=== PATIENT | male | born 1970 | race African-American/Black ===

== ENCOUNTER 2016-08-25 17:31 | Inpatient (IN) | payer SELFPAY ==
[~2016-08-25] VITALS: Ht 175.3 cm; Wt 150.4 kg
[2016-08-25 17:35] VITALS: BP 261/146; PULSE 74; RESP 20; TEMP 98.8; O2SAT 95
[2016-08-25 17:45] VITALS: BP 179/107
--- NOTE | 2016-08-25 18:53 | RADRPT ---
EXAM DATE/TIME: 08/25/2016 18:39 [facility] COMPARISON: No previous studies available for comparison. INDICATIONS : Shortness of breath. MEDICAL HISTORY : None. SURGICAL HISTORY : None. ENCOUNTER: Initial ACUITY: 1 day PAIN SCORE: 0/10 LOCATION: chest FINDINGS: A single view of the chest demonstrates the lungs to be symmetrically aerated without evidence of mas s, infiltrate or effusion. Heart enlarged. Pulmonary vascularity normal. The cardiomediastinal conto urs are unremarkable. Osseous structures are intact. CONCLUSION: Cardiomegaly. Giorgio Watson MD on August 25, 2016 at 18:51 Board Certified Radiologist. This report was verified electronically.
--- NOTE | 2016-08-25 18:54 | RADRPT ---
EXAM DATE/TIME: 08/25/2016 18:42 [facility] COMPARISON: No previous studies available for comparison. INDICATIONS : Patient complains of left foot pain. Laceration to 2nd digit. No known injury. MEDICAL HISTORY : None. SURGICAL HISTORY : None. ENCOUNTER: Initial ACUITY: 1 day PAIN SCORE: 10/10 LOCATION: Left Foot FINDINGS: Three view examination of the left foot demonstrates no dislocation, or fracture. The tarsal bones appear intact. Large plantar calcaneal spur. Spurring at the insertion the Achilles tendon. Mild dege nerative changes of the midfoot. Diffuse soft tissue swelling. Laceration to second digit. No foreign body.. CONCLUSION: Soft tissue swelling without acute bony abnormality. Laceration to the second digit. No foreign body. Giorgio Watson MD on August 25, 2016 at 18:52 Board Certified Radiologist. This report was verified electronically.
--- NOTE | 2016-08-25 18:58 | PD ---
HPI Chief Complaint: Laceration/Skin Injury Time Seen by Provider: 18:54 Travel History International Travel<30 days: No Contact w/Intl Traveler<30days: No Traveled to known affect area: No History of Present Illness HPI 45-year-old male with history of hypertension presents to emergency department for evaluation of a wound to his second toe on his left foot that has been there for over a week. Patient does not recall injuring it. Reports pain at the site with swelling and erythema extending up to his left distal lower extremity. Denies any fever or chills. Patient states that his right ankle has also began to swell. Reports an increase in shortness of breath lately. Denies ingesting or tightness. Denies any recent illnesses, fever, chills. Denies any history of diabetes but states his mother and grandmother were both diabetic. Denies any cardiac or CHF history. Has no other symptoms to report. PFSH Past Medical History Autoimmune Disease: No Blood Disorders: No Cancer: No Cardiovascular Problems: Yes (htn) Genitourinary: No Headaches: Yes Hypertension: Yes Musculoskeletal: No Psychiatric: No Sleep Apnea: Yes (usesbipap mask at night) Past Surgical History Abdominal Surgery: No AICD: No Cardiac Surgery: No Ear Surgery: No Endocrine Surgery: No Eye Surgery: No Gynecologic Surgery: No Pacemaker: No Thoracic Surgery: No Social History Tobacco Use: No Allergies-Medications (Allergen,Severity, Reaction): Coded Allergies: No Known Allergies (Verified Allergy, Severe, 01/05/04) Uncoded Allergies: nka (Allergy, Unknown, 02/26/03) Reported Meds & Prescriptions Reported Meds & Active Scripts Active Review of Systems Except as stated in HPI: all other systems reviewed are Neg Physical Exam Narrative GENERAL: Well-nourished male patient, ambulatory, short of breath, but in no acute distress SKIN: Warm and dry. 1 cm wound on the dorsal aspect of the left second toe proximal to the PIP. HEAD: Atraumatic. Normocephalic. EYES: Pupils equal and round. No scleral icterus. No injection or drainage. ENT: No nasal bleeding or discharge. Mucous membranes pink and moist. NECK: Trachea midline. No JVD. CARDIOVASCULAR: Regular rate and rhythm. No murmur appreciated. RESPIRATORY: No accessory muscle use. Diminished to auscultation. Breath sounds equal bilaterally. GASTROINTESTINAL: Abdomen soft, non-tender, nondistended. Hepatic and splenic margins not palpable. MUSCULOSKELETAL: No obvious deformities. No clubbing. No cyanosis. 2+ left lower extremity edema and 1+ right lower extremity edema. There is erythema and edema extending onto the left dorsal foot. The pulses are palpable. Cap refill is within normal limits. NEUROLOGICAL: Awake and alert. No obvious cranial nerve deficits. Motor grossly within normal limits. Normal speech. PSYCHIATRIC: Appropriate mood and affect; insight and judgment normal. Data Data Last Documented VS Vital Signs Date Time Temp Pulse Resp B/P Pulse Ox O2 Delivery O2 Flow Rate FiO2 08/25/16 17:45 179/107 08/25/16 17:35 98.8 74 20 95 Room Air Orders Complete Blood Count With Diff (08/25/16 18:27) Basic Metabolic Panel (Bmp) (08/25/16 18:27) Foot, Complete ([id number]) (08/25/16 ) Us Leg Venous Doppler (08/25/16 ) Iv Access Insert/Monitor (08/25/16 18:27) Electrocardiogram (08/25/16 ) B-Type Natriuretic Peptide (08/25/16 18:27) Ckmb (Isoenzyme) Profile (08/25/16 18:27) Magnesium (Mg) (08/25/16 18:27) Prothrombin Time / Inr (Pt) (08/25/16 18:27) Act Partial Throm Time (Ptt) (08/25/16 18:27) Troponin I (08/25/16 18:27) Chest, Single Ap (08/25/16 18:27) Hemoglobin (Hgb) A1c (08/25/16 18:27) MDM Medical Decision Making Medical Screen Exam Complete: Yes Emergency Medical Condition: Yes Medical Record Reviewed: Yes Differential Diagnosis Wound infected versus healing versus Cellulitis versus osteomyelitis versus new onset CHF versus DVT Narrative Course 45-year-old male presents to the emergency department for evaluation of a wound on his left second toe with no recollection of injury. Patient has bilateral lower extremity edema, worse on the left than the right with associated erythema on the left. Patient has also been short of breath and is noted to be short of breath after ambulation to his room. Patient will be transferred to a medical pod for more extensive workup. Condition: Stable Shy Kamara Aug 25, 2016 18:58
--- NOTE | 2016-08-25 19:40 | RADRPT ---
EXAM DATE/TIME: 08/25/2016 19:05 [facility] COMPARISON: No previous studies available for comparison. INDICATIONS : Left leg swelling. MEDICAL HISTORY : Hypertension. Sleep apnea. SURGICAL HISTORY : None. ENCOUNTER: Initial ACUITY: 2 day PAIN SCORE: 8/10 LOCATION: Left leg. TECHNIQUE: Venous ultrasound of the leg was performed from the inguinal ligament to the proximal calf. Real-alee e, color Doppler and spectral tracing, compression and augmentation techniques were used. FINDINGS: There is normal compressibility of the deep venous system from the inguinal region to the proximal ca lf. No echogenic clot is seen in the lumen of the common femoral, femoral, popliteal, and posterior tibial veins. There is a normal response of the venous system to proximal and distal augmentation an d respiration. CONCLUSION: No DVT in left leg. Giorgio Watson MD on August 25, 2016 at 19:38 Board Certified Radiologist. This report was verified electronically.
--- NOTE | 2016-08-25 19:51 | PD ---
HPI Chief Complaint: Laceration/Skin Injury Time Seen by Provider: 19:38 Travel History International Travel<30 days: No Contact w/Intl Traveler<30days: No Traveled to known affect area: No History of Present Illness HPI I assumed care of this patient pending lab work and imaging studies. In summary this is a 45-year-old male patient of Dr. Mack presents for evaluation of a wound. He first noticed 1 week ago. It is on the dorsal aspect of the left second toe. It is painful, throbbing, constant, worse with palpation. He does not recall what he cut his foot on. No fevers, chills, drainage. Last tetanus vaccination unknown. There is concerned because he does have lower extremity edema bilaterally. This is been ongoing for some time according to the patient. He denies any chest pain, shortness of breath, paroxysmal nocturnal dyspnea, dyspnea on exertion. No personal history of diabetes or congestive heart failure. No other complaints. PFSH Past Medical History Autoimmune Disease: No Blood Disorders: No Cancer: No Cardiovascular Problems: Yes (htn) Genitourinary: No Headaches: Yes Hypertension: Yes Musculoskeletal: No Psychiatric: No Sleep Apnea: Yes (usesbipap mask at night) Past Surgical History Abdominal Surgery: No AICD: No Cardiac Surgery: No Ear Surgery: No Endocrine Surgery: No Eye Surgery: No Gynecologic Surgery: No Pacemaker: No Thoracic Surgery: No Social History Tobacco Use: No Allergies-Medications (Allergen,Severity, Reaction): Coded Allergies: No Known Allergies (Verified Allergy, Severe, 01/05/04) Uncoded Allergies: nka (Allergy, Unknown, 02/26/03) Reported Meds & Prescriptions Reported Meds & Active Scripts Active Keflex (Cephalexin) 500 Mg Cap 500 Mg PO Q6H 10 Days Bactrim DS (Sulfamethoxazole-Trimethoprim) 800-160 Mg Tab 1 Tab PO BID Entresto (Sacubitril-Valsartan) 97-103 Mg Tab 1 Tab PO BID 30 Days Review of Systems Except as stated in HPI: all other systems reviewed are Neg Physical Exam Narrative GENERAL: Obese male in no acute distress SKIN: Warm and dry. There is a 1 cm linear wound on the dorsal aspect left second toe that is tender to palpation. No significant surrounding erythema. HEAD: Atraumatic. Normocephalic. EYES: Pupils equal and round. No scleral icterus. No injection or drainage. ENT: No nasal bleeding or discharge. Mucous membranes pink and moist. NECK: Trachea midline. No JVD. CARDIOVASCULAR: Regular rate and rhythm. No murmur appreciated. RESPIRATORY: No accessory muscle use. Clear to auscultation. Breath sounds equal bilaterally. GASTROINTESTINAL: Abdomen soft, non-tender, nondistended. Hepatic and splenic margins not palpable. MUSCULOSKELETAL: No obvious deformities. Skin as noted above. 2+ pitting edema in the lower extremities bilaterally. NEUROLOGICAL: Awake and alert. No obvious cranial nerve deficits. Motor grossly within normal limits. Normal speech. PSYCHIATRIC: Appropriate mood and affect; insight and judgment normal. Data Data Last Documented VS Vital Signs Date Time Temp Pulse Resp B/P Pulse Ox O2 Delivery O2 Flow Rate FiO2 08/25/16 22:03 68 254/168 08/25/16 20:38 24 93 Room Air 08/25/16 17:35 98.8 Orders Complete Blood Count With Diff (08/25/16 18:27) Basic Metabolic Panel (Bmp) (08/25/16 18:27) Foot, Complete ([id number]) (08/25/16 ) Us Leg Venous Doppler (08/25/16 ) Iv Access Insert/Monitor (08/25/16 18:27) Electrocardiogram (08/25/16 ) B-Type Natriuretic Peptide (08/25/16 18:27) Ckmb (Isoenzyme) Profile (08/25/16 18:27) Magnesium (Mg) (08/25/16 18:27) Prothrombin Time / Inr (Pt) (08/25/16 18:27) Act Partial Throm Time (Ptt) (08/25/16 18:27) Troponin I (08/25/16 18:27) Chest, Single Ap (08/25/16 18:27) Hemoglobin (Hgb) A1c (08/25/16 18:27) Tetanus/Diphtheria Tox Adult (Tetanus/Di (08/25/16 20:00) Enalaprilat Inj (Vasotec Inj) (08/25/16 21:00) CKMB (08/25/16 19:45) CKMB% (08/25/16 19:45) Hydralazine Inj (Apresoline Inj) (08/25/16 22:00) Labs Laboratory Tests Test 08/25/16 19:45 White Blood Count 6.2 TH/MM3 Red Blood Count 3.99 MIL/MM3 Hemoglobin 12.0 GM/DL Hematocrit 35.1 % Mean Corpuscular Volume 87.9 FL Mean Corpuscular Hemoglobin 30.0 PG Mean Corpuscular Hemoglobin 34.2 % Concent Red Cell Distribution Width 14.0 % Platelet Count 198 TH/MM3 Mean Platelet Volume 10.1 FL Neutrophils (%) (Auto) 66.8 % Lymphocytes (%) (Auto) 20.5 % Monocytes (%) (Auto) 8.5 % Eosinophils (%) (Auto) 3.6 % Basophils (%) (Auto) 0.6 % Neutrophils # (Auto) 4.1 TH/MM3 Lymphocytes # (Auto) 1.3 TH/MM3 Monocytes # (Auto) 0.5 TH/MM3 Eosinophils # (Auto) 0.2 TH/MM3 Basophils # (Auto) 0.0 TH/MM3 CBC Comment DIFF FINAL Differential Comment Prothrombin Time 10.0 SEC Prothromb Time International 0.9 RATIO Ratio Activated Partial 23.7 SEC Thromboplast Time Sodium Level 143 MEQ/L Potassium Level 3.6 MEQ/L Chloride Level 108 MEQ/L Carbon Dioxide Level 27.4 MEQ/L Anion Gap 8 MEQ/L Blood Urea Nitrogen 32 MG/DL Creatinine 3.14 MG/DL Estimat Glomerular Filtration 26 ML/MIN Rate Random Glucose 92 MG/DL Calcium Level 8.3 MG/DL Magnesium Level 2.3 MG/DL Total Creatine Kinase 172 U/L Creatine Kinase MB 1.4 NG/ML Troponin I 0.02 NG/ML MDM Medical Decision Making Medical Screen Exam Complete: Yes Emergency Medical Condition: Yes Medical Record Reviewed: Yes Differential Diagnosis Wound, ulceration, cellulitis, osteomyelitis Narrative Course The patient has a wound with an unknown etiology on the dorsal aspect of his left second toe. It is associated pain. He does have lower extremity edema. Workup was initiated by previous provider. Chest x-ray reveals cardiomegaly with no evidence of acute failure. Lower extremity ultrasound is negative for DVT. Foot x-ray reveals soft tissue swelling without acute bony abnormality, laceration to the second digit. The patient was able to find the name of the blood pressure medication that he has been out of for the past few weeks. he takes entresto 97/103 bid. His lab work has been reviewed with him. He has renal insufficiency with a BUN of 32 and a creatinine of 3.14. We have no recent baseline on record but he has been told by his primary care physician that he has kidney damage secondary to his hypertension. Initially the plan was to discharge the patient for close outpatient follow-up in the next 1-2 days. Patient was given IV Vasotec however his blood pressure remains markedly elevated at 254/168. Therefore the patient will be admitted for further management. Discussed with Cruz Ibrahim who is agreeable with admission to Dr. Westbrook. Clindamycin has been provided for the patient's cellulitis. Procedures EKG Prior to Arrival: Yes Diagnosis Primary Impression: Cellulitis of left foot Additional Impressions: Hypertensive urgency Renal insufficiency Admitting Information Admitting Physician Requests: Admit Scripts Cephalexin (Keflex)500 Mg [id number] Mg PO Q6H 10 Days Ref 0 Prov:Christina Augustin MD 08/25/16 Sulfamethoxazole-Trimethoprim (Bactrim DS)800-160 Mg Tab1 Tab PO BID #20 TAB Ref 0 Prov:Christina Augustin MD 08/25/16 Sacubitril-Valsartan (Entresto)97-103 Mg Tab1 Tab PO BID 30 Days Ref 0 Prov:Christina Augustin MD 08/25/16 Condition: Stable Jose Angel Santizo Aug 25, 2016 19:51
[2016-08-25] MEDS ORDERED: TETANUS/DIPHTHERIA TOXOID ADULT 0.5 ML VIAL IM ONE (20:00)
[2016-08-25 20:38] VITALS: BP_SYST 165; BP_SYST 245; BP_DIAS 146; PULSE 68; RESP 24; O2SAT 93
[2016-08-25 20:43] LABS: AUTOMATED NEUTROPHIL # 4.1 TH/MM3 (1.8-7.7); BASOPHIL % 0.6 % (0.0-2.0); EOSINOPHIL # 0.2 TH/MM3 (0-0.4); EOSINOPHIL % 3.6 % (0.0-4.0); HEMATOCRIT 35.1 % (39.0-51.0); HEMO FLAGS DIFF FINAL; LYMPH % 20.5 % (9.0-44.0); LYMPHOCYTE # 1.3 TH/MM3 (1.0-4.8); MEAN CELL VOLUME 87.9 FL (80.0-100.0); MEAN CORPUSCULAR HGB CONC 34.2 % (32.0-36.0); MONO % 8.5 % (0.0-8.0); NEUT % 66.8 % (16.0-70.0); PLATELET COUNT 198 TH/MM3 (150-450); RED BLOOD COUNT 3.99 MIL/MM3 (4.50-5.90); WHITE BLOOD COUNT 6.2 TH/MM3 (4.0-11.0)
[2016-08-25 20:55] LABS: APTT (PATIENT) 23.7 SEC (24.3-30.1); INTERNATIONAL NORMALIZED RATIO 0.9 RATIO
[2016-08-25] MEDS ORDERED: ENALAPRILAT 2.5 MG/2 ML VIAL IV PUSH ONE (21:00)
[2016-08-25 21:13] LABS: ANION GAP 8 MEQ/L (5-15); BICARBONATE 27.4 MEQ/L (21.0-32.0); BLOOD UREA NITROGEN 32 MG/DL (7-18); CHLORIDE 108 MEQ/L (98-107); GLOMERULAR FILTRATION RATE 26 ML/MIN (>89); MAGNESIUM 2.3 MG/DL (1.5-2.5); POTASSIUM 3.6 MEQ/L (3.5-5.1); SODIUM (NA) 143 MEQ/L (136-145)
[2016-08-25 21:18] LABS: CREATINE KINASE 172 U/L (39-308)
[2016-08-25 21:30] LABS: CKMB 1.4 NG/ML (0.5-3.6)
[2016-08-25] MEDS ORDERED: SACU1TAB4 PO (21:31)
[2016-08-25] MEDS ORDERED: CEPH-460 PO (21:37)
[2016-08-25] MEDS ORDERED: BACT800T5 PO (21:37)
[2016-08-25] MEDS ORDERED: hydrALAZINE HCL 20 MG/ML VIAL IV PUSH ONE (22:00)
[2016-08-25 22:03] VITALS: BP 254/168; PULSE 68
[2016-08-25] MEDS ORDERED: CLINDAMYCIN INJ 600 MG in SODIUM CHLORIDE 0.9% INJ 100 ML IV ONE (22:15)
[2016-08-25] MEDS ORDERED: SODIUM CHLORIDE 0.9% FLUSH 5 ML FLUSH FLUSH PRN (22:30)
[2016-08-25] MEDS: SODIUM CHLOR 0.9% 1000 ML INJ 1,000 ML IV SCH (22:44)
[2016-08-25] MEDS: METOPROLOL SUCCINATE 50 MG EXTENDED RELEASE TAB PO SCH (22:45)
[2016-08-25 23:30] VITALS: BP 250/136; PULSE 70; RESP 28; O2SAT 96
[2016-08-26] VITALS (14 sets, daily range): BP systolic 147–261; BP diastolic 79–126; PULSE 66–80; RESP 21–30; TEMP 97.6–99.6; O2SAT 92–97
--- NOTE | 2016-08-26 01:27 | RADRPT ---
EXAM DATE/TIME: 08/25/2016 23:33 [facility] COMPARISON: No previous studies available for comparison. INDICATIONS : Increased BUN/creatinine. MEDICAL HISTORY : Hypertension. Sleep apnea. SURGICAL HISTORY : None. ENCOUNTER: Initial ACUITY: 1 day PAIN SCORE: 0/10 LOCATION: Bilateral flank MEASUREMENTS: RIGHT KIDNEY: 12.4 x 6.5 x 6.4 cm LEFT KIDNEY: 12.5 x 5.1 x 6.8 cm FINDINGS: RIGHT KIDNEY: Renal cortex is normal in thickness and echotexture. No hydronephrosis, stone, or mass. LEFT KIDNEY: Renal cortex is normal in thickness and echotexture. No hydronephrosis, stone, or mass. BLADDER: Within normal limits given the degree of distension. CONCLUSION: Negative exam. Pb Orosco MD on August 26, 2016 at 1:25 Board Certified Radiologist. This report was verified electronically.
[2016-08-26] MEDS: niCARdipine INJ 25 MG in SODIUM CHLOR 0.9% 250 ML INJ 250 ML IV SCH ×5 (03:14→19:31)
[2016-08-26] MEDS ORDERED: CHLORHEXIDINE GLUCONATE 2 % 1 PACK (2 CLOTHS)(extra cloths) TOP PRN (04:00)
[2016-08-26] MEDS: CHLORHEXIDINE GLUCONATE 2 % 1 PACK (2 CLOTHS)(taper/protocol) TOP SCH (04:00)
[2016-08-26 06:27] LABS: AUTOMATED NEUTROPHIL # 4.1 TH/MM3 (1.8-7.7); BASOPHIL % 0.7 % (0.0-2.0); EOSINOPHIL # 0.2 TH/MM3 (0-0.4); EOSINOPHIL % 3.4 % (0.0-4.0); HEMATOCRIT 40.3 % (39.0-51.0); HEMO FLAGS DIFF FINAL; LYMPH % 19.9 % (9.0-44.0); LYMPHOCYTE # 1.2 TH/MM3 (1.0-4.8); MEAN CELL VOLUME 88.8 FL (80.0-100.0); MEAN CORPUSCULAR HEMOGLOBIN 30.1 PG (27.0-34.0); MEAN CORPUSCULAR HGB CONC 33.9 % (32.0-36.0); MONO % 8.8 % (0.0-8.0); NEUT % 67.2 % (16.0-70.0); PLATELET COUNT 197 TH/MM3 (150-450); RED BLOOD COUNT 4.54 MIL/MM3 (4.50-5.90); RED CELL DISTRIBUTION WIDTH 14.2 % (11.6-17.2)
[2016-08-26 06:52] LABS: BICARBONATE 26.9 MEQ/L (21.0-32.0); POTASSIUM 3.2 MEQ/L (3.5-5.1)
[2016-08-26 06:58] LABS: HDL CHOLESTEROL 31.9 MG/DL (40.0-60.0); URIC ACID 8.6 MG/DL (2.6-7.2)
[2016-08-26] MEDS: cloNIDine HCL 0.1 MG TAB PO PRN (07:32)
[2016-08-26] MEDS: SODIUM CHLORIDE 0.9% FLUSH 5 ML FLUSH FLUSH SCH ×2 (07:32→21:00)
[2016-08-26] MEDS: METOPROLOL SUCCINATE 50 MG EXTENDED RELEASE TAB PO SCH (07:32)
[2016-08-26] MEDS ORDERED: POTASSIUM CHLORIDE 25 MEQ EFFERVESCENT TAB PO ONE (08:30)
--- NOTE | 2016-08-26 10:41 | MH ---
cc: YAMILEX LORENZO MD DATE OF ADMISSION: 08/25/2016 DATE OF 1970 CHIEF COMPLAINT Left foot cellulitis, headache. International travel less than 30 days: None. HISTORY OF PRESENT ILLNESS This is a 45-year-old obese black male, who presented to the emergency room department with left foot edema and cellulitis. According to the record and the patient he recalls no injury but did note the swelling and edema moving up his left lower extremity. The patient denies any fever, no chills. Denies any diabetes. Denies any chest pain. No shortness of breath. No fever. During his initial evaluation phase, it is noted that the patient's blood pressure was severely abnormal. The patient states that he ran out of his blood pressure medications and has not been taking anything for approximately 1 month. He states that he was put on some new medicines by his PCP but did not have any further refills. He also states that he has not returned to his PCP for any further followup. The patient is currently resting in the bed. He is answering very simple questions but is not giving any extra information to his assessment. It is noted in the record that the patient uses BiPAP at night but currently denies any use of BiPAP. Currently the patient does complain of some headache since his admission to the hospital. He is currently resting in the intensive care setting. No family is available. PAST MEDICAL HISTORY According to the record: 1. Hypertension. 2. Obstructive sleep apnea. 3. COPD. 4. Obesity. PAST SURGICAL HISTORY None according to the record or the patient. ALLERGIES No known allergies. MEDICATION Reported medications: Entresto. Keflex Bactrim. SOCIAL HISTORY No tobacco, no alcohol. No illicit drugs reported. REVIEW OF SYSTEMS A 12-point review was done, positives noted: Headache. Left lower leg and foot cellulitis with mild abrasions to the second toe on his left foot and a very small area on the tip of his big toe, positive for edema. Uncontrolled hypertension. Other systems negative or unremarkable. FAMILY HISTORY Family history of diabetes. PHYSICAL EXAMINATION VITAL SIGNS: Temperature is 98.6, pulse 79, respirations labile between 24 and 30. Blood pressure initially noted in the emergency room 254/168, now 215/114 and has continued to decrease now to 148/85. O2 sat 95%, currently on room air. GENERAL: Obese black male, looks to be his stated age, resting in the bed, fairly non-conversational. SKIN: Skin is pink mucous membranes, warm and dry. HEENT: Atraumatic, normocephalic. PERRLA at 2. Mucous membranes are moist. NECK: Neck is obese, thick. CARDIOVASCULAR: S1-S2, distant heart sounds. No murmur, rubs or gallops heard. RESPIRATORY: Low volumes. Diminished breath sounds. GASTROINTESTINAL: Abdomen obese, soft, nontender, nondistended. Active bowel sounds in all four quads. MUSCULOSKELETAL: Moves his extremities with purpose. Noted small abrasions to left foot second toe and great toe. There is edema over the complete left foot extending up into the left ankle. Pulse is intact. NEUROLOGIC: Neurologically: He is alert, awake, speech is clear. PSYCHIATRIC: Mood and affect are quiet. DIAGNOSTIC DATA WBC count 6, RBC 4.54, hemoglobin 13.7, hematocrit 40.3. Other abnormals are monocyte auto count 8.8, PT/INR 0.9. Chemistry, sodium 145, potassium 3.2, chloride 107, amnion gap 11, carbon dioxide 26.9, BUN 30, creatinine 2.74, GFR of 30, uric acid 8.6, triglycerides 117, cholesterol 149, LDL cholesterol 94, HDL 31.9, ratio 4.67. Renin level is pending. Urine creatinine random 82. Microalbumin creatinine ratio 2354. Negative MRSA screen. IMAGING STUDIES Lower extremity: No DVT in left leg. Foot x-ray: Soft tissue swelling without bony abnormality, laceration to the second digit shows no foreign body. Chest x-ray: Cardiomegaly. Renal ultrasound: Negative exam. ASSESSMENT 1. Hypertensive urgency. 2. Renal insufficiency. 3. Cellulitis of the left foot. 4. Hypokalemia. 5. Cardiomegaly. 6. Possible gout, left lower extremity versus gouty arthritis. PLAN 1. Our plan is to admit inpatient status. We will monitor his vital signs q. 4 for any abnormals. His blood pressure will be monitored q. 1 or less until stable. 2. Activity can be out of bed with assistance only. 3. Cardiac monitoring for any dysrhythmias. 4. Heart healthy diet. 5. Intake and output with gentle hydration. 6. The patient has abnormal kidney function, this will be evaluated further. Reconcile medications as well as Satinder lopez. The patient also has IV medications including hydralazine for his blood pressure control and p.o. medications have been initiated. The patient also received a dose of clindamycin in the emergency room and IV Vasotec, a tetanus shot and IV hydralazine for BP stabilization. The patient needs intake and output monitoring and further monitoring of his labs as well as intensive blood pressure management. The patient is full code, full aggressive care and we will follow. Dictated by: DICK Gongora MD ARLEY Saldana/STU /8:59 AM /10:33 AM seen, examined by myself, Dr Lorenzo, Discussed with patient, nifedipine ER 90 mg daily to start today consult nephrology Discussed with mid level provider d/w nurse The exam, history, and the medical decision-making described in the above note were completed with the assistance of the mid-level provider. I reviewed the findings presented. I attest that I had a [id number] encounter with the patient on the same day, and personally performed and documented my assessment and findings in the medical record. HERMINIA
--- NOTE | 2016-08-26 12:20 | EC ---
Study Study Date:08/26/2016 STUDY CONCLUSIONS SUMMARY - Procedure narrative: Transthoracic echocardiography. Image quality was poor. The study was technically limited due to poor acoustic window availability. Scanning was performed from the parasternal, apical, and subcostal acoustic windows. - Left ventricle: Poorly visualized. The cavity size was normal. Wall thickness was increased in a pattern of moderate LVH. Systolic function was normal. The estimated ejection fraction was in the range of 60% to 65%. Regional wall motion abnormalities cannot be excluded. Doppler parameters are consistent with abnormal left ventricular relaxation (grade 1 diastolic dysfunction). - Aortic valve: Valve area: 4.47cm^2(VTI). Valve area: 4.08cm^2 (Vmax). - Tricuspid valve: Mild regurgitation. - Pericardium, extracardiac: A small pericardial effusion was identified. There was no evidence of hemodynamic compromise. If LV function is below 40, please consider prescribing an ACEI or ARB or document rationale for non-use. PROCEDURE DATA STUDY STATUS: Elective. Procedure: Transthoracic echocardiography. Image quality was poor. The study was technically limited due to poor acoustic window availability. Scanning was performed from the parasternal, apical, and subcostal acoustic windows. Study completion: The patient tolerated the procedure well. Transthoracic echocardiography. M-mode, complete 2D, complete spectral Doppler, and color Doppler. Height: Height: 69in. Weight: Weight: 340.3lb. Body mass index: BMI: 50.4kg/m^2. Body surface area: BSA: 2.59m^2. Patient status: Inpatient. CARDIAC ANATOMY LEFT VENTRICLE: Poorly visualized. The cavity size was normal. Wall thickness was increased in a pattern of moderate LVH. Systolic function was normal. The estimated ejection fraction was in the range of 60% to 65%. Regional wall motion abnormalities cannot be excluded. Doppler parameters are consistent with abnormal left ventricular relaxation (grade 1 diastolic dysfunction). AORTIC VALVE: Not well visualized. Probably trileaflet; normal thickness leaflets. Doppler: Transvalvular velocity was within the normal range. There was no stenosis. No regurgitation. Valve area: 4.47cm^2(VTI). Indexed valve area: 1.73cm^2/m^2 (VTI). Valve area: 4.08cm^2 (Vmax). Indexed valve area: 1.58cm^2/m^2 (Vmax). Mean gradient: 4mm Hg (S). AORTA: Aortic root: The aortic root was poorly visualized and mildly dilated. MITRAL VALVE: Poorly visualized. Structurally normal valve. Doppler: Transvalvular velocity was within the normal range. There was no evidence for stenosis. Trace regurgitation. LEFT ATRIUM: The atrium was normal in size. RIGHT VENTRICLE: The cavity size was normal. Wall thickness was normal. PULMONIC VALVE: Doppler: Transvalvular velocity was within the normal range. There was no evidence for stenosis. No regurgitation. TRICUSPID VALVE: Not well visualized. Structurally normal valve. Doppler: Transvalvular velocity was within the normal range. Mild regurgitation. PULMONARY ARTERY: The main pulmonary artery was normal-sized. Systolic pressure was within the normal range. RIGHT ATRIUM: The atrium was normal in size. PERICARDIUM: A small pericardial effusion was identified. There was no evidence of hemodynamic compromise. SYSTEMIC VEINS: Inferior vena cava: The vessel was normal in size. Patient weight: 340.3lb _Ejection fraction:_ 65-75% _Fractional shortening:_ 32% up to 5Kg 5-11.5Kg 11.6-22.9Kg 23-45Kg 45-57Kg Aortic Root 7-13 <17 13-22 17-27 17-27 LA diam 6-13 <23 24-38 33-47 37-40 RVID 10-17 7-15 7-15 7-18 8-17 LVIDd 12-22 <32 24-38 33-47 37-40 LVPW 2-4 3-6 5-7 6-8 7-8 IVS 2-4 3-6 5-7 6-8 7-8 BASIC MEASUREMENTS ADULT NORMAL Left ventricle LV internal dimension, ED, chordal *52.5 mm 43-52 level, PLAX LV internal dimension, ES, chordal 29.5 mm 23-38 level, PLAX Fractional shortening, chordal level, 44 % >29 PLAX LV posterior wall thickness, ED 16.2 mm IVS/LVPW ratio, ED 1.01 <1.3 Ventricular septum Septal thickness, ED 16.3 mm Aorta Root diameter, ED 41 mm Left atrium Anterior-posterior dimension 44 mm Anterior-posterior dimension index 1.7 cm/m^2 <2.2 DOPPLER MEASUREMENTS ADULT NORMAL Aortic valve Peak velocity, S 142 cm/s Mean velocity, S 98.4 cm/s VTI, S 26.6 cm Mean gradient, S 4 mm Hg Valve area, VTI 4.47 cm^2 Valve area index, VTI 1.73 cm^2/m^2 Valve area, Vmax 4.08 cm^2 Valve area index, Vmax 1.58 cm^2/m^2 Mitral valve Peak E-wave velocity 47.9 cm/s Peak A-wave velocity 68.1 cm/s Deceleration time *239 ms 150-230 Peak E/A ratio 0.7 Pulmonic valve Peak velocity, S 66.1 cm/s LEGEND: Mean values are shown as u=mean value. Asterisk (*) garcía values outside specified normal range. Prepared and signed by Valentino Delgado [id number]
[2016-08-26] MEDS: SODIUM CHLOR 0.9% 1000 ML INJ 1,000 ML IV SCH (12:56)
[2016-08-26] MEDS ORDERED: ACETAMINOPHEN 325 MG TAB PO SCH (13:00)
--- NOTE | 2016-08-26 13:34 | EKG ---
Date Performed: 08/25/2016 Time Performed: 20:07:00 PTAGE: 45 years EKG: Sinus rhythm NONSPECIFIC T-WAVE ABNORMALITY ABNORMAL ECG Compared to PREVIOUS TRACING , T-wave abnormality is slightly more prominent. PREVIOUS TRACIN01/04 18.01 DOCTOR: Alonzo Yanez Interpretating Date/Time 08/26/2016 13:34:01
[2016-08-26 14:19] LABS: HEMOGLOBIN A1a 1.2 %; HEMOGLOBIN A1b 1.4 %; HEMOGLOBIN Ao 86.9 %; HEMOGLOBIN LA1C 1.5 %; HEMOGLOBIN P3 3.4 %
[2016-08-26] MEDS: NIFEdipine 90 MG SUSTAINED RELEASE TAB PO SCH (16:11)
[2016-08-26 22:38] LABS: BLOOD, URINE NEG (NEG); COMMENT (UR) CULT NOT INDICATED; CULTURE IF INDICATED CULT NOT INDICATED; GLUCOSE,URINE TRACE mg/dL (NEG); KETONE, URINE NEG (NEG); NITRITE,URINE NEG (NEG); SQUAMOUS EPITHELIAL CELL URINE <1 /hpf (0-5); URINE COLOR LIGHT-YELLOW (YELLW/STRAW)
--- NOTE | 2016-08-26 23:23 | MB ---
cc: GORDON CANO MD DATE OF CONSULTATION 08/26/16 REASON FOR CONSULTATION Elevated BUN and creatinine for evaluation. HISTORY OF PRESENT ILLNESS This is a 45-year-old male with past medical history of hypertension, possible chronic kidney disease, chronic obstructive pulmonary disease, obesity, sleep apnea who came to the hospital with complaint of left foot pain and headache. I was called to see the patient because of elevated BUN and creatinine. The patient was found to have BUN of 37, creatinine of 3.1 on admission. 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 His creatinine was 1.28 in March of 2013. The patient has been following with Dr. Rai and, according to him, he ran out of his blood pressure medicine two weeks ago and started having headache. He also noted that he has swelling in his leg, especially in the left lower leg, he has swelling and there is some pain. He denies any shortness of breath. There is no chest pain. No palpitation. He has this headache and some time he feels dizzy and he has been taking ibuprofen off and on for his headache. There is no dysuria, hematuria or difficulty in passing urine. There is no history of renal stone. PAST MEDICAL HISTORY 1. Hypertension, 2. Chronic obstructive pulmonary disease. 3. Sleep apnea, 4. Possible chronic kidney disease, 5. Morbid obesity. PAST SURGICAL HISTORY None. REVIEW OF SYSTEMS The patient has no history of fever. No sore throat. He has generalized weakness and has had headache. Occasionally, he has dizziness. No chest pain or palpitations. No nausea or vomiting. No abdominal pain. No history of diarrhea. He has increased swelling in the leg and there is some pain in the left lower leg. He has no history of trauma. No dysuria, hematuria or difficulty in passing urine. He has been taking ibuprofen off and on for his headache. SOCIAL HISTORY There is no history of smoking or alcoholism. FAMILY HISTORY Positive for diabetes. ALLERGIES NO KNOWN DRUG ALLERGIES. MEDICATIONS 1. Normal saline 75 an hour. 2. Metoprolol 50 mg once a day. 3. Allopurinol 100 mg once a day. 4. Nifedipine 90 mg once a day. 5. Nicardipine infusion. 6. Clonidine. 7. Hydralazine PHYSICAL EXAMINATION General: The patient is awake, alert. He is not in acute distress. VITAL SIGNS: Blood pressure recorded is 174/101 temperature is 98.7, pulse is 69 and oxygen saturation is 96-97%. HEENT: Pupils equally reacting to light. Nonicteric sclerae. Conjunctivae normal. NECK: Supple. JVD is not elevated. LUNGS: The patient has bilateral good air entry with occasional wheezing. HEART: S1, S2, regular rhythm. ABDOMEN: Soft, lax. There is no tenderness. Bowel sounds positive. EXTREMITIES: He has bilateral 1+ edema. LABORATORY DATA WBC count is 6.0, hemoglobin 13.7, platelet count of 197. Sodium 145, potassium 3.2, chloride 107, bicarb 26.2, BUN 30, creatinine 2.7. Calcium 8.9, uric acid is 8.6, triglyceride 117, cholesterol 149, LDL is 94, HDL is 31.9. PSA was 0.21. Urinalysis showing that he has protein of 300, but this was done in 2012. IMAGING STUDIES The patient had ultrasound of the kidneys done which shows both kidneys normal in size. There is no hydronephrosis, stone or mass. A chest x-ray was done which shows some cardiomegaly. CARDIOLOGY STUDIES Echocardiogram was done which shows that he has ejection fraction of 60-65%. ASSESSMENT 1. Chronic kidney disease with acute kidney injury 2. Hypertension uncontrolled. 3. Hyperkalemia. 4. Cellulitis of left foot. 5. Cardiomegaly. 6. Hyperuricemia possibly gout. 7. History of sleep apnea. The patient has elevated BUN and creatinine. The differential diagnosis for his renal failure is that of hypertensive or renovascular disease or possibility of nonsteroidal anti-inflammatory drugs related or possibility of focal segmental glomerulosclerosis. I did discuss with the patient and told him to avoid taking any nonsteroidal anti-inflammatory drugs at present. We will try to control his blood pressure and we will send the urinalysis and send some serology for the possibility of any vasculitis playing a role here. In the meantime, once his blood pressure is controlled if he has significant proteinuria then he possibly will need kidney biopsy. There is an element of acute kidney injury which could be related to his nonsteroidal anti-inflammatory drugs so we will wait and see how much improvement he has. Thank you for the consultation. I will follow the patient while he is in the hospital. MD CAREY Avery/ /5:25 PM /11:10 PM
[2016-08-27] VITALS (16 sets, daily range): BP systolic 141–177; BP diastolic 68–92; PULSE 72–87; RESP 16–24; TEMP 98–99.1; O2SAT 92–99
[2016-08-27] MEDS: niCARdipine INJ 25 MG in SODIUM CHLOR 0.9% 250 ML INJ 250 ML IV SCH ×2 (00:53→06:00)
[2016-08-27] MEDS: SODIUM CHLOR 0.9% 1000 ML INJ 1,000 ML IV SCH (00:54)
[2016-08-27] MEDS: CHLORHEXIDINE GLUCONATE 2 % 1 PACK (2 CLOTHS)(taper/protocol) TOP SCH (04:00)
[2016-08-27] MEDS: ALLOPURINOL 100 MG TAB PO SCH (08:30)
[2016-08-27] MEDS: METOPROLOL SUCCINATE 50 MG EXTENDED RELEASE TAB PO SCH ×2 (08:30→19:38)
[2016-08-27] MEDS: NIFEdipine 90 MG SUSTAINED RELEASE TAB PO SCH (08:30)
[2016-08-27] MEDS: SODIUM CHLORIDE 0.9% FLUSH 5 ML FLUSH FLUSH SCH ×2 (09:00→19:39)
[2016-08-27 11:38] LABS: BICARBONATE 26.9 MEQ/L (21.0-32.0); POTASSIUM 3.5 MEQ/L (3.5-5.1)
--- NOTE | 2016-08-27 11:39 | HHI.NPPN ---
Subjective General Problems: Hypertension Renal Failure: Chronic, Acute History of Present Illness 45-year-old male with past medical history of hypertension, possible chronic kidney disease, chronic obstructive pulmonary disease, obesity, sleep apnea who came to the hospital with complaint of left foot pain and headache. I was called to see the patient because of elevated BUN and creatinine. The patient was found to have BUN of 37, creatinine of 3.1 on admission. 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 His creatinine was 1.28 in March of 2013. Additional Remarks Patient is alert, no headache, no SOB, eating well. Review of Systems General Constitutional: Fatigue Cardiovascular Cardiac: DUNNE Objective Data Data 08/26/16 08/27/16 19:00 07:00 Intake Total 1332 ml 1657 ml Output Total 1400 ml 2185 ml Balance -68 ml -528 ml Intake IV Total 1332 ml 1657 ml Output Urine Total 1400 ml 2185 ml # Voids 2 # Bowel Movements 0 Vital Signs Date Time Temp Pulse Resp B/P Pulse Ox O2 Delivery O2 Flow Rate FiO2 08/27/16 10:10 77 08/27/16 09:19 96 21 08/27/16 08:00 98.5 74 18 177/74 98 08/27/16 06:00 75 08/27/16 04:00 77 08/27/16 04:00 98.7 77 16 172/92 95 08/27/16 02:00 81 08/27/16 00:00 74 08/27/16 00:00 74 16 148/68 92 08/26/16 22:00 79 08/26/16 20:40 92 21 08/26/16 20:00 98.4 80 24 150/80 94 08/26/16 20:00 80 08/26/16 18:00 80 08/26/16 16:00 98.7 69 21 174/101 96 08/26/16 16:00 69 08/26/16 14:00 67 08/26/16 12:00 69 08/26/16 12:00 97.6 69 24 151/79 97 -: 08/26/16 0457 08/26/16 0451 Physical Exam General Appearance: No Acute Distress, Comfortable Eyes Eye Exam: Pupils Equal Throat Throat Exam: Oral Mucosa [place] & Moist Pulmonary Resp Exam: Breath Sounds Equal, No Distress, Decreased Bases, Diminished Breath Sounds Cardiology CV Exam: Regular Gastrointestinal/Abdomen GI Exam: Soft, Non-Tender, Bowel Sounds Present Extremeties Extremities Exam: Trace Edema Neurologic Neuro Exam: Alert, Awake, Oriented Psychiatric Psych Exam: Appropriate Responses Assessment/Plan Assessment Summary: NASH/Acute Renal Failure, Hypertension, CKD Stage III Problem List: (1) Hypertensive urgency (2) Renal insufficiency (3) Cellulitis of left foot Plan Patient is now off Nicardipine since AM. BP is better, will increase Metoprolol. Creatinine is slightly better, possibly has an element of NASH. Continue Hydration. Renin is done, will also send Aldosterone. Aden Block MD Aug 27, 2016 11:39
[2016-08-27] MEDS: cloNIDine HCL 0.1 MG TAB PO PRN ×2 (13:30→19:39)
[2016-08-27] MEDS: hydrALAZINE HCL 20 MG/ML VIAL IV PRN (13:40)
--- NOTE | 2016-08-27 15:53 | HHI.PR ---
Subjective Interval History alert, oriented, denies c/o Vitals/Results Intake & Output 08/26/16 08/26/16 08/27/16 15:00 23:00 07:00 Intake Total 1332 ml 816 ml 841 ml Output Total 1400 ml 850 ml 1335 ml Balance -68 ml -34 ml -494 ml IV Total 1332 ml 816 ml 841 ml Output Urine Total 1400 ml 850 ml 1335 ml # Voids 2 # Bowel Movements 0 0 Vital Signs Vital Signs Date Time Temp Pulse Resp B/P Pulse Ox O2 Delivery O2 Flow Rate FiO2 08/27/16 14:00 77 08/27/16 12:15 72 08/27/16 12:00 98.4 77 22 141/71 99 08/27/16 10:10 77 08/27/16 09:19 96 21 08/27/16 08:00 98.5 74 18 177/74 98 08/27/16 06:00 75 08/27/16 04:00 77 08/27/16 04:00 98.7 77 16 172/92 95 08/27/16 02:00 81 08/27/16 00:00 74 08/27/16 00:00 74 16 148/68 92 08/26/16 22:00 79 08/26/16 20:40 92 21 08/26/16 20:00 98.4 80 24 150/80 94 08/26/16 20:00 80 08/26/16 18:00 80 08/26/16 16:00 98.7 69 21 174/101 96 08/26/16 16:00 69 CBC/BMP: 08/26/16 0457 08/27/16 1022 Lab Results Laboratory Tests Test 08/26/16 08/27/16 18:40 10:22 Urine Color LIGHT-YELLOW Urine Turbidity CLEAR Urine pH 7.0 Urine Specific [place] 1.009 Urine Protein 100 mg/dL Urine Glucose (UA) TRACE mg/dL Urine Ketones NEG mg/dL Urine Occult Blood NEG Urine Nitrite NEG Urine Bilirubin NEG Urine Urobilinogen LESS THAN 2.0 MG/DL Urine Leukocyte Esterase NEG Urine RBC LESS THAN 1 /hpf Urine WBC LESS THAN 1 /hpf Urine Squamous Epithelial <1 /hpf Cells Microscopic Urinalysis Comment CULT NOT INDICATED Sodium Level 142 MEQ/L Potassium Level 3.5 MEQ/L Chloride Level 107 MEQ/L Carbon Dioxide Level 26.9 MEQ/L Anion Gap 8 MEQ/L Blood Urea Nitrogen 22 MG/DL Creatinine 2.35 MG/DL Estimat Glomerular Filtration 36 ML/MIN Rate Random Glucose 135 MG/DL Calcium Level 8.3 MG/DL Phosphorus Level 2.9 MG/DL Physical Exam General General Appearance: No Acute Distress, Comfortable, Obese Eyes Eye Exam: Pupils Equal Throat Throat Exam: Oral Mucosa [place] & Moist Pulmonary Resp Exam: Breath Sounds Equal, No Distress, Decreased Bases, Diminished Breath Sounds Cardiology CV Exam: Regular Gastrointestinal/Abdomen GI Exam: Soft, Non-Tender, Bowel Sounds Present Musculoskeletal MS Exam: Normal Tone Integumentary Skin Exam: Warm, Dry Skin Remarks ulcer dorsum left 2nd toe Extremeties Extremities Exam: Trace Edema Neurologic Neuro Exam: Alert, Awake, Oriented Psychiatric Psych Exam: Appropriate Responses VTE Prophylaxis VTE Prophylaxis Meds: Heparin Assessment/Plan Assessment/Plan ASSESSMENT . Hypertensive urgency.better today . morbid obesity . Renal insufficiency. . Cellulitis of the left foot. . Hypokalemia. . Cardiomegaly. . gout, Mnx nifedipine lopressor needs to lose weight renal following consult podiatry follow BMP d/w nurse Matthew Varghese MD Aug 27, 2016 15:53
[2016-08-28] VITALS (13 sets, daily range): BP systolic 143–171; BP diastolic 62–96; PULSE 74–90; RESP 17–28; TEMP 98.3–99.7; O2SAT 97–99
[2016-08-28] MEDS: hydrALAZINE HCL 20 MG/ML VIAL IV PRN ×3 (01:05→21:46)
[2016-08-28] MEDS: cloNIDine HCL 0.1 MG TAB PO PRN ×3 (02:26→23:27)
[2016-08-28] MEDS: ACETAMINOPHEN 325 MG TAB PO PRN ×3 (02:27→23:27)
[2016-08-28] MEDS: CHLORHEXIDINE GLUCONATE 2 % 1 PACK (2 CLOTHS)(taper/protocol) TOP SCH (04:00)
[2016-08-28] MEDS: NIFEdipine 90 MG SUSTAINED RELEASE TAB PO SCH (05:04)
[2016-08-28 06:22] LABS: BICARBONATE 24.5 MEQ/L (21.0-32.0); POTASSIUM 3.7 MEQ/L (3.5-5.1)
[2016-08-28] MEDS: ALLOPURINOL 100 MG TAB PO SCH (09:15)
[2016-08-28] MEDS: METOPROLOL SUCCINATE 50 MG EXTENDED RELEASE TAB PO SCH (09:15)
[2016-08-28] MEDS: SODIUM CHLORIDE 0.9% FLUSH 5 ML FLUSH FLUSH SCH ×2 (09:16→21:48)
--- NOTE | 2016-08-28 12:03 | HHI.NPPN ---
Subjective General Problems: Hypertension Renal Failure: Chronic, Acute History of Present Illness 45-year-old male with past medical history of hypertension, possible chronic kidney disease, chronic obstructive pulmonary disease, obesity, sleep apnea who came to the hospital with complaint of left foot pain and headache. I was called to see the patient because of elevated BUN and creatinine. The patient was found to have BUN of 37, creatinine of 3.1 on admission. 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 His creatinine was 1.28 in March of 2013. Additional Remarks Patient is alert, no acute complaints Review of Systems General Constitutional: Fatigue Cardiovascular Cardiac: DUNNE Objective Data Data 08/27/16 08/28/16 19:00 07:00 Intake Total 2477 ml 980 ml Output Total 2450 ml 1480 ml Balance 27 ml -500 ml Intake Oral 1600 ml 980 ml IV Total 877 ml Output Urine Total 2450 ml 1480 ml # Bowel Movements 0 Vital Signs Date Time Temp Pulse Resp B/P Pulse Ox O2 Delivery O2 Flow Rate FiO2 08/28/16 10:00 75 08/28/16 08:00 98.7 76 23 143/69 98 08/28/16 08:00 76 08/28/16 06:00 74 08/28/16 04:00 98.4 75 28 171/86 97 08/28/16 04:00 75 08/28/16 02:00 90 08/28/16 00:00 98.3 76 22 155/96 97 08/28/16 00:00 76 08/27/16 22:00 73 08/27/16 20:00 87 08/27/16 20:00 99.1 82 24 171/81 96 08/27/16 19:52 97 21 08/27/16 18:28 74 08/27/16 16:06 98.0 79 22 154/89 98 08/27/16 16:02 79 08/27/16 14:00 77 08/27/16 12:15 72 08/27/16 12:00 98.4 77 22 141/71 99 -: 08/26/16 0457 08/28/16 0510 Physical Exam General Appearance: No Acute Distress, Comfortable, Obese Eyes Eye Exam: Pupils Equal Throat Throat Exam: Oral Mucosa [place] & Moist Pulmonary Resp Exam: Breath Sounds Equal, No Distress, Decreased Bases, Diminished Breath Sounds Cardiology CV Exam: Regular Gastrointestinal/Abdomen GI Exam: Soft, Non-Tender, Bowel Sounds Present Musculoskeletal MS Exam: Normal Tone Integumentary Skin Exam: Warm, Dry Extremeties Extremities Exam: Trace Edema Neurologic Neuro Exam: Alert, Awake, Oriented Psychiatric Psych Exam: Appropriate Responses Assessment/Plan Assessment Summary: NASH/Acute Renal Failure, Hypertension, CKD Stage III Problem List: (1) Hypertensive urgency (2) Renal insufficiency (3) Cellulitis of left foot Plan BP is better now, metoprolol increased yesterday. Creatinine continues to slowing improve - creatinine 2.3-> 2.2 today, 3.9L UOP/ 24 hours possibly has an element of NASH. Continue PO hydration. Renin, aldosterone levels pending. Dionicio Booker MD Aug 28, 2016 12:03
--- NOTE | 2016-08-28 17:02 | PD.CONS ---
History of Present Illness Service Podiatry Consult Requested By Reason for Consult L 2nd toe wound Primary Care Physician Dajuan Rai III, MD Diagnoses: History of Present Illness Patient relates an open wound to dorsal L 2nd toe present for about a week. he thinks some pair of shoes rubbed the area initially and has not been keeping the area bandaged. He is concerned for infection Past Family Social History Allergies: Coded Allergies: No Known Allergies (Verified Allergy, Severe, 01/05/04) Uncoded Allergies: nka (Allergy, Unknown, 02/26/03) Past Medical History Hypertension. Obstructive sleep apnea. COPD. Obesity. Past Surgical History denies Active Ordered Medications Current Medications Medications (Trade) Dose Ordered Sig/Stan Route Start Time Stop Time Status Last Admin (NS Flush) 2 ml UNSCH PRN FLUSH 08/25/16 22:30 (NS Flush) 2 ml BID FLUSH 08/26/16 09:00 08/28/16 09:16 Clonidine 0.1 mg 0.1 mg Q6H PRN PO 08/25/16 22:30 08/27/16 13:30 (Cardene Inj/NS 250 ml Inj) 260 ml @ 0 mls/hr TITRATE IV 08/26/16 03:00 08/27/16 06:00 Miscellaneous Information Patient in critical care unit? Ass... [id number] XX 08/26/16 04:00 08/26/16 04:00 (Chlorhexidine 2% Cloth) 3 pack DAILY@04 TOP 08/26/16 04:00 08/30/16 04:01 08/28/16 04:00 (Chlorhexidine 2% Cloth) 3 pack UNSCH PRN TOP 08/26/16 04:00 08/31/16 03:55 (Apresoline Inj) 10 mg Q6H PRN IV 08/26/16 07:30 08/28/16 11:06 (Zyloprim) 100 mg DAILY PO 08/27/16 09:00 08/28/16 09:15 (Tylenol) 650 mg Q4H PRN PO 08/26/16 13:30 08/28/16 11:56 (Procardia Xl) 90 mg DAILY PO 08/26/16 16:00 08/28/16 05:04 (Catapres) 0.1 mg Q6H PRN PO 08/26/16 16:00 08/28/16 11:52 (Toprol Xl) 50 mg BID PO 08/27/16 21:00 08/28/16 09:15 Social History denies Physical Exam Vital Signs Vital Signs Date Time Temp Pulse Resp B/P Pulse Ox O2 Delivery O2 Flow Rate FiO2 08/28/16 10:00 75 08/28/16 08:00 98.7 76 23 143/69 98 08/28/16 08:00 76 08/28/16 06:00 74 08/28/16 04:00 98.4 75 28 171/86 97 08/28/16 04:00 75 08/28/16 02:00 90 08/28/16 00:00 98.3 76 22 155/96 97 08/28/16 00:00 76 08/27/16 22:00 73 08/27/16 20:00 87 08/27/16 20:00 99.1 82 24 171/81 96 08/27/16 19:52 97 21 08/27/16 18:28 74 Physical Exam palpable pedal pulses. dorsal L 2nd toe with 0.5cm diameter area of dry fibrotic scab, no drainage, toe not edematous compared to surrounding digits, no purulence. no sign of infection. there is pain to palpation to the area. Laboratory Laboratory Tests Test 08/28/16 05:10 Sodium Level 141 Potassium Level 3.7 Chloride Level 106 Carbon Dioxide Level 24.5 Anion Gap 11 Blood Urea Nitrogen 25 Creatinine 2.23 Estimat Glomerular Filtration 38 Rate Random Glucose 112 Calcium Level 8.7 Result Diagram: 08/26/16 0457 08/28/16 0510 Imaging Last Impressions Renal Ultrasound 08/26/16 0000 Signed Impressions: Service Date/Time: Thursday, August 25, 2016 23:33 - CONCLUSION: Negative exam. bP Orosco MD Chest X-Ray 08/25/16 1827 Signed Impressions: Service Date/Time: Thursday, August 25, 2016 18:39 - CONCLUSION: Cardiomegaly. Giorgio Watson MD Lower Extremity Ultrasound 08/25/16 0000 Signed Impressions: Service Date/Time: Thursday, August 25, 2016 19:05 - CONCLUSION: No DVT in left leg. Giorgio Watson MD Foot X-Ray 08/25/16 0000 Signed Impressions: Service Date/Time: Thursday, August 25, 2016 18:42 - CONCLUSION: Soft tissue swelling without acute bony abnormality. Laceration to the second digit. No foreign body. Giorgio Watson MD Assessment and Plan Assessment and Plan Wound L 2nd toe, not infected Ok to continue a bandaid to the area to prevent friction and irritation. No concern for infection at this time Re-consult if new issues arise. Chandrika Gilliam DPM Aug 28, 2016 17:02
--- NOTE | 2016-08-28 17:44 | HHI.PR ---
Subjective Subjective Remarks resting in bed alert, responds to verbal stimuli appetite good no SOB (Lyndsay Mora) Review of Systems Constitutional Constitutional Remarks 10 point ROS done, generalized weakness, other systems negative (Lyndsay Mora) Musculoskeletal MS Remarks obesity (Lyndsay Mora) Psychiatric Psychiatric: Normal Mood (Lyndsay Mora) Vitals/Results Intake & Output 08/27/16 08/27/16 08/28/16 15:00 23:00 07:00 Intake Total 1927 ml 1050 ml 480 ml Output Total 1850 ml 1080 ml 1000 ml Balance 77 ml -30 ml -520 ml Intake Oral 1050 ml 1050 ml 480 ml IV Total 877 ml Output Urine Total 1850 ml 1080 ml 1000 ml # Bowel Movements 0 0 Vital Signs Vital Signs Date Time Temp Pulse Resp B/P Pulse Ox O2 Delivery O2 Flow Rate FiO2 08/28/16 10:00 75 08/28/16 08:00 98.7 76 23 143/69 98 08/28/16 08:00 76 08/28/16 06:00 74 08/28/16 04:00 98.4 75 28 171/86 97 08/28/16 04:00 75 08/28/16 02:00 90 08/28/16 00:00 98.3 76 22 155/96 97 08/28/16 00:00 76 08/27/16 22:00 73 08/27/16 20:00 87 08/27/16 20:00 99.1 82 24 171/81 96 08/27/16 19:52 97 21 08/27/16 18:28 74 (Lyndsay Mora) CBC/BMP: 08/26/16 0457 08/28/16 0510 Lab Results Laboratory Tests Test 08/28/16 05:10 Sodium Level 141 MEQ/L Potassium Level 3.7 MEQ/L Chloride Level 106 MEQ/L Carbon Dioxide Level 24.5 MEQ/L Anion Gap 11 MEQ/L Blood Urea Nitrogen 25 MG/DL Creatinine 2.23 MG/DL Estimat Glomerular Filtration 38 ML/MIN Rate Random Glucose 112 MG/DL Calcium Level 8.7 MG/DL Imaging Remarks Last Impressions Renal Ultrasound 08/26/16 0000 Signed Impressions: Service Date/Time: Thursday, August 25, 2016 23:33 - CONCLUSION: Negative exam. Pb Orosco MD Chest X-Ray 08/25/16 1827 Signed Impressions: Service Date/Time: Thursday, August 25, 2016 18:39 - CONCLUSION: Cardiomegaly. Giorgio Watson MD Lower Extremity Ultrasound 08/25/16 0000 Signed Impressions: Service Date/Time: Thursday, August 25, 2016 19:05 - CONCLUSION: No DVT in left leg. Giorgio Watson MD Foot X-Ray 08/25/16 0000 Signed Impressions: Service Date/Time: Thursday, August 25, 2016 18:42 - CONCLUSION: Soft tissue swelling without acute bony abnormality. Laceration to the second digit. No foreign body. Giorgio Watson MD Current Medications Active Medications Metoprolol Succinate (Toprol Xl) 50 mg BID PO Last administered on 08/28/16t 09: 15; Admin Dose 50 MG; Start 08/27/16 at 21:00; Stop 08/28/16 at 17:37; Status DC Metoprolol Succinate (Toprol Xl) 75 mg DAILY PO; Start 08/29/16 at 09:00; Status UNV (AbbyLyndsay M. PARTS ORDER AND STOCK CLERK) Physical Exam General General Appearance: No Acute Distress, Comfortable, Obese (Abby,Lyndsay M. PARTS ORDER AND STOCK CLERK) Eyes Eye Exam: Pupils Equal (Cunningham,Lyndsay M. PARTS ORDER AND STOCK CLERK) Ears & Nose Ears & Nose Exam: Nasal Mucosa [place] (Cunningham,Lyndsay M. PARTS ORDER AND STOCK CLERK) Throat Throat Exam: Oral Mucosa [place] & Moist (AbbyLyndsay M. PARTS ORDER AND STOCK CLERK) Pulmonary Resp Exam: Breath Sounds Equal, No Distress, Decreased Bases, Diminished Breath Sounds (Abby,Lyndsay M. PARTS ORDER AND STOCK CLERK) Cardiology CV Exam: Regular (CunninghamLyndsay M. PARTS ORDER AND STOCK CLERK) Gastrointestinal/Abdomen GI Exam: Soft, Non-Tender, Bowel Sounds Present GI Remarks obese (CunninghamLyndsay M. PARTS ORDER AND STOCK CLERK) Musculoskeletal MS Exam: Normal Tone (CunninghamLyndsay M. PARTS ORDER AND STOCK CLERK) Integumentary Skin Exam: Warm, Dry (CunninghamLyndsay M. PARTS ORDER AND STOCK CLERK) Extremeties Extremities Exam: Trace Edema (AbbyLyndsay M. PARTS ORDER AND STOCK CLERK) Neurologic Neuro Exam: Alert, Awake, Oriented (Lyndsay Mora) Psychiatric Psych Exam: Appropriate Responses (Lyndsay Mora) VTE Prophylaxis VTE Prophylaxis Meds: Heparin (Lyndsay Mora) Assessment/Plan Assessment/Plan ASSESSMENT . Hypertensive urgency.better today . morbid obesity . Renal insufficiency. . Cellulitis of the left foot. . Hypokalemia. . Cardiomegaly. . gout, Plan: vitals and labs reviewed. B/P normal range, goal to stable with PO meds. 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 appetite good, renal diet. consult podiatry, appreciate input., no acute infection noted. dressing and monitor bmp am d/w nurse d/w patient (Lyndsay Mora) Assessment/Plan 45yr old male seen and examined today. Feeling better. No headache/CP/SOB. No NVD. BP better but still requiring prn clonidine. Will change toprol XL to 75mg po qday. Monitor BP closley. Agree with above A/P. Plan discussed with Lyndsay Kaplan/lela RN. D/w patient. (Josemanuel Balderas MD) Lyndsay Mora Aug 28, 2016 17:44 Josemanuel Balderas MD Aug 28, 2016 18:19
[2016-08-29] VITALS (12 sets, daily range): BP systolic 164–182; BP diastolic 83–100; PULSE 71–89; RESP 16–27; TEMP 97.8–99.3; O2SAT 97–99
[2016-08-29] MEDS: CHLORHEXIDINE GLUCONATE 2 % 1 PACK (2 CLOTHS)(taper/protocol) TOP SCH (04:00)
[2016-08-29] MEDS: hydrALAZINE HCL 20 MG/ML VIAL IV PRN ×3 (04:12→16:42)
[2016-08-29 06:12] LABS: BICARBONATE 24.4 MEQ/L (21.0-32.0); POTASSIUM 3.7 MEQ/L (3.5-5.1)
[2016-08-29] MEDS: cloNIDine HCL 0.1 MG TAB PO PRN ×3 (06:54→16:42)
[2016-08-29] MEDS: ACETAMINOPHEN 325 MG TAB PO PRN ×2 (06:54→15:25)
[2016-08-29] MEDS: SODIUM CHLORIDE 0.9% FLUSH 5 ML FLUSH FLUSH SCH ×2 (09:49→21:14)
[2016-08-29] MEDS: METOPROLOL SUCCINATE 25 MG EXTENDED RELEASE TAB PO SCH (09:49)
[2016-08-29] MEDS: ALLOPURINOL 100 MG TAB PO SCH (09:49)
[2016-08-29] MEDS: NIFEdipine 90 MG SUSTAINED RELEASE TAB PO SCH (09:49)
--- NOTE | 2016-08-29 11:13 | HHI.PR ---
Subjective Remarks 45yr old male seen and examined today. No acute events overnight. BP still high but not fluctuating much. No CP/SOB/NVD/headache. Objective Objective Results - Vital Signs Date Time Temp Pulse Resp B/P Pulse Ox O2 Delivery O2 Flow Rate FiO2 08/29/16 10:00 77 08/29/16 08:00 85 08/29/16 06:00 83 08/29/16 04:00 81 08/29/16 04:00 99.1 81 22 172/100 98 08/29/16 02:00 86 08/29/16 01:25 14 08/29/16 00:00 98.6 85 27 171/86 98 08/29/16 00:00 85 08/28/16 22:40 99 21 08/28/16 22:00 81 08/28/16 20:00 99.7 82 23 151/62 98 08/28/16 20:00 82 08/28/16 18:00 83 08/28/16 16:00 74 08/28/16 16:00 98.7 74 17 164/77 97 08/28/16 14:00 77 08/28/16 12:00 79 08/28/16 12:00 98.6 79 26 166/81 98 I/O 08/28/16 08/28/16 08/28/16 08/29/16 08/29/16 08/29/16 07:00 15:00 23:00 07:00 15:00 23:00 Intake Total 480 ml 720 ml 500 ml 500 ml Output Total 1000 ml 750 ml 250 ml 400 ml Balance -520 ml -30 ml 250 ml 100 ml Intake Oral 480 ml 720 ml 500 ml 500 ml IV Total 0 ml 0 ml 0 ml Output Urine Total 1000 ml 750 ml 250 ml 400 ml # Voids 1 1 # Bowel Movements 0 0 0 Result Diagram: 08/26/16 0457 08/29/16 0437 Other Results Laboratory Tests Test 08/29/16 04:37 Sodium Level 140 Potassium Level 3.7 Chloride Level 106 Carbon Dioxide Level 24.4 Anion Gap 10 Blood Urea Nitrogen 40 Creatinine 2.60 Estimat Glomerular Filtration 32 Rate Random Glucose 105 Calcium Level 8.7 ROS General: No: Fatigue, Weakness, Other HEENT: No: Sore Throat, Dysphagia, Other Cardiac: No: Chest Pain, Edema, Palpitations, Other Pulmonary: No: Cough, SOB, Wheezing, Other GI: No: Abdominal Pain, BM, Diarrhea, N/V, Other /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 He is alert and awake. HEAD: Normocephalic without any lesion or mass noted. . EYES: Perr[place], Normal eye movement, no icterus. OROPHARYNGEAL: Oropharynx without erythema or edema. MOUTH/THROAT: Buccal mucosa is moist NECK: Supple. CARDIAC: Regular rhythm, regular rate, S1 and S2 are heard. LUNGS: Clear to auscultation bilaterally. ABDOMEN: Soft, nontender, no organomegaly or masses. Bowel sounds are heard in all four quadrants. No rebound. No guarding. EXTREMITIES: Chronic venous stasis changes angélica LE. NEUROLOGICAL: No focal deficits. SKIN:Warm and moist PSYCH: Mood and affect appropriate A/P Assessment and Plan ASSESSMENT . Hypertensive urgency . morbid obesity . Renal insufficiency. . Cellulitis of the left foot. . Hypokalemia. . Cardiomegaly. . gout, Plan: vitals and labs reviewed. Continue Toprol XL 75mg po qday. Add hydralazine 25mg po t4dyiew. 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 appetite good, renal diet. Appreciate podiatry input: no acute infection noted. dressing and monitor bmp am d/w nurse Transfer to med surg unit. Josemanuel Balderas MD Aug 29, 2016 11:13 D/w RN. Josemanuel Balderas MD Aug 29, 2016 11:13
--- NOTE | 2016-08-29 11:22 | HHI.NPPN ---
Subjective General Problems: Hypertension Renal Failure: Chronic, Acute History of Present Illness 45-year-old male with past medical history of hypertension, possible chronic kidney disease, chronic obstructive pulmonary disease, obesity, sleep apnea who came to the hospital with complaint of left foot pain and headache. I was called to see the patient because of elevated BUN and creatinine. The patient was found to have BUN of 37, creatinine of 3.1 on admission. The patient says that he has known history of renal disease, but he has not seen any remediation project engineer. His creatinine was 1.28 in March of 2013. Additional Remarks Patient is alert, no acute complaints Review of Systems General Constitutional: Fatigue Cardiovascular Cardiac: DUNNE Objective Data Data 08/28/16 08/29/16 18:59 06:59 Intake Total 720 ml 1000 ml Output Total 750 ml 650 ml Balance -30 ml 350 ml Intake Oral 720 ml 1000 ml IV Total 0 ml 0 ml Output Urine Total 750 ml 650 ml # Voids 2 # Bowel Movements 0 0 Vital Signs Date Time Temp Pulse Resp B/P Pulse Ox O2 Delivery O2 Flow Rate FiO2 08/29/16 10:00 77 08/29/16 08:00 85 08/29/16 06:00 83 08/29/16 04:00 81 08/29/16 04:00 99.1 81 22 172/100 98 08/29/16 02:00 86 08/29/16 01:25 14 08/29/16 00:00 98.6 85 27 171/86 98 08/29/16 00:00 85 08/28/16 22:40 99 21 08/28/16 22:00 81 08/28/16 20:00 99.7 82 23 151/62 98 08/28/16 20:00 82 08/28/16 18:00 83 08/28/16 16:00 74 08/28/16 16:00 98.7 74 17 164/77 97 08/28/16 14:00 77 08/28/16 12:00 79 08/28/16 12:00 98.6 79 26 166/81 98 -: 08/26/16 0457 08/29/16 0437 Physical Exam General Appearance: No Acute Distress, Comfortable, Obese Eyes Eye Exam: Pupils Equal Ears & Nose Ears & Nose Exam: Nasal Mucosa [place] Throat Throat Exam: Oral Mucosa [place] & Moist Pulmonary Resp Exam: Breath Sounds Equal, No Distress, Decreased Bases, Diminished Breath Sounds Cardiology CV Exam: Regular Gastrointestinal/Abdomen GI Exam: Soft, Non-Tender, Bowel Sounds Present Musculoskeletal MS Exam: Normal Tone Integumentary Skin Exam: Warm, Dry Extremeties Extremities Exam: Trace Edema Neurologic Neuro Exam: Alert, Awake, Oriented Psychiatric Psych Exam: Appropriate Responses Assessment/Plan Assessment Summary: NASH/Acute Renal Failure, Hypertension, CKD Stage III Problem List: (1) Hypertensive urgency (2) Renal insufficiency (3) Cellulitis of left foot Plan Metoprolol XL increased to 75mg daily, hydralazine added today. Will further increase procardia XL from 90mg daily to 60mg BID (ok to give BID dosing) Creatinine 2.2->2.6 today UOP 3.9L/24 hours -> 1.4L today Continue to monitor Continue PO hydration for now Renin, aldosterone levels pending. Dionicio Booker MD Aug 29, 2016 11:22
[2016-08-29] MEDS: hydrALAZINE HCL 25 MG TAB PO SCH ×2 (13:20→21:14)
[2016-08-29] MEDS: NIFEdipine 60 MG SUSTAINED RELEASE TAB PO SCH (21:14)
[2016-08-30] VITALS: BP 160/80; PULSE 89; RESP 18; TEMP 98.2; O2SAT 97
[2016-08-30] MEDS: CHLORHEXIDINE GLUCONATE 2 % 1 PACK (2 CLOTHS)(taper/protocol) TOP SCH (00:34)
[2016-08-30] MEDS: ACETAMINOPHEN 325 MG TAB PO PRN ×2 (01:32→07:38)
[2016-08-30 04:00] VITALS: BP 163/98; PULSE 93; RESP 18; TEMP 98.6; O2SAT 96
[2016-08-30] MEDS: hydrALAZINE HCL 25 MG TAB PO SCH ×2 (06:00→14:52)
[2016-08-30 07:22] LABS: BICARBONATE 23.6 MEQ/L (21.0-32.0); POTASSIUM 3.9 MEQ/L (3.5-5.1)
[2016-08-30 08:00] VITALS: BP 154/89; PULSE 87; PULSE 89; RESP 18; TEMP 98.5; O2SAT 89
[2016-08-30] MEDS: ALLOPURINOL 100 MG TAB PO SCH (10:10)
[2016-08-30] MEDS: NIFEdipine 60 MG SUSTAINED RELEASE TAB PO SCH (10:11)
[2016-08-30] MEDS: METOPROLOL SUCCINATE 25 MG EXTENDED RELEASE TAB PO SCH (10:11)
[2016-08-30] MEDS: SODIUM CHLORIDE 0.9% FLUSH 5 ML FLUSH FLUSH SCH (10:11)
--- NOTE | 2016-08-30 10:17 | HHI.PR ---
Subjective Remarks Resting in bed Texing on on cell phone Alert Appetite good And occasional headache No other acute pain Afebrile (Lyndsay Mora) Objective Objective Results - Vital Signs Date Time Temp Pulse Resp B/P Pulse Ox O2 Delivery O2 Flow Rate FiO2 08/30/16 08:00 98.5 87 18 154/89 89 08/30/16 08:00 89 08/30/16 04:00 98.6 93 18 163/98 96 08/30/16 00:00 98.2 89 18 160/80 97 08/29/16 20:00 98.3 84 16 164/97 97 08/29/16 19:56 89 08/29/16 17:15 97.8 88 16 164/96 99 08/29/16 16:00 74 08/29/16 14:00 71 08/29/16 12:00 98.7 78 18 173/83 98 08/29/16 12:00 82 I/O 08/29/16 08/29/16 08/29/16 08/30/16 08/30/16 08/30/16 07:00 15:00 23:00 07:00 15:00 23:00 Intake Total 500 ml 0 ml 246 ml 240 ml Output Total 400 ml 420 ml 300 ml 300 ml Balance 100 ml -420 ml -54 ml -60 ml Intake Oral 500 ml 240 ml 240 ml IV Total 0 ml 0 ml 6 ml Output Urine Total 400 ml 420 ml 300 ml 300 ml # Voids 1 # Bowel Movements 0 0 0 (Lyndsay Mora) Result Diagram: 08/26/16 0457 08/30/16 0611 ROS General: Weakness (generalized, but improving), Other (10 point ROS done positive for generalized weakness and mild occasional headache otherwise negative or unremarkable systems) Neuro/MS: Headache (Lyndsay Mora) Physical Exam Physical Exam PHYSICAL EXAMINATION GENERAL: This is an obese well-developed, well-nourished male who appears to be in no acute distress. He is alert and awake HEAD: Normocephalic without any lesion or mass noted. Facial features appear symmetric. OROPHARYNGEAL: Oropharynx without erythema or edema. NECK: Supple. No nuchal rigidity or lymphadenopathy. Trachea midline without deviation. CARDIAC: Regular rhythm, regular rate, S1 and S2 are heard. Murmur none no gallops or rubs. LUNGS: Clear to auscultation bilaterally. Distant lung sounds no wheeze, no rhonchi No use of accessory muscles on inspiration or expiration. ABDOMEN: Soft, nontender, no organomegaly or masses. Bowel sounds are heard in all four quadrants. No rebound. No guarding. EXTREMITIES: Trace edema. Pulses equal bilateral. NEUROLOGICAL: Patient mood and affect appropriate. No focal deficit SKIN:Warm and moist, pink mucous membranes Objective Remarks I'm feeling much better, (Lyndsay Mora) A/P Assessment and Plan . Hypertensive urgency . morbid obesity . Renal insufficiency. . Cellulitis of the left foot. . Hypokalemia. . Cardiomegaly. . gout, Plan: vitals and labs reviewed. Patient is afebrile and vital signs within normal ranges. Complete blood count normal which includes hemoglobin. Hypertension urgency, now under control with by mouth meds procardia, apresoline, toprol, clonadine prn. renal following, NASH is persists, no acute changes. We'll monitor labs appetite good, renal diet. Appreciate podiatry input: no acute infection noted. dressing and monitor We'll increase activity today with physical therapy eval. Discharge planning in process and soon d/w nurse D/W Dr. Osman, patient seen on his behalf (Lyndsay Mora) Assessment and Plan pt is seen & examined d/w PT d/w Lyndsay medically stable for d/c d/c home today see [facility] see orders f/u pcp f/u w renal (Gee Begum MD) Lyndsay Mora Aug 30, 2016 10:16 Gee Begum MD Aug 30, 2016 12:15
[2016-08-30 12:00] VITALS: BP 163/89; PULSE 84; RESP 20; TEMP 98.3; O2SAT 95
[2016-08-30] MEDS ORDERED: METO25TA6 PO (12:20)
[2016-08-30] MEDS ORDERED: CLON.1 PO (12:20)
[2016-08-30] MEDS ORDERED: ALLO100 PO (12:20)
[2016-08-30] MEDS ORDERED: NIFE60TA8 PO (12:20)
[2016-08-30] MEDS ORDERED: HYDR25TA35 PO (12:21)
[2016-08-30 15:51] LABS: MYELOPEROXIDASE LESS THAN 1.0 AI (<1.0); PROTEINASE-3 LESS THAN 1.0 AI (<1.0)
--- NOTE | 2016-09-05 17:49 | HHI.DS ---
Discharge Summary Admission Date Aug 25, 2016 at 22:11 Discharge Date: Aug 30, 2016 Admitting Diagnosis hypertensive urgency, left foot cellulitis, renal insufficiency (1) Hypertensive urgency (2) Cellulitis of left foot (3) Renal insufficiency Imaging Last Impressions Renal Ultrasound 08/26/16 0000 Signed Impressions: Service Date/Time: Thursday, August 25, 2016 23:33 - CONCLUSION: Negative exam. Pb Orosco MD Chest X-Ray 08/25/16 1827 Signed Impressions: Service Date/Time: Thursday, August 25, 2016 18:39 - CONCLUSION: Cardiomegaly. Giorgio Watson MD Lower Extremity Ultrasound 08/25/16 0000 Signed Impressions: Service Date/Time: Thursday, August 25, 2016 19:05 - CONCLUSION: No DVT in left leg. Giorgio Watson MD Foot X-Ray 08/25/16 0000 Signed Impressions: Service Date/Time: Thursday, August 25, 2016 18:42 - CONCLUSION: Soft tissue swelling without acute bony abnormality. Laceration to the second digit. No foreign body. Giorgio Watson MD Hospital Course This is a 45-year-old obese black male, who presented to the emergency room department with left foot edema and cellulitis. According to the record and the patient he recalls no injury but did note the swelling and edema moving up his left lower extremity. The patient denies any fever, no chills. Denies any diabetes. Denies any chest pain. No shortness of breath. No fever. During his initial evaluation phase, it is noted that the patient's blood pressure was severely abnormal. The patient states that he ran out of his blood pressure medications and has not been taking anything for approximately 1 month. He states that he was put on some new medicines by his PCP but did not have any further refills. He also states that he has not returned to his PCP for any further followup. It was noted in the record that the patient uses BiPAP at night but currently denies any use of BiPAP.Pt. was not a good historian. Pt. admitted and evaluated in the ED: DIAGNOSTIC DATA WBC count 6, RBC 4.54, hemoglobin 13.7, hematocrit 40.3. Other abnormals are monocyte auto count 8.8, PT/INR 0.9. Chemistry, sodium 145, potassium 3.2, chloride 107, amnion gap 11, carbon dioxide 26.9, BUN 30, creatinine 2.74, GFR of 30, uric acid 8.6, triglycerides 117, cholesterol 149, LDL cholesterol 94, HDL 31.9, ratio 4.67. Renin level is pending. Urine creatinine random 82. Microalbumin creatinine ratio 2354. Negative MRSA screen. IMAGING STUDIES Lower extremity: No DVT in left leg. Foot x-ray: Soft tissue swelling without bony abnormality, laceration to the second digit shows no foreign body. Chest x-ray: Cardiomegaly. Renal ultrasound: Negative exam. Admitted with: 1. Hypertensive urgency. 2. Renal insufficiency. 3. Cellulitis of the left foot. 4. Hypokalemia. 5. Cardiomegaly. 6. Possible gout, left lower extremity versus gouty arthritis. During the course of the hospitalization, the following took place: Patient was admitted, cardiac monitoring was ordered Patient was put on IV medications to control blood pressure including hydralazine, his home medications were restarted Patient was started on nifedipine He was put on clindamycin for treatment of cellulitis Renal function was monitored closely, renal ultrasound was done Nephrology was consulted for evaluation, medications were adjusted Further laboratory workup was ordered to evaluate renal dysfunction He was encouraged to continue with increase by mouth fluids Renal function did stabilize Patient continued to make urine Podiatry was consulted to evaluate wound to left foot Patient had examination for a wound to the left foot second toe Recommendations were made to continue Band-Aid to prevent friction and irritation. No concern for infection. Blood pressure finally stabilized Patient was counseled about compliance of medication Patient was stable for discharge Patient was discharged home in stable condition Pt Condition on Discharge: Stable Discharge Disposition: Discharge Home Discharge Instructions DIET: Follow Instructions for: Heart Healthy Diet Fluid Restrictions: none Activities you can perform: Regular-No Restrictions Follow up Referrals: Nephrology - 2 Weeks PCP Follow-up - 1 Week New Medications: Clonidine (Catapres) 0.1 Mg Tab 0.1 MG PO bid' htn #30 TAB Hydralazine (Hydralazine) 25 Mg Tab 25 MG PO Q8HR htn #90 TAB Metoprolol Succinate ER 24 HR (Metoprolol Succinate ER 24 HR) 25 Mg Tab 75 MG PO DAILY htn #30 TAB Nifedipine ER 24 HR (Nifedipine ER 24 HR) 60 Mg Tab 60 MG PO BID htn #60 TAB Discontinued Medications: Cephalexin (Keflex) 500 Mg Cap 500 MG PO Q6H Infection Days 10 Ref 0 CAP Sacubitril-Valsartan (Entresto) 97-103 Mg Tab 1 TAB PO BID Heart Failure Days 30 Ref 0 TAB Sulfamethoxazole-Trimethoprim (Bactrim DS) 800-160 Mg Tab 1 TAB PO BID Infection #20 Ref 0 TAB Arpita Cazares Sep 05, 2016 17:49
== END 2016-08-30 15:41 | disposition home or self-care (01) | DRG 603 ==
LOC: NEPC 17:31 → NEDA 22:11 → NEDH 08-26 02:11 → HIMN 08-26 03:35 → N04A 08-29 17:15
PROVIDERS: ADMIT Specialist; ATTEND Specialist
DX: L03.116 Cellulitis of left lower limb (principal); N17.9 Acute kidney failure, unspecified; N18.3 Chronic kidney disease, stage 3 (moderate); E87.5 Hyperkalemia; Z68.43 Body mass index [BMI] 50.0-59.9, adult; E66.01 Morbid (severe) obesity due to excess calories; I16.0 Hypertensive urgency; R51 Headache; E87.6 Hypokalemia; G47.33 Obstructive sleep apnea (adult) (pediatric); I12.9 Hypertensive chronic kidney disease with stage 1 through stage 4 chronic kidney disease, or unspecified chronic kidney disease; J44.9 Chronic obstructive pulmonary disease, unspecified; M10.9 Gout, unspecified; I51.7 Cardiomegaly; Z83.3 Family history of diabetes mellitus
CPT/HCPCS: 71010; 73630; 76775; 76937; 80048; 80061; 81001; 82043; 82088; 82550; 82552; 83036; 83735; 83880; 84100; 84244; 84484; 84550; 85025; 85610; 85730; 86021; 86038; 87641; 90471; 90714; 93005; 93306; 93971; 96374; J0360; J7030; J7050

== ENCOUNTER 2017-03-17 17:47 | Inpatient (IN) | payer OTHER ==
[~2017-03-17] VITALS: Ht 175.3 cm; Wt 154.5 kg
[~2017-03-17 17:47] MED LIST: CLON.1 PO; HYDR25TA35 PO; METO25TA6 PO; NIFE60TA8 PO
[2017-03-17 17:49] VITALS: BP 201/123; PULSE 88; RESP 22; TEMP 99.4; O2SAT 96
[2017-03-17] MEDS ORDERED: HYDR25TA5 PO (20:45)
[2017-03-17] MEDS ORDERED: AMLO10 PO (20:45)
[2017-03-17] MEDS ORDERED: HYDR-3801 PO (20:45)
[2017-03-17 20:51] VITALS: BP 219/119; PULSE 67; RESP 20; O2SAT 95
[2017-03-17 21:01] VITALS: BP 188/93; PULSE 70; O2SAT 98
--- NOTE | 2017-03-17 21:02 | PD ---
HPI . Wound to the left lower extremity Chief Complaint: Skin Problem Time Seen by Provider: 20:59 Travel History International Travel<30 days: No Contact w/Intl Traveler<30days: No Traveled to known affect area: No History of Present Illness HPI 46-year-old male presents to the emergency department for evaluation of foul smelling purulent draining wound to the left lower extremity. The wound is just superior to the left inner ankle. Patient first noticed this wound approximately a month ago. Patient did not remember any injury or trauma causing this wound. Patient states he is up-to-date on his tetanus. He received a tetanus shot a year ago at another emergency facility. Patient states the pain is increasing and it starts on his left knee and radiates all the way down to the foot. He first noticed this foul smell approximately 2 weeks ago. The wound is 4cm 5cm. the patient states his only other medical history is hypertension and he takes amlodipine daily. Patient denies any fever , however states he has been taking Motrin [id number] for the pain so that occurred cover the fever. Patient has been experiencing chills for the last week. Patient denies any chest pain, shortness breath, nausea, vomiting, diarrhea or lightheadedness. PFSH Past Medical History Autoimmune Disease: No Blood Disorders: No Cancer: No Cardiovascular Problems: Yes (htn) Gastrointestinal Disorders: No Genitourinary: No Headaches: Yes Hypertension: Yes Musculoskeletal: No Psychiatric: No Sleep Apnea: Yes (pt says no) Tetanus Vaccination: < 5 Years Influenza Vaccination: No Past Surgical History Abdominal Surgery: No AICD: No Cardiac Surgery: No Ear Surgery: No Endocrine Surgery: No Eye Surgery: No Gynecologic Surgery: No Neurologic Surgery: No Pacemaker: No Thoracic Surgery: No Other Surgery: No Social History Alcohol Use: Yes (occ) Tobacco Use: No Substance Use: No Allergies-Medications (Allergen,Severity, Reaction): Coded Allergies: No Known Allergies (Verified , 03/17/17) Uncoded Allergies: nka (Allergy, Unknown, 02/26/03) Reported Meds & Prescriptions Reported Meds & Active Scripts Active Hydralazine (Hydralazine HCl) 25 Mg Tab 25 Mg PO Q8HR Reported Hydrochlorothiazide 25 Mg Tab 25 Mg PO DAILY Norvasc (Amlodipine Besylate) 10 Mg Tab 10 Mg PO DAILY Hydralazine (Hydralazine HCl) 100 Mg Tab 25 Mg PO Q8HR Take with meals Review of Systems Except as stated in HPI: all other systems reviewed are Neg Physical Exam Narrative GENERAL: Well-nourished well-developed obese 46-year-old -[place] male in no acute distress SKIN: 4 cm x 5 cm purulent foul-smelling draining wound to left lower inner leg just superior to the medial malleolus. HEAD: Atraumatic. Normocephalic. EYES: Pupils equal and round. No scleral icterus. No injection or drainage. ENT: No nasal bleeding or discharge. Mucous membranes pink and moist. NECK: Trachea midline. No JVD. CARDIOVASCULAR: Regular rate and rhythm. No murmur appreciated. Pedal pulses palpated bilaterally. RESPIRATORY: No accessory muscle use. Clear to auscultation. Breath sounds equal bilaterally. GASTROINTESTINAL: Abdomen obese, non-tender. Hepatic and splenic margins not palpable. MUSCULOSKELETAL: No obvious deformities. No clubbing. No cyanosis. No edema. Dorsi and pedal flexion within normal limits. NEUROLOGICAL: Awake and alert. No obvious cranial nerve deficits. Motor grossly within normal limits. Normal speech. PSYCHIATRIC: Appropriate mood and affect; insight and judgment normal. Data Data Last Documented VS Vital Signs Date Time Temp Pulse Resp B/P (MAP) Pulse Ox O2 Delivery O2 Flow Rate FiO2 03/17/17 21:01 70 188/93 (124) 98 Room Air 03/17/17 20:51 20 03/17/17 17:49 99.4 Orders Orders Basic Metabolic Panel (Bmp) (03/17/17 21:03) Complete Blood Count With Diff (03/17/17 21:03) Wound Culture And Gram Stain (03/17/17 21:03) Iv Access Insert/Monitor (03/17/17 21:03) Ketorolac Inj (Toradol Inj) (03/17/17 21:15) C-Reactive Protein (Crp) (03/17/17 21:21) Tibia/Fibula (Ap/Lat) (03/17/17 21:21) Prothrombin Time / Inr (Pt) (03/17/17 21:21) Act Partial Throm Time (Ptt) (03/17/17 21:21) Blood Culture (03/17/17 21:21) Lactic Acid (03/17/17 21:31) Potassium Chloride (Kcl) (03/17/17 22:15) Vancomycin Inj (Vancomycin Inj) (03/17/17 22:15) Labs Laboratory Tests Test 03/17/17 21:03 03/17/17 21:13 03/17/17 21:33 03/17/17 21:44 White Blood Count 6.1 TH/MM3 Red Blood Count 4.22 MIL/MM3 Hemoglobin 12.6 GM/DL Hematocrit 37.0 % Mean Corpuscular Volume 87.8 FL Mean Corpuscular Hemoglobin 29.9 PG Mean Corpuscular Hemoglobin Concent 34.1 % Red Cell Distribution Width 14.3 % Platelet Count 293 TH/MM3 Mean Platelet Volume 7.9 FL Neutrophils (%) (Auto) 60.5 % Lymphocytes (%) (Auto) 24.3 % Monocytes (%) (Auto) 10.4 % Eosinophils (%) (Auto) 4.1 % Basophils (%) (Auto) 0.7 % Neutrophils # (Auto) 3.7 TH/MM3 Lymphocytes # (Auto) 1.5 TH/MM3 Monocytes # (Auto) 0.6 TH/MM3 Eosinophils # (Auto) 0.3 TH/MM3 Basophils # (Auto) 0.0 TH/MM3 CBC Comment DIFF FINAL Differential Comment Blood Urea Nitrogen 39 MG/DL Creatinine 3.44 MG/DL Random Glucose 135 MG/DL Calcium Level 8.7 MG/DL Sodium Level 139 MEQ/L Potassium Level 2.8 MEQ/L Chloride Level 103 MEQ/L Carbon Dioxide Level 29.4 MEQ/L Anion Gap 7 MEQ/L Estimat Glomerular Filtration Rate 23 ML/MIN Lactic Acid Level 0.9 mmol/L Prothrombin Time 9.7 SEC Prothromb Time International Ratio 0.9 RATIO Activated Partial Thromboplast Time 24.9 SEC [facility] Medical Decision Making Medical Screen Exam Complete: Yes Emergency Medical Condition: Yes Medical Record Reviewed: Yes Interpretation(s) Hypertensive, afebrile Differential Diagnosis Differential diagnoses include but are not limited to gangrene, sepsis, cellulitis Narrative Course 46-year-old male presents emergency department for evaluation of purulent foul smelling draining wound to the left inner lower leg just superior to the ankle that he first noticed approximately a month ago. Wound is 4cm x 5 cm. Patient states the wound became foul-smelling approximately 2 weeks ago. Patient denies any fevers but is taking Motrin around the clock for pain. Patient reports that his only major medical history is hypertension. Patient does not remember any trauma or injury occurring to the leg. Pedal pulses palpated bilaterally, neurovascularly bilateral feet intact. CBC, BMP, lactic acid, blood cultures, PT/INR, wound culture ordered and pending. Toradol 30 mg IV ordered for pain. CBC hemoglobin slightly decreased at 12.6 otherwise shows no acute abnormalities BMP hypokalemia at 2.8, elevated BUN/creatinine at 39, elevated creatinine at 3.44, decreased GFR at 23 PT/INR shows no acute abnormalities LACTIC ACID within normal limits at 0.9 BLOOD CULTURES ordered and pending WOUND CULTURE ordered and pending TIB/FIB X-RAY shows intact left tibial and fibula. No radiopaque foreign body. CPR still pending at this time. Dr Augustin assumes care of this patient at this time. Please see her documentation for further details and disposition. Diagnosis Primary Impression: Wound infection Teodora Hudson Mar 17, 2017 21:02
[2017-03-17] MEDS ORDERED: KETOROLAC TROMETHAMINE 30 MG/ML (IVP) VIAL IVP ONE (21:15)
--- NOTE | 2017-03-17 21:32 | PD ---
Physical Exam Date Seen by Provider: Mar 17, 2017 Time Seen by Provider: 21:23 Narrative GENERAL: Well-developed morbidly obese male in no acute distress no respiratory distress SKIN: Warm and dry. Attention left lower extremity medial distal aspect just proximal to the medial malleolus is an area of eschar with cloudy purulent drainage with surrounding erythema and minimal induration and no subcutaneous crepitus; intact dorsi flexion plantar flexion of left foot. CARDIOVASCULAR: Regular rate and rhythm without murmurs, gallops, or rubs. RESPIRATORY: Breath sounds equal bilaterally. No accessory muscle use. GASTROINTESTINAL: Abdomen soft, non-tender, nondistended. MUSCULOSKELETAL: No cyanosis, or edema. BACK: Nontender without obvious deformity. No CVA tenderness. Data Data Last Documented VS Vital Signs Date Time Temp Pulse Resp B/P (MAP) Pulse Ox O2 Delivery O2 Flow Rate FiO2 03/17/17 21:01 70 188/93 (124) 98 Room Air 03/17/17 20:51 20 03/17/17 17:49 99.4 Orders Orders Basic Metabolic Panel (Bmp) (03/17/17 21:03) Complete Blood Count With Diff (03/17/17 21:03) Wound Culture And Gram Stain (03/17/17 21:03) Iv Access Insert/Monitor (03/17/17 21:03) Ketorolac Inj (Toradol Inj) (03/17/17 21:15) C-Reactive Protein (Crp) (03/17/17 21:21) Tibia/Fibula (Ap/Lat) (03/17/17 21:21) Prothrombin Time / Inr (Pt) (03/17/17 21:21) Act Partial Throm Time (Ptt) (03/17/17 21:21) Blood Culture (03/17/17 21:21) Lactic Acid (03/17/17 21:31) Potassium Chloride (Kcl) (03/17/17 22:15) Vancomycin Inj (Vancomycin Inj) (03/17/17 22:15) Labs Laboratory Tests Test 03/17/17 21:03 03/17/17 21:13 03/17/17 21:33 03/17/17 21:44 White Blood Count 6.1 TH/MM3 Red Blood Count 4.22 MIL/MM3 Hemoglobin 12.6 GM/DL Hematocrit 37.0 % Mean Corpuscular Volume 87.8 FL Mean Corpuscular Hemoglobin 29.9 PG Mean Corpuscular Hemoglobin Concent 34.1 % Red Cell Distribution Width 14.3 % Platelet Count 293 TH/MM3 Mean Platelet Volume 7.9 FL Neutrophils (%) (Auto) 60.5 % Lymphocytes (%) (Auto) 24.3 % Monocytes (%) (Auto) 10.4 % Eosinophils (%) (Auto) 4.1 % Basophils (%) (Auto) 0.7 % Neutrophils # (Auto) 3.7 TH/MM3 Lymphocytes # (Auto) 1.5 TH/MM3 Monocytes # (Auto) 0.6 TH/MM3 Eosinophils # (Auto) 0.3 TH/MM3 Basophils # (Auto) 0.0 TH/MM3 CBC Comment DIFF FINAL Differential Comment Blood Urea Nitrogen 39 MG/DL Creatinine 3.44 MG/DL Random Glucose 135 MG/DL Calcium Level 8.7 MG/DL Sodium Level 139 MEQ/L Potassium Level 2.8 MEQ/L Chloride Level 103 MEQ/L Carbon Dioxide Level 29.4 MEQ/L Anion Gap 7 MEQ/L Estimat Glomerular Filtration Rate 23 ML/MIN Lactic Acid Level 0.9 mmol/L Prothrombin Time 9.7 SEC Prothromb Time International Ratio 0.9 RATIO Activated Partial Thromboplast Time 24.9 SEC [facility] Medical Record Reviewed: Yes Supervised Visit with MONICA: Yes Interpretation(s) Last Impressions Tibia/Fibula X-Ray 03/17/172120 Signed Impressions: Service Date/Time: February 21:42 - CONCLUSION: Intact left tibia and fibula. No radiopaque foreign body. Cruz Segura MD CBC & BMP Diagram 03/17/17 21:03 03/17/17 21:13 Calcium Level 8.7 Vital Signs Date Time Temp Pulse Resp B/P (MAP) Pulse Ox O2 Delivery O2 Flow Rate FiO2 03/17/17 21:01 70 188/93 (124) 98 Room Air 03/17/17 20:51 67 20 219/119 (152) 95 Room Air 03/17/17 17:49 99.4 88 22 201/123 (149) 96 Room Air Differential Diagnosis Wound infection, cellulitis, subacute abscess, wet gangrene; no findings for necrotizing fasciitis at this time Narrative Course IV access was obtained specimens collected and sent for resulting cultures obtained patient administered IV antibiotic imaging study ordered I, Dr. Salter, have reviewed the advance practice practitioner's documentation and am in agreement, met with the patient face to face, made the diagnosis, and the medical decision making was done by me. *My assessment and Findings: 46-year-old male presents to the emergency department for complaint of left lower extremity wound with drainage 10 over 10 in intensity of pain with duration of one month. Symptoms worsening over the past 3 weeks. Patient is unaware of any fever chills but reportedly has been taking ibuprofen 3-4 times daily. Patient denies any chronic medical concerns her condition. Review of medical records however identifies patient was admitted August 2016 at which time he was identified to have history of hypertension chronic kidney disease COPD obesity and sleep apnea. During his hospitalization he was treated with metoprolol nifedipine and required a nicardipine infusion as well as was treated with clonidine and hydralazine. Patient was seen by nephrology service as well and was encouraged at that time that the patient not use nonsteroidal anti-inflammatory medication as it was a concern that he may be overusing this medicine. Diagnosis Primary Impression: Traumatic open wound of lower leg with infection Additional Impressions: Hypokalemia Acute on chronic renal insufficiency Admitting Information Admitting Physician Requests: Admit Christina Augustin MD Mar 17, 2017 21:32
[2017-03-17 21:42] LABS: AUTOMATED NEUTROPHIL # 3.7 TH/MM3 (1.8-7.7); BASOPHIL % 0.7 % (0.0-2.0); EOSINOPHIL # 0.3 TH/MM3 (0-0.4); EOSINOPHIL % 4.1 % (0.0-4.0); HEMO FLAGS DIFF FINAL; LYMPH % 24.3 % (9.0-44.0); LYMPHOCYTE # 1.5 TH/MM3 (1.0-4.8); MEAN CELL VOLUME 87.8 FL (80.0-100.0); MEAN CORPUSCULAR HEMOGLOBIN 29.9 PG (27.0-34.0); MEAN CORPUSCULAR HGB CONC 34.1 % (32.0-36.0); MONO % 10.4 % (0.0-8.0); NEUT % 60.5 % (16.0-70.0); PLATELET COUNT 293 TH/MM3 (150-450); RED BLOOD COUNT 4.22 MIL/MM3 (4.50-5.90); RED CELL DISTRIBUTION WIDTH 14.3 % (11.6-17.2); WHITE BLOOD COUNT 6.1 TH/MM3 (4.0-11.0)
[2017-03-17 22:02] LABS: BICARBONATE 29.4 MEQ/L (21.0-32.0)
--- NOTE | 2017-03-17 22:03 | RADRPT ---
EXAM DATE/TIME: 03/17/2017 21:42 [facility] COMPARISON: No previous studies available for comparison. INDICATIONS : Left tibia pain with open sore MEDICAL HISTORY : Hypertension. Sleep apnea SURGICAL HISTORY : None. ENCOUNTER: Initial ACUITY: 1 month PAIN SCORE: 10/10 LOCATION: Left Tibia FINDINGS: Two view examination of the left tibia demonstrates no evidence of fracture or dislocation. Bony min eralization is normal. The soft tissue structures are intact. CONCLUSION: Intact left tibia and fibula. No radiopaque foreign body. Cruz Segura MD on March 17, 2017 at 22:01 Board Certified Radiologist. This report was verified electronically.
[2017-03-17 22:05] LABS: POTASSIUM 2.8 MEQ/L (3.5-5.1)
[2017-03-17] MEDS ORDERED: VANCOMYCIN INJ 1,000 MG in SODIUM CHLOR 0.9% 250 ML INJ 250 ML IV ONE (22:15)
[2017-03-17] MEDS ORDERED: POTASSIUM CHLORIDE 10 MEQ CONTROLLED RELEASE TAB PO ONE (22:15)
[2017-03-17 22:24] LABS: APTT (PATIENT) 24.9 SEC (24.3-30.1); INTERNATIONAL NORMALIZED RATIO 0.9 RATIO; PROTHROMBIN TIME - PATIENT 9.7 SEC (9.8-11.6)
[2017-03-17] MEDS ORDERED: SODIUM CHLORIDE 0.9% FLUSH 10 ML FLUSH IVF PRN (23:15)
[2017-03-18] VITALS (7 sets, daily range): BP systolic 161–187; BP diastolic 98–124; PULSE 59–82; RESP 17–20; TEMP 97–97.9; O2SAT 20–97
[2017-03-18] MEDS ORDERED: ONDANSETRON HCL 4 MG/2 ML VIAL IVP PRN (00:30)
[2017-03-18] MEDS ORDERED: Vancomycin Consult Pharmacy 1 EA OTHER SCH (00:30)
[2017-03-18] MEDS ORDERED: BISACODYL 10 MG SUPP RECTAL PRN (00:30)
[2017-03-18] MEDS ORDERED: SODIUM CHLORIDE 0.9% FLUSH 10 ML FLUSH IV FLUSH PRN (00:30)
[2017-03-18] MEDS ORDERED: NALOXONE HCL 0.4 MG/ML AMP IV PUSH PRN (00:30)
[2017-03-18] MEDS ORDERED: MAGNESIUM HYDROXIDE SUSP 30 ML CUP PO PRN (00:30)
[2017-03-18] MEDS ORDERED: MORPHINE SULFATE 4 MG/ML INJ IV PUSH PRN (00:30)
[2017-03-18] MEDS ORDERED: SENNOSIDES 8.6 MG TAB PO PRN (00:30)
[2017-03-18] MEDS: SODIUM CHLOR 0.45% 1000 ML INJ 1,000 ML IV SCH ×2 (00:37→13:37)
[2017-03-18] MEDS: MORPHINE SULFATE 4 MG/ML INJ IV PUSH PRN ×5 (00:45→21:28)
[2017-03-18] MEDS: cloNIDine HCL 0.1 MG TAB PO PRN ×4 (01:19→23:35)
[2017-03-18] MEDS: HEPARIN SODIUM - SQ 10,000 UNITS/ML VIAL SQ SCH ×2 (01:34→14:38)
[2017-03-18] MEDS: SODIUM CHLORIDE 0.9% FLUSH 10 ML FLUSH IV FLUSH SCH ×2 (08:33→20:39)
[2017-03-18] MEDS: POTASSIUM CHLOR 20 MEQ PREMIX 100 ML IV SCH ×2 (08:33→11:34)
[2017-03-18] MEDS ORDERED: hydrALAZINE HCL 20 MG/ML VIAL IV PUSH PRN (08:45)
[2017-03-18] MEDS ORDERED: SODIUM CHLORIDE 0.9% FLUSH 10 ML FLUSH IV FLUSH SCH (09:00)
--- NOTE | 2017-03-18 09:41 | MH ---
cc: YAMILEX LORENZO MD DATE OF ADMISSION 03/17/2017 DATE OF 01/05/1971 CHIEF COMPLAINT Left lower extremity wound with pain. TRAVEL IN THE LAST 30 DAYS None HISTORY OF PRESENT ILLNESS This is a pleasant 46-year-old obese black male who had been in his usual state of health up until approximately a month ago. 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 He gave no further details, but states that he has been putting some type of powder and cream on it. The wound now is approximately 4 cm x 5 cm with a crusted scab covering the wound partially. It is open to air. It has a foul smell and looks like it has had some type of drainage in the past. The wound was cultured in the emergency room and the patient also has renal failure and states that he is not on any type of dialysis or treatment. He does see his PCP at intervals, but has not had anyone look at this wound. The patient does have a low grade fever. His potassium level is 2.8. He is currently receiving p.o. and some IV potassium. Left tib-fib x-ray showed no acute fracture. The patient continues to have some uncontrolled hypertension, otherwise he denies any shortness of breath. No chest pain. No nausea, no vomiting. No recent weight gain or weight loss. He denies any dizziness. He has been working his job up until this point. The patient's heart rate is noted to be 59 at the low, 88 at the high. There is no family present. The patient states he has been taking Ibuprofen at home for pain and fever. MEDICAL HISTORY According to the patient and the record: 1. Hypertension 2. Headaches 3. The patient denies any sleep apnea. 4. Obesity 5. Possibly has been told he has some kidney problems in the Past. PAST SURGICAL HISTORY None listed. ALLERGIES No known allergies. MEDICATIONS 1. Norvasc 2. Hydralazine 3. 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 He does not use any tobacco. Alcohol is social and occasional maybe once a month. Liquor is the choice. FAMILY HISTORY Both parents are , but he is not sure they . He states his grandmother had a history of congestive heart failure. REVIEW OF SYSTEMS A 12-point review was obtained. Positives noted in the HPI which include a foul-smelling 4 cm x 5 cm wound from an accident at work approximately a month ago. The patient does have erratic heart rate between 59 and 88, low grade fever 99.4. Tib-fib x-ray shows no fracture. Other systems, if not listed, are negative or unremarkable. PHYSICAL EXAM VITAL SIGNS: Temperature is now 97.3, pulse 69, respirations 20, blood pressure 161/102 and 187/124, O2 sat 97 currently on room air. GENERAL: This is a well-nourished, well-developed obese black male resting in the bed. He is having no shortness of breath. No acute pain. He is awake and alert. SKIN: [place] mucous membranes warm and dry 4 cm x 5 cm foul-smelling wound noted at the left lower leg inner aspect above the ankle. HEENT: Atraumatic, normocephalic. GONZALO at 2. Mucous membranes are pink and moist. No scleral icterus. NECK: Supple. CARDIOVASCULAR: S1-S2. Rhythm appears regular. Heart count are distant. He has no lower extremity edema and his extremities are warm to touch. RESPIRATORY: Lungs are essentially clear anteriorly and posteriorly with no wheezes, rales or rhonchi. ABDOMEN: Obese, round, nontender and nondistended. Bowel sounds are active. MUSCULOSKELETAL: Moves his extremities with purpose. Has equal hand preparation room manager. No obvious deformities. NEUROLOGIC: He is awake, alert, answers questions with brief answers, but appropriately. Speech is clear. PSYCHIATRIC: Appropriate mood and affect. DIAGNOSTIC DATA Sodium 139 potassium 2.8, chloride 103, carbon dioxide 29.4, amnion gap 7, BUN 39, creatinine 3.44, GFR 23, random glucose 135. C-reactive protein 0.88, calcium 8.7, lactic acid 0.9. PT/INR 0.9. Hematology WBC count 6.1, RBC 4.22, hemoglobin 12.6, hematocrit 37, platelet count 293, monocyte count 10.4, eosinophils 4.1. IMAGING STUDIES Showed tib-fib x-ray to have intact last tibia and fibula without a foreign body present. ASSESSMENT/PLAN 1. Trauma open wound of left lower leg with infection. 2. Cellulitis of the left lower leg. 3. Hypertensive urgency uncontrolled. 4. Hypokalemia, severe. 5. Renal failure 6. Acute kidney injury with possible renal failure. 7. Hyperglycemia in the presence of non-diabetes. 8. Elevated C-reactive protein. 9. Anemia, mild. Our plan is to: 1. Admit 2. Pain management/wound care management team has been consulted. 3. The patient is admitted to inpatient status. 4. He was given Vancomycin in the emergency room and that will be continued. 5. The patient is going to receive 20 mEq of IV potassium every two hours times two doses and we will recheck his potassium at 2 o'clock this afternoon. 6. He has been placed on a renal diet, IV half normal currently Infusing at 75 cc/hr. We will go ahead and consult nephrology for their expert opinion. 7. The patient has a wound culture and blood cultures that are pending. 8. We will have his wound evaluated per the wound care team and depending on cultures or further needs, we will consider infectious disease involvement. 9. The patient will have labs drawn in the morning. 10. Heparin subcu for DVT prophylaxis. 11. We will also order IV Hydralazine. 12. The patient has p.o. clonidine for blood pressure control. We will go ahead and give him a dose of that now. The patient is full code, full aggressive care and we will continue to follow. Dictated by: DICK Gongora MD ARLEY Saldana/DANNY /8:47 AM /9:08 AM seen, examined by myself, Dr Lorenzo, today Discussed with patient and his mother. Painful ulcer with a 5 cm round eschar medial left ankle Consult podiatry, antibiotics, pain control Wound management nurse following Uncontrolled sleep apnea, agent refuses to wear the mask Morbid obesity Uncontrolled hypertension Acute kidney injury versus chronic kidney disease Nephrology consulted Follow renal function Blood pressure control Continue antibiotics Needs to lose weight emergently Needs to wear C Pap He was informed of his shortened life expectancy with his uncontrolled sleep apnea He verbalized understanding, does not seem interested in having that treated Discussed with mid level provider The exam, history, and the medical decision-making described in the above note were completed with the assistance of the mid-level provider. I reviewed the findings presented. I attest that I had a [id number] encounter with the patient on the same day, and personally performed and documented my assessment and findings in the medical record. HERMINIA
[2017-03-18] MEDS ORDERED: VANCOMYCIN 1,000 MG/NS 250 ML IV ONE ×2 (10:00)
[2017-03-18 13:09] LABS: BICARBONATE 28.9 MEQ/L (21.0-32.0); POTASSIUM 3.2 MEQ/L (3.5-5.1)
[2017-03-18] MEDS: hydrALAZINE HCL 50 MG TAB PO SCH ×2 (14:39→20:34)
--- NOTE | 2017-03-18 15:09 | PD.WCN.NOT ---
Wound Consult Description: Received consult from Lyndsay JENNINGS for wound management of LLL Communicated with: KYLAH Woo and Doctor Varghese Recommendation: Consult podiatry for possible debridement of LLE wound. Please paint wound to L medial aspect of lower leg with povidone-iodine BID and , if draining cover with dry 4x4 gauze pads and secure with rolled gauze and tape. if not draining leave open to air. Until seen by podiatry for debridement. Additional Information: Patient seen on for evaluation of LLL wound management. Doctor Varghese in room during wound assessment. Wound noted to Medial aspect of L lower leg presents with 100% coverage of unstable eschar. Periwound presents with erythema that is circumferential and extends out ~2cm from periwound. Wound is noted with scant brown drainage that has a foul odor Eschar is slightly fluctuant. Cleansed wound with normal saline and pat dry. Wound measures 4.9cm x 4cm x eschar. RN to paint wound with povidone-iodine and cover dry cover or leave open to air if not draining, until seen by podiatry for debridement. Renea Fontaine [facility] Mar 18, 2017 15:09
--- NOTE | 2017-03-18 17:01 | PD.CONS ---
HPI Service Nephrology Consult Requested By Reason for Consult Acute on CKD Primary Care Physician Dajuan Rai III, MD History of Present Illness This is a morbidly obese 46 y/o AAM who came in for left leg wound,he is unsure of how it occurred but did not improve. There is an odor. PMH of obesity and HTN. He most likely has CKD as his renal function has been abnormal, baseline creatinine 2.2-2.6. GFR in the 30s prior admission. His creatinine was 3.4 yesterday, is 2.98 today. He is on IVF, appears edematous, but is not in respiratory distress. He admits to taking up to 10 Aleve per day at home for pain. We were consulted for renal management. (Tashia Suazo) Review of Systems Constitutional: COMPLAINS OF: Fatigue (Tashia Suazo) Past Family Social History Allergies: Coded Allergies: No Known Allergies (Verified , 03/17/17) Uncoded Allergies: nka (Allergy, Unknown, 02/26/03) Past Medical History Obesity HTN suspected BRYAN Past Surgical History None Reported Medications Norvasc hydralazine amlodipine Active Ordered Medications Current Medications Medications (Trade) Dose Ordered Sig/Stan Route Start Time Stop Time Status Last Admin Sodium Chloride 1,000 ml @ 75 mls/hr [id number] IV 03/18/17 00:17 03/18/17 00:37 (NS Flush) 2 ml UNSCH PRN IV FLUSH 03/18/17 00:30 (NS Flush) 2 ml BID IV FLUSH 03/18/17 09:00 (Tylenol) 650 mg Q4H PRN PO 03/18/17 00:30 (Zofran Inj) 4 mg Q6H PRN IVP 03/18/17 00:30 (Heparin Inj) 5,000 units Q12H SQ 03/18/17 02:00 03/18/17 14:38 (Morphine Inj) 2 mg Q3H PRN IV PUSH 03/18/17 00:30 (Morphine Inj) 4 mg Q3H PRN IV PUSH 03/18/17 00:30 03/18/17 14:43 (Narcan Inj) 0.4 mg UNSCH PRN IV PUSH 03/18/17 00:30 (Milk Of Magnesia Liq) 30 ml Q12H PRN PO 03/18/17 00:30 (Senokot) 17.2 mg Q12H PRN PO 03/18/17 00:30 (Dulcolax Supp) 10 mg DAILY PRN RECTAL 03/18/17 00:30 (Lactulose Liq) 30 ml DAILY PRN PO 03/18/17 00:30 (Catapres) 0.1 mg Q6H PRN PO 03/18/17 00:30 03/18/17 08:32 Pharmacy Profile Note 0 ml @ 0 mls/hr UNSCH OTHER 03/18/17 00:30 (Apresoline) 50 mg Q8HR PRN PO 03/18/17 11:30 (Apresoline) 50 mg Q8HR PO 03/18/17 14:00 03/18/17 14:39 Family History His mother from diabetes Social History 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 (Tashia Suazo) Physical Exam Vital Signs Vital Signs Date Time Temp Pulse Resp B/P (MAP) Pulse Ox O2 Delivery O2 Flow Rate FiO2 03/18/17 12:00 97.0 66 20 177/98 (124) 96 03/18/17 08:00 97.3 69 20 187/124 (145) 97 03/18/17 02:29 59 20 161/102 (121) 97 03/18/17 00:39 82 18 97 Room Air 03/18/17 00:00 97.9 70 20 184/112 (136) 91 03/17/17 21:01 70 188/93 (124) 98 Room Air 03/17/17 20:51 67 20 219/119 (152) 95 Room Air 03/17/17 17:49 99.4 88 22 201/123 (149) 96 Room Air Physical Exam Obese AAM patient, he is sleeping oriented x 3 lungs clear abdomen round, firm, non tender trace edema in extremities; left lower leg has wound that appears to be an indentation with irregular border; foul odor Laboratory Laboratory Tests Test 03/17/17 21:03 03/17/17 21:13 03/17/17 21:33 03/17/17 21:44 White Blood Count 6.1 Red Blood Count 4.22 Hemoglobin 12.6 Hematocrit 37.0 Mean Corpuscular Volume 87.8 Mean Corpuscular Hemoglobin 29.9 Mean Corpuscular Hemoglobin Concent 34.1 Red Cell Distribution Width 14.3 Platelet Count 293 Mean Platelet Volume 7.9 Neutrophils (%) (Auto) 60.5 Lymphocytes (%) (Auto) 24.3 Monocytes (%) (Auto) 10.4 Eosinophils (%) (Auto) 4.1 Basophils (%) (Auto) 0.7 Neutrophils # (Auto) 3.7 Lymphocytes # (Auto) 1.5 Monocytes # (Auto) 0.6 Eosinophils # (Auto) 0.3 Basophils # (Auto) 0.0 CBC Comment DIFF FINAL Differential Comment Blood Urea Nitrogen 39 Creatinine 3.44 Random Glucose 135 Calcium Level 8.7 Sodium Level 139 Potassium Level 2.8 Chloride Level 103 Carbon Dioxide Level 29.4 Anion Gap 7 Estimat Glomerular Filtration Rate 23 C-Reactive Protein 0.88 Lactic Acid Level 0.9 Prothrombin Time 9.7 Prothromb Time International Ratio 0.9 Activated Partial Thromboplast Time 24.9 Test 03/18/17 12:33 Blood Urea Nitrogen 35 Creatinine 2.98 Random Glucose 124 Calcium Level 8.4 Sodium Level 140 Potassium Level 3.2 Chloride Level 105 Carbon Dioxide Level 28.9 Anion Gap 6 Estimat Glomerular Filtration Rate 27 Date/Time Source Procedure Growth Status 03/17/17 21:47 Blood Peripheral Aerobic Blood Culture - Preliminary NO GROWTH IN 1 DAY Resulted 03/17/17 21:47 Blood Peripheral Anaerobic Blood Culture - Preliminary NO GROWTH IN 1 DAY Resulted 03/17/17 21:13 Wound Leg Gram Stain - Final Resulted 03/17/17 21:13 Wound Culture - Preliminary Gram Negative Gerber Gram Positive Cocci Resulted (Tashia Suazo) Result Diagram: 03/17/17210203/18/17 123 Imaging Last Impressions Tibia/Fibula X-Ray 03/17/172120 Signed Impressions: Service Date/Time: February 21:42 - CONCLUSION: Intact left tibia and fibula. No radiopaque foreign body. Cruz Segura MD (Tashia Suazo) Assessment and Plan Problem List: (1) Renal insufficiency ICD Codes: N28.9 - Disorder of kidney and ureter, unspecified Status: Acute Plan: He has renal impairment at baseline , baseline creatinine 2.2-2.7 he admits to taking up to 10 Aleve per day at home; also has uncontrolled hypertension which may contribute to CKD NASH may be due to infection replace K as below check UA check renal US avoid NSAIDs, he was given Toradol this admission (2) Wound infection ICD Codes: T14.8 - Other injury of unspecified body region; L08.9 - Local infection of the skin and subcutaneous tissue, unspecified Status: Acute Plan: wound care has been ordered (3) Hypokalemia ICD Codes: E87.6 - Hypokalemia; N18.9 - Chronic kidney disease, unspecified Status: Acute Plan: continue to replace as needed (Tashia Suazo) Problem List: (1) Renal insufficiency ICD Codes: N28.9 - Disorder of kidney and ureter, unspecified Status: Acute Plan: He has renal impairment at baseline , baseline creatinine 2.2-2.7 he admits to taking up to 10 Aleve per day at home; also has uncontrolled hypertension which may contribute to CKD NASH may be due to infection replace K as below check UA check renal US avoid NSAIDs, he was given Toradol this admission (2) Wound infection ICD Codes: T14.8 - Other injury of unspecified body region; L08.9 - Local infection of the skin and subcutaneous tissue, unspecified Status: Acute Plan: wound care has been ordered (3) Hypokalemia ICD Codes: E87.6 - Hypokalemia; N18.9 - Chronic kidney disease, unspecified Status: Acute Plan: continue to replace as needed Assessment and Plan patient was seen and examined. Appears to have stage IV CKD. Could be due to hypertensive nephrosclerosis. May have component of NASH due to use of NSAIDs, as well as infection. Obtain UA. He did have minimal proteinuria found in the UA when obtained in August. BP is poorly controlled, mainly due to non compliance, use of NSAIDs, obesity, and untreated BRYAN. He also has hypokalemia. Plan: Obtain UA and proteinuria quantification. Avoid NSAIDs and other nephrotoxic agents. Obtain Aldosterone/PRA ratio Consider use of Spironolactone: may be useful in obese patients who can have aldosterone production in fatty tissue. Needs treatment of BRYAN: there will be about 3% decrease in BP with successful management of BRYAN with CPAP. Needs weight loss. Encourage compliance. Treatment of wound infection. (Kurt Chiang MD) Tashia Suazo Mar 18, 2017 17:01 Kurt Chiang MD Mar 19, 2017 07:18
--- NOTE | 2017-03-18 18:39 | MB ---
cc: STACEY ESCOTO DPM DATE OF CONSULTATION: 03/18/2017. REASON FOR CONSULTATION: Left ankle wound. HISTORY OF PRESENT ILLNESS: The patient is a 46-year-old male with a chronic wound to the left medial ankle. He states that he injured his foot while working. He did some home treatment by himself. He has not followed up in a formal setting for care. PAST MEDICAL HISTORY: 1. Hypertension. 2. Obesity. PAST SURGICAL HISTORY: Denies. ALLERGIES: NO KNOWN DRUG ALLERGIES. MEDICATIONS: 1. Norvasc. 2. Hydralazine. . SOCIAL HISTORY: . Occasional social alcohol. Denies illicit drugs. FAMILY HISTORY: Noncontributory. REVIEW OF SYSTEMS: A six point review of systems is unremarkable. PHYSICAL EXAMINATION: Lower extremity medial ankle with a 4 x 5 cm necrotic type tissue with eschar and malodor. No active drainage, edema, no erythema, no purulence. He has protective sensation grossly intact. Muscle strength intact. No calf pain LABORATORY DATA: WBCs on 03/17/2017 of 6.1, RBCs of 4.22 and hemoglobin and hematocrit of 12.6 and 37.0. IMAGING STUDIES: Left leg x-rays completed 03/17/2017 with no foreign bodies, no cortical irregularities. ASSESSMENT: Left leg wound. PLAN: 1. Blood flow studies. 2. The patient will need an MRI on the left leg with and without contrast prior to the operating room. However he will need to be medically optimized for his MRI with contrast. Will defer to the medicine team based on his renal or kidney injuries prior to evaluating the MRI. Possibly plan for surgery on 03/20/2017 once the MRI is completed. 3. Continue with local wound care per wound care. Stacey Escoto DPM SR/AMILCAR /5:27 PM /6:26 PM HERMINIA
--- NOTE | 2017-03-18 19:56 | RADRPT ---
EXAM DATE/TIME: 03/18/2017 18:30 [facility] COMPARISON: US KIDNEY/RENAL/BLADDER, August 25, 2016, 23:33. INDICATIONS : Increased BUN/Creatnine. MEDICAL HISTORY : Hypertension. Blurred vision. Headache. Cardiac disorders. Sleep apnea. SURGICAL HISTORY : Abdominal aortic aneurysm repair. ENCOUNTER: Initial ACUITY: 1 day PAIN SCORE: 0/10 LOCATION: Bilateral flank MEASUREMENTS: RIGHT KIDNEY: 11.6 x 4.3 x 6.1 cm LEFT KIDNEY: 11.0 x 3.5 x 5.8 cm FINDINGS: RIGHT KIDNEY: Renal cortex is normal in thickness and echotexture. No hydronephrosis, stone, or mass. LEFT KIDNEY: Renal cortex is normal in thickness and echotexture. No hydronephrosis, stone, or mass. BLADDER: Within normal limits given the degree of distension. CONCLUSION: Ultrasound appearance of the kidneys and urinary bladder within normal limits. Cruz Segura MD on March 18, 2017 at 19:54 Board Certified Radiologist. This report was verified electronically.
[2017-03-18 23:56] LABS: BLOOD, URINE NEG (NEG); COMMENT (UR) CULT NOT INDICATED; CULTURE IF INDICATED CULT NOT INDICATED; GLUCOSE,URINE NEG (NEG); HYALINE CAST, URINE 3 /lpf (RARE); KETONE, URINE NEG (NEG); MUCUS URINE FEW /lpf (OCC); NITRITE,URINE NEG (NEG); SQUAMOUS EPITHELIAL CELL URINE <1 /hpf (0-5); URINE COLOR YELLOW (YELLW/STRAW)
[2017-03-19] VITALS: BP 170/104; PULSE 67; RESP 20; TEMP 98.2; O2SAT 96
[2017-03-19] MEDS: HEPARIN SODIUM - SQ 10,000 UNITS/ML VIAL SQ SCH ×2 (03:10→12:10)
[2017-03-19 04:00] VITALS: BP 143/69; PULSE 68; RESP 20; TEMP 98; O2SAT 94
[2017-03-19] MEDS: hydrALAZINE HCL 50 MG TAB PO SCH ×3 (04:03→22:06)
[2017-03-19] MEDS: MORPHINE SULFATE 4 MG/ML INJ IV PUSH PRN ×5 (05:57→20:28)
[2017-03-19 07:11] LABS: BICARBONATE 26.7 MEQ/L (21.0-32.0); POTASSIUM 3.3 MEQ/L (3.5-5.1)
[2017-03-19 07:13] LABS: AUTOMATED NEUTROPHIL # 4.1 TH/MM3 (1.8-7.7); BASOPHIL # 0.1 TH/MM3 (0-0.2); BASOPHIL % 0.9 % (0.0-2.0); EOSINOPHIL # 0.3 TH/MM3 (0-0.4); EOSINOPHIL % 5.6 % (0.0-4.0); LYMPH % 19.3 % (9.0-44.0); LYMPHOCYTE # 1.2 TH/MM3 (1.0-4.8); MEAN CELL VOLUME 88.5 FL (80.0-100.0); MEAN CORPUSCULAR HEMOGLOBIN 30.4 PG (27.0-34.0); MEAN CORPUSCULAR HGB CONC 34.3 % (32.0-36.0); NEUT % 65.2 % (16.0-70.0); PLATELET COUNT 247 TH/MM3 (150-450); RED BLOOD COUNT 3.95 MIL/MM3 (4.50-5.90); RED CELL DISTRIBUTION WIDTH 14.5 % (11.6-17.2); WHITE BLOOD COUNT 6.2 TH/MM3 (4.0-11.0)
[2017-03-19 07:14] LABS: HEMO FLAGS AUTO DIFF
[2017-03-19 08:00] VITALS: BP_SYST 160; BP_SYST 181; BP_DIAS 85; BP_DIAS 87; PULSE 74; RESP 22; TEMP 97.3; O2SAT 94
--- NOTE | 2017-03-19 08:16 | HHI.PR ---
Subjective Remarks Resting in the bed Complaints of left lower leg pain around the wound especially when getting up Appetite good eating 100% Head bed elevated 80, denies any shortness of breath (Lyndsay Mora) Objective Objective Results - Vital Signs Date Time Temp Pulse Resp B/P (MAP) Pulse Ox O2 Delivery O2 Flow Rate FiO2 03/19/17 04:00 98.0 68 20 143/69 (93) 94 03/19/17 00:00 98.2 67 20 170/104 (126) 96 03/18/17 20:00 97.1 68 17 178/98 (124) 97 03/18/17 16:00 97.5 73 20 186/120 (142) 20 03/18/17 12:00 97.0 66 20 177/98 (124) 96 I/O 03/18/17 03/18/17 03/18/17 03/19/17 03/19/17 03/19/17 07:00 15:00 23:00 07:00 15:00 23:00 Intake Total 250 ml 200 ml 620 ml 554 ml Output Total 500 ml 650 ml 950 ml Balance -250 ml 200 ml -30 ml -396 ml Intake Oral 620 ml IV Total 250 ml 200 ml 554 ml Output Urine Total 500 ml 650 ml 950 ml # Voids 1 # Bowel Movements 0 (Lyndsay Mora) Result Diagram: 03/19/17 0555 03/19/17 0555 ROS General: Fatigue, Weakness, Other (10 point ROS done positives noted) Pulmonary: Cough (occasional) GI: Other (no BM since admission yet) Skin: Other (left lower extremity wound open to air) (Lyndsay Mora) Physical Exam Physical Exam PHYSICAL EXAMINATION GENERAL: This is a morbidly obese male who appears to be in no acute distress. He is alert and awake, HEAD: Normocephalic , Facial features appear symmetric. OROPHARYNGEAL: Oropharynx without erythema or edema. NECK: Supple. No nuchal rigidity or lymphadenopathy. Trachea midline without deviation. CARDIAC: Regular rhythm, regular rate, S1 and S2 are heard. LUNGS: Mild diminished to auscultation bilaterally. Medium volumes ,No use of accessory muscles on inspiration or expiration. ABDOMEN: Soft, nontender, no organomegaly or masses. Bowel sounds are heard in all four quadrants. No rebound. No guarding. EXTREMITIES: Mild lower extremity edema. Pulses equal bilateral. NEUROLOGICAL: Patient mood and affect appropriate. No focal deficit SKIN:Warm and moist, lower extremity wound, open to air, crusted scab covering 75% of wound, (Lyndsay Mora) A/P Assessment and Plan 1. Trauma open wound of left lower leg with infection. Antibiotic therapy, podiatry consult and appreciate input, patient possibly may need MRI of left lower leg and surgical debridement. Ultrasound lower extremities this a.m. cultures pending Wound culture showing gram-negative rods, gram-positive cocci, will go ahead and get ID involved 2. Cellulitis of the left lower leg. No acute changes since admission, will continue antibiotic therapy, podiatry consult, dressings and wound care if needed, wound appears to be down to the subcutaneous level 3. Hypertensive urgency uncontrolled. Medical management with blood pressure meds, could be contributing to his kidney disease, BP stable at 143/69 4. Hypokalemia, severe., KCl given and monitoring labs, lab 3.3 today, 40 mEq potassium given. Recheck BMP in the morning 5. Renal failure Appreciate nephrology consult and plan a care, patient has renal impairment at the baseline, renal ultrasound no acute findings, avoid NSAIDs Up with any nephrotoxic agents, checking aldosterone PRA ratio, will consider spironolactone, encourage for compliance and weight loss 6. Anemia, probable secondary to chronic disease and chronic kidney disease. Continue to monitor labs Discussed with patient, no family present Discussed with nurse Discussed with Dr. begum, seen on his behalf (Lyndsay Mora) Assessment and Plan Patient seen and examined Chart reviewed Discussed patient Discussed with Lyndsay Agree with above Podiatry input appreciated Left lower extremity ulcer Bounding left dorsalis pedis pulse Will follow (Gee Begum MD) Lyndsay Mora Mar 19, 2017 08:16 Gee Begum MD Mar 19, 2017 16:23
[2017-03-19] MEDS: cloNIDine HCL 0.1 MG TAB PO PRN ×2 (08:53→23:43)
[2017-03-19] MEDS: SODIUM CHLORIDE 0.9% FLUSH 10 ML FLUSH IV FLUSH SCH ×2 (08:54→21:00)
[2017-03-19 09:14] LABS: SCAN/DIFF AUTO DIFF CONFIRMED
[2017-03-19] MEDS ORDERED: POTASSIUM CHLORIDE 10 MEQ CONTROLLED RELEASE TAB PO ONE (10:30)
--- NOTE | 2017-03-19 11:58 | RADRPT ---
EXAM DATE/TIME: 03/18/2017 00:00 [facility] COMPARISON: No previous studies available for comparison. INDICATIONS : Left ankle wound TECHNIQUE: Five-station segmental examination of the lower extremities was performed. Pulsed-cuff waveform tracings and pressures were recorded. Ankle-brachial indices and toe-brachial indices were calculated. PRESSURES (mmHg): Brachial (arm): Right 115 Lower Thigh: Right CNO Left CNO Calf: Right 172 Left 172 Ankle: Right 165 Toe: Right 179 Left 160 CURT: Right 1.43 Left TBI: Right 1.56 Left 1.39 PULSED CUFF WAVEFORMS: Demonstrate normal amplitude bilaterally. CONCLUSION: Unremarkable segmental evaluation of the lower extremities. Surendra Aparicio MD on March 19, 2017 at 11:56 Board Certified Radiologist. This report was verified electronically.
[2017-03-19 12:00] VITALS: BP 179/98; PULSE 65; RESP 22; TEMP 97.6; O2SAT 93
[2017-03-19] MEDS ORDERED: VANCOMYCIN INJ 2,000 MG in SODIUM CHLORID 0.9% 500 ML INJ 500 ML IV ONE (14:00)
--- NOTE | 2017-03-19 14:34 | PD.POD ---
Subjective Podiatric Problems CC:left leg ulcer. Pain scale used: 0-10 numeric scale Pain score: 5 Past Med/Surg/Social History Social History Smoking Status: Unknown If Ever Smoked Objective Vital Signs Vital Signs Date Time Temp Pulse Resp B/P (MAP) Pulse Ox O2 Delivery O2 Flow Rate FiO2 03/19/17 12:00 97.6 65 22 179/98 (125) 93 03/19/17 10:00 21 03/19/17 08:00 97.3 74 22 181/87 (118) 94 160/85 (110) 03/19/17 04:00 98.0 68 20 143/69 (93) 94 03/19/17 00:00 98.2 67 20 170/104 (126) 96 03/18/17 20:00 97.1 68 17 178/98 (124) 97 03/18/17 16:00 97.5 73 20 186/120 (142) 20 Coded Allergies: No Known Allergies (Verified , 03/17/17) Uncoded Allergies: nka (Allergy, Unknown, 02/26/03) Other Results Last Impressions Renal Ultrasound 03/18/17 0000 Signed Impressions: Service Date/Time: Saturday, March 18, 2017 18:30 - CONCLUSION: Ultrasound appearance of the kidneys and urinary bladder within normal limits. Cruz Segura MD Tibia/Fibula X-Ray 03/17/172120 Signed Impressions: Service Date/Time: February 21:42 - CONCLUSION: Intact left tibia and fibula. No radiopaque foreign body. Cruz Segura MD Laboratory Tests Test 03/17/17 21:13 03/17/17 21:33 03/17/17 21:44 03/18/17 23:35 C-Reactive Protein 0.88 MG/DL Lactic Acid Level 0.9 mmol/L Prothrombin Time 9.7 SEC Prothromb Time International Ratio 0.9 RATIO Activated Partial Thromboplast Time 24.9 SEC Urine Color YELLOW Urine Turbidity CLEAR Urine pH 6.0 Urine Specific [place] 1.019 Urine Protein 300 mg/dL Urine Glucose (UA) NEG mg/dL Urine Ketones NEG mg/dL Urine Occult Blood NEG Urine Nitrite NEG Urine Bilirubin NEG Urine Urobilinogen LESS THAN 2.0 MG/DL Urine Leukocyte Esterase NEG Urine RBC 1 /hpf Urine WBC 2 /hpf Urine Squamous Epithelial Cells <1 /hpf Urine Hyaline Casts 3 /lpf Urine Mucus FEW /lpf Microscopic Urinalysis Comment CULT NOT INDICATED Test 03/19/17 05:55 03/19/17 11:00 White Blood Count 6.2 TH/MM3 Red Blood Count 3.95 MIL/MM3 Hemoglobin 12.0 GM/DL Hematocrit 35.0 % Mean Corpuscular Volume 88.5 FL Mean Corpuscular Hemoglobin 30.4 PG Mean Corpuscular Hemoglobin Concent 34.3 % Red Cell Distribution Width 14.5 % Platelet Count 247 TH/MM3 Mean Platelet Volume 8.2 FL Neutrophils (%) (Auto) 65.2 % Lymphocytes (%) (Auto) 19.3 % Monocytes (%) (Auto) 9.0 % Eosinophils (%) (Auto) 5.6 % Basophils (%) (Auto) 0.9 % Neutrophils # (Auto) 4.1 TH/MM3 Lymphocytes # (Auto) 1.2 TH/MM3 Monocytes # (Auto) 0.6 TH/MM3 Eosinophils # (Auto) 0.3 TH/MM3 Basophils # (Auto) 0.1 TH/MM3 CBC Comment AUTO DIFF Differential Comment AUTO DIFF CONFIRMED Blood Urea Nitrogen 35 MG/DL Creatinine 2.83 MG/DL Random Glucose 99 MG/DL Calcium Level 8.4 MG/DL Sodium Level 137 MEQ/L Potassium Level 3.3 MEQ/L Chloride Level 104 MEQ/L Carbon Dioxide Level 26.7 MEQ/L Anion Gap 6 MEQ/L Estimat Glomerular Filtration Rate 29 ML/MIN Random Vancomycin Level 13.0 COMMENT Total Protein 7.0 GM/DL Complement C3 112 MG/DL Complement C4 36 MG/DL Exam-Podiatry Dermatological Exam Ulcers: Location/Measurements Left LE Medial ankle with ulcer, necrotic tissue, + POP. NVS intact Assessment & Plan Diagnosis: (1) Cellulitis of left foot ICD Codes: L03.116 - Cellulitis of left lower limb Status: Acute (2) Wound infection ICD Codes: T14.8 - Other injury of unspecified body region; L08.9 - Local infection of the skin and subcutaneous tissue, unspecified Status: Acute A/P Plan for the OR on 03/19/17 Medical Clearance NPO at midnight Consent for 1) Left leg incision and drainage OR on 03/20/17 at 0900 Blood Flow wnl Pending MRI left leg, w/o, no contrast per Nephrology.. Ramdamissy,Stacey DPM Mar 19, 2017 14:34
--- NOTE | 2017-03-19 15:31 | HHI.NPPN ---
Subjective Additional Remarks No acute complaints, for I&D tomorrow. Objective Data Data Vital Signs Date Time Temp Pulse Resp B/P (MAP) Pulse Ox O2 Delivery O2 Flow Rate FiO2 03/19/17 12:00 97.6 65 22 179/98 (125) 93 03/19/17 10:00 21 03/19/17 08:00 97.3 74 22 181/87 (118) 94 160/85 (110) 03/19/17 04:00 98.0 68 20 143/69 (93) 94 03/19/17 00:00 98.2 67 20 170/104 (126) 96 03/18/17 20:00 97.1 68 17 178/98 (124) 97 03/18/17 16:00 97.5 73 20 186/120 (142) 20 -: 03/19/17 0555 03/19/17 0555 Physical Exam General Appearance: Well Developed, Well Nourished, No Acute Distress Throat Throat Exam: Oral Mucosa [place] & Moist Neck Neck Exam: Neck Supple Pulmonary Resp Exam: Clear Bilaterally, Decreased Bases Cardiology CV Exam: Regular, Normal Sinus Rhythm Gastrointestinal/Abdomen GI Exam: Soft, Non-Tender, Bowel Sounds Present Musculoskeletal MS Exam: Joints Intact Integumentary Skin Exam: Dry Extremeties Extremities Exam: No Edema Neurologic Neuro Exam: Alert, Awake, Oriented, Speech Clear Psychiatric Psych Exam: Appropriate Responses Assessment/Plan Problem List: (1) Renal insufficiency ICD Codes: N28.9 - Disorder of kidney and ureter, unspecified Status: Acute Plan: He has renal impairment at baseline , baseline creatinine 2.2-2.7: Appears to have stage IV CKD. Could be due to hypertensive nephrosclerosis. May have component of NASH due to use of NSAIDs, as well as infection. Creatinine stable today, continue to monitor. UA with 300 protein - will check spot protein/creatinine, A1C level. Renal USX wnl. Hypokalmia - Aldosterone/PRA ratio pending. Will start spironolactone: may be useful in obese patients who can have aldosterone production in fatty tissue. Needs treatment of BRYAN as outpatient: there will be about 3% decrease in BP with successful management of BRYAN with CPAP. Needs weight loss. Encourage compliance. Treatment of wound infection. he admits to taking up to 10 Aleve per day at home; also has uncontrolled hypertension which may contribute to CKD Replace K as needed Avoid NSAIDs, he was given Toradol this admission (2) Wound infection ICD Codes: T14.8 - Other injury of unspecified body region; L08.9 - Local infection of the skin and subcutaneous tissue, unspecified Status: Acute Plan: wound care has been ordered - I&D with podiatry tomorrow. (3) Hypokalemia ICD Codes: E87.6 - Hypokalemia; N18.9 - Chronic kidney disease, unspecified Status: Acute Plan: continue to replace as needed - KCl given today will start spironolactone (4) HTN (hypertension) ICD Codes: I10 - Essential (primary) hypertension Status: Chronic Plan: BP is poorly controlled, mainly due to non compliance, use of NSAIDs, obesity, and untreated BRYAN. Will add spironolactone. Given hypokalemia, CKD, proteinuria - consider NAKIA-I as renal function, K further stabilize Problem Qualifiers (1) HTN (hypertension): Qualified Codes: I10 - Essential (primary) hypertension Dionicio Booker MD Mar 19, 2017 15:31
[2017-03-19 16:00] VITALS: BP 138/109; PULSE 71; RESP 20; TEMP 97.1; O2SAT 96
--- NOTE | 2017-03-19 16:33 | RADRPT ---
EXAM DATE/TIME: 03/19/2017 15:45 [facility] COMPARISON: TIBIA/FIBULA LEFT (AP/LAT), March 17, 2017, 21:42. INDICATIONS : Abscess. Left lower leg wound. MEDICAL HISTORY : Hypertension. Fatigue. SURGICAL HISTORY : Abdominal aortic aneurysm repair. ENCOUNTER: Initial ACUITY: 2 day PAIN SCORE: 0/10 LOCATION: Left lower leg. TECHNIQUE: Multiplanar multisequence MRI examination of the lower leg was performed without contrast. FINDINGS: The examination was performed without intravenous contrast due to a depressed GFR of 27. Absence of contrast will decrease sensitivity for soft tissue abnormalities. There area of concern was in the m id and distal calf and axial images were performed from the proximal one third shaft of the tibia to the distal metaphysis of the tibia. A marker was placed over the area of concern in the distal poste rior medial leg. There is swelling of the subcutaneous tissues of the distal one third of the leg more prominent poste riorly than anteriorly and there is some thin fluid tracking at the fat/muscle interface on the media l side measuring up to 4 mm in thickness. There is also edema within the muscle of the anterior and posterior groups. No discrete or drainable fluid collections seen. The overall thickness of the sub cutaneous tissues measures 8 mm or less. There is thickening of the cortex of the midshaft of the tibia and some mild endosteal cortical thick ening posterior in the midshaft. No focal areas of T2 prolongation seen within the marrow of the casi ged portion of the tibia and fibula. CONCLUSION: Subcutaneous edema about the leg, more prominent medially than laterally and some edema within the an terior and posterior muscle groups. No drainable fluid collections seen. No signal abnormalities wi thin the marrow of the osseous structures to suggest osteomyelitis. Lawrence Raya MD on March 19, 2017 at 16:25 Board Certified Radiologist. This report was verified electronically.
--- NOTE | 2017-03-19 17:16 | PD.ID.CON ---
History of Present Illness Service ID Consult Requested By Dr Esteban Reason for Consult L ankle infecton Primary Care Physician Dajuan Rai III, MD Diagnoses: History of Present Illness 46 yo morbidly obse non diabetic male ijured his anklle about 1 month ago and developped non healing wound over medial L ankle He did not seek any medical attention until his current presentation He denies fever, chills and other wild no c/o He endorses chronic b/l LE edema, which gets worse as the day goes Dennies h/o DM, denies tobacco Wound clx with E.coli and a GNB yet to b ID'd Denies renal problems, but found to have creatinine of 2.98 Pt is afebrile and has no leukocytosis Review of Systems Constitutional: COMPLAINS OF: Weight gain Cardiovascular: COMPLAINS OF: Lower Extremity Edema Except as stated in HPI: all other systems reviewed are Neg Past Family Social History Allergies: Coded Allergies: No Known Allergies (Verified , 03/17/17) Uncoded Allergies: nka (Allergy, Unknown, 02/26/03) Past Medical History HTN Past Surgical History AAA repair i 2007 Active Ordered Medications Medications where reviewed in EMR Antibiotics Include: vancomycin Family History diabetes Social History No Tobacco. occ ETOH. No Illicit Drugs. Physical Exam Vital Signs Vital Signs Date Time Temp Pulse Resp B/P (MAP) Pulse Ox O2 Delivery O2 Flow Rate FiO2 03/19/17 16:00 97.1 71 20 138/109 (119) 96 03/19/17 12:00 97.6 65 22 179/98 (125) 93 03/19/17 10:00 21 03/19/17 08:00 97.3 74 22 181/87 (118) 94 160/85 (110) 03/19/17 04:00 98.0 68 20 143/69 (93) 94 03/19/17 00:00 98.2 67 20 170/104 (126) 96 03/18/17 20:00 97.1 68 17 178/98 (124) 97 Physical Exam CONSTITUTIONAL/GENERAL: This is a morbidly obese patient, in no apparent distress. TUBES/LINES/DRAINS: SKIN: No jaundice, rashes, or lesions Skin temperature appropriate. Not diaphoretic. HEAD: Atraumatic. Normocephalic. EYES: Pupils equal and round and reactive. Extraocular motions intact. No scleral icterus. No injection or drainage. Fundi not examined. ENT: Hearing grossly normal. Nose without bleeding or purulent drainage. Throat without visible erythema, exudates, masses, or lesions. NECK: Trachea midline. Supple, nontender. No palpable thyroid enlargement or nodularity. CARDIOVASCULAR: Regular rate and rhythm without murmurs, gallops, or rubs. No JVD. Peripheral pulses symmetric. RESPIRATORY/CHEST: Symmetric, unlabored respirations. Clear to auscultation. Breath sounds equal bilaterally. No wheezes, rales, or rhonchi. GASTROINTESTINAL: Abdomen soft, non-tender, nondistended. No hepato-splenomegaly , or palpable masses. No guarding. Bowel sounds present. MUSCULOSKELETAL: Extremities without clubbing, cyanosis, + 1 BLE edema, tight + chronic BLE hyperpigmentation Excellent b/l pedal pulses L medial mallelous ulcer about 5 cm in diameter covered by black escha and draining doul smelling serous drainage LYMPHATICS: No palpable inguinal or supraclavicular adenopathy. NEUROLOGICAL: Awake and alert. Motor and sensory grossly within normal limits. Follows commands. Clear speech. Moves all extremities. PSYCHIATRIC: No obvious anxiety/depression. no apparent hallucinations or other psychotic thought process. Laboratory Laboratory Tests Test 03/18/17 21:57 03/18/17 23:35 03/19/17 05:55 03/19/17 11:00 Potassium Level 3.4 3.3 Urine Color YELLOW Urine Turbidity CLEAR Urine pH 6.0 Urine Specific [place] 1.019 Urine Protein 300 Urine Glucose (UA) NEG Urine Ketones NEG Urine Occult Blood NEG Urine Nitrite NEG Urine Bilirubin NEG Urine Urobilinogen LESS THAN 2.0 Urine Leukocyte Esterase NEG Urine RBC 1 Urine WBC 2 Urine Squamous Epithelial Cells <1 Urine Hyaline Casts 3 Urine Mucus FEW Microscopic Urinalysis Comment CULT NOT INDICATED White Blood Count 6.2 Red Blood Count 3.95 Hemoglobin 12.0 Hematocrit 35.0 Mean Corpuscular Volume 88.5 Mean Corpuscular Hemoglobin 30.4 Mean Corpuscular Hemoglobin Concent 34.3 Red Cell Distribution Width 14.5 Platelet Count 247 Mean Platelet Volume 8.2 Neutrophils (%) (Auto) 65.2 Lymphocytes (%) (Auto) 19.3 Monocytes (%) (Auto) 9.0 Eosinophils (%) (Auto) 5.6 Basophils (%) (Auto) 0.9 Neutrophils # (Auto) 4.1 Lymphocytes # (Auto) 1.2 Monocytes # (Auto) 0.6 Eosinophils # (Auto) 0.3 Basophils # (Auto) 0.1 CBC Comment AUTO DIFF Differential Comment AUTO DIFF CONFIRMED Blood Urea Nitrogen 35 Creatinine 2.83 Random Glucose 99 Calcium Level 8.4 Sodium Level 137 Chloride Level 104 Carbon Dioxide Level 26.7 Anion Gap 6 Estimat Glomerular Filtration Rate 29 Random Vancomycin Level 13.0 Total Protein 7.0 Complement C3 112 Complement C4 36 Date/Time Source Procedure Growth Status 03/17/17 21:47 Blood Peripheral Aerobic Blood Culture - Preliminary NO GROWTH IN 2 DAYS Resulted 03/17/17 21:47 Blood Peripheral Anaerobic Blood Culture - Preliminary NO GROWTH IN 2 DAYS Resulted 03/17/17 21:13 Wound Leg Gram Stain - Final Resulted 03/17/17 21:13 Wound Culture - Preliminary Escherichia Coli Gram Negative Gerber Resulted Result Diagram: 03/19/17 0555 03/19/17 0555 Imaging Last Impressions Renal Ultrasound 03/18/17 0000 Signed Impressions: Service Date/Time: Saturday, March 18, 2017 18:30 - CONCLUSION: Ultrasound appearance of the kidneys and urinary bladder within normal limits. Cruz Segura MD Tibia/Fibula X-Ray 03/17/172120 Signed Impressions: Service Date/Time: February 21:42 - CONCLUSION: Intact left tibia and fibula. No radiopaque foreign body. Cruz Segura MD Assessment and Plan Assessment and Plan Probable venous insufficiency L medial maleous ulcer i the settings of chronic venous insufficiency Infected L medial maleous ulcer likely mixed aerobic/anaerobic co-infection stage IV CKD. Could be due to hypertensive nephrosclerosis. libby vacomycin srtart zosyn monitor renal fnx aggree with plan for debridement Joana Leo MD Mar 19, 2017 17:16
[2017-03-19] MEDS: PIPERACIL-TAZO 2.25 GM PREMIX 50 ML IV SCH ×2 (18:03→23:45)
[2017-03-19 20:24] VITALS: BP 168/89; PULSE 89; RESP 20; TEMP 97.9; O2SAT 97
[2017-03-20] VITALS (8 sets, daily range): BP systolic 144–200; BP diastolic 76–106; PULSE 75–100; RESP 17–22; TEMP 96.6–100.5; O2SAT 93–98
[2017-03-20] MEDS: HEPARIN SODIUM - SQ 10,000 UNITS/ML VIAL SQ SCH ×2 (02:42→13:00)
[2017-03-20] MEDS: MORPHINE SULFATE 4 MG/ML INJ IV PUSH PRN ×4 (03:35→21:07)
[2017-03-20] MEDS: hydrALAZINE HCL 50 MG TAB PO PRN ×2 (04:23→15:38)
[2017-03-20] MEDS ORDERED: LACTATED RINGER'S 1000 ML IV PRN (05:15)
[2017-03-20] MEDS: PIPERACIL-TAZO 2.25 GM PREMIX 50 ML IV SCH ×3 (06:00→18:00)
[2017-03-20] MEDS: hydrALAZINE HCL 50 MG TAB PO SCH ×3 (06:24→21:05)
[2017-03-20 07:59] LABS: AUTOMATED NEUTROPHIL # 3.7 TH/MM3 (1.8-7.7); BASOPHIL % 0.6 % (0.0-2.0); EOSINOPHIL # 0.3 TH/MM3 (0-0.4); EOSINOPHIL % 5.6 % (0.0-4.0); HEMATOCRIT 33.3 % (39.0-51.0); HEMO FLAGS DIFF FINAL; MEAN CELL VOLUME 88.2 FL (80.0-100.0); MEAN CORPUSCULAR HEMOGLOBIN 30.4 PG (27.0-34.0); MEAN CORPUSCULAR HGB CONC 34.5 % (32.0-36.0); MONO % 10.6 % (0.0-8.0); NEUT % 65.2 % (16.0-70.0); PLATELET COUNT 250 TH/MM3 (150-450); RED BLOOD COUNT 3.78 MIL/MM3 (4.50-5.90); RED CELL DISTRIBUTION WIDTH 14.6 % (11.6-17.2); WHITE BLOOD COUNT 5.6 TH/MM3 (4.0-11.0)
[2017-03-20] MEDS: SPIRONOLACTONE 25 MG TAB PO SCH (08:24)
[2017-03-20] MEDS: SODIUM CHLORIDE 0.9% FLUSH 10 ML FLUSH IV FLUSH SCH ×2 (08:24→21:06)
[2017-03-20 08:27] LABS: ANION GAP 5 MEQ/L (5-15); AST (GOT) 12 U/L (15-37); BICARBONATE 28.6 MEQ/L (21.0-32.0); BLOOD UREA NITROGEN 33 MG/DL (7-18); CHLORIDE 105 MEQ/L (98-107); GLOMERULAR FILTRATION RATE 34 ML/MIN (>89); POTASSIUM 3.4 MEQ/L (3.5-5.1); SODIUM (NA) 139 MEQ/L (136-145)
[2017-03-20 08:31] LABS: ALKALINE PHOSPHATASE 89 U/L (45-117); ALT (GPT) 19 U/L (12-78); TOTAL BILIRUBIN ADULT 0.3 MG/DL (0.2-1.0)
--- NOTE | 2017-03-20 11:02 | HHI.NPPN ---
Subjective Additional Remarks No acute complaints, for I&D today Objective Data Data Vital Signs Date Time Temp Pulse Resp B/P (MAP) Pulse Ox O2 Delivery O2 Flow Rate FiO2 03/20/17 08:00 97.0 77 17 157/76 (103) 97 03/20/17 04:00 97.0 75 20 188/101 (130) 93 03/20/17 00:57 180/106 (130) 03/20/17 00:24 96.6 79 20 200/100 (133) 98 03/19/17 20:24 97.9 89 20 168/89 (115) 97 03/19/17 16:00 97.1 71 20 138/109 (119) 96 03/19/17 12:00 97.6 65 22 179/98 (125) 93 -: 03/20/17 0647 03/20/17 0647 Physical Exam General Appearance: Well Developed, Well Nourished, No Acute Distress Throat Throat Exam: Oral Mucosa [place] & Moist Neck Neck Exam: Neck Supple Pulmonary Resp Exam: Clear Bilaterally, Decreased Bases Cardiology CV Exam: Regular, Normal Sinus Rhythm Gastrointestinal/Abdomen GI Exam: Soft, Non-Tender, Bowel Sounds Present Musculoskeletal MS Exam: Joints Intact Integumentary Skin Exam: Dry Extremeties Extremities Exam: No Edema Neurologic Neuro Exam: Alert, Awake, Oriented, Speech Clear Psychiatric Psych Exam: Appropriate Responses Assessment/Plan Problem List: (1) Renal insufficiency ICD Codes: N28.9 - Disorder of kidney and ureter, unspecified Status: Acute Plan: He has renal impairment at baseline , baseline creatinine 2.2-2.7: Appears to have stage IV CKD. Could be due to hypertensive nephrosclerosis. May have component of NASH due to use of NSAIDs, as well as infection. Creatinine stable today, continue to monitor. UA with 300 protein - will check spot protein/creatinine, A1C level. Renal USX wnl. Hypokalemia - Aldosterone/PRA ratio pending. Spironolactone started yesterday: may be useful in obese patients who can have aldosterone production in fatty tissue. BP improving - may further increase tomorrow if needed. Needs treatment of BRYAN as outpatient: there will be about 3% decrease in BP with successful management of BRYAN with CPAP. Needs weight loss. Encourage compliance. Treatment of wound infection. he admits to taking up to 10 Aleve per day at home; also has uncontrolled hypertension which may contribute to CKD Replace K as needed - will give today. Avoid NSAIDs, he was given Toradol this admission (2) Wound infection ICD Codes: T14.8 - Other injury of unspecified body region; L08.9 - Local infection of the skin and subcutaneous tissue, unspecified Status: Acute Plan: wound care has been ordered - I&D with podiatry tomorrow. (3) Hypokalemia ICD Codes: E87.6 - Hypokalemia; N18.9 - Chronic kidney disease, unspecified Status: Acute Plan: continue to replace as needed - KCl given today will start spironolactone (4) HTN (hypertension) ICD Codes: I10 - Essential (primary) hypertension Status: Chronic Plan: BP is poorly controlled, mainly due to non compliance, use of NSAIDs, obesity, and untreated BRYAN. Spironolactone started yesterday, BP slightly improved. Continue to monitor. . Given hypokalemia, CKD, proteinuria - consider NAKIA-I as renal function, as K further stabilizes Problem Qualifiers (1) HTN (hypertension): Qualified Codes: I10 - Essential (primary) hypertension Dionicio Booker MD Mar 20, 2017 11:02
[2017-03-20] MEDS: cloNIDine HCL 0.1 MG TAB PO PRN ×2 (11:36→18:05)
[2017-03-20] MEDS ORDERED: PROPOFOL 200 MG/20 ML AMP IV ONE (12:00)
[2017-03-20] MEDS ORDERED: SUCCINYLCHOLINE CHLORIDE 100 MG/5 ML SYRINGE IV PUSH ONE (12:00)
[2017-03-20] MEDS ORDERED: LIDOCAINE HCL 1% PF 5 ML AMPULE OTHER ONE (12:00)
[2017-03-20] MEDS ORDERED: LABETALOL HCL 100 MG/20 ML VIAL IV ONE (12:00)
[2017-03-20] MEDS ORDERED: ONDANSETRON HCL 4 MG/2 ML VIAL IV PUSH ONE (12:00)
[2017-03-20] MEDS ORDERED: NEOMYCIN/POLYMYXIN 1 ML G.U. IRRIGANT IRRIGATION ONE (12:00)
[2017-03-20] MEDS ORDERED: ESMOLOL HCL 100 MG/10 ML VIAL IV ONE (12:00)
--- NOTE | 2017-03-20 15:12 | HHI.PR ---
Subjective Remarks Resting in the bed Nothing by mouth for surgical procedure today Discussed plan of care and encourage patient for diet control Nutrition controlled, supportive care (Lyndsay Mora) Objective Objective Results - Vital Signs Date Time Temp Pulse Resp B/P (MAP) Pulse Ox O2 Delivery O2 Flow Rate FiO2 03/20/17 12:00 97.9 81 17 181/93 (122) 96 03/20/17 08:00 97.0 77 17 157/76 (103) 97 03/20/17 07:54 97 21 03/20/17 04:00 97.0 75 20 188/101 (130) 93 03/20/17 00:57 180/106 (130) 03/20/17 00:24 96.6 79 20 200/100 (133) 98 03/19/17 20:24 97.9 89 20 168/89 (115) 97 03/19/17 16:00 97.1 71 20 138/109 (119) 96 I/O 03/19/17 03/19/17 03/19/17 03/20/17 03/20/17 03/20/17 07:00 15:00 23:00 07:00 15:00 23:00 Intake Total 554 ml 2370 ml 100 ml 50 ml Output Total 950 ml 800 ml Balance -396 ml 2370 ml -700 ml 50 ml Intake Oral 1600 ml IV Total 554 ml 770 ml 100 ml 50 ml Output Urine Total 950 ml 800 ml # Voids 4 # Bowel Movements 1 (Lyndsay Mora) Result Diagram: 03/20/17 0647 03/20/17 0647 Medications and IVs Administered Medications Medications (Trade) Dose Ordered Sig/Stan Route PRN Reason Start Time Stop Time Status Last Admin Dose Admin Sodium Chloride (NS Flush) 2 ml BID IV FLUSH 03/18/17 09:00 03/20/17 08:24 Heparin Sodium (Porcine) (Heparin Inj) 5,000 units Q12H SQ 03/18/17 02:00 03/20/17 02:42 Morphine Sulfate (Morphine Inj) 4 mg Q3H PRN IV PUSH Pain 6-10;if unable to take PO 03/18/17 00:30 03/20/17 11:14 Magnesium Hydroxide (Milk Of Magnesia Liq) 30 ml Q12H PRN PO MILD - MODERATE CONSTIPATION 03/18/17 00:30 03/19/17 20:34 Clonidine (Catapres) 0.1 mg Q6H PRN PO sbp>160 03/18/17 00:30 03/20/17 11:36 Hydralazine HCl (Apresoline) 50 mg Q8HR PRN PO SBP>160, DBP>90 03/18/17 11:30 03/20/17 04:23 Hydralazine HCl (Apresoline) 50 mg Q8HR PO 03/18/17 14:00 03/20/17 13:00 Spironolactone (Aldactone) 25 mg DAILY PO 03/20/17 09:00 03/20/17 08:24 Piperacillin Sod/ Tazobactam Sod 50 ml @ 100 mls/hr Q6H IV 03/19/17 18:00 03/20/17 11:14 (Lyndsay Mora) ROS General: Fatigue, Weakness Cardiac: Other (hypertension) Skin: Other (left lower extremity swelling, wound open to air, surgical debridement today) (Lyndsay Mora) Physical Exam Physical Exam PHYSICAL EXAMINATION GENERAL: This is a morbidly obese male who appears to be in no acute distress. He is alert and awake, HEAD: Normocephalic without any lesion or mass noted. Facial features appear symmetric. OROPHARYNGEAL: Oropharynx without erythema or edema. NECK: Supple. No nuchal rigidity or lymphadenopathy. Trachea midline without deviation. CARDIAC: Regular rhythm, regular rate, S1 and S2 are heard. LUNGS: Clear to auscultation bilaterally. Mild diminished secondary to probable obesity No use of accessory muscles on inspiration or expiration. ABDOMEN: Soft, nontender, no organomegaly or masses. Bowel sounds are heard in all four quadrants. No rebound. No guarding. EXTREMITIES: Mild left lower edema. Pulses equal bilateral. , Lt Lower extremity wound, open to air, depth into subcutaneous tissue NEUROLOGICAL: Patient mood and affect appropriate, quiet No focal deficit SKIN:Warm and dry (Lyndsay Mora) A/P Assessment and Plan 1. Trauma open wound of left lower leg with infection. Antibiotic therapy, podiatry consult and appreciate input, patient possibly may need MRI of left lower leg and surgical debridement. Ultrasound lower extremities this a.m. cultures pending Wound culture showing gram-negative rods, gram-positive cocci, appreciate ID involvement for antibiotic, DC vancomycin, Zosyn started 2. Cellulitis of the left lower leg. No acute changes since admission, will continue antibiotic therapy, podiatry consult, dressings and wound care if needed, wound appears to be down to the subcutaneous level, nothing by mouth today for surgical procedure. Patient is patiently waiting in his room 3. Hypertensive urgency uncontrolled. Medical management with blood pressure meds, mild hypertension but also increase stress level today over going to surgery, when necessary medications ordered if needed. 4. Hypokalemia, severe., KCl given and monitoring labs, lab 3.3 today, 40 mEq potassium given. Recheck BMP in the morning 5. Renal failure Appreciate nephrology input, patient has renal impairment at the baseline, renal ultrasound no acute findings, avoid NSAIDs And nephrotoxic agents, consider spironolactone, encourage for compliance and weight loss 6. Anemia, probable secondary to chronic disease and chronic kidney disease. Continue to monitor labs Discussed with patient, present Discussed with nurse Discussed with Dr. begum, seen on his behalf (Lyndsay Mora) Assessment and Plan pt seen & examined d/w PT d/w lyndsay agree w above cont current tx will f/u (Gee Begum MD) Lyndsay Mora Mar 20, 2017 15:12 Gee Begum MD Mar 20, 2017 21:39
[2017-03-20] MEDS ORDERED: amLODIPine BESYLATE 5 MG TAB PO ONE (15:15)
[2017-03-20] MEDS ORDERED: SUGAMMADEX SODIUM 200 MG/2 ML VIAL IV PUSH ONE ×2 (16:37)
[2017-03-20] MEDS ORDERED: DO NOT ADM ANY ANTICOAGULANT DRUGS PRN (17:26)
--- NOTE | 2017-03-20 17:27 | HHI.PR ---
Immediate Post Op Note Procedure Date: Mar 20, 2017 Pre Op Diagnosis: (1) Wound cellulitis (2) Wound infection (3) Cellulitis of left foot Post Op Diagnosis: (1) Cellulitis of left foot (2) Wound infection Surgeon: Stacey Escoto Nursing Informatics Specialist(s): None Procedure: left leg incision and drainage. Findings: Consistent with diagnosis. Complications: None Specimen(s) removed: Soft tissue,left leg. Estimated blood loss: less that 3 cc Anesthesia: General Drains: None Tourniquet time (min at mmHg) left calf, applied but never inflated. Patient to: PACU Patient Condition: Good Stacey Escoto DPM Mar 20, 2017 17:27
[2017-03-20] MEDS ORDERED: *morphine SULFATE 8 MG/ML PERIprocedure ONLY ONE ×2 (17:45→17:57)
[2017-03-20] MEDS ORDERED: MAGNESIUM CITRATE SOLN 300 ML BTL PO ONE (21:00)
[2017-03-20] MEDS: cloNIDine HCL 0.1 MG TAB PO SCH (21:06)
--- NOTE | 2017-03-20 21:31 | MP ---
cc: YOHANA ESCOTO DPM DATE OF SURGERY 03/20/2017 DATE OF 1970 PREOPERATIVE DIAGNOSIS Left leg infection. PREOPERATIVE DIAGNOSIS Left leg infection. PROCEDURE Left leg incision and drainage. ANESTHESIOLOGIST Dr. Roth ANESTHESIA MAC. HEMOSTASIS Left calf tourniquet applied but never inflated. ESTIMATED BLOOD LOSS Less than 3 cc. MATERIALS None INJECTABLES Postoperatively 10 mL 0.5% Marcaine plain. BRIEF HISTORY The patient is a 46-year-old male with chief complaint of left leg injury approximately one month ago. He denies any treatment. Continued to be more painful, ulcerated, necrotic and foul odor. Presented to the ED, was admitted. The risks, benefits, pros and cons were discussed with the patient and he freely consented to surgical intervention. No guarantees were given or implied. PROCEDURE IN DETAIL The patient brought into the operating room and placed operating table in supine position. After general anesthesia was administered the left leg was prepped, scrubbed and draped in usual sterile aseptic manner. Tourniquet was applied to the left right calf but never inflated throughout the process. Attention was then directed to the left medial leg where the necrotic, nonviable tissue was sharply debrided with a #15 blade. Sharp excisional debridement of necrotic, nonviable tissue was carried out. Bleeders were Bovied as necessary. The wound base was curetted down to normal healthy bleeding tissue. The wound did not extend beyond the fascial compartment. Did not probe, the wound looked quite healthy after debridement. It measured 5.0 x 4.5 x approximately 0.3 in depth. The wound was pulse lavaged with 3 liters of normal sterile saline impregnated with bacitracin. Dry sterile dressings were applied using Adaptic, 4x4s, Vic, ABD and light Kwan wrap. The patient tolerated the procedure to completion. He will be transferred PACU for a brief period of postop monitoring after which he will be transferred to the floor and will be followed appropriately while in-house. . Yohana Escoto DPM SR/WADE /8:05 PM /9:16 PM
[2017-03-21] VITALS (7 sets, daily range): BP systolic 106–192; BP diastolic 61–102; PULSE 50–102; RESP 18–22; TEMP 96.9–101; O2SAT 94–98
[2017-03-21] MEDS: PIPERACIL-TAZO 2.25 GM PREMIX 50 ML IV SCH ×4 (00:18→20:32)
[2017-03-21] MEDS: HEPARIN SODIUM - SQ 10,000 UNITS/ML VIAL SQ SCH ×2 (00:52→14:14)
[2017-03-21] MEDS: MORPHINE SULFATE 4 MG/ML INJ IV PUSH PRN ×3 (00:53→08:45)
[2017-03-21] MEDS: hydrALAZINE HCL 50 MG TAB PO PRN (00:53)
[2017-03-21] MEDS: cloNIDine HCL 0.1 MG TAB PO PRN (03:48)
[2017-03-21] MEDS: hydrALAZINE HCL 50 MG TAB PO SCH ×3 (06:37→20:31)
[2017-03-21] MEDS: SPIRONOLACTONE 25 MG TAB PO SCH (08:15)
[2017-03-21] MEDS: amLODIPine BESYLATE 5 MG TAB PO SCH (08:15)
[2017-03-21] MEDS: SODIUM CHLORIDE 0.9% FLUSH 10 ML FLUSH IV FLUSH SCH ×2 (08:15→20:32)
[2017-03-21] MEDS: cloNIDine HCL 0.1 MG TAB PO SCH ×2 (08:15→20:31)
[2017-03-21 10:01] LABS: HEPATITIS B SURFACE ANTIBODY 2.3 mIU/mL
--- NOTE | 2017-03-21 11:40 | HHI.PR ---
Addendum to Inpatient Note Additional Information sp debridement GPC in pairs, clusters on Gstain op sepcimen - will add vancomycin Joana Leo MD Mar 21, 2017 11:40
--- NOTE | 2017-03-21 11:42 | HHI.NPPN ---
Subjective General Problems: Hypertension Renal Failure: Chronic, Acute Interval History He is sleepy, s/p I&D yesterday. Labs are not available. His blood pressure has been elevated. (Tashia Suazo) Review of Systems General Constitutional: Fatigue (Tashia Suazo) Objective Data Data 03/21/17 03/22/17 19:00 07:00 Intake Total 240 ml Balance 240 ml Intake Oral 240 ml Vital Signs Date Time Temp Pulse Resp B/P (MAP) Pulse Ox O2 Delivery O2 Flow Rate FiO2 03/21/17 08:21 97 03/21/17 08:00 97.4 98 20 174/94 (120) 95 03/21/17 04:00 97.6 99 22 192/98 (129) 94 03/21/17 00:00 99.4 98 22 176/102 (126) 95 03/20/17 20:00 100.5 100 22 144/85 (104) 97 03/20/17 18:00 96 22 176/94 (121) 94 Nasal Cannula 3 03/20/17 17:47 179/84 (115) 03/20/17 17:45 92 21 181/90 (120) 92 Nasal Cannula 3 03/20/17 17:35 174/86 (115) 03/20/17 17:34 98.0 92 22 188/89 (122) 96 Simple Mask 6 03/20/17 16:00 98.0 86 18 200/80 (120) 97 03/20/17 12:00 97.9 81 17 181/93 (122) 96 (Tashia Suazo) -: 03/20/17 0647 03/20/17 0647 Microbiology 03/20/17 Fungal Smear - Final, Resulted NO FUNGAL ELEMENTS SEEN. 03/20/17 Fungal Culture, Resulted Pending 03/20/17 Acid Fast Stain, Received Pending 03/20/17 Mycobacterial Culture, Received Pending 03/20/17 Gram Stain - Final, Resulted 03/20/17 Wound Culture, Resulted Pending 03/20/17 Fungal Smear - Final, Resulted NO FUNGAL ELEMENTS SEEN. 03/20/17 Fungal Culture, Resulted Pending 03/20/17 Acid Fast Stain, Received Pending 03/20/17 Mycobacterial Culture, Received Pending 03/20/17 Gram Stain - Final, Resulted 03/20/17 Wound Culture, Resulted Pending Imaging Last 72 hours Impressions Lower Extremity MRI 03/19/17 0000 Signed Impressions: Service Date/Time: Tuesday, March 19, 2017 15:45 - CONCLUSION: Subcutaneous edema about the leg, more prominent medially than laterally and some edema within the anterior and posterior muscle groups. No drainable fluid collections seen. No signal abnormalities within the marrow of the osseous structures to suggest osteomyelitis. Lawrence Raya MD (Tashia Suazo B. BLOOD BANK LABORATORY TECHNOLOGIST) Physical Exam General Appearance: Well Developed, Well Nourished, No Acute Distress, Sleeping (Tashia Suazo B. BLOOD BANK LABORATORY TECHNOLOGIST) Throat Throat Exam: Oral Mucosa [place] & Moist (Tashia Suazo B. BLOOD BANK LABORATORY TECHNOLOGIST) Neck Neck Exam: Neck Supple (LakeishaTashia B. BLOOD BANK LABORATORY TECHNOLOGIST) Pulmonary Resp Exam: Clear Bilaterally, Decreased Bases (Tashia Suazo B. BLOOD BANK LABORATORY TECHNOLOGIST) Cardiology CV Exam: Regular, Normal Sinus Rhythm (Tashia Suazo B. BLOOD BANK LABORATORY TECHNOLOGIST) Gastrointestinal/Abdomen GI Exam: Soft, Non-Tender, Bowel Sounds Present (Tashia Suazo B. BLOOD BANK LABORATORY TECHNOLOGIST) Musculoskeletal MS Exam: Joints Intact (Misha Suazoon B. BLOOD BANK LABORATORY TECHNOLOGIST) Integumentary Skin Exam: Warm, Dry Skin Remarks Left lower leg with dressing in place (Tashia Suazo B. BLOOD BANK LABORATORY TECHNOLOGIST) Extremeties Extremities Exam: No Edema (Misha Suazoon B. BLOOD BANK LABORATORY TECHNOLOGIST) Neurologic Neuro Exam: Awake, Oriented, Speech Clear (Tashia Suazo B. BLOOD BANK LABORATORY TECHNOLOGIST) Psychiatric Psych Exam: Appropriate Responses (Tashia Suazo B. BLOOD BANK LABORATORY TECHNOLOGIST) Assessment/Plan Discussed Condition With: Patient Assessment Summary: NASH/Acute Renal Failure, Hypertension Problem List: (1) Renal insufficiency ICD Codes: N28.9 - Disorder of kidney and ureter, unspecified Status: Acute Plan: He has renal impairment at baseline , baseline creatinine 2.2-2.7: Appears to have stage IV CKD. Could be due to hypertensive nephrosclerosis. May have component of NASH due to use of NSAIDs, as well as infection. Today's labs are unavailable. Yesterday had shown improvement Avoid NSAIDs, he was given Toradol this admission Repeat labs tomorrow He is non oliguric (2) Wound infection ICD Codes: T14.8 - Other injury of unspecified body region; L08.9 - Local infection of the skin and subcutaneous tissue, unspecified Status: Acute Plan: wound care provided, s/p I&D yesterday (3) Hypokalemia ICD Codes: E87.6 - Hypokalemia; N18.9 - Chronic kidney disease, unspecified Status: Acute Plan: continue to replace as needed on spironolactone, may be useful in obese patients who can have aldosterone production in fatty tissue. Aldosterone/PRA ratio pending. (4) HTN (hypertension) ICD Codes: I10 - Essential (primary) hypertension Status: Chronic Plan: BP is poorly controlled, He is on Spironolactone, amlodipine, and clonidine Add coreg follow BP and consider NAKIA for discharge purposes Needs treatment of BRYAN as outpatient: there will be about 3% decrease in BP with successful management of BRYAN with CPAP. Needs weight loss. (Tashia Suazo) Plan patient was seen and examined. Workup for secondary hypertension in progress. Renal function is better. Increase Coreg to 12.5 mg PO BID. (Kurt Chiang MD) Problem Qualifiers (1) HTN (hypertension): Qualified Codes: I10 - Essential (primary) hypertension Tashia Suazo Mar 21, 2017 11:42 Kurt Chiang MD Mar 21, 2017 21:34
[2017-03-21] MEDS ORDERED: Vancomycin Consult Pharmacy 1 EA OTHER SCH (11:45)
[2017-03-21] MEDS: CARVEDILOL 3.125 MG TAB PO SCH ×2 (12:44→20:31)
[2017-03-21 13:48] LABS: ANA SCREEN NEG (NEG)
--- NOTE | 2017-03-21 14:03 | HHI.PR ---
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 Review of Systems Constitutional Constitutional Remarks 12 point ros completed, neg except as noted above Vitals/Results Intake & Output 03/21/17 03/21/17 03/22/17 15:00 23:00 07:00 Intake Total 240 ml Balance 240 ml Intake Oral 240 ml Vital Signs Vital Signs Date Time Temp Pulse Resp B/P (MAP) Pulse Ox O2 Delivery O2 Flow Rate FiO2 03/21/17 12:00 96.9 50 20 106/61 (76) 98 03/21/17 08:21 97 03/21/17 08:00 97.4 98 20 174/94 (120) 95 03/21/17 04:00 97.6 99 22 192/98 (129) 94 03/21/17 00:00 99.4 98 22 176/102 (126) 95 03/20/17 20:00 100.5 100 22 144/85 (104) 97 03/20/17 18:00 96 22 176/94 (121) 94 Nasal Cannula 3 03/20/17 17:47 179/84 (115) 03/20/17 17:45 92 21 181/90 (120) 92 Nasal Cannula 3 03/20/17 17:35 174/86 (115) 03/20/17 17:34 98.0 92 22 188/89 (122) 96 Simple Mask 6 03/20/17 16:00 98.0 86 18 200/80 (120) 97 CBC/BMP: 03/20/17 0647 03/20/17 0647 Microbiology Microbiology 03/20/17 Fungal Smear - Final, Resulted NO FUNGAL ELEMENTS SEEN. 03/20/17 Fungal Culture, Resulted Pending 03/20/17 Acid Fast Stain, Received Pending 03/20/17 Mycobacterial Culture, Received Pending 03/20/17 Gram Stain - Final, Resulted 03/20/17 Wound Culture - Preliminary, Resulted Gram Negative [place] 03/20/17 Fungal Smear - Final, Resulted NO FUNGAL ELEMENTS SEEN. 03/20/17 Fungal Culture, Resulted Pending 03/20/17 Acid Fast Stain, Received Pending 03/20/17 Mycobacterial Culture, Received Pending 03/20/17 Gram Stain - Final, Resulted 03/20/17 Wound Culture - Preliminary, Resulted Gram Negative [place] Physical Exam General General Appearance: Well Developed, Well Nourished, No Acute Distress, Comfortable, Obese Ears & Nose Ears & Nose Exam: Nasal Mucosa [place] Throat Throat Exam: Oral Mucosa [place] & Moist Neck Neck Exam: Neck Supple Pulmonary Resp Exam: Clear Bilaterally, Decreased Bases Cardiology CV Exam: Regular, Normal Sinus Rhythm Gastrointestinal/Abdomen GI Exam: Soft, Non-Tender, Bowel Sounds Present, Non-Distended Musculoskeletal MS Exam: Joints Intact Integumentary Skin Exam: Warm, Dry Extremeties Extremities Exam: Pedal Pulses Palpable, Moderate Edema (LLE, left foot ) Extremeties Remarks dressing left lower ext. D/I Neurologic Neuro Exam: Alert, Awake, Oriented, Speech Clear, Television Production Assistant Equal Psychiatric Psych Exam: Appropriate Responses VTE Prophylaxis VTE Prophylaxis Meds: Heparin Assessment/Plan Assessment/Plan Left leg with painful ulcer with a 5 cm round eschar medial left ankle Uncontrolled sleep apnea,refuses to wear the mask Morbid obesity Uncontrolled hypertension Acute kidney injury versus chronic kidney disease Elevated blood glucose Hypokalemia Plan: S/P ID left leg wound 03/20 wound care appreciate podiatry input Wound culture + GNR ID following continue abx per recommendations follow cultures recommended to lose weight needs to use CPAP BP poorly controlled some improvement continue meds scheduled and PRN Hypokalemia, resolving renal function better instructed to avoid NSAIDs, control BP Continue with Heparin for DVT prophylaxis Poss dc in 1-2 days when final abx recommendations and podiatry has cleared. Labs in am D/W RN D/W pt D/W Dr. Begum This patient was seen by myself and Dr. Begum, this note is written on his behalf Arpita Cazares Mar 21, 2017 14:03
[2017-03-21] MEDS ORDERED: VANCOMYCIN INJ 2,250 MG in SODIUM CHLORID 0.9% 500 ML INJ 500 ML IV ONE (15:00)
[2017-03-21] MEDS: ACETAMINOPHEN 325 MG TAB PO PRN ×2 (16:39→20:31)
[2017-03-21 22:30] LABS: ALBUMIN SPE 4.03 GM/DL (3.50-5.00); ALPHA 1 GLOBULIN 0.18 GM/DL (0.11-0.29); ALPHA 2 GLOBULIN 0.74 GM/DL (0.22-1.00); BETA GLOBULINS (SPE) 0.82 GM/DL (0.53-1.03)
[2017-03-22] VITALS: BP 143/77; PULSE 90; RESP 20; TEMP 99.8; O2SAT 93
[2017-03-22] MEDS: ACETAMINOPHEN 325 MG TAB PO PRN ×3 (00:49→17:14)
[2017-03-22] MEDS: PIPERACIL-TAZO 2.25 GM PREMIX 50 ML IV SCH ×4 (00:50→17:14)
[2017-03-22] MEDS: HEPARIN SODIUM - SQ 10,000 UNITS/ML VIAL SQ SCH ×2 (00:51→13:03)
[2017-03-22] MEDS: MORPHINE SULFATE 4 MG/ML INJ IV PUSH PRN (04:00)
[2017-03-22] MEDS: hydrALAZINE HCL 50 MG TAB PO SCH ×3 (04:55→19:55)
[2017-03-22 08:00] VITALS: BP 156/80; PULSE 106; RESP 20; TEMP 98.1; O2SAT 95
[2017-03-22 08:06] LABS: HEMATOCRIT 33.7 % (39.0-51.0); MEAN CELL VOLUME 89.6 FL (80.0-100.0); MEAN CORPUSCULAR HEMOGLOBIN 30.3 PG (27.0-34.0); MEAN CORPUSCULAR HGB CONC 33.8 % (32.0-36.0); PLATELET COUNT 249 TH/MM3 (150-450); RED BLOOD COUNT 3.76 MIL/MM3 (4.50-5.90); RED CELL DISTRIBUTION WIDTH 15.1 % (11.6-17.2); REVIEW FLAG FINAL; WHITE BLOOD COUNT 13.7 TH/MM3 (4.0-11.0)
[2017-03-22 08:31] LABS: ALT (GPT) 23 U/L (12-78); ANION GAP 8 MEQ/L (5-15); AST (GOT) 19 U/L (15-37); BICARBONATE 27.9 MEQ/L (21.0-32.0); BLOOD UREA NITROGEN 37 MG/DL (7-18); CHLORIDE 105 MEQ/L (98-107); GLOMERULAR FILTRATION RATE 24 ML/MIN (>89); POTASSIUM 3.9 MEQ/L (3.5-5.1); SODIUM (NA) 141 MEQ/L (136-145)
[2017-03-22 08:34] LABS: ALKALINE PHOSPHATASE 82 U/L (45-117); TOTAL BILIRUBIN ADULT 0.7 MG/DL (0.2-1.0)
[2017-03-22] MEDS: SPIRONOLACTONE 25 MG TAB PO SCH (08:39)
[2017-03-22] MEDS: cloNIDine HCL 0.1 MG TAB PO SCH ×2 (08:39→19:55)
[2017-03-22] MEDS: amLODIPine BESYLATE 5 MG TAB PO SCH (08:39)
[2017-03-22] MEDS: CARVEDILOL 12.5 MG TAB PO SCH ×2 (08:39→19:55)
[2017-03-22] MEDS: SODIUM CHLORIDE 0.9% FLUSH 10 ML FLUSH IV FLUSH SCH ×2 (08:40→19:55)
--- NOTE | 2017-03-22 09:45 | HHI.PR ---
Subjective Subjective Remarks Febrile overnight, max temperature 101 Complain of right ankle pain, extremely tender to minimal palpation Denies any recent injury Indicates pain started yesterday Noted with swelling Denies any chest pain No shortness of breath at bedside Review of Systems Constitutional Constitutional Remarks 12 point ros completed, neg except as noted above Vitals/Results Vital Signs Vital Signs Date Time Temp Pulse Resp B/P (MAP) Pulse Ox O2 Delivery O2 Flow Rate FiO2 03/22/17 00:00 99.8 90 20 143/77 (99) 93 03/21/17 20:00 100.1 102 18 162/76 (104) 94 03/21/17 16:00 101.0 100 20 157/87 (110) 94 03/21/17 12:00 96.9 50 20 106/61 (76) 98 CBC/BMP: 03/22/17 0725 03/22/17 0725 Lab Results Laboratory Tests Test 03/22/17 07:25 White Blood Count 13.7 TH/MM3 Red Blood Count 3.76 MIL/MM3 Hemoglobin 11.4 GM/DL Hematocrit 33.7 % Mean Corpuscular Volume 89.6 FL Mean Corpuscular Hemoglobin 30.3 PG Mean Corpuscular Hemoglobin Concent 33.8 % Red Cell Distribution Width 15.1 % Platelet Count 249 TH/MM3 Mean Platelet Volume 8.3 FL Blood Urea Nitrogen 37 MG/DL Creatinine 3.29 MG/DL Random Glucose 138 MG/DL Total Protein 7.6 GM/DL Albumin 2.9 GM/DL Calcium Level 8.5 MG/DL Alkaline Phosphatase 82 U/L Aspartate Amino Transf (AST/SGOT) 19 U/L Alanine Aminotransferase (ALT/SGPT) 23 U/L Total Bilirubin 0.7 MG/DL Sodium Level 141 MEQ/L Potassium Level 3.9 MEQ/L Chloride Level 105 MEQ/L Carbon Dioxide Level 27.9 MEQ/L Anion Gap 8 MEQ/L Estimat Glomerular Filtration Rate 24 ML/MIN Physical Exam General General Appearance: Well Developed, Well Nourished, No Acute Distress, Comfortable, Obese Ears & Nose Ears & Nose Exam: Nasal Mucosa [place] Throat Throat Exam: Oral Mucosa [place] & Moist Neck Neck Exam: Neck Supple Pulmonary Resp Exam: Clear Bilaterally, Decreased Bases Cardiology CV Exam: Regular, Normal Sinus Rhythm Gastrointestinal/Abdomen GI Exam: Soft, Non-Tender, Bowel Sounds Present, Non-Distended Musculoskeletal MS Exam: Joints Intact MS Remarks Right ankle swelling, noted edematous, painful to minimal palpation Integumentary Skin Exam: Warm, Dry Extremeties Extremities Exam: Pedal Pulses Palpable, Moderate Edema (LLE, left foot and right foot) Extremeties Remarks dressing left lower ext. D/I Neurologic Neuro Exam: Alert, Awake, Oriented, Speech Clear, Institutional Asset Manager Equal Psychiatric Psych Exam: Appropriate Responses VTE Prophylaxis VTE Prophylaxis Meds: Heparin Assessment/Plan Assessment/Plan Left leg with painful ulcer with a 5 cm round eschar medial left ankle Uncontrolled sleep apnea,refuses to wear the mask Morbid obesity Uncontrolled hypertension Acute kidney injury versus chronic kidney disease Elevated blood glucose Hypokalemia Plan: S/P ID left leg wound 03/20 wound care appreciate podiatry input Wound culture + GNR Gram-positive cocci in pairs ID following continue abx per recommendations follow cultures Remains febrile, with leukocytosis, WBC 13.7 recommended to lose weight needs to use CPAP BP poorly controlled Improving continue meds scheduled and PRN renal function noted with increase in creatinine today, 3.29, GFR 24 We will DC LR and start normal saline at 42 instructed to avoid NSAIDs, control BP Monitor BP, avoid nephrotoxic agents Appreciate nephrology input Nonoliguric Right ankle pain, denies any trauma, possible gout We will obtain x-ray of right ankle, rule out fracture Check uric acid We will add by mouth narcotic Continue with IV morphine for severe pain Continue with Heparin for DVT prophylaxis Consult case management for discharge planning, home health care, PT, possibly IV antibiotics Poss dc in 2 days when final abx recommendations and podiatry has cleared. Remained febrile, patient not ready for discharge Labs in am D/W RN D/W pt and D/W Dr. Begum This patient was seen by myself and Dr. Begum, this note is written on his behalf Arpita Cazares Mar 22, 2017 09:44
[2017-03-22] MEDS: SODIUM CHLOR 0.9% 1000 ML INJ 1,000 ML IV SCH (10:00)
--- NOTE | 2017-03-22 10:24 | HHI.NPPN ---
Subjective General Problems: Hypertension Renal Failure: Chronic, Acute Interval History He seems more alert today. at bedside. Renal function is worse today. (Tashia Suazo) Review of Systems General Constitutional: Fatigue (Tashia Suazo) Objective Data Data Vital Signs Date Time Temp Pulse Resp B/P (MAP) Pulse Ox O2 Delivery O2 Flow Rate FiO2 03/22/17 00:00 99.8 90 20 143/77 (99) 93 03/21/17 20:00 100.1 102 18 162/76 (104) 94 03/21/17 16:00 101.0 100 20 157/87 (110) 94 03/21/17 12:00 96.9 50 20 106/61 (76) 98 (Tashia Suazo) -: 03/22/17 0725 03/22/17 0725 Physical Exam General Appearance: Well Developed, Well Nourished, No Acute Distress, Comfortable, Obese (Tashia Suazo) Ears & Nose Ears & Nose Exam: Nasal Mucosa [place] (Tashia Suazo) Throat Throat Exam: Oral Mucosa [place] & Moist (Tashia Suazo) Neck Neck Exam: Neck Supple (Tashia Suazo) Pulmonary Resp Exam: Clear Bilaterally, Decreased Bases (Tashia Suazo) Cardiology CV Exam: Regular, Normal Sinus Rhythm (Tashia Suazo) Gastrointestinal/Abdomen GI Exam: Soft, Non-Tender, Bowel Sounds Present, Non-Distended (Tashia Suazo) Musculoskeletal MS Exam: Joints Intact (Tashia Suazo) Integumentary Skin Exam: Warm, Dry Skin Remarks Left lower leg with dressing in place; 1+ edema (Tashia Suazo) Extremeties Extremities Exam: Pedal Pulses Palpable, Moderate Edema (Tashia Suazo) Neurologic Neuro Exam: Alert, Awake, Oriented, Speech Clear, Labor Relations Supervisor Equal (Tashia Suazo) Psychiatric Psych Exam: Appropriate Responses (Tashia Suazo) Assessment/Plan Discussed Condition With: Patient Assessment Summary: NASH/Acute Renal Failure, Hypertension Problem List: (1) Renal insufficiency ICD Codes: N28.9 - Disorder of kidney and ureter, unspecified Status: Acute Plan: He has renal impairment at baseline , baseline creatinine 2.2-2.7: Appears to have stage IV CKD. Could be due to hypertensive nephrosclerosis. May have component of NASH due to use of NSAIDs, as well as infection. Renal function is worse today; likely from rapid correction of hypertension He is non oliguric Avoid NSAIDs, he was given Toradol this admission Repeat labs tomorrow; await renal recovery It is possible he may require dialysis in the future; we have asked CM to assist with insurance assistance program if he qualifies (2) Wound infection ICD Codes: T14.8 - Other injury of unspecified body region; L08.9 - Local infection of the skin and subcutaneous tissue, unspecified Status: Acute Plan: wound care provided, s/p I&D he has been febrile; continue antibiotics (3) Hypokalemia ICD Codes: E87.6 - Hypokalemia; N18.9 - Chronic kidney disease, unspecified Status: Acute Plan: continue to replace as needed on spironolactone, may be useful in obese patients who can have aldosterone production in fatty tissue. Aldosterone/PRA ratio pending. (4) HTN (hypertension) ICD Codes: I10 - Essential (primary) hypertension Status: Chronic Plan: BP has improved On Spironolactone, amlodipine,coreg, and clonidine follow BP and consider changing to NAKIA for discharge purposes Needs treatment of BRYAN as outpatient: there will be about 3% decrease in BP with successful management of BRYAN with CPAP. Needs weight loss. Exercise and diet encouraged (Tashia Suazo) Problem List: (1) Renal insufficiency ICD Codes: N28.9 - Disorder of kidney and ureter, unspecified Status: Acute Plan: He has renal impairment at baseline , baseline creatinine 2.2-2.7: Appears to have stage IV CKD. Could be due to hypertensive nephrosclerosis. May have component of NASH due to use of NSAIDs, as well as infection. Renal function is worse today; likely from rapid correction of hypertension He is non oliguric Avoid NSAIDs, he was given Toradol this admission Repeat labs tomorrow; await renal recovery It is possible he may require dialysis in the future; we have asked CM to assist with insurance assistance program if he qualifies (2) Wound infection ICD Codes: T14.8 - Other injury of unspecified body region; L08.9 - Local infection of the skin and subcutaneous tissue, unspecified Status: Acute Plan: wound care provided, s/p I&D he has been febrile; continue antibiotics (3) Hypokalemia ICD Codes: E87.6 - Hypokalemia; N18.9 - Chronic kidney disease, unspecified Status: Acute Plan: continue to replace as needed on spironolactone, may be useful in obese patients who can have aldosterone production in fatty tissue. Aldosterone/PRA ratio pending. (4) HTN (hypertension) ICD Codes: I10 - Essential (primary) hypertension Status: Chronic Plan: BP has improved On Spironolactone, amlodipine,coreg, and clonidine follow BP and consider changing to NAKIA for discharge purposes Needs treatment of BRYAN as outpatient: there will be about 3% decrease in BP with successful management of BRYAN with CPAP. Needs weight loss. Exercise and diet encouraged Plan patient was seen and examined. Continue current management. Monitor renal function. No need to switch to NAKIA inhibitor. (Kurt Chiang MD) Problem Qualifiers (1) HTN (hypertension): Qualified Codes: I10 - Essential (primary) hypertension Tashia Suazo Mar 22, 2017 10:24 Kurt Chiang MD Mar 22, 2017 20:54
[2017-03-22 12:00] VITALS: BP 145/67; PULSE 92; RESP 20; TEMP 101.2; O2SAT 97
--- NOTE | 2017-03-22 12:41 | RADRPT ---
EXAM DATE/TIME: 03/22/2017 11:55 [facility] COMPARISON: No previous studies available for comparison. INDICATIONS : Pain in right ankle joint, denies trauma MEDICAL HISTORY : wound left lower leg SURGICAL HISTORY : None. ENCOUNTER: Initial ACUITY: 3 days PAIN SCORE: 8/10 LOCATION: Right ankle FINDINGS: There is no evidence of fracture or dislocation. Mineralization is normal. There is moderate soft tis elida swelling present diffusely. Ossification at the Achilles tendon insertion and at the plantar fasc ia attachment. CONCLUSION: Soft tissue swelling. No acute bony injury Cruz Lopez MD on March 22, 2017 at 12:38 Board Certified Radiologist. This report was verified electronically.
[2017-03-22 16:00] VITALS: BP 136/67; PULSE 95; RESP 20; TEMP 100.5; O2SAT 95
[2017-03-22] MEDS: COLCHICINE 0.6 MG TAB PO SCH (16:16)
[2017-03-22 16:21] LABS: HEMOGLOBIN A1a 1.1 %; HEMOGLOBIN A1b 1.8 %; HEMOGLOBIN Ao 83.8 %; HEMOGLOBIN LA1C 2.5 %; HEMOGLOBIN P3 5.8 %
[2017-03-22 20:00] VITALS: BP 146/71; PULSE 95; RESP 18; TEMP 99.6; O2SAT 93
[2017-03-23 00:39] VITALS: BP 156/88; PULSE 86; RESP 18; TEMP 99.2; O2SAT 97
[2017-03-23] MEDS: PIPERACIL-TAZO 2.25 GM PREMIX 50 ML IV SCH ×3 (01:03→12:01)
[2017-03-23] MEDS: MORPHINE SULFATE 4 MG/ML INJ IV PUSH PRN ×3 (01:03→21:09)
[2017-03-23] MEDS: HEPARIN SODIUM - SQ 10,000 UNITS/ML VIAL SQ SCH ×2 (01:06→12:43)
[2017-03-23] MEDS: SODIUM CHLOR 0.9% 1000 ML INJ 1,000 ML IV SCH ×2 (04:50→08:33)
[2017-03-23] MEDS: hydrALAZINE HCL 50 MG TAB PO SCH ×3 (04:50→21:01)
[2017-03-23 07:36] LABS: MEAN CELL VOLUME 90.5 FL (80.0-100.0); MEAN CORPUSCULAR HEMOGLOBIN 30.3 PG (27.0-34.0); MEAN CORPUSCULAR HGB CONC 33.5 % (32.0-36.0); PLATELET COUNT 228 TH/MM3 (150-450); RED BLOOD COUNT 3.31 MIL/MM3 (4.50-5.90); RED CELL DISTRIBUTION WIDTH 14.9 % (11.6-17.2); REVIEW FLAG FINAL
[2017-03-23 07:57] LABS: POTASSIUM 3.9 MEQ/L (3.5-5.1)
[2017-03-23 08:00] VITALS: BP 167/100; PULSE 89; RESP 20; TEMP 100; O2SAT 96
--- NOTE | 2017-03-23 08:29 | HHI.PR ---
Subjective Subjective Remarks fevers improving, max 100.5 right ankle pain better, able to flex some no bm since last week, was offered lax but declined, now wants to have it no cp no sob BP better controlled 140s voiding okay at bsd Review of Systems Constitutional Constitutional Remarks 12 point ros completed, neg except as noted above Vitals/Results Vital Signs Vital Signs Date Time Temp Pulse Resp B/P (MAP) Pulse Ox O2 Delivery O2 Flow Rate FiO2 03/23/17 00:39 99.2 86 18 156/88 (110) 97 03/22/17 20:00 99.6 95 18 146/71 (96) 93 03/22/17 16:00 100.5 95 20 136/67 (90) 95 03/22/17 12:00 101.2 92 20 145/67 (93) 97 CBC/BMP: 03/23/17 0650 03/23/17 0650 Lab Results Laboratory Tests Test 03/22/17 10:50 03/23/17 06:50 Urine Random Creatinine 154 MG/DL Urine Random Total Protein 426 MG/DL Urine Protein/Creatinine Ratio 2.77 White Blood Count 11.0 TH/MM3 Red Blood Count 3.31 MIL/MM3 Hemoglobin 10.1 GM/DL Hematocrit 30.0 % Mean Corpuscular Volume 90.5 FL Mean Corpuscular Hemoglobin 30.3 PG Mean Corpuscular Hemoglobin Concent 33.5 % Red Cell Distribution Width 14.9 % Platelet Count 228 TH/MM3 Mean Platelet Volume 8.7 FL Blood Urea Nitrogen 44 MG/DL Creatinine 3.78 MG/DL Random Glucose 117 MG/DL Calcium Level 8.6 MG/DL Sodium Level 139 MEQ/L Potassium Level 3.9 MEQ/L Chloride Level 105 MEQ/L Carbon Dioxide Level 27.0 MEQ/L Anion Gap 7 MEQ/L Estimat Glomerular Filtration Rate 21 ML/MIN Random Vancomycin Level 14.0 COMMENT Physical Exam General General Appearance: Well Developed, Well Nourished, No Acute Distress, Comfortable, Obese Ears & Nose Ears & Nose Exam: Nasal Mucosa [place] Throat Throat Exam: Oral Mucosa [place] & Moist Neck Neck Exam: Neck Supple Pulmonary Resp Exam: Clear Bilaterally, Decreased Bases Cardiology CV Exam: Regular, Normal Sinus Rhythm Gastrointestinal/Abdomen GI Exam: Soft, Non-Tender, Bowel Sounds Present, Non-Distended Musculoskeletal MS Exam: Joints Intact MS Remarks Right ankle swelling, noted edematous, painful to minimal palpation Integumentary Skin Exam: Warm, Dry Extremeties Extremities Exam: Pedal Pulses Palpable, Moderate Edema Extremeties Remarks dressing left lower ext. D/I Neurologic Neuro Exam: Alert, Awake, Oriented, Speech Clear, Sheep Killer Equal Psychiatric Psych Exam: Appropriate Responses VTE Prophylaxis VTE Prophylaxis Meds: Heparin Assessment/Plan Assessment/Plan Left leg with painful ulcer with a 5 cm round eschar medial left ankle Uncontrolled sleep apnea,refuses to wear the mask Morbid obesity Uncontrolled hypertension Acute kidney injury versus chronic kidney disease Elevated blood glucose Hypokalemia Poss gout right ankle Plan: S/P ID left leg wound 03/20 wound care appreciate podiatry input wound culture 03/20 + MRSA contact isolation ID following continue abx per recommendations-Zosyn, received Vanco follow cultures Fevers tapering recommended to lose weight needs to use CPAP BP poorly controlled improving on current meds continue meds scheduled and PRN renal functioning worsening Nonoliguric NS at 100/hr instructed to avoid NSAIDs, control BP Monitor BP, avoid nephrotoxic agents Appreciate nephrology input-may need HD in the future Right ankle pain, denies any trauma, possible gout We will obtain x-ray of right ankle, rule out fracture uric acid 8.4 right ankle xray, soft tissue swelling Started on Colchicine 0.6 mg po daily continue with pain management PO [place] and IV morphine for severe pain Constipated Bowel regimen in place Needs to inc activity PT eval Continue with Heparin for DVT prophylaxis Consulted case management for discharge planning, home health care, PT, possibly IV antibiotics Poss dc in 2 days when final abx recommendations and podiatry has cleared. fever improving Labs in am D/W RN D/W pt and D/W Dr. Begum This patient was seen by myself and Dr. Begum, this note is written on his behalf Arpita Cazarse Mar 23, 2017 08:29
[2017-03-23] MEDS: LACTULOSE SYRUP 20 GM/30 ML CUP PO PRN (08:32)
[2017-03-23] MEDS: COLCHICINE 0.6 MG TAB PO SCH (08:32)
[2017-03-23] MEDS: amLODIPine BESYLATE 5 MG TAB PO SCH (08:33)
[2017-03-23] MEDS: cloNIDine HCL 0.1 MG TAB PO SCH ×2 (08:33→21:01)
[2017-03-23] MEDS: CARVEDILOL 12.5 MG TAB PO SCH ×2 (08:33→21:01)
[2017-03-23] MEDS: SODIUM CHLORIDE 0.9% FLUSH 10 ML FLUSH IV FLUSH SCH ×2 (08:33→21:08)
[2017-03-23] MEDS: SPIRONOLACTONE 25 MG TAB PO SCH (08:33)
--- NOTE | 2017-03-23 10:04 | HHI.NPPN ---
Subjective General Problems: Hypertension Renal Failure: Chronic, Acute Interval History His renal function is worse although he is making urine. D/W patient and . IVF was started. (Tashia Suazo) Review of Systems General Constitutional: Fatigue (Tashia Suazo) Objective Data Data Vital Signs Date Time Temp Pulse Resp B/P (MAP) Pulse Ox O2 Delivery O2 Flow Rate FiO2 03/23/17 00:39 99.2 86 18 156/88 (110) 97 03/22/17 20:00 99.6 95 18 146/71 (96) 93 03/22/17 16:00 100.5 95 20 136/67 (90) 95 03/22/17 12:00 101.2 92 20 145/67 (93) 97 (Tashia Suazo) -: 03/23/17 0650 03/23/17 0650 Imaging Last 72 hours Impressions Ankle X-Ray 03/22/17 0000 Signed Impressions: Service Date/Time: Wednesday, March 22, 2017 11:55 - CONCLUSION: Soft tissue swelling. No acute bony injury Cruz Lopez MD (Tashia Suazo) Physical Exam General Appearance: Well Developed, Well Nourished, No Acute Distress, Comfortable, Obese (Tashia Suazo) Ears & Nose Ears & Nose Exam: Nasal Mucosa [place] (Tashia Suazo) Throat Throat Exam: Oral Mucosa [place] & Moist (Tashia Suazo) Neck Neck Exam: Neck Supple (Tashia Suazo) Pulmonary Resp Exam: Clear Bilaterally, Decreased Bases (Tashia Suazo) Cardiology CV Exam: Regular, Normal Sinus Rhythm (Tashia Suazo) Gastrointestinal/Abdomen GI Exam: Soft, Non-Tender, Bowel Sounds Present, Non-Distended (Tashia Suazo) Musculoskeletal MS Exam: Joints Intact (Tashia Suazo) Integumentary Skin Exam: Warm, Dry Skin Remarks Left lower leg with dressing in place; 1+ edema (Tashia Suazo) Extremeties Extremities Exam: Pedal Pulses Palpable, Moderate Edema (Tashia Suazo) Neurologic Neuro Exam: Alert, Awake, Oriented, Speech Clear, Patient Observer Equal (Tashia Suazo) Psychiatric Psych Exam: Appropriate Responses (Tashia Suazo) Assessment/Plan Discussed Condition With: Patient Assessment Summary: NASH/Acute Renal Failure, Hypertension Problem List: (1) Renal insufficiency ICD Codes: N28.9 - Disorder of kidney and ureter, unspecified Status: Acute Plan: It appears he has renal impairment at baseline , baseline creatinine 2.2- 2.7: Appears to have stage IV CKD. Etiology is uncertain He has unexplained proteinuria in a non diabetic (A1c was not elevated) Serum protein electrophoresis was negative, complement levels not low, ALVARO negative Differentials include FSGS or RPGN, ANCA and antiGBM were ordered His renal function continues to decline Stop IVF Continue to follow renal function, if no improvement may need biopsy tomorrow or Tuesday (Avoid ASA or blood thinners administration ) It is possible he may need dialysis this admission Repeat labs in AM It is possible he may require dialysis in the future; we have asked CM to assist with insurance assistance program if he qualifies (2) Wound infection ICD Codes: T14.8 - Other injury of unspecified body region; L08.9 - Local infection of the skin and subcutaneous tissue, unspecified Status: Acute Plan: wound care provided, s/p I&D he has been febrile; continue antibiotics (3) Hypokalemia ICD Codes: E87.6 - Hypokalemia; N18.9 - Chronic kidney disease, unspecified Status: Acute Plan: continue to replace as needed on spironolactone, may be useful in obese patients who can have aldosterone production in fatty tissue. Aldosterone/PRA ratio still pending. (4) HTN (hypertension) ICD Codes: I10 - Essential (primary) hypertension Status: Chronic Plan: BP has improved On Spironolactone, amlodipine,coreg, and clonidine Needs treatment of BRYAN as outpatient: there will be about 3% decrease in BP with successful management of BRYAN with CPAP. Needs weight loss. Exercise and diet encouraged (Tashia Suazo) Plan patient was seen and examined. Worsening renal function most likely secondary to correction of hypertension. He does have proteinuria, may have underlying FSGS or some other glomerular pathology. Continue to monitor renal function. (Kurt Chiang MD) Problem Qualifiers (1) HTN (hypertension): Qualified Codes: I10 - Essential (primary) hypertension Tashia SuazoP Mar 23, 2017 10:04 Kurt Chiang MD Mar 24, 2017 07:58
[2017-03-23 12:00] VITALS: BP 182/101; PULSE 82; RESP 18; TEMP 99.2; O2SAT 97
[2017-03-23] MEDS ORDERED: VANCOMYCIN INJ 2,250 MG in SODIUM CHLORID 0.9% 500 ML INJ 500 ML IV ONE (12:00)
--- NOTE | 2017-03-23 14:27 | HHI.IDPN ---
Subjective Subjective Remarks s/p I+D of the L ankle ulcer op clx with MRSA pt is having a fever up to 101 On O2 Antibiotics zosyn vancomycin Allergies: Coded Allergies: No Known Allergies (Verified , 03/17/17) Uncoded Allergies: nka (Allergy, Unknown, 02/26/03) Objective . Vital Signs Date Time Temp Pulse Resp B/P (MAP) Pulse Ox O2 Delivery O2 Flow Rate FiO2 03/23/17 12:00 99.2 82 18 182/101 (128) 97 03/23/17 08:00 100.0 89 20 167/100 (122) 96 03/23/17 00:39 99.2 86 18 156/88 (110) 97 03/22/17 20:00 99.6 95 18 146/71 (96) 93 03/22/17 16:00 100.5 95 20 136/67 (90) 95 03/23/17 03/23/17 03/24/17 15:00 23:00 07:00 Intake Total 763 ml Balance 763 ml IV Total 763 ml . Laboratory Tests Test 03/22/17 07:25 03/23/17 06:50 White Blood Count 13.7 TH/MM3 11.0 TH/MM3 Red Blood Count 3.76 MIL/MM3 3.31 MIL/MM3 Hemoglobin 11.4 GM/DL 10.1 GM/DL Hematocrit 33.7 % 30.0 % Mean Corpuscular Volume 89.6 FL 90.5 FL Mean Corpuscular Hemoglobin 30.3 PG 30.3 PG Mean Corpuscular Hemoglobin Concent 33.8 % 33.5 % Red Cell Distribution Width 15.1 % 14.9 % Platelet Count 249 TH/MM3 228 TH/MM3 Mean Platelet Volume 8.3 FL 8.7 FL Laboratory Tests Test 03/22/17 07:25 03/23/17 06:50 Blood Urea Nitrogen 37 MG/DL 44 MG/DL Creatinine 3.29 MG/DL 3.78 MG/DL Random Glucose 138 MG/DL 117 MG/DL Total Protein 7.6 GM/DL Albumin 2.9 GM/DL Calcium Level 8.5 MG/DL 8.6 MG/DL Alkaline Phosphatase 82 U/L Aspartate Amino Transf (AST/SGOT) 19 U/L Alanine Aminotransferase (ALT/SGPT) 23 U/L Total Bilirubin 0.7 MG/DL Sodium Level 141 MEQ/L 139 MEQ/L Potassium Level 3.9 MEQ/L 3.9 MEQ/L Chloride Level 105 MEQ/L 105 MEQ/L Carbon Dioxide Level 27.9 MEQ/L 27.0 MEQ/L Anion Gap 8 MEQ/L 7 MEQ/L Estimat Glomerular Filtration Rate 24 ML/MIN 21 ML/MIN Hemoglobin A1c 5.8 % Uric Acid 8.4 MG/DL Microbiology Date/Time Source Procedure Growth Status 03/20/17 17:10 Wound Leg Fungal Smear - Final NO FUNGAL ELEMENTS SEEN. Resulted 03/20/17 17:10 Wound Leg Fungal Culture Pending Resulted 03/20/17 17:10 Wound Leg Acid Fast Stain - Final NO ACID FAST BACILLI SEEN Resulted 03/20/17 17:10 Wound Leg Mycobacterial Culture Pending Resulted 03/20/17 17:10 Wound Leg Gram Stain - Final Complete 03/20/17 17:10 Wound Culture - Final S. Aureus Mrsa Complete 03/20/17 17:00 Wound Leg Fungal Smear - Final NO FUNGAL ELEMENTS SEEN. Resulted 03/20/17 17:00 Wound Leg Fungal Culture Pending Resulted 03/20/17 17:00 Wound Leg Acid Fast Stain - Final NO ACID FAST BACILLI SEEN Resulted 03/20/17 17:00 Wound Leg Mycobacterial Culture Pending Resulted 03/20/17 17:00 Wound Leg Gram Stain - Final Complete 03/20/17 17:00 Wound Culture - Final S. Aureus Mrsa Complete Imaging Last Impressions Ankle X-Ray 03/22/17 0000 Signed Impressions: Service Date/Time: Wednesday, March 22, 2017 11:55 - CONCLUSION: Soft tissue swelling. No acute bony injury Cruz Lopez MD Lower Extremity MRI 03/19/17 0000 Signed Impressions: Service Date/Time: Sunday, March 19, 2017 15:45 - CONCLUSION: Subcutaneous edema about the leg, more prominent medially than laterally and some edema within the anterior and posterior muscle groups. No drainable fluid collections seen. No signal abnormalities within the marrow of the osseous structures to suggest osteomyelitis. Lawrence Raya MD Renal Ultrasound 03/18/17 0000 Signed Impressions: Service Date/Time: Saturday, March 18, 2017 18:30 - CONCLUSION: Ultrasound appearance of the kidneys and urinary bladder within normal limits. Cruz Segura MD Tibia/Fibula X-Ray 03/17/[id number] Signed Impressions: Service Date/Time: February 21:42 - CONCLUSION: Intact left tibia and fibula. No radiopaque foreign body. Cruz Segura MD Physical Exam CONSTITUTIONAL/GENERAL: This is a morbidly obese patient, in no apparent distress. TUBES/LINES/DRAINS: SKIN: No jaundice, rashes, or lesions Skin temperature appropriate. Not diaphoretic. CARDIOVASCULAR: Regular rate and rhythm without murmurs, gallops, or rubs. No JVD. Peripheral pulses symmetric. RESPIRATORY/CHEST: Symmetric, unlabored respirations. Clear to auscultation. Breath sounds equal bilaterally. No wheezes, rales, or rhonchi. GASTROINTESTINAL: Abdomen soft, non-tender, quite distended. Bowel sounds present. MUSCULOSKELETAL: Extremities without clubbing, cyanosis, + 1 BLE edema, tight + chronic BLE hyperpigmentation LLE with surg dressing in place NEUROLOGICAL: Awake and alert. Motor and sensory grossly within normal limits. Follows commands. Clear speech. Moves all extremities. PSYCHIATRIC: No obvious anxiety/depression. no apparent hallucinations or other psychotic thought process. Assessment & Plan Remarks Probable venous insufficiency L medial maleous ulcer i the settings of chronic venous insufficiency - mixed MRSA and GNR sp I+D stage IV CKD. Could be due to hypertensive nephrosclerosis. - worsening creatinine New fever, SOB ? PNA dc vacomycin dc zosyn chk blood clx start zyvox + levaquine monitor renal fnx chk CXR chk urine eosinophils Joana Leo MD Mar 23, 2017 14:27
[2017-03-23] MEDS: LEVOFLOXACIN 500 MG TAB PO SCH (15:44)
[2017-03-23 16:00] VITALS: BP 173/100; PULSE 91; RESP 20; TEMP 99.5; O2SAT 98
--- NOTE | 2017-03-23 18:05 | RADRPT ---
EXAM DATE/TIME: 03/23/2017 17:40 [facility] COMPARISON: CHEST SINGLE AP, August 25, 2016, 18:39. INDICATIONS : Shortness of breath MEDICAL HISTORY : None. SURGICAL HISTORY : None. ENCOUNTER: Initial ACUITY: 1 day PAIN SCORE: 0/10 LOCATION: Bilateral chest FINDINGS: A single view of the chest demonstrates the lungs to be symmetrically aerated without evidence of mas s, infiltrate or effusion. Cardiac silhouette is enlarged. Osseous structures are intact. CONCLUSION: 1. Compensated cardiomegaly. 2. No significant interval change. Surendra Aparicio MD on March 23, 2017 at 18:03 Board Certified Radiologist. This report was verified electronically.
[2017-03-23 20:22] VITALS: BP 192/98; PULSE 90; RESP 20; TEMP 99.4; O2SAT 97
[2017-03-23] MEDS: LINEZOLID 600 MG TAB PO SCH (21:01)
[2017-03-24 00:53] VITALS: BP 140/66; PULSE 83; RESP 18; TEMP 99.4; O2SAT 97
[2017-03-24] MEDS: hydrALAZINE HCL 50 MG TAB PO SCH ×3 (03:41→20:43)
[2017-03-24] MEDS: HEPARIN SODIUM - SQ 10,000 UNITS/ML VIAL SQ SCH ×2 (03:45→12:33)
[2017-03-24] MEDS: ACETAMINOPHEN/HYDROcodone 325 MG/7.5 MG TAB PO PRN (04:18)
[2017-03-24 04:43] VITALS: BP 145/72; PULSE 82; RESP 18; TEMP 98.8; O2SAT 96
[2017-03-24 08:00] VITALS: BP 179/94; PULSE 80; RESP 19; TEMP 97.8; O2SAT 95
[2017-03-24 08:06] LABS: HEMATOCRIT 30.6 % (39.0-51.0); MEAN CELL VOLUME 91.1 FL (80.0-100.0); MEAN CORPUSCULAR HEMOGLOBIN 30.2 PG (27.0-34.0); MEAN CORPUSCULAR HGB CONC 33.1 % (32.0-36.0); PLATELET COUNT 250 TH/MM3 (150-450); RED BLOOD COUNT 3.36 MIL/MM3 (4.50-5.90); RED CELL DISTRIBUTION WIDTH 14.9 % (11.6-17.2); REVIEW FLAG FINAL; WHITE BLOOD COUNT 8.6 TH/MM3 (4.0-11.0)
[2017-03-24] MEDS: COLCHICINE 0.6 MG TAB PO SCH (08:22)
[2017-03-24] MEDS: SODIUM CHLORIDE 0.9% FLUSH 10 ML FLUSH IV FLUSH SCH ×2 (08:22→20:38)
[2017-03-24] MEDS: SPIRONOLACTONE 25 MG TAB PO SCH (08:22)
[2017-03-24] MEDS: amLODIPine BESYLATE 5 MG TAB PO SCH (08:22)
[2017-03-24] MEDS: CARVEDILOL 12.5 MG TAB PO SCH ×2 (08:22→20:35)
[2017-03-24] MEDS: LINEZOLID 600 MG TAB PO SCH ×2 (08:22→20:35)
[2017-03-24] MEDS: cloNIDine HCL 0.1 MG TAB PO SCH ×2 (08:22→20:35)
[2017-03-24 08:29] LABS: BICARBONATE 27.1 MEQ/L (21.0-32.0); POTASSIUM 4.1 MEQ/L (3.5-5.1)
--- NOTE | 2017-03-24 08:56 | HHI.NPPN ---
Subjective General Problems: Hypertension Renal Failure: Chronic, Acute Interval History Renal function is slightly better. BP control is poor, but better than before. Review of Systems General Constitutional: Fatigue Objective Data Data Vital Signs Date Time Temp Pulse Resp B/P (MAP) Pulse Ox O2 Delivery O2 Flow Rate FiO2 03/24/17 08:00 97.8 80 19 179/94 (122) 95 03/24/17 04:43 98.8 82 18 145/72 (96) 96 03/24/17 00:53 99.4 83 18 140/66 (90) 97 03/23/17 20:22 99.4 90 20 192/98 (129) 97 03/23/17 16:00 99.5 91 20 173/100 (124) 98 03/23/17 12:00 99.2 82 18 182/101 (128) 97 -: 03/24/17 0735 03/24/17 0735 Microbiology 03/24/17 Aerobic Blood Culture, Received Pending 03/24/17 Anaerobic Blood Culture, Received Pending 03/24/17 Aerobic Blood Culture, Received Pending 03/24/17 Anaerobic Blood Culture, Received Pending Physical Exam General Appearance: Well Developed, Well Nourished, No Acute Distress, Comfortable, Obese Ears & Nose Ears & Nose Exam: Nasal Mucosa [place] Throat Throat Exam: Oral Mucosa [place] & Moist Neck Neck Exam: Neck Supple Pulmonary Resp Exam: Clear Bilaterally, Decreased Bases Cardiology CV Exam: Regular, Normal Sinus Rhythm Gastrointestinal/Abdomen GI Exam: Soft, Non-Tender, Bowel Sounds Present, Non-Distended Musculoskeletal MS Exam: Joints Intact Integumentary Skin Exam: Warm, Dry Extremeties Extremities Exam: Pedal Pulses Palpable, Moderate Edema Neurologic Neuro Exam: Alert, Awake, Oriented, Speech Clear, Real Estate Leasing Manager Equal Psychiatric Psych Exam: Appropriate Responses Assessment/Plan Discussed Condition With: Patient Assessment Summary: NASH/Acute Renal Failure, Hypertension Problem List: (1) Renal insufficiency ICD Codes: N28.9 - Disorder of kidney and ureter, unspecified Status: Acute Plan: It appears he has renal impairment at baseline , baseline creatinine 2.2- 2.7: Appears to have stage IV CKD. 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 I have ordered ANCA to complete the workup, but vasculitis is unlikely. Acute worsening of renal function likely due to improvement of BP. No plans for renal biopsy if renal function is stable. Repeat labs in AM He will need dialysis in the near future. (2) Wound infection ICD Codes: T14.8 - Other injury of unspecified body region; L08.9 - Local infection of the skin and subcutaneous tissue, unspecified Status: Acute Plan: wound care provided, s/p I&D he has been febrile; continue antibiotics (3) Hypokalemia ICD Codes: E87.6 - Hypokalemia; N18.9 - Chronic kidney disease, unspecified Status: Acute Plan: Improved, on Spironolactone. PRA is not low, Aldosterone is still pending. (4) HTN (hypertension) ICD Codes: I10 - Essential (primary) hypertension Status: Chronic Plan: BP has improved On Spironolactone, amlodipine,coreg, and clonidine I will increase Carvedilol to 25 mg PO BID. Needs treatment of BRYAN as outpatient: there will be about 3% decrease in BP with successful management of BRYAN with CPAP. Needs weight loss. Exercise and diet encouraged Problem Qualifiers (1) HTN (hypertension): Qualified Codes: I10 - Essential (primary) hypertension Kurt Chiang MD Mar 24, 2017 08:56
[2017-03-24] MEDS ORDERED: CARVEDILOL 12.5 MG TAB PO SCH (09:00)
--- NOTE | 2017-03-24 11:26 | HHI.PR ---
Subjective Subjective Remarks fevers improving, max 99.5 right ankle pain better,got out of bed yesterday. did require 3 person assist no bm yet no cp no sob BP elevated at times, better controlled. voiding okay at bsd Review of Systems Constitutional Constitutional Remarks 12 point ros completed, neg except as noted above Vitals/Results Vital Signs Vital Signs Date Time Temp Pulse Resp B/P (MAP) Pulse Ox O2 Delivery O2 Flow Rate FiO2 03/24/17 08:00 97.8 80 19 179/94 (122) 95 03/24/17 04:43 98.8 82 18 145/72 (96) 96 03/24/17 00:53 99.4 83 18 140/66 (90) 97 03/23/17 20:22 99.4 90 20 192/98 (129) 97 03/23/17 16:00 99.5 91 20 173/100 (124) 98 03/23/17 12:00 99.2 82 18 182/101 (128) 97 CBC/BMP: 03/24/17 0735 03/24/17 0735 Lab Results Laboratory Tests Test 03/24/17 07:35 White Blood Count 8.6 TH/MM3 Red Blood Count 3.36 MIL/MM3 Hemoglobin 10.1 GM/DL Hematocrit 30.6 % Mean Corpuscular Volume 91.1 FL Mean Corpuscular Hemoglobin 30.2 PG Mean Corpuscular Hemoglobin Concent 33.1 % Red Cell Distribution Width 14.9 % Platelet Count 250 TH/MM3 Mean Platelet Volume 8.3 FL Blood Urea Nitrogen 48 MG/DL Creatinine 3.68 MG/DL Random Glucose 120 MG/DL Albumin 2.4 GM/DL Calcium Level 8.4 MG/DL Phosphorus Level 3.4 MG/DL Sodium Level 140 MEQ/L Potassium Level 4.1 MEQ/L Chloride Level 105 MEQ/L Carbon Dioxide Level 27.1 MEQ/L Anion Gap 8 MEQ/L Estimat Glomerular Filtration Rate 21 ML/MIN Microbiology Microbiology 03/24/17 Aerobic Blood Culture, Received Pending 03/24/17 Anaerobic Blood Culture, Received Pending 03/24/17 Aerobic Blood Culture, Received Pending 03/24/17 Anaerobic Blood Culture, Received Pending Physical Exam General General Appearance: Well Developed, Well Nourished, No Acute Distress, Comfortable, Obese Ears & Nose Ears & Nose Exam: Nasal Mucosa [place] Throat Throat Exam: Oral Mucosa [place] & Moist Neck Neck Exam: Neck Supple Pulmonary Resp Exam: Clear Bilaterally, Decreased Bases Cardiology CV Exam: Regular, Normal Sinus Rhythm Gastrointestinal/Abdomen GI Exam: Soft, Non-Tender, Bowel Sounds Present, Non-Distended Musculoskeletal MS Exam: Joints Intact MS Remarks Right ankle swelling, noted edematous, painful to minimal palpation Integumentary Skin Exam: Warm, Dry Extremeties Extremities Exam: Pedal Pulses Palpable, Moderate Edema Extremeties Remarks dressing left lower ext. D/I Neurologic Neuro Exam: Alert, Awake, Oriented, Speech Clear, Hand Alterations Seamstress Equal Psychiatric Psych Exam: Appropriate Responses VTE Prophylaxis VTE Prophylaxis Meds: Heparin Assessment/Plan Assessment/Plan Left leg with painful ulcer with a 5 cm round eschar medial left ankle Uncontrolled sleep apnea,refuses to wear the mask Morbid obesity Uncontrolled hypertension Acute kidney injury versus chronic kidney disease Elevated blood glucose Hypokalemia Poss gout right ankle Plan: S/P ID left leg wound 03/20 wound care appreciate podiatry input wound culture 03/20 + MRSA contact isolation ID following continue abx per recommendations-changed to PO, Zyvox and Levaquin follow cultures, last set negative Fevers tapering, better recommended to lose weight needs to use CPAP appears motivated to lose weight BP poorly controlled improving on current meds continue meds scheduled and PRN renal functioning with minimal improvement Nonoliguric NS at 100/hr instructed to avoid NSAIDs, control BP Monitor BP, avoid nephrotoxic agents Appreciate nephrology input-may need HD in the future Right ankle pain, denies any trauma, possible gout uric acid 8.4 right ankle xray, soft tissue swelling Continue Colchicine 0.6 mg po daily Right ankle pain improving, has increased activity. continue with pain management PO [place] and IV morphine for severe pain Constipated Bowel regimen in place If no BM, mag citrate will be given Needs to inc activity PT eval Encouraged to get out of bed and work with PT. Continue with Heparin for DVT prophylaxis Consulted case management for discharge planning, home health care, PT, possibly IV antibiotics Poss dc in 2 days when final abx recommendations and podiatry has cleared. fever improving Labs in am D/W RN D/W pt and D/W Dr. Begum This patient was seen by myself and Dr. Begum, this note is written on his behalf Arpita Cazares Mar 24, 2017 10:34
[2017-03-24] MEDS: MORPHINE SULFATE 4 MG/ML INJ IV PUSH PRN ×3 (11:28→22:52)
[2017-03-24 12:00] VITALS: BP 177/86; PULSE 72; RESP 20; TEMP 97.9; O2SAT 95
[2017-03-24] MEDS ORDERED: MAGNESIUM CITRATE SOLN 300 ML BTL PO ONE (12:00)
[2017-03-24 16:00] VITALS: BP 185/106; PULSE 86; RESP 20; TEMP 98.9; O2SAT 93
[2017-03-24 20:00] VITALS: BP 178/95; PULSE 85; RESP 22; TEMP 99.5; O2SAT 94
[2017-03-24] MEDS: LACTULOSE SYRUP 20 GM/30 ML CUP PO PRN (20:36)
[2017-03-25] VITALS: BP 146/84; PULSE 74; RESP 20; TEMP 97.9; O2SAT 96
[2017-03-25] MEDS: HEPARIN SODIUM - SQ 10,000 UNITS/ML VIAL SQ SCH ×2 (02:00→14:57)
[2017-03-25] MEDS: hydrALAZINE HCL 50 MG TAB PO SCH ×3 (04:20→16:29)
[2017-03-25 05:54] LABS: POTASSIUM 3.9 MEQ/L (3.5-5.1)
[2017-03-25 08:00] VITALS: BP 154/88; PULSE 75; RESP 21; TEMP 97.5; O2SAT 94
--- NOTE | 2017-03-25 09:14 | HHI.PR ---
Subjective Subjective Remarks fevers improving inc. activity as tolerated BP improving some no cp no sob right ankle pain better no BM yet, passing gas. Has not gotten up to sit on toilet. at bsd Review of Systems Constitutional Constitutional Remarks 12 point ros completed, neg except as noted above Vitals/Results Vital Signs Vital Signs Date Time Temp Pulse Resp B/P (MAP) Pulse Ox O2 Delivery O2 Flow Rate FiO2 03/25/17 08:00 97.5 75 21 154/88 (110) 94 03/25/17 00:00 97.9 74 20 146/84 (104) 96 03/24/17 20:00 99.5 85 22 178/95 (122) 94 03/24/17 16:00 98.9 86 20 185/106 (132) 93 03/24/17 12:00 97.9 72 20 177/86 (116) 95 CBC/BMP: 03/24/17 0735 03/25/17 0437 Lab Results Laboratory Tests Test 03/25/17 04:37 Blood Urea Nitrogen 50 MG/DL Creatinine 3.53 MG/DL Random Glucose 106 MG/DL Albumin 2.4 GM/DL Calcium Level 8.9 MG/DL Phosphorus Level 3.5 MG/DL Sodium Level 140 MEQ/L Potassium Level 3.9 MEQ/L Chloride Level 104 MEQ/L Carbon Dioxide Level 27.0 MEQ/L Anion Gap 9 MEQ/L Estimat Glomerular Filtration Rate 23 ML/MIN Physical Exam General General Appearance: Well Developed, Well Nourished, No Acute Distress, Comfortable, Obese Ears & Nose Ears & Nose Exam: Nasal Mucosa [place] Throat Throat Exam: Oral Mucosa [place] & Moist Neck Neck Exam: Neck Supple Pulmonary Resp Exam: Clear Bilaterally, Decreased Bases Cardiology CV Exam: Regular, Normal Sinus Rhythm Gastrointestinal/Abdomen GI Exam: Soft, Non-Tender, Bowel Sounds Present, Non-Distended Musculoskeletal MS Exam: Joints Intact MS Remarks Right ankle swelling, noted edematous, painful to minimal palpation Integumentary Skin Exam: Warm, Dry Extremeties Extremities Exam: Pedal Pulses Palpable, Moderate Edema Extremeties Remarks left wound evaluated, granulation tissue noted. Scant exudate Neurologic Neuro Exam: Alert, Awake, Oriented, Speech Clear, Pleater Hand Equal Psychiatric Psych Exam: Appropriate Responses VTE Prophylaxis VTE Prophylaxis Meds: Heparin Assessment/Plan Assessment/Plan Left leg with painful ulcer with a 5 cm round eschar medial left ankle Uncontrolled sleep apnea,refuses to wear the mask Morbid obesity Uncontrolled hypertension Acute kidney injury versus chronic kidney disease Elevated blood glucose Hypokalemia Poss gout right ankle Plan: S/P ID left leg wound 03/20 wound care appreciate podiatry input still with original dressing, will have RN change today with Adaptic, and gauze , clean with NS wound culture 03/20 + MRSA contact isolation ID following continue abx per recommendations-changed to PO, Zyvox and Levaquin follow cultures, last set negative Fevers tapering, better will d/w ID for PO recommendations recommended to lose weight needs to use CPAP appears motivated to lose weight BP poorly controlled improving on current meds continue meds scheduled and PRN renal functioning with some improvement Nonoliguric Dec. IVF instructed to avoid NSAIDs, control BP Monitor BP, avoid nephrotoxic agents Appreciate nephrology input-may need HD in the future work up in progress Right ankle pain, denies any trauma, possible gout uric acid 8.4 right ankle xray, soft tissue swelling Continue Colchicine 0.6 mg po daily Right ankle pain improving, has increased activity. DC Colchicine, right ankle pain improved continue with pain management PO [place] and IV morphine for severe pain Constipated Bowel regimen in place received Mag citrate, no bm has not try to sit on toilet has not had BM, will given Dulcolax today Lactulose daily needs to increase activity Needs to inc activity PT eval Encouraged to get out of bed and work with PT. Continue with Heparin for DVT prophylaxis Consulted case management for discharge planning, home health care, PT, possibly IV antibiotics Improving, no fever, renal fx slightly better poss dc tomorrow if consultants clear D/W RN D/W pt and D/W Dr. Begum This patient was seen by myself and Dr. Begum, this note is written on his behalf Arpita Cazares Mar 25, 2017 09:14
--- NOTE | 2017-03-25 09:46 | HHI.NPPN ---
Subjective General Problems: Hypertension Renal Failure: Chronic, Acute Interval History Creatinine improving. He is more awake today. (Tashia Suazo) Review of Systems General Constitutional: Fatigue (Tashia Suazo) Objective Data Data Vital Signs Date Time Temp Pulse Resp B/P (MAP) Pulse Ox O2 Delivery O2 Flow Rate FiO2 03/25/17 08:00 97.5 75 21 154/88 (110) 94 03/25/17 00:00 97.9 74 20 146/84 (104) 96 03/24/17 20:00 99.5 85 22 178/95 (122) 94 03/24/17 16:00 98.9 86 20 185/106 (132) 93 03/24/17 12:00 97.9 72 20 177/86 (116) 95 (Tashia Suazo) -: 03/24/17 0735 03/25/17 0437 Imaging Last 72 hours Impressions Chest X-Ray 03/23/17 0000 Signed Impressions: Service Date/Time: Thursday, March 23, 2017 17:40 - CONCLUSION: 1. Compensated cardiomegaly. 2. No significant interval change. Surendra Aparicio MD (Tashia Suazo) Physical Exam General Appearance: Well Developed, Well Nourished, No Acute Distress, Comfortable, Obese (Tashia Suazo) Eyes Eye Exam: Pupils Equal, Pupils Reactive (Tashia Suazo) Ears & Nose Ears & Nose Exam: Nasal Mucosa [place] (Tashia Suazo) Throat Throat Exam: Oral Mucosa [place] & Moist (Tashia Suazo) Neck Neck Exam: Neck Supple (Tashia Suazo) Pulmonary Resp Exam: Clear Bilaterally, Breath Sounds Equal, Decreased Bases (Tashia Suazo) Cardiology CV Exam: Regular, Normal Sinus Rhythm (Tashia Suazo) Gastrointestinal/Abdomen GI Exam: Soft, Non-Tender, Bowel Sounds Present, Non-Distended GI Remarks round, obese, firm (Tashia Suazo) Musculoskeletal MS Exam: Joints Intact (Tashia Suazo) Integumentary Skin Exam: Warm, Dry Skin Remarks Left lower leg with ulcer medially, dressing in place, some drainage (Tashia Suazo) Extremeties Extremities Exam: Pedal Pulses Palpable, Moderate Edema (Tashia Suazo) Neurologic Neuro Exam: Alert, Awake, Oriented, Speech Clear, Moving All Extremities, Electrical Apprentice Equal (Tashia Suazo) Psychiatric Psych Exam: Appropriate Responses (Tashia Suazo) Assessment/Plan Discussed Condition With: Patient, Spouse Assessment Summary: NASH/Acute Renal Failure, Hypertension Problem List: (1) Renal insufficiency ICD Codes: N28.9 - Disorder of kidney and ureter, unspecified Status: Acute Plan: It appears he has renal impairment at baseline , baseline creatinine 2.2- 2.7: Appears to have stage IV CKD. 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 ANCA is in process, but vasculitis is unlikely. Acute worsening of renal function likely due to rapid improvement of BP. Renal function is improving, although BUN is slightly higher He is non oliguric Oral fluid intake encouraged If continued improvement, renal biopsy will not be required Repeat labs in AM He will most likely require dialysis in the near future. (2) Wound infection ICD Codes: T14.8 - Other injury of unspecified body region; L08.9 - Local infection of the skin and subcutaneous tissue, unspecified Status: Acute Plan: wound care provided, s/p I&D he has been febrile; continue antibiotics (3) Hypokalemia ICD Codes: E87.6 - Hypokalemia; N18.9 - Chronic kidney disease, unspecified Status: Acute Plan: Improved, on Spironolactone. PRA is not low, Aldosterone is still pending. (4) HTN (hypertension) ICD Codes: I10 - Essential (primary) hypertension Status: Chronic Plan: BP has improved On Spironolactone, amlodipine,coreg, and clonidine Needs treatment of BRYAN as outpatient: there will be about 3% decrease in BP with successful management of BRYAN with CPAP. Needs weight loss. Exercise and diet encouraged (Tashia Suazo) Problem List: (1) Renal insufficiency ICD Codes: N28.9 - Disorder of kidney and ureter, unspecified Status: Acute Plan: It appears he has renal impairment at baseline , baseline creatinine 2.2- 2.7: Appears to have stage IV CKD. 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 ANCA is in process, but vasculitis is unlikely. Acute worsening of renal function likely due to rapid improvement of BP. Renal function is improving, although BUN is slightly higher He is non oliguric Oral fluid intake encouraged If continued improvement, renal biopsy will not be required Repeat labs in AM He will most likely require dialysis in the near future. (2) Wound infection ICD Codes: T14.8 - Other injury of unspecified body region; L08.9 - Local infection of the skin and subcutaneous tissue, unspecified Status: Acute Plan: wound care provided, s/p I&D he has been febrile; continue antibiotics (3) Hypokalemia ICD Codes: E87.6 - Hypokalemia; N18.9 - Chronic kidney disease, unspecified Status: Acute Plan: Improved, on Spironolactone. PRA is not low, Aldosterone is still pending. (4) HTN (hypertension) ICD Codes: I10 - Essential (primary) hypertension Status: Chronic Plan: BP has improved On Spironolactone, amlodipine,coreg, and clonidine Needs treatment of BRYAN as outpatient: there will be about 3% decrease in BP with successful management of BRYAN with CPAP. Needs weight loss. Exercise and diet encouraged Plan patient was seen and examined. Renal function has improved. No need for renal biopsy. He can be discharged from renal standpoint on current medications. (Kurt Chiang MD) Problem Qualifiers (1) HTN (hypertension): Qualified Codes: I10 - Essential (primary) hypertension Tashia SuazoP Mar 25, 2017 09:46 Kurt Chiang MD Mar 25, 2017 16:56
[2017-03-25] MEDS: LINEZOLID 600 MG TAB PO SCH (09:47)
[2017-03-25] MEDS: SPIRONOLACTONE 25 MG TAB PO SCH (09:48)
[2017-03-25] MEDS: COLCHICINE 0.6 MG TAB PO SCH (09:48)
[2017-03-25] MEDS: amLODIPine BESYLATE 5 MG TAB PO SCH (09:48)
[2017-03-25] MEDS: cloNIDine HCL 0.1 MG TAB PO SCH ×2 (09:48→21:56)
[2017-03-25] MEDS: CARVEDILOL 12.5 MG TAB PO SCH ×2 (09:48→21:55)
[2017-03-25] MEDS: LACTULOSE SYRUP 20 GM/30 ML CUP PO SCH (10:39)
[2017-03-25] MEDS: ACETAMINOPHEN/HYDROcodone 325 MG/7.5 MG TAB PO PRN ×2 (10:40→18:40)
[2017-03-25 12:00] VITALS: BP 133/73; PULSE 73; RESP 21; TEMP 97.5; O2SAT 96
[2017-03-25] MEDS ORDERED: DOXY100C PO (14:51)
[2017-03-25] MEDS: LEVOFLOXACIN 500 MG TAB PO SCH (14:56)
--- NOTE | 2017-03-25 15:27 | HHI.IDPN ---
Subjective Subjective Remarks Doing better Off O2 deneis SOB no cogh NO fever Antibiotics zyvox levaquine Allergies: Coded Allergies: No Known Allergies (Verified , 03/17/17) Uncoded Allergies: nka (Allergy, Unknown, 02/26/03) Objective . Vital Signs Date Time Temp Pulse Resp B/P (MAP) Pulse Ox O2 Delivery O2 Flow Rate FiO2 03/25/17 12:00 97.5 73 21 133/73 (93) 96 03/25/17 08:00 97.5 75 21 154/88 (110) 94 03/25/17 00:00 97.9 74 20 146/84 (104) 96 03/24/17 20:00 99.5 85 22 178/95 (122) 94 03/24/17 16:00 98.9 86 20 185/106 (132) 93 03/25/17 03/25/17 03/26/17 14:59 22:59 06:59 # Bowel Movements 1 . Laboratory Tests Test 03/24/17 07:35 White Blood Count 8.6 TH/MM3 Red Blood Count 3.36 MIL/MM3 Hemoglobin 10.1 GM/DL Hematocrit 30.6 % Mean Corpuscular Volume 91.1 FL Mean Corpuscular Hemoglobin 30.2 PG Mean Corpuscular Hemoglobin Concent 33.1 % Red Cell Distribution Width 14.9 % Platelet Count 250 TH/MM3 Mean Platelet Volume 8.3 FL Laboratory Tests Test 03/24/17 07:35 03/25/17 04:37 Blood Urea Nitrogen 48 MG/DL 50 MG/DL Creatinine 3.68 MG/DL 3.53 MG/DL Random Glucose 120 MG/DL 106 MG/DL Albumin 2.4 GM/DL 2.4 GM/DL Calcium Level 8.4 MG/DL 8.9 MG/DL Phosphorus Level 3.4 MG/DL 3.5 MG/DL Sodium Level 140 MEQ/L 140 MEQ/L Potassium Level 4.1 MEQ/L 3.9 MEQ/L Chloride Level 105 MEQ/L 104 MEQ/L Carbon Dioxide Level 27.1 MEQ/L 27.0 MEQ/L Anion Gap 8 MEQ/L 9 MEQ/L Estimat Glomerular Filtration Rate 21 ML/MIN 23 ML/MIN Microbiology Date/Time Source Procedure Growth Status 03/24/17 07:47 Blood Peripheral Aerobic Blood Culture - Preliminary NO GROWTH IN 1 DAY Resulted 03/24/17 07:47 Blood Peripheral Anaerobic Blood Culture - Preliminary NO GROWTH IN 1 DAY Resulted 03/24/17 07:35 Blood Peripheral Aerobic Blood Culture - Preliminary NO GROWTH IN 1 DAY Resulted 03/24/17 07:35 Blood Peripheral Anaerobic Blood Culture - Preliminary NO GROWTH IN 1 DAY Resulted Imaging L Last Impressions Chest X-Ray 03/23/17 0000 Signed Impressions: Service Date/Time: Thursday, March 23, 2017 17:40 - CONCLUSION: 1. Compensated cardiomegaly. 2. No significant interval change. Surendra Aparicio MD Ankle X-Ray 03/22/17 0000 Signed Impressions: Service Date/Time: Wednesday, March 22, 2017 11:55 - CONCLUSION: Soft tissue swelling. No acute bony injury Cruz Lopez MD Lower Extremity MRI 03/19/17 0000 Signed Impressions: Service Date/Time: Sunday, March 19, 2017 15:45 - CONCLUSION: Subcutaneous edema about the leg, more prominent medially than laterally and some edema within the anterior and posterior muscle groups. No drainable fluid collections seen. No signal abnormalities within the marrow of the osseous structures to suggest osteomyelitis. Lawrence Raya MD Renal Ultrasound 03/18/17 0000 Signed Impressions: Service Date/Time: Saturday, March 18, 2017 18:30 - CONCLUSION: Ultrasound appearance of the kidneys and urinary bladder within normal limits. Cruz Segura MD Tibia/Fibula X-Ray 03/17/172120 Signed Impressions: Service Date/Time: February 21:42 - CONCLUSION: Intact left tibia and fibula. No radiopaque foreign body. Cruz Segura MD Physical Exam CONSTITUTIONAL/GENERAL: This is a morbidly obese patient, in no apparent distress. TUBES/LINES/DRAINS: SKIN: No jaundice, rashes, or lesions Skin temperature appropriate. Not diaphoretic. CARDIOVASCULAR: Regular rate and rhythm without murmurs, gallops, or rubs. No JVD. Peripheral pulses symmetric. RESPIRATORY/CHEST: Symmetric, unlabored respirations. Clear to auscultation. Breath sounds very diminished bilaterally 2/2 habitus GASTROINTESTINAL: Abdomen soft, non-tender, quite distended. Bowel sounds present. MUSCULOSKELETAL: Extremities without clubbing, cyanosis, +2 BLE edema, tight + chronic BLE hyperpigmentation LLE with full thickness ulceration, poor granulations, o purulence no odor NEUROLOGICAL: Awake and alert. Motor and sensory grossly within normal limits. Follows commands. Clear speech. Moves all extremities. PSYCHIATRIC: No obvious anxiety/depression. no apparent hallucinations or other psychotic thought process. Assessment & Plan Remarks Probable venous insufficiency L medial maleous ulcer i the settings of chronic venous insufficiency - op clx + for MRSA and mixed enteric GNBs, ? anaerobs sp I+D stage IV CKD. Could be due to hypertensive nephrosclerosis. - improved creatinine New fever, SOB: resolved No e/o PNA on CXR REC's: OK to dc home cont abx at home will change to doxycyline and Augmentin 500 q 12 hrs dw case mngr Joana Leo MD Mar 25, 2017 15:27
[2017-03-25] MEDS ORDERED: AUGM500T7 PO (15:33)
[2017-03-25 16:00] VITALS: BP 182/103; PULSE 72; RESP 20; TEMP 98; O2SAT 97
[2017-03-25 20:00] VITALS: BP 165/90; PULSE 74; RESP 20; TEMP 97.7; O2SAT 95
[2017-03-25] MEDS: DOXYCYCLINE HYCLATE 100 MG TAB PO SCH (21:55)
[2017-03-25] MEDS: SODIUM CHLORIDE 0.9% FLUSH 10 ML FLUSH IV FLUSH SCH ×2 (21:56→22:01)
[2017-03-25] MEDS: AMOXICILLIN/CLAVULANATE K 500 MG TAB PO SCH (22:22)
[2017-03-26] VITALS: BP 155/88; PULSE 69; RESP 20; TEMP 98.3; O2SAT 97
[2017-03-26] MEDS: HEPARIN SODIUM - SQ 10,000 UNITS/ML VIAL SQ SCH ×2 (01:08→13:32)
[2017-03-26] MEDS: hydrALAZINE HCL 50 MG TAB PO SCH ×2 (05:17→13:33)
[2017-03-26 08:00] VITALS: BP 156/84; PULSE 73; RESP 18; TEMP 97.9; O2SAT 96
[2017-03-26 08:01] LABS: BICARBONATE 24.7 MEQ/L (21.0-32.0)
[2017-03-26] MEDS: amLODIPine BESYLATE 5 MG TAB PO SCH (08:36)
[2017-03-26] MEDS: SPIRONOLACTONE 25 MG TAB PO SCH (08:36)
[2017-03-26] MEDS: LACTULOSE SYRUP 20 GM/30 ML CUP PO SCH (08:36)
[2017-03-26] MEDS: cloNIDine HCL 0.1 MG TAB PO SCH (08:36)
[2017-03-26] MEDS: COLCHICINE 0.6 MG TAB PO SCH (08:37)
[2017-03-26] MEDS: ACETAMINOPHEN/HYDROcodone 325 MG/7.5 MG TAB PO PRN ×2 (08:37→15:16)
[2017-03-26] MEDS: CARVEDILOL 12.5 MG TAB PO SCH (08:37)
[2017-03-26] MEDS: DOXYCYCLINE HYCLATE 100 MG TAB PO SCH (08:37)
[2017-03-26] MEDS: AMOXICILLIN/CLAVULANATE K 500 MG TAB PO SCH (08:37)
--- NOTE | 2017-03-26 11:50 | HHI.NPPN ---
Subjective General Problems: Hypertension Renal Failure: Chronic, Acute Additional Remarks Patient is alert, no SOB, started eating better, no abd. pain. Review of Systems General Constitutional: Fatigue Objective Data Data Vital Signs Date Time Temp Pulse Resp B/P (MAP) Pulse Ox O2 Delivery O2 Flow Rate FiO2 03/26/17 08:00 97.9 73 18 156/84 (108) 96 03/26/17 00:00 98.3 69 20 155/88 (110) 97 03/25/17 20:00 97.7 74 20 165/90 (115) 95 03/25/17 16:00 98.0 72 20 182/103 (129) 97 03/25/17 12:00 97.5 73 21 133/73 (93) 96 -: 03/24/17 0735 03/26/17 0556 Physical Exam General Appearance: No Acute Distress, Comfortable, Obese Eyes Eye Exam: Pupils Equal, Pupils Reactive Ears & Nose Ears & Nose Exam: Nasal Mucosa [place] Throat Throat Exam: Oral Mucosa [place] & Moist Neck Neck Exam: Neck Supple Pulmonary Resp Exam: Breath Sounds Equal, Decreased Bases, Diminished Breath Sounds Cardiology CV Exam: Regular, Normal Sinus Rhythm Gastrointestinal/Abdomen GI Exam: Soft, Non-Tender, Bowel Sounds Present, Non-Distended Musculoskeletal MS Exam: Joints Intact Integumentary Skin Exam: Warm, Dry Extremeties Extremities Exam: Moderate Edema Neurologic Neuro Exam: Alert, Awake, Oriented, Explosive [employer]dn[employer] Equal Psychiatric Psych Exam: Appropriate Responses Assessment/Plan Discussed Condition With: Patient, Spouse Assessment Summary: NASH/Acute Renal Failure, Hypertension Problem List: (1) Renal insufficiency ICD Codes: N28.9 - Disorder of kidney and ureter, unspecified Status: Acute Plan: It appears he has renal impairment at baseline , baseline creatinine 2.2-2.7: Appears to have stage IV CKD. 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 ANCA is negative. Acute worsening of renal function likely due to rapid improvement of BP. Renal function is improving, although BUN is slightly higher He is non oliguric Oral fluid intake encouraged If continued improvement, renal biopsy will not be required Creatinine now 3.2. If D/C, will need Nephrology follow up. (2) Wound infection ICD Codes: T14.8 - Other injury of unspecified body region; L08.9 - Local infection of the skin and subcutaneous tissue, unspecified Status: Acute Plan: wound care provided, s/p I&D he has been febrile; continue antibiotics (3) Hypokalemia ICD Codes: E87.6 - Hypokalemia; N18.9 - Chronic kidney disease, unspecified Status: Acute Plan: Improved, on Spironolactone. PRA is not low, Aldosterone is still pending. (4) HTN (hypertension) ICD Codes: I10 - Essential (primary) hypertension Status: Chronic Plan: BP has improved On Spironolactone, amlodipine,coreg, and clonidine Needs treatment of BRYAN as outpatient: there will be about 3% decrease in BP with successful management of BRYAN with CPAP. Needs weight loss. Exercise and diet encouraged Problem Qualifiers (1) HTN (hypertension): Qualified Codes: I10 - Essential (primary) hypertension Aden Block MD Mar 26, 2017 11:50
[2017-03-26 12:00] VITALS: BP 152/74; PULSE 68; RESP 17; TEMP 98; O2SAT 96
--- NOTE | 2017-03-26 14:10 | HHI.PR ---
Subjective History of Present Illness I'm okay/reason go home Leg pain is in control No fever or chills Good appetite Offers no other is at bedside Vitals/Results Vital Signs Vital Signs Date Time Temp Pulse Resp B/P (MAP) Pulse Ox O2 Delivery O2 Flow Rate FiO2 03/26/17 12:00 98.0 68 17 152/74 (100) 96 03/26/17 08:00 97.9 73 18 156/84 (108) 96 03/26/17 00:00 98.3 69 20 155/88 (110) 97 03/25/17 20:00 97.7 74 20 165/90 (115) 95 03/25/17 16:00 98.0 72 20 182/103 (129) 97 CBC/BMP: 03/24/17 0735 03/26/17 0556 Lab Results Laboratory Tests Test 03/26/17 05:56 Blood Urea Nitrogen 47 MG/DL Creatinine 3.26 MG/DL Random Glucose 97 MG/DL Calcium Level 8.7 MG/DL Sodium Level 139 MEQ/L Potassium Level 4.0 MEQ/L Chloride Level 105 MEQ/L Carbon Dioxide Level 24.7 MEQ/L Anion Gap 9 MEQ/L Estimat Glomerular Filtration Rate 25 ML/MIN Physical Exam General General Appearance: No Acute Distress, Comfortable, Obese Eyes Eye Exam: Pupils Equal, Pupils Reactive, Sclera White Ears & Nose Ears & Nose Exam: Nasal Mucosa [place] Throat Throat Exam: Oral Mucosa [place] & Moist Neck Neck Exam: Neck Supple, Trachea Midline Pulmonary Resp Exam: Clear Bilaterally, Breath Sounds Equal, No Distress Cardiology CV Exam: Regular, Normal Sinus Rhythm Gastrointestinal/Abdomen GI Exam: Soft, Non-Tender, Bowel Sounds Present, Non-Distended Integumentary Skin Remarks Left lower extremity, ulcers stable, this appears clean, no drainage, no odor Extremeties Extremities Exam: Moderate Edema Neurologic Neuro Exam: Alert, Awake, Oriented, Speech Clear Psychiatric Psych Exam: Appropriate Responses VTE Prophylaxis VTE Prophylaxis Meds: Heparin Assessment/Plan Assessment/Plan Left leg with painful ulcer with a 5 cm round eschar medial left ankle Uncontrolled sleep apnea,refuses to wear the mask Morbid obesity Uncontrolled hypertension Acute kidney injury versus chronic kidney disease CKD stage IV Elevated blood glucose Hypokalemia Poss gout right ankle Chronic pedal Edema possible venous insufficiency Plan: S/P ID left leg wound 03/20 wound care MRSA, appreciate podiatry input Wound care ID input appreciated On by mouth Augmentin and doxycycline contact isolation recommended to lose weight needs to use CPAP appears motivated to lose weight BP control Can to current meds renal functioning with some improvement Nonoliguric instructed to avoid NSAIDs, control BP Monitor BP, avoid nephrotoxic agents Appreciate nephrology input-may need HD in the future Cleared by ID in renal for discharge DC home today Follow with PCP Follow with podiatry and renal see med reconciliation sheet See orders Discussed patient and his Gee Begum MD Mar 26, 2017 14:10
[2017-03-26] MEDS ORDERED: AUGM500T7 PO (14:16)
[2017-03-26] MEDS ORDERED: DOXY100T PO (14:16)
[2017-03-26] MEDS ORDERED: AMLO10 PO (14:16)
[2017-03-26] MEDS ORDERED: CARV12.5 PO (14:16)
[2017-03-26] MEDS ORDERED: HYDR-3800 PO (14:16)
[2017-03-26] MEDS ORDERED: FURO1TAB60 PO (14:16)
[2017-03-26] MEDS ORDERED: HYDR-3580 PO (14:16)
[2017-03-26] MEDS ORDERED: SPIR25 PO (14:16)
[2017-03-26] MEDS: SODIUM CHLORIDE 0.9% FLUSH 10 ML FLUSH IV FLUSH SCH (15:16)
[2017-03-27 07:52] LABS: MYELOPEROXIDASE LESS THAN 1.0 AI (<1.0); PROTEINASE-3 LESS THAN 1.0 AI (<1.0)
--- NOTE | 2017-03-28 12:59 | HHI.DS ---
Discharge Summary Admission Date Mar 17, 2017 at 23:15 Discharge Date: Mar 26, 2017 Admitting Diagnosis L leg wound infection; acute/crhonic kidney disease; hypokalemia (1) Hypertensive urgency ICD Codes: I16.0 - Hypertensive urgency Status: Acute (2) Wound cellulitis ICD Codes: L03.90 - Cellulitis, unspecified Status: Acute (3) Wound infection ICD Codes: T14.8 - Other injury of unspecified body region; L08.9 - Local infection of the skin and subcutaneous tissue, unspecified Status: Acute (4) Renal insufficiency ICD Codes: N28.9 - Disorder of kidney and ureter, unspecified Status: Acute (5) HTN (hypertension) ICD Codes: I10 - Essential (primary) hypertension Status: Chronic (6) Obesity ICD Codes: E66.9 - Obesity, unspecified Status: Chronic (7) Sleep apnea ICD Codes: G47.30 - Sleep apnea, unspecified Status: Chronic Procedures S/P ID left leg wound 03/20 CBC/BMP: 03/24/17 0735 03/26/17 0556 Significant Findings Laboratory Tests Test 03/26/17 05:56 Blood Urea Nitrogen 47 MG/DL (7-18) Creatinine 3.26 MG/DL (0.60-1.30) Estimat Glomerular Filtration Rate 25 ML/MIN (>89) Imaging Last Impressions Chest X-Ray 03/23/17 0000 Signed Impressions: Service Date/Time: Thursday, March 23, 2017 17:40 - CONCLUSION: 1. Compensated cardiomegaly. 2. No significant interval change. Surendra Aparicio MD Ankle X-Ray 03/22/17 0000 Signed Impressions: Service Date/Time: Wednesday, March 22, 2017 11:55 - CONCLUSION: Soft tissue swelling. No acute bony injury Cruz Lopez MD Lower Extremity MRI 03/19/17 0000 Signed Impressions: Service Date/Time: Sunday, March 19, 2017 15:45 - CONCLUSION: Subcutaneous edema about the leg, more prominent medially than laterally and some edema within the anterior and posterior muscle groups. No drainable fluid collections seen. No signal abnormalities within the marrow of the osseous structures to suggest osteomyelitis. Lawrence Raya MD Renal Ultrasound 03/18/17 0000 Signed Impressions: Service Date/Time: Saturday, March 18, 2017 18:30 - CONCLUSION: Ultrasound appearance of the kidneys and urinary bladder within normal limits. Cruz Segura MD Tibia/Fibula X-Ray 03/17/172120 Signed Impressions: Service Date/Time: February 21:42 - CONCLUSION: Intact left tibia and fibula. No radiopaque foreign body. Cruz Segura MD Hospital Course This is a pleasant 46-year-old obese black male who had been in his usual state of health up until approximately a month ago. 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 He gave no further details, but states that he has been putting some type of powder and cream on it. The wound progressed and was approximately 4 cm x 5 cm with a crusted scab covering the wound partially. It was open to air. It had a foul smell and looks like it has had some type of drainage in the past. The wound was cultured in the emergency room. Pt. was noted in acute on CKD. He does see his PCP at intervals , but has not had anyone look at this wound. The patient did have a low grade fever. His potassium level was 2.8. Left tib-fib x-ray showed no acute fracture. The patient continued to have some uncontrolled hypertension, otherwise he denied any shortness of breath. No chest pain. No nausea, no vomiting. No recent weight gain or weight loss. He denied any dizziness. He has been working his job up until this point. The patient's heart rate is noted to be 59 at the low, 88 at the high. There was no family present. The patient states he has been taking Ibuprofen at home for pain and fever. Was evaluated in the ED: DIAGNOSTIC DATA Sodium 139 potassium 2.8, chloride 103, carbon dioxide 29.4, amnion gap 7, BUN 39, creatinine 3.44, GFR 23, random glucose 135. C-reactive protein 0.88, calcium 8.7, lactic acid 0.9. PT/INR 0.9. Hematology WBC count 6.1, RBC 4.22, hemoglobin 12.6, hematocrit 37, platelet count 293, monocyte count 10.4, eosinophils 4.1. IMAGING STUDIES Showed tib-fib x-ray to have intact last tibia and fibula without a foreign body present. Pt. was admitted and during the course of the hospitalization, the following took place: Diagnoses Left leg with painful ulcer with a 5 cm round eschar medial left ankle Uncontrolled sleep apnea,refuses to wear the mask Morbid obesity Uncontrolled hypertension Acute kidney injury versus chronic kidney disease Elevated blood glucose Hypokalemia Poss gout right ankle Plan: Admitted to med surg, put on IVF, abx, ID consulted. Podiatry also consulted, who recommended ID. S/P ID left leg wound 03/[address] in [address] Appropriate pain management ordered. wound culture 03/20 + MRSA. Given Vanco contact isolation put in place ID following-changed Abx to PO -Zyvox and Levaquin continued febrile, new set of cultures done. Remained negative. Fevers tapering, improved. ID gave final PO recommendations . Pt. obese with snoring at night. Hx of sleep apnea, never got fitted for mask. recommended to lose weight needs to use CPAP, instructed to f/u as OP with PCP/pulm appeared motivated to lose weight BP poorly controlled meds adjusted, BP improved was noted in acute on CKD Nephrology evaluated. Work up done. instructed to avoid NSAIDs, control BP Monitored BP, avoided nephrotoxic agents Appreciate nephrology input-may need HD in the future Pt. educated at length. Motivated to make changes to protect kidneys C/O Right ankle pain, denied any trauma, possible gout uric acid 8.4 right ankle xray, soft tissue swelling Gave Colchicine 0.6 mg po daily x 3 days, pain improved PT ordered. DC Colchicine, right ankle pain improved continued with pain management PO [place] and IV morphine for severe pain was Constipated Bowel regimen in place given Lactulose and Mag citrate finally had 2 BMs Needed to inc activity PT evaluated and assisted OOB Encouraged to get out of bed and work with PT. Continued with Heparin for DVT prophylaxis Consulted case management for discharge planning, home health care, PT, possibly IV antibiotics Improving, no fever, renal fx slightly better Cleared for dc by ID Pt discharged home in stable condition. Pt Condition on Discharge: Stable Discharge Disposition: Discharge Home Discharge Instructions DIET: Follow Instructions for: Heart Healthy Diet Fluid Restrictions: 1600cc/day Activities you can perform: Regular-No Restrictions Other Activity Instructions: Daily dressing left lower extremity wound Follow up Referrals: Appointment for Follow Up - 3 Weeks with Aden Block MD Appointment for Follow Up - 2 Weeks with Stacey Escoto DPM Nephrology - 3 Weeks PCP Follow-up - 2 Weeks Podiatry - 2 Weeks New Medications: Amoxicillin-Clavulanate (Augmentin) 500-125 mg Tab 500 MG PO Q12HR for Infection for 7 Days, TAB 0 Refills Doxycycline Hyclate (Doxycycline Hyclate) 100 Mg Cap 100 MG PO BID for Infection for 7 Days, #14 CAP 0 Refills Furosemide (Lasix) 40 Mg Tab 40 MG PO DAILY for fluid retention, #30 TAB 0 Refills Amoxicillin-Clavulanate (Augmentin) 500-125 mg Tab 500 MG PO Q12HR for bacterial infection for 7 Days, #14 TAB Carvedilol (Coreg) 12.5 Mg Tab 25 MG PO Q12HR for hypertension for 30 Days, #120 TAB Doxycycline Hyclate (Doxycycline Hyclate) 100 Mg Tab 100 MG PO Q12HR for bacterial infection for 7 Days, #14 TAB Hydralazine HCl (Hydralazine HCl) 50 Mg Tablet 50 MG PO Q8HR for hypertension, #90 TAB Hydrocodone-Acetaminophen (Hydrocodone-Acetaminophen) 7.5-325 mg Tab 1 TAB PO Q4H PRN for PAIN SCALE 3 TO 5, #50 TAB Spironolactone (Aldactone) 25 Mg Tab 25 MG PO DAILY for hypertension, #30 TAB Continued Medications: Amlodipine (Norvasc) 10 Mg Tab 10 MG PO DAILY for Blood Pressure Management, #30 TAB 0 Refills (This prescription has been renewed) Discontinued Medications: Hydralazine (Hydralazine) 100 Mg Tab 25 MG PO Q8HR for Blood Pressure Management, TAB 0 Refills Take with meals Hydrochlorothiazide (Hydrochlorothiazide) 25 Mg Tab 25 MG PO DAILY, #30 TAB 0 Refills Arpita CazaresP Mar 28, 2017 12:59
== END 2017-03-26 16:08 | disposition home or self-care (01) | DRG 593 ==
LOC: NEPC 17:47 → NEDA 23:15 → N07B 03-18 01:00
PROVIDERS: ADMIT Specialist; ATTEND Specialist
PROC: 0HBNXZZ Excision of Left Foot Skin, External Approach (ICD-10-PCS; principal; 2017-03-20 16:37)
DX: L97.329 Non-pressure chronic ulcer of left ankle with unspecified severity (principal); L03.116 Cellulitis of left lower limb; N17.9 Acute kidney failure, unspecified; N18.4 Chronic kidney disease, stage 4 (severe); Z68.43 Body mass index [BMI] 50.0-59.9, adult; E87.6 Hypokalemia; E66.01 Morbid (severe) obesity due to excess calories; I16.0 Hypertensive urgency; G47.33 Obstructive sleep apnea (adult) (pediatric); I87.2 Venous insufficiency (chronic) (peripheral); D63.8 Anemia in other chronic diseases classified elsewhere; D63.1 Anemia in chronic kidney disease; B95.62 Methicillin resistant Staphylococcus aureus infection as the cause of diseases classified elsewhere; K59.00 Constipation, unspecified; M10.9 Gout, unspecified; I12.9 Hypertensive chronic kidney disease with stage 1 through stage 4 chronic kidney disease, or unspecified chronic kidney disease
CPT/HCPCS: 71010; 73590; 73600; 73718; 76775; 80048; 80053; 80069; 80202; 81001; 82088; 82570; 83036; 83520; 83605; 84132; 84156; 84165; 84244; 84550; 85025; 85027; 85610; 85730; 86021; 86038; 86140; 86160; 86317; 86335; 86403; 86803; 87015; 87040; 87070; 87077; 87102; 87116; 87147; 87176; 87186; 87205; 87206; 87340; 93923; 96365; 96375; J0330; J1644; J1885; J2270; J2405; J2543; J3010; J3370; J3480; J7030; J7040; J7050

== ENCOUNTER 2017-10-07 19:34 | Inpatient (IN) | payer OTHER ==
[2017-10-07] VITALS (8 sets, daily range): BP systolic 130–176; BP diastolic 65–97; PULSE 77–84; RESP 18–22; TEMP 98.1–99.7; O2SAT 97–100
[~2017-10-07] VITALS: Ht 175.3 cm; Wt 142.7 kg
[~2017-10-07 19:34] MED LIST changes: +AMLO10 PO; +AUGM500T7 PO; +CARV12.5 PO; -CLON.1 PO; +DOXY100C PO; +DOXY100T PO; +FURO1TAB60 PO; +HYDR-3580 PO; +HYDR-3800 PO; -METO25TA6 PO; -NIFE60TA8 PO; +SPIR25 PO
[2017-10-07] MEDS ORDERED: blood pressure pill (19:41)
[2017-10-07] MEDS ORDERED: ASPI81CH6 CHEW (19:41)
[2017-10-07] MEDS ORDERED: TRAM50TA PO (19:41)
[2017-10-07] MEDS ORDERED: PANTOPRAZOLE INJ 80 MG in SODIUM CHLORIDE 0.9% INJ 35 ML IV ONE (19:42)
[2017-10-07] MEDS ORDERED: SODIUM CHLOR 0.9% 1000 ML INJ 1,000 ML IV ONE (19:45)
[2017-10-07] MEDS ORDERED: LIDOCAINE HCL 1% 50 ML VIAL INFIL ONE (20:00)
[2017-10-07] MEDS: PANTOPRAZOLE INJ 80 MG in SODIUM CHLORIDE 0.9% INJ 100 ML IV SCH (20:12)
[2017-10-07 20:32] LABS: BICARBONATE 20.4 MEQ/L (21.0-32.0); CALCIUM 7.4 MG/DL (8.5-10.1); CREATININE 4.72 MG/DL (0.60-1.30)
[2017-10-07 20:35] LABS: CALCIUM-PROTEIN CORRECTED 8.5 MG/DL (8.5-10.1); TOTAL BILIRUBIN ADULT 0.6 MG/DL (0.2-1.0); TOTAL PROTEIN 5.2 GM/DL (6.4-8.2)
[2017-10-07] MEDS ORDERED: MORPHINE SULFATE 2 MG/ML SYRINGE IV PUSH ONE ×2 (20:45→22:30)
[2017-10-07] MEDS ORDERED: ONDANSETRON HCL 4 MG/2 ML VIAL IV PUSH ONE (20:45)
--- NOTE | 2017-10-07 20:47 | PD ---
HPI Chief Complaint: GI Complaint Time Seen by Provider: 19:39 Travel History International Travel<30 days: No Contact w/Intl Traveler<30days: No Traveled to known affect area: No History of Present Illness HPI 46-year-old male complains of abdominal pain and rectal bleeding. Patient was was at home when he started passing blood per rectum. Patient also complained abdominal pain at that time. EMS was called. Patient was found to be hypotensive with blood pressure in the 80s. IV was started and left upper chest. Patient was given normal saline solution 100 cc IV bolus prior to arrival. Upon arrival patient states that he does not have any abdominal pain. Patient denies any headache. Patient denies any chest pain or shortness of breath. Patient denies any dysuria frequency. Patient denies any fever chills. Patient has history chronic left leg ulcer with pain. Patient has been taking tramadol for pain. Patient states that he also takes over-the- counter Aleve for pain. Patient denies any history of GI bleed in the past. Patient denies any history of peptic ulcer. Patient is not on any blood thinner. Patient also on doxycycline for chronic left leg ulcer. On a scale of 1-10 the left leg pain is a 7. Patient states that he has a history of chronic kidney disease. Patient was seen by specialist for that in the past. PFSH Past Medical History Autoimmune Disease: No Blood Disorders: No Cancer: No Cardiovascular Problems: Yes Gastrointestinal Disorders: Yes (abdominal aneurysm) Genitourinary: No Headaches: Yes Hypertension: Yes Musculoskeletal: No Neurologic: Yes (headache) Psychiatric: No Respiratory: Yes Sleep Apnea: Yes Influenza Vaccination: No Past Surgical History Abdominal Surgery: Yes (abdominal aortic aneursym repair 2007) AICD: No Cardiac Surgery: No Ear Surgery: No Endocrine Surgery: No Eye Surgery: No Gynecologic Surgery: No Neurologic Surgery: No Pacemaker: No Thoracic Surgery: No Other Surgery: Yes Social History Alcohol Use: Yes (occ) Tobacco Use: No Substance Use: No Allergies-Medications (Allergen,Severity, Reaction): Coded Allergies: No Known Allergies (Verified Adverse Reaction, Unknown, 10/07/17) Uncoded Allergies: nka (Allergy, Unknown, 02/26/03) Reported Meds & Prescriptions Reported Meds & Active Scripts Active Doxycycline Hyclate 100 Mg Tab 100 Mg PO Q12HR 7 Days Reported Terazosin (Terazosin HCl) 1 Mg Cap 1 Mg PO HS Tramadol (Tramadol HCl) 50 Mg Tab 50 Mg PO Q8H PRN Aspirin Low Dose (Aspirin) 81 Mg Chew 81 Mg CHEW DAILY [blood pressure pill] Review of Systems General / Constitutional: No: Fever Eyes: No: Visual changes HENT: No: Headaches Cardiovascular: No: Chest Pain or Discomfort Respiratory: No: Shortness of Breath Gastrointestinal: Positive: Abdominal Pain, Hematochezia Genitourinary: No: Dysuria Musculoskeletal: Positive: Pain Skin: No Rash Neurologic: No: Weakness Psychiatric: No: Depression Endocrine: No: Polydipsia Hematologic/Lymphatic: No: Easy Bruising Physical Exam Narrative GENERAL: Well-nourished, well-developed patient. SKIN: Focused skin assessment warm/dry. HEAD: Normocephalic. EYES: No scleral icterus. No injection or drainage. NECK: Supple, trachea midline. No JVD or lymphadenopathy. CARDIOVASCULAR: Regular rate and rhythm without murmurs, gallops, or rubs. RESPIRATORY: Breath sounds equal bilaterally. No accessory muscle use. GASTROINTESTINAL: Abdomen soft, non-tender, nondistended. MUSCULOSKELETAL: Patient has a large ulcer lesion on left lower extremity. Good granulation tissue noted. No discharge noted. BACK: Nontender without obvious deformity. No CVA tenderness. Neurologic exam normal. Data Data Last Documented VS Vital Signs Date Time Temp Pulse Resp B/P (MAP) Pulse Ox O2 Delivery O2 Flow Rate FiO2 10/07/17 20:47 77 18 139/71 (93) 100 Nasal Cannula 2.00 10/07/17 19:47 98.1 Orders Orders Electrocardiogram (10/07/17 19:40) Complete Blood Count With Diff (10/07/17 19:40) Comprehensive Metabolic Panel (10/07/17 19:40) Prothrombin Time / Inr (Pt) (10/07/17 19:40) Act Partial Throm Time (Ptt) (10/07/17 19:40) Iv Access Insert/Monitor (10/07/17 19:40) Ecg Monitoring (10/07/17 19:40) Oximetry (10/07/17 19:40) Type And Screen (10/07/17 19:40) Sodium Chlor 0.9% 1000 Ml Inj (Ns 1000 M (10/07/17 19:45) Sodium Chloride 0.9... W/Pantoprazole In (10/07/17 19:42) Sodium Chloride 0.9... W/Pantoprazole In (10/07/17 19:42) Lidocaine 1% Inj (50 Ml) (Xylocaine 1% I (10/07/17 20:00) Morphine Inj (Morphine Inj) (10/07/17 20:45) Ondansetron Inj (Zofran Inj) (10/07/17 20:45) Ct Abd/Pel W/O Iv Contrast (10/07/17 20:53) Red Blood Cells (Rbc) (10/07/17 21:48) Blood Product Administration (10/07/17 21:48) Sodium Chlor 0.9% 250 Ml Inj (Ns 250 Ml (10/07/17 22:00) Furosemide Inj (Lasix Inj) (10/07/17 22:30) Morphine Inj (Morphine Inj) (10/07/17 22:30) Admit Order (Ed Use Only) (10/07/17 22:43) Calcium Gluconate Inj (Calcium Gluconate (10/07/17 23:00) Labs Laboratory Tests Test 10/07/17 20:00 10/07/17 20:31 10/07/17 20:40 Blood Urea Nitrogen 109 MG/DL Creatinine 4.72 MG/DL Random Glucose 112 MG/DL Total Protein 5.2 GM/DL Albumin 2.0 GM/DL Calcium Level 7.4 MG/DL Alkaline Phosphatase 39 U/L Aspartate Amino Transf (AST/SGOT) 22 U/L Alanine Aminotransferase (ALT/SGPT) 11 U/L Total Bilirubin 0.6 MG/DL Sodium Level 142 MEQ/L Potassium Level 5.5 MEQ/L Chloride Level 112 MEQ/L Carbon Dioxide Level 20.4 MEQ/L Anion Gap 10 MEQ/L Estimat Glomerular Filtration Rate 16 ML/MIN Protein Corrected Calcium 8.5 MG/DL White Blood Count 12.4 TH/MM3 Red Blood Count 1.58 MIL/MM3 Hemoglobin 4.5 GM/DL Hematocrit 13.8 % Mean Corpuscular Volume 87.4 FL Mean Corpuscular Hemoglobin 28.3 PG Mean Corpuscular Hemoglobin Concent 32.4 % Red Cell Distribution Width 15.9 % Platelet Count 265 TH/MM3 Mean Platelet Volume 8.7 FL Neutrophils (%) (Auto) 82.5 % Lymphocytes (%) (Auto) 8.8 % Monocytes (%) (Auto) 8.3 % Eosinophils (%) (Auto) 0.2 % Basophils (%) (Auto) 0.2 % Neutrophils # (Auto) 10.3 TH/MM3 Lymphocytes # (Auto) 1.1 TH/MM3 Monocytes # (Auto) 1.0 TH/MM3 Eosinophils # (Auto) 0.0 TH/MM3 Basophils # (Auto) 0.0 TH/MM3 CBC Comment DIFF FINAL Differential Comment Prothrombin Time 12.8 SEC Prothromb Time International Ratio 1.3 RATIO Activated Partial Thromboplast Time 26.6 SEC MDM Medical Decision Making Medical Screen Exam Complete: Yes Emergency Medical Condition: Yes Interpretation(s) 21:45 PM. CBC WBC 12.4. Hemoglobin 4.5 hematocrit 13.8. 82 neutrophil. Potassium 5.5. Slight hemolysis noted. BUN 109. Creatinine 4.72. GFR 16. Calcium 7.4. INR 1.3. Differential Diagnosis Differential diagnosis including GI bleed, vasovagal reaction, anemia, upper versus lower GI bleed. Narrative Course 46-year-old male with transient hypotension secondary to GI bleed. Protonix 40 mg IV. Protonix IV drip started. Normal saline solution 1 L IV bolus. Normal saline solution 100 cc an hour. Type and cross 4 units of blood and started transfusion. Morphine 2 mg IV. Zofran 4 mg IV. Calcium gluconate 1 g IV given. Procedures Procedure Narrative CENTRAL VENOUS LINE: The site was prepped with Betadine and sterilely draped. It was infiltrated with 1% lidocaine plain. The deep vein was cannulated using normal Seldinger technique. A triple lumen central line was placed in the right femoral vein site and secured with simple interrupted suture. The site was sterilely dressed. The patient tolerated the procedure well. Diagnosis Primary Impression: Severe anemia Additional Impressions: GI bleed Qualified Codes: K92.2 - Gastrointestinal hemorrhage, unspecified Acute kidney injury superimposed on chronic kidney disease Hypocalcemia Admitting Information Admitting Physician Requests: Miguel Gibbons MD Oct 07, 2017 20:47
[2017-10-07 21:06] LABS: AUTOMATED NEUTROPHIL # 10.3 TH/MM3 (1.8-7.7); BASOPHIL % 0.2 % (0.0-2.0); EOSINOPHIL % 0.2 % (0.0-4.0); LYMPH % 8.8 % (9.0-44.0); LYMPHOCYTE # 1.1 TH/MM3 (1.0-4.8); MEAN CELL VOLUME 87.4 FL (80.0-100.0); MEAN CORPUSCULAR HEMOGLOBIN 28.3 PG (27.0-34.0); MEAN CORPUSCULAR HGB CONC 32.4 % (32.0-36.0); MEAN PLATELET VOLUME 8.7 FL (7.0-11.0); MONO % 8.3 % (0.0-8.0); NEUT % 82.5 % (16.0-70.0); PLATELET COUNT 265 TH/MM3 (150-450); RED BLOOD COUNT 1.58 MIL/MM3 (4.50-5.90); RED CELL DISTRIBUTION WIDTH 15.9 % (11.6-17.2); WHITE BLOOD COUNT 12.4 TH/MM3 (4.0-11.0)
[2017-10-07 21:08] LABS: INTERNATIONAL NORMALIZED RATIO 1.3 RATIO; PROTHROMBIN TIME - PATIENT 12.8 SEC (9.8-11.6)
[2017-10-07 21:29] LABS: HEMATOCRIT 13.8 % (39.0-51.0); HEMOGLOBIN 4.5 GM/DL (13.0-17.0)
[2017-10-07] MEDS ORDERED: SODIUM CHLOR 0.9% 250 ML INJ 250 ML IV ONE (22:00)
[2017-10-07] MEDS ORDERED: FUROSEMIDE 20 MG/2 ML VIAL IV PUSH ONE (22:30)
--- NOTE | 2017-10-07 22:36 | RADRPT ---
EXAM DATE/TIME: 10/07/2017 21:19 [facility] COMPARISON: No previous studies available for comparison. INDICATIONS : Abdominal pain, blood in stool. ORAL CONTRAST: No oral contrast ingested. RADIATION DOSE: 33.47 CTDIvol (mGy) ; Patient body habitus MEDICAL HISTORY : Cardiovascular disease. Hypertension. SURGICAL HISTORY : Abdominal aortic aneurysm repair. ENCOUNTER: Initial ACUITY: 1 day PAIN SCALE: 5/10 LOCATION: abdomen,pelvis TECHNIQUE: Volumetric scanning of the abdomen and pelvis was performed. Using automated exposure control and ad justment of the mA and/or kV according to patient size, radiation dose was kept as low as reasonably achievable to obtain optimal diagnostic quality images. DICOM format image data is available electro nically for review and comparison. FINDINGS: LOWER LUNGS: The visualized lower lungs are clear. LIVER: Homogeneous density without lesion. There is no dilation of the biliary tree. No calcified gallston es. SPLEEN: Normal size without lesion. PANCREAS: Within normal limits. KIDNEYS: Normal in size and shape. There is no mass, stone, or hydronephrosis. ADRENAL GLANDS: The adrenal glands are prominent bilaterally likely reflecting some hypertrophy. Focal masses are not seen. VASCULAR: There is no aortic aneurysm. BOWEL/MESENTERY: The stomach, small bowel, and colon demonstrate no acute abnormality. There is no free intraperitone al air or fluid. The appendix appears normal. There are scattered colonic diverticula. Significant in flammatory change is not clearly seen. ABDOMINAL WALL: Within normal limits. RETROPERITONEUM: There is no lymphadenopathy. BLADDER: No wall thickening or mass. REPRODUCTIVE: Within normal limits. INGUINAL: There is no lymphadenopathy or hernia. There is a right femoral vein catheter in place. MUSCULOSKELETAL: Within normal limits for patient age. CONCLUSION: 1. No acute abnormality seen. 2. Colonic diverticula. Cruz Guadarrama MD on October 07, 2017 at 22:31 Board Certified Radiologist. This report was verified electronically.
[2017-10-07] MEDS ORDERED: TERA1CAP3 PO (22:48)
[2017-10-07] MEDS ORDERED: CIPR250T2 PO (22:48)
[2017-10-07] MEDS ORDERED: METO50TA PO (22:49)
[2017-10-07] MEDS ORDERED: ISOS20TA2 PO (22:49)
[2017-10-07] MEDS ORDERED: HYDR-3801 PO (22:49)
[2017-10-07] MEDS ORDERED: SPIR25TA PO (22:50)
[2017-10-07] MEDS ORDERED: SODIUM CHLOR 0.9% 1000 ML INJ 1,000 ML IV SCH (22:53)
[2017-10-07] MEDS ORDERED: SENNOSIDES 8.6 MG TAB PO PRN (23:00)
[2017-10-07] MEDS ORDERED: BISACODYL 10 MG SUPP RECTAL PRN (23:00)
[2017-10-07] MEDS ORDERED: SODIUM CHLORIDE 0.9% FLUSH 10 ML FLUSH IV FLUSH PRN (23:00)
[2017-10-07] MEDS ORDERED: traMADol HCL 50 MG TAB PO PRN (23:00)
[2017-10-07] MEDS ORDERED: MAGNESIUM HYDROXIDE SUSP 30 ML CUP PO PRN (23:00)
[2017-10-07] MEDS ORDERED: LACTULOSE SYRUP 20 GM/30 ML CUP PO PRN (23:00)
[2017-10-07] MEDS ORDERED: NALOXONE HCL 0.4 MG/ML AMP IV PUSH PRN (23:00)
[2017-10-07] MEDS ORDERED: CALCIUM GLUCONATE INJ 1 GM in DEXTROSE 5% IN WATER 100ML INJ 100 ML IV ONE ×2 (23:00)
--- NOTE | 2017-10-07 23:10 | HHI.HP ---
HPI Service [facility] Hospitalists Primary Care Physician Blayne Zavala M.D. Admission Diagnosis Severe anemia. GI bleed. Acute on chronic kidney disease. Chief Complaint: severe GI bleed with anemia and acute on chronic renal failure Travel History International Travel<30 Days: No Contact w/Intl Traveler <30 Da: No Traveled to Known Affected Are: No History of Present Illness 46-year-old male complains of abdominal pain and rectal bleeding. Patient was was at a viewing when he started passing blood per rectum. Patient also complained abdominal pain at that time. EMS was called. Patient was found to be hypotensive with blood pressure in the 80s. IV was started and left upper chest. Patient was given normal saline solution 100 cc IV bolus prior to arrival. Upon arrival patient states that he does not have any abdominal pain. Patient denies any headache. Patient denies any chest pain or shortness of breath. Patient denies any dysuria frequency. Patient denies any fever chills. Patient has history chronic left leg ulcer with pain. Patient has been taking tramadol for pain. Patient states that he also takes over-the- counter Aleve for pain. Patient denies any history of GI bleed in the past. Patient denies any history of peptic ulcer. Patient is not on any blood thinner. Patient also on doxycycline for chronic left leg ulcer. Patient states had surgery to left leg ulcer last week. On a scale of 1-10 the left leg pain is a 7. Patient states that he has a history of chronic kidney disease. Patient very poor historian was in hospital recently for anemia required blood transfusion and was told had kidney failure and heart failure does not know what work up was done but does have high blood pressure and is on high dose medication . I will hold them for now in view of the hypotension. History Review of Systems Gastrointestinal: COMPLAINS OF: Bloody stools, BRB per rectum, Nausea Past Family Social History Past Medical History CHF,anemia renal failure hypertension,chronic left lower extremity large ulcer Past Surgical History AAA repair surgery to left leg ulcer Reported Medications hydralazine 100 tid,spirolactone 25,isordil;20,metoprolol 50,terasin asa Allergies: Coded Allergies: No Known Allergies (Verified Adverse Reaction, Unknown, 10/07/17) Uncoded Allergies: nka (Allergy, Unknown, 02/26/03) Social History NS,ND Physical Exam Vital Signs Vital Signs Date Time Temp Pulse Resp B/P (MAP) Pulse Ox O2 Delivery O2 Flow Rate FiO2 10/07/17 20:47 77 18 139/71 (93) 100 Nasal Cannula 2.00 10/07/17 19:47 98.1 78 18 165/83 (110) 99 Room Air 10/07/17 19:44 99 Room Air 10/07/17 19:42 79 22 176/97 (123) 99 Physical Exam GENERAL: This is a well-nourished, well-developed patient, in no apparent distress. SKIN: No rashes, ecchymoses or lesions. Cool and dry.Large ulcer left lower extremity good granulation >2 cm HEAD: Atraumatic. Normocephalic. No temporal or scalp tenderness. EYES: Pupils equal round and reactive. Extraocular motions intact. No scleral icterus. No injection or drainage. ENT: Nose without bleeding, purulent drainage or septal hematoma. Throat without erythema, tonsillar hypertrophy or exudate. Uvula midline. Airway patent. NECK: Trachea midline. No JVD or lymphadenopathy. Supple, nontender, no meningeal signs. CARDIOVASCULAR: Regular rate and rhythm without murmurs, gallops, or rubs. RESPIRATORY: Clear to auscultation. Breath sounds equal bilaterally. No wheezes , rales, or rhonchi. GASTROINTESTINAL: Abdomen soft, mild-tender, nondistended. No hepato- splenomegaly, or palpable masses. No guarding. MUSCULOSKELETAL: Extremities without clubbing, cyanosis, or edema. No joint tenderness, effusion, or edema noted. No calf tenderness. Negative Homans sign bilaterally. NEUROLOGICAL: Awake and alert. Cranial nerves II through XII intact. Motor and sensory grossly within normal limits. Five out of 5 muscle strength in all muscle groups. Normal speech. Laboratory Laboratory Tests Test 10/07/17 20:00 10/07/17 20:31 10/07/17 20:40 Blood Urea Nitrogen 109 Creatinine 4.72 Random Glucose 112 Total Protein 5.2 Albumin 2.0 Calcium Level 7.4 Alkaline Phosphatase 39 Aspartate Amino Transf (AST/SGOT) 22 Alanine Aminotransferase (ALT/SGPT) 11 Total Bilirubin 0.6 Sodium Level 142 Potassium Level 5.5 Chloride Level 112 Carbon Dioxide Level 20.4 Anion Gap 10 Estimat Glomerular Filtration Rate 16 Protein Corrected Calcium 8.5 White Blood Count 12.4 Red Blood Count 1.58 Hemoglobin 4.5 Hematocrit 13.8 Mean Corpuscular Volume 87.4 Mean Corpuscular Hemoglobin 28.3 Mean Corpuscular Hemoglobin Concent 32.4 Red Cell Distribution Width 15.9 Platelet Count 265 Mean Platelet Volume 8.7 Neutrophils (%) (Auto) 82.5 Lymphocytes (%) (Auto) 8.8 Monocytes (%) (Auto) 8.3 Eosinophils (%) (Auto) 0.2 Basophils (%) (Auto) 0.2 Neutrophils # (Auto) 10.3 Lymphocytes # (Auto) 1.1 Monocytes # (Auto) 1.0 Eosinophils # (Auto) 0.0 Basophils # (Auto) 0.0 CBC Comment DIFF FINAL Differential Comment Prothrombin Time 12.8 Prothromb Time International Ratio 1.3 Activated Partial Thromboplast Time 26.6 Result Diagram: 10/07/17203010/07/171999 Imaging Last 24 hours Impressions Abdomen/Pelvis CT 10/07/172052 Signed Impressions: Service Date/Time: Saturday, October 07, 2017 21:19 - CONCLUSION: 1. No acute abnormality seen. 2. Colonic diverticula. Cruz Guadarrama MD Course in er started on blood transfusion with IV lasix Caprini VTE Risk Assessment Caprini VTE Risk Assessment: Mod/High Risk (score >= 2) Caprini Risk Assessment Model Point Value = 1 Point Value = 2 Point Value = 3 Point Value = 5 Age 41-60 Minor surgery BMI > 25 kg/m2 Swollen legs Varicose veins or History of unexplained or recurrent spontaneous Oral contraceptives or hormone replacement Sepsis (< 1 month) Serious lung disease, including pneumonia (< 1 month) Abnormal pulmonary function Acute myocardial infarction Congestive heart failure (< 1 month) History of inflammatory bowel disease Medical patient at bed rest Age 61-74 Arthroscopic surgery Major open surgery (> 45 min) Laparoscopic surgery (> 45 min) Malignancy Confined to bed (> 72 hours) Immobilizing plaster cast Central venous access Age >= 75 History of VTE Family history of VTE Factor V Leiden Prothrombin [id number] Lupus anticoagulant Anticardiolipin antibodies Elevated serum homocysteine Heparin-induced thrombocytopenia Other congenital or acquired thrombophilia Stroke (< 1 month) Elective arthroplasty Hip, pelvis, or leg fracture Acute spinal cord injury (< 1 month) Prophylaxis Regimen Total Risk Factor Score Risk Level Prophylaxis Regimen 0-1 Low Early ambulation 2 Moderate Order ONE of the following: *Sequential Compression Device (SCD) *Heparin 5000 units SQ BID 3-4 Higher Order ONE of the following medications: *Heparin 5000 units SQ TID *Enoxaparin/Lovenox 40 mg SQ daily (WT < 150 kg, CrCl > 30 mL/min) *Enoxaparin/Lovenox 30 mg SQ daily (WT < 150 kg, CrCl > 10-29 mL/min) *Enoxaparin/Lovenox 30 mg SQ BID (WT < 150 kg, CrCl > 30 mL/min) AND/OR *Sequential Compression Device (SCD) 5 or more Highest Order ONE of the following medications: *Heparin 5000 units SQ TID (Preferred with Epidurals) *Enoxaparin/Lovenox 40 mg SQ daily (WT < 150 kg, CrCl > 30 mL/min) *Enoxaparin/Lovenox 30 mg SQ daily (WT < 150 kg, CrCl > 10-29 mL/min) *Enoxaparin/Lovenox 30 mg SQ BID (WT < 150 kg, CrCl > 30 mL/min) AND *Sequential Compression Device (SCD) Assessment and Plan Problem List: (1) GI bleed ICD Codes: K92.2 - Gastrointestinal hemorrhage, unspecified Status: Acute Plan: hgb at 4 transfuse and follow up labs GI consult protonix drip (2) Severe anemia ICD Codes: D64.9 - Anemia, unspecified Status: Acute Plan: as above (3) Acute kidney injury superimposed on chronic kidney disease ICD Codes: N17.9 - Acute kidney failure, unspecified; N18.9 - Chronic kidney disease, unspecified Status: Acute Plan: will need to follow up with recent records will consult nephrology (4) Skin ulcer ICD Codes: L98.499 - Non-pressure chronic ulcer of skin of other sites with unspecified severity Plan: stable at present continue doxycline and cipro for now will need wound care to evaluate as well once more stable Assessment and Plan further plan as case develops Code Status full Discussed Condition With patient Physician Certification 2 Midnight Certification Type: Admission for Inpatient Services Order for Inpatient Services The services are ordered in accordance with Medicare regulations or non- Medicare payer requirements, as applicable. In the case of services not specified as inpatient-only, they are appropriately provided as inpatient services in accordance with the 2-midnight benchmark. Estimated LOS (days): 3 3 days is the estimated time the patient will need to remain in the hospital, assuming treatment plan goals are met and no additional complications. Post-Hospital Plan: Not yet determined Problem Qualifiers (1) GI bleed: Qualified Codes: K92.2 - Gastrointestinal hemorrhage, unspecified Gregory Pascual MD Oct 07, 2017 23:10
[2017-10-07] MEDS ORDERED: LIDOCAINE 2% JELLY 30 ML TUBE TOPICAL ONE (23:30)
[2017-10-08] VITALS (19 sets, daily range): BP systolic 152–193; BP diastolic 79–107; PULSE 70–90; RESP 12–28; TEMP 97.8–98.9; O2SAT 99–100
[2017-10-08] MEDS ORDERED: CHLORHEXIDINE GLUCONATE 2 % 1 PACK (2 CLOTHS)(extra cloths) TOPICAL PRN (00:30)
[2017-10-08] MEDS: MORPHINE SULFATE 2 MG/ML SYRINGE IV PRN ×5 (00:48→20:39)
[2017-10-08] MEDS: cloNIDine HCL 0.1 MG TAB PO PRN ×3 (00:49→20:39)
[2017-10-08] MEDS: CHLORHEXIDINE GLUCONATE 2 % 1 PACK (2 CLOTHS)(taper/protocol) TOPICAL SCH (04:00)
--- NOTE | 2017-10-08 08:35 | HHI.PR ---
Subjective Remarks sleepy. oriented. admits to using bc powder over last several days. says he saw black tarry stool. no abdomen pain. just weak. says he was placed on abx for "foul odor" coming from his chronic leg ulcer Objective Vitals oriented falls asleep easily heart reg lung cta abd s/nt ext left lower leg bandaged Vital Signs Date Time Temp Pulse Resp B/P (MAP) Pulse Ox O2 Delivery O2 Flow Rate FiO2 10/08/17 07:58 98.9 79 28 171/82 99 10/08/17 07:39 99 21 10/08/17 06:00 77 10/08/17 05:37 98.7 78 20 170/79 100 10/08/17 05:28 98.7 78 20 165/82 100 10/08/17 05:20 98.7 78 19 165/82 100 10/08/17 04:00 98.7 79 16 152/88 (109) 100 10/08/17 04:00 79 10/08/17 02:53 20 10/08/17 02:00 80 10/08/17 01:54 81 20 182/81 100 10/08/17 01:36 98.7 90 20 182/81 100 10/08/17 01:34 20 10/08/17 00:30 98.9 82 22 173/94 (120) 100 10/08/17 00:01 10/07/17 23:54 84 18 136/89 (105) 100 Nasal Cannula 2.00 10/07/17 23:34 99.0 80 20 139/65 (89) 97 Nasal Cannula 2.00 10/07/17 23:15 99.0 82 20 139/65 97 10/07/17 22:58 99.7 81 20 130/73 100 10/07/17 20:47 77 18 139/71 (93) 100 Nasal Cannula 2.00 10/07/17 19:47 98.1 78 18 165/83 (110) 99 Room Air 10/07/17 19:44 99 Room Air 10/07/17 19:42 79 22 176/97 (123) 99 10/08/17 10/08/17 10/09/17 14:59 22:59 06:59 Intake Total 460 ml Balance 460 ml Packed Cells 400 ml Blood Product IV Normal Saline Flush 60 ml Result Diagram: 10/07/17203010/07/171999 Imaging Last 24 hours Impressions Abdomen/Pelvis CT 10/07/172052 Signed Impressions: Service Date/Time: Saturday, October 07, 2017 21:19 - CONCLUSION: 1. No acute abnormality seen. 2. Colonic diverticula. Cruz Guadarrama MD A/P Problem List: (1) Acute blood loss anemia ICD Codes: D62 - Acute posthemorrhagic anemia Status: Acute Plan: 1. acute gib. acute blood loss anemia/symptomatic. pt was using goody powder. 2. acute/ckd 4 3. sleep apnea 4. chronic leg ulceration on abx for "foul odor" 5. htn pt getting 4 units prbc. recheck h/h. GI consulted. IV ppi. npo renal consulted for a/ckd wound care for leg ulceration. refused my evaluation of the ulcer this AM. he was placed on abx prior to admission. bp meds as needed. (2) Acute worsening of stage 4 chronic kidney disease ICD Codes: N28.9 - Disorder of kidney and ureter, unspecified; N18.4 - Chronic kidney disease, stage 4 (severe) Status: Acute (3) GI bleed ICD Codes: K92.2 - Gastrointestinal hemorrhage, unspecified Status: Acute Plan: hgb at 4 transfuse and follow up labs GI consult protonix drip (4) Skin ulcer ICD Codes: L98.499 - Non-pressure chronic ulcer of skin of other sites with unspecified severity Status: Chronic (5) Sleep apnea ICD Codes: G47.30 - Sleep apnea, unspecified Status: Chronic (6) HTN (hypertension) ICD Codes: I10 - Essential (primary) hypertension Status: Chronic Problem Qualifiers (1) GI bleed: Qualified Codes: K92.2 - Gastrointestinal hemorrhage, unspecified Francisco J Umanzor MD Oct 08, 2017 08:35
[2017-10-08] MEDS: DOXYCYCLINE HYCLATE 100 MG TAB PO SCH ×2 (09:00→20:38)
[2017-10-08] MEDS: SODIUM CHLORIDE 0.9% FLUSH 10 ML FLUSH IV FLUSH SCH ×2 (09:00→20:38)
[2017-10-08] MEDS: CIPROFLOXACIN 250 MG TAB PO SCH ×2 (09:00→20:39)
[2017-10-08] MEDS: ISOSORBIDE DINITRATE 20 MG TAB PO SCH ×3 (09:00→18:32)
[2017-10-08] MEDS: DOCUSATE SODIUM 50 MG/SENNA 8.6 MG TAB PO SCH ×2 (09:00→20:39)
--- NOTE | 2017-10-08 11:00 | PD.CONS ---
HPI Service Nephrology Consult Requested By Dr. Pascual Reason for Consult Acute on chronic renal failure. Anemia. Primary Care Physician Blayne Zavala M.D. History of Present Illness Patient is a 46 year old male with a past medical history of chronic kidney disease stage 4, Hypertension, sleep apnea, chronic left lower extremity leg ulcer, obesity, and CHF. Patient presented to the ED with abdominal pain and maroon stools. He was found to have a hemoglobin of 4.5. His blood pressure is elevated now but per records when EMS arrived he was found to be hypotensive with a SBP in the 80's. Nephrology is consulted for acute on chronic renal failure with a creatinine of 4.72 and potassium of 5.5. His baseline creatinine is at 2.5 to 3.0 and his drier attendant is Dr. Florez. So he has some acute worsening most likely from hypotension with blood loss. Also reports that he has been taking Aleve at home. CT of abdomen is noted to have kidney of normal size and shape. There is no mass, stone or hydronephrosis. UOP is documented at 750ml. (Zehra Dela Cruz) Review of Systems Respiratory: DENIES: Shortness of breath Cardiovascular: DENIES: Chest pain, Palpitations Gastrointestinal: COMPLAINS OF: Black stools, DENIES: Abdominal pain Musculoskeletal: COMPLAINS OF: Joint pain (Zehra Dela Cruz) Past Family Social History Allergies: Coded Allergies: No Known Allergies (Verified Allergy, Unknown, 10/07/17) Uncoded Allergies: nka (Allergy, Unknown, 02/26/03) Past Medical History CHF Anemia Renal failure Hypertension chronic left lower extremity large ulcer Obesity Past Surgical History AAA repair surgery to left leg ulcer Active Ordered Medications Current Medications Medications (Trade) Dose Ordered Sig/Stan Route Start Time Stop Time Status Last Admin Pantoprazole Sodium 80 mg/ Sodium Chloride 100 ml @ 10 mls/hr Q10H IV 10/07/17 19:42 10/07/17 20:12 Sodium Chloride 250 ml @ 15 mls/hr ONCE ONCE IV 10/07/17 22:00 10/08/17 14:39 10/07/17 22:51 (Cipro) 250 mg BID PO 10/08/17 09:00 (Vibratab) 100 mg Q12HR PO 4/21/18 09:00 (Isordil) 20 mg TID PO 10/08/17 09:00 (Ultram) 50 mg Q8H PRN PO 10/07/17 23:00 10/08/17 00:34 (NS Flush) 2 ml UNSCH PRN IV FLUSH 10/07/17 23:00 (NS Flush) 2 ml BID IV FLUSH 10/08/17 09:00 (Tylenol) 650 mg Q4H PRN PO 10/07/17 23:00 (Zofran Inj) 4 mg Q6H PRN IVP 10/07/17 23:00 (Narcan Inj) 0.4 mg UNSCH PRN IV PUSH 10/07/17 23:00 (Alyssa-Colace) 1 tab BID PO 10/08/17 09:00 (Milk Of Magnesia Liq) 30 ml Q12H PRN PO 10/07/17 23:00 (Senokot) 17.2 mg Q12H PRN PO 10/07/17 23:00 (Dulcolax Supp) 10 mg DAILY PRN RECTAL 10/07/17 23:00 (Lactulose Liq) 30 ml DAILY PRN PO 10/07/17 23:00 Miscellaneous Information Patient in critical care unit? Ass... [id number] .XX 10/08/17 00:30 (Chlorhexidine 2% Cloth) 3 pack DAILY@04 TOPICAL 10/08/17 04:00 10/12/17 04:01 10/08/17 04:00 (Chlorhexidine 2% Cloth) 3 pack UNSCH PRN TOPICAL 10/08/17 00:30 10/13/17 00:20 (Morphine Inj) 2 mg Q2H PRN IV 10/08/17 00:45 10/08/17 02:48 (Catapres) 0.1 mg Q4H PRN PO 10/08/17 09:00 Family History Mother with diabetes Social History non smoker rare ETOH use (Zehra Dela Cruz) Physical Exam Vital Signs Vital Signs Date Time Temp Pulse Resp B/P (MAP) Pulse Ox O2 Delivery O2 Flow Rate FiO2 10/08/17 10:00 78 10/08/17 08:00 70 10/08/17 07:58 98.9 79 28 171/82 99 10/08/17 07:39 99 21 10/08/17 06:00 77 10/08/17 05:37 98.7 78 20 170/79 100 10/08/17 05:28 98.7 78 20 165/82 100 10/08/17 05:20 98.7 78 19 165/82 100 10/08/17 04:00 98.7 79 16 152/88 (109) 100 10/08/17 04:00 79 10/08/17 02:53 20 10/08/17 02:00 80 10/08/17 01:54 81 20 182/81 100 10/08/17 01:36 98.7 90 20 182/81 100 10/08/17 01:34 20 10/08/17 00:30 98.9 82 22 173/94 (120) 100 10/08/17 00:01 10/07/17 23:54 84 18 136/89 (105) 100 Nasal Cannula 2.00 10/07/17 23:34 99.0 80 20 139/65 (89) 97 Nasal Cannula 2.00 10/07/17 23:15 99.0 82 20 139/65 97 10/07/17 22:58 99.7 81 20 130/73 100 10/07/17 20:47 77 18 139/71 (93) 100 Nasal Cannula 2.00 10/07/17 19:47 98.1 78 18 165/83 (110) 99 Room Air 10/07/17 19:44 99 Room Air 10/07/17 19:42 79 22 176/97 (123) 99 Physical Exam GENERAL: Patient is lethargic. Oriented. SKIN: Warm and dry. Left lower extremity ulcer HEAD: Normocephalic. EYES: No scleral icterus. No injection or drainage. NECK: Supple, trachea midline. No JVD or lymphadenopathy. CARDIOVASCULAR: Regular rate and rhythm without murmurs, gallops, or rubs. RESPIRATORY: Breath sounds equal bilaterally. No accessory muscle use. GASTROINTESTINAL: Abdomen soft, non-tender, nondistended. MUSCULOSKELETAL: No cyanosis, or edema. BACK: Nontender without obvious deformity. No CVA tenderness. Laboratory Laboratory Tests Test 10/07/17 20:00 10/07/17 20:31 10/07/17 20:40 10/08/17 00:20 Blood Urea Nitrogen 109 Creatinine 4.72 Random Glucose 112 Total Protein 5.2 Albumin 2.0 Calcium Level 7.4 Alkaline Phosphatase 39 Aspartate Amino Transf (AST/SGOT) 22 Alanine Aminotransferase (ALT/SGPT) 11 Total Bilirubin 0.6 Sodium Level 142 Potassium Level 5.5 Chloride Level 112 Carbon Dioxide Level 20.4 Anion Gap 10 Estimat Glomerular Filtration Rate 16 Protein Corrected Calcium 8.5 White Blood Count 12.4 Red Blood Count 1.58 Hemoglobin 4.5 Hematocrit 13.8 Mean Corpuscular Volume 87.4 Mean Corpuscular Hemoglobin 28.3 Mean Corpuscular Hemoglobin Concent 32.4 Red Cell Distribution Width 15.9 Platelet Count 265 Mean Platelet Volume 8.7 Neutrophils (%) (Auto) 82.5 Lymphocytes (%) (Auto) 8.8 Monocytes (%) (Auto) 8.3 Eosinophils (%) (Auto) 0.2 Basophils (%) (Auto) 0.2 Neutrophils # (Auto) 10.3 Lymphocytes # (Auto) 1.1 Monocytes # (Auto) 1.0 Eosinophils # (Auto) 0.0 Basophils # (Auto) 0.0 CBC Comment DIFF FINAL Differential Comment Prothrombin Time 12.8 Prothromb Time International Ratio 1.3 Activated Partial Thromboplast Time 26.6 Nasal Screen MRSA (PCR) MRSA NOT DETECTED (Zehra Dela Cruz) Result Diagram: 10/07/17203010/07/171999 Imaging Last Impressions Abdomen/Pelvis CT 10/07/172052 Signed Impressions: Service Date/Time: Saturday, October 07, 2017 21:19 - CONCLUSION: 1. No acute abnormality seen. 2. Colonic diverticula. Cruz Guadarrama MD (Zehra Dela Cruz) Assessment and Plan Problem List: (1) Acute worsening of stage 4 chronic kidney disease ICD Codes: N28.9 - Disorder of kidney and ureter, unspecified; N18.4 - Chronic kidney disease, stage 4 (severe) Status: Acute Plan: Acute kidney injury with admission creatinine of 4.72 and potassium of 5.5 from most likely hypotension with blood loss and NSAID use. Chronic kidney disease stage 4 from most likely uncontrolled hypertension. His baseline creatinine is at 2.5 to 3.0 and his drier attendant is Dr. Florez. CT of abdomen is noted to have kidney of normal size and shape. There is no mass, stone or hydronephrosis. UOP is documented at 750ml. Plan HGB 4.5 being transfused PRBC and protonix gtt is running Hypocalcemia: calcium gluconate given Check UA Avoid NSAIDs and other nephrotoxic agents. Monitor urinary output and BMP (2) Sleep apnea ICD Codes: G47.30 - Sleep apnea, unspecified Status: Chronic (3) HTN (hypertension) ICD Codes: I10 - Essential (primary) hypertension Status: Chronic Plan: On isosorbide and PRN Will monitor (4) Skin ulcer ICD Codes: L98.499 - Non-pressure chronic ulcer of skin of other sites with unspecified severity Status: Chronic Plan: Dressing on Wound care has been consulted (5) Acute blood loss anemia ICD Codes: D62 - Acute posthemorrhagic anemia Status: Acute Plan: GI consulted NPO Protonix gtt infusing. (Zehra Dela Cruz) Problem List: (1) Acute worsening of stage 4 chronic kidney disease ICD Codes: N28.9 - Disorder of kidney and ureter, unspecified; N18.4 - Chronic kidney disease, stage 4 (severe) Status: Acute Plan: Acute kidney injury with admission creatinine of 4.72 and potassium of 5.5 from most likely hypotension with blood loss and NSAID use. Chronic kidney disease stage 4 from most likely uncontrolled hypertension. His baseline creatinine is at 2.5 to 3.0 and his drier attendant is Dr. Florez. CT of abdomen is noted to have kidney of normal size and shape. There is no mass, stone or hydronephrosis. UOP is documented at 750ml. Plan HGB 4.5 being transfused PRBC and protonix gtt is running Hypocalcemia: calcium gluconate given Check UA Avoid NSAIDs and other nephrotoxic agents. Monitor urinary output and BMP. Patient seen and examined, agree with above. Chronic kidney disease and develop NASH. For transfusion, and follow the urine out put and BMP. (2) Sleep apnea ICD Codes: G47.30 - Sleep apnea, unspecified Status: Chronic (3) HTN (hypertension) ICD Codes: I10 - Essential (primary) hypertension Status: Chronic Plan: On isosorbide and PRN Will monitor (4) Skin ulcer ICD Codes: L98.499 - Non-pressure chronic ulcer of skin of other sites with unspecified severity Status: Chronic Plan: Dressing on Wound care has been consulted (5) Acute blood loss anemia ICD Codes: D62 - Acute posthemorrhagic anemia Status: Acute Plan: GI consulted NPO Protonix gtt infusing. (Aden Block MD) Zehra Dela Cruz Oct 08, 2017 11:00 Aden Block MD Oct 09, 2017 14:29
--- NOTE | 2017-10-08 11:20 | PD.CONS ---
HPI History of Present Illness This is a 46 year old M with PMH significant for HTN, CHF, anemia, and chronic renal impairment. Pt presented to the ER yesterday with complaints of rectal bleeding. Pt reports not feeling well all day yesterday and he did not have anything to eat. He went to a viewing and while he was at the viewing began to have maroon colored and dark stools. Denies associated abdominal pain, nausea, vomiting. Per ER notes pt was complaining of abdominal pain at the time the bleeding started, pt denies this. [facility] was called, and pt was found to be hypotensive on scene. H/H on admission was 4.5/13.8. Pt has had 3 U PRBCs transfused with a total of 4 ordered. Currently on Protonix gtt. States last BM was prior to transfer to the hospital. Denies history of GIB. Occasional ETOH. Denies smoking. Of note, takes daily Ibuprofen and Aleve for leg pain. Has never had EGD or colonoscopy. PFSH Past Medical History CKD HTN leg ulcer AAA Coded Allergies: No Known Allergies (Verified Allergy, Unknown, 10/07/17) Uncoded Allergies: nka (Allergy, Unknown, 02/26/03) Social History Occasional ETOH Denies smoking Review of Systems Gastrointestinal: COMPLAINS OF: Black stools, Bloody stools, Diarrhea, DENIES: Abdominal pain, Constipation, Nausea, Vomiting, Difficulty Swallowing, Odynophagia, Swelling of Abdomen, Heartburn, Hematemesis GI Exam Vitals I&O Vital Signs Date Time Temp Pulse Resp B/P (MAP) Pulse Ox O2 Delivery O2 Flow Rate FiO2 10/08/17 10:00 78 10/08/17 08:00 70 10/08/17 07:58 98.9 79 28 171/82 99 10/08/17 07:39 99 21 10/08/17 06:00 77 10/08/17 05:37 98.7 78 20 170/79 100 10/08/17 05:28 98.7 78 20 165/82 100 10/08/17 05:20 98.7 78 19 165/82 100 10/08/17 04:00 98.7 79 16 152/88 (109) 100 10/08/17 04:00 79 10/08/17 02:53 20 10/08/17 02:00 80 10/08/17 01:54 81 20 182/81 100 10/08/17 01:36 98.7 90 20 182/81 100 10/08/17 01:34 20 10/08/17 00:30 98.9 82 22 173/94 (120) 100 10/08/17 00:01 10/07/17 23:54 84 18 136/89 (105) 100 Nasal Cannula 2.00 10/07/17 23:34 99.0 80 20 139/65 (89) 97 Nasal Cannula 2.00 10/07/17 23:15 99.0 82 20 139/65 97 10/07/17 22:58 99.7 81 20 130/73 100 10/07/17 20:47 77 18 139/71 (93) 100 Nasal Cannula 2.00 10/07/17 19:47 98.1 78 18 165/83 (110) 99 Room Air 10/07/17 19:44 99 Room Air 10/07/17 19:42 79 22 176/97 (123) 99 I/O 10/07/17 10/07/17 10/07/17 10/08/17 10/08/17 10/08/17 07:00 15:00 23:00 07:00 15:00 23:00 Intake Total 2060 ml 1010 ml 460 ml Output Total 750 ml Balance 2060 ml 260 ml 460 ml Intake Oral 120 ml IV Total 2035 ml Packed Cells 800 ml 400 ml Blood Product IV Normal Saline Flush 25 ml 90 ml 60 ml Output Urine Total 750 ml # Voids 1 # Bowel Movements 0 Imaging Last Impressions Abdomen/Pelvis CT 10/07/172052 Signed Impressions: Service Date/Time: Saturday, October 07, 2017 21:19 - CONCLUSION: 1. No acute abnormality seen. 2. Colonic diverticula. Cruz Guadarrama MD Laboratory Test 10/07/17 20:00 10/07/17 20:31 10/07/17 20:40 10/08/17 00:20 Blood Urea Nitrogen 109 MG/DL Creatinine 4.72 MG/DL Random Glucose 112 MG/DL Total Protein 5.2 GM/DL Albumin 2.0 GM/DL Calcium Level 7.4 MG/DL Alkaline Phosphatase 39 U/L Aspartate Amino Transf (AST/SGOT) 22 U/L Alanine Aminotransferase (ALT/SGPT) 11 U/L Total Bilirubin 0.6 MG/DL Sodium Level 142 MEQ/L Potassium Level 5.5 MEQ/L Chloride Level 112 MEQ/L Carbon Dioxide Level 20.4 MEQ/L Anion Gap 10 MEQ/L Estimat Glomerular Filtration Rate 16 ML/MIN Protein Corrected Calcium 8.5 MG/DL White Blood Count 12.4 TH/MM3 Red Blood Count 1.58 MIL/MM3 Hemoglobin 4.5 GM/DL Hematocrit 13.8 % Mean Corpuscular Volume 87.4 FL Mean Corpuscular Hemoglobin 28.3 PG Mean Corpuscular Hemoglobin Concent 32.4 % Red Cell Distribution Width 15.9 % Platelet Count 265 TH/MM3 Mean Platelet Volume 8.7 FL Neutrophils (%) (Auto) 82.5 % Lymphocytes (%) (Auto) 8.8 % Monocytes (%) (Auto) 8.3 % Eosinophils (%) (Auto) 0.2 % Basophils (%) (Auto) 0.2 % Neutrophils # (Auto) 10.3 TH/MM3 Lymphocytes # (Auto) 1.1 TH/MM3 Monocytes # (Auto) 1.0 TH/MM3 Eosinophils # (Auto) 0.0 TH/MM3 Basophils # (Auto) 0.0 TH/MM3 CBC Comment DIFF FINAL Differential Comment Prothrombin Time 12.8 SEC Prothromb Time International Ratio 1.3 RATIO Activated Partial Thromboplast Time 26.6 SEC Nasal Screen MRSA (PCR) MRSA NOT DETECTED Physical Examination HEENT: Normocephalic; atraumatic CHEST: Even/unlabored CARDIAC: RRR ABDOMEN: Obese, soft, nontender, bowel sounds active STAMP REDEMPTION CLERK: No focal deficits; alert and oriented times three. Assessment and Plan Plan Assessment: - Anemia with reports of rectal bleeding as per HPI Reports black and maroon colored stools that began yesterday while at a viewing. Last BM was prior to transfer. H/H on admission 4.5/13.8. Denies history of GIB. Has never had EGD or colonoscopy. Of note, has been taking daily Ibuprofen and Aleve for leg pain. Occasional ETOH. - CKD- GFR 16. Hyperkalemia- K+ 5.5 - High risk for GI procedures- history of AAA repair Plan: - EGD today- Discussed with Dr. Leon - Keep NPO - Protonix gtt - Monitor H/H - Transfuse per [facility] - Possible colonoscopy depending on findings - Further recommendations based on clinical course and results of above Pt has been seen and examined by myself and Dr. Leon and this note is written on his behalf Beth Candelaria Oct 08, 2017 11:20
[2017-10-08] MEDS ORDERED: LACTATED RINGER'S 1000 ML INJ 1,000 ML IV ONE (12:00)
[2017-10-08] MEDS ORDERED: ROCURONIUM INJ 50 MG/5 ML SYRINGE IV PUSH ONE (12:00)
[2017-10-08] MEDS ORDERED: PROPOFOL 200 MG/20 ML AMP IV ONE (12:00)
[2017-10-08 12:03] LABS: AUTOMATED NEUTROPHIL # 14.2 TH/MM3 (1.8-7.7); BASOPHIL % 0.2 % (0.0-2.0); EOSINOPHIL # 0.1 TH/MM3 (0-0.4); EOSINOPHIL % 0.7 % (0.0-4.0); LYMPH % 7.5 % (9.0-44.0); LYMPHOCYTE # 1.3 TH/MM3 (1.0-4.8); MEAN CORPUSCULAR HEMOGLOBIN 28.4 PG (27.0-34.0); MEAN CORPUSCULAR HGB CONC 33.5 % (32.0-36.0); MEAN PLATELET VOLUME 9.1 FL (7.0-11.0); MONO % 8.5 % (0.0-8.0); MONOCYTE # 1.4 TH/MM3 (0-0.9); NEUT % 83.1 % (16.0-70.0); PLATELET COUNT 184 TH/MM3 (150-450); RED BLOOD COUNT 2.26 MIL/MM3 (4.50-5.90); RED CELL DISTRIBUTION WIDTH 16.9 % (11.6-17.2); WHITE BLOOD COUNT 17.1 TH/MM3 (4.0-11.0)
[2017-10-08 12:08] LABS: HEMATOCRIT 19.2 % (39.0-51.0); HEMOGLOBIN 6.4 GM/DL (13.0-17.0)
[2017-10-08] MEDS: PANTOPRAZOLE INJ 80 MG in SODIUM CHLORIDE 0.9% INJ 100 ML IV SCH ×2 (12:27→22:44)
[2017-10-08 12:39] LABS: ALKALINE PHOSPHATASE 31 U/L (45-117); ALT (GPT) 8 U/L (12-78); AST (GOT) 12 U/L (15-37); BICARBONATE 19.6 MEQ/L (21.0-32.0); BLOOD UREA NITROGEN 124 MG/DL (7-18); CALCIUM 8.1 MG/DL (8.5-10.1); CHLORIDE 111 MEQ/L (98-107); CREATININE 4.73 MG/DL (0.60-1.30); GLOMERULAR FILTRATION RATE 16 ML/MIN (>89); GLUCOSE,RANDOM 96 MG/DL (74-106); SODIUM (NA) 142 MEQ/L (136-145); TOTAL BILIRUBIN ADULT 0.5 MG/DL (0.2-1.0)
[2017-10-08 13:07] LABS: BANDS 6 % (0-6); LYMPHOCYTES 10 % (9-44); MONOCYTES 3 % (0-8); NEUTROPHIL # MANUAL DIFF 14.9 TH/MM3 (1.8-7.7); POLYS (SEG NEUTROPHILS) 81 % (16-70)
[2017-10-08 13:08] LABS: BURR CELLS 1+ (NORMAL)
[2017-10-08] MEDS ORDERED: SUGAMMADEX SODIUM 200 MG/2 ML VIAL IV PUSH ONE (13:13)
[2017-10-08] MEDS ORDERED: EPINEPHrine HCL (1:10,000) 1 MG/10 ML SYRINGE OTHER ONE (14:33)
[2017-10-08] MEDS ORDERED: DO NOT ADM ANY ANTICOAGULANT DRUGS PRN (15:30)
--- NOTE | 2017-10-08 18:23 | EKG ---
Date Performed: 10/07/2017 Time Performed: 19:44:02 PTAGE: 46 years EKG: Sinus rhythm NONSPECIFIC T-WAVE ABNORMALITY Compared to previous tracing, T-wave abnormality improved BORDERLINE ECG PREVIOUS TRACING : 08/25/2016 20.07 DOCTOR: Alonzo Yanez Interpretating Date/Time 10/08/2017 18:22:18
[2017-10-08 20:35] LABS: HEMATOCRIT 23.5 % (39.0-51.0); HEMOGLOBIN 7.9 GM/DL (13.0-17.0)
[2017-10-08] MEDS: diphenhydrAMINE HCL 50 MG/ML VIAL IV PRN (20:39)
[2017-10-09] VITALS (18 sets, daily range): BP systolic 133–193; BP diastolic 69–114; PULSE 70–83; RESP 10–25; TEMP 97.8–98.7; O2SAT 95–100
[2017-10-09] MEDS: CHLORHEXIDINE GLUCONATE 2 % 1 PACK (2 CLOTHS)(taper/protocol) TOPICAL SCH (00:36)
[2017-10-09] MEDS: MORPHINE SULFATE 2 MG/ML SYRINGE IV PRN ×9 (01:44→22:14)
[2017-10-09 05:24] LABS: AUTOMATED NEUTROPHIL # 12.6 TH/MM3 (1.8-7.7); BASOPHIL # 0.1 TH/MM3 (0-0.2); BASOPHIL % 0.3 % (0.0-2.0); EOSINOPHIL # 0.3 TH/MM3 (0-0.4); EOSINOPHIL % 1.9 % (0.0-4.0); HEMATOCRIT 22.8 % (39.0-51.0); HEMOGLOBIN 7.8 GM/DL (13.0-17.0); LYMPH % 9.5 % (9.0-44.0); LYMPHOCYTE # 1.5 TH/MM3 (1.0-4.8); MEAN CELL VOLUME 85.8 FL (80.0-100.0); MEAN CORPUSCULAR HEMOGLOBIN 29.3 PG (27.0-34.0); MEAN CORPUSCULAR HGB CONC 34.2 % (32.0-36.0); MONO % 7.3 % (0.0-8.0); MONOCYTE # 1.1 TH/MM3 (0-0.9); PLATELET COUNT 180 TH/MM3 (150-450); RED BLOOD COUNT 2.66 MIL/MM3 (4.50-5.90); RED CELL DISTRIBUTION WIDTH 17.2 % (11.6-17.2); WHITE BLOOD COUNT 15.6 TH/MM3 (4.0-11.0)
[2017-10-09 05:44] LABS: PHOSPHORUS 5.7 MG/DL (2.5-4.9)
--- NOTE | 2017-10-09 08:04 | HHI.PR ---
Subjective Remarks asking for food. Objective Vitals heart reg lung cta abd s/nt ext left leg bandaged. Vital Signs Date Time Temp Pulse Resp B/P (MAP) Pulse Ox O2 Delivery O2 Flow Rate FiO2 10/09/17 06:00 78 10/09/17 04:00 75 10/09/17 04:00 98.5 75 25 175/94 (121) 100 10/09/17 02:00 75 10/09/17 00:00 98.7 74 11 183/89 (120) 100 10/09/17 00:00 74 10/08/17 22:00 78 10/08/17 20:00 98.4 76 21 176/105 (128) 99 10/08/17 20:00 76 10/08/17 18:00 79 10/08/17 16:00 97.9 82 26 179/102 (127) 99 10/08/17 16:00 82 10/08/17 15:30 82 22 153/82 (105) 100 Nasal Cannula 4 10/08/17 15:15 82 22 162/86 (111) 100 Nasal Cannula 4 10/08/17 15:00 74 22 159/80 (106) 100 Simple Mask 8 10/08/17 14:48 97.6 75 22 164/83 (110) 100 Simple Mask 8 10/08/17 13:28 97.8 74 18 193/94 99 10/08/17 12:45 20 10/08/17 12:00 98.3 77 27 173/107 (129) 99 10/08/17 12:00 70 10/08/17 10:00 78 Result Diagram: 10/09/17 0430 10/08/17 1112 Imaging Last 24 hours Impressions Abdomen/Pelvis CT 10/07/172052 Signed Impressions: Service Date/Time: Saturday, October 07, 2017 21:19 - CONCLUSION: 1. No acute abnormality seen. 2. Colonic diverticula. Cruz Guadarrama MD A/P Problem List: (1) Acute blood loss anemia ICD Codes: D62 - Acute posthemorrhagic anemia Status: Acute Plan: 1. acute gib. acute blood loss anemia/symptomatic. pt was using goody powder. egd 10/08 gastric ulcers..epi/clip per RN. pending report. s/p 6 units prbc 2. acute/ckd 4 3. sleep apnea 4. chronic leg ulceration on abx for "foul odor" 5. htn iv ppi. diet per GI. ivf while npo renal consulted for a/ckd wound care for leg ulceration. cx pending he was placed on abx prior to admission. bp meds as needed. unable to give pharmacological dvt prophylaxis due to bleeding. (2) Acute worsening of stage 4 chronic kidney disease ICD Codes: N28.9 - Disorder of kidney and ureter, unspecified; N18.4 - Chronic kidney disease, stage 4 (severe) Status: Acute (3) GI bleed ICD Codes: K92.2 - Gastrointestinal hemorrhage, unspecified Status: Acute Plan: hgb at 4 transfuse and follow up labs GI consult protonix drip (4) Skin ulcer ICD Codes: L98.499 - Non-pressure chronic ulcer of skin of other sites with unspecified severity Status: Chronic (5) Sleep apnea ICD Codes: G47.30 - Sleep apnea, unspecified Status: Chronic (6) HTN (hypertension) ICD Codes: I10 - Essential (primary) hypertension Status: Chronic Problem Qualifiers (1) GI bleed: Qualified Codes: K92.2 - Gastrointestinal hemorrhage, unspecified Francisco J Umanzor MD Oct 09, 2017 08:04
[2017-10-09] MEDS: ISOSORBIDE DINITRATE 20 MG TAB PO SCH ×3 (08:51→17:57)
[2017-10-09] MEDS: CIPROFLOXACIN 250 MG TAB PO SCH ×2 (08:51→23:09)
[2017-10-09] MEDS: PANTOPRAZOLE INJ 80 MG in SODIUM CHLORIDE 0.9% INJ 100 ML IV SCH (08:51)
[2017-10-09] MEDS: DOXYCYCLINE HYCLATE 100 MG TAB PO SCH ×2 (08:51→23:10)
[2017-10-09] MEDS: SODIUM CHLORIDE 0.9% FLUSH 10 ML FLUSH IV FLUSH SCH ×2 (08:52→22:15)
[2017-10-09] MEDS: DOCUSATE SODIUM 50 MG/SENNA 8.6 MG TAB PO SCH ×2 (08:52→19:58)
[2017-10-09] MEDS: SODIUM CHLOR 0.9% 1000 ML INJ 1,000 ML IV SCH ×2 (08:55→18:00)
[2017-10-09] MEDS: cloNIDine HCL 0.1 MG TAB PO PRN (09:31)
--- NOTE | 2017-10-09 11:24 | HHI.GIFU ---
Subjective Remarks Pt resting in bed, friend at bedside Pt denies BM since EGD yesterday Denies nausea, vomiting, abdominal pain States he is hungry (Beth Candelaria) Objective Vitals I&O Vital Signs Date Time Temp Pulse Resp B/P (MAP) Pulse Ox O2 Delivery O2 Flow Rate FiO2 10/09/17 06:00 78 10/09/17 04:00 75 10/09/17 04:00 98.5 75 25 175/94 (121) 100 10/09/17 02:00 75 10/09/17 00:00 98.7 74 11 183/89 (120) 100 10/09/17 00:00 74 10/08/17 22:00 78 10/08/17 20:00 98.4 76 21 176/105 (128) 99 10/08/17 20:00 76 10/08/17 18:00 79 10/08/17 16:00 97.9 82 26 179/102 (127) 99 10/08/17 16:00 82 10/08/17 15:30 82 22 153/82 (105) 100 Nasal Cannula 4 10/08/17 15:15 82 22 162/86 (111) 100 Nasal Cannula 4 10/08/17 15:00 74 22 159/80 (106) 100 Simple Mask 8 10/08/17 14:48 97.6 75 22 164/83 (110) 100 Simple Mask 8 10/08/17 13:28 97.8 74 18 193/94 99 10/08/17 12:45 20 10/08/17 12:00 98.3 77 27 173/107 (129) 99 10/08/17 12:00 70 I/O 10/08/17 10/08/17 10/08/17 10/09/17 10/09/17 10/09/17 07:00 15:00 23:00 07:00 15:00 23:00 Intake Total 1010 ml 1080 ml 1075 ml 75.5 ml Output Total 750 ml 550 ml 650 ml Balance 260 ml 1080 ml 525 ml -574.5 ml Intake Oral 120 ml 120 ml IV Total 100 ml 100 ml 75.5 ml Packed Cells 800 ml 800 ml 800 ml Blood Product IV Normal Saline Flush 90 ml 80 ml 55 ml Other 100 ml Output Urine Total 750 ml 550 ml 650 ml # Voids 1 # Bowel Movements 0 3 3 Laboratory Laboratory Tests Test 10/08/17 20:15 10/09/17 04:30 Hemoglobin 7.9 7.8 Hematocrit 23.5 22.8 White Blood Count 15.6 Red Blood Count 2.66 Mean Corpuscular Volume 85.8 Mean Corpuscular Hemoglobin 29.3 Mean Corpuscular Hemoglobin Concent 34.2 Red Cell Distribution Width 17.2 Platelet Count 180 Mean Platelet Volume 9.0 Neutrophils (%) (Auto) 81.0 Lymphocytes (%) (Auto) 9.5 Monocytes (%) (Auto) 7.3 Eosinophils (%) (Auto) 1.9 Basophils (%) (Auto) 0.3 Neutrophils # (Auto) 12.6 Lymphocytes # (Auto) 1.5 Monocytes # (Auto) 1.1 Eosinophils # (Auto) 0.3 Basophils # (Auto) 0.1 CBC Comment DIFF FINAL Differential Comment Phosphorus Level 5.7 25-Hydroxy Vitamin D Total 21.1 Imaging Last Impressions Abdomen/Pelvis CT 10/07/172052 Signed Impressions: Service Date/Time: Tuesday, October 07, 2017 21:19 - CONCLUSION: 1. No acute abnormality seen. 2. Colonic diverticula. Cruz Guadarrama MD Physical Exam HEENT: Normocephalic; atraumatic CHEST: Even/unlabored CARDIAC: RRR ABDOMEN: Distended, soft, nontender, bowel sounds acitve ROCK PICKER: No focal deficits; alert and oriented times three. (Beth Candelaria) Assessment and Plan Plan Assessment: - Anemia with reports of rectal bleeding as per HPI Reports black and maroon colored stools that began yesterday while at a viewing. Last BM was prior to transfer. H/H on admission 4.5/13.8. Denies history of GIB. Has never had EGD or colonoscopy. Of note, has been taking daily Ibuprofen and Aleve for leg pain. Occasional ETOH. - CKD- GFR 16. Hyperkalemia- K+ 5.5 - High risk for GI procedures- history of AAA repair (10/09) --> S/P EGD (10/08) --> Gastritis with gastric ulcer with visible vessel- Endoclipping with epi injection. Pt received 6 U of PRBCs total yesterday, only on following EGD. Denies BM since EGD. Denies nausea, vomiting, abdominal pain. H/H stable over night currently 7.8/22.8 Plan: - OK to downgrade to normal medical floor from GI perspective - DC Protonix gtt - Protonix PO BID - Clear liquid diet - Monitor H/H - Transfuse as needed - Notify GI if any continued bleeding - Further recommendations based on clinical course Pt has been seen and examined by myself and Dr. Nino and this note is written on his behalf (Beth Candelaria) Physician Comments Patient seen and examined Agree with above Continue with current supportive care Monitor labs If all is stable tomorrow may be we can advance his diet Patient will need an EGD in 2 months Follow-up with GI post discharge Avoid NSAIDs and aspirin and anticoagulation Continue PPI (Jaden Nino MD) Beth Candelaria Oct 09, 2017 11:24 Jaden Nino MD Oct 09, 2017 21:02
[2017-10-09] MEDS: METOPROLOL TARTRATE 25 MG TAB PO SCH ×2 (11:46→19:58)
--- NOTE | 2017-10-09 12:17 | HHI.NPPN ---
Subjective General Problems: Anemia, Edema, Hypertension Renal Failure: Chronic, Stage IV History of Present Illness 46 year old male with a past medical history of chronic kidney disease stage 4, Hypertension, sleep apnea, chronic left lower extremity leg ulcer, obesity, and CHF. Patient presented to the ED with abdominal pain and maroon stools. He was found to have a hemoglobin of 4.5. His blood pressure is elevated now but per records when EMS arrived he was found to be hypotensive with a SBP in the 80 's. Nephrology is consulted for acute on chronic renal failure with a creatinine of 4.72 and potassium of 5.5. His baseline creatinine is at 2.5 to 3.0 and his video producer is Dr. Florez. Additional Remarks Patient is alert, mild abd. pain, no SOB, not in distress. Review of Systems General Constitutional: Fatigue Cardiovascular Cardiac: Edema Gastrointestinal Gastrointestinal: Abdominal Pain, Nausea & Vomiting Objective Data Data 10/09/17 10/10/17 19:00 07:00 Intake Total 238 ml Balance 238 ml IV Total 238 ml Vital Signs Date Time Temp Pulse Resp B/P (MAP) Pulse Ox O2 Delivery O2 Flow Rate FiO2 10/09/17 11:48 16 10/09/17 06:00 78 10/09/17 04:00 75 10/09/17 04:00 98.5 75 25 175/94 (121) 100 10/09/17 02:00 75 10/09/17 00:00 98.7 74 11 183/89 (120) 100 10/09/17 00:00 74 10/08/17 22:00 78 10/08/17 20:00 98.4 76 21 176/105 (128) 99 10/08/17 20:00 76 10/08/17 18:00 79 10/08/17 16:00 97.9 82 26 179/102 (127) 99 10/08/17 16:00 82 10/08/17 15:30 82 22 153/82 (105) 100 Nasal Cannula 4 10/08/17 15:15 82 22 162/86 (111) 100 Nasal Cannula 4 10/08/17 15:00 74 22 159/80 (106) 100 Simple Mask 8 10/08/17 14:48 97.6 75 22 164/83 (110) 100 Simple Mask 8 10/08/17 13:28 97.8 74 18 193/94 99 -: 10/09/17 0430 10/08/17 1112 Physical Exam General Appearance: Well Nourished, No Acute Distress, Comfortable Throat Throat Exam: Oral Mucosa [place] & Moist Neck Neck Exam: Neck Supple Pulmonary Resp Exam: Breath Sounds Equal, No Distress, Rhonchi, Decreased Bases, Diminished Breath Sounds Cardiology CV Exam: Regular, Normal Sinus Rhythm Gastrointestinal/Abdomen GI Exam: Soft, Non-Tender, Bowel Sounds Present, Distended Extremeties Extremities Exam: Trace Edema (left lower leg with dressing.) Neurologic Neuro Exam: Alert, Awake, Oriented Psychiatric Psych Exam: Appropriate Responses Assessment/Plan Problem List: (1) Acute worsening of stage 4 chronic kidney disease ICD Codes: N28.9 - Disorder of kidney and ureter, unspecified; N18.4 - Chronic kidney disease, stage 4 (severe) Status: Acute Plan: Patient has stage 4 chronic kidney disease and develop Acute kidney injury, most likely hypotension with blood loss and NSAID use. Chronic kidney disease stage 4 from most likely uncontrolled hypertension. His baseline creatinine is at 2.5 to 3.0 and his video producer is Dr. Florez. CT of abdomen is noted to have kidney of normal size and shape. There is no mass, stone or hydronephrosis. Plan HGB 4.5 being transfused PRBC and protonix gtt is running Hypocalcemia: calcium gluconate given on 10/07. K is normal and calcium is better. Check UA Avoid NSAIDs and other nephrotoxic agents. Monitor urinary output and BMP. BUN and Creatinine almost same. (2) Sleep apnea ICD Codes: G47.30 - Sleep apnea, unspecified Status: Chronic (3) HTN (hypertension) ICD Codes: I10 - Essential (primary) hypertension Status: Chronic Plan: On isosorbide and PRN Will monitor (4) Skin ulcer ICD Codes: L98.499 - Non-pressure chronic ulcer of skin of other sites with unspecified severity Status: Chronic Plan: Dressing on Wound care has been consulted (5) Acute blood loss anemia ICD Codes: D62 - Acute posthemorrhagic anemia Status: Acute Plan: GI consulted NPO Protonix gtt infusing. Aden Block MD Oct 09, 2017 12:17
[2017-10-09] MEDS: PANTOPRAZOLE SOD 40 MG DELAYED RELEASE TAB PO SCH (19:58)
[2017-10-09] MEDS: diphenhydrAMINE HCL 50 MG/ML VIAL IV PRN (23:09)
[2017-10-10] VITALS (12 sets, daily range): BP systolic 152–199; BP diastolic 77–100; PULSE 70–88; RESP 18–22; TEMP 98.3–99; O2SAT 96–98
[2017-10-10] MEDS: CHLORHEXIDINE GLUCONATE 2 % 1 PACK (2 CLOTHS)(taper/protocol) TOPICAL SCH (04:00)
[2017-10-10] MEDS: MORPHINE SULFATE 2 MG/ML SYRINGE IV PRN ×7 (04:16→20:33)
[2017-10-10] MEDS: diphenhydrAMINE HCL 50 MG/ML VIAL IV PRN (06:12)
[2017-10-10 07:19] LABS: AUTOMATED NEUTROPHIL # 8.5 TH/MM3 (1.8-7.7); BASOPHIL # 0.1 TH/MM3 (0-0.2); BASOPHIL % 0.5 % (0.0-2.0); EOSINOPHIL # 0.5 TH/MM3 (0-0.4); EOSINOPHIL % 4.1 % (0.0-4.0); HEMATOCRIT 22.3 % (39.0-51.0); HEMOGLOBIN 7.4 GM/DL (13.0-17.0); LYMPH % 10.5 % (9.0-44.0); LYMPHOCYTE # 1.2 TH/MM3 (1.0-4.8); MEAN CELL VOLUME 87.3 FL (80.0-100.0); MEAN CORPUSCULAR HGB CONC 33.3 % (32.0-36.0); MEAN PLATELET VOLUME 8.9 FL (7.0-11.0); MONO % 8.1 % (0.0-8.0); MONOCYTE # 0.9 TH/MM3 (0-0.9); NEUT % 76.8 % (16.0-70.0); PLATELET COUNT 184 TH/MM3 (150-450); RED BLOOD COUNT 2.56 MIL/MM3 (4.50-5.90); RED CELL DISTRIBUTION WIDTH 17.5 % (11.6-17.2); WHITE BLOOD COUNT 11.1 TH/MM3 (4.0-11.0)
[2017-10-10 07:46] LABS: BICARBONATE 20.5 MEQ/L (21.0-32.0); CALCIUM 8.2 MG/DL (8.5-10.1); CREATININE 4.21 MG/DL (0.60-1.30)
[2017-10-10] MEDS: PANTOPRAZOLE SOD 40 MG DELAYED RELEASE TAB PO SCH ×2 (08:45→20:33)
[2017-10-10] MEDS: SODIUM CHLORIDE 0.9% FLUSH 10 ML FLUSH IV FLUSH SCH ×2 (08:46→20:34)
[2017-10-10] MEDS: DOCUSATE SODIUM 50 MG/SENNA 8.6 MG TAB PO SCH ×2 (08:46→20:33)
[2017-10-10] MEDS: METOPROLOL TARTRATE 25 MG TAB PO SCH (08:46)
[2017-10-10] MEDS: ISOSORBIDE DINITRATE 20 MG TAB PO SCH ×3 (08:46→18:00)
[2017-10-10] MEDS: SODIUM CHLOR 0.9% 1000 ML INJ 1,000 ML IV SCH (08:54)
[2017-10-10] MEDS: CIPROFLOXACIN 250 MG TAB PO SCH ×2 (10:02→20:34)
[2017-10-10] MEDS: DOXYCYCLINE HYCLATE 100 MG TAB PO SCH ×2 (10:02→20:33)
--- NOTE | 2017-10-10 13:31 | HHI.NPPN ---
Subjective General Problems: Anemia, Edema, Hypertension Renal Failure: Chronic, Stage IV History of Present Illness 46 year old male with a past medical history of chronic kidney disease stage 4, Hypertension, sleep apnea, chronic left lower extremity leg ulcer, obesity, and CHF. Patient presented to the ED with abdominal pain and maroon stools. He was found to have a hemoglobin of 4.5. His blood pressure is elevated now but per records when EMS arrived he was found to be hypotensive with a SBP in the 80 's. Nephrology is consulted for acute on chronic renal failure with a creatinine of 4.72 and potassium of 5.5. His baseline creatinine is at 2.5 to 3.0 and his bundling machine operator is Dr. Florez. Additional Remarks Patient is more alert. Complaining of left lower leg pain at wound site. Denies any shortness or breath. Is requesting food. (Zehra Dela Cruz) Review of Systems General Constitutional: Fatigue (Zehra Dela Cruz) Respiratory Respiratory Remarks Denies SOB (Zehra Dela Cruz) Cardiovascular Cardiac: Edema (Zehra Dela Cruz) Objective Data Data 10/10/17 10/11/17 19:00 07:00 Intake Total 140 ml Balance 140 ml IV Total 140 ml Vital Signs Date Time Temp Pulse Resp B/P (MAP) Pulse Ox O2 Delivery O2 Flow Rate FiO2 10/10/17 11:45 98.9 80 20 153/93 (113) 97 10/10/17 07:50 99.0 84 18 179/96 (123) 96 10/10/17 04:00 77 10/10/17 04:00 98.4 83 22 199/86 (123) 97 10/10/17 00:00 76 10/10/17 00:00 Room Air 10/10/17 00:00 98.4 88 22 179/99 (125) 96 10/09/17 22:14 70 133/69 (90) 10/09/17 20:00 Room Air 10/09/17 20:00 98.5 75 20 180/71 (107) 98 10/09/17 20:00 73 10/09/17 17:40 97.8 73 20 167/113 (131) 95 10/09/17 16:00 74 10/09/17 14:00 72 (Zehra Dela Cruz) -: 10/10/17 0550 10/10/17 0550 Physical Exam General Appearance: Well Nourished, No Acute Distress, Comfortable (Zehra Dela Cruz) Throat Throat Exam: Oral Mucosa [place] & Moist (Zehra Dela Cruz) Neck Neck Exam: Neck Supple (Zehra Dela Cruz) Pulmonary Resp Exam: Breath Sounds Equal, No Distress, Rhonchi, Decreased Bases, Diminished Breath Sounds (Zehra Dela Cruz) Cardiology CV Exam: Regular, Normal Sinus Rhythm (Zehra Dela Cruz) Gastrointestinal/Abdomen GI Exam: Soft, Non-Tender, Bowel Sounds Present, Distended (Zehra Dela Cruz) Extremeties Extremities Exam: Trace Edema (left lower leg with dressing.) (Zehra Dela Cruz) Neurologic Neuro Exam: Alert, Awake, Oriented (Zehra Dela Cruz) Psychiatric Psych Exam: Appropriate Responses (Zehra Dela Cruz) Assessment/Plan Problem List: (1) Acute worsening of stage 4 chronic kidney disease ICD Codes: N28.9 - Disorder of kidney and ureter, unspecified; N18.4 - Chronic kidney disease, stage 4 (severe) Status: Acute Plan: Acute kidney injury with admission creatinine of 4.72 and potassium of 5.5 from most likely hypotension with blood loss and NSAID use. Chronic kidney disease stage 4 from most likely uncontrolled hypertension. His baseline creatinine is at 2.5 to 3.0 and his bundling machine operator is Dr. Florez. CT of abdomen is noted to have kidney of normal size and shape. There is no mass, stone or hydronephrosis. Plan Avoid NSAIDs and other nephrotoxic agents. Follow the urine out put and BMP. Creatinine is slightly improved at 4.21 from 4.73 IVF infusing can be discontinued if tolerating PO Vitamin D level low will order replacement Blood pressure remains elevated will increase blood pressure medication. (2) Sleep apnea ICD Codes: G47.30 - Sleep apnea, unspecified Status: Chronic (3) HTN (hypertension) ICD Codes: I10 - Essential (primary) hypertension Status: Chronic Plan: metoprolol increased Will monitor (4) Skin ulcer ICD Codes: L98.499 - Non-pressure chronic ulcer of skin of other sites with unspecified severity Status: Chronic Plan: Dressing on Wound care has been consulted (5) Acute blood loss anemia ICD Codes: D62 - Acute posthemorrhagic anemia Status: Acute Plan: GI consulted On Protonix (Zehra Dela Cruz) Problem List: (1) Acute worsening of stage 4 chronic kidney disease ICD Codes: N28.9 - Disorder of kidney and ureter, unspecified; N18.4 - Chronic kidney disease, stage 4 (severe) Status: Acute Plan: Acute kidney injury with admission creatinine of 4.72 and potassium of 5.5 from most likely hypotension with blood loss and NSAID use. Chronic kidney disease stage 4 from most likely uncontrolled hypertension. His baseline creatinine is at 2.5 to 3.0 and his bundling machine operator is Dr. Florez. CT of abdomen is noted to have kidney of normal size and shape. There is no mass, stone or hydronephrosis. Plan Avoid NSAIDs and other nephrotoxic agents. Follow the urine out put and BMP. Creatinine is slightly improved at 4.21 from 4.73 IVF infusing can be discontinued if tolerating PO Vitamin D level low will order replacement Blood pressure remains elevated will increase blood pressure medication. Patient seen and examined,agree with above. Creatinine is slightly better. (2) Sleep apnea ICD Codes: G47.30 - Sleep apnea, unspecified Status: Chronic (3) HTN (hypertension) ICD Codes: I10 - Essential (primary) hypertension Status: Chronic Plan: metoprolol increased Will monitor (4) Skin ulcer ICD Codes: L98.499 - Non-pressure chronic ulcer of skin of other sites with unspecified severity Status: Chronic Plan: Dressing on Wound care has been consulted (5) Acute blood loss anemia ICD Codes: D62 - Acute posthemorrhagic anemia Status: Acute Plan: GI consulted On Protonix (Aden Block MD) Problem Qualifiers (1) Sleep apnea: Qualified Codes: G47.30 - Sleep apnea, unspecified (2) HTN (hypertension): Qualified Codes: I10 - Essential (primary) hypertension (3) Skin ulcer: Qualified Codes: L98.492 - Non-pressure chronic ulcer of skin of other sites with fat layer exposed Zehra Dela Cruz Oct 10, 2017 13:31 Aden Block MD Oct 10, 2017 17:51
--- NOTE | 2017-10-10 14:06 | HHI.PR ---
Subjective Remarks Pt c/o pain at LLE wound. Pt requesting to have his diet advanced. (+) flatus. Objective Vitals Vital Signs Date Time Temp Pulse Resp B/P (MAP) Pulse Ox O2 Delivery O2 Flow Rate FiO2 10/10/17 11:45 98.9 80 20 153/93 (113) 97 10/10/17 07:50 99.0 84 18 179/96 (123) 96 10/10/17 04:00 77 10/10/17 04:00 98.4 83 22 199/86 (123) 97 10/10/17 00:00 76 10/10/17 00:00 Room Air 10/10/17 00:00 98.4 88 22 179/99 (125) 96 10/09/17 22:14 70 133/69 (90) 10/09/17 20:00 Room Air 10/09/17 20:00 98.5 75 20 180/71 (107) 98 10/09/17 20:00 73 10/09/17 17:40 97.8 73 20 167/113 (131) 95 10/09/17 16:00 74 10/10/17 10/10/17 10/11/17 15:00 23:00 07:00 Intake Total 140 ml Balance 140 ml IV Total 140 ml Result Diagram: 10/10/17 0550 10/10/17 0550 Imaging Last Impressions Abdomen/Pelvis CT 10/07/172052 Signed Impressions: Service Date/Time: Saturday, October 07, 2017 21:19 - CONCLUSION: 1. No acute abnormality seen. 2. Colonic diverticula. Cruz Guadarrama MD Objective Remarks GENERAL: This is a well-nourished, well-developed patient, in no apparent distress. CARDIOVASCULAR: Regular rate and rhythm without murmurs, gallops, or rubs. RESPIRATORY: Clear to auscultation. Breath sounds equal bilaterally. No wheezes , rales, or rhonchi. GASTROINTESTINAL: obese, distended, decreased bowel sounds x 4, MUSCULOSKELETAL: Extremities without clubbing, cyanosis, or edema. NEURO: Alert & Oriented x4 to person, place, time, situation. Moves all ext x4 A/P Problem List: (1) Acute blood loss anemia ICD Codes: D62 - Acute posthemorrhagic anemia Status: Acute Plan: - Pt admitted with acute GIB - Pt had been using goody powder - Pt had EGD (10/08). Pt found to have gastric ulcers - Pt underwent epi/clip - Pt admitted to [place] with Hg 4.5 (10/07) - Pt has received 6 units PRBCs - Hg 7.4 (10/15). Transfuse additional 2 units PRBCs - Repeat Hg in AM - PO protonix - obtain KUB - continue clears for now - consider advancing diet 10/11 - DVT prophylaxis - SCD to right leg - consider subQ heparin if GI and Podiatry agree - supportive care (2) GI bleed ICD Codes: K92.2 - Gastrointestinal hemorrhage, unspecified Status: Acute Plan: - see above (3) Acute worsening of stage 4 chronic kidney disease ICD Codes: N28.9 - Disorder of kidney and ureter, unspecified; N18.4 - Chronic kidney disease, stage 4 (severe) Status: Acute Plan: - a/ckd - comgmt with Nephrology, Dr. Block - repeat BMP in AM (4) Skin ulcer ICD Codes: L98.499 - Non-pressure chronic ulcer of skin of other sites with unspecified severity Status: Chronic Plan: - case d/w Dr. Zuri Loya (10/10). She will consult. - Pt may require debridement with palcement of wound VAC - obtain wound culture - ciprofloxin/doxycycline (5) Sleep apnea ICD Codes: G47.30 - Sleep apnea, unspecified Status: Chronic Plan: - Pt will need re-evaluation with polysomnogram outpt. (6) HTN (hypertension) ICD Codes: I10 - Essential (primary) hypertension Status: Chronic Plan: - metoprolol - observe Problem Qualifiers (1) GI bleed: Qualified Codes: K92.2 - Gastrointestinal hemorrhage, unspecified (2) Skin ulcer: Qualified Codes: L98.492 - Non-pressure chronic ulcer of skin of other sites with fat layer exposed (3) Sleep apnea: Qualified Codes: G47.30 - Sleep apnea, unspecified (4) HTN (hypertension): Qualified Codes: I10 - Essential (primary) hypertension González Tierney DO Oct 10, 2017 14:06
[2017-10-10] MEDS ORDERED: SODIUM CHLOR 0.9% 250 ML INJ 250 ML IV ONE (14:15)
[2017-10-10] MEDS ORDERED: FUROSEMIDE 20 MG/2 ML VIAL IV PUSH ONE (14:15)
[2017-10-10] MEDS: ACETAMINOPHEN/HYDROcodone 325 MG/10 MG TAB PO PRN ×2 (14:44→22:18)
--- NOTE | 2017-10-10 15:10 | HHI.GIFU ---
Subjective Remarks Pt resting in bed, c/o hunger pains. No BM today, no bleeding. (Bhargavi Campbell) Objective Vitals I&O Vital Signs Date Time Temp Pulse Resp B/P (MAP) Pulse Ox O2 Delivery O2 Flow Rate FiO2 10/10/17 11:45 98.9 80 20 153/93 (113) 97 10/10/17 07:50 99.0 84 18 179/96 (123) 96 10/10/17 07:00 Room Air 10/10/17 04:00 77 10/10/17 04:00 98.4 83 22 199/86 (123) 97 10/10/17 00:00 76 10/10/17 00:00 Room Air 10/10/17 00:00 98.4 88 22 179/99 (125) 96 10/09/17 22:14 70 133/69 (90) 10/09/17 20:00 Room Air 10/09/17 20:00 98.5 75 20 180/71 (107) 98 10/09/17 20:00 73 10/09/17 17:40 97.8 73 20 167/113 (131) 95 10/09/17 16:00 74 I/O 10/09/17 10/09/17 10/09/17 10/10/17 10/10/17 10/10/17 07:00 15:00 23:00 07:00 15:00 23:00 Intake Total 75.5 ml 238 ml 320 ml 140 ml Output Total 650 ml 500 ml Balance -574.5 ml 238 ml -180 ml 140 ml Intake Oral 320 ml IV Total 75.5 ml 238 ml 140 ml Output Urine Total 650 ml 500 ml # Bowel Movements 3 Laboratory Laboratory Tests Test 10/10/17 05:50 White Blood Count 11.1 Red Blood Count 2.56 Hemoglobin 7.4 Hematocrit 22.3 Mean Corpuscular Volume 87.3 Mean Corpuscular Hemoglobin 29.0 Mean Corpuscular Hemoglobin Concent 33.3 Red Cell Distribution Width 17.5 Platelet Count 184 Mean Platelet Volume 8.9 Neutrophils (%) (Auto) 76.8 Lymphocytes (%) (Auto) 10.5 Monocytes (%) (Auto) 8.1 Eosinophils (%) (Auto) 4.1 Basophils (%) (Auto) 0.5 Neutrophils # (Auto) 8.5 Lymphocytes # (Auto) 1.2 Monocytes # (Auto) 0.9 Eosinophils # (Auto) 0.5 Basophils # (Auto) 0.1 CBC Comment DIFF FINAL Differential Comment Blood Urea Nitrogen 105 Creatinine 4.21 Random Glucose 93 Calcium Level 8.2 Sodium Level 144 Potassium Level 4.0 Chloride Level 112 Carbon Dioxide Level 20.5 Anion Gap 12 Estimat Glomerular Filtration Rate 18 Imaging Last Impressions Abdomen/Pelvis CT 10/07/172052 Signed Impressions: Service Date/Time: Saturday, October 07, 2017 21:19 - CONCLUSION: 1. No acute abnormality seen. 2. Colonic diverticula. Cruz Guadarrama MD Physical Exam HEENT: Normocephalic; atraumatic CHEST: Even/unlabored CARDIAC: RRR ABDOMEN: Distended, soft, nontender, bowel sounds acitve TENTMAKER: No focal deficits; alert and oriented times three. (Bhargavi Campbell) Assessment and Plan Plan Assessment: - Anemia with reports of rectal bleeding as per HPI Reports black and maroon colored stools that began yesterday while at a viewing. Last BM was prior to transfer. H/H on admission 4.5/13.8. Denies history of GIB. Has never had EGD or colonoscopy. Of note, has been taking daily Ibuprofen and Aleve for leg pain. Occasional ETOH. - CKD- GFR 16. Hyperkalemia- K+ 5.5 - High risk for GI procedures- history of AAA repair (10/09) --> S/P EGD (10/08) --> Gastritis with gastric ulcer with visible vessel- Endoclipping with epi injection. Pt received 6 U of PRBCs total yesterday, only on following EGD. Denies BM since EGD. Denies nausea, vomiting, abdominal pain. H/H stable over night currently 7.8/22.8 10/10/17 mild decrease hgb overnight, 7.4. no obvious GI bleeding. Plan: - heparin with caution - Protonix PO BID - advance diet to full liquids - Monitor H/H - Transfuse as needed - Notify GI if any continued bleeding Pt has been seen and examined by myself and Dr. Nino and this note is written on his behalf (Bhargavi Campbell) Physician Comments Patient seen and examined Agree with above Continue with current supportive care Monitor lab Caution with anticoagulation due to high risk ulcer Certainly his risk is on the decline with treatment Not much to add from a GI perspective at this point and we will sign off (Jaden Nino MD) Bhargavi Campbell Oct 10, 2017 15:10 Jaden Nino MD Oct 10, 2017 23:45
--- NOTE | 2017-10-10 15:17 | PD.WCN.NOT ---
Wound Consult Additional Information: Patient not seen on . Podiatry Doctor Vincenzo was consulted for evaluation of LLE wound. Please Defer to podiatry for orders for LLE. Renea Fontaine [facility] Oct 10, 2017 15:17
--- NOTE | 2017-10-10 16:08 | RADRPT ---
EXAM DATE/TIME: 10/10/2017 15:26 [place] COMPARISON: No previous studies available for comparison. INDICATIONS : Abdominal distention. MEDICAL HISTORY : Cardiovascular disease. Hypertension. SURGICAL HISTORY : Abdominal aortic aneurysm repair. ENCOUNTER: Initial ACUITY: 1 day PAIN SCORE: 10/10 LOCATION: all quadrants. FINDINGS: Examination of the abdomen demonstrates gaseous distention of the small bowel with air fluid levels m ost consistent with ileus .There are no findings of small bowel obstruction. No free air is identifie d. No organomegaly is evident. CONCLUSION: 1. Findings of mild small bowel ileus in the lower quadrant. Constantino Hagen MD on October 10, 2017 at 16:05 Board Certified Radiologist. This report was verified electronically.
[2017-10-10] MEDS: METOPROLOL TARTRATE 50 MG TAB PO SCH (20:33)
[2017-10-10] MEDS: cloNIDine HCL 0.1 MG TAB PO PRN (22:18)
[2017-10-11] VITALS (12 sets, daily range): BP systolic 138–175; BP diastolic 76–113; PULSE 65–93; RESP 18–20; TEMP 97.3–98.2; O2SAT 93–99
[2017-10-11] MEDS: cloNIDine HCL 0.1 MG TAB PO PRN ×2 (02:21→20:18)
[2017-10-11] MEDS: MORPHINE SULFATE 2 MG/ML SYRINGE IV PRN ×6 (02:31→23:44)
[2017-10-11] MEDS: CHLORHEXIDINE GLUCONATE 2 % 1 PACK (2 CLOTHS)(taper/protocol) TOPICAL SCH ×2 (04:00→21:18)
[2017-10-11] MEDS: ACETAMINOPHEN/HYDROcodone 325 MG/10 MG TAB PO PRN ×3 (04:35→16:01)
[2017-10-11] MEDS: CHOLECALCIFEROL (VIT D3) 5000 UNIT CAP PO SCH (08:25)
[2017-10-11] MEDS: SODIUM CHLORIDE 0.9% FLUSH 10 ML FLUSH IV FLUSH SCH ×2 (08:25→20:19)
[2017-10-11] MEDS: ISOSORBIDE DINITRATE 20 MG TAB PO SCH ×3 (08:25→17:27)
[2017-10-11] MEDS: PANTOPRAZOLE SOD 40 MG DELAYED RELEASE TAB PO SCH ×2 (08:25→20:18)
[2017-10-11] MEDS: DOXYCYCLINE HYCLATE 100 MG TAB PO SCH ×2 (08:25→20:18)
[2017-10-11] MEDS: DOCUSATE SODIUM 50 MG/SENNA 8.6 MG TAB PO SCH ×2 (08:25→20:18)
[2017-10-11] MEDS: CIPROFLOXACIN 250 MG TAB PO SCH ×2 (08:25→20:18)
[2017-10-11] MEDS: METOPROLOL TARTRATE 50 MG TAB PO SCH ×2 (08:25→20:18)
[2017-10-11] MEDS: diphenhydrAMINE HCL 50 MG/ML VIAL IV PRN ×2 (08:41→20:18)
--- NOTE | 2017-10-11 10:35 | HHI.NPPN ---
Subjective General Problems: Anemia, Edema, Hypertension Renal Failure: Chronic, Stage IV History of Present Illness 46 year old male with a past medical history of chronic kidney disease stage 4, Hypertension, sleep apnea, chronic left lower extremity leg ulcer, obesity, and CHF. Patient presented to the ED with abdominal pain and maroon stools. He was found to have a hemoglobin of 4.5. His blood pressure is elevated now but per records when EMS arrived he was found to be hypotensive with a SBP in the 80 's. Nephrology is consulted for acute on chronic renal failure with a creatinine of 4.72 and potassium of 5.5. His baseline creatinine is at 2.5 to 3.0 and his box maker wood is Dr. Florez. Additional Remarks Patient is alert and oriented. Denies any shortness of breath. (Zehra Dela Cruz) Review of Systems General Constitutional: Fatigue (Zehra Dela Cruz) Respiratory Respiratory Remarks Denies SOB (Zehra Dela Cruz) Cardiovascular Cardiac: Edema (Zehra Dela Cruz) Objective Data Data Vital Signs Date Time Temp Pulse Resp B/P (MAP) Pulse Ox O2 Delivery O2 Flow Rate FiO2 10/11/17 08:00 98.0 69 20 161/113 (129) 98 10/11/17 07:00 Room Air 10/11/17 05:22 97.9 71 20 156/98 (117) 94 10/11/17 04:00 72 10/11/17 03:58 97.8 68 20 157/110 99 10/11/17 03:47 97.9 69 20 138/87 95 10/11/17 01:58 Room Air 10/11/17 00:30 98.2 67 20 97 10/11/17 00:16 67 20 171/76 96 10/11/17 00:00 69 10/10/17 23:49 98.3 75 20 164/100 96 10/10/17 23:49 98.3 10/10/17 23:38 98.3 70 20 152/77 96 10/10/17 23:31 98.3 71 20 152/77 (102) 96 10/10/17 20:49 98.4 80 18 98 10/10/17 20:00 87 10/10/17 15:51 98.8 74 20 172/100 (124) 97 10/10/17 12:00 77 10/10/17 11:45 98.9 80 20 153/93 (113) 97 (Zehra Dela Cruz) -: 10/10/17 0550 10/10/17 0550 Microbiology 10/10/17 Gram Stain - Final, Resulted 10/10/17 Wound Culture, Resulted Pending Imaging Last Impressions Abdomen X-Ray 10/10/17 0000 Signed Impressions: Service Date/Time: Tuesday, October 10, 2017 15:26 - CONCLUSION: 1. Findings of mild small bowel ileus in the lower quadrant. Constantino Hagen MD Abdomen/Pelvis CT 10/07/172052 Signed Impressions: Service Date/Time: Saturday, October 07, 2017 21:19 - CONCLUSION: 1. No acute abnormality seen. 2. Colonic diverticula. Cruz Guadarrama MD (Zehra Dela Cruz) Physical Exam General Appearance: Well Nourished, No Acute Distress, Comfortable (Zehra Dela Cruz) Throat Throat Exam: Oral Mucosa [place] & Moist (Zehra Dela Cruz) Neck Neck Exam: Neck Supple (Zehra Dela Cruz) Pulmonary Resp Exam: Breath Sounds Equal, No Distress, Rhonchi, Decreased Bases, Diminished Breath Sounds (Zehra Dela Cruz) Cardiology CV Exam: Regular, Normal Sinus Rhythm (Zehra Dela Cruz) Gastrointestinal/Abdomen GI Exam: Soft, Non-Tender, Bowel Sounds Present, Distended (Zehra Dela Cruz) Extremeties Extremities Exam: Trace Edema (left lower leg with dressing.) (Zehra Dela Cruz) Neurologic Neuro Exam: Alert, Awake, Oriented (Zehra Dela Cruz) Psychiatric Psych Exam: Appropriate Responses (Zehra Dela Cruz) Assessment/Plan Problem List: (1) Acute worsening of stage 4 chronic kidney disease ICD Codes: N28.9 - Disorder of kidney and ureter, unspecified; N18.4 - Chronic kidney disease, stage 4 (severe) Status: Acute Plan: Acute kidney injury with admission creatinine of 4.72 and potassium of 5.5 from most likely hypotension with blood loss and NSAID use. Chronic kidney disease stage 4 from most likely uncontrolled hypertension. His baseline creatinine is at 2.5 to 3.0 and his box maker wood is Dr. Florez. CT of abdomen is noted to have kidney of normal size and shape. There is no mass, stone or hydronephrosis. Plan Avoid NSAIDs and other nephrotoxic agents. Follow the urine out put and BMP. Creatinine is improving at 3.59 IVF discontinued tolerating PO Blood pressure elevated metoprolol increased yesterday will monitor (2) Sleep apnea ICD Codes: G47.30 - Sleep apnea, unspecified Status: Chronic (3) HTN (hypertension) ICD Codes: I10 - Essential (primary) hypertension Status: Chronic Plan: metoprolol increased Will monitor (4) Skin ulcer ICD Codes: L98.499 - Non-pressure chronic ulcer of skin of other sites with unspecified severity Status: Chronic Plan: Dressing on Wound care has been consulted (5) Acute blood loss anemia ICD Codes: D62 - Acute posthemorrhagic anemia Status: Acute Plan: GI consulted On Protonix (Zehra Dela Cruz) Problem List: (1) Acute worsening of stage 4 chronic kidney disease ICD Codes: N28.9 - Disorder of kidney and ureter, unspecified; N18.4 - Chronic kidney disease, stage 4 (severe) Status: Acute Plan: Acute kidney injury with admission creatinine of 4.72 and potassium of 5.5 from most likely hypotension with blood loss and NSAID use. Chronic kidney disease stage 4 from most likely uncontrolled hypertension. His baseline creatinine is at 2.5 to 3.0 and his box maker wood is Dr. Florez. CT of abdomen is noted to have kidney of normal size and shape. There is no mass, stone or hydronephrosis. Plan Avoid NSAIDs and other nephrotoxic agents. Follow the urine out put and BMP. Creatinine is improving at 3.59 IVF discontinued tolerating PO Blood pressure elevated metoprolol increased yesterday will monitor. Patient seen and examined, agree with above. Follow the BP and BMP. Avoid Nephrotoxins. (2) Sleep apnea ICD Codes: G47.30 - Sleep apnea, unspecified Status: Chronic (3) HTN (hypertension) ICD Codes: I10 - Essential (primary) hypertension Status: Chronic Plan: metoprolol increased Will monitor (4) Skin ulcer ICD Codes: L98.499 - Non-pressure chronic ulcer of skin of other sites with unspecified severity Status: Chronic Plan: Dressing on Wound care has been consulted (5) Acute blood loss anemia ICD Codes: D62 - Acute posthemorrhagic anemia Status: Acute Plan: GI consulted On Protonix (Aden Block MD) Problem Qualifiers (1) Sleep apnea: Qualified Codes: G47.30 - Sleep apnea, unspecified (2) HTN (hypertension): Qualified Codes: I10 - Essential (primary) hypertension (3) Skin ulcer: Qualified Codes: L98.492 - Non-pressure chronic ulcer of skin of other sites with fat layer exposed Zehra Dela Cruz Oct 11, 2017 10:35 Aden Block MD Oct 12, 2017 19:08
[2017-10-11 11:15] LABS: AUTOMATED NEUTROPHIL # 6.3 TH/MM3 (1.8-7.7); BASOPHIL # 0.1 TH/MM3 (0-0.2); BASOPHIL % 0.6 % (0.0-2.0); EOSINOPHIL # 0.4 TH/MM3 (0-0.4); EOSINOPHIL % 4.4 % (0.0-4.0); HEMATOCRIT 27.4 % (39.0-51.0); HEMOGLOBIN 9.2 GM/DL (13.0-17.0); LYMPH % 14.5 % (9.0-44.0); LYMPHOCYTE # 1.3 TH/MM3 (1.0-4.8); MEAN CELL VOLUME 87.3 FL (80.0-100.0); MEAN CORPUSCULAR HEMOGLOBIN 29.2 PG (27.0-34.0); MEAN CORPUSCULAR HGB CONC 33.4 % (32.0-36.0); MEAN PLATELET VOLUME 8.7 FL (7.0-11.0); MONO % 7.7 % (0.0-8.0); MONOCYTE # 0.7 TH/MM3 (0-0.9); NEUT % 72.8 % (16.0-70.0); PLATELET COUNT 198 TH/MM3 (150-450); RED BLOOD COUNT 3.14 MIL/MM3 (4.50-5.90); RED CELL DISTRIBUTION WIDTH 17.3 % (11.6-17.2); WHITE BLOOD COUNT 8.7 TH/MM3 (4.0-11.0)
[2017-10-11 11:39] LABS: BICARBONATE 21.4 MEQ/L (21.0-32.0); CALCIUM 8.1 MG/DL (8.5-10.1); CREATININE 3.59 MG/DL (0.60-1.30)
--- NOTE | 2017-10-11 16:20 | MB ---
cc: Zuri Loya DPM DATE: 10/11/2017 CHIEF COMPLAINT: Left leg ulceration. HISTORY OF PRESENT ILLNESS: Mr. Demetrice Jackson is a 46-year-old male patient, seen by me once in the office months ago. The patient did not followup as instructed and was never arranged to have a wound VAC or surgical intervention as with our original plan; however, he has consistently seen Dr. Harlan Marks for this wound for which he received sporadic wound care. He was admitted due to a gastrointestinal bleed, which has since stabilized. This appears to be due to a peptic ulcer or some kind. The patient is a fairly poor historian as far as intervention to the left leg is concerned. He states that the wound is very painful. He denies any nausea, vomiting, fever, headaches or chills. PAST MEDICAL HISTORY: Includes CHF, anemia, renal failure, hypertension, chronic left lower extremity ulceration. PAST SURGICAL HISTORY: AAA repair and surgery to the left leg. MEDICATIONS: Please see list. ALLERGIES: NO KNOWN DRUG ALLERGIES. SOCIAL HISTORY: The patient lives at home with his . Denies tobacco or alcohol abuse. LABORATORY DATA: White count is 8.7, hemoglobin is 9.2, hematocrit 27.4, platelets are 198. INR 1.3, sodium 145, potassium 4.1, chloride 114, carbon dioxide 24.1, BUN 81, glucose 100. Wound cultures show rare gram-positive cocci and heavy gram-negative rods. PHYSICAL EXAMINATION: VITAL SIGNS: Temperature is 97.3, respiratory rate 20, blood pressure 142/81, pulse oximetry 93% O2 on room air. EXTREMITIES: The patient has bilateral edema with difficult to assess pulses; however, the leg feels fairly warm and the capillary refill time is normal. There is a large circumferential wound on the posterior aspect of the leg, approximately 18 x 15 cm with a fibrotic sloughing base and serous drainage, sharp wound edges and tenderness to palpation. ASSESSMENT: 1. Stage II, left leg ulceration. No acute infection. 2. Vascular consultation pending to assess circulation and optimize this patient for wound healing. PLAN: 1. Plan for surgery on for wound debridement and wound VAC application. 2. The patient is aware he may require more surgery in the future, such as a wound graft. 3. Continue antibiotics. MIKALA Day , 03:45 PM , 04:19 PM HERMINIA
--- NOTE | 2017-10-11 16:26 | HHI.PR ---
Subjective Remarks Nursing reports that pt falls asleep mid-sentence. Objective Vitals Vital Signs Date Time Temp Pulse Resp B/P (MAP) Pulse Ox O2 Delivery O2 Flow Rate FiO2 10/11/17 12:00 97.3 93 20 142/81 (101) 93 10/11/17 08:00 98.0 69 20 161/113 (129) 98 10/11/17 07:00 Room Air 10/11/17 05:22 97.9 71 20 156/98 (117) 94 10/11/17 04:00 72 10/11/17 03:58 97.8 68 20 157/110 99 10/11/17 03:47 97.9 69 20 138/87 95 10/11/17 01:58 Room Air 10/11/17 00:30 98.2 67 20 97 10/11/17 00:16 67 20 171/76 96 10/11/17 00:00 69 10/10/17 23:49 98.3 75 20 164/100 96 10/10/17 23:49 98.3 10/10/17 23:38 98.3 70 20 152/77 96 10/10/17 23:31 98.3 71 20 152/77 (102) 96 10/10/17 20:49 98.4 80 18 98 10/10/17 20:00 87 Result Diagram: 10/11/17 1055 10/11/17 1055 Imaging Last Impressions Abdomen/Pelvis CT 10/07/172052 Signed Impressions: Service Date/Time: Saturday, October 07, 2017 21:19 - CONCLUSION: 1. No acute abnormality seen. 2. Colonic diverticula. Cruz Guadarrama MD Objective Remarks GENERAL: This is a well-nourished, well-developed patient, in no apparent distress. CARDIOVASCULAR: Regular rate and rhythm without murmurs, gallops, or rubs. RESPIRATORY: Clear to auscultation. Breath sounds equal bilaterally. No wheezes , rales, or rhonchi. GASTROINTESTINAL: obese, distended, decreased bowel sounds x 4, MUSCULOSKELETAL: large, circumferential wound at LLE above the ankle NEURO: Alert & Oriented x4 to person, place, time, situation. Moves all ext x4 A/P Problem List: (1) Acute blood loss anemia ICD Codes: D62 - Acute posthemorrhagic anemia Status: Acute Plan: - Pt admitted with acute GIB - Pt had been using goody powder - Pt had EGD (10/08). Pt found to have gastric ulcers - Pt underwent epi/clip - Pt admitted to [facility] with Hg 4.5 (10/07) - Pt has received 8 units PRBCs - Hg 7.4 (10/10). last 2 units PRBCs transfused (10/10) - Hg 9.2 (10/11) - Repeat Hg in AM - PO protonix - KUB (10/11) --> mild ileus - passing gas - advance to soft diet - DVT prophylaxis - SCD to right leg - start SubQ heparin - supportive care (2) GI bleed ICD Codes: K92.2 - Gastrointestinal hemorrhage, unspecified Status: Acute Plan: - see above (3) Acute worsening of stage 4 chronic kidney disease ICD Codes: N28.9 - Disorder of kidney and ureter, unspecified; N18.4 - Chronic kidney disease, stage 4 (severe) Status: Acute Plan: - a/ckd - comgmt with Nephrology, Dr. Block - Cr/GFR continue to improve - Cr 4.73 (10/08), 3.59 (10/11) - GFR 16 (10/08), 22 (10/11) - encourage PO intake - observe (4) Skin ulcer ICD Codes: L98.499 - Non-pressure chronic ulcer of skin of other sites with unspecified severity Status: Chronic Plan: - case d/w Dr. Zuri Loya (10/10). - santyl - wound culture --> NO growth - ciprofloxin/doxycycline - Wound VAC 10/13 - Vascular Surgery Consult requested. Case d/w Dr. Victor. He will consult. - Can NOT obtain CTA with runoff at this time d/t ARF - obtain segmental Doppler study (5) Sleep apnea ICD Codes: G47.30 - Sleep apnea, unspecified Status: Chronic Plan: - Pt will need re-evaluation with polysomnogram outpt. (6) HTN (hypertension) ICD Codes: I10 - Essential (primary) hypertension Status: Chronic Plan: - metoprolol - observe Problem Qualifiers (1) GI bleed: Qualified Codes: K92.2 - Gastrointestinal hemorrhage, unspecified (2) Skin ulcer: Qualified Codes: L98.492 - Non-pressure chronic ulcer of skin of other sites with fat layer exposed (3) Sleep apnea: Qualified Codes: G47.30 - Sleep apnea, unspecified (4) HTN (hypertension): Qualified Codes: I10 - Essential (primary) hypertension González Tierney DO Oct 11, 2017 16:26
[2017-10-11] MEDS: COLLAGENASE OINT 30 GM TUBE TOPICAL SCH (17:27)
[2017-10-11] MEDS: HEPARIN SODIUM - SQ 10,000 UNITS/ML VIAL SQ SCH (21:17)
[2017-10-12] VITALS (8 sets, daily range): BP systolic 139–209; BP diastolic 64–130; PULSE 66–80; RESP 18–20; TEMP 98.2–98.8; O2SAT 94–98
[2017-10-12] MEDS: HEPARIN SODIUM - SQ 10,000 UNITS/ML VIAL SQ SCH ×3 (06:30→20:53)
[2017-10-12] MEDS: MORPHINE SULFATE 2 MG/ML SYRINGE IV PRN ×4 (07:01→22:44)
[2017-10-12 07:54] LABS: AUTOMATED NEUTROPHIL # 8.5 TH/MM3 (1.8-7.7); BASOPHIL # 0.1 TH/MM3 (0-0.2); BASOPHIL % 0.5 % (0.0-2.0); EOSINOPHIL # 0.4 TH/MM3 (0-0.4); EOSINOPHIL % 3.7 % (0.0-4.0); HEMATOCRIT 26.9 % (39.0-51.0); LYMPH % 9.3 % (9.0-44.0); MEAN CORPUSCULAR HEMOGLOBIN 29.2 PG (27.0-34.0); MEAN CORPUSCULAR HGB CONC 33.5 % (32.0-36.0); MEAN PLATELET VOLUME 8.6 FL (7.0-11.0); NEUT % 77.5 % (16.0-70.0); PLATELET COUNT 212 TH/MM3 (150-450); RED BLOOD COUNT 3.09 MIL/MM3 (4.50-5.90); RED CELL DISTRIBUTION WIDTH 17.6 % (11.6-17.2)
[2017-10-12 08:21] LABS: BICARBONATE 23.8 MEQ/L (21.0-32.0); CALCIUM 8.3 MG/DL (8.5-10.1); CREATININE 3.41 MG/DL (0.60-1.30); MAGNESIUM 2.1 MG/DL (1.5-2.5)
[2017-10-12] MEDS: CHOLECALCIFEROL (VIT D3) 5000 UNIT CAP PO SCH (08:37)
[2017-10-12] MEDS: ACETAMINOPHEN/HYDROcodone 325 MG/10 MG TAB PO PRN ×3 (08:37→20:52)
[2017-10-12] MEDS: DOXYCYCLINE HYCLATE 100 MG TAB PO SCH ×2 (08:37→20:52)
[2017-10-12] MEDS: DOCUSATE SODIUM 50 MG/SENNA 8.6 MG TAB PO SCH ×2 (08:37→20:52)
[2017-10-12] MEDS: METOPROLOL TARTRATE 50 MG TAB PO SCH ×2 (08:38→20:52)
[2017-10-12] MEDS: ISOSORBIDE DINITRATE 20 MG TAB PO SCH ×3 (08:38→17:54)
[2017-10-12] MEDS: SODIUM CHLORIDE 0.9% FLUSH 10 ML FLUSH IV FLUSH SCH ×2 (08:38→20:52)
[2017-10-12] MEDS: CIPROFLOXACIN 250 MG TAB PO SCH (08:38)
[2017-10-12] MEDS: PANTOPRAZOLE SOD 40 MG DELAYED RELEASE TAB PO SCH ×2 (08:45→20:52)
[2017-10-12] MEDS: cloNIDine HCL 0.1 MG TAB PO PRN ×2 (08:53→16:00)
[2017-10-12] MEDS: COLLAGENASE OINT 30 GM TUBE TOPICAL SCH (08:53)
--- NOTE | 2017-10-12 11:43 | RADRPT ---
EXAM DATE/TIME: 10/11/2017 00:00 [facility] COMPARISON: ARTERIAL SEGMENTAL DOPPLER COMP W/TBI, March 18, 2017, 0:00. INDICATIONS : Left leg ulceration, hypertension, congestive heart failure TECHNIQUE: Five-station segmental examination of the lower extremities was performed. Pulsed-cuff waveform tracings and pressures were recorded. Ankle-brachial indices and toe-brachial indices were calculated. PRESSURES (mmHg): Brachial (arm): Right IV SITE Left 182 Lower Thigh: Right >CNO Left >CNO Calf: Right 188 Left >CNO Ankle: Right 191 Left >CNO Toe: Right 136 Left 57 CURT: Right 1.05 Left >CNO TBI: Right 0.75 Left 0.31 PULSED CUFF WAVEFORMS: Amplitude blunting of the left ankle and toe waveforms. CONCLUSION: 1. Normal CURT and TBI on the right. 2. Abnormal TBI on the left. Multiple segments that could not be occluded in the left lower extremity possibly representing severely calcified vessels. CURT could not be calculated. As the patient is sym ptomatic in the left lower extremity, CTA abdomen and runoff would be recommended for anatomic charac terization. Pb Orosco MD on October 12, 2017 at 11:39 Board Certified Radiologist. This report was verified electronically.
--- NOTE | 2017-10-12 15:55 | HHI.PR ---
Subjective Remarks Patient c/o pain left ankle Currently working with PT Objective Vitals Vital Signs Date Time Temp Pulse Resp B/P (MAP) Pulse Ox O2 Delivery O2 Flow Rate FiO2 10/12/17 12:00 66 10/12/17 12:00 98.6 66 19 159/103 (121) 97 10/12/17 08:38 Room Air 10/12/17 08:00 98.3 80 19 140/113 (122) 98 10/12/17 08:00 73 10/12/17 04:11 98.2 71 18 170/96 (120) 95 10/12/17 04:00 73 10/12/17 00:48 98.8 75 20 139/64 (89) 94 10/12/17 00:00 Room Air 10/12/17 00:00 79 10/11/17 20:04 97.6 75 20 175/101 (125) 96 10/11/17 20:00 Room Air 10/11/17 20:00 73 10/11/17 16:00 66 10/11/17 16:00 97.4 66 18 143/79 (100) 96 Result Diagram: 10/12/17 0720 10/12/17 0720 Other Results Laboratory Tests Test 10/10/17 05:50 10/11/17 10:55 10/12/17 07:20 White Blood Count 11.1 TH/MM3 8.7 TH/MM3 11.0 TH/MM3 Red Blood Count 2.56 MIL/MM3 3.14 MIL/MM3 3.09 MIL/MM3 Hemoglobin 7.4 GM/DL 9.2 GM/DL 9.0 GM/DL Hematocrit 22.3 % 27.4 % 26.9 % Mean Corpuscular Volume 87.3 FL 87.3 FL 87.0 FL Mean Corpuscular Hemoglobin 29.0 PG 29.2 PG 29.2 PG Mean Corpuscular Hemoglobin Concent 33.3 % 33.4 % 33.5 % Red Cell Distribution Width 17.5 % 17.3 % 17.6 % Platelet Count 184 TH/MM3 198 TH/MM3 212 TH/MM3 Mean Platelet Volume 8.9 FL 8.7 FL 8.6 FL Neutrophils (%) (Auto) 76.8 % 72.8 % 77.5 % Lymphocytes (%) (Auto) 10.5 % 14.5 % 9.3 % Monocytes (%) (Auto) 8.1 % 7.7 % 9.0 % Eosinophils (%) (Auto) 4.1 % 4.4 % 3.7 % Basophils (%) (Auto) 0.5 % 0.6 % 0.5 % Neutrophils # (Auto) 8.5 TH/MM3 6.3 TH/MM3 8.5 TH/MM3 Lymphocytes # (Auto) 1.2 TH/MM3 1.3 TH/MM3 1.0 TH/MM3 Monocytes # (Auto) 0.9 TH/MM3 0.7 TH/MM3 1.0 TH/MM3 Eosinophils # (Auto) 0.5 TH/MM3 0.4 TH/MM3 0.4 TH/MM3 Basophils # (Auto) 0.1 TH/MM3 0.1 TH/MM3 0.1 TH/MM3 CBC Comment DIFF FINAL DIFF FINAL DIFF FINAL Differential Comment Blood Urea Nitrogen 105 MG/DL 81 MG/DL 71 MG/DL Creatinine 4.21 MG/DL 3.59 MG/DL 3.41 MG/DL Random Glucose 93 MG/DL 100 MG/DL 119 MG/DL Calcium Level 8.2 MG/DL 8.1 MG/DL 8.3 MG/DL Sodium Level 144 MEQ/L 145 MEQ/L 146 MEQ/L Potassium Level 4.0 MEQ/L 4.1 MEQ/L 4.2 MEQ/L Chloride Level 112 MEQ/L 114 MEQ/L 115 MEQ/L Carbon Dioxide Level 20.5 MEQ/L 21.4 MEQ/L 23.8 MEQ/L Anion Gap 12 MEQ/L 10 MEQ/L 7 MEQ/L Estimat Glomerular Filtration Rate 18 ML/MIN 22 ML/MIN 23 ML/MIN Magnesium Level 2.0 MG/DL 2.1 MG/DL Imaging Last Impressions Abdomen/Pelvis CT 10/07/172052 Signed Impressions: Service Date/Time: Saturday, October 07, 2017 21:19 - CONCLUSION: 1. No acute abnormality seen. 2. Colonic diverticula. Cruz Guadarrama MD Objective Remarks GENERAL: This is a well-nourished, well-developed patient, in no apparent distress. SKIN: dressing left ankle dry and intact CARDIOVASCULAR: Regular rate and rhythm RESPIRATORY: Clear to auscultation. Breath sounds equal bilaterally. GASTROINTESTINAL: obese, distended, decreased bowel sounds x 4, MUSCULOSKELETAL: large, circumferential wound at LLE above the ankle with dressing present dry and intact NEURO: Alert & Oriented x4 to person, place, time, situation. Moves all ext x4 A/P Problem List: (1) Acute blood loss anemia ICD Codes: D62 - Acute posthemorrhagic anemia Status: Acute Plan: - Pt admitted with acute GIB - Pt had been using goody powder - Pt had EGD (10/08). Pt found to have gastric ulcers - Pt underwent epi/clip - Pt admitted to [facility] with Hg 4.5 (10/07) - Pt has received 8 units PRBCs - Hg 7.4 (10/10). last 2 units PRBCs transfused (10/10) - Hg 9.2 (10/11) - Hg 9.0 (10/12) - Repeat Hg in AM - PO protonix - KUB (10/11) --> mild ileus - passing gas positive BM (10/11) - advance to soft diet - DVT prophylaxis - SCD to right leg - start SubQ heparin - supportive care (2) GI bleed ICD Codes: K92.2 - Gastrointestinal hemorrhage, unspecified Status: Acute Plan: - see above (3) Acute worsening of stage 4 chronic kidney disease ICD Codes: N28.9 - Disorder of kidney and ureter, unspecified; N18.4 - Chronic kidney disease, stage 4 (severe) Status: Acute Plan: - a/ckd - comgmt with Nephrology, Dr. Block - Cr/GFR continue to improve - Cr 4.73 (10/08), 3.59 (10/11), 3.41 (10/12) - GFR 16 (10/08), 22 (10/11), 23 (10/12) - encourage PO intake - observe (4) Skin ulcer ICD Codes: L98.499 - Non-pressure chronic ulcer of skin of other sites with unspecified severity Status: Chronic Plan: - case d/w Dr. Zuri Loya (10/10). - santyl - wound culture (10/10) --> E coli and Proteus mirabilis resistant to Levaquin - will DC ciprofloxin/doxycycline - Start Rocephin - Vascular Surgery Consult requested. Case d/w Dr. Victor. He will consult. - obtain segmental Doppler study reviewed conclusion: Normal CURT and TBI on the right. Abnormal TBI on the left. Multiple segments that could not be occluded in the left lower extremity possibly representing severely calcified vessels. CURT could not be calculated. As the patient is symptomatic in the left lower extremity, CTA abdomen with run off recommended. - Can NOT obtain CTA with runoff at this time d/t ARF - Plan for debridement and wound vac placement (10/13) (5) Sleep apnea ICD Codes: G47.30 - Sleep apnea, unspecified Status: Chronic Plan: - Pt will need re-evaluation with polysomnogram outpt. (6) HTN (hypertension) ICD Codes: I10 - Essential (primary) hypertension Status: Chronic Plan: - metoprolol - observe Assessment and Plan Patient examined. Assessment and plan formulated with Sandee Perez PA-C. I agree with the above. Problem Qualifiers (1) GI bleed: Qualified Codes: K92.2 - Gastrointestinal hemorrhage, unspecified (2) Skin ulcer: Qualified Codes: L98.492 - Non-pressure chronic ulcer of skin of other sites with fat layer exposed (3) Sleep apnea: Qualified Codes: G47.30 - Sleep apnea, unspecified (4) HTN (hypertension): Qualified Codes: I10 - Essential (primary) hypertension Sandee Perez Oct 12, 2017 15:55 González Tierney DO Oct 14, 2017 21:33
--- NOTE | 2017-10-12 16:53 | PD.CAR.PN ---
CVT Progress Note Subjective/Hospital Course: Patient seen full consult dictated Will not do anything different at this point considering elevated BUN and creatinine preclusive of CTA with runoff Agree with local care and debridement Will follow Thanks J Objective: Vital Signs Date Time Temp Pulse Resp B/P (MAP) Pulse Ox O2 Delivery O2 Flow Rate FiO2 10/12/17 16:00 72 10/12/17 12:00 66 10/12/17 12:00 98.6 66 19 159/103 (121) 97 10/12/17 08:38 Room Air 10/12/17 08:00 98.3 80 19 140/113 (122) 98 10/12/17 08:00 73 10/12/17 04:11 98.2 71 18 170/96 (120) 95 10/12/17 04:00 73 10/12/17 00:48 98.8 75 20 139/64 (89) 94 10/12/17 00:00 Room Air 10/12/17 00:00 79 10/11/17 20:04 97.6 75 20 175/101 (125) 96 10/11/17 20:00 Room Air 10/11/17 20:00 73 Labs: Laboratory Tests Test 10/12/17 07:20 White Blood Count 11.0 TH/MM3 (4.0-11.0) Red Blood Count 3.09 MIL/MM3 (4.50-5.90) Hemoglobin 9.0 GM/DL (13.0-17.0) Hematocrit 26.9 % (39.0-51.0) Mean Corpuscular Volume 87.0 FL (80.0-100.0) Mean Corpuscular Hemoglobin 29.2 PG (27.0-34.0) Mean Corpuscular Hemoglobin Concent 33.5 % (32.0-36.0) Red Cell Distribution Width 17.6 % (11.6-17.2) Platelet Count 212 TH/MM3 (150-450) Mean Platelet Volume 8.6 FL (7.0-11.0) Neutrophils (%) (Auto) 77.5 % (16.0-70.0) Lymphocytes (%) (Auto) 9.3 % (9.0-44.0) Monocytes (%) (Auto) 9.0 % (0.0-8.0) Eosinophils (%) (Auto) 3.7 % (0.0-4.0) Basophils (%) (Auto) 0.5 % (0.0-2.0) Neutrophils # (Auto) 8.5 TH/MM3 (1.8-7.7) Lymphocytes # (Auto) 1.0 TH/MM3 (1.0-4.8) Monocytes # (Auto) 1.0 TH/MM3 (0-0.9) Eosinophils # (Auto) 0.4 TH/MM3 (0-0.4) Basophils # (Auto) 0.1 TH/MM3 (0-0.2) CBC Comment DIFF FINAL Differential Comment Blood Urea Nitrogen 71 MG/DL (7-18) Creatinine 3.41 MG/DL (0.60-1.30) Random Glucose 119 MG/DL (74-106) Calcium Level 8.3 MG/DL (8.5-10.1) Magnesium Level 2.1 MG/DL (1.5-2.5) Sodium Level 146 MEQ/L (136-145) Potassium Level 4.2 MEQ/L (3.5-5.1) Chloride Level 115 MEQ/L (98-107) Carbon Dioxide Level 23.8 MEQ/L (21.0-32.0) Anion Gap 7 MEQ/L (5-15) Estimat Glomerular Filtration Rate 23 ML/MIN (>89) Result Diagram: 10/12/17 0720 10/12/17 0720 Nick Victor MD Oct 12, 2017 16:53
--- NOTE | 2017-10-12 17:12 | MB ---
cc: Nick Victor MD, Slobodan MD DATE: 10/12/2017 CRITICAL CARE TIME: 38 minutes. REASON FOR CONSULTATION: Peripheral vascular disease, ulcer of the left leg, measuring 18 cm in diameter, hypertension, chronic renal failure, coronary artery disease, GI bleeding, anemia and hemorrhagic shock. HISTORY OF PRESENT ILLNESS: This 46-year-old black male who was admitted to the hospital on 10/07, i.e., 5 days ago ,with massive lower GI bleeding. At the time, he was found to be severely hypotensive and anemic with a hemoglobin of 4.5 g/dL. The patient also had the chest pain at that time, which is not surprising considering the degree of anemia. The patient was transfused with significant amounts of blood and blood products and was noted to have hematochezia and melena and is processed to undergo vascular workup. In addition, the patient was noted to have renal insufficiency. The patient has a large ulcer on the posterior aspect of his calf measuring about 18 cm going through skin into subcutaneous tissue to the muscle level. This is being debrided by podiatry at this time. I am not sure what kind of care patient got prior to this anywhere, but I am sure he must have seen somebody. PAST MEDICAL HISTORY: Hypertension, obesity, chronic renal failure, CHF. PAST SURGICAL HISTORY: Abdominal aortic aneurysm repair, although on abdominal CAT scan I do not see abdominal aortic graft of any sort, so I am not sure what that is about. SOCIAL HISTORY: The patient does not smoke and does not drink. PHYSICAL EXAMINATION: GENERAL: Reveals an obese 46-year-old male. HEENT: Normocephalic. No trauma to the head. Pupils are equal, reactive. Extraocular muscles intact. NECK: Supple. Bilateral carotid pulses. No bruits. CHEST: Bilateral breath sounds decreased over both lung ray consistent with the patient's habitus and difficulty on exam in general. HEART: Regular rate and rhythm. ABDOMEN: Soft, obese. Active bowel sounds. No rebound, no guarding, no masses. EXTREMITIES: The patient has somewhat edematous extremities and large legs as far as circumference concerned. I do not feel the pulses, but the patient does have dopplerable femoral, popliteal, dorsalis pedis and posterior tibial pulses. Capillary refill is slightly decreased, but the patient does not have acute vascular deficit. On the posterior aspect of the left lower leg, there is a large ulcer measuring about 10 x 18 cm, oval which is fairly clean. I guess patient must have had a debridement and this is under the care of podiatry. NEUROLOGIC: Grossly patient is intact. IMPRESSION: I reviewed lab work and diagnostic procedures. The gentleman has a posterior calf ulcer which I do not know how it got there, whether this is a pressure ulcer or vascular related. The arterial ultrasound of both legs is not much help because of the patient's body habitus, but I agree that he has some degree of insufficiency to both legs. As far as the aneurysm is concerned, I do not see any vascular grafts of any type, so I am not sure what that was about. At this point, the patient will need CT arteriogram with a runoff. The problem is his BUN and creatinine are elevated and, at this point, a risk to the renal system is exceeding any benefit we could get from arteriogram. The patient is right now not a candidate for any major surgery until the gastrointestinal bleeding issues are resolved, because even if there were no other renal issues doing any vascular surgery and anticoagulating the patient who came with massive gastrointestinal bleed would be a fool hearty pursuit. Therefore, the best approach is to manage the patient conservatively as is being done now, detect reason of his gastrointestinal bleed and then, when renal function improves, do a CTA with runoff. Until then, I am not planning to do any procedures. I thank you very much for the consult. MD BERNARDO Roger/ , 04:46 PM , 05:11 PM
--- NOTE | 2017-10-12 17:15 | HHI.NPPN ---
Subjective General Problems: Anemia, Edema, Hypertension Renal Failure: Chronic, Stage IV History of Present Illness 46 year old male with a past medical history of chronic kidney disease stage 4, Hypertension, sleep apnea, chronic left lower extremity leg ulcer, obesity, and CHF. Patient presented to the ED with abdominal pain and maroon stools. He was found to have a hemoglobin of 4.5. His blood pressure is elevated now but per records when EMS arrived he was found to be hypotensive with a SBP in the 80 's. Nephrology is consulted for acute on chronic renal failure with a creatinine of 4.72 and potassium of 5.5. His baseline creatinine is at 2.5 to 3.0 and his shopper is Dr. Florez. Additional Remarks Patient is alert and oriented. Denies any shortness of breath. Falls asleep in middle of conversation (Zehra Dela Cruz) Review of Systems General Constitutional: Fatigue (Zehra Dela Cruz) Respiratory Respiratory Remarks Denies SOB (Zehra Dela Cruz) Cardiovascular Cardiac: Edema (Zehra Dela Cruz) Objective Data Data Vital Signs Date Time Temp Pulse Resp B/P (MAP) Pulse Ox O2 Delivery O2 Flow Rate FiO2 10/12/17 16:00 72 10/12/17 12:00 66 10/12/17 12:00 98.6 66 19 159/103 (121) 97 10/12/17 08:38 Room Air 10/12/17 08:00 98.3 80 19 140/113 (122) 98 10/12/17 08:00 73 10/12/17 04:11 98.2 71 18 170/96 (120) 95 10/12/17 04:00 73 10/12/17 00:48 98.8 75 20 139/64 (89) 94 10/12/17 00:00 Room Air 10/12/17 00:00 79 10/11/17 20:04 97.6 75 20 175/101 (125) 96 10/11/17 20:00 Room Air 10/11/17 20:00 73 (Zehra Dela Cruz) -: 10/12/17 0720 10/12/17 0720 Physical Exam General Appearance: Well Nourished, No Acute Distress, Comfortable (Zehra Dela Cruz) Throat Throat Exam: Oral Mucosa [place] & Moist (Zehra Dela Cruz) Neck Neck Exam: Neck Supple (Zehra Dela Cruz) Pulmonary Resp Exam: Breath Sounds Equal, No Distress, Rhonchi, Decreased Bases, Diminished Breath Sounds (Zehra Dela Cruz) Cardiology CV Exam: Regular, Normal Sinus Rhythm (Zehra Dela Cruz) Gastrointestinal/Abdomen GI Exam: Soft, Non-Tender, Bowel Sounds Present, Distended (Zehra Dela Cruz) Extremeties Extremities Exam: Trace Edema (left lower leg with dressing.) (Zehra Dela Cruz) Neurologic Neuro Exam: Alert, Awake, Oriented (Zehra Dela Cruz) Psychiatric Psych Exam: Appropriate Responses (Zehra Dela Cruz) Assessment/Plan Problem List: (1) Acute worsening of stage 4 chronic kidney disease ICD Codes: N28.9 - Disorder of kidney and ureter, unspecified; N18.4 - Chronic kidney disease, stage 4 (severe) Status: Acute Plan: Acute kidney injury with admission creatinine of 4.72 and potassium of 5.5 from most likely hypotension with blood loss and NSAID use. Chronic kidney disease stage 4 from most likely uncontrolled hypertension. His baseline creatinine is at 2.5 to 3.0 and his shopper is Dr. Florez. CT of abdomen is noted to have kidney of normal size and shape. There is no mass, stone or hydronephrosis. Plan Avoid NSAIDs and other nephrotoxic agents. Follow the urine out put and BMP. Creatinine is improving at 3.41 from 3.59 IVF tolerating PO Blood pressure elevated will add hydralazine. (2) Sleep apnea ICD Codes: G47.30 - Sleep apnea, unspecified Status: Chronic (3) HTN (hypertension) ICD Codes: I10 - Essential (primary) hypertension Status: Chronic Plan: Hydralazine added Will monitor (4) Skin ulcer ICD Codes: L98.499 - Non-pressure chronic ulcer of skin of other sites with unspecified severity Status: Chronic Plan: Dressing on Wound care has been consulted (5) Acute blood loss anemia ICD Codes: D62 - Acute posthemorrhagic anemia Status: Acute Plan: GI consulted On Protonix (Zehra Dela Cruz) Problem List: (1) Acute worsening of stage 4 chronic kidney disease ICD Codes: N28.9 - Disorder of kidney and ureter, unspecified; N18.4 - Chronic kidney disease, stage 4 (severe) Status: Acute Plan: Acute kidney injury with admission creatinine of 4.72 and potassium of 5.5 from most likely hypotension with blood loss and NSAID use. Chronic kidney disease stage 4 from most likely uncontrolled hypertension. His baseline creatinine is at 2.5 to 3.0 and his shopper is Dr. Florez. CT of abdomen is noted to have kidney of normal size and shape. There is no mass, stone or hydronephrosis. Plan Avoid NSAIDs and other nephrotoxic agents. Follow the urine out put and BMP. Creatinine is improving at 3.41 from 3.59 IVF tolerating PO Blood pressure elevated will add hydralazine. Patient seen and examined, agree with above. Follow the BP and BMP. For Wound Vac. (2) Sleep apnea ICD Codes: G47.30 - Sleep apnea, unspecified Status: Chronic (3) HTN (hypertension) ICD Codes: I10 - Essential (primary) hypertension Status: Chronic Plan: Hydralazine added Will monitor (4) Skin ulcer ICD Codes: L98.499 - Non-pressure chronic ulcer of skin of other sites with unspecified severity Status: Chronic Plan: Dressing on Wound care has been consulted (5) Acute blood loss anemia ICD Codes: D62 - Acute posthemorrhagic anemia Status: Acute Plan: GI consulted On Protonix (Aden Block MD) Problem Qualifiers (1) Sleep apnea: Qualified Codes: G47.30 - Sleep apnea, unspecified (2) HTN (hypertension): Qualified Codes: I10 - Essential (primary) hypertension (3) Skin ulcer: Qualified Codes: L98.492 - Non-pressure chronic ulcer of skin of other sites with fat layer exposed Zehra Dela Cruz Oct 12, 2017 17:15 Aden Block MD Oct 13, 2017 18:52
[2017-10-12] MEDS: cefTRIAXone INJ 1,000 MG in SODIUM CHLORIDE 0.9% INJ 100 ML IV SCH (17:58)
[2017-10-12] MEDS: hydrALAZINE HCL 25 MG TAB PO SCH (20:52)
[2017-10-12] MEDS ORDERED: CHLORHEXIDINE GLUCONATE 2 % 1 PACK (2 CLOTHS) TOPICAL PRN (23:15)
[2017-10-12] MEDS ORDERED: POVIDONE IODINE 5% (ANTISEPSIS KIT) 4 APPLICATIONS EACH NARE PRN (23:15)
[2017-10-12] MEDS ORDERED: LACTATED RINGER'S 1000 ML IV PRN (23:15)
[2017-10-12] MEDS ORDERED: SODIUM CHLORID 0.9% 500 ML IV PRN (23:15)
[2017-10-13] VITALS (13 sets, daily range): BP systolic 153–195; BP diastolic 78–117; PULSE 65–83; RESP 18–24; TEMP 97.9–99.6; O2SAT 95–100
[2017-10-13] MEDS: cloNIDine HCL 0.1 MG TAB PO PRN ×2 (01:09→17:29)
[2017-10-13] MEDS: ACETAMINOPHEN/HYDROcodone 325 MG/10 MG TAB PO PRN ×3 (01:44→22:27)
[2017-10-13] MEDS: hydrALAZINE HCL 25 MG TAB PO SCH ×3 (04:57→22:05)
[2017-10-13] MEDS: MORPHINE SULFATE 2 MG/ML SYRINGE IV PRN (04:57)
[2017-10-13] MEDS: HEPARIN SODIUM - SQ 10,000 UNITS/ML VIAL SQ SCH ×3 (05:02→22:00)
[2017-10-13] MEDS: DOCUSATE SODIUM 50 MG/SENNA 8.6 MG TAB PO SCH ×2 (08:14→20:19)
[2017-10-13] MEDS: DOXYCYCLINE HYCLATE 100 MG TAB PO SCH ×2 (08:14→20:19)
[2017-10-13] MEDS: CHOLECALCIFEROL (VIT D3) 5000 UNIT CAP PO SCH (08:14)
[2017-10-13] MEDS: PANTOPRAZOLE SOD 40 MG DELAYED RELEASE TAB PO SCH ×2 (08:14→20:19)
[2017-10-13] MEDS: SODIUM CHLORIDE 0.9% FLUSH 10 ML FLUSH IV FLUSH SCH ×2 (08:14→20:19)
[2017-10-13] MEDS: METOPROLOL TARTRATE 50 MG TAB PO SCH ×2 (08:15→20:19)
[2017-10-13] MEDS: ISOSORBIDE DINITRATE 20 MG TAB PO SCH ×3 (08:15→17:21)
[2017-10-13] MEDS: COLLAGENASE OINT 30 GM TUBE TOPICAL SCH (08:20)
--- NOTE | 2017-10-13 12:44 | HHI.PR ---
Subjective Remarks No new complaints. Objective Vitals Vital Signs Date Time Temp Pulse Resp B/P (MAP) Pulse Ox O2 Delivery O2 Flow Rate FiO2 10/13/17 11:14 99 BiPAP 21 10/13/17 08:00 97.9 74 22 170/100 (123) 95 10/13/17 07:30 Room Air 10/13/17 05:02 98.0 74 20 153/93 (113) 97 10/13/17 04:37 72 10/13/17 02:01 98 10/13/17 01:45 98 40 10/13/17 00:00 68 10/13/17 00:00 99.6 71 18 172/109 (130) 98 10/12/17 20:00 73 10/12/17 20:00 98.8 78 18 183/95 (124) 97 10/12/17 19:00 Room Air 10/12/17 16:00 72 10/12/17 16:00 98.6 75 19 209/130 (156) 97 Result Diagram: 10/12/1771910/12/17719 Imaging Last Impressions Abdomen/Pelvis CT 10/07/172052 Signed Impressions: Service Date/Time: Saturday, October 07, 2017 21:19 - CONCLUSION: 1. No acute abnormality seen. 2. Colonic diverticula. Cruz Guadarrama MD Objective Remarks GENERAL: This is a well-nourished, well-developed patient, in no apparent distress. SKIN: dressing left ankle dry and intact CARDIOVASCULAR: Regular rate and rhythm RESPIRATORY: Clear to auscultation. Breath sounds equal bilaterally. GASTROINTESTINAL: obese, distended, decreased bowel sounds x 4, MUSCULOSKELETAL: large, circumferential wound at LLE above the ankle with dressing present dry and intact NEURO: Alert & Oriented x4 to person, place, time, situation. Moves all ext x4 A/P Problem List: (1) Acute blood loss anemia ICD Codes: D62 - Acute posthemorrhagic anemia Status: Acute Plan: - Pt admitted with acute GIB - Pt had been using goody powder - Pt had EGD (10/08). Pt found to have gastric ulcers - Pt underwent epi/clip - Pt admitted to [facility] with Hg 4.5 (10/07) - Pt has received 8 units PRBCs - Hg 7.4 (10/10). last 2 units PRBCs transfused (10/10) - Hg 9.2 (10/11) - Hg 9.0 (10/12) - Repeat Hg in AM - PO protonix - KUB (10/11) --> mild ileus - passing gas positive BM (10/11) - advance to soft diet - DVT prophylaxis - SCD to right leg - start SubQ heparin - supportive care (2) GI bleed ICD Codes: K92.2 - Gastrointestinal hemorrhage, unspecified Status: Acute Plan: - see above (3) Acute worsening of stage 4 chronic kidney disease ICD Codes: N28.9 - Disorder of kidney and ureter, unspecified; N18.4 - Chronic kidney disease, stage 4 (severe) Status: Acute Plan: - a/ckd - comgmt with Nephrology, Dr. Block - Cr/GFR continue to improve - Cr 4.73 (10/08), 3.59 (10/11), 3.41 (10/12) - GFR 16 (10/08), 22 (10/11), 23 (10/12) - encourage PO intake - observe (4) Skin ulcer ICD Codes: L98.499 - Non-pressure chronic ulcer of skin of other sites with unspecified severity Status: Chronic Plan: - case d/w Dr. Zuri Loya (10/10). - santyl - wound culture (10/10) --> E coli and Proteus mirabilis resistant to Levaquin - will DC ciprofloxin/doxycycline - Rocephin - Vascular Surgery Consult requested. Case d/w Dr. Victor. He will consult. - obtain segmental Doppler study reviewed conclusion: Normal CURT and TBI on the right. Abnormal TBI on the left. Multiple segments that could not be occluded in the left lower extremity possibly representing severely calcified vessels. CURT could not be calculated. As the patient is symptomatic in the left lower extremity, CTA abdomen with run off recommended. - Can NOT obtain CTA with runoff at this time d/t ARF - Plan for debridement and wound vac placement with Podiatry later today. (5) Sleep apnea ICD Codes: G47.30 - Sleep apnea, unspecified Status: Chronic Plan: - Pt will need re-evaluation with polysomnogram outpt. (6) HTN (hypertension) ICD Codes: I10 - Essential (primary) hypertension Status: Chronic Plan: - metoprolol - observe Problem Qualifiers (1) GI bleed: Qualified Codes: K92.2 - Gastrointestinal hemorrhage, unspecified (2) Skin ulcer: Qualified Codes: L98.492 - Non-pressure chronic ulcer of skin of other sites with fat layer exposed (3) Sleep apnea: Qualified Codes: G47.30 - Sleep apnea, unspecified (4) HTN (hypertension): Qualified Codes: I10 - Essential (primary) hypertension González Tierney DO Oct 13, 2017 12:44
[2017-10-13] MEDS ORDERED: ACETAMINOPHEN 1000 MG/100 ML 100 ML IV ONE (14:09)
[2017-10-13] MEDS ORDERED: MIDAZOLAM HCL 2 MG/2 ML VIAL ONE (14:09)
[2017-10-13] MEDS ORDERED: FAMOTIDINE 20 MG/2 ML VIAL ONE (14:10)
[2017-10-13] MEDS ORDERED: SUGAMMADEX SODIUM 200 MG/2 ML VIAL IV PUSH ONE (15:00)
[2017-10-13] MEDS ORDERED: *HYDROmorphone PF 0.5 MG/0.5 ML PERIprocedure ONLY ONE ×3 (15:44→16:22)
[2017-10-13] MEDS ORDERED: *MEPERIDINE 25 MG INJ VIAL PERIprocedural Use ONLY ONE (15:47)
[2017-10-13] MEDS ORDERED: MORPHINE SULFATE 4 MG/ML INJ ONE (15:54)
--- NOTE | 2017-10-13 15:58 | HHI.FF ---
Face to Face Verification Diagnosis: (1) Wound infection Home Health Nursing Order: Wound care and dressing changes I have seen patient Demetrice Jackson on 10/13/17. My clinical findings support the need for the requested home health care services because: Ltd mobility - disease progression Med compliance is questionable Limited ability to care for self Infection w/ risk of complications I certify that my clinical findings support that this patient is homebound because: Unsteady gait/balance Unsafe to leave home unassisted Zuri Loya DPM Oct 13, 2017 15:58
[2017-10-13] MEDS ORDERED: DO NOT ADM ANY ANTICOAGULANT DRUGS PRN (16:30)
--- NOTE | 2017-10-13 16:35 | MP ---
cc: Zuri Loya DPM DATE OF OPERATION: DATE OF SURGERY: 10/13/2017 SURGEON: Zuri Loya DPM STRAWHAT SIZER: first valentin Qureshi. PREOPERATIVE DIAGNOSIS: Left foot severe ulceration. POSTOPERATIVE DIAGNOSIS: Left foot severe ulceration. PROCEDURE PERFORMED: 1. Left leg wound debridement. 2. Left leg wound VAC application. PATHOLOGY SENT: None. ANESTHESIA: General. HEMOSTASIS: Anatomical dissection. ESTIMATED BLOOD LOSS: 25 mL. MATERIALS USED: A Versajet and a KCI wound VAC. INJECTABLES: None. COMPLICATIONS: None. INDICATIONS: Mr. Suresh is a well-known patient of Dr. Harlan Marks who has a chronic large ulceration of the left leg. We have made multiple attempts to obtain a wound VAC outpatient in order to do a proper debridement, but have been unable to do such due to complications with insurance and compliance with the patient. He was admitted due to a GI bleed and worsening of the wound. Decision was made to debride the wound while in-house and obtain a wound VAC. The consent was signed. The procedure was explained. No guarantees were given. PROCEDURE: Under mild sedation, the patient was brought into the operating room, placed on the operating table in a prone position. The leg was then scrubbed, prepped and draped in the usual aseptic manner. Attention was directed to the posterior aspect of the left calf where 17 x 16 cm full-thickness wound was noted. There were several areas of fibrotic and necrotic tissue and the Versajet was used to debride the wound down to the level of healthy tissue. There was an extremely thin layer of tissue over the distal aspect of the Achilles tendon, but is not yet exposed. Once the skin edges were refreshed and cleaned and the wound bed was void of any fibrotic or necrotic tissue, the area was cleansed with copious amounts of sterile saline and a KCI black wound VAC was applied, set to 125 mmHg and a good seal was obtained. A well-padded dressing of 4 x 4s, cast padding and a very light Kwan wrap were applied. The patient tolerated the procedure and the anesthesia well and will recover in the PACU for a period of time before being discharged home with written and oral postoperative instructions. MIKALA Day/JULIO , 04:01 PM , 04:35 PM
--- NOTE | 2017-10-13 17:03 | HHI.NPPN ---
Subjective General Problems: Anemia, Edema, Hypertension Renal Failure: Chronic, Stage IV History of Present Illness 46 year old male with a past medical history of chronic kidney disease stage 4, Hypertension, sleep apnea, chronic left lower extremity leg ulcer, obesity, and CHF. Patient presented to the ED with abdominal pain and maroon stools. He was found to have a hemoglobin of 4.5. His blood pressure is elevated now but per records when EMS arrived he was found to be hypotensive with a SBP in the 80 's. Nephrology is consulted for acute on chronic renal failure with a creatinine of 4.72 and potassium of 5.5. His baseline creatinine is at 2.5 to 3.0 and his rental car porter is Dr. Florez. Additional Remarks Patient complaining of pain in left leg. Has recently come back from a wound debridement and has wound vac applied. (Zehra Dela Cruz) Review of Systems General Constitutional: Fatigue (Zehra Dela Cruz) Respiratory Respiratory Remarks Denies SOB (Zehra Dela Cruz) Cardiovascular Cardiac: Edema (Zehra Dela Cruz) Objective Data Data Vital Signs Date Time Temp Pulse Resp B/P (MAP) Pulse Ox O2 Delivery O2 Flow Rate FiO2 10/13/17 16:31 16 10/13/17 16:31 16 10/13/17 16:25 98.2 77 16 148/80 (102) 96 Nasal Cannula 3 10/13/17 16:15 78 16 159/78 (105) 95 Nasal Cannula 3 10/13/17 16:00 80 15 167/89 (115) 94 Nasal Cannula 3 10/13/17 15:45 82 15 175/90 (118) 93 Nasal Cannula 3 10/13/17 15:40 98.7 85 19 185/92 (123) 99 Simple Mask 8 10/13/17 12:00 67 10/13/17 11:14 99 BiPAP 21 10/13/17 08:00 97.9 74 22 170/100 (123) 95 10/13/17 07:30 Room Air 10/13/17 05:02 98.0 74 20 153/93 (113) 97 10/13/17 04:37 72 10/13/17 02:01 98 10/13/17 01:45 98 40 4/26/18 00:00 68 10/13/17 00:00 99.6 71 18 172/109 (130) 98 10/12/17 20:00 73 10/12/17 20:00 98.8 78 18 183/95 (124) 97 10/12/17 19:00 Room Air (Zehra Dela Cruz) -: 10/12/17 0720 10/12/17 0720 Physical Exam General Appearance: Well Nourished, No Acute Distress, Comfortable (Zehra Dela Cruz) Throat Throat Exam: Oral Mucosa [place] & Moist (Zehra Dela Cruz) Neck Neck Exam: Neck Supple (Zehra Dela Cruz) Pulmonary Resp Exam: Breath Sounds Equal, No Distress, Rhonchi, Decreased Bases, Diminished Breath Sounds (Zehra Dela Cruz) Cardiology CV Exam: Regular, Normal Sinus Rhythm (Zehra Dela Cruz) Gastrointestinal/Abdomen GI Exam: Soft, Non-Tender, Bowel Sounds Present, Distended (Zehra Dela Cruz) Extremeties Extremities Exam: Trace Edema (left lower leg with dressing.) (Zehra Dela Cruz) Neurologic Neuro Exam: Alert, Awake, Oriented (Zehra Dela Cruz) Psychiatric Psych Exam: Appropriate Responses (Zehra Dela Cruz) Assessment/Plan Problem List: (1) Acute worsening of stage 4 chronic kidney disease ICD Codes: N28.9 - Disorder of kidney and ureter, unspecified; N18.4 - Chronic kidney disease, stage 4 (severe) Status: Acute Plan: Acute kidney injury with admission creatinine of 4.72 and potassium of 5.5 from most likely hypotension with blood loss and NSAID use. Chronic kidney disease stage 4 from most likely uncontrolled hypertension. His baseline creatinine is at 2.5 to 3.0 and his rental car porter is Dr. Florez. CT of abdomen is noted to have kidney of normal size and shape. There is no mass, stone or hydronephrosis. Plan Follow the urine out put and BMP. Avoid Nephrotoxins. Blood pressure continues to be elevated, hydralazine increased Labs in AM (2) Sleep apnea ICD Codes: G47.30 - Sleep apnea, unspecified Status: Chronic (3) HTN (hypertension) ICD Codes: I10 - Essential (primary) hypertension Status: Chronic Plan: metoprolol increased Will monitor (4) Skin ulcer ICD Codes: L98.499 - Non-pressure chronic ulcer of skin of other sites with unspecified severity Status: Chronic Plan: Dressing on Wound care has been consulted (5) Acute blood loss anemia ICD Codes: D62 - Acute posthemorrhagic anemia Status: Acute Plan: GI consulted On Protonix (Zehra Dela Cruz) Problem List: (1) Acute worsening of stage 4 chronic kidney disease ICD Codes: N28.9 - Disorder of kidney and ureter, unspecified; N18.4 - Chronic kidney disease, stage 4 (severe) Status: Acute Plan: Acute kidney injury with admission creatinine of 4.72 and potassium of 5.5 from most likely hypotension with blood loss and NSAID use. Chronic kidney disease stage 4 from most likely uncontrolled hypertension. His baseline creatinine is at 2.5 to 3.0 and his rental car porter is Dr. Florez. CT of abdomen is noted to have kidney of normal size and shape. There is no mass, stone or hydronephrosis. Plan Follow the urine out put and BMP. Avoid Nephrotoxins. Blood pressure continues to be elevated, hydralazine increased Labs in AM. Patient seen and examined, agree with above. Creatinine is stable, post wound Vac. (2) Sleep apnea ICD Codes: G47.30 - Sleep apnea, unspecified Status: Chronic (3) HTN (hypertension) ICD Codes: I10 - Essential (primary) hypertension Status: Chronic Plan: metoprolol increased Will monitor (4) Skin ulcer ICD Codes: L98.499 - Non-pressure chronic ulcer of skin of other sites with unspecified severity Status: Chronic Plan: Dressing on Wound care has been consulted (5) Acute blood loss anemia ICD Codes: D62 - Acute posthemorrhagic anemia Status: Acute Plan: GI consulted On Protonix (Aden Block MD) Problem Qualifiers (1) Sleep apnea: Qualified Codes: G47.30 - Sleep apnea, unspecified (2) HTN (hypertension): Qualified Codes: I10 - Essential (primary) hypertension (3) Skin ulcer: Qualified Codes: L98.492 - Non-pressure chronic ulcer of skin of other sites with fat layer exposed Zehra Dela Cruz Oct 13, 2017 17:03 Aden Block MD Oct 13, 2017 19:11
[2017-10-13] MEDS: cefTRIAXone INJ 1,000 MG in SODIUM CHLORIDE 0.9% INJ 100 ML IV SCH (17:22)
[2017-10-14] VITALS (8 sets, daily range): BP systolic 154–198; BP diastolic 89–111; PULSE 67–77; RESP 18–22; TEMP 97.3–98.4; O2SAT 95–100
[2017-10-14] MEDS: MORPHINE SULFATE 2 MG/ML SYRINGE IV PRN ×2 (02:53→22:57)
[2017-10-14] MEDS: diphenhydrAMINE HCL 50 MG/ML VIAL IV PRN (03:55)
[2017-10-14] MEDS: ACETAMINOPHEN/HYDROcodone 325 MG/10 MG TAB PO PRN ×3 (06:48→19:45)
[2017-10-14] MEDS: hydrALAZINE HCL 25 MG TAB PO SCH (06:48)
[2017-10-14] MEDS: HEPARIN SODIUM - SQ 10,000 UNITS/ML VIAL SQ SCH ×3 (06:49→21:15)
[2017-10-14] MEDS: COLLAGENASE OINT 30 GM TUBE TOPICAL SCH (06:54)
[2017-10-14 07:43] LABS: ALBUMIN 2.2 GM/DL (3.4-5.0); CALCIUM 8.5 MG/DL (8.5-10.1); CREATININE 3.74 MG/DL (0.60-1.30); PHOSPHORUS 4.7 MG/DL (2.5-4.9)
[2017-10-14] MEDS: ISOSORBIDE DINITRATE 20 MG TAB PO SCH ×3 (08:27→17:17)
[2017-10-14] MEDS: SODIUM CHLORIDE 0.9% FLUSH 10 ML FLUSH IV FLUSH SCH ×2 (08:27→21:15)
[2017-10-14] MEDS: CHOLECALCIFEROL (VIT D3) 5000 UNIT CAP PO SCH (08:27)
[2017-10-14] MEDS: PANTOPRAZOLE SOD 40 MG DELAYED RELEASE TAB PO SCH ×2 (08:27→21:14)
[2017-10-14] MEDS: DOXYCYCLINE HYCLATE 100 MG TAB PO SCH (08:28)
[2017-10-14] MEDS: DOCUSATE SODIUM 50 MG/SENNA 8.6 MG TAB PO SCH ×2 (08:28→21:00)
[2017-10-14] MEDS: METOPROLOL TARTRATE 50 MG TAB PO SCH ×2 (08:28→21:14)
--- NOTE | 2017-10-14 09:53 | HHI.FF ---
Sandee Perez 10/14/17 0953: Infusion Therapy Location of Infusion Therapy: [facility] Infusion Therapy Order Patient Information Appointment Date: Oct 15, 2017 Patient Weight 147.4 kg Diagnosis: Diagnosis Leg ulceration Coded Allergies: No Known Allergies (Verified Allergy, Unknown, 10/07/17) Uncoded Allergies: nka (Allergy, Unknown, 02/26/03) Administer Medication Ceftriaxone 1 gram IV q 24 hours Start Treatment: Oct 15, 2017 Stop Treatment: October 22, 2017 Additional Information Venous access: Peripheral Additional Instructions [x] Peripheral flush and dressing changes per protocol [x] Implanted port and central pipeline gang supervisor: * Implanted port: 10 ml Normal Saline followed by 5 ml Heparin 100 units/ml Heparin flush after each use and monthly to maintain. [] May leave port accessed during therapy. [] May leave peripheral site accessed for duration of therapy. [x] If patient has SOB or respiratory distress, check oxygen saturation. If less than 90% or clinical signs of respiratory distress, administer oxygen at 2 L/min. via nasal cannula and notify physician. [x] Anaphylaxis/Reaction orders: * Stop infusion. * Keep IV line open with saline flush. * Notify physician. * Monitor vital signs every 15 minutes until symptoms resolve. * Check Oxygen saturation; Oxygen at 2 L/min. via nasal cannula if less than 90% or clinical signs of respiratory distress. * Administer diphenhydramine (Benadryl) 25 mg IV STAT, (unless patient has received as pre-med). May repeat once, if necessary. * Solu-Cortef 250 mg IVP over 30-60 seconds, use 100 mg vials for each dissolution. * Epinephrine (1mg/1 ml) 0.3 mg subcutaneously or IVP now with any signs of respiratory distress. * Check with physician for new additional pre-med orders if patient is re- challenged or re-treated. [x] May remove PICC line when treatment complete, after confirming with Physician. [x] If the patient is admitted to the hospital, the ED, or transferred via [facility] , complete transfer form including medication reconciliation order sheet. Laboratory Tests Weekly Labs: BMP, CBC w/diff, LFT's (Hepatic function test) González Tierney DO 10/14/17 2138: Infusion Therapy Patient Information Coded Allergies: No Known Allergies (Verified Allergy, Unknown, 10/07/17) Uncoded Allergies: nka (Allergy, Unknown, 02/26/03) Sandee Perez Oct 14, 2017 09:53 González Tierney DO Oct 14, 2017 21:38
--- NOTE | 2017-10-14 09:59 | HHI.DCPOC ---
Discharge Care Plan Diagnosis: (1) Renal insufficiency (2) GI bleed (3) Severe anemia (4) Skin ulcer (5) Wound infection Goals to Promote Your Health * To prevent worsening of your condition and complications * To maintain your health at the optimal level Directions to Meet Your Goals Take your medications as prescribed Follow your dietary instruction Follow activity as directed Keep your appointments as scheduled Take your immunizations and boosters as scheduled If your symptoms worsen call your PCP, if no PCP go to Urgent Care Center or Emergency Room Smoking is Dangerous to Your Health. Avoid second hand smoke Call the 24-hour hour crisis hotline for domestic abuse at Sandee Perez Oct 14, 2017 09:59 González Tierney DO Oct 14, 2017 21:39
--- NOTE | 2017-10-14 10:34 | HHI.DS ---
Discharge Summary Admission Date Oct 07, 2017 at 22:45 Discharge Date: Oct 14, 2017 Admitting Diagnosis Severe anemia. GI bleed. Acute on chronic kidney disease. (1) Acute blood loss anemia ICD Codes: D62 - Acute posthemorrhagic anemia Status: Acute (2) GI bleed ICD Codes: K92.2 - Gastrointestinal hemorrhage, unspecified Status: Acute (3) Acute worsening of stage 4 chronic kidney disease ICD Codes: N28.9 - Disorder of kidney and ureter, unspecified; N18.4 - Chronic kidney disease, stage 4 (severe) Status: Acute (4) Skin ulcer ICD Codes: L98.499 - Non-pressure chronic ulcer of skin of other sites with unspecified severity Status: Chronic (5) Sleep apnea ICD Codes: G47.30 - Sleep apnea, unspecified Status: Chronic (6) HTN (hypertension) ICD Codes: I10 - Essential (primary) hypertension Status: Chronic Consultants Dr. Nino, GI Dr. Block, Nephrology Dr. Loya, Podiatry Dr. Victor, vascular surgery Procedures s/p EGD (10/08). Pt found to have gastric ulcers. Pt underwent epi/clip s/p debridement and wound vac placement (10/13) Brief History 46-year-old male complains of abdominal pain and rectal bleeding. Patient was was at a viewing when he started passing blood per rectum. Patient also complained abdominal pain at that time. EMS was called. Patient was found to be hypotensive with blood pressure in the 80s. IV was started and left upper chest. Patient was given normal saline solution 100 cc IV bolus prior to arrival. Upon arrival patient states that he does not have any abdominal pain. Patient denies any headache. Patient denies any chest pain or shortness of breath. Patient denies any dysuria frequency. Patient denies any fever chills. Patient has history chronic left leg ulcer with pain. Patient has been taking tramadol for pain. Patient states that he also takes over-the- counter Aleve for pain. Patient denies any history of GI bleed in the past. Patient denies any history of peptic ulcer. Patient is not on any blood thinner. Patient also on doxycycline for chronic left leg ulcer. Patient states had surgery to left leg ulcer last week. On a scale of 1-10 the left leg pain is a 7. Patient states that he has a history of chronic kidney disease. Patient very poor historian was in hospital recently for anemia required blood transfusion and was told had kidney failure and heart failure does not know what work up was done but does have high blood pressure and is on high dose medication . I will hold them for now in view of the hypotension. History CBC/BMP: 10/12/17 0720 10/14/17 0635 Significant Findings Laboratory Tests Test 10/11/17 10:55 10/12/17 07:20 10/14/17 06:35 Red Blood Count 3.14 MIL/MM3 (4.50-5.90) 3.09 MIL/MM3 (4.50-5.90) Hemoglobin 9.2 GM/DL (13.0-17.0) 9.0 GM/DL (13.0-17.0) Hematocrit 27.4 % (39.0-51.0) 26.9 % (39.0-51.0) Red Cell Distribution Width 17.3 % (11.6-17.2) 17.6 % (11.6-17.2) Neutrophils (%) (Auto) 72.8 % (16.0-70.0) 77.5 % (16.0-70.0) Eosinophils (%) (Auto) 4.4 % (0.0-4.0) Blood Urea Nitrogen 81 MG/DL (7-18) 71 MG/DL (7-18) 67 MG/DL (7-18) Creatinine 3.59 MG/DL (0.60-1.30) 3.41 MG/DL (0.60-1.30) 3.74 MG/DL (0.60-1.30) Calcium Level 8.1 MG/DL (8.5-10.1) 8.3 MG/DL (8.5-10.1) Chloride Level 114 MEQ/L (98-107) 115 MEQ/L (98-107) 111 MEQ/L (98-107) Estimat Glomerular Filtration Rate 22 ML/MIN (>89) 23 ML/MIN (>89) 21 ML/MIN (>89) Monocytes (%) (Auto) 9.0 % (0.0-8.0) Neutrophils # (Auto) 8.5 TH/MM3 (1.8-7.7) Monocytes # (Auto) 1.0 TH/MM3 (0-0.9) Random Glucose 119 MG/DL (74-106) 114 MG/DL (74-106) Sodium Level 146 MEQ/L (136-145) Albumin 2.2 GM/DL (3.4-5.0) PE at Discharge GENERAL: This is a well-nourished, well-developed patient, in no apparent distress. SKIN: wound vac to left lower extremity CARDIOVASCULAR: Regular rate and rhythm RESPIRATORY: Clear to auscultation. Breath sounds equal bilaterally. GASTROINTESTINAL: obese, distended, decreased bowel sounds x 4, MUSCULOSKELETAL: large, circumferential wound at LLE above the ankle with dressing present dry and intact NEURO: Alert & Oriented x4 to person, place, time, situation. Moves all ext x4 Hospital Course Acute blood loss anemia - Pt admitted with acute GIB - Pt had been using goody powder - Pt had EGD (10/08). Pt found to have gastric ulcers - Pt underwent epi/clip - Pt admitted to [facility] with Hg 4.5 (10/07) - Pt has received 8 units PRBCs - Hg 7.4 (10/10). last 2 units PRBCs transfused (10/10) - Hg 9.2 (10/11) - Hg 9.0 (10/12) - Repeat Hg in AM - PO protonix - KUB (10/11) --> mild ileus - passing gas positive BM (10/11) - advance to soft diet - DVT prophylaxis - SCD to right leg - start SubQ heparin - supportive care GI bleed - see above Acute worsening of stage 4 chronic kidney disease - a/ckd - comgmt with Nephrology, Dr. Block - Cr/GFR continue to improve - Cr 4.73 (10/08), 3.59 (10/11), 3.41 (10/12) - GFR 16 (10/08), 22 (10/11), 23 (10/12) - encourage PO intake - observe Skin ulcer - case d/w Dr. Zuri Loya (10/10). - santyl - wound culture (10/10) --> E coli and Proteus mirabilis resistant to Levaquin - will DC ciprofloxin/doxycycline - Start Rocephin - Vascular Surgery Consult requested. Case d/w Dr. Victor. He will consult. - obtain segmental Doppler study reviewed conclusion: Normal CURT and TBI on the right. Abnormal TBI on the left. Multiple segments that could not be occluded in the left lower extremity possibly representing severely calcified vessels. CURT could not be calculated. As the patient is symptomatic in the left lower extremity, CTA abdomen with run off recommended. - Can NOT obtain CTA with runoff at this time d/t ARF - s/p debridement and wound vac placement (10/13) - DC to SNF with wound vac Sleep apnea - Pt will need re-evaluation with polysomnogram outpt. HTN (hypertension) - metoprolol - observe Pt Condition on Discharge: Stable Discharge Disposition: Discharge to SNF Discharge Instructions DIET: Follow Instructions for: Heart Healthy Diet Activities you can perform: Weight Bearing as Vlad Follow up Referrals: Gastroenterology - 2 Weeks with Jaden Nino MD Nephrology - [address] Block PCP Follow-up - [address] Zavala Podiatry - 1 Week with Zuri Loya DPM New Medications: Pantoprazole (Pantoprazole) 40 Mg Tab 40 MG PO Q12HR for reduce stomach acid, #60 TAB 0 Refills Continued Medications: Aspirin (Aspirin Low Dose) 81 Mg Chew 81 MG CHEW DAILY, TAB 0 Refills Hydralazine (Hydralazine) 100 Mg Tab 100 MG PO TID for Blood Pressure Management, TAB 0 Refills Take with meals Isosorbide Dinitrate (Isosorbide Dinitrate) 20 Mg Tab 20 MG PO TID, TAB 0 Refills Metoprolol Tartrate (Metoprolol Tartrate) 50 Mg Tab 50 MG PO DAILY, #30 TAB 0 Refills Terazosin (Terazosin) 1 Mg Cap 1 MG PO HS, #30 CAP 0 Refills Discontinued Medications: Ciprofloxacin (Ciprofloxacin) 250 Mg Tab 250 MG PO BID for Infection, TAB 0 Refills Doxycycline Hyclate (Doxycycline Hyclate) 100 Mg Tab 100 MG PO Q12HR for bacterial infection for 7 Days, #14 TAB Spironolactone (Spironolactone) 25 Mg Tab 25 MG PO HS, #30 TAB 0 Refills Tramadol (Tramadol) 50 Mg Tab 50 MG PO Q8H PRN for PAIN, TAB 0 Refills Sandee Perez Oct 14, 2017 10:34
--- NOTE | 2017-10-14 10:54 | HHI.NPPN ---
Subjective General Problems: Anemia, Edema, Hypertension Renal Failure: Chronic, Stage IV History of Present Illness 46 year old male with a past medical history of chronic kidney disease stage 4, Hypertension, sleep apnea, chronic left lower extremity leg ulcer, obesity, and CHF. Patient presented to the ED with abdominal pain and maroon stools. He was found to have a hemoglobin of 4.5. His blood pressure is elevated now but per records when EMS arrived he was found to be hypotensive with a SBP in the 80 's. Nephrology is consulted for acute on chronic renal failure with a creatinine of 4.72 and potassium of 5.5. His baseline creatinine is at 2.5 to 3.0 and his video game maker is Dr. Florez. Additional Remarks Patient complaining of pain in left leg and that he is unable to take morphine because it makes him feel funny. Blood pressure elevated. (Zehra Dela Cruz) Review of Systems General Constitutional: Fatigue (Zehra Dela Cruz) Respiratory Respiratory Remarks Denies SOB (Zehra Dela Cruz) Cardiovascular Cardiac: Edema (Zehra Dela Cruz) Gastrointestinal GI Remarks denies abdominal pain (Zehra Dela Cruz) Objective Data Data Vital Signs Date Time Temp Pulse Resp B/P (MAP) Pulse Ox O2 Delivery O2 Flow Rate FiO2 10/14/17 10:00 Room Air 10/14/17 08:00 97.3 70 22 173/111 (131) 95 10/14/17 05:55 98.3 68 18 187/101 (129) 100 10/14/17 03:44 67 10/14/17 00:25 98.4 68 18 154/89 (110) 98 10/13/17 23:46 67 10/13/17 22:56 67 10/13/17 22:40 100 40 10/13/17 21:34 98.3 72 18 153/78 (103) 96 10/13/17 19:00 Room Air 10/13/17 16:31 16 10/13/17 16:31 16 10/13/17 16:25 98.2 77 16 148/80 (102) 96 Nasal Cannula 3 10/13/17 16:15 78 16 159/78 (105) 95 Nasal Cannula 3 4/26/18 16:00 80 15 167/89 (115) 94 Nasal Cannula 3 10/13/17 16:00 98.4 83 24 172/103 (126) 95 10/13/17 15:45 82 15 175/90 (118) 93 Nasal Cannula 3 10/13/17 15:40 98.7 85 19 185/92 (123) 99 Simple Mask 8 10/13/17 12:00 67 10/13/17 12:00 98.5 65 22 195/117 (143) 96 10/13/17 11:14 99 BiPAP 21 (Zehra Dela Cruz) -: 10/12/17 0720 10/14/17 0635 Imaging Last Impressions Abdomen X-Ray 10/10/17 0000 Signed Impressions: Service Date/Time: Tuesday, October 10, 2017 15:26 - CONCLUSION: 1. Findings of mild small bowel ileus in the lower quadrant. Constantino Hagen MD Abdomen/Pelvis CT 10/07/172052 Signed Impressions: Service Date/Time: Saturday, October 07, 2017 21:19 - CONCLUSION: 1. No acute abnormality seen. 2. Colonic diverticula. Cruz Guadarrama MD (Zehra Dela Cruz) Physical Exam General Appearance: Well Nourished, No Acute Distress, Comfortable (Zehra Dela Cruz) Throat Throat Exam: Oral Mucosa [place] & Moist (Zehra Dela Cruz) Neck Neck Exam: Neck Supple (Zehra Dela Cruz) Pulmonary Resp Exam: Breath Sounds Equal, No Distress, Rhonchi, Decreased Bases, Diminished Breath Sounds (Zehra Dela Cruz) Cardiology CV Exam: Regular, Normal Sinus Rhythm (Zehra Dela Cruz) Gastrointestinal/Abdomen GI Exam: Soft, Non-Tender, Bowel Sounds Present GI Remarks large (Zehra Dela Cruz) Integumentary Skin Exam: Clear, Warm Skin Remarks wound vac left foot (Zehra Dela Cruz) Extremeties Extremities Exam: Trace Edema (left lower leg with dressing.) (Zehra Dela Cruz) Neurologic Neuro Exam: Alert, Awake, Oriented (Zehra Dela Cruz) Psychiatric Psych Exam: Appropriate Responses (Zehra Dela Cruz) Assessment/Plan Problem List: (1) Acute worsening of stage 4 chronic kidney disease ICD Codes: N28.9 - Disorder of kidney and ureter, unspecified; N18.4 - Chronic kidney disease, stage 4 (severe) Status: Acute Plan: Acute kidney injury with admission creatinine of 4.72 and potassium of 5.5 from most likely hypotension with blood loss and NSAID use. Chronic kidney disease stage 4 from most likely uncontrolled hypertension. His baseline creatinine is at 2.5 to 3.0 and his video game maker is Dr. Florez. CT of abdomen is noted to have kidney of normal size and shape. There is no mass, stone or hydronephrosis. Plan Follow the urine out put and BMP. Avoid Nephrotoxins. Blood pressure continues to be elevated, hydralazine increased could be pain related Creatinine slightly increased fluids encouraged (2) Sleep apnea ICD Codes: G47.30 - Sleep apnea, unspecified Status: Chronic (3) HTN (hypertension) ICD Codes: I10 - Essential (primary) hypertension Status: Chronic Plan: Will monitor Hydralazine increased (4) Skin ulcer ICD Codes: L98.499 - Non-pressure chronic ulcer of skin of other sites with unspecified severity Status: Chronic Plan: Dressing on Wound care has been consulted (5) Acute blood loss anemia ICD Codes: D62 - Acute posthemorrhagic anemia Status: Acute Plan: GI consulted On Protonix (Zehra Dela Cruz) Problem List: (1) Acute worsening of stage 4 chronic kidney disease ICD Codes: N28.9 - Disorder of kidney and ureter, unspecified; N18.4 - Chronic kidney disease, stage 4 (severe) Status: Acute Plan: Acute kidney injury with admission creatinine of 4.72 and potassium of 5.5 from most likely hypotension with blood loss and NSAID use. Chronic kidney disease stage 4 from most likely uncontrolled hypertension. His baseline creatinine is at 2.5 to 3.0 and his video game maker is Dr. Florez. CT of abdomen is noted to have kidney of normal size and shape. There is no mass, stone or hydronephrosis. Plan Follow the urine out put and BMP. Avoid Nephrotoxins. Blood pressure continues to be elevated, hydralazine increased could be pain related Creatinine slightly increased fluids encouraged. Patient seen and examined, agree with above. Creatinine increase slightly, told to drink more fluid. (2) Sleep apnea ICD Codes: G47.30 - Sleep apnea, unspecified Status: Chronic (3) HTN (hypertension) ICD Codes: I10 - Essential (primary) hypertension Status: Chronic Plan: Will monitor Hydralazine increased (4) Skin ulcer ICD Codes: L98.499 - Non-pressure chronic ulcer of skin of other sites with unspecified severity Status: Chronic Plan: Dressing on Wound care has been consulted (5) Acute blood loss anemia ICD Codes: D62 - Acute posthemorrhagic anemia Status: Acute Plan: GI consulted On Protonix (Aden Block MD) Problem Qualifiers (1) Sleep apnea: Qualified Codes: G47.30 - Sleep apnea, unspecified (2) HTN (hypertension): Qualified Codes: I10 - Essential (primary) hypertension (3) Skin ulcer: Qualified Codes: L98.492 - Non-pressure chronic ulcer of skin of other sites with fat layer exposed Zehra Dela Cruz Oct 14, 2017 10:54 Aden Block MD Oct 16, 2017 11:48
[2017-10-14] MEDS: hydrALAZINE HCL 100 MG TAB PO SCH ×2 (12:29→21:17)
--- NOTE | 2017-10-14 15:09 | PD.POD ---
Subjective Pain score: 7 Remarks Left calf pain wound VAC intact Past Med/Surg/Social History Social History Smoking Status: Never Smoker Objective Vital Signs Vital Signs Date Time Temp Pulse Resp B/P (MAP) Pulse Ox O2 Delivery O2 Flow Rate FiO2 10/14/17 13:29 98 BiPAP 21 10/14/17 12:00 98.3 74 22 198/92 (127) 96 10/14/17 12:00 72 10/14/17 10:00 Room Air 10/14/17 08:00 97.3 70 22 173/111 (131) 95 10/14/17 08:00 77 10/14/17 05:55 98.3 68 18 187/101 (129) 100 10/14/17 03:44 67 10/14/17 00:25 98.4 68 18 154/89 (110) 98 10/13/17 23:46 67 10/13/17 22:56 67 10/13/17 22:40 100 40 10/13/17 21:34 98.3 72 18 153/78 (103) 96 10/13/17 19:00 Room Air 10/13/17 16:31 16 10/13/17 16:31 16 10/13/17 16:25 98.2 77 16 148/80 (102) 96 Nasal Cannula 3 10/13/17 16:15 78 16 159/78 (105) 95 Nasal Cannula 3 10/13/17 16:00 80 15 167/89 (115) 94 Nasal Cannula 3 10/13/17 16:00 98.4 83 24 172/103 (126) 95 10/13/17 15:45 82 15 175/90 (118) 93 Nasal Cannula 3 10/13/17 15:40 98.7 85 19 185/92 (123) 99 Simple Mask 8 Coded Allergies: No Known Allergies (Verified Allergy, Unknown, 10/07/17) Uncoded Allergies: nka (Allergy, Unknown, 02/26/03) Medications and IVs Laboratory Tests Test 10/14/17 06:35 Blood Urea Nitrogen 67 MG/DL Creatinine 3.74 MG/DL Random Glucose 114 MG/DL Albumin 2.2 GM/DL Chloride Level 111 MEQ/L Estimat Glomerular Filtration Rate 21 ML/MIN Other Results WOUND CULTURE Final (continued) 10/12/17-1106 ESC COLI PRO MIRABI M.I.C. RX M.I.C. RX --------- --- --------- --- AMPICILLIN >16 R AMOXICILLIN/K CLAVULANATE <8/4 S <8/4 S PIPERCILLIN/TAZOBACTAM <16 S <16 S AMPICILLIN/SULBACTAM 16/8 I <8/4 S CEFAZOLIN <2 S <2 S CEFUROXIME 8 S <4 S CEFTRIAXONE <1 S <1 S CEFTAZIDIME <1 S <1 S CEFEPIME <2 S <2 S AZTREONAM <4 S <4 S ERTAPENEM <0.5 S <0.5 S IMIPENEM <1 S GENTAMICIN <4 S <4 S TOBRAMYCIN <4 S <4 S TETRACYCLINE >8 R TRIMETH/SULFA >2/38 R <2/38 S LEVOFLOXACIN >4 R >4 R Physical Exam Remarks Left lower extremity examined wound VAC intact, good capillary refill to digits good range of motion of foot and ankle Assessment & Plan A/P Status post incision drainage wound debridement with wound VAC application left calf Recommended decrease suction to 75 mmHg this helped the patient's pain, okay to DC once wound VAC and home health arranged continue antibiotics per medicine. Follow-up with Dr. Loya once discharged. Herminio Gonsalves DPM Oct 14, 2017 15:09
[2017-10-14] MEDS: cefTRIAXone INJ 1,000 MG in SODIUM CHLORIDE 0.9% INJ 100 ML IV SCH (17:18)
[2017-10-14] MEDS ORDERED: HYDR-3583 PO (17:33)
--- NOTE | 2017-10-14 18:13 | HHI.PR ---
Subjective Remarks Patient looks much more awake and alert today, he was able to use BiPAP last night BP elevated Objective Vitals Vital Signs Date Time Temp Pulse Resp B/P (MAP) Pulse Ox O2 Delivery O2 Flow Rate FiO2 10/14/17 16:00 77 10/14/17 13:29 98 BiPAP 21 10/14/17 12:00 98.3 74 22 198/92 (127) 96 10/14/17 12:00 72 10/14/17 10:00 Room Air 10/14/17 08:00 97.3 70 22 173/111 (131) 95 10/14/17 08:00 77 10/14/17 05:55 98.3 68 18 187/101 (129) 100 10/14/17 03:44 67 10/14/17 00:25 98.4 68 18 154/89 (110) 98 10/13/17 23:46 67 10/13/17 22:56 67 10/13/17 22:40 100 40 10/13/17 21:34 98.3 72 18 153/78 (103) 96 10/13/17 19:00 Room Air Result Diagram: 10/12/17 0720 10/14/17 0635 Other Results Laboratory Tests Test 10/12/17 07:20 10/14/17 06:35 White Blood Count 11.0 TH/MM3 Red Blood Count 3.09 MIL/MM3 Hemoglobin 9.0 GM/DL Hematocrit 26.9 % Mean Corpuscular Volume 87.0 FL Mean Corpuscular Hemoglobin 29.2 PG Mean Corpuscular Hemoglobin Concent 33.5 % Red Cell Distribution Width 17.6 % Platelet Count 212 TH/MM3 Mean Platelet Volume 8.6 FL Neutrophils (%) (Auto) 77.5 % Lymphocytes (%) (Auto) 9.3 % Monocytes (%) (Auto) 9.0 % Eosinophils (%) (Auto) 3.7 % Basophils (%) (Auto) 0.5 % Neutrophils # (Auto) 8.5 TH/MM3 Lymphocytes # (Auto) 1.0 TH/MM3 Monocytes # (Auto) 1.0 TH/MM3 Eosinophils # (Auto) 0.4 TH/MM3 Basophils # (Auto) 0.1 TH/MM3 CBC Comment DIFF FINAL Differential Comment Blood Urea Nitrogen 71 MG/DL 67 MG/DL Creatinine 3.41 MG/DL 3.74 MG/DL Random Glucose 119 MG/DL 114 MG/DL Calcium Level 8.3 MG/DL 8.5 MG/DL Magnesium Level 2.1 MG/DL Sodium Level 146 MEQ/L 144 MEQ/L Potassium Level 4.2 MEQ/L 4.7 MEQ/L Chloride Level 115 MEQ/L 111 MEQ/L Carbon Dioxide Level 23.8 MEQ/L 24.0 MEQ/L Anion Gap 7 MEQ/L 9 MEQ/L Estimat Glomerular Filtration Rate 23 ML/MIN 21 ML/MIN Albumin 2.2 GM/DL Phosphorus Level 4.7 MG/DL Imaging Last Impressions Abdomen/Pelvis CT 10/07/172052 Signed Impressions: Service Date/Time: Saturday, October 07, 2017 21:19 - CONCLUSION: 1. No acute abnormality seen. 2. Colonic diverticula. Cruz Guadarrama MD Objective Remarks GENERAL: This is a well-nourished, well-developed patient, in no apparent distress. SKIN: wound vac to left lower extremity CARDIOVASCULAR: Regular rate and rhythm RESPIRATORY: Clear to auscultation. Breath sounds equal bilaterally. GASTROINTESTINAL: obese, distended, decreased bowel sounds x 4, MUSCULOSKELETAL: large, circumferential wound at LLE above the ankle with dressing present dry and intact NEURO: Alert & Oriented x4 to person, place, time, situation. Moves all ext x4 Procedures s/p EGD (10/08). Pt found to have gastric ulcers. Pt underwent epi/clip s/p debridement and wound vac placement (10/13) A/P Problem List: (1) Acute blood loss anemia ICD Codes: D62 - Acute posthemorrhagic anemia Status: Acute Plan: Acute blood loss anemia - Pt admitted with acute GIB - Pt had been using goody powder - Pt had EGD (10/08). Pt found to have gastric ulcers - Pt underwent epi/clip - Pt admitted to [facility] with Hg 4.5 (10/07) - Pt has received 8 units PRBCs - Hg 7.4 (10/10). last 2 units PRBCs transfused (10/10) - Hg 9.2 (10/11) - Hg 9.0 (10/12) - Repeat Hg in AM - PO protonix - KUB (10/11) --> mild ileus - passing gas positive BM (10/11) - advance to soft diet - DVT prophylaxis - SCD to right leg - SubQ heparin - supportive care (2) GI bleed ICD Codes: K92.2 - Gastrointestinal hemorrhage, unspecified Status: Acute Plan: - see above (3) Acute worsening of stage 4 chronic kidney disease ICD Codes: N28.9 - Disorder of kidney and ureter, unspecified; N18.4 - Chronic kidney disease, stage 4 (severe) Status: Acute Plan: Acute worsening of stage 4 chronic kidney disease - a/ckd - comgmt with Nephrology, Dr. Block - Cr/GFR continue to improve - Cr 4.73 (10/08), 3.59 (10/11), 3.41 (10/12), 3.74 (10/04) - GFR 16 (10/08), 22 (10/11), 23 (10/12) - encourage PO intake - observe (4) Skin ulcer ICD Codes: L98.499 - Non-pressure chronic ulcer of skin of other sites with unspecified severity Status: Chronic Plan: Skin ulcer - case d/w Dr. Zuri Loya (10/10). - santyl - wound culture (10/10) --> E coli and Proteus mirabilis resistant to Levaquin - will DC ciprofloxin/doxycycline - Start Rocephin - Vascular Surgery Consult requested. Case d/w Dr. Victor. He will consult. - obtain segmental Doppler study reviewed conclusion: Normal CURT and TBI on the right. Abnormal TBI on the left. Multiple segments that could not be occluded in the left lower extremity possibly representing severely calcified vessels. CURT could not be calculated. As the patient is symptomatic in the left lower extremity, CTA abdomen with run off recommended. - Can NOT obtain CTA with runoff at this time d/t ARF - s/p debridement and wound vac placement (10/13) - DC to SNF with wound vac (5) Sleep apnea ICD Codes: G47.30 - Sleep apnea, unspecified Status: Chronic Plan: - Pt will need re-evaluation with sleep study as outpt. - Patient was able to use BiPAP last night appears awake and alert today - patient would benefit from BiPap at DC (6) HTN (hypertension) ICD Codes: I10 - Essential (primary) hypertension Status: Chronic Plan: HTN (hypertension) - metoprolol 50 mg BID, hydralazine 100mg PO Q8H and Clonidine PRN - BP continues to runs high will add Nifedipine 60 mg PO BID - Monitor Assessment and Plan Patient examined. Assessment and plan formulated with Sandee Perez PA-C. I agree with the above. Pt was able to tolerate wearing Bipap last night. Today is the most alert that I have seen pt. All previous days this week, pt was falling asleep as I spoke to him. Pt needs to continue on BiPAP/CPAP at night. pt will need outpt w/u for [facility]. LLE wound debrided in the OR with placement of wound VAC. Pt's blood pressure was still running too high today. Procardia XL 60mg BID added to current BP regimen. Will observe response. Problem Qualifiers (1) GI bleed: Qualified Codes: K92.2 - Gastrointestinal hemorrhage, unspecified (2) Skin ulcer: Qualified Codes: L98.492 - Non-pressure chronic ulcer of skin of other sites with fat layer exposed (3) Sleep apnea: Qualified Codes: G47.30 - Sleep apnea, unspecified (4) HTN (hypertension): Qualified Codes: I10 - Essential (primary) hypertension Sandee Perez Oct 14, 2017 18:13 González Tierney DO Oct 14, 2017 21:38
[2017-10-14] MEDS: NIFEdipine 60 MG SUSTAINED RELEASE TAB PO SCH (19:45)
[2017-10-15] VITALS (14 sets, daily range): BP systolic 122–200; BP diastolic 68–141; PULSE 73–88; RESP 16–22; TEMP 97.9–98.9; O2SAT 96–100
[2017-10-15] MEDS: cloNIDine HCL 0.1 MG TAB PO PRN
[2017-10-15 05:38] LABS: AUTOMATED NEUTROPHIL # 6.4 TH/MM3 (1.8-7.7); BASOPHIL # 0.1 TH/MM3 (0-0.2); BASOPHIL % 0.8 % (0.0-2.0); EOSINOPHIL # 0.3 TH/MM3 (0-0.4); MEAN CELL VOLUME 86.9 FL (80.0-100.0); MEAN CORPUSCULAR HEMOGLOBIN 29.3 PG (27.0-34.0); MEAN CORPUSCULAR HGB CONC 33.7 % (32.0-36.0); MONO % 7.1 % (0.0-8.0); MONOCYTE # 0.6 TH/MM3 (0-0.9); NEUT % 77.1 % (16.0-70.0); PLATELET COUNT 214 TH/MM3 (150-450); RED CELL DISTRIBUTION WIDTH 17.5 % (11.6-17.2); WHITE BLOOD COUNT 8.4 TH/MM3 (4.0-11.0)
[2017-10-15] MEDS: hydrALAZINE HCL 100 MG TAB PO SCH ×3 (05:40→21:50)
[2017-10-15] MEDS: ACETAMINOPHEN/HYDROcodone 325 MG/10 MG TAB PO PRN (05:40)
[2017-10-15] MEDS: HEPARIN SODIUM - SQ 10,000 UNITS/ML VIAL SQ SCH ×3 (05:41→21:50)
[2017-10-15 05:51] LABS: BICARBONATE 23.3 MEQ/L (21.0-32.0); CALCIUM 7.8 MG/DL (8.5-10.1); CREATININE 3.27 MG/DL (0.60-1.30); MAGNESIUM 2.1 MG/DL (1.5-2.5); PHOSPHORUS 2.9 MG/DL (2.5-4.9)
[2017-10-15 05:52] LABS: COMPLEMENT C4 27 MG/DL (10-40)
[2017-10-15 05:58] LABS: HEMOGLOBIN 6.7 GM/DL (13.0-17.0)
[2017-10-15] MEDS: SODIUM CHLORIDE 0.9% FLUSH 10 ML FLUSH IV FLUSH SCH ×2 (09:00→21:50)
[2017-10-15] MEDS: COLLAGENASE OINT 30 GM TUBE TOPICAL SCH (09:00)
[2017-10-15] MEDS: DOCUSATE SODIUM 50 MG/SENNA 8.6 MG TAB PO SCH ×2 (10:16→20:12)
[2017-10-15] MEDS: NIFEdipine 60 MG SUSTAINED RELEASE TAB PO SCH ×2 (10:17→20:12)
[2017-10-15] MEDS: PANTOPRAZOLE SOD 40 MG DELAYED RELEASE TAB PO SCH (10:17)
[2017-10-15] MEDS: ISOSORBIDE DINITRATE 20 MG TAB PO SCH ×3 (10:17→18:00)
[2017-10-15] MEDS: CHOLECALCIFEROL (VIT D3) 5000 UNIT CAP PO SCH (10:17)
[2017-10-15] MEDS: METOPROLOL TARTRATE 50 MG TAB PO SCH ×2 (10:23→20:12)
[2017-10-15] MEDS ORDERED: LIDOCAINE HCL 1% PF 5 ML SYRINGE OTHER ONE (12:00)
[2017-10-15] MEDS ORDERED: SUCCINYLCHOLINE CHLORIDE 100 MG/5 ML SYRINGE IV PUSH ONE (12:00)
[2017-10-15] MEDS ORDERED: PROPOFOL 200 MG/20 ML AMP IV ONE (12:00)
--- NOTE | 2017-10-15 12:40 | HHI.PR ---
Subjective Remarks Patient upset that he is NPO hgb this AM 6.7 reports stool last night he did not look at the stool, he is unsure of stool color Objective Vitals Vital Signs Date Time Temp Pulse Resp B/P (MAP) Pulse Ox O2 Delivery O2 Flow Rate FiO2 10/15/17 08:15 98.0 75 22 143/72 (95) 97 10/15/17 04:00 98.3 84 18 175/96 (122) 96 10/15/17 03:57 80 10/15/17 01:47 98 35 10/15/17 01:47 98 BiPAP 35 10/15/17 00:00 98.2 78 18 200/141 (160) 99 168/101 (123) 10/15/17 00:00 78 10/14/17 20:00 98.2 76 20 164/94 (117) 97 10/14/17 20:00 74 10/14/17 19:00 Room Air 10/14/17 16:00 98.2 75 22 191/103 (132) 95 10/14/17 16:00 77 10/14/17 13:29 98 BiPAP 21 Result Diagram: 10/15/17 0516 10/15/17 0516 Other Results Laboratory Tests Test 10/14/17 06:35 10/15/17 05:16 Blood Urea Nitrogen 67 MG/DL 88 MG/DL Creatinine 3.74 MG/DL 3.27 MG/DL Random Glucose 114 MG/DL 104 MG/DL Albumin 2.2 GM/DL Calcium Level 8.5 MG/DL 7.8 MG/DL Phosphorus Level 4.7 MG/DL 2.9 MG/DL Sodium Level 144 MEQ/L 147 MEQ/L Potassium Level 4.7 MEQ/L 4.7 MEQ/L Chloride Level 111 MEQ/L 114 MEQ/L Carbon Dioxide Level 24.0 MEQ/L 23.3 MEQ/L Anion Gap 9 MEQ/L 10 MEQ/L Estimat Glomerular Filtration Rate 21 ML/MIN 25 ML/MIN White Blood Count 8.4 TH/MM3 Red Blood Count 2.30 MIL/MM3 Hemoglobin 6.7 GM/DL Hematocrit 20.0 % Mean Corpuscular Volume 86.9 FL Mean Corpuscular Hemoglobin 29.3 PG Mean Corpuscular Hemoglobin Concent 33.7 % Red Cell Distribution Width 17.5 % Platelet Count 214 TH/MM3 Mean Platelet Volume 9.0 FL Neutrophils (%) (Auto) 77.1 % Lymphocytes (%) (Auto) 12.0 % Monocytes (%) (Auto) 7.1 % Eosinophils (%) (Auto) 3.0 % Basophils (%) (Auto) 0.8 % Neutrophils # (Auto) 6.4 TH/MM3 Lymphocytes # (Auto) 1.0 TH/MM3 Monocytes # (Auto) 0.6 TH/MM3 Eosinophils # (Auto) 0.3 TH/MM3 Basophils # (Auto) 0.1 TH/MM3 CBC Comment DIFF FINAL Differential Comment Magnesium Level 2.1 MG/DL Total Creatine Kinase 58 U/L Total Protein 5.2 GM/DL Complement C3 83 MG/DL Complement C4 27 MG/DL Imaging Last Impressions Abdomen/Pelvis CT 10/07/172052 Signed Impressions: Service Date/Time: Tuesday, October 07, 2017 21:19 - CONCLUSION: 1. No acute abnormality seen. 2. Colonic diverticula. Cruz Guadarrama MD Objective Remarks GENERAL: This is a well-nourished, well-developed patient, in no apparent distress. SKIN: wound vac to left lower extremity CARDIOVASCULAR: Regular rate and rhythm RESPIRATORY: Clear to auscultation. Breath sounds equal bilaterally. GASTROINTESTINAL: obese, distended, decreased bowel sounds x 4, MUSCULOSKELETAL: large, circumferential wound at LLE above the ankle with dressing present dry and intact NEURO: Alert & Oriented x4 to person, place, time, situation. Moves all ext x4 Procedures s/p EGD (10/08). Pt found to have gastric ulcers. Pt underwent epi/clip s/p debridement and wound vac placement (10/13) A/P Problem List: (1) Acute blood loss anemia ICD Codes: D62 - Acute posthemorrhagic anemia Status: Acute Plan: - Pt admitted with acute GIB - Pt had been using goody powder - Pt had EGD (10/08). Pt found to have gastric ulcers - Pt underwent epi/clip - Pt admitted to [facility] with Hg 4.5 (10/07) - Pt has received 8 units PRBCs - Hg 7.4 (10/10). last 2 units PRBCs transfused (10/10) - Hg 9.2 (10/11) - Hg 9.0 (10/12) - Repeat Hg in AM - PO protonix - KUB (10/11) --> mild ileus - passing gas positive BM (10/11) - advance to soft diet - DVT prophylaxis - SCD to right leg - (10/16) DC SubQ heparin - (10/15) hgb 6.7 PRBC ordered, hemocult stool requested - repeat H&H after blood transfused - Case discussed with GI who is planning repeat EGD today - Patient NPO - change Protonix to 40 mg IV BID - CBC in AM - supportive care (2) GI bleed ICD Codes: K92.2 - Gastrointestinal hemorrhage, unspecified Status: Acute Plan: - see above (3) Acute worsening of stage 4 chronic kidney disease ICD Codes: N28.9 - Disorder of kidney and ureter, unspecified; N18.4 - Chronic kidney disease, stage 4 (severe) Status: Acute Plan: - a/ckd - comgmt with Nephrology, Dr. Block - Cr/GFR continue to improve - Cr 4.73 (10/08), 3.59 (10/11), 3.41 (10/12) - GFR 16 (10/08), 22 (10/11), 23 (10/12) - encourage PO intake - observe (4) Skin ulcer ICD Codes: L98.499 - Non-pressure chronic ulcer of skin of other sites with unspecified severity Status: Chronic Plan: - case d/w Dr. Zuri Loya (10/10). - santyl - wound culture (10/10) --> E coli and Proteus mirabilis resistant to Levaquin - will DC ciprofloxin/doxycycline - Rocephin - Vascular Surgery Consult requested. Case d/w Dr. Victor. He will consult. - obtain segmental Doppler study reviewed conclusion: Normal CURT and TBI on the right. Abnormal TBI on the left. Multiple segments that could not be occluded in the left lower extremity possibly representing severely calcified vessels. CURT could not be calculated. As the patient is symptomatic in the left lower extremity, CTA abdomen with run off recommended. - Can NOT obtain CTA with runoff at this time d/t ARF - Plan for debridement and wound vac placement with Podiatry later today. (5) Sleep apnea ICD Codes: G47.30 - Sleep apnea, unspecified Status: Chronic Plan: - Pt will need re-evaluation with polysomnogram outpt. (6) HTN (hypertension) ICD Codes: I10 - Essential (primary) hypertension Status: Chronic Plan: - metoprolol - observe Assessment and Plan Patient examined. Assessment and plan formulated with Sandee Perez PA-C. I agree with the above. worsening anemia. Pt denies tarry stools or BRB per rectum. Case d/w GI, Dr. Carrillo. Pt will undergo repeat EGD. Problem Qualifiers (1) GI bleed: Qualified Codes: K92.2 - Gastrointestinal hemorrhage, unspecified (2) Skin ulcer: Qualified Codes: L98.492 - Non-pressure chronic ulcer of skin of other sites with fat layer exposed (3) Sleep apnea: Qualified Codes: G47.30 - Sleep apnea, unspecified (4) HTN (hypertension): Qualified Codes: I10 - Essential (primary) hypertension Sandee Perez Oct 15, 2017 12:40 González Tierney DO Oct 17, 2017 04:27
[2017-10-15] MEDS: PANTOPRAZOLE SODIUM 40 MG VIAL IV PUSH SCH ×2 (13:34→21:50)
[2017-10-15 13:38] LABS: AUTOMATED NEUTROPHIL # 7.1 TH/MM3 (1.8-7.7); BASOPHIL % 0.5 % (0.0-2.0); EOSINOPHIL # 0.3 TH/MM3 (0-0.4); EOSINOPHIL % 3.2 % (0.0-4.0); LYMPH % 10.9 % (9.0-44.0); MEAN CELL VOLUME 87.9 FL (80.0-100.0); MEAN PLATELET VOLUME 9.3 FL (7.0-11.0); MONO % 8.1 % (0.0-8.0); MONOCYTE # 0.7 TH/MM3 (0-0.9); NEUT % 77.3 % (16.0-70.0); PLATELET COUNT 224 TH/MM3 (150-450); RED BLOOD COUNT 2.05 MIL/MM3 (4.50-5.90); RED CELL DISTRIBUTION WIDTH 17.4 % (11.6-17.2); WHITE BLOOD COUNT 9.2 TH/MM3 (4.0-11.0)
[2017-10-15 14:04] LABS: HEMOGLOBIN 5.9 GM/DL (13.0-17.0)
--- NOTE | 2017-10-15 14:33 | HHI.NPPN ---
Subjective General Problems: Anemia, Edema, Hypertension Renal Failure: Chronic, Stage IV History of Present Illness 46 year old male with a past medical history of chronic kidney disease stage 4, Hypertension, sleep apnea, chronic left lower extremity leg ulcer, obesity, and CHF. Patient presented to the ED with abdominal pain and maroon stools. He was found to have a hemoglobin of 4.5. His blood pressure is elevated now but per records when EMS arrived he was found to be hypotensive with a SBP in the 80 's. Nephrology is consulted for acute on chronic renal failure with a creatinine of 4.72 and potassium of 5.5. 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 Additional Remarks No acute complaints. Acute anemia - transfusion ordered, EGD planned Review of Systems General Constitutional: Fatigue Respiratory Respiratory Remarks Denies SOB Cardiovascular Cardiac: Edema Gastrointestinal GI Remarks denies abdominal pain Objective Data Data Vital Signs Date Time Temp Pulse Resp B/P (MAP) Pulse Ox O2 Delivery O2 Flow Rate FiO2 10/15/17 12:59 98.9 88 22 122/68 97 10/15/17 08:15 98.0 75 22 143/72 (95) 97 10/15/17 04:00 98.3 84 18 175/96 (122) 96 10/15/17 03:57 80 10/15/17 01:47 98 35 10/15/17 01:47 98 BiPAP 35 10/15/17 00:00 98.2 78 18 200/141 (160) 99 168/101 (123) 10/15/17 00:00 78 10/14/17 20:00 98.2 76 20 164/94 (117) 97 10/14/17 20:00 74 10/14/17 19:00 Room Air 10/14/17 16:00 98.2 75 22 191/103 (132) 95 10/14/17 16:00 77 -: 10/15/17 1249 10/15/17 0516 Physical Exam General Appearance: Well Nourished, No Acute Distress, Comfortable Throat Throat Exam: Oral Mucosa Winnie & Moist Neck Neck Exam: Neck Supple Pulmonary Resp Exam: Breath Sounds Equal, No Distress, Rhonchi, Decreased Bases, Diminished Breath Sounds Cardiology CV Exam: Regular, Normal Sinus Rhythm Gastrointestinal/Abdomen GI Exam: Soft, Non-Tender, Bowel Sounds Present Integumentary Skin Exam: Clear, Warm Extremeties Extremities Exam: Trace Edema (left lower leg with dressing.) Neurologic Neuro Exam: Alert, Awake, Oriented Psychiatric Psych Exam: Appropriate Responses Assessment/Plan Problem List: (1) Acute worsening of stage 4 chronic kidney disease ICD Codes: N28.9 - Disorder of kidney and ureter, unspecified; N18.4 - Chronic kidney disease, stage 4 (severe) Status: Acute Plan: Acute kidney injury with admission creatinine of 4.72 and potassium of 5.5 from most likely hypotension with blood loss and NSAID use. Chronic kidney disease stage 4 from most likely uncontrolled hypertension. 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 CT of abdomen is noted to have kidney of normal size and shape. There is no mass, stone or hydronephrosis. Plan Creatinine improvin.7 -> 3.2 today Follow the urine out put and BMP. Avoid Nephrotoxins. Blood pressure better today Acute anemia - EGD planned, transfusion today. Continue to monitor. (2) Sleep apnea ICD Codes: G47.30 - Sleep apnea, unspecified Status: Chronic (3) HTN (hypertension) ICD Codes: I10 - Essential (primary) hypertension Status: Chronic Plan: Will monitor Hydralazine increased previously (4) Skin ulcer ICD Codes: L98.499 - Non-pressure chronic ulcer of skin of other sites with unspecified severity Status: Chronic Plan: Dressing on Wound care has been consulted (5) Acute blood loss anemia ICD Codes: D62 - Acute posthemorrhagic anemia Status: Acute Plan: GI consulted On Protonix transfusion today Problem Qualifiers (1) Sleep apnea: Qualified Codes: G47.30 - Sleep apnea, unspecified (2) HTN (hypertension): Qualified Codes: I10 - Essential (primary) hypertension (3) Skin ulcer: Qualified Codes: L98.492 - Non-pressure chronic ulcer of skin of other sites with fat layer exposed Dionicio Booker MD Oct 15, 2017 14:33
[2017-10-15] MEDS ORDERED: EPINEPHrine HCL (1:10,000) 1 MG/10 ML SYRINGE SQ ONE (16:18)
[2017-10-15] MEDS ORDERED: PROPOFOL 1000 MG/100 ML INJ 100 ML ONE ×2 (16:48→18:08)
--- NOTE | 2017-10-15 16:59 | PD.PROCEDR ---
GI Procedure PROCEDURE PERFORMED Upper endoscopy with bleeding controlled by injection INDICATION FOR PROCEDURE Drop in hemoglobin, GI bleed, anemia PROCEDURE: The procedure, risks and benefits were discussed with Mr. Jackson and informed consent was obtained. Anesthesia sedated him after intubation. He was placed in the left lateral decubitus position. EGD: The Pentax videoscope was introduced through the oropharynx and advanced to the second portion of the duodenum under direct visualization. Retroflexion was performed in the stomach. There was residual food in the stomach, there was large amount of clots in the antrum and the bulb most likely rebleeding ulcer either in the antrum or pyloric channel, I could not see clearly the active bleeding so after flushing vigorously I thought that there might be bleeding from the old bleeding site and I injected 9 cc of epinephrine empirically to try to slow the bleeding down ESTIMATED BLOOD LOSS: 50 cc SPECIMENS REMOVED: None COMPLICATIONS: None IMPRESSION: Esophagus normal Stomach with residual food, active bleeding most likely either the antrum or pyloric channel injection of epinephrine PLAN: Interventional radiology for angiogram and embolization The patient NG tube intubated at this time Transfuse 2 units of packed RBC I discussed the case with MD MELVIN is coming to perform double procedure Nikko Carrillo MD Oct 15, 2017 16:59
[2017-10-15] MEDS: cefTRIAXone INJ 1,000 MG in SODIUM CHLORIDE 0.9% INJ 100 ML IV SCH (17:00)
[2017-10-15] MEDS ORDERED: IODIXANOL 320 MG/ML 50 ML VIAL (for RAD SPEC) I-ARTERIAL ONE (18:00)
--- NOTE | 2017-10-15 18:42 | PD.RAD ---
Post Procedure Progress Note Pre Procedure Diagnosis: (1) Acute kidney injury superimposed on chronic kidney disease (2) GI bleed Post Procedure Diagnosis: (1) GI bleed (2) Acute kidney injury superimposed on chronic kidney disease Procedure Date: Oct 15, 2017 Supervising Radiologist: Pb Orosco Proceduralist/Assist: Joana Niño, RT(R), Lotus Trinh, RT(R) Anesthesia: Local, Analgesia, Conscious Sedation Plan of Activity Patient to Unit: PACU Patient Condition: Poor See PACS Report for procedural detail/treatment Vascular-Arterial Procedure Procedure 1 Procedure Site: Celiac (GDA) Procedure(s): Angiogram, Embolization Access Access Site(s): Right Femoral Artery Closure Site(s): Right vascular closure device (PerClose) Findings: Emperic embolization GDA with coils and gelfoam Central Venous Access Device Procedure 1 Right Internal Jugular Hemodialysis Catheter Non-Tunneled dual lumen [place]: 14 PICC Line Length (cm): 20 Pb Orosco MD Oct 15, 2017 18:42
[2017-10-15] MEDS ORDERED: SODIUM CHLORIDE 0.9% FLUSH 10 ML FLUSH IV FLUSH PRN (18:45)
[2017-10-15] MEDS ORDERED: HEPARIN SODIUM - IV 2,000 UNITS/2 ML VIAL IV FLUSH PRN (18:45)
[2017-10-15] MEDS ORDERED: RESP: ALBUTEROL 2.5 MG/IPRATROPIUM 0.5 MG NEB (PRN) INH (19:15)
[2017-10-15] MEDS: CHLORHEXIDINE 0.12% (ORAL KIT) 15 ML CUP MT SCH (20:00)
[2017-10-15] MEDS: RESP: ALBUTEROL 2.5 MG/IPRATROPIUM 0.5 MG NEB (SCH) INH (20:44)
--- NOTE | 2017-10-15 20:57 | PD.CONS ---
HPI Service Critical Care Medicine Consult Requested By Anesthesia service Reason for Consult management of post-operative respiratory failure Primary Care Physician Blayne Zavala M.D. History of Present Illness This is a 46yM who was admitted on 10/07/2017 with active GI bleeding. he continued to have hemodynamically significant bleeding and underwent EGD today which demonstrated active duodenal ulcer bleeding which was not able to be controlled by endoscopic means. He then went emergently to IR for GDA embolization which was successful. He additionally has acute on chronic kidney disease which has worsened due to his acute illness and had a dialysis catheter placed today for renal replacement therapy. Post initial radiology embolization , the patient remains intubated with persistent hypoxic and hypercarbic respiratory failure. He is also actively receiving blood transfusions for anemia of acute blood loss along with hemorrhagic shock. Critical care medicine is consulted to assist and manage his multiorgan system dysfunction, his restaurant failure, his hemorrhagic shock, and his severe life-threatening anemia with active bleeding. When I evaluated the patient, he is intubated and sedated. No additional information is available from the patient. Review systems is unobtainable. The remainder of the history is obtained from review of the medical record. Review of Systems ROS Limitations: Clinical Condition, Intubated, Altered Mental Status Past Family Social History Allergies: Coded Allergies: No Known Allergies (Verified Allergy, Unknown, 10/07/17) Uncoded Allergies: nka (Allergy, Unknown, 02/26/03) Past Medical History CHF anemia chronic kidney disease, stage IV hypertension chronic left lower extremity large ulcer Past Surgical History AAA repair surgery to left leg ulcer Reported Medications Hydrocodone-Acetamin 10-325 mg (Hydrocodone/Acetaminophen) 10 Mg-325 Mg Tablet 1 Tab PO Q6H PRN Doxycycline Hyclate 100 Mg Tab 100 Mg PO Q12HR 7 Days Spironolactone 25 Mg Tab 25 Mg PO HS Isosorbide Dinitrate 20 Mg Tab 20 Mg PO TID Hydralazine (Hydralazine HCl) 100 Mg Tab 100 Mg PO TID Take with meals Metoprolol Tartrate 50 Mg Tab 50 Mg PO DAILY Ciprofloxacin (Ciprofloxacin HCl) 250 Mg Tab 250 Mg PO BID Terazosin (Terazosin HCl) 1 Mg Cap 1 Mg PO HS Tramadol (Tramadol HCl) 50 Mg Tab 50 Mg PO Q8H PRN Aspirin Low Dose (Aspirin) 81 Mg Chew 81 Mg CHEW DAILY Active Ordered Medications See MAR Family History Unknown unobtainable secondary to clinical condition the patient Social History Unknown and unobtainable secondary to the clinical condition the patient Physical Exam Vital Signs Vital Signs Date Time Temp Pulse Resp B/P (MAP) Pulse Ox O2 Delivery O2 Flow Rate FiO2 10/15/17 20:45 100 40 10/15/17 20:34 98.1 74 16 142/80 100 10/15/17 17:42 99 Nasal Cannula 2.00 10/15/17 17:00 100 100 10/15/17 17:00 83 16 111/60 (77) 100 Mechanical Ventilator 50 10/15/17 17:00 100 40 10/15/17 16:49 98.0 83 16 103/55 (71) 100 Mechanical Ventilator 100 10/15/17 12:59 98.9 88 22 122/68 97 10/15/17 12:16 97.9 73 22 161/96 (117) 100 10/15/17 08:15 98.0 75 22 143/72 (95) 97 10/15/17 04:00 98.3 84 18 175/96 (122) 96 10/15/17 03:57 80 10/15/17 01:47 98 35 10/15/17 01:47 98 BiPAP 35 10/15/17 00:00 98.2 78 18 200/141 (160) 99 168/101 (123) 10/15/17 00:00 78 Physical Exam GENERAL: Middle-age appearing male, lying in bed, intubated, sedated, critically ill HEENT: Normocephalic. Atraumatic. Pupils equal, round, reactive, conjugate. Mucous membranes are moist. Conjunctive are pale NECK: Trachea is midline. There is no JVD. CHEST: Equal chest rise. PRVC. FiO2 40%. CARDIOVASCULAR: Normal rate, regular rhythm. Sinus. ABDOMEN: Soft, nontender, nondistended. No guarding. MUSCULOSKELETAL: Pulses 2+. No peripheral edema. NEUROLOGICAL: RASS -3. Withdraws to pain. Does not follow commands. Laboratory Laboratory Tests Test 10/15/17 05:16 10/15/17 12:49 White Blood Count 8.4 9.2 Red Blood Count 2.30 2.05 Hemoglobin 6.7 5.9 Hematocrit 20.0 18.0 Mean Corpuscular Volume 86.9 87.9 Mean Corpuscular Hemoglobin 29.3 29.0 Mean Corpuscular Hemoglobin Concent 33.7 33.0 Red Cell Distribution Width 17.5 17.4 Platelet Count 214 224 Mean Platelet Volume 9.0 9.3 Neutrophils (%) (Auto) 77.1 77.3 Lymphocytes (%) (Auto) 12.0 10.9 Monocytes (%) (Auto) 7.1 8.1 Eosinophils (%) (Auto) 3.0 3.2 Basophils (%) (Auto) 0.8 0.5 Neutrophils # (Auto) 6.4 7.1 Lymphocytes # (Auto) 1.0 1.0 Monocytes # (Auto) 0.6 0.7 Eosinophils # (Auto) 0.3 0.3 Basophils # (Auto) 0.1 0.0 CBC Comment DIFF FINAL DIFF FINAL Differential Comment Blood Urea Nitrogen 88 Creatinine 3.27 Random Glucose 104 Calcium Level 7.8 Phosphorus Level 2.9 Magnesium Level 2.1 Sodium Level 147 Potassium Level 4.7 Chloride Level 114 Carbon Dioxide Level 23.3 Anion Gap 10 Estimat Glomerular Filtration Rate 25 Total Creatine Kinase 58 Total Protein 5.2 Complement C3 83 Complement C4 27 Date/Time Source Procedure Growth Status 10/10/17 15:45 Wound Leg Gram Stain - Final Complete 10/10/17 15:45 Wound Culture - Final Escherichia Coli Proteus Mirabilis Complete Result Diagram: 10/15/17 1249 10/15/17 0516 Imaging Last Impressions Abdomen X-Ray 10/10/17 0000 Signed Impressions: Service Date/Time: Tuesday, October 10, 2017 15:26 - CONCLUSION: 1. Findings of mild small bowel ileus in the lower quadrant. Constantino Hagen MD Abdomen/Pelvis CT 10/07/172052 Signed Impressions: Service Date/Time: Saturday, October 07, 2017 21:19 - CONCLUSION: 1. No acute abnormality seen. 2. Colonic diverticula. Cruz Guadarrama MD Assessment and Plan Assessment and Plan Assessment: 46-year-old male with active upper GI bleeding and associated hemorrhagic shock, anemia secondary to acute blood loss, and acute on chronic renal failure requiring now renal replacement therapy. Remains critically ill with multiorgan dysfunction including hypoxic respiratory failure, hemorrhagic shock, acute kidney injury. Agree with remaining intubated. We will continue transfusions of balanced blood products and serial H&H monitoring. Active problems: Hemorrhagic shock Acute hypoxic and hypercarbic respiratory failure Anemia secondary to acute blood loss Coagulopathy secondary to acute blood loss and consumption Uremic platelet dysfunction Plan: Propofol and fentanyl for goal RASS -2 Wean FiO2 for goal SPO2 greater than 90% No weaning of mechanical ventilation until hemorrhagic shock is controlled Vent bundle Head of bed elevated Nebs 2 units PRBC stat 1 followed by a stat CBC, coags, fibrinogen Would have low threshold to give DDAVP if bleeding continues for uremic platelet dysfunction Trend H&H Daily CBC Daily BMP Appreciate nephrology consultation Will likely need renal replacement therapy soon given large volume transfusions Large-bore P IVs Admit to ICU This patient remains critically ill with one or more organ systems which are or may become a threat to life. I have spent in excess of 37 minutes discontinuously in the care and management of this patient. This time is exclusive of procedures, and includes, but is not limited to, evaluation of the patient, review of the medical record, discussions with family, consultants, nursing staff, or respiratory therapy, and documentation in the medical record. Callum Villanueva MD Oct 15, 2017 20:57
[2017-10-15] MEDS: PROPOFOL 1000 MG/100 ML INJ 100 ML IV PRN ×2 (21:50→23:05)
[2017-10-15 23:14] LABS: HEMATOCRIT 22.3 % (39.0-51.0); HEMOGLOBIN 7.4 GM/DL (13.0-17.0); MEAN CELL VOLUME 85.9 FL (80.0-100.0); MEAN CORPUSCULAR HEMOGLOBIN 28.5 PG (27.0-34.0); MEAN CORPUSCULAR HGB CONC 33.2 % (32.0-36.0); MEAN PLATELET VOLUME 8.9 FL (7.0-11.0); PLATELET COUNT 199 TH/MM3 (150-450); RED BLOOD COUNT 2.59 MIL/MM3 (4.50-5.90); RED CELL DISTRIBUTION WIDTH 16.1 % (11.6-17.2); WHITE BLOOD COUNT 11.9 TH/MM3 (4.0-11.0)
[2017-10-15 23:41] LABS: INTERNATIONAL NORMALIZED RATIO 1.1 RATIO; PROTHROMBIN TIME - PATIENT 10.7 SEC (9.8-11.6)
[2017-10-16] VITALS (18 sets, daily range): BP systolic 138–173; BP diastolic 73–89; PULSE 76–94; RESP 18–24; TEMP 98.3–99.1; O2SAT 99–100
[2017-10-16] MEDS: PROPOFOL 1000 MG/100 ML INJ 100 ML IV PRN ×5 (01:24→08:15)
[2017-10-16] MEDS ORDERED: SODIUM CHLOR 0.9% 250 ML INJ 250 ML IV ONE (01:30)
[2017-10-16] MEDS ORDERED: DESMOPRESSIN INJ 20 MCG in SODIUM CHLORIDE 0.9% INJ 50 ML IV ONE (01:30)
[2017-10-16] MEDS: RESP: ALBUTEROL 2.5 MG/IPRATROPIUM 0.5 MG NEB (SCH) INH ×4 (03:36→21:31)
[2017-10-16 04:41] LABS: HEMATOCRIT 28.1 % (39.0-51.0); HEMOGLOBIN 9.4 GM/DL (13.0-17.0)
--- NOTE | 2017-10-16 05:13 | RADRPT ---
EXAM DATE/TIME: 10/16/2017 03:58 [facility] COMPARISON: CHEST SINGLE AP, March 23, 2017, 17:40. INDICATIONS : Cough MEDICAL HISTORY : Cardiovascular disease. Hypertension. SURGICAL HISTORY : Abdominal aortic aneurysm repair ENCOUNTER: Subsequent ACUITY: 1 week PAIN SCORE: Non-responsive. LOCATION: Bilateral chest FINDINGS: ET tube tip well above the renetta. Right large bore central line tip projects at the cavoatrial junc tion. The heart is enlarged, similar to prior 2017. There is consolidation in the left lower lung w ith air bronchograms and loss of delineation of the left hemidiaphragm. The right lung is clear. CONCLUSION: 1. Left lower lobe consolidation. 2. ET and central line tips in good position. Lawrence Raya MD on October 16, 2017 at 5:09 Board Certified Radiologist. This report was verified electronically.
[2017-10-16] MEDS: hydrALAZINE HCL 100 MG TAB PO SCH ×3 (05:49→21:17)
[2017-10-16] MEDS: HEPARIN SODIUM - SQ 10,000 UNITS/ML VIAL SQ SCH ×3 (05:49→21:18)
[2017-10-16] MEDS: CHLORHEXIDINE 0.12% (ORAL KIT) 15 ML CUP MT SCH ×2 (08:55→20:00)
[2017-10-16] MEDS: COLLAGENASE OINT 30 GM TUBE TOPICAL SCH (09:00)
[2017-10-16] MEDS: NIFEdipine 60 MG SUSTAINED RELEASE TAB PO SCH ×2 (10:08→21:17)
[2017-10-16] MEDS: ISOSORBIDE DINITRATE 20 MG TAB PO SCH ×3 (10:09→17:32)
[2017-10-16] MEDS: CHOLECALCIFEROL (VIT D3) 5000 UNIT CAP PO SCH (10:09)
[2017-10-16] MEDS: PANTOPRAZOLE SODIUM 40 MG VIAL IV PUSH SCH ×2 (10:09→21:17)
[2017-10-16] MEDS: METOPROLOL TARTRATE 50 MG TAB PO SCH ×2 (10:09→21:17)
[2017-10-16] MEDS: DOCUSATE SODIUM 50 MG/SENNA 8.6 MG TAB PO SCH ×2 (10:10→21:17)
[2017-10-16] MEDS: SODIUM CHLORIDE 0.9% FLUSH 10 ML FLUSH IV FLUSH SCH ×2 (10:10→21:17)
[2017-10-16] MEDS: ACETAMINOPHEN/HYDROcodone 325 MG/10 MG TAB PO PRN ×2 (11:04→17:33)
--- NOTE | 2017-10-16 11:11 | HHI.CCPN ---
Subjective Remarks/Hospital Course This is a 46yM who was admitted on 10/07/2017 with active GI bleeding. he continued to have hemodynamically significant bleeding and underwent EGD today which demonstrated active duodenal ulcer bleeding which was not able to be controlled by endoscopic means. He then went emergently to IR for GDA embolization which was successful. He additionally has acute on chronic kidney disease which has worsened due to his acute illness and had a dialysis catheter placed today for renal replacement therapy. Post initial radiology embolization , the patient remains intubated with persistent hypoxic and hypercarbic respiratory failure. He is also actively receiving blood transfusions for anemia of acute blood loss along with hemorrhagic shock. Critical care medicine is consulted to assist and manage his multiorgan system dysfunction, his RESP failure, his hemorrhagic shock, and his severe life-threatening anemia with active bleeding. When I evaluated the patient, he is intubated and sedated. No additional information is available from the patient. Review systems is unobtainable. The remainder of the history is obtained from review of the medical record. SUBJ 10/16/17: Patient remains intubated sedated but wakes up easily follows commands. Hemodynamically stable hemoglobin 9.3 today. No further evidence of GI bleeding Objective Vital Signs Date Time Temp Pulse Resp B/P (MAP) Pulse Ox O2 Delivery O2 Flow Rate FiO2 10/16/17 09:38 100 Nasal Cannula 3 10/16/17 04:08 40 10/16/17 04:00 81 10/16/17 04:00 98.4 22 154/80 (104) Intake and Output 10/16/17 10/16/17 10/17/17 08:00 16:00 00:00 Intake Total 1075 ml 100 ml Output Total 1200 ml Balance -125 ml 100 ml Result Diagram: 10/16/17 0417 10/15/17 0516 Other Results Laboratory Tests Test 10/15/17 22:02 Blood Gas Puncture Site RT RADIAL Blood Gas Patient Temperature 98.6 Blood Gas HCO3 23 mmol/L (22-26) Blood Gas Base Excess -2.2 mmol/L (-2-2) Blood Gas Oxygen Saturation 95 % (90-100) Arterial Blood pH 7.34 (7.380-7.420) Arterial Blood Partial Pressure CO2 44 mmHg (38-42) Arterial Blood Partial Pressure O2 88 mmHg (61-120) Arterial Blood Oxygen Content 9.3 Vol % (12.0-20.0) Arterial Blood Carboxyhemoglobin 1.6 % (0-4) Arterial Blood Methemoglobin 1.4 % (0-2) Blood Gas Hemoglobin 6.9 G/DL (12.0-16.0) Oxygen Delivery Device VENTILATOR Blood Gas Ventilator Setting AC/14/550/PEEP5 Blood Gas Inspired Oxygen 40 % Imaging Last Impressions Abdomen X-Ray 10/10/17 0000 Signed Impressions: Service Date/Time: Tuesday, October 10, 2017 15:26 - CONCLUSION: 1. Findings of mild small bowel ileus in the lower quadrant. Constantino Hagen MD Abdomen/Pelvis CT 10/07/172052 Signed Impressions: Service Date/Time: Saturday, October 07, 2017 21:19 - CONCLUSION: 1. No acute abnormality seen. 2. Colonic diverticula. Cruz Guadarrama MD Objective Remarks GENERAL: Middle-age appearing male, lying in bed, intubated, sedated, ill appearing HEENT: Normocephalic. Atraumatic. Pupils equal, round, reactive, conjugate. Mucous membranes are moist. Conjunctive are pale NECK: Trachea is midline. There is no JVD. CHEST: Equal chest rise. PRVC. FiO2 40%. CARDIOVASCULAR: Normal rate, regular rhythm. Sinus. ABDOMEN: Soft, nontender, nondistended. No guarding. MUSCULOSKELETAL: Pulses 2+. No peripheral edema. NEUROLOGICAL: RASS -1. Wakes up easily follows commands A/P Assessment and Plan Assessment: 46-year-old male with active upper GI bleeding and associated hemorrhagic shock, anemia secondary to acute blood loss, and acute on chronic renal failure requiring now renal replacement therapy. Remains critically ill with multiorgan dysfunction including hypoxic respiratory failure, hemorrhagic shock, acute kidney injury. Agree with remaining intubated. We will continue transfusions of balanced blood products and serial H&H monitoring. Active problems: Hemorrhagic shock-resolved Acute hypoxic and hypercarbic respiratory failure-improving Anemia secondary to acute blood loss Coagulopathy secondary to acute blood loss and consumption Uremic platelet dysfunction Plan: Hold Propofol and fentanyl for weaning trial Wean FiO2 for goal SPO2 greater than 90% CPA trial with extubation Vent bundle, Head of bed elevated, Nebs s/p 2 units PRBC stat overnight. F/U CBC, coags, fibrinogen DDAVP if bleeding continues for uremic platelet dysfunction Trend H&H Daily CBC Daily BMP Appreciate nephrology consultation. Renal replacement therapy soon given large volume transfusions Large-bore P IVs Continue ICU Level 3 Zonia Arroyo MD Oct 16, 2017 11:11
--- NOTE | 2017-10-16 11:28 | HHI.NPPN ---
Subjective General Problems: Anemia, Edema, Hypertension Renal Failure: Chronic, Stage IV History of Present Illness 46 year old male with a past medical history of chronic kidney disease stage 4, Hypertension, sleep apnea, chronic left lower extremity leg ulcer, obesity, and CHF. Patient presented to the ED with abdominal pain and maroon stools. He was found to have a hemoglobin of 4.5. His blood pressure is elevated now but per records when EMS arrived he was found to be hypotensive with a SBP in the 80 's. Nephrology is consulted for acute on chronic renal failure with a creatinine of 4.72 and potassium of 5.5. 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 Additional Remarks No acute complaints. Embolization with IR yesterday with GI bleed (contrast exposure). Awake and alert today Review of Systems General Constitutional: Fatigue Respiratory Respiratory Remarks Denies SOB Cardiovascular Cardiac: Edema Gastrointestinal GI Remarks denies abdominal pain Objective Data Data 10/16/17 10/17/17 19:00 07:00 Intake Total 100 ml Balance 100 ml IV Total 100 ml Vital Signs Date Time Temp Pulse Resp B/P (MAP) Pulse Ox O2 Delivery O2 Flow Rate FiO2 10/16/17 09:38 100 Nasal Cannula 3 10/16/17 04:08 100 40 10/16/17 04:00 81 10/16/17 04:00 98.4 82 22 154/80 (104) 100 10/16/17 03:37 100 40 10/16/17 03:02 98.4 76 20 158/81 100 10/16/17 03:00 100 Mechanical Ventilator 40 10/16/17 02:37 98.4 78 21 157/82 100 10/16/17 02:22 98.3 78 20 159/81 100 10/16/17 01:36 100 40 10/16/17 00:00 98.8 76 24 138/73 (94) 100 10/16/17 00:00 77 10/15/17 23:00 100 Mechanical Ventilator 40 10/15/17 22:30 98.2 75 18 136/75 100 10/15/17 20:49 98.2 82 18 135/79 100 10/15/17 20:45 100 40 10/15/17 20:34 98.1 74 16 142/80 100 4/28/18 20:00 78 10/15/17 20:00 98.1 78 18 143/75 (97) 100 10/15/17 19:00 100 Mechanical Ventilator 40 10/15/17 17:42 99 Nasal Cannula 2.00 10/15/17 17:00 100 100 10/15/17 17:00 83 16 111/60 (77) 100 Mechanical Ventilator 50 10/15/17 17:00 100 40 10/15/17 16:49 98.0 83 16 103/55 (71) 100 Mechanical Ventilator 100 10/15/17 12:59 98.9 88 22 122/68 97 10/15/17 12:16 97.9 73 22 161/96 (117) 100 -: 10/16/17 0417 10/15/17 0516 Physical Exam General Appearance: Well Nourished, No Acute Distress, Comfortable Throat Throat Exam: Oral Mucosa [place] & Moist Neck Neck Exam: Neck Supple Pulmonary Resp Exam: Breath Sounds Equal, No Distress, Rhonchi, Decreased Bases, Diminished Breath Sounds Cardiology CV Exam: Regular, Normal Sinus Rhythm Gastrointestinal/Abdomen GI Exam: Soft, Non-Tender, Bowel Sounds Present Integumentary Skin Exam: Clear, Warm Extremeties Extremities Exam: Trace Edema (left lower leg with dressing.) Neurologic Neuro Exam: Alert, Awake, Oriented Psychiatric Psych Exam: Appropriate Responses Assessment/Plan Problem List: (1) Acute worsening of stage 4 chronic kidney disease ICD Codes: N28.9 - Disorder of kidney and ureter, unspecified; N18.4 - Chronic kidney disease, stage 4 (severe) Status: Acute Plan: Acute kidney injury with admission creatinine of 4.72 and potassium of 5.5 from most likely hypotension with blood loss and NSAID use. Chronic kidney disease stage 4 from most likely uncontrolled hypertension. 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 CT of abdomen is noted to have kidney of normal size and shape. There is no mass, stone or hydronephrosis. GI bleed - urgent embolization with IR yesterday ( contrast used) Plan Labs not available yet (nurses unable to draw blood, will retry today). Creatinine 3.7 -> 3.2 yesterday UOP maintained with 1.6L UOP/24 hours. Vascath placed with IR yesterday during embolization procedure, in case HD would be necessary. No need for HD at this time, continue to follow labs. Follow the urine out put and BMP. Avoid Nephrotoxins. Blood pressure stable (2) Sleep apnea ICD Codes: G47.30 - Sleep apnea, unspecified Status: Chronic (3) HTN (hypertension) ICD Codes: I10 - Essential (primary) hypertension Status: Chronic Plan: Will monitor Hydralazine increased previously (4) Skin ulcer ICD Codes: L98.499 - Non-pressure chronic ulcer of skin of other sites with unspecified severity Status: Chronic Plan: Dressing on Wound care has been consulted (5) Acute blood loss anemia ICD Codes: D62 - Acute posthemorrhagic anemia Status: Acute Plan: Hgb 5.9 -> 9.4 today, s/p embolization of GI bleed with IR. Problem Qualifiers (1) Sleep apnea: Qualified Codes: G47.30 - Sleep apnea, unspecified (2) HTN (hypertension): Qualified Codes: I10 - Essential (primary) hypertension (3) Skin ulcer: Qualified Codes: L98.492 - Non-pressure chronic ulcer of skin of other sites with fat layer exposed Dionicio Booker MD Oct 16, 2017 11:27
[2017-10-16 12:24] LABS: BICARBONATE 24.9 MEQ/L (21.0-32.0); CALCIUM 8.1 MG/DL (8.5-10.1); CREATININE 3.39 MG/DL (0.60-1.30)
--- NOTE | 2017-10-16 14:00 | RADRPT ---
EXAM DATE/TIME: 10/15/2017 17:46 [facility] COMPARISON: CT ABDOMEN & PELVIS W/O CONTRAST, October 07, 2017, 21:19. INDICATIONS : Patient with GI Bleed in need of abdominal angiogram with embolization. MEDICAL HISTORY : CKD Stage 4, HLD, HTN, CHF, Anemia, Chronic left lower extremity large ulcer, MRSA SURGICAL HISTORY : AAA Repair ENCOUNTER: Initial ACUITY: 1 week PAIN SCORE: Nonresponsive. FLUORO TIME: 15.4 minutes IMAGE SERIES: 20 ACCESS SITE: Right Femoral artery CONTRAST: 1.) 90 cc Visipaque (iodixanol) DEVICE(S): 1.) gastroduodenal artery Tornado 035 5X3MM X3 embolic coil(s) 2.) gastroduodenal artery Tornado 035 6X3MM embolic coil(s) 3.) gastroduodenal artery 12-7MM Gelfoam 4.) Right common femoral artery 6F Perclose PROCEDURE : 1. Ultrasound-guided puncture of the access site. 2. Angiography of the access site prior to closure device. 3. Conscious sedation with continuous EKG and Oximetry monitoring. 4. Percutaneous closure of the access site. 5. Angiography of the GDA 6. coil and Gelfoam embolization of the GDA The risks, benefits and alternatives to the procedure were explained and verbal and written consent w as obtained. The site was prepped in sterile fashion. Full sterile technique was used, including ca p, mask, sterile gloves and gown and a large sterile sheet. Hand hygiene and 2% chlorhexidine and/or betadine/alcohol prep was utilized per protocol for cutaneous antisepsis. Sterile gel and sterile p robe cover were utilized for ultrasound guidance. The skin and subcutaneous tissues were infiltrated with local anesthetic solution. With ultrasound and fluoroscopic guidance the selected artery was punctured and a vascular sheath was placed. Angiography of the common femoral artery was performed for evaluation prior to percutaneous closure device placement. Fluoroscopic images show surgical clips in the expected location of the gastric antrum/duodenal bulb. Due to severe respiratory motion artifact, anatomic detail was extremely limited. However, a hook ca theter was used to select the origin of the celiac. Contrast injection confirmed position. Catheter a nd wire were manipulated out into the proper hepatic artery. The wire was then advanced into the GDA. Position was confirmed with positive contrast. At this point, the wire was exchanged for a Mcmullen and the short groin sheath was exchanged for a 5 Mal[place]ian, 55 cm Rabbe which was advanced into the proper hepatic. The hockey-stick catheter was then advanced out into the distal aspect of the GDA and a seri es of 5 mm Tornado coils were deposited. This was followed by approximately 1 cc of Gelfoam. Catheter was then backed into the proximal GDA and a second series of 5 and 6 mm coils deployed. Final angiog raphic run from the proper hepatic showed no significant flow through the GDA distribution. Hemostasis was obtained with the prescribed medicated closure device. Conscious sedation was perform ed with the prescribed dosages and duration as above in the presence of an independent trained radiol ogy nurse to assist in the monitoring of the patient. EKG and oximetry remained stable throughout e procedure. CONCLUSION: 1. Limited anatomic visualization due to severe respiratory motion artifact. 2. Hemoclips are identified in the expected distribution of the GDA. As the patient was reportedly a ctively bleeding by GI and patient's systolic blood pressure was in the 80s on presentation to the in terventional department, empiric embolization was performed of the GDA. Pressures at the termination of the procedure were approximately 110 systolic. Pb Orosco MD on October 16, 2017 at 13:43 Board Certified Radiologist. This report was verified electronically.
--- NOTE | 2017-10-16 14:01 | RADRPT ---
EXAM DATE/TIME: 10/15/2017 17:46 [facility] COMPARISON: No previous studies available for comparison. INDICATIONS : Patient with history of chronic kidney disease in need of non tunnelled dialysis catheter placement MEDICAL HISTORY : CKD Stage 4, HLD, HTN, CHF, Anemia, Chronic left lower extremity large ulcer, MRSA. Active GI bleed s tatus post mesenteric angiography and GDA embolization SURGICAL HISTORY : AAA Repair ENCOUNTER: Initial ACUITY: 1 week PAIN SCORE: Nonresponsive. FLUORO TIME: 15.4 minutes IMAGE SERIES: 2 ACCESS: Right internal jugular vein DEVICE(S): 1.) 14 Swedish dual lumen 20 cm Schon catheter PROCEDURE : 1. Ultrasound guided venipuncture. 2. Fluoroscopic guidance. 3. Central line placement. The risks, benefits and alternatives to the procedure were explained and verbal and written consent w as obtained. The site was prepped in sterile fashion. Full sterile technique was used, including ca p, mask, sterile gloves and gown and a large sterile sheet. Hand hygiene and 2% chlorhexidine prep w as utilized per protocol for cutaneous antisepsis with appropriate dry time for site. Sterile gel an d sterile probe cover were utilized for ultrasound guidance. The skin and subcutaneous tissues were infiltrated with local anesthetic solution. A suitable site a paulie the vein was selected with ultrasound and fluoroscopic guidance. A small incision was made. Th e vein was accessed under direct ultrasound visualization using the micropuncture technique. The jason ropuncture set was exchanged for a 0.035 wire. The tract was dilated. The catheter was advanced int o position under direct fluoroscopic visualization. The catheter was fixed in place with suture and a sterile dressing was applied. The patient tolerated the procedure well and there were no complications. CONCLUSION: Uncomplicated line placement as above. Pb Orosco MD on October 16, 2017 at 13:58 Board Certified Radiologist. This report was verified electronically.
--- NOTE | 2017-10-16 15:57 | HHI.GIFU ---
Subjective Remarks Pt resting in bed. asking for food. Still having black tarry stool but per RN no active bleeding. (Bhargavi Campbell) Objective Vitals I&O Vital Signs Date Time Temp Pulse Resp B/P (MAP) Pulse Ox O2 Delivery O2 Flow Rate FiO2 10/16/17 15:00 99 Room Air 10/16/17 14:00 82 10/16/17 12:00 80 10/16/17 12:00 98.7 80 20 142/83 (102) 100 10/16/17 11:00 99 Room Air 10/16/17 10:00 88 10/16/17 09:38 100 Nasal Cannula 3 10/16/17 08:20 40 10/16/17 08:00 40 10/16/17 08:00 99.1 82 20 173/85 (114) 100 10/16/17 08:00 82 10/16/17 07:00 100 Mechanical Ventilator 40 10/16/17 04:08 100 40 10/16/17 04:00 81 10/16/17 04:00 98.4 82 22 154/80 (104) 100 10/16/17 03:37 100 40 10/16/17 03:02 98.4 76 20 158/81 100 10/16/17 03:00 100 Mechanical Ventilator 40 10/16/17 02:37 98.4 78 21 157/82 100 10/16/17 02:22 98.3 78 20 159/81 100 10/16/17 01:36 100 40 10/16/17 00:00 98.8 76 24 138/73 (94) 100 10/16/17 00:00 77 10/15/17 23:00 100 Mechanical Ventilator 40 10/15/17 22:30 98.2 75 18 136/75 100 10/15/17 20:49 98.2 82 18 135/79 100 10/15/17 20:45 100 40 10/15/17 20:34 98.1 74 16 142/80 100 10/15/17 20:00 78 10/15/17 20:00 98.1 78 18 143/75 (97) 100 10/15/17 19:00 100 Mechanical Ventilator 40 10/15/17 17:42 99 Nasal Cannula 2.00 10/15/17 17:00 100 100 10/15/17 17:00 83 16 111/60 (77) 100 Mechanical Ventilator 50 10/15/17 17:00 100 40 10/15/17 16:49 98.0 83 16 103/55 (71) 100 Mechanical Ventilator 100 I/O 10/15/17 10/15/17 10/15/17 10/16/17 10/16/17 10/16/17 07:00 15:00 23:00 07:00 15:00 23:00 Intake Total 1200 ml 2000 ml 1175 ml 100 ml Output Total 1200 ml 500 ml 1200 ml Balance 0 ml 1500 ml -25 ml 100 ml Intake Oral 1200 ml 0 ml IV Total 300 ml 725 ml 100 ml Packed Cells 800 ml 400 ml Blood Product IV Normal Saline Flush 100 ml 50 ml Other 800 ml Output Urine Total 1200 ml 500 ml 1150 ml Drainage Total 50 ml # Bowel Movements 1 1 Laboratory Laboratory Tests Test 10/15/17 22:02 10/15/17 23:01 10/16/17 04:17 10/16/17 11:46 Blood Gas Puncture Site RT RADIAL Blood Gas Patient Temperature 98.6 Blood Gas HCO3 23 Blood Gas Base Excess -2.2 Blood Gas Oxygen Saturation 95 Arterial Blood pH 7.34 Arterial Blood Partial Pressure CO2 44 Arterial Blood Partial Pressure O2 88 Arterial Blood Oxygen Content 9.3 Arterial Blood Carboxyhemoglobin 1.6 Arterial Blood Methemoglobin 1.4 Blood Gas Hemoglobin 6.9 Oxygen Delivery Device VENTILATOR Blood Gas Ventilator Setting AC/14/550/PEEP5 Blood Gas Inspired Oxygen 40 White Blood Count 11.9 Red Blood Count 2.59 Hemoglobin 7.4 9.4 Hematocrit 22.3 28.1 Mean Corpuscular Volume 85.9 Mean Corpuscular Hemoglobin 28.5 Mean Corpuscular Hemoglobin Concent 33.2 Red Cell Distribution Width 16.1 Platelet Count 199 Mean Platelet Volume 8.9 Prothrombin Time 10.7 Prothromb Time International Ratio 1.1 Activated Partial Thromboplast Time 23.2 Fibrinogen 317 Blood Urea Nitrogen 98 Creatinine 3.39 Random Glucose 110 Calcium Level 8.1 Sodium Level 148 Potassium Level 4.5 Chloride Level 114 Carbon Dioxide Level 24.9 Anion Gap 9 Estimat Glomerular Filtration Rate 24 Date/Time Source Procedure Growth Status 10/10/17 15:45 Wound Leg Gram Stain - Final Complete 10/10/17 15:45 Wound Culture - Final Escherichia Coli Proteus Mirabilis Complete Imaging Last Impressions Chest X-Ray 10/16/17 0600 Signed Impressions: Service Date/Time: Monday, October 16, 2017 03:58 - CONCLUSION: 1. Left lower lobe consolidation. 2. ET and central line tips in good position. Lawrence Raya MD Catheter Placement X-Ray 10/15/17 0000 Signed Impressions: Service Date/Time: Sunday, October 15, 2017 17:46 - CONCLUSION: Uncomplicated line placement as above. Pb Orosco MD Abdomen Arteriogram 10/15/17 0000 Signed Impressions: Service Date/Time: Sunday, October 15, 2017 17:46 - CONCLUSION: 1. Limited anatomic visualization due to severe respiratory motion artifact. 2. Hemoclips are identified in the expected distribution of the GDA. As the patient was reportedly actively bleeding by GI and patient's systolic blood pressure was in the 80s on presentation to the interventional department, empiric embolization was performed of the GDA. Pressures at the termination of the procedure were approximately 110 systolic. Pb Orosco MD Abdomen X-Ray 10/10/17 0000 Signed Impressions: Service Date/Time: Tuesday, October 10, 2017 15:26 - CONCLUSION: 1. Findings of mild small bowel ileus in the lower quadrant. Constantino Hagen MD Abdomen/Pelvis CT 10/07/172052 Signed Impressions: Service Date/Time: Saturday, October 07, 2017 21:19 - CONCLUSION: 1. No acute abnormality seen. 2. Colonic diverticula. Cruz Guadarrama MD Physical Exam HEENT: Normocephalic; atraumatic CHEST: Even/unlabored CARDIAC: RRR ABDOMEN: obese, soft, nontender,BS + DIALS INSPECTOR: No focal deficits; alert and oriented times three. (Bhargavi Campbell [facility]) Assessment and Plan Plan Assessment: - Anemia with reports of rectal bleeding as per HPI Reports black and maroon colored stools that began yesterday while at a viewing. Last BM was prior to transfer. H/H on admission 4.5/13.8. Denies history of GIB. Has never had EGD or colonoscopy. Of note, has been taking daily Ibuprofen and Aleve for leg pain. Occasional ETOH. - CKD- GFR 16. Hyperkalemia- K+ 5.5 - High risk for GI procedures- history of AAA repair (10/09) --> S/P EGD (10/08) --> Gastritis with gastric ulcer with visible vessel- Endoclipping with epi injection. Pt received 6 U of PRBCs total yesterday, only on following EGD. Denies BM since EGD. Denies nausea, vomiting, abdominal pain. H/H stable over night currently 7.8/22.8 10/10/17 mild decrease hgb overnight, 7.4. no obvious GI bleeding. 10/16/17 s/p EGD revealed residual food, active bleed s/p epi inj, pt then sent to IR for embolization GDA. sent to [facility] for hemorrhagic shock hgb improved to 9.4 after 3 units PRBC. +black tarry stool but not vangie bleeding Plan: - clear liquids - Protonix PO BID - Monitor H/H - Transfuse as needed - notify GI of active bleeding - supportive care Pt has been seen and examined by myself and Dr. Carrillo and this note is on his behalf (Bhargavi Campbell) Plan Agree with above note, status post embolization, monitor H&H and packed RBC as needed, clear liquid for now (Nikko Carrillo MD) Bhargavi Campbell Oct 16, 2017 15:57 Nikko Carrillo MD Oct 16, 2017 19:32
[2017-10-16] MEDS: cefTRIAXone INJ 1,000 MG in SODIUM CHLORIDE 0.9% INJ 100 ML IV SCH (17:32)
[2017-10-16] MEDS: ACETAMINOPHEN 325 MG TAB PO PRN (22:52)
[2017-10-17] VITALS (14 sets, daily range): BP systolic 120–172; BP diastolic 64–87; PULSE 75–92; RESP 14–20; TEMP 98.3–99; O2SAT 94–100
[2017-10-17] MEDS: ACETAMINOPHEN/HYDROcodone 325 MG/10 MG TAB PO PRN ×4 (01:15→23:00)
[2017-10-17] MEDS: RESP: ALBUTEROL 2.5 MG/IPRATROPIUM 0.5 MG NEB (SCH) INH ×4 (03:53→21:34)
[2017-10-17] MEDS: hydrALAZINE HCL 100 MG TAB PO SCH ×3 (05:45→20:41)
[2017-10-17] MEDS: HEPARIN SODIUM - SQ 10,000 UNITS/ML VIAL SQ SCH (05:46)
[2017-10-17 06:46] LABS: AUTOMATED NEUTROPHIL # 9.3 TH/MM3 (1.8-7.7); BASOPHIL # 0.1 TH/MM3 (0-0.2); BASOPHIL % 0.5 % (0.0-2.0); EOSINOPHIL # 0.4 TH/MM3 (0-0.4); EOSINOPHIL % 3.4 % (0.0-4.0); HEMATOCRIT 23.6 % (39.0-51.0); HEMOGLOBIN 7.9 GM/DL (13.0-17.0); LYMPH % 9.1 % (9.0-44.0); MEAN CELL VOLUME 86.6 FL (80.0-100.0); MEAN CORPUSCULAR HEMOGLOBIN 29.1 PG (27.0-34.0); MEAN CORPUSCULAR HGB CONC 33.5 % (32.0-36.0); MEAN PLATELET VOLUME 8.7 FL (7.0-11.0); MONO % 6.3 % (0.0-8.0); MONOCYTE # 0.7 TH/MM3 (0-0.9); NEUT % 80.7 % (16.0-70.0); PLATELET COUNT 221 TH/MM3 (150-450); RED BLOOD COUNT 2.72 MIL/MM3 (4.50-5.90); RED CELL DISTRIBUTION WIDTH 16.6 % (11.6-17.2); WHITE BLOOD COUNT 11.5 TH/MM3 (4.0-11.0)
[2017-10-17 07:04] LABS: BICARBONATE 26.4 MEQ/L (21.0-32.0); CALCIUM 8.2 MG/DL (8.5-10.1); CREATININE 2.82 MG/DL (0.60-1.30)
[2017-10-17] MEDS: CHLORHEXIDINE 0.12% (ORAL KIT) 15 ML CUP MT SCH ×2 (08:00→20:00)
[2017-10-17] MEDS: COLLAGENASE OINT 30 GM TUBE TOPICAL SCH (09:00)
[2017-10-17] MEDS: PANTOPRAZOLE SODIUM 40 MG VIAL IV PUSH SCH ×2 (09:01→20:41)
[2017-10-17] MEDS: SODIUM CHLORIDE 0.9% FLUSH 10 ML FLUSH IV FLUSH SCH ×2 (09:01→20:41)
[2017-10-17] MEDS: DOCUSATE SODIUM 50 MG/SENNA 8.6 MG TAB PO SCH ×2 (09:04→20:41)
[2017-10-17] MEDS: ISOSORBIDE DINITRATE 20 MG TAB PO SCH ×3 (09:04→17:02)
[2017-10-17] MEDS: CHOLECALCIFEROL (VIT D3) 5000 UNIT CAP PO SCH (09:04)
[2017-10-17] MEDS: METOPROLOL TARTRATE 50 MG TAB PO SCH ×2 (09:04→20:41)
[2017-10-17] MEDS: NIFEdipine 60 MG SUSTAINED RELEASE TAB PO SCH ×2 (09:04→20:41)
--- NOTE | 2017-10-17 10:26 | HHI.PR ---
Subjective Remarks no reported bleeding. kim liquids. no abdomen pain. Objective Vitals heart reg lung cta abd s/nt ext left leg wound vac Vital Signs Date Time Temp Pulse Resp B/P (MAP) Pulse Ox O2 Delivery O2 Flow Rate FiO2 10/17/17 10:00 85 10/17/17 08:04 100 Nasal Cannula 2.00 10/17/17 08:00 89 10/17/17 08:00 98.7 89 15 129/64 (85) 100 10/17/17 07:00 100 Room Air 10/17/17 06:00 89 10/17/17 04:00 99.0 83 16 122/76 (91) 100 10/17/17 04:00 83 10/17/17 03:00 98 Room Air 10/17/17 02:00 83 10/17/17 00:00 84 10/17/17 00:00 99.0 84 14 172/85 (114) 99 10/16/17 23:00 99 Room Air 10/16/17 22:00 86 10/16/17 21:31 100 Nasal Cannula 2.00 10/16/17 20:00 99.1 92 18 159/89 (112) 99 10/16/17 20:00 92 10/16/17 19:00 99 Room Air 10/16/17 18:00 94 10/16/17 16:00 98.3 90 20 139/79 (99) 100 10/16/17 16:00 90 10/16/17 15:00 99 Room Air 10/16/17 14:00 82 10/16/17 12:00 80 10/16/17 12:00 98.7 80 20 142/83 (102) 100 10/16/17 11:00 99 Room Air Result Diagram: 10/17/17 0615 10/17/17 0615 Imaging Last Impressions Abdomen/Pelvis CT 10/07/172052 Signed Impressions: Service Date/Time: Saturday, October 07, 2017 21:19 - CONCLUSION: 1. No acute abnormality seen. 2. Colonic diverticula. Cruz Guadarrama MD Objective Remarks GENERAL: This is a well-nourished, well-developed patient, in no apparent distress. SKIN: wound vac to left lower extremity CARDIOVASCULAR: Regular rate and rhythm RESPIRATORY: Clear to auscultation. Breath sounds equal bilaterally. GASTROINTESTINAL: obese, distended, decreased bowel sounds x 4, MUSCULOSKELETAL: large, circumferential wound at LLE above the ankle with dressing present dry and intact NEURO: Alert & Oriented x4 to person, place, time, situation. Moves all ext x4 Procedures s/p EGD (10/08). Pt found to have gastric ulcers. Pt underwent epi/clip s/p debridement and wound vac placement (10/13) A/P Problem List: (1) Acute blood loss anemia ICD Codes: D62 - Acute posthemorrhagic anemia Status: Acute Plan: 1. acute gib. acute blood loss anemia/symptomatic. pt was using goody powder. egd 10/08 gastric ulcers. visible vessel...epi/clip per RN. pending report. egd 10/16 active bleeding. epi injection. unable to control IR 10/16: empiric embolization was performed of the GDA. s/p 12 units prbc 2. acute/ckd 4 3. sleep apnea 4. chronic leg ulceration. infected. s/p debridement.wound vac 5. htn continue to monitor h/h diet per GI ppi bid monitoring in ICU PT. will need snf at [facility] updated his today at bedside continue nightly bipap cont wound vac care and abx for infected leg ulceration. (2) GI bleed ICD Codes: K92.2 - Gastrointestinal hemorrhage, unspecified Status: Acute Plan: - see above (3) Acute worsening of stage 4 chronic kidney disease ICD Codes: N28.9 - Disorder of kidney and ureter, unspecified; N18.4 - Chronic kidney disease, stage 4 (severe) Status: Acute Plan: - a/ckd 4 - comgmt with Nephrology, Dr. Block - Cr/GFR continue to improve - (4) Skin ulcer ICD Codes: L98.499 - Non-pressure chronic ulcer of skin of other sites with unspecified severity Status: Chronic Plan: - case d/w Dr. Zuri Loya (10/10). - santyl - wound culture (10/10) --> E coli and Proteus mirabilis resistant to Levaquin - will DC ciprofloxin/doxycycline - Rocephin - Vascular Surgery Consult requested. Case d/w Dr. Victor. He will consult. - obtain segmental Doppler study reviewed conclusion: Normal CURT and TBI on the right. Abnormal TBI on the left. Multiple segments that could not be occluded in the left lower extremity possibly representing severely calcified vessels. CURT could not be calculated. As the patient is symptomatic in the left lower extremity, CTA abdomen with run off recommended. - Can NOT obtain CTA with runoff at this time d/t ARF - see above (5) Sleep apnea ICD Codes: G47.30 - Sleep apnea, unspecified Status: Chronic Plan: - Pt will need re-evaluation with polysomnogram outpt. (6) HTN (hypertension) ICD Codes: I10 - Essential (primary) hypertension Status: Chronic Plan: - metoprolol - observe Problem Qualifiers (1) GI bleed: Qualified Codes: K92.2 - Gastrointestinal hemorrhage, unspecified (2) Skin ulcer: Qualified Codes: L98.492 - Non-pressure chronic ulcer of skin of other sites with fat layer exposed (3) Sleep apnea: Qualified Codes: G47.30 - Sleep apnea, unspecified (4) HTN (hypertension): Qualified Codes: I10 - Essential (primary) hypertension Francisco J Umanzor MD Oct 17, 2017 10:26
[2017-10-17] MEDS: ONDANSETRON HCL 4 MG/2 ML VIAL IVP PRN (12:45)
[2017-10-17] MEDS: MORPHINE SULFATE 2 MG/ML SYRINGE IV PRN (12:45)
--- NOTE | 2017-10-17 13:45 | HHI.NPPN ---
Subjective General Problems: Anemia, Edema, Hypertension Renal Failure: Chronic, Stage IV History of Present Illness 46 year old male with a past medical history of chronic kidney disease stage 4, Hypertension, sleep apnea, chronic left lower extremity leg ulcer, obesity, and CHF. Patient presented to the ED with abdominal pain and maroon stools. He was found to have a hemoglobin of 4.5. His blood pressure is elevated now but per records when EMS arrived he was found to be hypotensive with a SBP in the 80 's. Nephrology is consulted for acute on chronic renal failure with a creatinine of 4.72 and potassium of 5.5. His baseline creatinine is at 2.5 to 3.0 and his glue size machine operator is Dr. Florez. Additional Remarks No acute complaints other than wanting to sleep. (Zehra Dela Cruz) Review of Systems General Constitutional: Fatigue (Zehra Dela Cruz) Respiratory Respiratory Remarks Denies SOB (Zehra Dela Cruz) Cardiovascular Cardiac: Edema (Zehra Dela Cruz) Gastrointestinal GI Remarks denies abdominal pain (Zehra Dela Cruz) Objective Data Data Vital Signs Date Time Temp Pulse Resp B/P (MAP) Pulse Ox O2 Delivery O2 Flow Rate FiO2 10/17/17 12:00 98.3 75 17 120/77 (91) 97 10/17/17 12:00 75 10/17/17 11:00 100 Room Air 10/17/17 10:00 85 10/17/17 08:04 100 Nasal Cannula 2.00 10/17/17 08:00 89 10/17/17 08:00 98.7 89 15 129/64 (85) 100 10/17/17 07:00 100 Room Air 10/17/17 06:00 89 10/17/17 04:00 99.0 83 16 122/76 (91) 100 10/17/17 04:00 83 10/17/17 03:00 98 Room Air 10/17/17 02:00 83 10/17/17 00:00 84 10/17/17 00:00 99.0 84 14 172/85 (114) 99 10/16/17 23:00 99 Room Air 10/16/17 22:00 86 10/16/17 21:31 100 Nasal Cannula 2.00 10/16/17 20:00 99.1 92 18 159/89 (112) 99 10/16/17 20:00 92 10/16/17 19:00 99 Room Air 10/16/17 18:00 94 10/16/17 16:00 98.3 90 20 139/79 (99) 100 10/16/17 16:00 90 10/16/17 15:00 99 Room Air 10/16/17 14:00 82 (Zehra Dela Cruz) -: 10/17/17 0615 10/17/17 0615 Imaging Last Impressions Chest X-Ray 10/16/17 0600 Signed Impressions: Service Date/Time: Monday, October 16, 2017 03:58 - CONCLUSION: 1. Left lower lobe consolidation. 2. ET and central line tips in good position. Lawrence Raya MD Catheter Placement X-Ray 10/15/17 0000 Signed Impressions: Service Date/Time: Sunday, October 15, 2017 17:46 - CONCLUSION: Uncomplicated line placement as above. Pb Orosco MD Abdomen Arteriogram 10/15/17 0000 Signed Impressions: Service Date/Time: Sunday, October 15, 2017 17:46 - CONCLUSION: 1. Limited anatomic visualization due to severe respiratory motion artifact. 2. Hemoclips are identified in the expected distribution of the GDA. As the patient was reportedly actively bleeding by GI and patient's systolic blood pressure was in the 80s on presentation to the interventional department, empiric embolization was performed of the GDA. Pressures at the termination of the procedure were approximately 110 systolic. Pb Orosco MD Abdomen X-Ray 10/10/17 0000 Signed Impressions: Service Date/Time: Tuesday, October 10, 2017 15:26 - CONCLUSION: 1. Findings of mild small bowel ileus in the lower quadrant. Constantino Hagen MD Abdomen/Pelvis CT 10/07/172052 Signed Impressions: Service Date/Time: Saturday, October 07, 2017 21:19 - CONCLUSION: 1. No acute abnormality seen. 2. Colonic diverticula. Cruz Guadarrama MD (Zehra Dela Cruz) Physical Exam General Appearance: Well Nourished, No Acute Distress, Comfortable (Zehra Dela Cruz) Throat Throat Exam: Oral Mucosa [place] & Moist (Zehra Dela Cruz) Neck Neck Exam: Neck Supple (Zehra Dela Cruz) Pulmonary Resp Exam: Breath Sounds Equal, No Distress, Rhonchi, Decreased Bases, Diminished Breath Sounds (Zehra Dela Cruz) Cardiology CV Exam: Regular, Normal Sinus Rhythm (Zehra Dela Cruz) Gastrointestinal/Abdomen GI Exam: Soft, Non-Tender, Bowel Sounds Present GI Remarks large (Zehra Dela Cruz) Integumentary Skin Exam: Clear, Warm Skin Remarks wound vac left foot (Zehra Dela Cruz) Extremeties Extremities Exam: Trace Edema (left lower leg with dressing.) (Zehra Dela Cruz) Neurologic Neuro Exam: Alert, Awake, Oriented (Zehra Dela Cruz) Psychiatric Psych Exam: Appropriate Responses (Zehra Dela Cruz) Assessment/Plan Problem List: (1) Acute worsening of stage 4 chronic kidney disease ICD Codes: N28.9 - Disorder of kidney and ureter, unspecified; N18.4 - Chronic kidney disease, stage 4 (severe) Status: Acute Plan: Acute kidney injury with admission creatinine of 4.72 and potassium of 5.5 from most likely hypotension with blood loss and NSAID use. Chronic kidney disease stage 4 from most likely uncontrolled hypertension. His baseline creatinine is at 2.5 to 3.0 and his glue size machine operator is Dr. Florez. CT of abdomen is noted to have kidney of normal size and shape. There is no mass, stone or hydronephrosis. GI bleed - urgent embolization with IR yesterday on 10/15 Plan Creatinine stable at 2.82 from 3.39 UOP maintained with 3.5 L UOP/24 hours. Vascath placed with IR during embolization procedure, in case HD would be necessary. No need for HD at this time, continue to follow labs. Follow the urine out put and BMP. Avoid Nephrotoxins. Blood pressure stable (2) Sleep apnea ICD Codes: G47.30 - Sleep apnea, unspecified Status: Chronic (3) HTN (hypertension) ICD Codes: I10 - Essential (primary) hypertension Status: Chronic Plan: Will monitor Hydralazine increased (4) Skin ulcer ICD Codes: L98.499 - Non-pressure chronic ulcer of skin of other sites with unspecified severity Status: Chronic Plan: Dressing on Wound care has been consulted (5) Acute blood loss anemia ICD Codes: D62 - Acute posthemorrhagic anemia Status: Acute Plan: GI consulted On Protonix (Zehra Dela Cruz) Problem List: (1) Acute worsening of stage 4 chronic kidney disease ICD Codes: N28.9 - Disorder of kidney and ureter, unspecified; N18.4 - Chronic kidney disease, stage 4 (severe) Status: Acute Plan: Acute kidney injury with admission creatinine of 4.72 and potassium of 5.5 from most likely hypotension with blood loss and NSAID use. Chronic kidney disease stage 4 from most likely uncontrolled hypertension. His baseline creatinine is at 2.5 to 3.0 and his glue size machine operator is Dr. Florez. CT of abdomen is noted to have kidney of normal size and shape. There is no mass, stone or hydronephrosis. GI bleed - urgent embolization with IR yesterday on 10/15 Plan Creatinine stable at 2.82 from 3.39 UOP maintained with 3.5 L UOP/24 hours. Vascath placed with IR during embolization procedure, in case HD would be necessary. No need for HD at this time, continue to follow labs. Follow the urine out put and BMP. Avoid Nephrotoxins. Blood pressure stable. Patient seen and examined, agree with above. Increase in the Creatinine, but now decrease to 2.8. (2) Sleep apnea ICD Codes: G47.30 - Sleep apnea, unspecified Status: Chronic (3) HTN (hypertension) ICD Codes: I10 - Essential (primary) hypertension Status: Chronic Plan: Will monitor Hydralazine increased (4) Skin ulcer ICD Codes: L98.499 - Non-pressure chronic ulcer of skin of other sites with unspecified severity Status: Chronic Plan: Dressing on Wound care has been consulted (5) Acute blood loss anemia ICD Codes: D62 - Acute posthemorrhagic anemia Status: Acute Plan: GI consulted On Protonix (Aden Block MD) Problem Qualifiers (1) Sleep apnea: Qualified Codes: G47.30 - Sleep apnea, unspecified (2) HTN (hypertension): Qualified Codes: I10 - Essential (primary) hypertension (3) Skin ulcer: Qualified Codes: L98.492 - Non-pressure chronic ulcer of skin of other sites with fat layer exposed Zehra Dela Cruz Oct 17, 2017 13:45 Aden Block MD October 18, 2017 16:39
--- NOTE | 2017-10-17 14:05 | HHI.GIFU ---
Subjective Remarks Pt resting in bed. Has fluid leaking from cath site. No BM today. ASking for food. (Bhargavi Campbell) Objective Vitals I&O Vital Signs Date Time Temp Pulse Resp B/P (MAP) Pulse Ox O2 Delivery O2 Flow Rate FiO2 10/17/17 12:00 98.3 75 17 120/77 (91) 97 10/17/17 12:00 75 10/17/17 11:00 100 Room Air 10/17/17 10:00 85 10/17/17 08:04 100 Nasal Cannula 2.00 10/17/17 08:00 89 10/17/17 08:00 98.7 89 15 129/64 (85) 100 10/17/17 07:00 100 Room Air 10/17/17 06:00 89 10/17/17 04:00 99.0 83 16 122/76 (91) 100 10/17/17 04:00 83 10/17/17 03:00 98 Room Air 10/17/17 02:00 83 10/17/17 00:00 84 10/17/17 00:00 99.0 84 14 172/85 (114) 99 10/16/17 23:00 99 Room Air 10/16/17 22:00 86 10/16/17 21:31 100 Nasal Cannula 2.00 10/16/17 20:00 99.1 92 18 159/89 (112) 99 10/16/17 20:00 92 10/16/17 19:00 99 Room Air 10/16/17 18:00 94 10/16/17 16:00 98.3 90 20 139/79 (99) 100 10/16/17 16:00 90 10/16/17 15:00 99 Room Air I/O 10/16/17 10/16/17 10/16/17 10/17/17 10/17/17 10/17/17 07:00 15:00 23:00 07:00 15:00 23:00 Intake Total 1175 ml 110 ml 580 ml 600 ml Output Total 1200 ml 1900 ml 1800 ml Balance -25 ml 110 ml -1320 ml -1200 ml Intake Oral 0 ml 480 ml 600 ml IV Total 725 ml 110 ml 100 ml Packed Cells 400 ml Blood Product IV Normal Saline Flush 50 ml Output Urine Total 1150 ml 1850 ml 1700 ml Drainage Total 50 ml 50 ml 100 ml # Bowel Movements 1 2 0 Laboratory Laboratory Tests Test 10/17/17 06:15 White Blood Count 11.5 Red Blood Count 2.72 Hemoglobin 7.9 Hematocrit 23.6 Mean Corpuscular Volume 86.6 Mean Corpuscular Hemoglobin 29.1 Mean Corpuscular Hemoglobin Concent 33.5 Red Cell Distribution Width 16.6 Platelet Count 221 Mean Platelet Volume 8.7 Neutrophils (%) (Auto) 80.7 Lymphocytes (%) (Auto) 9.1 Monocytes (%) (Auto) 6.3 Eosinophils (%) (Auto) 3.4 Basophils (%) (Auto) 0.5 Neutrophils # (Auto) 9.3 Lymphocytes # (Auto) 1.0 Monocytes # (Auto) 0.7 Eosinophils # (Auto) 0.4 Basophils # (Auto) 0.1 CBC Comment DIFF FINAL Differential Comment Blood Urea Nitrogen 76 Creatinine 2.82 Random Glucose 111 Calcium Level 8.2 Sodium Level 149 Potassium Level 4.2 Chloride Level 117 Carbon Dioxide Level 26.4 Anion Gap 6 Estimat Glomerular Filtration Rate 29 Date/Time Source Procedure Growth Status 10/10/17 15:45 Wound Leg Gram Stain - Final Complete 10/10/17 15:45 Wound Culture - Final Escherichia Coli Proteus Mirabilis Complete Imaging Last Impressions Chest X-Ray 10/16/17 0600 Signed Impressions: Service Date/Time: Monday, October 16, 2017 03:58 - CONCLUSION: 1. Left lower lobe consolidation. 2. ET and central line tips in good position. Lawrence Raya MD Catheter Placement X-Ray 10/15/17 0000 Signed Impressions: Service Date/Time: Sunday, October 15, 2017 17:46 - CONCLUSION: Uncomplicated line placement as above. Pb Orosco MD Abdomen Arteriogram 10/15/17 0000 Signed Impressions: Service Date/Time: Sunday, October 15, 2017 17:46 - CONCLUSION: 1. Limited anatomic visualization due to severe respiratory motion artifact. 2. Hemoclips are identified in the expected distribution of the GDA. As the patient was reportedly actively bleeding by GI and patient's systolic blood pressure was in the 80s on presentation to the interventional department, empiric embolization was performed of the GDA. Pressures at the termination of the procedure were approximately 110 systolic. Pb Orosco MD Abdomen X-Ray 10/10/17 0000 Signed Impressions: Service Date/Time: Tuesday, October 10, 2017 15:26 - CONCLUSION: 1. Findings of mild small bowel ileus in the lower quadrant. Constantino Hagen MD Abdomen/Pelvis CT 10/07/172052 Signed Impressions: Service Date/Time: Saturday, October 07, 2017 21:19 - CONCLUSION: 1. No acute abnormality seen. 2. Colonic diverticula. Cruz Guadarrama MD Physical Exam HEENT: Normocephalic; atraumatic CHEST: Even/unlabored CARDIAC: RRR ABDOMEN: obese, soft, nontender,BS + serosanguineous fluid leaking from right groin cath site CAN REFORMING MACHINE OPERATOR: No focal deficits; alert and oriented times three. (Bhargavi Campbell PATTERN MARKING SUPERVISOR) Assessment and Plan Plan Assessment: - Anemia with reports of rectal bleeding as per HPI Reports black and maroon colored stools that began yesterday while at a viewing. Last BM was prior to transfer. H/H on admission 4.5/13.8. Denies history of GIB. Has never had EGD or colonoscopy. Of note, has been taking daily Ibuprofen and Aleve for leg pain. Occasional ETOH. - CKD- GFR 16. Hyperkalemia- K+ 5.5 - High risk for GI procedures- history of AAA repair (10/09) --> S/P EGD (10/08) --> Gastritis with gastric ulcer with visible vessel- Endoclipping with epi injection. Pt received 6 U of PRBCs total yesterday, only on following EGD. Denies BM since EGD. Denies nausea, vomiting, abdominal pain. H/H stable over night currently 7.8/22.8 10/10/17 mild decrease hgb overnight, 7.4. no obvious GI bleeding. 10/16/17 s/p EGD revealed residual food, active bleed s/p epi inj, pt then sent to IR for embolization GDA. sent to [facility] for hemorrhagic shock hgb improved to 9.4 after 3 units PRBC. +black tarry stool but not vangie bleeding 10/17/17 HH dropped today. no obvious bleeding. fluid leaking from right groin cath site. Plan: - continue clear liquids - Protonix PO BID - Monitor H/H - Transfuse PRBC as needed - notify GI of active bleeding - supportive care pt seen by myself and Dr Carrillo and this note is on his behalf (Bhargavi Campbell) Plan Patient was seen and examined, agree with above note, dropped his hemoglobin, he denies any sign of active bleeding even though he did not have bowel movement , patient wants to eat but I advised him that he cannot feed him anything besides clear liquids just in case he needs another procedure, patient understand and we will monitor H&H closely and give the patient packed RBC as needed (Nikko Carrillo MD) Bhargavi Campbell Oct 17, 2017 14:05 Nikko Carrillo MD Oct 17, 2017 14:22
[2017-10-17 14:22] LABS: ALB/GLOB RATIO (SPE) 0.98 (1.39-2.23)
[2017-10-17] MEDS: ACETAMINOPHEN 325 MG TAB PO PRN (14:26)
--- NOTE | 2017-10-17 14:50 | PD.WCN.NOT ---
Wound Consult Description: Consult for VAC MANAGEMENT of Left leg // starting Tuesday (today) per Dr Loya Communicated with: Caroline MONTERO Patient Recommendation: Premedicate patient prior to wound VAC changes - with wound vac settings @ 125mmHg low continuous suction per Dr Loya. Instill at least 30ml of NS into tubing ~30min prior to wound VAC removal. Additional Information: Patient seen on for wound VAC change using medium black granufoam dressing. Patient was premedicated with IV medication. Foam was soaked using ~ 30ml NS and allowed to soak for ~5-10 minutes prior to removal. Neg Pressure Wound Therapy Wound Location Wound Location: Left lower extremity Wound Description Length: ~19cm Width: ~24cm Depth: ~1cm Wound bed appearance: 100% vascular beefy red granulation tissue Periwound appearance: Unremarkable Settings Suction: Continuous, Other (75mmHg to begin therapy. RN to increase to 100mmHg if tolerable in 2 hours. Goal is 125mmHg if patient can tolerate per Dr Loya.) Intensity: Low Other Information: Windowpaned Foam type: Black Number of pieces: other (4) Additonal Information Attempted to remove wound VAC drape from patient left lower extremity after removing NAKIA wrap and soft casting padding. Patient started to yell and grab his leg. Patient states pain with attempting to remove VAC drape with adhesive remover. Caroline MONTERO spoke with patient regarding medications available to help with wound VAC dressing change with patient reluctant but eventually accepting. Tubing was cut and ~30ml of NS was instilled into wound VAC dressing in attempt to loosen the black granufoam and allowed to sit in dressing for at least ~5-10 minutes while patient was being medicated for pain. Patient did not tolerate removal of black granufoam well. Patient was yelling and screaming and crying during removal of foam dressing. Once foam was removed from wound bed, wound was covered with sterile gauze and moistened with NS to cleanse. Periwound is noted to be dry and was skin prepped using Cavilon skin barrier film and window paned using wound VAC drape. Patient did not tolerate the window paning well either with stated pain with every touch. Wound is noted with 100% beefy red granulation tissue, minimal sanguinous drainage, no odor, and open wound margins. Medium black foam was cut and placed over wound bed and secured with VAC drape. Trac-pad placed over medial lower left leg and attached to the new canister. Machine was turned on with settings @75mmHg low continuous suction per last note by Dr Gonsalves, however Dr Loya asked that we incrementally increase with the goal @ 125mmHg if patient tolerates. There was a minimal leak noted that was found and reinforced using transparent film and the secured with a snug fitting, not tight, NAKIA wrap. Patient stated pain the entire time the wound VAC was being changed with miracle and nicolle Velazquez RN and writers arms. Recommend to premedicate patient prior to wound VAC removal as well as instilling NS into tubing ~30min -1hr prior. Yamile Perez [facility] Oct 17, 2017 14:50
[2017-10-17] MEDS: cefTRIAXone INJ 1,000 MG in SODIUM CHLORIDE 0.9% INJ 100 ML IV SCH (17:03)
[2017-10-17 21:55] LABS: HEMATOCRIT 23.8 % (39.0-51.0); HEMOGLOBIN 7.9 GM/DL (13.0-17.0)
[2017-10-18] VITALS (14 sets, daily range): BP systolic 116–157; BP diastolic 59–88; PULSE 75–90; RESP 19–26; TEMP 98.1–98.7; O2SAT 97–100
[2017-10-18] MEDS: RESP: ALBUTEROL 2.5 MG/IPRATROPIUM 0.5 MG NEB (SCH) INH ×4 (04:28→21:11)
[2017-10-18] MEDS: ACETAMINOPHEN/HYDROcodone 325 MG/10 MG TAB PO PRN ×4 (04:58→23:09)
[2017-10-18] MEDS: hydrALAZINE HCL 100 MG TAB PO SCH ×3 (06:36→21:17)
[2017-10-18 06:40] LABS: AUTOMATED NEUTROPHIL # 8.4 TH/MM3 (1.8-7.7); BASOPHIL % 0.4 % (0.0-2.0); EOSINOPHIL # 0.4 TH/MM3 (0-0.4); EOSINOPHIL % 4.2 % (0.0-4.0); HEMATOCRIT 22.4 % (39.0-51.0); HEMOGLOBIN 7.6 GM/DL (13.0-17.0); LYMPH % 8.7 % (9.0-44.0); LYMPHOCYTE # 0.9 TH/MM3 (1.0-4.8); MEAN CELL VOLUME 87.6 FL (80.0-100.0); MEAN CORPUSCULAR HEMOGLOBIN 29.7 PG (27.0-34.0); MEAN CORPUSCULAR HGB CONC 33.9 % (32.0-36.0); MEAN PLATELET VOLUME 8.7 FL (7.0-11.0); MONO % 6.7 % (0.0-8.0); MONOCYTE # 0.7 TH/MM3 (0-0.9); PLATELET COUNT 226 TH/MM3 (150-450); RED BLOOD COUNT 2.56 MIL/MM3 (4.50-5.90); RED CELL DISTRIBUTION WIDTH 16.8 % (11.6-17.2); WHITE BLOOD COUNT 10.5 TH/MM3 (4.0-11.0)
[2017-10-18] MEDS: CHLORHEXIDINE 0.12% (ORAL KIT) 15 ML CUP MT SCH ×2 (08:00→20:00)
[2017-10-18] MEDS: COLLAGENASE OINT 30 GM TUBE TOPICAL SCH (08:12)
[2017-10-18] MEDS: DOCUSATE SODIUM 50 MG/SENNA 8.6 MG TAB PO SCH ×2 (08:12→21:00)
[2017-10-18] MEDS: METOPROLOL TARTRATE 50 MG TAB PO SCH ×2 (08:12→21:17)
[2017-10-18] MEDS: PANTOPRAZOLE SODIUM 40 MG VIAL IV PUSH SCH ×2 (08:12→21:17)
[2017-10-18] MEDS: CHOLECALCIFEROL (VIT D3) 5000 UNIT CAP PO SCH (08:12)
[2017-10-18] MEDS: NIFEdipine 60 MG SUSTAINED RELEASE TAB PO SCH ×2 (08:12→21:17)
[2017-10-18] MEDS: ISOSORBIDE DINITRATE 20 MG TAB PO SCH ×3 (08:12→17:11)
[2017-10-18] MEDS: SODIUM CHLORIDE 0.9% FLUSH 10 ML FLUSH IV FLUSH SCH ×2 (08:12→21:17)
[2017-10-18] MEDS: diphenhydrAMINE HCL 50 MG/ML VIAL IV PRN (09:28)
--- NOTE | 2017-10-18 10:55 | HHI.PR ---
Subjective Remarks pt says had bm last night. nurse says no hematochezia..possibly mild tarry consistency.. no abdomen pain. kim liquids. Objective Vitals heart reg lung cta a bds s/nt ext no edema left ankle/leg woundvac Vital Signs Date Time Temp Pulse Resp B/P (MAP) Pulse Ox O2 Delivery O2 Flow Rate FiO2 10/18/17 08:56 98 10/18/17 08:00 84 10/18/17 08:00 98 Room Air 10/18/17 08:00 98.1 84 19 134/74 (94) 97 10/18/17 06:00 86 10/18/17 04:00 98.4 84 26 138/74 (95) 97 10/18/17 04:00 84 10/18/17 02:00 86 10/18/17 00:00 98.5 77 23 116/65 (82) 97 10/18/17 00:00 77 10/17/17 22:00 80 10/17/17 21:36 97 21 10/17/17 20:00 94 Room Air 10/17/17 20:00 92 10/17/17 20:00 98.7 92 20 143/87 (105) 94 10/17/17 18:00 90 10/17/17 16:00 88 10/17/17 16:00 98.8 88 19 128/66 (86) 100 10/17/17 15:00 98 Room Air 10/17/17 14:00 88 10/17/17 12:00 98.3 75 17 120/77 (91) 97 10/17/17 12:00 75 10/17/17 11:00 100 Room Air Result Diagram: 10/18/17 0609 10/17/17 0615 Imaging Last Impressions Abdomen/Pelvis CT 10/07/172052 Signed Impressions: Service Date/Time: Saturday, October 07, 2017 21:19 - CONCLUSION: 1. No acute abnormality seen. 2. Colonic diverticula. Cruz Guadarrama MD Procedures s/p EGD (10/08). Pt found to have gastric ulcers. Pt underwent epi/clip s/p debridement and wound vac placement (10/13) A/P Problem List: (1) Acute blood loss anemia ICD Codes: D62 - Acute posthemorrhagic anemia Status: Acute Plan: 1. acute gib. acute blood loss anemia/symptomatic. pt was using goody powder. egd 10/08 gastric ulcers. visible vessel...epi/clip per RN. pending report. egd 10/16 active bleeding. epi injection. unable to control IR 10/16: empiric embolization was performed of the GDA. s/p 12 units prbc 2. acute/ckd 4 3. sleep apnea 4. chronic leg ulceration. infected. s/p debridement.wound vac 5. htn continue to monitor h/h diet per GI ppi bid monitoring in ICU PT daily. will need snf at [place] updated his today at bedside continue nightly bipap. discussed with staff cont wound vac care and abx for infected leg ulceration. (2) GI bleed ICD Codes: K92.2 - Gastrointestinal hemorrhage, unspecified Status: Acute Plan: - see above (3) Acute worsening of stage 4 chronic kidney disease ICD Codes: N28.9 - Disorder of kidney and ureter, unspecified; N18.4 - Chronic kidney disease, stage 4 (severe) Status: Acute Plan: - a/ckd 4 - comgmt with Nephrology, Dr. Block - Cr/GFR continue to improve - (4) Skin ulcer ICD Codes: L98.499 - Non-pressure chronic ulcer of skin of other sites with unspecified severity Status: Chronic Plan: - case d/w Dr. Zuri Loya (10/10). - santyl - wound culture (10/10) --> E coli and Proteus mirabilis resistant to Levaquin - will DC ciprofloxin/doxycycline - Rocephin - Vascular Surgery Consult requested. Case d/w Dr. Victor. He will consult. - obtain segmental Doppler study reviewed conclusion: Normal CURT and TBI on the right. Abnormal TBI on the left. Multiple segments that could not be occluded in the left lower extremity possibly representing severely calcified vessels. CURT could not be calculated. As the patient is symptomatic in the left lower extremity, CTA abdomen with run off recommended. - Can NOT obtain CTA with runoff at this time d/t ARF - see above (5) Sleep apnea ICD Codes: G47.30 - Sleep apnea, unspecified Status: Chronic Plan: - Pt will need re-evaluation with polysomnogram outpt. (6) HTN (hypertension) ICD Codes: I10 - Essential (primary) hypertension Status: Chronic Plan: - metoprolol - observe Problem Qualifiers (1) GI bleed: Qualified Codes: K92.2 - Gastrointestinal hemorrhage, unspecified (2) Skin ulcer: Qualified Codes: L98.492 - Non-pressure chronic ulcer of skin of other sites with fat layer exposed (3) Sleep apnea: Qualified Codes: G47.30 - Sleep apnea, unspecified (4) HTN (hypertension): Qualified Codes: I10 - Essential (primary) hypertension Francisco J Umanzor MD October 18, 2017 10:55
--- NOTE | 2017-10-18 12:04 | HHI.GIFU ---
Subjective Remarks pt resting in bed, just had bed bath. No obvious bleeding. no complaints other than he wants to eat. (Bhargavi Campbell) Objective Vitals I&O Vital Signs Date Time Temp Pulse Resp B/P (MAP) Pulse Ox O2 Delivery O2 Flow Rate FiO2 10/18/17 10:00 79 10/18/17 08:56 98 10/18/17 08:00 84 10/18/17 08:00 98 Room Air 10/18/17 08:00 98.1 84 19 134/74 (94) 97 10/18/17 06:00 86 10/18/17 04:00 98.4 84 26 138/74 (95) 97 10/18/17 04:00 84 10/18/17 02:00 86 10/18/17 00:00 98.5 77 23 116/65 (82) 97 10/18/17 00:00 77 10/17/17 22:00 80 10/17/17 21:36 97 21 10/17/17 20:00 94 Room Air 10/17/17 20:00 92 10/17/17 20:00 98.7 92 20 143/87 (105) 94 10/17/17 18:00 90 10/17/17 16:00 88 10/17/17 16:00 98.8 88 19 128/66 (86) 100 10/17/17 15:00 98 Room Air 10/17/17 14:00 88 10/17/17 12:00 98.3 75 17 120/77 (91) 97 10/17/17 12:00 75 I/O 10/17/17 10/17/17 10/17/17 10/18/17 10/18/17 10/18/17 07:00 15:00 23:00 07:00 15:00 23:00 Intake Total 600 ml 1060 ml 1000 ml Output Total 1800 ml 2025 ml 1050 ml Balance -1200 ml -965 ml -50 ml Intake Oral 600 ml 960 ml 1000 ml IV Total 100 ml Output Urine Total 1700 ml 1975 ml 900 ml Drainage Total 100 ml 50 ml 150 ml # Voids 2 # Bowel Movements 0 1 Laboratory Last Impressions Chest X-Ray 10/16/17 0600 Signed Impressions: Service Date/Time: Monday, October 16, 2017 03:58 - CONCLUSION: 1. Left lower lobe consolidation. 2. ET and central line tips in good position. Lawrence Raya MD Catheter Placement X-Ray 10/15/17 0000 Signed Impressions: Service Date/Time: Sunday, October 15, 2017 17:46 - CONCLUSION: Uncomplicated line placement as above. Pb Orosco MD Abdomen Arteriogram 10/15/17 0000 Signed Impressions: Service Date/Time: Sunday, October 15, 2017 17:46 - CONCLUSION: 1. Limited anatomic visualization due to severe respiratory motion artifact. 2. Hemoclips are identified in the expected distribution of the GDA. As the patient was reportedly actively bleeding by GI and patient's systolic blood pressure was in the 80s on presentation to the interventional department, empiric embolization was performed of the GDA. Pressures at the termination of the procedure were approximately 110 systolic. Pb Orosco MD Abdomen X-Ray 10/10/17 0000 Signed Impressions: Service Date/Time: Tuesday, October 10, 2017 15:26 - CONCLUSION: 1. Findings of mild small bowel ileus in the lower quadrant. Constantino Hagen MD Abdomen/Pelvis CT 10/07/172052 Signed Impressions: Service Date/Time: Saturday, October 07, 2017 21:19 - CONCLUSION: 1. No acute abnormality seen. 2. Colonic diverticula. Cruz Guadarrama MD Laboratory Tests Test 10/17/17 20:05 10/18/17 06:09 Hemoglobin 7.9 7.6 Hematocrit 23.8 22.4 White Blood Count 10.5 Red Blood Count 2.56 Mean Corpuscular Volume 87.6 Mean Corpuscular Hemoglobin 29.7 Mean Corpuscular Hemoglobin Concent 33.9 Red Cell Distribution Width 16.8 Platelet Count 226 Mean Platelet Volume 8.7 Neutrophils (%) (Auto) 80.0 Lymphocytes (%) (Auto) 8.7 Monocytes (%) (Auto) 6.7 Eosinophils (%) (Auto) 4.2 Basophils (%) (Auto) 0.4 Neutrophils # (Auto) 8.4 Lymphocytes # (Auto) 0.9 Monocytes # (Auto) 0.7 Eosinophils # (Auto) 0.4 Basophils # (Auto) 0.0 CBC Comment DIFF FINAL Differential Comment Date/Time Source Procedure Growth Status 10/10/17 15:45 Wound Leg Gram Stain - Final Complete 4/23/18 15:45 Wound Culture - Final Escherichia Coli Proteus Mirabilis Complete Physical Exam HEENT: Normocephalic; atraumatic CHEST: Even/unlabored CARDIAC: RRR ABDOMEN: obese, soft, nontender,BS + [employer]: No focal deficits; alert and oriented times three. (Bhargavi Campbell) Assessment and Plan Plan Assessment: - Anemia with reports of rectal bleeding as per HPI Reports black and maroon colored stools that began yesterday while at a viewing. Last BM was prior to transfer. H/H on admission 4.5/13.8. Denies history of GIB. Has never had EGD or colonoscopy. Of note, has been taking daily Ibuprofen and Aleve for leg pain. Occasional ETOH. - CKD- GFR 16. Hyperkalemia- K+ 5.5 - High risk for GI procedures- history of AAA repair (10/09) --> S/P EGD (10/08) --> Gastritis with gastric ulcer with visible vessel- Endoclipping with epi injection. Pt received 6 U of PRBCs total yesterday, only on following EGD. Denies BM since EGD. Denies nausea, vomiting, abdominal pain. H/H stable over night currently 7.8/22.8 10/10/17 mild decrease hgb overnight, 7.4. no obvious GI bleeding. 10/16/17 s/p EGD revealed residual food, active bleed s/p epi inj, pt then sent to IR for embolization GDA. sent to [facility] for hemorrhagic shock hgb improved to 9.4 after 3 units PRBC. +black tarry stool but not vangie bleeding 10/17/17 HH dropped today. no obvious bleeding. fluid leaking from right groin cath site. 10/18/17 hgb dropped from 7.9 to 7.6. no obvious bleeding. will need to stay on clears Plan: - clear liquids - BID protonix - Monitor closely - Transfuse PRBC as needed - notify GI of active bleeding - supportive care pt seen by myself and Dr Carrillo and this note is on his behalf (Bhargavi Campbell) Plan Patient was seen and examined patient any abdominal pain but drop a little bit from 7.9-7.6 so we will keep him on clear liquid if stable tomorrow we will advance diet as tolerated (Nikko Carrillo MD) Bhargavi Campbell October 18, 2017 12:04 Nikko Carrillo MD October 18, 2017 20:08
--- NOTE | 2017-10-18 16:04 | HHI.NPPN ---
Subjective General Problems: Anemia, Edema, Hypertension Renal Failure: Chronic, Stage IV History of Present Illness 46 year old male with a past medical history of chronic kidney disease stage 4, Hypertension, sleep apnea, chronic left lower extremity leg ulcer, obesity, and CHF. Patient presented to the ED with abdominal pain and maroon stools. He was found to have a hemoglobin of 4.5. His blood pressure is elevated now but per records when EMS arrived he was found to be hypotensive with a SBP in the 80 's. Nephrology is consulted for acute on chronic renal failure with a creatinine of 4.72 and potassium of 5.5. His baseline creatinine is at 2.5 to 3.0 and his flat examiner is Dr. Florez. Additional Remarks No acute complaints. Working with PT. (Zehra Dela Cruz) Review of Systems General Constitutional: Fatigue (Zehra Dela Cruz) Respiratory Respiratory Remarks Denies SOB (Zehra Dela Cruz) Cardiovascular Cardiac: Edema (Zehra Dela Cruz) Gastrointestinal GI Remarks denies abdominal pain (Zehra Dela Cruz) Objective Data Data Vital Signs Date Time Temp Pulse Resp B/P (MAP) Pulse Ox O2 Delivery O2 Flow Rate FiO2 10/18/17 14:00 75 10/18/17 12:00 85 10/18/17 12:00 98.7 85 20 125/71 (89) 100 10/18/17 10:00 79 10/18/17 08:56 98 10/18/17 08:00 84 10/18/17 08:00 98 Room Air 10/18/17 08:00 98.1 84 19 134/74 (94) 97 10/18/17 06:00 86 10/18/17 04:00 98.4 84 26 138/74 (95) 97 10/18/17 04:00 84 10/18/17 02:00 86 10/18/17 00:00 98.5 77 23 116/65 (82) 97 10/18/17 00:00 77 10/17/17 22:00 80 10/17/17 21:36 97 21 10/17/17 20:00 94 Room Air 10/17/17 20:00 92 10/17/17 20:00 98.7 92 20 143/87 (105) 94 4/30/18 18:00 90 (Zehra Dela Cruz) -: 10/18/17 0609 10/17/17 0615 Imaging Last Impressions Chest X-Ray 10/16/17 0600 Signed Impressions: Service Date/Time: Monday, October 16, 2017 03:58 - CONCLUSION: 1. Left lower lobe consolidation. 2. ET and central line tips in good position. Lawrence Raya MD Catheter Placement X-Ray 10/15/17 0000 Signed Impressions: Service Date/Time: Sunday, October 15, 2017 17:46 - CONCLUSION: Uncomplicated line placement as above. Pb Orosco MD Abdomen Arteriogram 10/15/17 0000 Signed Impressions: Service Date/Time: Sunday, October 15, 2017 17:46 - CONCLUSION: 1. Limited anatomic visualization due to severe respiratory motion artifact. 2. Hemoclips are identified in the expected distribution of the GDA. As the patient was reportedly actively bleeding by GI and patient's systolic blood pressure was in the 80s on presentation to the interventional department, empiric embolization was performed of the GDA. Pressures at the termination of the procedure were approximately 110 systolic. Pb Orosco MD Abdomen X-Ray 10/10/17 0000 Signed Impressions: Service Date/Time: Tuesday, October 10, 2017 15:26 - CONCLUSION: 1. Findings of mild small bowel ileus in the lower quadrant. Constantino Hagen MD Abdomen/Pelvis CT 10/07/172052 Signed Impressions: Service Date/Time: Saturday, October 07, 2017 21:19 - CONCLUSION: 1. No acute abnormality seen. 2. Colonic diverticula. Cruz Guadarrama MD (Zehra Dela Cruz) Physical Exam General Appearance: Well Nourished, No Acute Distress, Comfortable (Zehra Dela Cruz) Throat Throat Exam: Oral Mucosa [place] & Moist (Zehra Dela CruzP) Neck Neck Exam: Neck Supple (Zehra Dela CruzP) Pulmonary Resp Exam: Breath Sounds Equal, No Distress, Decreased Bases, Diminished Breath Sounds (Zehra Dela CruzP) Cardiology CV Exam: Regular, Normal Sinus Rhythm (Zehra Dela Cruz) Gastrointestinal/Abdomen GI Exam: Soft, Non-Tender, Bowel Sounds Present GI Remarks large (Zehra Dela Cruz) Integumentary Skin Exam: Clear, Warm Skin Remarks wound vac left foot (Zehra Dela Cruz) Extremeties Extremities Exam: Trace Edema (left lower leg with dressing.) (Zehra Dela Cruz) Neurologic Neuro Exam: Alert, Awake, Oriented (Zehra Dela Cruz) Psychiatric Psych Exam: Appropriate Responses (Zehra Dela Cruz) Assessment/Plan Problem List: (1) Acute worsening of stage 4 chronic kidney disease ICD Codes: N28.9 - Disorder of kidney and ureter, unspecified; N18.4 - Chronic kidney disease, stage 4 (severe) Status: Acute Plan: Acute kidney injury with admission creatinine of 4.72 and potassium of 5.5 from most likely hypotension with blood loss and NSAID use. Chronic kidney disease stage 4 from most likely uncontrolled hypertension. His baseline creatinine is at 2.5 to 3.0 and his flat examiner is Dr. Florez. CT of abdomen is noted to have kidney of normal size and shape. There is no mass, stone or hydronephrosis. GI bleed - urgent embolization with IR yesterday on 10/[address] Plan Creatinine stable recheck in AM UOP maintained with 2.8 L UOP/24 hours. Follow the urine out put and BMP. Avoid Nephrotoxins. Blood pressure stable (2) Sleep apnea ICD Codes: G47.30 - Sleep apnea, unspecified Status: Chronic (3) HTN (hypertension) ICD Codes: I10 - Essential (primary) hypertension Status: Chronic Plan: Will monitor (4) Skin ulcer ICD Codes: L98.499 - Non-pressure chronic ulcer of skin of other sites with unspecified severity Status: Chronic Plan: Dressing on Wound care has been consulted (5) Acute blood loss anemia ICD Codes: D62 - Acute posthemorrhagic anemia Status: Acute Plan: On Protonix (Zehra Dela Cruz) Problem List: (1) Acute worsening of stage 4 chronic kidney disease ICD Codes: N28.9 - Disorder of kidney and ureter, unspecified; N18.4 - Chronic kidney disease, stage 4 (severe) Status: Acute Plan: Acute kidney injury with admission creatinine of 4.72 and potassium of 5.5 from most likely hypotension with blood loss and NSAID use. Chronic kidney disease stage 4 from most likely uncontrolled hypertension. His baseline creatinine is at 2.5 to 3.0 and his flat examiner is Dr. Florez. CT of abdomen is noted to have kidney of normal size and shape. There is no mass, stone or hydronephrosis. GI bleed - urgent embolization with IR yesterday on 10/[address] Plan Creatinine stable recheck in AM UOP maintained with 2.8 L UOP/24 hours. Follow the urine out put and BMP. Avoid Nephrotoxins. Blood pressure stable. Patient seen and examined, agree with above. Hgb. is low but stable, advance diet as per GI. Creatinine started improving. (2) Sleep apnea ICD Codes: G47.30 - Sleep apnea, unspecified Status: Chronic (3) HTN (hypertension) ICD Codes: I10 - Essential (primary) hypertension Status: Chronic Plan: Will monitor (4) Skin ulcer ICD Codes: L98.499 - Non-pressure chronic ulcer of skin of other sites with unspecified severity Status: Chronic Plan: Dressing on Wound care has been consulted (5) Acute blood loss anemia ICD Codes: D62 - Acute posthemorrhagic anemia Status: Acute Plan: On Protonix (Aden Block MD) Problem Qualifiers (1) Sleep apnea: Qualified Codes: G47.30 - Sleep apnea, unspecified (2) HTN (hypertension): Qualified Codes: I10 - Essential (primary) hypertension (3) Skin ulcer: Qualified Codes: L98.492 - Non-pressure chronic ulcer of skin of other sites with fat layer exposed Zehra Dela Cruz October 18, 2017 16:04 Aden Block MD October 18, 2017 16:55
[2017-10-18] MEDS: cefTRIAXone INJ 1,000 MG in SODIUM CHLORIDE 0.9% INJ 100 ML IV SCH (17:10)
[2017-10-19] VITALS (11 sets, daily range): BP systolic 120–144; BP diastolic 64–84; PULSE 68–91; RESP 14–23; TEMP 98.4–99.5; O2SAT 93–100
[2017-10-19] MEDS: RESP: ALBUTEROL 2.5 MG/IPRATROPIUM 0.5 MG NEB (SCH) INH ×4 (03:37→20:18)
[2017-10-19] MEDS: ACETAMINOPHEN/HYDROcodone 325 MG/10 MG TAB PO PRN ×3 (05:35→21:25)
[2017-10-19] MEDS: hydrALAZINE HCL 100 MG TAB PO SCH ×3 (06:15→21:27)
[2017-10-19 07:22] LABS: AUTOMATED NEUTROPHIL # 8.4 TH/MM3 (1.8-7.7); BASOPHIL # 0.1 TH/MM3 (0-0.2); BASOPHIL % 0.5 % (0.0-2.0); EOSINOPHIL # 0.4 TH/MM3 (0-0.4); EOSINOPHIL % 3.9 % (0.0-4.0); HEMATOCRIT 24.6 % (39.0-51.0); HEMOGLOBIN 8.1 GM/DL (13.0-17.0); LYMPH % 8.1 % (9.0-44.0); LYMPHOCYTE # 0.8 TH/MM3 (1.0-4.8); MEAN CELL VOLUME 89.1 FL (80.0-100.0); MEAN CORPUSCULAR HEMOGLOBIN 29.3 PG (27.0-34.0); MEAN CORPUSCULAR HGB CONC 32.9 % (32.0-36.0); MONO % 6.1 % (0.0-8.0); MONOCYTE # 0.6 TH/MM3 (0-0.9); NEUT % 81.4 % (16.0-70.0); PLATELET COUNT 231 TH/MM3 (150-450); RED BLOOD COUNT 2.77 MIL/MM3 (4.50-5.90); RED CELL DISTRIBUTION WIDTH 16.8 % (11.6-17.2); WHITE BLOOD COUNT 10.3 TH/MM3 (4.0-11.0)
[2017-10-19 07:58] LABS: BICARBONATE 26.6 MEQ/L (21.0-32.0); CALCIUM 8.2 MG/DL (8.5-10.1); CREATININE 2.49 MG/DL (0.60-1.30)
[2017-10-19] MEDS: CHLORHEXIDINE 0.12% (ORAL KIT) 15 ML CUP MT SCH ×2 (08:00→20:00)
[2017-10-19] MEDS: SODIUM CHLORIDE 0.9% FLUSH 10 ML FLUSH IV FLUSH SCH ×2 (08:34→21:28)
[2017-10-19] MEDS: NIFEdipine 60 MG SUSTAINED RELEASE TAB PO SCH ×2 (08:34→21:26)
[2017-10-19] MEDS: CHOLECALCIFEROL (VIT D3) 5000 UNIT CAP PO SCH (08:34)
[2017-10-19] MEDS: METOPROLOL TARTRATE 50 MG TAB PO SCH ×2 (08:34→21:26)
[2017-10-19] MEDS: DOCUSATE SODIUM 50 MG/SENNA 8.6 MG TAB PO SCH ×2 (08:34→21:00)
[2017-10-19] MEDS: ISOSORBIDE DINITRATE 20 MG TAB PO SCH ×3 (08:34→17:45)
[2017-10-19] MEDS: PANTOPRAZOLE SODIUM 40 MG VIAL IV PUSH SCH ×2 (08:34→21:28)
[2017-10-19] MEDS: COLLAGENASE OINT 30 GM TUBE TOPICAL SCH (08:34)
--- NOTE | 2017-10-19 09:52 | HHI.PR ---
Subjective Remarks eager to eat solid food. no reported bleeding Objective Vitals heart reg lung cta abd s/nt ext no edema left foot wound vac Vital Signs Date Time Temp Pulse Resp B/P (MAP) Pulse Ox O2 Delivery O2 Flow Rate FiO2 10/19/17 08:00 Room Air 10/19/17 08:00 98.5 80 14 138/84 (102) 100 10/19/17 08:00 80 10/19/17 06:00 84 10/19/17 04:00 98.5 76 23 134/84 (101) 100 10/19/17 04:00 76 10/19/17 03:34 100 35 10/19/17 02:00 76 10/19/17 00:00 98.4 80 18 120/64 (82) 100 10/19/17 00:00 80 10/18/17 23:25 100 35 10/18/17 22:00 82 10/18/17 20:00 90 10/18/17 20:00 98.6 90 21 157/88 (111) 99 10/18/17 20:00 97 Room Air 10/18/17 18:00 77 10/18/17 16:00 98.5 87 20 122/59 (80) 99 10/18/17 16:00 87 10/18/17 14:00 75 10/18/17 12:00 85 10/18/17 12:00 98.7 85 20 125/71 (89) 100 10/18/17 10:00 79 Result Diagram: 10/19/17 0629 10/19/17 0629 Imaging Last Impressions Abdomen/Pelvis CT 10/07/172052 Signed Impressions: Service Date/Time: Saturday, October 07, 2017 21:19 - CONCLUSION: 1. No acute abnormality seen. 2. Colonic diverticula. Cruz Guadarrama MD Procedures s/p EGD (10/08). Pt found to have gastric ulcers. Pt underwent epi/clip s/p debridement and wound vac placement (10/13) A/P Problem List: (1) Acute blood loss anemia ICD Codes: D62 - Acute posthemorrhagic anemia Status: Acute Plan: 1. acute gib. acute blood loss anemia/symptomatic. pt was using goody powder. egd 10/08 gastric ulcers. visible vessel...epi/clip per RN. egd 10/16 active bleeding. epi injection. unable to control IR 10/16: empiric embolization was performed of the GDA. s/p 12 units prbc 2. acute/ckd 4 3. sleep apnea 4. chronic leg ulceration. infected. s/p debridement.wound vac 5. htn continue to monitor h/h. stable over past several days diet advancement per GI ppi bid transfer to med/surg PT daily. will need snf at dc continue nightly bipap. cont wound vac care and abx for infected leg ulceration. If stable h/h and tolerating food will likely d/c to snf in next 2 days (2) GI bleed ICD Codes: K92.2 - Gastrointestinal hemorrhage, unspecified Status: Acute Plan: - see above (3) Acute worsening of stage 4 chronic kidney disease ICD Codes: N28.9 - Disorder of kidney and ureter, unspecified; N18.4 - Chronic kidney disease, stage 4 (severe) Status: Acute Plan: - a/ckd 4 - comgmt with Nephrology, Dr. Block - Cr/GFR continue to improve - (4) Skin ulcer ICD Codes: L98.499 - Non-pressure chronic ulcer of skin of other sites with unspecified severity Status: Chronic Plan: - case d/w Dr. Zuri oLya (10/10). - santyl - wound culture (10/10) --> E coli and Proteus mirabilis resistant to Levaquin - will DC ciprofloxin/doxycycline - Rocephin - Vascular Surgery Consult requested. Case d/w Dr. Victor. He will consult. - obtain segmental Doppler study reviewed conclusion: Normal CURT and TBI on the right. Abnormal TBI on the left. Multiple segments that could not be occluded in the left lower extremity possibly representing severely calcified vessels. CURT could not be calculated. As the patient is symptomatic in the left lower extremity, CTA abdomen with run off recommended. - Can NOT obtain CTA with runoff at this time d/t ARF - see above (5) Sleep apnea ICD Codes: G47.30 - Sleep apnea, unspecified Status: Chronic Plan: - Pt will need re-evaluation with polysomnogram outpt. (6) HTN (hypertension) ICD Codes: I10 - Essential (primary) hypertension Status: Chronic Plan: - metoprolol - observe Problem Qualifiers (1) GI bleed: Qualified Codes: K92.2 - Gastrointestinal hemorrhage, unspecified (2) Skin ulcer: Qualified Codes: L98.492 - Non-pressure chronic ulcer of skin of other sites with fat layer exposed (3) Sleep apnea: Qualified Codes: G47.30 - Sleep apnea, unspecified (4) HTN (hypertension): Qualified Codes: I10 - Essential (primary) hypertension Francisco J Umanzor MD October 19, 2017 09:52
--- NOTE | 2017-10-19 10:42 | HHI.NPPN ---
Subjective General Problems: Anemia, Edema, Hypertension Renal Failure: Chronic, Stage IV History of Present Illness 46 year old male with a past medical history of chronic kidney disease stage 4, Hypertension, sleep apnea, chronic left lower extremity leg ulcer, obesity, and CHF. Patient presented to the ED with abdominal pain and maroon stools. He was found to have a hemoglobin of 4.5. His blood pressure is elevated now but per records when EMS arrived he was found to be hypotensive with a SBP in the 80 's. Nephrology is consulted for acute on chronic renal failure with a creatinine of 4.72 and potassium of 5.5. His baseline creatinine is at 2.5 to 3.0 and his continuity manager is Dr. Florez. Additional Remarks Resting comfortably. Creatinine is at baseline at 2.49. (Zehra Dela Cruz) Review of Systems General Constitutional: Fatigue (Zehra Dela Cruz) Respiratory Respiratory Remarks Denies SOB (Zehra Dela Cruz) Cardiovascular Cardiac Remarks Denies chest pain (Zehra Dela Cruz) Gastrointestinal GI Remarks denies abdominal pain (Zehra Dela Cruz) Objective Data Data Vital Signs Date Time Temp Pulse Resp B/P (MAP) Pulse Ox O2 Delivery O2 Flow Rate FiO2 10/19/17 08:00 Room Air 10/19/17 08:00 98.5 80 14 138/84 (102) 100 10/19/17 08:00 80 10/19/17 06:00 84 10/19/17 04:00 98.5 76 23 134/84 (101) 100 10/19/17 04:00 76 10/19/17 03:34 100 35 10/19/17 02:00 76 10/19/17 00:00 98.4 80 18 120/64 (82) 100 10/19/17 00:00 80 10/18/17 23:25 100 35 10/18/17 22:00 82 10/18/17 20:00 90 10/18/17 20:00 98.6 90 21 157/88 (111) 99 10/18/17 20:00 97 Room Air 10/18/17 18:00 77 10/18/17 16:00 98.5 87 20 122/59 (80) 99 10/18/17 16:00 87 5/1/18 14:00 75 10/18/17 12:00 85 10/18/17 12:00 98.7 85 20 125/71 (89) 100 (Zehra Dela Cruz) -: 10/19/17 0629 10/19/17 0629 Imaging Last Impressions Chest X-Ray 10/16/17 0600 Signed Impressions: Service Date/Time: Monday, October 16, 2017 03:58 - CONCLUSION: 1. Left lower lobe consolidation. 2. ET and central line tips in good position. Lawrence Raya MD Catheter Placement X-Ray 10/15/17 0000 Signed Impressions: Service Date/Time: Sunday, October 15, 2017 17:46 - CONCLUSION: Uncomplicated line placement as above. Pb Orosco MD Abdomen Arteriogram 10/15/17 0000 Signed Impressions: Service Date/Time: Sunday, October 15, 2017 17:46 - CONCLUSION: 1. Limited anatomic visualization due to severe respiratory motion artifact. 2. Hemoclips are identified in the expected distribution of the GDA. As the patient was reportedly actively bleeding by GI and patient's systolic blood pressure was in the 80s on presentation to the interventional department, empiric embolization was performed of the GDA. Pressures at the termination of the procedure were approximately 110 systolic. Pb Orosco MD Abdomen X-Ray 10/10/17 0000 Signed Impressions: Service Date/Time: Tuesday, October 10, 2017 15:26 - CONCLUSION: 1. Findings of mild small bowel ileus in the lower quadrant. Constantino Hagen MD Abdomen/Pelvis CT 10/07/172052 Signed Impressions: Service Date/Time: Saturday, October 07, 2017 21:19 - CONCLUSION: 1. No acute abnormality seen. 2. Colonic diverticula. Cruz Guadarrama MD Tubes & Lines: Vas-Cath Tubes & Lines Comment right chest wall (Zehra Dela Cruz) Physical Exam General Appearance: Well Nourished, No Acute Distress, Comfortable, Obese (Zehra Dela Cruz) Throat Throat Exam: Oral Mucosa [place] & Moist (Zehra Dela Cruz) Neck Neck Exam: Neck Supple (Zehra Dela Cruz) Pulmonary Resp Exam: Breath Sounds Equal, No Distress, Decreased Bases, Diminished Breath Sounds (Zehra Dela Cruz) Cardiology CV Exam: Regular, Normal Sinus Rhythm (Zehra Dela Cruz) Gastrointestinal/Abdomen GI Exam: Soft, Non-Tender, Bowel Sounds Present GI Remarks large (Zehra Dela Cruz) Integumentary Skin Exam: Clear, Warm Skin Remarks wound vac left foot (Zehra Dela Cruz) Extremeties Extremities Exam: Trace Edema (left lower leg with dressing.) (Zehra Dela Cruz) Neurologic Neuro Exam: Alert, Awake, Oriented (Zehra Dela Cruz) Psychiatric Psych Exam: Appropriate Responses (Zehra Dela Cruz) Assessment/Plan Problem List: (1) Acute worsening of stage 4 chronic kidney disease ICD Codes: N28.9 - Disorder of kidney and ureter, unspecified; N18.4 - Chronic kidney disease, stage 4 (severe) Status: Acute Plan: Acute kidney injury with admission creatinine of 4.72 and potassium of 5.5 from most likely hypotension with blood loss and NSAID use. Chronic kidney disease stage 4 from most likely uncontrolled hypertension. His baseline creatinine is at 2.5 to 3.0 and his continuity manager is Dr. Florez. CT of abdomen is noted to have kidney of normal size and shape. There is no mass, stone or hydronephrosis. GI bleed - urgent embolization with IR yesterday on 10/[address] Plan Creatinine stable and at baseline at 2.49 today UOP maintained with 2.1 L UOP/24 hours. Follow the urine out put and BMP. HGB improving Avoid Nephrotoxins. (2) Sleep apnea ICD Codes: G47.30 - Sleep apnea, unspecified Status: Chronic (3) HTN (hypertension) ICD Codes: I10 - Essential (primary) hypertension Status: Chronic Plan: Will monitor (4) Skin ulcer ICD Codes: L98.499 - Non-pressure chronic ulcer of skin of other sites with unspecified severity Status: Chronic Plan: Dressing on Wound care has been consulted (5) Acute blood loss anemia ICD Codes: D62 - Acute posthemorrhagic anemia Status: Acute Plan: On Protonix (Zehra Dela Cruz) Problem List: (1) Acute worsening of stage 4 chronic kidney disease ICD Codes: N28.9 - Disorder of kidney and ureter, unspecified; N18.4 - Chronic kidney disease, stage 4 (severe) Status: Acute Plan: Acute kidney injury with admission creatinine of 4.72 and potassium of 5.5 from most likely hypotension with blood loss and NSAID use. Chronic kidney disease stage 4 from most likely uncontrolled hypertension. His baseline creatinine is at 2.5 to 3.0 and his continuity manager is Dr. Florez. CT of abdomen is noted to have kidney of normal size and shape. There is no mass, stone or hydronephrosis. GI bleed - urgent embolization with IR yesterday on 10/[address] Plan Creatinine stable and at baseline at 2.49 today UOP maintained with 2.1 L UOP/24 hours. Follow the urine out put and BMP. HGB improving Avoid Nephrotoxins. Patient seen and examined, agree with above. Non oliguric, Creatinine is 2.49. (2) Sleep apnea ICD Codes: G47.30 - Sleep apnea, unspecified Status: Chronic (3) HTN (hypertension) ICD Codes: I10 - Essential (primary) hypertension Status: Chronic Plan: Will monitor (4) Skin ulcer ICD Codes: L98.499 - Non-pressure chronic ulcer of skin of other sites with unspecified severity Status: Chronic Plan: Dressing on Wound care has been consulted (5) Acute blood loss anemia ICD Codes: D62 - Acute posthemorrhagic anemia Status: Acute Plan: On Protonix (Aden Block MD) Problem Qualifiers (1) Sleep apnea: Qualified Codes: G47.30 - Sleep apnea, unspecified (2) HTN (hypertension): Qualified Codes: I10 - Essential (primary) hypertension (3) Skin ulcer: Qualified Codes: L98.492 - Non-pressure chronic ulcer of skin of other sites with fat layer exposed Zehra Dela Cruz October 19, 2017 10:42 Aden Block MD October 19, 2017 18:34
[2017-10-19] MEDS ORDERED: MIDAZOLAM HCL 2 MG/2 ML VIAL IV PUSH ONE ×2 (12:30→14:30)
--- NOTE | 2017-10-19 13:48 | HHI.GIFU ---
Subjective Remarks Pt resting in bed. No sign bleeding. EAger for food. (Bhargavi Campbell) Objective Vitals I&O Vital Signs Date Time Temp Pulse Resp B/P (MAP) Pulse Ox O2 Delivery O2 Flow Rate FiO2 10/19/17 12:00 98.4 68 17 132/80 (97) 100 10/19/17 12:00 68 10/19/17 08:00 Room Air 10/19/17 08:00 98.5 80 14 138/84 (102) 100 10/19/17 08:00 80 10/19/17 06:00 84 10/19/17 04:00 98.5 76 23 134/84 (101) 100 10/19/17 04:00 76 10/19/17 03:34 100 35 10/19/17 02:00 76 10/19/17 00:00 98.4 80 18 120/64 (82) 100 10/19/17 00:00 80 10/18/17 23:25 100 35 10/18/17 22:00 82 10/18/17 20:00 90 10/18/17 20:00 98.6 90 21 157/88 (111) 99 10/18/17 20:00 97 Room Air 10/18/17 18:00 77 10/18/17 16:00 98.5 87 20 122/59 (80) 99 10/18/17 16:00 87 10/18/17 14:00 75 I/O 10/18/17 10/18/17 10/18/17 10/19/17 10/19/17 10/19/17 07:00 15:00 23:00 07:00 15:00 23:00 Intake Total 1000 ml 460 ml 1200 ml Output Total 1050 ml 1500 ml 840 ml Balance -50 ml -1040 ml 360 ml Intake Oral 1000 ml 360 ml 1200 ml IV Total 100 ml Output Urine Total 900 ml 1350 ml 750 ml Drainage Total 150 ml 150 ml 90 ml # Voids 2 1 2 # Bowel Movements 3 Laboratory Laboratory Tests Test 10/19/17 06:29 White Blood Count 10.3 Red Blood Count 2.77 Hemoglobin 8.1 Hematocrit 24.6 Mean Corpuscular Volume 89.1 Mean Corpuscular Hemoglobin 29.3 Mean Corpuscular Hemoglobin Concent 32.9 Red Cell Distribution Width 16.8 Platelet Count 231 Mean Platelet Volume 9.0 Neutrophils (%) (Auto) 81.4 Lymphocytes (%) (Auto) 8.1 Monocytes (%) (Auto) 6.1 Eosinophils (%) (Auto) 3.9 Basophils (%) (Auto) 0.5 Neutrophils # (Auto) 8.4 Lymphocytes # (Auto) 0.8 Monocytes # (Auto) 0.6 Eosinophils # (Auto) 0.4 Basophils # (Auto) 0.1 CBC Comment DIFF FINAL Differential Comment Blood Urea Nitrogen 39 Creatinine 2.49 Random Glucose 102 Calcium Level 8.2 Sodium Level 144 Potassium Level 4.7 Chloride Level 110 Carbon Dioxide Level 26.6 Anion Gap 7 Estimat Glomerular Filtration Rate 34 Date/Time Source Procedure Growth Status 10/10/17 15:45 Wound Leg Gram Stain - Final Complete 10/10/17 15:45 Wound Culture - Final Escherichia Coli Proteus Mirabilis Complete Imaging Last Impressions Chest X-Ray 10/16/17 0600 Signed Impressions: Service Date/Time: Monday, October 16, 2017 03:58 - CONCLUSION: 1. Left lower lobe consolidation. 2. ET and central line tips in good position. Lawrence Raya MD Catheter Placement X-Ray 10/15/17 0000 Signed Impressions: Service Date/Time: Sunday, October 15, 2017 17:46 - CONCLUSION: Uncomplicated line placement as above. Pb Orosco MD Abdomen Arteriogram 10/15/17 0000 Signed Impressions: Service Date/Time: Sunday, October 15, 2017 17:46 - CONCLUSION: 1. Limited anatomic visualization due to severe respiratory motion artifact. 2. Hemoclips are identified in the expected distribution of the GDA. As the patient was reportedly actively bleeding by GI and patient's systolic blood pressure was in the 80s on presentation to the interventional department, empiric embolization was performed of the GDA. Pressures at the termination of the procedure were approximately 110 systolic. Pb Orosco MD Abdomen X-Ray 10/10/17 0000 Signed Impressions: Service Date/Time: Tuesday, October 10, 2017 15:26 - CONCLUSION: 1. Findings of mild small bowel ileus in the lower quadrant. Constantino Hagen MD Abdomen/Pelvis CT 10/07/172052 Signed Impressions: Service Date/Time: Saturday, October 07, 2017 21:19 - CONCLUSION: 1. No acute abnormality seen. 2. Colonic diverticula. Cruz Guadarrama MD Physical Exam HEENT: Normocephalic; atraumatic CHEST: Even/unlabored CARDIAC: RRR ABDOMEN: obese, soft, nontender,BS + [employer]: No focal deficits; alert and oriented times three. (Bhargavi Campbell) Assessment and Plan Plan Assessment: - Anemia with reports of rectal bleeding as per HPI Reports black and maroon colored stools that began yesterday while at a viewing. Last BM was prior to transfer. H/H on admission 4.5/13.8. Denies history of GIB. Has never had EGD or colonoscopy. Of note, has been taking daily Ibuprofen and Aleve for leg pain. Occasional ETOH. - CKD- GFR 16. Hyperkalemia- K+ 5.5 - High risk for GI procedures- history of AAA repair (10/09) --> S/P EGD (10/08) --> Gastritis with gastric ulcer with visible vessel- Endoclipping with epi injection. Pt received 6 U of PRBCs total yesterday, only on following EGD. Denies BM since EGD. Denies nausea, vomiting, abdominal pain. H/H stable over night currently 7.8/22.8 10/10/17 mild decrease hgb overnight, 7.4. no obvious GI bleeding. 10/16/17 s/p EGD revealed residual food, active bleed s/p epi inj, pt then sent to IR for embolization GDA. sent to [facility] for hemorrhagic shock hgb improved to 9.4 after 3 units PRBC. +black tarry stool but not vangie bleeding 10/17/17 HH dropped today. no obvious bleeding. fluid leaking from right groin cath site. 10/18/17 hgb dropped from 7.9 to 7.6. no obvious bleeding. will need to stay on clears 10/19/17 hh improved. hgb up to 8.1 today. no sign bleeding. tolerated full liquid lunch Plan: - heart healthy diet - BID protonix - Monitor closely - Transfuse PRBC as needed - notify GI of active bleeding - supportive care pt seen by myself and Dr Carrillo and this note is on his behalf (Bhargavi Campbell) Plan Patient is doing better today, hemoglobin stable, will advance diet as tolerated , we will continue monitoring hemoglobin (Nikko Carrillo MD) Bhargavi Campbell October 19, 2017 13:48 Nikko Carrillo MD October 19, 2017 21:51
[2017-10-19] MEDS: MORPHINE SULFATE 2 MG/ML SYRINGE IV PRN (13:58)
[2017-10-19] MEDS: cefTRIAXone INJ 1,000 MG in SODIUM CHLORIDE 0.9% INJ 100 ML IV SCH (16:26)
--- NOTE | 2017-10-19 18:08 | PD.WCN.NOT ---
Wound Consult Description: Left lower extremity wound VAC change as ordered with VAC settings @ 125mmHg low continuous suction. Communicated with: KYLAH Pickett RN, [facility] Patient Recommendation: Premedicate patient prior to wound VAC changes -- with wound vac settings @ 125mmHg low continuous suction per Dr Loya. Instill at least 30ml of NS into tubing ~30min prior to wound VAC removal. Additional Information: Patient seen on for wound VAC change to left lower extremity using Medium foam dressing. Neg Pressure Wound Therapy Wound Location Wound Location: Left lower extremity Wound Description Length: ~19cm Width: ~24cm Depth: ~1cm Wound bed appearance: 100% vascular beefy red granulation tissue Periwound appearance: Other (Minimally macerated) Settings Suction: 125 mmHg, Continuous Intensity: Low Other Information: Windowpaned Foam type: Black Number of pieces: other (4) Additonal Information ~30ml NS instilled into the tubing of the proximal end and clamped for ~1hr. Patient premedicated prior to wound VAC removal. All black granufoam was removed to reveal a shallow 100% granulating wound bed with beefy red vascular tissue. Wound cleansed with NS and gauze. Periwound was skin prepped using Cavilon barrier film. Entire periwound was window paned using VAC drape. ~4 pieces of black granufoam was used to cover wound bed and secured with VAC drape. Sensi-Trac pad was placed on the medial lower portion of black granufoam. Wound VAC was turned on with settings @ 125mmHg low continuous suction. PATIENT TOLERATED BEDSIDE WOUND VAC DRESSING POORLY WITH PRE MEDICATION AND ADDITIONAL MEDICATION GIVEN DURING DRESSING CHANGE. New canister placed with wound VAC dressing change as the canister placed on Tuesday was visualized to have >400ml. Yamile Perez [facility] October 19, 2017 18:08
--- NOTE | 2017-10-19 18:30 | PD.WCN.NOT ---
Wound Consult Additional Information: Received Vocera call from KYLAH duffy for leaking wound VAC dressing. Patient assessed with Kely duffy. Removed kwan wrap to reveal VAC drape that is rolling up from the heel exposing granufoam. Cut off rolled VAC drape with scissors .Skin barrier film was applied to intact skin on L heel and VAC dressing was resealed with VAC drape. VAC dressing is at low leak rate. Kwan wrap was reapplied to reinforce VAC dressing. Renea Fontaine CRN October 19, 2017 18:30
[2017-10-20] VITALS (10 sets, daily range): BP systolic 126–158; BP diastolic 73–106; PULSE 72–88; RESP 18–21; TEMP 98.4–98.8; O2SAT 96–100
[2017-10-20] MEDS: ACETAMINOPHEN/HYDROcodone 325 MG/10 MG TAB PO PRN ×3 (03:09→21:41)
[2017-10-20] MEDS: hydrALAZINE HCL 100 MG TAB PO SCH ×3 (05:05→21:41)
[2017-10-20] MEDS: CHLORHEXIDINE 0.12% (ORAL KIT) 15 ML CUP MT SCH ×2 (08:00→20:00)
[2017-10-20] MEDS: SODIUM CHLORIDE 0.9% FLUSH 10 ML FLUSH IV FLUSH SCH ×2 (08:25→21:39)
[2017-10-20] MEDS: CHOLECALCIFEROL (VIT D3) 5000 UNIT CAP PO SCH (08:26)
[2017-10-20] MEDS: NIFEdipine 60 MG SUSTAINED RELEASE TAB PO SCH ×2 (08:26→21:41)
[2017-10-20] MEDS: ISOSORBIDE DINITRATE 20 MG TAB PO SCH ×3 (08:26→17:32)
[2017-10-20] MEDS: METOPROLOL TARTRATE 50 MG TAB PO SCH ×2 (08:26→21:41)
[2017-10-20] MEDS: DOCUSATE SODIUM 50 MG/SENNA 8.6 MG TAB PO SCH ×2 (08:26→21:00)
[2017-10-20] MEDS: PANTOPRAZOLE SODIUM 40 MG VIAL IV PUSH SCH ×2 (08:26→21:39)
[2017-10-20] MEDS: COLLAGENASE OINT 30 GM TUBE TOPICAL SCH (08:28)
[2017-10-20 08:55] LABS: AUTOMATED NEUTROPHIL # 6.8 TH/MM3 (1.8-7.7); BASOPHIL # 0.1 TH/MM3 (0-0.2); BASOPHIL % 0.8 % (0.0-2.0); EOSINOPHIL # 0.4 TH/MM3 (0-0.4); EOSINOPHIL % 4.3 % (0.0-4.0); HEMOGLOBIN 7.6 GM/DL (13.0-17.0); LYMPH % 11.3 % (9.0-44.0); MEAN CELL VOLUME 88.3 FL (80.0-100.0); MEAN CORPUSCULAR HGB CONC 32.9 % (32.0-36.0); MEAN PLATELET VOLUME 8.2 FL (7.0-11.0); MONO % 6.7 % (0.0-8.0); MONOCYTE # 0.6 TH/MM3 (0-0.9); NEUT % 76.9 % (16.0-70.0); PLATELET COUNT 262 TH/MM3 (150-450); RED BLOOD COUNT 2.61 MIL/MM3 (4.50-5.90); RED CELL DISTRIBUTION WIDTH 16.6 % (11.6-17.2); WHITE BLOOD COUNT 8.9 TH/MM3 (4.0-11.0)
--- NOTE | 2017-10-20 09:57 | HHI.NPPN ---
Subjective General Problems: Anemia, Edema, Hypertension Renal Failure: Chronic, Stage IV History of Present Illness 46 year old male with a past medical history of chronic kidney disease stage 4, Hypertension, sleep apnea, chronic left lower extremity leg ulcer, obesity, and CHF. Patient presented to the ED with abdominal pain and maroon stools. He was found to have a hemoglobin of 4.5. His blood pressure is elevated now but per records when EMS arrived he was found to be hypotensive with a SBP in the 80 's. Nephrology is consulted for acute on chronic renal failure with a creatinine of 4.72 and potassium of 5.5. His baseline creatinine is at 2.5 to 3.0 and his supervisor pressing department is Dr. Florez. Additional Remarks Resting comfortably, diet advanced yesterday. (Zehra Dela Cruz) Review of Systems General Constitutional: Fatigue (Zehra Dela Cruz) Respiratory Respiratory Remarks Denies SOB (Zehra Dela Cruz) Cardiovascular Cardiac Remarks Denies chest pain (Zehra Dela Cruz) Gastrointestinal GI Remarks denies abdominal pain (Zehra Dela Cruz) Objective Data Data Vital Signs Date Time Temp Pulse Resp B/P (MAP) Pulse Ox O2 Delivery O2 Flow Rate FiO2 10/20/17 08:45 Nasal Cannula 2.00 10/20/17 08:03 98.8 85 18 143/76 (98) 97 10/20/17 08:00 86 10/20/17 04:00 87 10/20/17 04:00 98.4 80 20 154/98 (116) 100 10/20/17 00:28 99 35 10/20/17 00:00 85 10/20/17 00:00 98.5 80 21 152/106 (121) 100 10/19/17 20:18 94 21 10/19/17 20:00 99.5 91 18 136/84 (101) 95 10/19/17 20:00 Room Air 10/19/17 20:00 88 10/19/17 16:03 98.7 90 18 144/80 (101) 93 10/19/17 16:00 84 10/19/17 12:00 98.4 68 17 132/80 (97) 100 10/19/17 12:00 68 (Zehra Dela Cruz) -: 10/20/17 0848 10/19/17 0629 Imaging Last Impressions Chest X-Ray 10/16/17 0600 Signed Impressions: Service Date/Time: Monday, October 16, 2017 03:58 - CONCLUSION: 1. Left lower lobe consolidation. 2. ET and central line tips in good position. Lawrence Raya MD Catheter Placement X-Ray 10/15/17 0000 Signed Impressions: Service Date/Time: Sunday, October 15, 2017 17:46 - CONCLUSION: Uncomplicated line placement as above. Pb Orosco MD Abdomen Arteriogram 10/15/17 0000 Signed Impressions: Service Date/Time: Sunday, October 15, 2017 17:46 - CONCLUSION: 1. Limited anatomic visualization due to severe respiratory motion artifact. 2. Hemoclips are identified in the expected distribution of the GDA. As the patient was reportedly actively bleeding by GI and patient's systolic blood pressure was in the 80s on presentation to the interventional department, empiric embolization was performed of the GDA. Pressures at the termination of the procedure were approximately 110 systolic. Pb Orosco MD Abdomen X-Ray 10/10/17 0000 Signed Impressions: Service Date/Time: Tuesday, October 10, 2017 15:26 - CONCLUSION: 1. Findings of mild small bowel ileus in the lower quadrant. Constantino Hagen MD Abdomen/Pelvis CT 10/07/172052 Signed Impressions: Service Date/Time: Saturday, October 07, 2017 21:19 - CONCLUSION: 1. No acute abnormality seen. 2. Colonic diverticula. Cruz Guadarrama MD Tubes & Lines: Vas-Cath Tubes & Lines Comment right IJ (Zehra Dela Cruz) Physical Exam General Appearance: Well Nourished, No Acute Distress, Comfortable, Obese (Zehra Dela Cruz) Throat Throat Exam: Oral Mucosa [place] & Moist (Zehra Dela Cruz) Neck Neck Exam: Neck Supple (Zehra Dela Cruz) Pulmonary Resp Exam: Breath Sounds Equal, No Distress, Decreased Bases, Diminished Breath Sounds (Zehra Dela Cruz) Cardiology CV Exam: Regular, Normal Sinus Rhythm (Zehra Dela Cruz) Gastrointestinal/Abdomen GI Exam: Soft, Non-Tender, Bowel Sounds Present GI Remarks large (Zehra Dela Cruz) Integumentary Skin Exam: Clear, Warm Skin Remarks wound vac left foot (Zehra Dela Cruz) Extremeties Extremities Exam: Trace Edema (left lower leg with dressing.) (Zehra Dela Cruz) Neurologic Neuro Exam: Alert, Awake, Oriented (Zehra Dela Cruz) Psychiatric Psych Exam: Appropriate Responses (Zehra Dela Cruz) Assessment/Plan Problem List: (1) Acute worsening of stage 4 chronic kidney disease ICD Codes: N28.9 - Disorder of kidney and ureter, unspecified; N18.4 - Chronic kidney disease, stage 4 (severe) Status: Acute Plan: Acute kidney injury with admission creatinine of 4.72 and potassium of 5.5 from most likely hypotension with blood loss and NSAID use. Chronic kidney disease stage 4 from most likely uncontrolled hypertension. His baseline creatinine is at 2.5 to 3.0 and his supervisor pressing department is Dr. Florez. CT of abdomen is noted to have kidney of normal size and shape. There is no mass, stone or hydronephrosis. GI bleed - urgent embolization with IR yesterday on 10/[address] Plan Creatinine stable and at baseline at 2.49 yesterday UOP maintained with 1.2 L UOP/24 hours. Follow renal panel periodically. HGB stable Avoid Nephrotoxins. (2) Sleep apnea ICD Codes: G47.30 - Sleep apnea, unspecified Status: Chronic (3) HTN (hypertension) ICD Codes: I10 - Essential (primary) hypertension Status: Chronic Plan: Will monitor (4) Skin ulcer ICD Codes: L98.499 - Non-pressure chronic ulcer of skin of other sites with unspecified severity Status: Chronic Plan: Dressing on Wound care has been consulted (5) Acute blood loss anemia ICD Codes: D62 - Acute posthemorrhagic anemia Status: Acute Plan: On Protonix (Zehra Dela Cruz) Problem List: (1) Acute worsening of stage 4 chronic kidney disease ICD Codes: N28.9 - Disorder of kidney and ureter, unspecified; N18.4 - Chronic kidney disease, stage 4 (severe) Status: Acute Plan: Acute kidney injury with admission creatinine of 4.72 and potassium of 5.5 from most likely hypotension with blood loss and NSAID use. Chronic kidney disease stage 4 from most likely uncontrolled hypertension. His baseline creatinine is at 2.5 to 3.0 and his supervisor pressing department is Dr. Florez. CT of abdomen is noted to have kidney of normal size and shape. There is no mass, stone or hydronephrosis. GI bleed - urgent embolization with IR yesterday on 10/[address] Plan Creatinine stable and at baseline at 2.49 yesterday UOP maintained with 1.2 L UOP/24 hours. Follow renal panel periodically. HGB stable Avoid Nephrotoxins. Patient seen and examined, agree with above. Creatinine was 2.49, possibly at his baseline. (2) Sleep apnea ICD Codes: G47.30 - Sleep apnea, unspecified Status: Chronic (3) HTN (hypertension) ICD Codes: I10 - Essential (primary) hypertension Status: Chronic Plan: Will monitor (4) Skin ulcer ICD Codes: L98.499 - Non-pressure chronic ulcer of skin of other sites with unspecified severity Status: Chronic Plan: Dressing on Wound care has been consulted (5) Acute blood loss anemia ICD Codes: D62 - Acute posthemorrhagic anemia Status: Acute Plan: On Protonix (Aden Block MD) Problem Qualifiers (1) Sleep apnea: Qualified Codes: G47.30 - Sleep apnea, unspecified (2) HTN (hypertension): Qualified Codes: I10 - Essential (primary) hypertension (3) Skin ulcer: Qualified Codes: L98.492 - Non-pressure chronic ulcer of skin of other sites with fat layer exposed Zehra Dela Cruz October 20, 2017 09:57 Aden Block MD October 24, 2017 18:33
--- NOTE | 2017-10-20 10:28 | HHI.PR ---
Subjective Remarks no bleeding overnight. says his stool was brown. no problems with diet Objective Vitals heart reg lungs cta abd s/nt ext left leg wound vac Vital Signs Date Time Temp Pulse Resp B/P (MAP) Pulse Ox O2 Delivery O2 Flow Rate FiO2 10/20/17 08:45 Nasal Cannula 2.00 10/20/17 08:03 98.8 85 18 143/76 (98) 97 10/20/17 08:00 86 10/20/17 04:00 87 10/20/17 04:00 98.4 80 20 154/98 (116) 100 10/20/17 00:28 99 35 10/20/17 00:00 85 10/20/17 00:00 98.5 80 21 152/106 (121) 100 10/19/17 20:18 94 21 10/19/17 20:00 99.5 91 18 136/84 (101) 95 10/19/17 20:00 Room Air 10/19/17 20:00 88 10/19/17 16:03 98.7 90 18 144/80 (101) 93 10/19/17 16:00 84 10/19/17 12:00 98.4 68 17 132/80 (97) 100 10/19/17 12:00 68 Result Diagram: 10/20/17 0848 10/19/17 0629 Imaging Last Impressions Abdomen/Pelvis CT 10/07/172052 Signed Impressions: Service Date/Time: Saturday, October 07, 2017 21:19 - CONCLUSION: 1. No acute abnormality seen. 2. Colonic diverticula. Cruz Guadarrama MD Procedures s/p EGD (10/08). Pt found to have gastric ulcers. Pt underwent epi/clip s/p debridement and wound vac placement (10/13) A/P Problem List: (1) Acute blood loss anemia ICD Codes: D62 - Acute posthemorrhagic anemia Status: Acute Plan: 1. acute gib. acute blood loss anemia/symptomatic. pt was using goody powder. egd 10/08 gastric ulcers. visible vessel...epi/clip per RN. egd 10/16 active bleeding. epi injection. unable to control IR 10/16: empiric embolization was performed of the GDA. s/p 12 units prbc 2. acute/ckd 4 3. sleep apnea 4. chronic leg ulceration. infected. s/p debridement.wound vac 5. htn continue to monitor h/h. stable over past several days diet advancement per GI ppi bid transfer to med/surg PT daily. will need snf at [place] continue nightly bipap. cont wound vac care and abx for infected leg ulceration. If stable h/h and tolerating food will likely d/c to snf in next 24 to 48hrs. If he has symptomatic anemia when up with PT then consider more prbc before snf (2) GI bleed ICD Codes: K92.2 - Gastrointestinal hemorrhage, unspecified Status: Acute Plan: - see above (3) Acute worsening of stage 4 chronic kidney disease ICD Codes: N28.9 - Disorder of kidney and ureter, unspecified; N18.4 - Chronic kidney disease, stage 4 (severe) Status: Acute Plan: - a/ckd 4 - comgmt with Nephrology, Dr. Block - Cr/GFR continue to improve - (4) Skin ulcer ICD Codes: L98.499 - Non-pressure chronic ulcer of skin of other sites with unspecified severity Status: Chronic Plan: - case d/w Dr. Zuri Loya (10/10). - santyl - wound culture (10/10) --> E coli and Proteus mirabilis resistant to Levaquin - will DC ciprofloxin/doxycycline - Rocephin - Vascular Surgery Consult requested. Case d/w Dr. Victor. He will consult. - obtain segmental Doppler study reviewed conclusion: Normal CURT and TBI on the right. Abnormal TBI on the left. Multiple segments that could not be occluded in the left lower extremity possibly representing severely calcified vessels. CURT could not be calculated. As the patient is symptomatic in the left lower extremity, CTA abdomen with run off recommended. - Can NOT obtain CTA with runoff at this time d/t ARF - see above (5) Sleep apnea ICD Codes: G47.30 - Sleep apnea, unspecified Status: Chronic Plan: - Pt will need re-evaluation with polysomnogram outpt. (6) HTN (hypertension) ICD Codes: I10 - Essential (primary) hypertension Status: Chronic Plan: - metoprolol - observe Problem Qualifiers (1) GI bleed: Qualified Codes: K92.2 - Gastrointestinal hemorrhage, unspecified (2) Skin ulcer: Qualified Codes: L98.492 - Non-pressure chronic ulcer of skin of other sites with fat layer exposed (3) Sleep apnea: Qualified Codes: G47.30 - Sleep apnea, unspecified (4) HTN (hypertension): Qualified Codes: I10 - Essential (primary) hypertension Francisco J Umanzor MD October 20, 2017 10:28
--- NOTE | 2017-10-20 12:51 | HHI.GIFU ---
Subjective Remarks Pt resting in bed Very drowsy during my exam Minimally answering questions (Beth Candelaria) Objective Vitals I&O Vital Signs Date Time Temp Pulse Resp B/P (MAP) Pulse Ox O2 Delivery O2 Flow Rate FiO2 10/20/17 12:21 98.7 72 18 143/79 (100) 100 10/20/17 12:08 75 10/20/17 11:40 Nasal Cannula 2.00 10/20/17 08:45 Nasal Cannula 2.00 10/20/17 08:03 98.8 85 18 143/76 (98) 97 10/20/17 08:00 86 10/20/17 04:00 87 10/20/17 04:00 98.4 80 20 154/98 (116) 100 10/20/17 00:28 99 35 10/20/17 00:00 85 10/20/17 00:00 98.5 80 21 152/106 (121) 100 10/19/17 20:18 94 21 10/19/17 20:00 99.5 91 18 136/84 (101) 95 10/19/17 20:00 Room Air 10/19/17 20:00 88 10/19/17 16:03 98.7 90 18 144/80 (101) 93 10/19/17 16:00 84 I/O 10/19/17 10/19/17 10/19/17 10/20/17 10/20/17 10/20/17 07:00 15:00 23:00 07:00 15:00 23:00 Intake Total 1200 ml 200 ml 800 ml Output Total 840 ml 150 ml 1050 ml Balance 360 ml 50 ml -250 ml Intake Oral 1200 ml 800 ml IV Total 200 ml Output Urine Total 750 ml 150 ml 1050 ml Drainage Total 90 ml # Voids 2 Laboratory Laboratory Tests Test 10/20/17 08:48 White Blood Count 8.9 Red Blood Count 2.61 Hemoglobin 7.6 Hematocrit 23.0 Mean Corpuscular Volume 88.3 Mean Corpuscular Hemoglobin 29.0 Mean Corpuscular Hemoglobin Concent 32.9 Red Cell Distribution Width 16.6 Platelet Count 262 Mean Platelet Volume 8.2 Neutrophils (%) (Auto) 76.9 Lymphocytes (%) (Auto) 11.3 Monocytes (%) (Auto) 6.7 Eosinophils (%) (Auto) 4.3 Basophils (%) (Auto) 0.8 Neutrophils # (Auto) 6.8 Lymphocytes # (Auto) 1.0 Monocytes # (Auto) 0.6 Eosinophils # (Auto) 0.4 Basophils # (Auto) 0.1 CBC Comment DIFF FINAL Differential Comment Date/Time Source Procedure Growth Status 10/10/17 15:45 Wound Leg Gram Stain - Final Complete 10/10/17 15:45 Wound Culture - Final Escherichia Coli Proteus Mirabilis Complete Imaging Last Impressions Chest X-Ray 10/16/17 0600 Signed Impressions: Service Date/Time: Monday, October 16, 2017 03:58 - CONCLUSION: 1. Left lower lobe consolidation. 2. ET and central line tips in good position. Lawrence Raya MD Catheter Placement X-Ray 10/15/17 0000 Signed Impressions: Service Date/Time: Sunday, October 15, 2017 17:46 - CONCLUSION: Uncomplicated line placement as above. Pb Orosco MD Abdomen Arteriogram 10/15/17 0000 Signed Impressions: Service Date/Time: Sunday, October 15, 2017 17:46 - CONCLUSION: 1. Limited anatomic visualization due to severe respiratory motion artifact. 2. Hemoclips are identified in the expected distribution of the GDA. As the patient was reportedly actively bleeding by GI and patient's systolic blood pressure was in the 80s on presentation to the interventional department, empiric embolization was performed of the GDA. Pressures at the termination of the procedure were approximately 110 systolic. Pb Orosco MD Abdomen X-Ray 10/10/17 0000 Signed Impressions: Service Date/Time: Tuesday, October 10, 2017 15:26 - CONCLUSION: 1. Findings of mild small bowel ileus in the lower quadrant. Constantino Hagen MD Abdomen/Pelvis CT 10/07/172052 Signed Impressions: Service Date/Time: Saturday, October 07, 2017 21:19 - CONCLUSION: 1. No acute abnormality seen. 2. Colonic diverticula. Cruz Guadarrama MD Physical Exam HEENT: Normocephalic; atraumatic CHEST: Coarse BS, on 2 L NC CARDIAC: RRR ABDOMEN: obese, soft, nontender,BS active [employer] ENGINEER: Drowsy (Beth Candelaria) Assessment and Plan Plan Assessment: - Anemia with reports of rectal bleeding as per HPI Reports black and maroon colored stools that began yesterday while at a viewing. Last BM was prior to transfer. H/H on admission 4.5/13.8. Denies history of GIB. Has never had EGD or colonoscopy. Of note, has been taking daily Ibuprofen and Aleve for leg pain. Occasional ETOH. - CKD- GFR 16. Hyperkalemia- K+ 5.5 - High risk for GI procedures- history of AAA repair EGD (10/08) --> Gastritis with gastric ulcer with visible vessel- Endoclipping with epi injection. EGD (10/15) for significant drop in H/H overnight --> Esophagus normal. Stomach with residual food, active bleeding most likely either the antrum or pyloric channel injection of epinephrine. Angiogram with embolization (10/15) --> Limited anatomic visualization due to severe respiratory motion artifact. Hemoclips are identified in the expected distribution of the GDA. As the patient was reportedly actively bleeding by GI and patient's systolic blood pressure was in the 80s on presentation to the interventional department , empiric embolization was performed of the GDA. Pressures at the termination of the procedure were approximately 110 systolic. (10/20) H/H has remained fairly stable overnight. Currently 7.6/23. No BMs overnight or today. Remains on Protonix BID. States tolerating regular diet. Plan: Monitor H/H Transfuse as needed If rebleeds may need GS consult NELLIE Protonix GI will sign off, please reconsult as needed Have pt follow up with GI after DC Pt has been seen and examined by myself and Dr. Carrillo and this note is written on his behalf (Beth Candelaria) Plan Patient was seen and examined, agree with above note, doing well at this point he was advised to have better control of his diet and lose weight, we will sign off at this point since he is not actively bleeding (Nikko Carrillo MD) Beth Candelaria October 20, 2017 12:51 Nikko Carrillo MD October 20, 2017 20:25
[2017-10-20] MEDS: cefTRIAXone INJ 1,000 MG in SODIUM CHLORIDE 0.9% INJ 100 ML IV SCH (17:32)
[2017-10-21] VITALS (8 sets, daily range): BP systolic 136–166; BP diastolic 58–93; PULSE 70–100; RESP 18–20; TEMP 97.5–98.8; O2SAT 94–100
[2017-10-21] MEDS: ACETAMINOPHEN/HYDROcodone 325 MG/10 MG TAB PO PRN ×4 (03:47→22:19)
[2017-10-21] MEDS: hydrALAZINE HCL 100 MG TAB PO SCH ×3 (06:24→20:36)
[2017-10-21] MEDS: CHLORHEXIDINE 0.12% (ORAL KIT) 15 ML CUP MT SCH ×2 (07:37→20:00)
[2017-10-21 07:59] LABS: AUTOMATED NEUTROPHIL # 5.8 TH/MM3 (1.8-7.7); BASOPHIL % 0.5 % (0.0-2.0); EOSINOPHIL # 0.3 TH/MM3 (0-0.4); EOSINOPHIL % 3.9 % (0.0-4.0); HEMATOCRIT 23.1 % (39.0-51.0); HEMOGLOBIN 7.8 GM/DL (13.0-17.0); LYMPH % 12.6 % (9.0-44.0); MEAN CELL VOLUME 89.2 FL (80.0-100.0); MEAN CORPUSCULAR HEMOGLOBIN 29.9 PG (27.0-34.0); MEAN CORPUSCULAR HGB CONC 33.5 % (32.0-36.0); MEAN PLATELET VOLUME 8.5 FL (7.0-11.0); MONO % 7.5 % (0.0-8.0); MONOCYTE # 0.6 TH/MM3 (0-0.9); NEUT % 75.5 % (16.0-70.0); PLATELET COUNT 250 TH/MM3 (150-450); RED BLOOD COUNT 2.59 MIL/MM3 (4.50-5.90); RED CELL DISTRIBUTION WIDTH 17.4 % (11.6-17.2); WHITE BLOOD COUNT 7.7 TH/MM3 (4.0-11.0)
[2017-10-21] MEDS: COLLAGENASE OINT 30 GM TUBE TOPICAL SCH (08:58)
[2017-10-21] MEDS: DOCUSATE SODIUM 50 MG/SENNA 8.6 MG TAB PO SCH ×2 (09:00→20:36)
[2017-10-21] MEDS: PANTOPRAZOLE SODIUM 40 MG VIAL IV PUSH SCH ×2 (09:03→20:36)
[2017-10-21] MEDS: NIFEdipine 60 MG SUSTAINED RELEASE TAB PO SCH ×2 (09:03→20:36)
[2017-10-21] MEDS: METOPROLOL TARTRATE 50 MG TAB PO SCH ×2 (09:03→20:36)
[2017-10-21] MEDS: ISOSORBIDE DINITRATE 20 MG TAB PO SCH ×3 (09:03→17:29)
[2017-10-21] MEDS: CHOLECALCIFEROL (VIT D3) 5000 UNIT CAP PO SCH (09:03)
[2017-10-21] MEDS: SODIUM CHLORIDE 0.9% FLUSH 10 ML FLUSH IV FLUSH SCH ×2 (09:04→20:37)
--- NOTE | 2017-10-21 11:18 | HHI.NPPN ---
Subjective General Problems: Anemia, Edema, Hypertension Renal Failure: Chronic, Stage IV History of Present Illness 46 year old male with a past medical history of chronic kidney disease stage 4, Hypertension, sleep apnea, chronic left lower extremity leg ulcer, obesity, and CHF. Patient presented to the ED with abdominal pain and maroon stools. He was found to have a hemoglobin of 4.5. His blood pressure is elevated now but per records when EMS arrived he was found to be hypotensive with a SBP in the 80 's. Nephrology is consulted for acute on chronic renal failure with a creatinine of 4.72 and potassium of 5.5. His baseline creatinine is at 2.5 to 3.0 and his milieu therapist is Dr. Florez. Additional Remarks Resting comfortably with no complaints. (Zehra Dela Cruz) Review of Systems General Constitutional: Fatigue (Zehra Dela Cruz) Respiratory Respiratory Remarks Denies SOB (Zehra Dela Cruz) Cardiovascular Cardiac Remarks Denies chest pain (Zehra Dela Cruz) Gastrointestinal GI Remarks denies abdominal pain (Zehra Dela Cruz) Objective Data Data Vital Signs Date Time Temp Pulse Resp B/P (MAP) Pulse Ox O2 Delivery O2 Flow Rate FiO2 10/21/17 08:00 Room Air 10/21/17 07:40 98.5 85 18 159/93 (115) 97 10/21/17 04:00 80 10/21/17 04:00 97.5 82 18 150/62 (91) 94 10/21/17 00:00 80 10/21/17 00:00 98.8 84 20 136/58 (84) 96 10/20/17 20:00 Nasal Cannula 2.00 10/20/17 20:00 98.6 88 18 158/74 (102) 96 10/20/17 20:00 86 10/20/17 18:05 Nasal Cannula 2.00 10/20/17 16:03 98.6 85 18 126/73 (90) 100 10/20/17 16:02 84 10/20/17 14:44 21 10/20/17 14:17 Room Air 10/20/17 12:21 98.7 72 18 143/79 (100) 100 10/20/17 12:08 75 10/20/17 11:40 Nasal Cannula 2.00 (Zehra Dela Cruz) -: 10/21/17 0734 10/19/17 0629 Imaging Last Impressions Chest X-Ray 10/16/17 0600 Signed Impressions: Service Date/Time: Monday, October 16, 2017 03:58 - CONCLUSION: 1. Left lower lobe consolidation. 2. ET and central line tips in good position. Lawrence Raya MD Catheter Placement X-Ray 10/15/17 0000 Signed Impressions: Service Date/Time: Sunday, October 15, 2017 17:46 - CONCLUSION: Uncomplicated line placement as above. Pb Orosco MD Abdomen Arteriogram 10/15/17 0000 Signed Impressions: Service Date/Time: Sunday, October 15, 2017 17:46 - CONCLUSION: 1. Limited anatomic visualization due to severe respiratory motion artifact. 2. Hemoclips are identified in the expected distribution of the GDA. As the patient was reportedly actively bleeding by GI and patient's systolic blood pressure was in the 80s on presentation to the interventional department, empiric embolization was performed of the GDA. Pressures at the termination of the procedure were approximately 110 systolic. Pb Orosco MD Abdomen X-Ray 10/10/17 0000 Signed Impressions: Service Date/Time: Tuesday, October 10, 2017 15:26 - CONCLUSION: 1. Findings of mild small bowel ileus in the lower quadrant. Constantino Hagen MD Abdomen/Pelvis CT 10/07/172052 Signed Impressions: Service Date/Time: Saturday, October 07, 2017 21:19 - CONCLUSION: 1. No acute abnormality seen. 2. Colonic diverticula. Curz Guadarrama MD Tubes & Lines: Vas-Cath Tubes & Lines Comment right IJ (Zehra Dela Cruz) Physical Exam General Appearance: Well Nourished, No Acute Distress, Comfortable, Obese (Zehra Dela Cruz) Throat Throat Exam: Oral Mucosa [place] & Moist (Zehra Dela CrzuP) Neck Neck Exam: Neck Supple (Zehra Dela CruzP) Pulmonary Resp Exam: Breath Sounds Equal, No Distress, Decreased Bases, Diminished Breath Sounds (Zehra Dela CruzP) Cardiology CV Exam: Regular, Normal Sinus Rhythm (Zehra Dela Cruz) Gastrointestinal/Abdomen GI Exam: Soft, Non-Tender, Bowel Sounds Present GI Remarks large (Zehra Dela Cruz) Integumentary Skin Exam: Clear, Warm Skin Remarks wound vac left foot (Zehra Dela Cruz) Extremeties Extremities Exam: Trace Edema (left lower leg with dressing.) (Zehra Dela Cruz) Neurologic Neuro Exam: Alert, Awake, Oriented (Zehra Dela Cruz) Psychiatric Psych Exam: Appropriate Responses (Zehra Dela Cruz) Assessment/Plan Problem List: (1) Acute worsening of stage 4 chronic kidney disease ICD Codes: N28.9 - Disorder of kidney and ureter, unspecified; N18.4 - Chronic kidney disease, stage 4 (severe) Status: Acute Plan: Acute kidney injury with admission creatinine of 4.72 and potassium of 5.5 from most likely hypotension with blood loss and NSAID use. Chronic kidney disease stage 4 from most likely uncontrolled hypertension. His baseline creatinine is at 2.5 to 3.0 and his milieu therapist is Dr. Florez. CT of abdomen is noted to have kidney of normal size and shape. There is no mass, stone or hydronephrosis. GI bleed - urgent embolization with IR yesterday on 10/[address] Plan Creatinine has been stable recheck in AM UOP maintained with 2.6 L UOP/24 hours. Follow renal panel periodically. Avoid Nephrotoxins. Ok to remove vas cath (2) Sleep apnea ICD Codes: G47.30 - Sleep apnea, unspecified Status: Chronic (3) HTN (hypertension) ICD Codes: I10 - Essential (primary) hypertension Status: Chronic Plan: Will monitor (4) Skin ulcer ICD Codes: L98.499 - Non-pressure chronic ulcer of skin of other sites with unspecified severity Status: Chronic Plan: Dressing on Wound care has been consulted (5) Acute blood loss anemia ICD Codes: D62 - Acute posthemorrhagic anemia Status: Acute Plan: On Protonix (Zehra Dela Cruz) Problem List: (1) Acute worsening of stage 4 chronic kidney disease ICD Codes: N28.9 - Disorder of kidney and ureter, unspecified; N18.4 - Chronic kidney disease, stage 4 (severe) Status: Acute Plan: Acute kidney injury with admission creatinine of 4.72 and potassium of 5.5 from most likely hypotension with blood loss and NSAID use. Chronic kidney disease stage 4 from most likely uncontrolled hypertension. His baseline creatinine is at 2.5 to 3.0 and his milieu therapist is Dr. Florez. CT of abdomen is noted to have kidney of normal size and shape. There is no mass, stone or hydronephrosis. GI bleed - urgent embolization with IR yesterday on 10/[address] Plan Creatinine has been stable recheck in AM UOP maintained with 2.6 L UOP/24 hours. Follow renal panel periodically. Avoid Nephrotoxins. Ok to remove vas cath. Patient seen and examined, agree with above. Creatinine stable, to D/C Vascath. (2) Sleep apnea ICD Codes: G47.30 - Sleep apnea, unspecified Status: Chronic (3) HTN (hypertension) ICD Codes: I10 - Essential (primary) hypertension Status: Chronic Plan: Will monitor (4) Skin ulcer ICD Codes: L98.499 - Non-pressure chronic ulcer of skin of other sites with unspecified severity Status: Chronic Plan: Dressing on Wound care has been consulted (5) Acute blood loss anemia ICD Codes: D62 - Acute posthemorrhagic anemia Status: Acute Plan: On Protonix (Aden Block MD) Problem Qualifiers (1) Sleep apnea: Qualified Codes: G47.30 - Sleep apnea, unspecified (2) HTN (hypertension): Qualified Codes: I10 - Essential (primary) hypertension (3) Skin ulcer: Qualified Codes: L98.492 - Non-pressure chronic ulcer of skin of other sites with fat layer exposed Zehra Dela Cruz October 21, 2017 11:18 Aden Block MD October 24, 2017 18:41
--- NOTE | 2017-10-21 12:12 | HHI.PR ---
Subjective Remarks no bleeding. oozing right groin at punture site. clear Objective Vitals heart reg lung cta abd s/nt ext no obvious infection right groin Vital Signs Date Time Temp Pulse Resp B/P (MAP) Pulse Ox O2 Delivery O2 Flow Rate FiO2 10/21/17 08:00 Room Air 10/21/17 08:00 79 10/21/17 07:40 98.5 85 18 159/93 (115) 97 10/21/17 04:00 80 10/21/17 04:00 97.5 82 18 150/62 (91) 94 10/21/17 00:00 80 10/21/17 00:00 98.8 84 20 136/58 (84) 96 10/20/17 20:00 Nasal Cannula 2.00 10/20/17 20:00 98.6 88 18 158/74 (102) 96 10/20/17 20:00 86 10/20/17 18:05 Nasal Cannula 2.00 10/20/17 16:03 98.6 85 18 126/73 (90) 100 10/20/17 16:02 84 10/20/17 14:44 21 10/20/17 14:17 Room Air 10/20/17 12:21 98.7 72 18 143/79 (100) 100 Result Diagram: 10/21/17 0734 10/19/1729 Imaging Last Impressions Abdomen/Pelvis CT 10/07/172052 Signed Impressions: Service Date/Time: Saturday, October 07, 2017 21:19 - CONCLUSION: 1. No acute abnormality seen. 2. Colonic diverticula. Cruz Guadarrama MD Procedures s/p EGD (10/08). Pt found to have gastric ulcers. Pt underwent epi/clip s/p debridement and wound vac placement (10/13) A/P Problem List: (1) Acute blood loss anemia ICD Codes: D62 - Acute posthemorrhagic anemia Status: Acute Plan: 1. acute gib. acute blood loss anemia/symptomatic. pt was using goody powder. egd 10/08 gastric ulcers. visible vessel...epi/clip per RN. egd 10/16 active bleeding. epi injection. unable to control IR 10/16: empiric embolization was performed of the GDA. s/p 12 units prbc 2. acute/ckd 4 3. sleep apnea 4. chronic leg ulceration. infected. s/p debridement.wound vac 5. htn continue to monitor h/h. stable over past several days diet advancement per GI ppi bid PT daily. will need snf at [place] continue nightly bipap. cont wound vac care and abx for infected leg ulceration. so far pt able to tolerate current hgb with activity. if no bleeding and stable h/h then d/c to snf this weekend (2) GI bleed ICD Codes: K92.2 - Gastrointestinal hemorrhage, unspecified Status: Acute Plan: - see above (3) Acute worsening of stage 4 chronic kidney disease ICD Codes: N28.9 - Disorder of kidney and ureter, unspecified; N18.4 - Chronic kidney disease, stage 4 (severe) Status: Acute Plan: - a/ckd 4 - comgmt with Nephrology, Dr. Block - Cr/GFR continue to improve - (4) Skin ulcer ICD Codes: L98.499 - Non-pressure chronic ulcer of skin of other sites with unspecified severity Status: Chronic Plan: - case d/w Dr. Zuri Loya (10/10). - santyl - wound culture (10/10) --> E coli and Proteus mirabilis resistant to Levaquin - will DC ciprofloxin/doxycycline - Rocephin - Vascular Surgery Consult requested. Case d/w Dr. Victor. He will consult. - obtain segmental Doppler study reviewed conclusion: Normal CURT and TBI on the right. Abnormal TBI on the left. Multiple segments that could not be occluded in the left lower extremity possibly representing severely calcified vessels. CURT could not be calculated. As the patient is symptomatic in the left lower extremity, CTA abdomen with run off recommended. - Can NOT obtain CTA with runoff at this time d/t ARF - see above (5) Sleep apnea ICD Codes: G47.30 - Sleep apnea, unspecified Status: Chronic Plan: - Pt will need re-evaluation with polysomnogram outpt. (6) HTN (hypertension) ICD Codes: I10 - Essential (primary) hypertension Status: Chronic Plan: - metoprolol - observe Problem Qualifiers (1) GI bleed: Qualified Codes: K92.2 - Gastrointestinal hemorrhage, unspecified (2) Skin ulcer: Qualified Codes: L98.492 - Non-pressure chronic ulcer of skin of other sites with fat layer exposed (3) Sleep apnea: Qualified Codes: G47.30 - Sleep apnea, unspecified (4) HTN (hypertension): Qualified Codes: I10 - Essential (primary) hypertension Francisco J Umanzor MD October 21, 2017 12:12
[2017-10-21] MEDS: ONDANSETRON HCL 4 MG/2 ML VIAL IVP PRN (14:13)
[2017-10-21] MEDS: MORPHINE SULFATE 2 MG/ML SYRINGE IV PRN (14:13)
--- NOTE | 2017-10-21 15:02 | PD.WCN.NOT ---
Wound Consult Description: Wound VAC dressing removal to left lower extremity. Communicated with: Patient KYLAH Levine Message left for Dr Loya Recommendation: DAILY and PRN for saturation or dislodgement: Premedicate patient prior to dressing change on left lower extremity. Remove dressing of NAKIA wrap, rolled gauze, and Optifoam AG. Gently place gauze over wound and saturate with NS. Astor periwound with Cavilon skin barrier film. Apply Optifoam AG over wound. Secure with rolled gauze. May further secure with NAKIA wrap for further protection (not for compression) Additional Information: Patient seen on for removal of wound VAC dressing to left lower extremity and evaluation of wound. Patient was premedicated prior to wound VAC removal. Patient tolerated wound VAC dressing removal POORLY. All black granufoam was removed to reveal a shallow wound bed of ~95% beefy red vascular granulation tissue and ~5% islands of epithelialization with epithelializing wound margins and macerated periwound. There is scant sanguinous drainage noted with wound VAC removal. There is no odor noted at this time. Wound depth at its deepest is ~0.5cm noted to distal lateral portion of wound bed. Wound was cleansed with NS and gauze. Periwound was skin prepped using Cavilon skin barrier film. Optifoam AG was obtained and placed over the wound bed and secured with rolled gauze, tape, and further secured with an NAKIA wrap. Recommend to change dressing daily and PRN for saturation or dislodgement. Patient tolerated Optifoam dressing application fairly and thanked Renea and technical writer when leaving patient room. Dr Loya was called, message left, for notification of wound VAC removal and recommendations of new dressing due to epithelialization and shallow wound depth. Yamile Perez [facility] October 21, 2017 15:02
[2017-10-21] MEDS: cefTRIAXone INJ 1,000 MG in SODIUM CHLORIDE 0.9% INJ 100 ML IV SCH (17:29)
--- NOTE | 2017-10-21 19:35 | HHI.PR ---
Subjective Remarks Patient seen bedside nurse present. Patient states he is in extreme pain to left lower extremity. Objective Vital Signs Date Time Temp Pulse Resp B/P (MAP) Pulse Ox O2 Delivery O2 Flow Rate FiO2 10/21/17 17:55 99 21 10/21/17 16:00 70 10/21/17 16:00 97.5 100 19 148/84 (105) 100 10/21/17 12:23 98.8 73 20 147/80 (102) 98 10/21/17 08:00 Room Air 10/21/17 08:00 79 10/21/17 07:40 98.5 85 18 159/93 (115) 97 10/21/17 04:00 80 10/21/17 04:00 97.5 82 18 150/62 (91) 94 10/21/17 00:00 80 10/21/17 00:00 98.8 84 20 136/58 (84) 96 10/20/17 20:00 Nasal Cannula 2.00 10/20/17 20:00 98.6 88 18 158/74 (102) 96 10/20/17 20:00 86 I/O 10/20/17 10/20/17 10/20/17 10/21/17 10/21/17 10/21/17 06:59 14:59 22:59 06:59 14:59 22:59 Intake Total 800 ml 480 ml 420 ml Output Total 1050 ml 1000 ml 1600 ml Balance -250 ml -520 ml -1180 ml Intake Oral 800 ml 480 ml 420 ml Output Urine Total 1050 ml 1000 ml 1600 ml # Bowel Movements 0 0 Result Diagram: 10/21/17 0734 10/19/17 0629 Imaging Last Impressions Chest X-Ray 10/16/17 0600 Signed Impressions: Service Date/Time: Monday, October 16, 2017 03:58 - CONCLUSION: 1. Left lower lobe consolidation. 2. ET and central line tips in good position. Lawrence Raya MD Catheter Placement X-Ray 10/15/17 0000 Signed Impressions: Service Date/Time: Sunday, October 15, 2017 17:46 - CONCLUSION: Uncomplicated line placement as above. Pb Orosco MD Abdomen Arteriogram 10/15/17 0000 Signed Impressions: Service Date/Time: Sunday, October 15, 2017 17:46 - CONCLUSION: 1. Limited anatomic visualization due to severe respiratory motion artifact. 2. Hemoclips are identified in the expected distribution of the GDA. As the patient was reportedly actively bleeding by GI and patient's systolic blood pressure was in the 80s on presentation to the interventional department, empiric embolization was performed of the GDA. Pressures at the termination of the procedure were approximately 110 systolic. Pb Orosco MD Abdomen X-Ray 10/10/17 0000 Signed Impressions: Service Date/Time: Tuesday, October 10, 2017 15:26 - CONCLUSION: 1. Findings of mild small bowel ileus in the lower quadrant. Constantino Hagen MD Abdomen/Pelvis CT 10/07/172052 Signed Impressions: Service Date/Time: Saturday, October 07, 2017 21:19 - CONCLUSION: 1. No acute abnormality seen. 2. Colonic diverticula. Cruz Guadarrama MD Other Results Microbiology Date/Time Source Procedure Growth Status 10/10/17 15:45 Wound Leg Gram Stain - Final Complete 10/10/17 15:45 Wound Culture - Final Escherichia Coli Proteus Mirabilis Complete Objective Remarks Lower extremity physical exam: Vascular: Dorsalis pedis diminished, posterior tibial diminished. Capillary refill time within normal limits to digits 5 bilateral foot. Edema present left lower extremity Neuro: Gross sensation intact to bilateral lower extremity. Pinpoint sensation intact. No hyperalgesia noted to bilateral lower extremity Dermatology: Normal temperature and turgor to bilateral lower extremity. Left posterior calf ulceration encompassing 50% of calf with granular base and rolled epithelialized borders noted. No signs of infection noted. Musculoskeletal: Tender to palpation to left posterior calf. Medications and IVs Current Medications Medications (Trade) Dose Ordered Sig/Stan Route Start Time Stop Time Status Last Admin (Isordil) 20 mg TID PO 10/08/17 09:00 10/21/17 17:29 (NS Flush) 2 ml UNSCH PRN IV FLUSH 10/07/17 23:00 10/11/17 06:14 (NS Flush) 2 ml BID IV FLUSH 10/08/17 09:00 10/21/17 09:04 (Tylenol) 650 mg Q4H PRN PO 10/07/17 23:00 10/17/17 14:26 (Zofran Inj) 4 mg Q6H PRN IVP 10/07/17 23:00 10/21/17 14:13 (Narcan Inj) 0.4 mg UNSCH PRN IV PUSH 10/07/17 23:00 (Alyssa-Colace) 1 tab BID PO 10/08/17 09:00 10/20/17 08:26 (Milk Of Magnesia Liq) 30 ml Q12H PRN PO 10/07/17 23:00 (Senokot) 17.2 mg Q12H PRN PO 10/07/17 23:00 (Dulcolax Supp) 10 mg DAILY PRN RECTAL 10/07/17 23:00 (Lactulose Liq) 30 ml DAILY PRN PO 10/07/17 23:00 Miscellaneous Information Patient in critical care unit? Ass... [id number] .XX 10/08/17 00:30 (Morphine Inj) 2 mg Q2H PRN IV 10/08/17 00:45 10/21/17 14:13 (Catapres) 0.1 mg Q4H PRN PO 10/08/17 09:00 10/15/17 00:00 (Benadryl Inj) 25 mg Q6H PRN IV 10/08/17 20:00 10/18/17 09:28 (Lopressor) 50 mg Q12HR PO 10/10/17 21:00 10/21/17 09:03 (Vitamin D3) 5,000 units DAILY PO 10/11/17 09:00 10/21/17 09:03 (Santyl Oint) 1 applic DAILY TOPICAL 10/11/17 16:00 10/19/17 08:34 Ceftriaxone Sodium 1000 mg/ Sodium Chloride 100 ml @ 200 mls/hr Q24H IV 10/12/17 17:00 10/21/17 17:29 (Apresoline) 100 mg Q8HR PO 10/14/17 14:00 10/21/17 12:56 (Procardia Xl) 60 mg Q12HR PO 10/14/17 17:45 10/21/17 09:03 (Protonix Inj) 40 mg Q12HR IV PUSH 10/15/17 12:45 10/21/17 09:03 (NS Flush) UNSCH PRN IV FLUSH 10/15/17 18:45 (Heparin Inj) UNSCH PRN IV FLUSH 10/15/17 18:45 (Peridex 0.12% Liq) 15 ml BID@08,20 MT 10/15/17 20:00 10/16/17 08:55 (Duoneb Neb) 1 ampule Q2HR NEB PRN INH 10/15/17 19:15 (Moose 10-325 Mg) 1 tab Q4H PRN PO 10/20/17 11:00 10/21/17 17:39 Assessment and Plan Assessment and Plan 46-year-old male posterior calf ulceration status post debridement and irrigation VAC placement performed 10/[address] Loya Patient examined evaluated with all questions answered Discussed with patient to posterior calf ulceration Patient states he is in a lot of pain and just wants people to stop touching his dressing At this time he is refusing graft, but states he will discussed with Contact physician if patient is interested in graft placement as will aid in healing Patient okay to be DC'd per podiatry with appropriate wound care follow-up as placed in discharge orders Teodora Zaidi DPM October 21, 2017 19:35
[2017-10-22] VITALS (9 sets, daily range): BP systolic 142–181; BP diastolic 70–99; PULSE 66–88; RESP 17–20; TEMP 97.8–98.8; O2SAT 93–98
[2017-10-22] MEDS: ACETAMINOPHEN/HYDROcodone 325 MG/10 MG TAB PO PRN ×2 (04:56→19:48)
[2017-10-22] MEDS: hydrALAZINE HCL 100 MG TAB PO SCH ×3 (04:56→21:17)
[2017-10-22] MEDS: CHLORHEXIDINE 0.12% (ORAL KIT) 15 ML CUP MT SCH ×2 (08:00→19:29)
[2017-10-22] MEDS: COLLAGENASE OINT 30 GM TUBE TOPICAL SCH (09:00)
[2017-10-22] MEDS: DOCUSATE SODIUM 50 MG/SENNA 8.6 MG TAB PO SCH ×2 (09:00→19:49)
[2017-10-22 09:20] LABS: BICARBONATE 29.2 MEQ/L (21.0-32.0); CALCIUM 8.3 MG/DL (8.5-10.1); CREATININE 2.76 MG/DL (0.60-1.30)
[2017-10-22] MEDS: ISOSORBIDE DINITRATE 20 MG TAB PO SCH ×3 (09:45→17:29)
[2017-10-22] MEDS: NIFEdipine 60 MG SUSTAINED RELEASE TAB PO SCH ×2 (09:45→19:49)
[2017-10-22] MEDS: CHOLECALCIFEROL (VIT D3) 5000 UNIT CAP PO SCH (09:46)
[2017-10-22] MEDS: METOPROLOL TARTRATE 50 MG TAB PO SCH ×2 (09:46→19:49)
[2017-10-22] MEDS: PANTOPRAZOLE SODIUM 40 MG VIAL IV PUSH SCH ×2 (09:47→19:49)
[2017-10-22] MEDS: SODIUM CHLORIDE 0.9% FLUSH 10 ML FLUSH IV FLUSH SCH ×2 (09:54→19:48)
--- NOTE | 2017-10-22 10:33 | HHI.PR ---
Subjective Remarks no complaints Objective Vitals heart reg lung cta abd s/nt ext no pitting Vital Signs Date Time Temp Pulse Resp B/P (MAP) Pulse Ox O2 Delivery O2 Flow Rate FiO2 10/22/17 08:00 98.8 79 20 94 10/22/17 04:00 97.8 75 17 142/70 (94) 93 10/22/17 04:00 80 10/22/17 00:00 98.8 77 19 154/82 (106) 94 10/22/17 00:00 67 10/21/17 20:00 78 10/21/17 20:00 Room Air 10/21/17 20:00 98.6 80 18 166/83 (110) 94 10/21/17 17:55 99 21 10/21/17 16:00 70 10/21/17 16:00 97.5 100 19 148/84 (105) 100 10/21/17 12:23 98.8 73 20 147/80 (102) 98 Result Diagram: 10/21/17 0734 10/22/17 0746 Imaging Last Impressions Abdomen/Pelvis CT 10/07/172052 Signed Impressions: Service Date/Time: Saturday, October 07, 2017 21:19 - CONCLUSION: 1. No acute abnormality seen. 2. Colonic diverticula. Cruz Guadarrama MD Procedures s/p EGD (10/08). Pt found to have gastric ulcers. Pt underwent epi/clip s/p debridement and wound vac placement (10/13) A/P Problem List: (1) Acute blood loss anemia ICD Codes: D62 - Acute posthemorrhagic anemia Status: Acute Plan: 1. acute gib. acute blood loss anemia/symptomatic. pt was using goody powder. egd 10/08 gastric ulcers. visible vessel...epi/clip per RN. egd 10/16 active bleeding. epi injection. unable to control IR 10/16: empiric embolization was performed of the GDA. s/p 12 units prbc 2. acute/ckd 4 3. sleep apnea 4. chronic leg ulceration. infected. s/p debridement.wound vac 5. htn continue to monitor h/h. stable over past several days diet advancement per GI ppi bid PT daily. will need snf at dc continue nightly bipap. cont wound vac care and abx for infected leg ulceration. s/p 10d abx. will stop so far pt able to tolerate current hgb with activity. if no bleeding and stable h/h then d/c to snf in next 24hrs. (2) GI bleed ICD Codes: K92.2 - Gastrointestinal hemorrhage, unspecified Status: Acute Plan: - see above (3) Acute worsening of stage 4 chronic kidney disease ICD Codes: N28.9 - Disorder of kidney and ureter, unspecified; N18.4 - Chronic kidney disease, stage 4 (severe) Status: Acute Plan: - a/ckd 4 - comgmt with Nephrology, Dr. Block - Cr/GFR continue to improve - (4) Skin ulcer ICD Codes: L98.499 - Non-pressure chronic ulcer of skin of other sites with unspecified severity Status: Chronic Plan: - case d/w Dr. Zuri Loya (10/10). - santyl - wound culture (10/10) --> E coli and Proteus mirabilis resistant to Levaquin - will DC ciprofloxin/doxycycline - Rocephin - Vascular Surgery Consult requested. Case d/w Dr. Victor. He will consult. - obtain segmental Doppler study reviewed conclusion: Normal CURT and TBI on the right. Abnormal TBI on the left. Multiple segments that could not be occluded in the left lower extremity possibly representing severely calcified vessels. CURT could not be calculated. As the patient is symptomatic in the left lower extremity, CTA abdomen with run off recommended. - Can NOT obtain CTA with runoff at this time d/t ARF - see above (5) Sleep apnea ICD Codes: G47.30 - Sleep apnea, unspecified Status: Chronic Plan: - Pt will need re-evaluation with polysomnogram outpt. (6) HTN (hypertension) ICD Codes: I10 - Essential (primary) hypertension Status: Chronic Plan: - metoprolol - observe Problem Qualifiers (1) GI bleed: Qualified Codes: K92.2 - Gastrointestinal hemorrhage, unspecified (2) Skin ulcer: Qualified Codes: L98.492 - Non-pressure chronic ulcer of skin of other sites with fat layer exposed (3) Sleep apnea: Qualified Codes: G47.30 - Sleep apnea, unspecified (4) HTN (hypertension): Qualified Codes: I10 - Essential (primary) hypertension Francisco J Umanzor MD October 22, 2017 10:33
[2017-10-22] MEDS: diphenhydrAMINE HCL 50 MG/ML VIAL IV PRN (14:42)
--- NOTE | 2017-10-22 17:24 | HHI.NPPN ---
Subjective General Problems: Anemia, Edema, Hypertension Renal Failure: Chronic, Stage IV History of Present Illness 46 year old male with a past medical history of chronic kidney disease stage 4, Hypertension, sleep apnea, chronic left lower extremity leg ulcer, obesity, and CHF. Patient presented to the ED with abdominal pain and maroon stools. He was found to have a hemoglobin of 4.5. His blood pressure is elevated now but per records when EMS arrived he was found to be hypotensive with a SBP in the 80 's. Nephrology is consulted for acute on chronic renal failure with a creatinine of 4.72 and potassium of 5.5. His baseline creatinine is at 2.5 to 3.0 and his supervisor maintenance and custodians is Dr. Florez. Additional Remarks Resting comfortably with no complaints. Review of Systems General Constitutional: Fatigue Respiratory Respiratory Remarks Denies SOB Cardiovascular Cardiac Remarks Denies chest pain Gastrointestinal GI Remarks denies abdominal pain Objective Data Data Vital Signs Date Time Temp Pulse Resp B/P (MAP) Pulse Ox O2 Delivery O2 Flow Rate FiO2 10/22/17 16:00 75 10/22/17 12:41 97 BiPAP 21 10/22/17 12:00 72 10/22/17 08:20 83 10/22/17 08:00 98.8 79 20 177/91 (119) 94 10/22/17 08:00 Nasal Cannula 3.00 10/22/17 04:00 97.8 75 17 142/70 (94) 93 10/22/17 04:00 80 10/22/17 00:00 98.8 77 19 154/82 (106) 94 10/22/17 00:00 67 10/21/17 20:00 78 10/21/17 20:00 Room Air 10/21/17 20:00 98.6 80 18 166/83 (110) 94 10/21/17 17:55 99 21 -: 10/21/17 0734 10/22/17 0746 Tubes & Lines: Vas-Cath Tubes & Lines Comment right IJ Physical Exam General Appearance: Well Nourished, No Acute Distress, Comfortable, Obese Throat Throat Exam: Oral Mucosa [place] & Moist Neck Neck Exam: Neck Supple Pulmonary Resp Exam: Breath Sounds Equal, No Distress, Decreased Bases, Diminished Breath Sounds Cardiology CV Exam: Regular, Normal Sinus Rhythm Gastrointestinal/Abdomen GI Exam: Soft, Non-Tender, Bowel Sounds Present Integumentary Skin Exam: Clear, Warm Extremeties Extremities Exam: Trace Edema (left lower leg with dressing.) Neurologic Neuro Exam: Alert, Awake, Oriented Psychiatric Psych Exam: Appropriate Responses Assessment/Plan Problem List: (1) Acute worsening of stage 4 chronic kidney disease ICD Codes: N28.9 - Disorder of kidney and ureter, unspecified; N18.4 - Chronic kidney disease, stage 4 (severe) Status: Acute Plan: Acute kidney injury with admission creatinine of 4.72 and potassium of 5.5 from most likely hypotension with blood loss and NSAID use. Chronic kidney disease stage 4 from most likely uncontrolled hypertension. His baseline creatinine is at 2.5 to 3.0 and his supervisor maintenance and custodians is Dr. Florez. CT of abdomen is noted to have kidney of normal size and shape. There is no mass, stone or hydronephrosis. GI bleed - urgent embolization with IR yesterday on 10/[address] Plan Creatinine 2.76 encourage fluid intake Follow renal panel periodically. Avoid Nephrotoxins. Ok to remove vas cath (2) Sleep apnea ICD Codes: G47.30 - Sleep apnea, unspecified Status: Chronic (3) HTN (hypertension) ICD Codes: I10 - Essential (primary) hypertension Status: Chronic Plan: Will monitor (4) Skin ulcer ICD Codes: L98.499 - Non-pressure chronic ulcer of skin of other sites with unspecified severity Status: Chronic Plan: Dressing on Wound care has been consulted (5) Acute blood loss anemia ICD Codes: D62 - Acute posthemorrhagic anemia Status: Acute Plan: On Protonix Problem Qualifiers (1) Sleep apnea: Qualified Codes: G47.30 - Sleep apnea, unspecified (2) HTN (hypertension): Qualified Codes: I10 - Essential (primary) hypertension (3) Skin ulcer: Qualified Codes: L98.492 - Non-pressure chronic ulcer of skin of other sites with fat layer exposed Osbaldo Stevens MD October 22, 2017 17:24
[2017-10-23] VITALS (10 sets, daily range): BP systolic 147–189; BP diastolic 79–84; PULSE 67–86; RESP 18–20; TEMP 98–99.2; O2SAT 95–98
[2017-10-23] MEDS: hydrALAZINE HCL 100 MG TAB PO SCH ×4 (05:08→21:11)
[2017-10-23] MEDS: CHLORHEXIDINE 0.12% (ORAL KIT) 15 ML CUP MT SCH ×2 (08:00→18:49)
[2017-10-23] MEDS: DOCUSATE SODIUM 50 MG/SENNA 8.6 MG TAB PO SCH ×2 (09:00→21:00)
[2017-10-23] MEDS: COLLAGENASE OINT 30 GM TUBE TOPICAL SCH (09:00)
[2017-10-23] MEDS: NIFEdipine 60 MG SUSTAINED RELEASE TAB PO SCH ×2 (09:03→21:11)
[2017-10-23] MEDS: PANTOPRAZOLE SODIUM 40 MG VIAL IV PUSH SCH ×2 (09:03→21:11)
[2017-10-23] MEDS: CHOLECALCIFEROL (VIT D3) 5000 UNIT CAP PO SCH (09:03)
[2017-10-23] MEDS: METOPROLOL TARTRATE 50 MG TAB PO SCH ×2 (09:03→21:11)
[2017-10-23] MEDS: SODIUM CHLORIDE 0.9% FLUSH 10 ML FLUSH IV FLUSH SCH ×2 (09:03→21:13)
[2017-10-23] MEDS: ISOSORBIDE DINITRATE 20 MG TAB PO SCH ×3 (09:03→17:39)
--- NOTE | 2017-10-23 10:06 | HHI.PR ---
Subjective Remarks Pt now requesting graft to left leg before d/c Objective Vitals heart reg lung cta abd s/nt ext left leg wound vac Vital Signs Date Time Temp Pulse Resp B/P (MAP) Pulse Ox O2 Delivery O2 Flow Rate FiO2 10/23/17 08:35 96 BiPAP 21 10/23/17 08:00 Room Air 10/23/17 08:00 98.0 79 20 166/82 (110) 96 10/23/17 04:47 96 35 10/23/17 04:00 98.0 76 18 160/83 (108) 98 10/23/17 00:34 96 35 10/23/17 00:08 79 10/23/17 00:00 99.2 80 20 147/83 (104) 98 10/22/17 20:26 97 21 10/22/17 20:00 88 10/22/17 20:00 98.1 88 20 181/99 (126) 98 10/22/17 20:00 Room Air 10/22/17 16:00 75 10/22/17 16:00 98.6 84 20 172/88 (116) 98 10/22/17 12:41 97 BiPAP 21 10/22/17 12:00 72 10/22/17 12:00 98.2 66 20 149/75 (99) 96 Result Diagram: 10/21/17 0734 10/22/17 0746 Imaging Last Impressions Abdomen/Pelvis CT 10/07/172052 Signed Impressions: Service Date/Time: Saturday, October 07, 2017 21:19 - CONCLUSION: 1. No acute abnormality seen. 2. Colonic diverticula. Cruz Guadarrama MD Procedures s/p EGD (10/08). Pt found to have gastric ulcers. Pt underwent epi/clip s/p debridement and wound vac placement (10/13) A/P Problem List: (1) Acute blood loss anemia ICD Codes: D62 - Acute posthemorrhagic anemia Status: Acute Plan: 1. acute gib. acute blood loss anemia/symptomatic. pt was using goody powder. egd 10/08 gastric ulcers. visible vessel...epi/clip per RN. egd 10/16 active bleeding. epi injection. unable to control IR 10/16: empiric embolization was performed of the GDA. s/p 12 units prbc 2. acute/ckd 4 3. sleep apnea 4. chronic leg ulceration. infected. s/p debridement.wound vac 5. htn continue to monitor h/h. stable over past several days tolerating regular solid food currently no evidence of ongoing bleeding transfuse if symptomatic with exertion prn ppi bid PT daily. continue nightly bipap. cont wound vac care . completed iv rocephin.s/p 10d abx. Will hold transfer to snf today as pt and podiatry will now pursue graft over the left leg ulceration. I'm told tentatively for Tuesday. (2) GI bleed ICD Codes: K92.2 - Gastrointestinal hemorrhage, unspecified Status: Acute Plan: - see above (3) Acute worsening of stage 4 chronic kidney disease ICD Codes: N28.9 - Disorder of kidney and ureter, unspecified; N18.4 - Chronic kidney disease, stage 4 (severe) Status: Acute Plan: - a/ckd 4 - comgmt with Nephrology, Dr. Block - Cr/GFR continue to improve - (4) Skin ulcer ICD Codes: L98.499 - Non-pressure chronic ulcer of skin of other sites with unspecified severity Status: Chronic Plan: - case d/w Dr. Zuri Loya (10/10). - santyl - wound culture (10/10) --> E coli and Proteus mirabilis resistant to Levaquin - will DC ciprofloxin/doxycycline - Rocephin - Vascular Surgery Consult requested. Case d/w Dr. Victor. He will consult. - obtain segmental Doppler study reviewed conclusion: Normal CURT and TBI on the right. Abnormal TBI on the left. Multiple segments that could not be occluded in the left lower extremity possibly representing severely calcified vessels. CURT could not be calculated. As the patient is symptomatic in the left lower extremity, CTA abdomen with run off recommended. - Can NOT obtain CTA with runoff at this time d/t ARF - see above (5) Sleep apnea ICD Codes: G47.30 - Sleep apnea, unspecified Status: Chronic Plan: - Pt will need re-evaluation with polysomnogram outpt. (6) HTN (hypertension) ICD Codes: I10 - Essential (primary) hypertension Status: Chronic Plan: - metoprolol - observe Problem Qualifiers (1) GI bleed: Qualified Codes: K92.2 - Gastrointestinal hemorrhage, unspecified (2) Skin ulcer: Qualified Codes: L98.492 - Non-pressure chronic ulcer of skin of other sites with fat layer exposed (3) Sleep apnea: Qualified Codes: G47.30 - Sleep apnea, unspecified (4) HTN (hypertension): Qualified Codes: I10 - Essential (primary) hypertension Francisco J Umanzor MD October 23, 2017 10:06
[2017-10-23 10:43] LABS: AUTOMATED NEUTROPHIL # 4.6 TH/MM3 (1.8-7.7); BASOPHIL % 0.6 % (0.0-2.0); EOSINOPHIL # 0.3 TH/MM3 (0-0.4); EOSINOPHIL % 4.1 % (0.0-4.0); HEMATOCRIT 22.4 % (39.0-51.0); HEMOGLOBIN 7.5 GM/DL (13.0-17.0); LYMPH % 16.8 % (9.0-44.0); LYMPHOCYTE # 1.1 TH/MM3 (1.0-4.8); MEAN CELL VOLUME 89.2 FL (80.0-100.0); MEAN CORPUSCULAR HEMOGLOBIN 29.6 PG (27.0-34.0); MEAN CORPUSCULAR HGB CONC 33.2 % (32.0-36.0); MEAN PLATELET VOLUME 8.6 FL (7.0-11.0); MONO % 8.1 % (0.0-8.0); MONOCYTE # 0.5 TH/MM3 (0-0.9); NEUT % 70.4 % (16.0-70.0); PLATELET COUNT 297 TH/MM3 (150-450); RED BLOOD COUNT 2.52 MIL/MM3 (4.50-5.90); WHITE BLOOD COUNT 6.5 TH/MM3 (4.0-11.0)
[2017-10-23 11:11] LABS: BICARBONATE 28.7 MEQ/L (21.0-32.0); CALCIUM 8.2 MG/DL (8.5-10.1); CREATININE 2.84 MG/DL (0.60-1.30)
[2017-10-23] MEDS: ACETAMINOPHEN/HYDROcodone 325 MG/10 MG TAB PO PRN ×2 (15:53→21:11)
--- NOTE | 2017-10-23 17:03 | HHI.NPPN ---
Subjective General Problems: Anemia, Edema, Hypertension Renal Failure: Chronic, Stage IV History of Present Illness 46 year old male with a past medical history of chronic kidney disease stage 4, Hypertension, sleep apnea, chronic left lower extremity leg ulcer, obesity, and CHF. Patient presented to the ED with abdominal pain and maroon stools. He was found to have a hemoglobin of 4.5. His blood pressure is elevated now but per records when EMS arrived he was found to be hypotensive with a SBP in the 80 's. Nephrology is consulted for acute on chronic renal failure with a creatinine of 4.72 and potassium of 5.5. His baseline creatinine is at 2.5 to 3.0 and his city superintendent is Dr. Florez. Additional Remarks Resting comfortably with no complaints. Review of Systems General Constitutional: Fatigue Respiratory Respiratory Remarks Denies SOB Cardiovascular Cardiac Remarks Denies chest pain Gastrointestinal GI Remarks denies abdominal pain Objective Data Data Vital Signs Date Time Temp Pulse Resp B/P (MAP) Pulse Ox O2 Delivery O2 Flow Rate FiO2 10/23/17 12:00 67 10/23/17 08:35 96 BiPAP 21 10/23/17 08:00 Room Air 10/23/17 08:00 86 10/23/17 08:00 98.0 79 20 166/82 (110) 96 10/23/17 04:47 96 35 10/23/17 04:00 98.0 76 18 160/83 (108) 98 10/23/17 00:34 96 35 10/23/17 00:08 79 10/23/17 00:00 99.2 80 20 147/83 (104) 98 10/22/17 20:26 97 21 10/22/17 20:00 88 10/22/17 20:00 98.1 88 20 181/99 (126) 98 10/22/17 20:00 Room Air -: 10/23/17 0916 10/23/17 0916 Tubes & Lines: Vas-Cath Tubes & Lines Comment right IJ Physical Exam General Appearance: Well Nourished, No Acute Distress, Comfortable, Obese Throat Throat Exam: Oral Mucosa [place] & Moist Neck Neck Exam: Neck Supple Pulmonary Resp Exam: Breath Sounds Equal, No Distress, Decreased Bases, Diminished Breath Sounds Cardiology CV Exam: Regular, Normal Sinus Rhythm Gastrointestinal/Abdomen GI Exam: Soft, Non-Tender, Bowel Sounds Present Integumentary Skin Exam: Clear, Warm Extremeties Extremities Exam: Trace Edema (left lower leg with dressing.) Neurologic Neuro Exam: Alert, Awake, Oriented Psychiatric Psych Exam: Appropriate Responses Assessment/Plan Problem List: (1) Acute worsening of stage 4 chronic kidney disease ICD Codes: N28.9 - Disorder of kidney and ureter, unspecified; N18.4 - Chronic kidney disease, stage 4 (severe) Status: Acute Plan: Acute kidney injury with admission creatinine of 4.72 and potassium of 5.5 from most likely hypotension with blood loss and NSAID use. Chronic kidney disease stage 4 from most likely uncontrolled hypertension. His baseline creatinine is at 2.5 to 3.0 and his city superintendent is Dr. Florez. CT of abdomen is noted to have kidney of normal size and shape. There is no mass, stone or hydronephrosis. GI bleed - urgent embolization with IR yesterday on 10/[address] Plan Creatinine 2.8 encourage fluid intake Follow renal panel periodically. Avoid Nephrotoxins. Dr. Block performed (2) Sleep apnea ICD Codes: G47.30 - Sleep apnea, unspecified Status: Chronic (3) HTN (hypertension) ICD Codes: I10 - Essential (primary) hypertension Status: Chronic Plan: Will monitor (4) Skin ulcer ICD Codes: L98.499 - Non-pressure chronic ulcer of skin of other sites with unspecified severity Status: Chronic Plan: Dressing on Wound care has been consulted (5) Acute blood loss anemia ICD Codes: D62 - Acute posthemorrhagic anemia Status: Acute Plan: On Protonix Problem Qualifiers (1) Sleep apnea: Qualified Codes: G47.30 - Sleep apnea, unspecified (2) HTN (hypertension): Qualified Codes: I10 - Essential (primary) hypertension (3) Skin ulcer: Qualified Codes: L98.492 - Non-pressure chronic ulcer of skin of other sites with fat layer exposed Osbaldo Stevens MD October 23, 2017 17:03
[2017-10-23] MEDS: MORPHINE SULFATE 2 MG/ML SYRINGE IV PRN ×2 (17:04→23:08)
[2017-10-23] MEDS: cloNIDine HCL 0.1 MG TAB PO PRN (23:08)
[2017-10-24] VITALS (13 sets, daily range): BP systolic 148–185; BP diastolic 75–103; PULSE 65–82; RESP 18–20; TEMP 97.9–99.2; O2SAT 95–98
[2017-10-24] MEDS: hydrALAZINE HCL 100 MG TAB PO SCH ×3 (04:55→21:24)
[2017-10-24] MEDS: ACETAMINOPHEN/HYDROcodone 325 MG/10 MG TAB PO PRN ×2 (04:55→17:47)
[2017-10-24] MEDS: CHLORHEXIDINE 0.12% (ORAL KIT) 15 ML CUP MT SCH ×2 (08:00→20:00)
[2017-10-24] MEDS: DOCUSATE SODIUM 50 MG/SENNA 8.6 MG TAB PO SCH ×2 (09:00→21:00)
[2017-10-24] MEDS: COLLAGENASE OINT 30 GM TUBE TOPICAL SCH (09:00)
[2017-10-24] MEDS: PANTOPRAZOLE SODIUM 40 MG VIAL IV PUSH SCH ×2 (10:00→21:25)
[2017-10-24] MEDS: CHOLECALCIFEROL (VIT D3) 5000 UNIT CAP PO SCH (10:01)
[2017-10-24] MEDS: METOPROLOL TARTRATE 50 MG TAB PO SCH ×2 (10:01→21:24)
[2017-10-24] MEDS: SODIUM CHLORIDE 0.9% FLUSH 10 ML FLUSH IV FLUSH SCH ×2 (10:01→21:24)
[2017-10-24] MEDS: NIFEdipine 60 MG SUSTAINED RELEASE TAB PO SCH ×2 (10:01→21:24)
[2017-10-24] MEDS: ISOSORBIDE DINITRATE 20 MG TAB PO SCH ×3 (10:02→17:47)
--- NOTE | 2017-10-24 10:21 | HHI.NPPN ---
Subjective General Problems: Anemia, Edema, Hypertension Renal Failure: Chronic, Stage IV History of Present Illness 46 year old male with a past medical history of chronic kidney disease stage 4, Hypertension, sleep apnea, chronic left lower extremity leg ulcer, obesity, and CHF. Patient presented to the ED with abdominal pain and maroon stools. He was found to have a hemoglobin of 4.5. His blood pressure is elevated now but per records when EMS arrived he was found to be hypotensive with a SBP in the 80 's. Nephrology is consulted for acute on chronic renal failure with a creatinine of 4.72 and potassium of 5.5. His baseline creatinine is at 2.5 to 3.0 and his board worker is Dr. Florez. Additional Remarks Resting comfortably, no shortness of breath or swelling. (Zehra Dela Cruz) Review of Systems General Constitutional: Fatigue (Zehra Dela Cruz) Respiratory Respiratory Remarks Denies SOB (Zehra Dela Cruz) Cardiovascular Cardiac Remarks Denies chest pain (Zehra Dela Cruz) Gastrointestinal GI Remarks denies abdominal pain (Zehra Dela Cruz) Objective Data Data 10/24/17 10/25/17 19:00 07:00 Output Total 525 ml Balance -525 ml Output Urine Total 525 ml Vital Signs Date Time Temp Pulse Resp B/P (MAP) Pulse Ox O2 Delivery O2 Flow Rate FiO2 10/24/17 08:00 99.0 81 20 185/103 (130) 97 10/24/17 04:00 98.3 78 20 182/93 (122) 96 10/24/17 03:42 80 10/24/17 01:00 78 10/24/17 00:00 98.3 71 20 170/81 (110) 96 10/23/17 20:00 Room Air 10/23/17 20:00 98.1 78 19 158/83 (108) 95 10/23/17 20:00 75 10/23/17 16:00 78 10/23/17 16:00 98.7 81 20 189/84 (119) 96 10/23/17 12:00 98.6 73 20 169/79 (109) 96 10/23/17 12:00 67 (Zehra Dela Cruz) -: 10/23/17 0916 10/23/17 0916 Imaging Last Impressions Chest X-Ray 10/16/17 0600 Signed Impressions: Service Date/Time: Monday, October 16, 2017 03:58 - CONCLUSION: 1. Left lower lobe consolidation. 2. ET and central line tips in good position. Lawrence Raya MD Catheter Placement X-Ray 10/15/17 0000 Signed Impressions: Service Date/Time: Sunday, October 15, 2017 17:46 - CONCLUSION: Uncomplicated line placement as above. Pb Orosco MD Abdomen Arteriogram 10/15/17 0000 Signed Impressions: Service Date/Time: Sunday, October 15, 2017 17:46 - CONCLUSION: 1. Limited anatomic visualization due to severe respiratory motion artifact. 2. Hemoclips are identified in the expected distribution of the GDA. As the patient was reportedly actively bleeding by GI and patient's systolic blood pressure was in the 80s on presentation to the interventional department, empiric embolization was performed of the GDA. Pressures at the termination of the procedure were approximately 110 systolic. Pb Orosco MD Abdomen X-Ray 10/10/17 0000 Signed Impressions: Service Date/Time: Tuesday, October 10, 2017 15:26 - CONCLUSION: 1. Findings of mild small bowel ileus in the lower quadrant. Constantino Hagen MD Abdomen/Pelvis CT 10/07/172052 Signed Impressions: Service Date/Time: Saturday, October 07, 2017 21:19 - CONCLUSION: 1. No acute abnormality seen. 2. Colonic diverticula. Cruz Guadarrama MD Tubes & Lines: Vas-Cath Tubes & Lines Comment right IJ (Zhera Dela CruzP) Physical Exam General Appearance: Well Nourished, No Acute Distress, Comfortable, Obese (Zehra Dela CruzP) Throat Throat Exam: Oral Mucosa [place] & Moist (Zehra Dela CruzP) Neck Neck Exam: Neck Supple (Zehra Dela Cruz CLARIFIER) Pulmonary Resp Exam: Breath Sounds Equal, No Distress, Decreased Bases, Diminished Breath Sounds (Zehra Dela CruzP) Cardiology CV Exam: Regular, Normal Sinus Rhythm (Zehra Dela CruzP) Gastrointestinal/Abdomen GI Exam: Soft, Non-Tender, Bowel Sounds Present GI Remarks large (Zehra Dela Cruz) Integumentary Skin Exam: Clear, Warm Skin Remarks wound vac left foot (Zehra Dela Cruz) Extremeties Extremities Exam: Trace Edema (left lower leg with dressing.) (Zehra Dela Cruz) Neurologic Neuro Exam: Alert, Awake, Oriented (Zehra Dela Cruz) Psychiatric Psych Exam: Appropriate Responses (Zehra Dela Cruz) Assessment/Plan Problem List: (1) Acute worsening of stage 4 chronic kidney disease ICD Codes: N28.9 - Disorder of kidney and ureter, unspecified; N18.4 - Chronic kidney disease, stage 4 (severe) Status: Acute Plan: Acute kidney injury with admission creatinine of 4.72 and potassium of 5.5 from most likely hypotension with blood loss and NSAID use. Chronic kidney disease stage 4 from most likely uncontrolled hypertension. His baseline creatinine is at 2.5 to 3.0 and his board worker is Dr. Florez. CT of abdomen is noted to have kidney of normal size and shape. There is no mass, stone or hydronephrosis. GI bleed - urgent embolization with IR yesterday on 10/15 Plan Creatinine stable at 2.8 encourage fluid intake Follow renal panel periodically. Avoid Nephrotoxins. (2) Sleep apnea ICD Codes: G47.30 - Sleep apnea, unspecified Status: Chronic (3) HTN (hypertension) ICD Codes: I10 - Essential (primary) hypertension Status: Chronic Plan: Will monitor (4) Skin ulcer ICD Codes: L98.499 - Non-pressure chronic ulcer of skin of other sites with unspecified severity Status: Chronic Plan: Dressing on (5) Acute blood loss anemia ICD Codes: D62 - Acute posthemorrhagic anemia Status: Acute Plan: On Protonix (Zehra Dela Cruz) Problem List: (1) Acute worsening of stage 4 chronic kidney disease ICD Codes: N28.9 - Disorder of kidney and ureter, unspecified; N18.4 - Chronic kidney disease, stage 4 (severe) Status: Acute Plan: Acute kidney injury with admission creatinine of 4.72 and potassium of 5.5 from most likely hypotension with blood loss and NSAID use. Chronic kidney disease stage 4 from most likely uncontrolled hypertension. His baseline creatinine is at 2.5 to 3.0 and his board worker is Dr. Florez. CT of abdomen is noted to have kidney of normal size and shape. There is no mass, stone or hydronephrosis. GI bleed - urgent embolization with IR yesterday on 10/15 Plan Creatinine stable at 2.8 encourage fluid intake Follow renal panel periodically. Avoid Nephrotoxins. Patient seen and examined, agree with above. Creatinine is stable at 2.8, possibly close to his baseline. (2) Sleep apnea ICD Codes: G47.30 - Sleep apnea, unspecified Status: Chronic (3) HTN (hypertension) ICD Codes: I10 - Essential (primary) hypertension Status: Chronic Plan: Will monitor (4) Skin ulcer ICD Codes: L98.499 - Non-pressure chronic ulcer of skin of other sites with unspecified severity Status: Chronic Plan: Dressing on (5) Acute blood loss anemia ICD Codes: D62 - Acute posthemorrhagic anemia Status: Acute Plan: On Protonix (Aden Block MD) Problem Qualifiers (1) Sleep apnea: Qualified Codes: G47.30 - Sleep apnea, unspecified (2) HTN (hypertension): Qualified Codes: I10 - Essential (primary) hypertension (3) Skin ulcer: Qualified Codes: L98.492 - Non-pressure chronic ulcer of skin of other sites with fat layer exposed Zehra Dela Cruz October 24, 2017 10:21 Aden Block MD October 24, 2017 18:44
--- NOTE | 2017-10-24 13:56 | HHI.PR ---
Subjective Remarks No new complaints. Objective Vitals Vital Signs Date Time Temp Pulse Resp B/P (MAP) Pulse Ox O2 Delivery O2 Flow Rate FiO2 10/24/17 12:00 Room Air 10/24/17 12:00 99.2 71 20 174/86 (115) 95 10/24/17 08:00 Room Air 10/24/17 08:00 99.0 81 20 185/103 (130) 97 10/24/17 04:00 98.3 78 20 182/93 (122) 96 10/24/17 03:42 80 10/24/17 01:00 78 10/24/17 00:00 98.3 71 20 170/81 (110) 96 10/23/17 20:00 Room Air 10/23/17 20:00 98.1 78 19 158/83 (108) 95 10/23/17 20:00 75 10/23/17 16:00 78 10/23/17 16:00 98.7 81 20 189/84 (119) 96 10/24/17 10/24/17 10/25/17 15:00 23:00 07:00 Output Total 825 ml Balance -825 ml Output Urine Total 825 ml Result Diagram: 10/23/17 0916 10/23/17 0916 Imaging Last Impressions Chest X-Ray 10/16/17 0600 Signed Impressions: Service Date/Time: Monday, October 16, 2017 03:58 - CONCLUSION: 1. Left lower lobe consolidation. 2. ET and central line tips in good position. Lawrence Raya MD Catheter Placement X-Ray 10/15/17 0000 Signed Impressions: Service Date/Time: Sunday, October 15, 2017 17:46 - CONCLUSION: Uncomplicated line placement as above. Pb Orosco MD Abdomen Arteriogram 10/15/17 0000 Signed Impressions: Service Date/Time: Sunday, October 15, 2017 17:46 - CONCLUSION: 1. Limited anatomic visualization due to severe respiratory motion artifact. 2. Hemoclips are identified in the expected distribution of the GDA. As the patient was reportedly actively bleeding by GI and patient's systolic blood pressure was in the 80s on presentation to the interventional department, empiric embolization was performed of the GDA. Pressures at the termination of the procedure were approximately 110 systolic. Pb Orosco MD Abdomen X-Ray 10/10/17 0000 Signed Impressions: Service Date/Time: Tuesday, October 10, 2017 15:26 - CONCLUSION: 1. Findings of mild small bowel ileus in the lower quadrant. Constantino Hagen MD Abdomen/Pelvis CT 10/07/172052 Signed Impressions: Service Date/Time: Saturday, October 07, 2017 21:19 - CONCLUSION: 1. No acute abnormality seen. 2. Colonic diverticula. Cruz Guadarrama MD Objective Remarks GENERAL: This is a well-nourished, well-developed patient, in no apparent distress. CARDIOVASCULAR: Regular rate and rhythm without murmurs, gallops, or rubs. RESPIRATORY: Clear to auscultation. Breath sounds equal bilaterally. No wheezes , rales, or rhonchi. GASTROINTESTINAL: Abdomen soft, non-tender, nondistended. Normal active bowel sounds MUSCULOSKELETAL: LLE bandaged NEURO: Alert & Oriented x4 to person, place, time, situation. Moves all ext x4 Procedures s/p EGD (10/08). Pt found to have gastric ulcers. Pt underwent epi/clip s/p debridement and wound vac placement (10/13) A/P Problem List: (1) Acute blood loss anemia ICD Codes: D62 - Acute posthemorrhagic anemia Status: Acute Plan: acute gib. acute blood loss anemia/symptomatic. pt was using goody powder. egd 10/08 gastric ulcers. visible vessel...epi/clip per RN. egd 10/16 active bleeding. epi injection. unable to control IR 10/16: empiric embolization was performed of the GDA. s/p 12 units prbc continue to monitor h/h. stable over past several days tolerating regular solid food currently no evidence of ongoing bleeding transfuse if symptomatic with exertion prn ppi bid PT daily. continue nightly bipap. (2) GI bleed ICD Codes: K92.2 - Gastrointestinal hemorrhage, unspecified Status: Acute Plan: - see above (3) Acute worsening of stage 4 chronic kidney disease ICD Codes: N28.9 - Disorder of kidney and ureter, unspecified; N18.4 - Chronic kidney disease, stage 4 (severe) Status: Acute Plan: - a/ckd 4 - comgmt with Nephrology, Dr. Block - Cr/GFR continue to improve - Cr 4.7 (10/07), 2.84 (/6) - GFR 16 (10/07), 29 (/6) - (4) Skin ulcer ICD Codes: L98.499 - Non-pressure chronic ulcer of skin of other sites with unspecified severity Status: Chronic Plan: - case d/w Dr. Zuri Loya (10/10). - santyl - wound culture (10/10) --> E coli and Proteus mirabilis resistant to Levaquin - D/C ciprofloxin/doxycycline - Rocephin given x 10d - Appreciate consultation from Vascular Surgery, Dr. Victor - obtain segmental Doppler study reviewed conclusion: Normal CURT and TBI on the right. Abnormal TBI on the left. Multiple segments that could not be occluded in the left lower extremity possibly representing severely calcified vessels. CURT could not be calculated. As the patient is symptomatic in the left lower extremity, CTA abdomen with run off recommended. - Can NOT obtain CTA with runoff at this time d/t ARF - see above - continue to observe Creatinine. Consider obtaining CTA withrun off once CR is below 1.7 (5) Sleep apnea ICD Codes: G47.30 - Sleep apnea, unspecified Status: Chronic Plan: - Pt will need re-evaluation with polysomnogram outpt. (6) HTN (hypertension) ICD Codes: I10 - Essential (primary) hypertension Status: Chronic Plan: - lopressor, procardia XL - catapress prn Problem Qualifiers (1) GI bleed: Qualified Codes: K92.2 - Gastrointestinal hemorrhage, unspecified (2) Skin ulcer: Qualified Codes: L98.492 - Non-pressure chronic ulcer of skin of other sites with fat layer exposed (3) Sleep apnea: Qualified Codes: G47.30 - Sleep apnea, unspecified (4) HTN (hypertension): Qualified Codes: I10 - Essential (primary) hypertension González Tierney DO October 24, 2017 13:56
[2017-10-24] MEDS: cloNIDine HCL 0.1 MG TAB PO PRN (14:30)
[2017-10-25] VITALS (10 sets, daily range): BP systolic 109–184; BP diastolic 44–101; PULSE 63–77; RESP 18–20; TEMP 97.5–98.7; O2SAT 92–100
[2017-10-25] MEDS: ACETAMINOPHEN/HYDROcodone 325 MG/10 MG TAB PO PRN ×4 (00:24→22:58)
[2017-10-25] MEDS: hydrALAZINE HCL 100 MG TAB PO SCH ×3 (05:40→22:00)
[2017-10-25 06:24] LABS: AUTOMATED NEUTROPHIL # 4.2 TH/MM3 (1.8-7.7); BASOPHIL % 0.8 % (0.0-2.0); EOSINOPHIL # 0.3 TH/MM3 (0-0.4); EOSINOPHIL % 4.7 % (0.0-4.0); HEMOGLOBIN 7.7 GM/DL (13.0-17.0); LYMPHOCYTE # 1.1 TH/MM3 (1.0-4.8); MEAN CELL VOLUME 89.8 FL (80.0-100.0); MEAN CORPUSCULAR HEMOGLOBIN 30.1 PG (27.0-34.0); MEAN CORPUSCULAR HGB CONC 33.6 % (32.0-36.0); MEAN PLATELET VOLUME 8.7 FL (7.0-11.0); MONO % 7.8 % (0.0-8.0); MONOCYTE # 0.5 TH/MM3 (0-0.9); NEUT % 68.7 % (16.0-70.0); PLATELET COUNT 315 TH/MM3 (150-450); RED BLOOD COUNT 2.56 MIL/MM3 (4.50-5.90); RED CELL DISTRIBUTION WIDTH 18.2 % (11.6-17.2); WHITE BLOOD COUNT 6.1 TH/MM3 (4.0-11.0)
[2017-10-25 06:28] LABS: CALCIUM 7.9 MG/DL (8.5-10.1); CREATININE 2.67 MG/DL (0.60-1.30); MAGNESIUM 2.4 MG/DL (1.5-2.5)
[2017-10-25] MEDS: CHOLECALCIFEROL (VIT D3) 5000 UNIT CAP PO SCH (08:34)
[2017-10-25] MEDS: ISOSORBIDE DINITRATE 20 MG TAB PO SCH ×3 (08:34→17:49)
[2017-10-25] MEDS: NIFEdipine 60 MG SUSTAINED RELEASE TAB PO SCH ×2 (08:34→21:33)
[2017-10-25] MEDS: METOPROLOL TARTRATE 50 MG TAB PO SCH ×2 (08:34→21:33)
[2017-10-25] MEDS: PANTOPRAZOLE SODIUM 40 MG VIAL IV PUSH SCH ×2 (08:35→21:34)
[2017-10-25] MEDS: SODIUM CHLORIDE 0.9% FLUSH 10 ML FLUSH IV FLUSH SCH ×2 (08:35→21:00)
[2017-10-25] MEDS: DOCUSATE SODIUM 50 MG/SENNA 8.6 MG TAB PO SCH ×2 (09:00→21:00)
[2017-10-25] MEDS: COLLAGENASE OINT 30 GM TUBE TOPICAL SCH (09:00)
[2017-10-25] MEDS ORDERED: MIDAZOLAM HCL 2 MG/2 ML VIAL ONE (11:00)
[2017-10-25] MEDS ORDERED: PROPOFOL 200 MG/20 ML AMP IV ONE (12:00)
[2017-10-25] MEDS ORDERED: DEXAMETHASONE SOD PHOS 4 MG/ML VIAL IV ONE (12:00)
[2017-10-25] MEDS ORDERED: ROCURONIUM INJ 50 MG/5 ML SYRINGE IV PUSH ONE (12:00)
[2017-10-25] MEDS ORDERED: LIDOCAINE HCL 1% PF 5 ML SYRINGE OTHER ONE (12:00)
[2017-10-25] MEDS ORDERED: ONDANSETRON HCL 4 MG/2 ML VIAL IV PUSH ONE (12:00)
[2017-10-25] MEDS ORDERED: GLYCOPYRROLATE 1 MG/5 ML SYRINGE IV PUSH ONE (12:00)
[2017-10-25] MEDS ORDERED: NEOSTIGMINE 5 MG/5 ML SYRINGE IV PUSH ONE (12:00)
[2017-10-25] MEDS ORDERED: LIDOCAINE HCL 1% 50 ML VIAL ONE (12:05)
--- NOTE | 2017-10-25 13:10 | HHI.PR ---
Subjective Remarks Patient seen bedside nurse present. Patient states he is in extreme pain to left lower extremity. He is sleepy and states he is too tired to move his leg. Seen in preop Objective Vital Signs Date Time Temp Pulse Resp B/P (MAP) Pulse Ox O2 Delivery O2 Flow Rate FiO2 10/25/17 08:00 99 Room Air 21 10/25/17 08:00 98.7 75 20 184/101 (128) 99 10/25/17 08:00 76 10/25/17 07:55 100 21 10/25/17 04:00 98.2 70 18 158/81 (106) 96 10/25/17 03:51 65 10/25/17 01:44 18 10/25/17 00:29 98 40 10/25/17 00:26 77 10/25/17 00:00 Room Air 10/24/17 23:35 98.9 73 18 163/95 (117) 97 148/88 (108) 10/24/17 21:20 Room Air 10/24/17 20:19 77 10/24/17 19:55 98.4 73 18 161/77 (105) 98 Automatic Cuff 10/24/17 16:00 Room Air 10/24/17 16:00 97.9 67 20 176/75 (108) 97 10/24/17 15:51 65 I/O 10/24/17 10/24/17 10/24/17 10/25/17 10/25/17 10/25/17 07:00 15:00 23:00 07:00 15:00 23:00 Intake Total 240 ml 240 ml Output Total 550 ml 825 ml 300 ml 700 ml Balance -310 ml -825 ml -60 ml -700 ml Intake Oral 240 ml 240 ml Output Urine Total 550 ml 825 ml 300 ml 700 ml # Bowel Movements 0 0 Result Diagram: 10/25/17 0520 10/25/17 0500 Imaging Last Impressions Chest X-Ray 10/16/17 0600 Signed Impressions: Service Date/Time: Monday, October 16, 2017 03:58 - CONCLUSION: 1. Left lower lobe consolidation. 2. ET and central line tips in good position. Lawrence Raya MD Catheter Placement X-Ray 10/15/17 0000 Signed Impressions: Service Date/Time: Sunday, October 15, 2017 17:46 - CONCLUSION: Uncomplicated line placement as above. Pb Orosco MD Abdomen Arteriogram 10/15/17 0000 Signed Impressions: Service Date/Time: Sunday, October 15, 2017 17:46 - CONCLUSION: 1. Limited anatomic visualization due to severe respiratory motion artifact. 2. Hemoclips are identified in the expected distribution of the GDA. As the patient was reportedly actively bleeding by GI and patient's systolic blood pressure was in the 80s on presentation to the interventional department, empiric embolization was performed of the GDA. Pressures at the termination of the procedure were approximately 110 systolic. Pb Orosco MD Abdomen X-Ray 10/10/17 0000 Signed Impressions: Service Date/Time: Tuesday, October 10, 2017 15:26 - CONCLUSION: 1. Findings of mild small bowel ileus in the lower quadrant. Constantino Hagen MD Abdomen/Pelvis CT 10/07/172052 Signed Impressions: Service Date/Time: Saturday, October 07, 2017 21:19 - CONCLUSION: 1. No acute abnormality seen. 2. Colonic diverticula. Cruz Guadarrama MD Objective Remarks Lower extremity physical exam: Vascular: Dorsalis pedis diminished, posterior tibial diminished. Capillary refill time within normal limits to digits 5 bilateral foot. Edema present left lower extremity Neuro: Gross sensation intact to bilateral lower extremity. Pinpoint sensation intact. No hyperalgesia noted to bilateral lower extremity Dermatology: Normal temperature and turgor to bilateral lower extremity. Left posterior calf ulceration encompassing 50% of calf with granular base and rolled epithelialized borders noted. No signs of infection noted. Musculoskeletal: Tender to palpation to left posterior calf. Medications and IVs Current Medications Medications (Trade) Dose Ordered Sig/Stan Route Start Time Stop Time Status Last Admin (Isordil) 20 mg TID PO 10/08/17 09:00 10/25/17 08:34 (NS Flush) 2 ml UNSCH PRN IV FLUSH 10/07/17 23:00 10/11/17 06:14 (NS Flush) 2 ml BID IV FLUSH 10/08/17 09:00 10/25/17 08:35 (Tylenol) 650 mg Q4H PRN PO 10/07/17 23:00 10/17/17 14:26 (Zofran Inj) 4 mg Q6H PRN IVP 10/07/17 23:00 10/21/17 14:13 (Narcan Inj) 0.4 mg UNSCH PRN IV PUSH 10/07/17 23:00 (Alyssa-Colace) 1 tab BID PO 10/08/17 09:00 10/21/17 20:36 (Milk Of Magnesia Liq) 30 ml Q12H PRN PO 10/07/17 23:00 (Senokot) 17.2 mg Q12H PRN PO 10/07/17 23:00 (Dulcolax Supp) 10 mg DAILY PRN RECTAL 10/07/17 23:00 (Lactulose Liq) 30 ml DAILY PRN PO 10/07/17 23:00 Miscellaneous Information Patient in critical care unit? Ass... [id number] .XX 10/08/17 00:30 (Morphine Inj) 2 mg Q2H PRN IV 10/08/17 00:45 10/23/17 23:08 (Catapres) 0.1 mg Q4H PRN PO 10/08/17 09:00 10/24/17 14:30 (Benadryl Inj) 25 mg Q6H PRN IV 10/08/17 20:00 10/22/17 14:42 (Lopressor) 50 mg Q12HR PO 10/10/17 21:00 10/25/17 08:34 (Vitamin D3) 5,000 units DAILY PO 10/11/17 09:00 10/25/17 08:34 (Santyl Oint) 1 applic DAILY TOPICAL 10/11/17 16:00 10/23/17 09:00 (Apresoline) 100 mg Q8HR PO 10/14/17 14:00 10/25/17 05:40 (Procardia Xl) 60 mg Q12HR PO 10/14/17 17:45 10/25/17 08:34 (Protonix Inj) 40 mg Q12HR IV PUSH 10/15/17 12:45 10/25/17 08:35 (NS Flush) UNSCH PRN IV FLUSH 10/15/17 18:45 (Heparin Inj) UNSCH PRN IV FLUSH 10/15/17 18:45 (Peridex 0.12% Liq) 15 ml BID@08,20 MT 10/15/17 20:00 10/16/17 08:55 (Duoneb Neb) 1 ampule Q2HR NEB PRN INH 10/15/17 19:15 ([place] 10-325 Mg) 1 tab Q4H PRN PO 10/20/17 11:00 10/25/17 08:42 Assessment and Plan Assessment and Plan 46-year-old male posterior calf ulceration status post debridement and irrigation VAC placement performed 10/[address] Loya Patient examined evaluated with all questions answered Graft placement to posterior left leg ulcer Consent signed TO OR today LLE marked Patient has been NPO after midnight Teodora Zaidi DPManuela October 25, 2017 13:10
[2017-10-25] MEDS ORDERED: DO NOT ADM ANY ANTICOAGULANT DRUGS PRN (14:48)
[2017-10-25] MEDS ORDERED: SODIUM CHLORIDE 0.9% FLUSH 10 ML FLUSH IV FLUSH PRN (15:00)
[2017-10-25] MEDS ORDERED: Post-op Orders (for Pharmacy) XX ONE (15:00)
--- NOTE | 2017-10-25 15:38 | MR ---
cc: Teodora Zaidi DPM DATE: 10/25/2017 SURGEON: Teodora Zaidi DPM RIBBON WEAVER: None. PREOPERATIVE DIAGNOSIS: Left calf wound measuring 20 x 16. POSTOPERATIVE DIAGNOSIS: Left calf wound measuring 20 x 16. PROCEDURE: Left calf wound debridement and irrigation with graft placement. ANESTHESIA: General with local infiltrate of 1% lidocaine infiltrated about the posterior calf, 10 mL total. HEMOSTASIS: None. ESTIMATED BLOOD LOSS: Less than 5 mL. MATERIALS: 8 x 3 Amniox NEOX cord. INJECTABLES: None. COMPLICATIONS: None. INDICATIONS FOR PROCEDURE: The patient is a 47-year-old male with a posterior calf wound, which was debrided by Dr. Loya. Wound VAC was placed and there was noted to be healthy granulation tissue. Decision was made to apply graft. The patient understands all benefits, alternatives, risks associated with the procedure. DESCRIPTION OF PROCEDURE: The patient was brought back to the operating room, placed on the operating room table in the prone position after general anesthesia was induced. Local infiltrate of 1% lidocaine plain was infiltrated about the left posterior calf, 20 mL total. The left foot was then prepped and draped in the usual sterile fashion. Attention was then directed to the posterior calf wound which was measuring 20 cm x 16 cm. The patient's calf was sharply debrided. Full excisional debridement was performed with a 15 blade as well as Versajet. NEOX cord graft 8 x 3 was then applied to posterior calf wound. The patient tolerated the procedure and anesthesia well. There was dressing applied including Adaptic, 4 x 4s, Vic, cast padding, Kwan. The patient tolerated the procedure and anesthesia well, was transferred out of the OR to PACU with vital signs stable and neurovascular status intact to the left lower leg. MIKALA Villanueva/JULIO , 03:10 PM , 03:37 PM
--- NOTE | 2017-10-25 16:29 | HHI.PR ---
Subjective Remarks Pt just returned from OR Pain controlled No new complaints Objective Vitals Vital Signs Date Time Temp Pulse Resp B/P (MAP) Pulse Ox O2 Delivery O2 Flow Rate FiO2 10/25/17 15:35 97.8 63 16 142/94 (110) 96 Nasal Cannula 3 10/25/17 15:15 62 15 142/93 (109) 97 Bi-Pap 45 10/25/17 15:00 74 15 145/81 (102) 94 Bi-Pap 45 10/25/17 14:45 98.6 79 15 147/80 (102) 91 Nasal Cannula 6 10/25/17 14:30 97 45 10/25/17 08:00 99 Room Air 21 10/25/17 08:00 98.7 75 20 184/101 (128) 99 10/25/17 08:00 76 10/25/17 07:55 100 21 10/25/17 04:00 98.2 70 18 158/81 (106) 96 10/25/17 03:51 65 10/25/17 01:44 18 10/25/17 00:29 98 40 10/25/17 00:26 77 10/25/17 00:00 Room Air 10/24/17 23:35 98.9 73 18 163/95 (117) 97 148/88 (108) 10/24/17 21:20 Room Air 10/24/17 20:19 77 10/24/17 19:55 98.4 73 18 161/77 (105) 98 Automatic Cuff 10/25/17 10/25/17 10/26/17 15:00 23:00 07:00 Intake Total 500 ml 50 ml Output Total 710 ml 0 ml Balance -210 ml 50 ml IV Total 50 ml Other 500 ml Output Urine Total 700 ml 0 ml Estimated Blood Loss 10 ml Result Diagram: 10/25/17 0520 10/25/17 0500 Other Results Laboratory Tests Test 10/25/17 05:00 10/25/17 05:20 Blood Urea Nitrogen 26 MG/DL Creatinine 2.67 MG/DL Random Glucose 103 MG/DL Calcium Level 7.9 MG/DL Magnesium Level 2.4 MG/DL Sodium Level 143 MEQ/L Potassium Level 4.1 MEQ/L Chloride Level 109 MEQ/L Carbon Dioxide Level 25.0 MEQ/L Anion Gap 9 MEQ/L Estimat Glomerular Filtration Rate 31 ML/MIN White Blood Count 6.1 TH/MM3 Red Blood Count 2.56 MIL/MM3 Hemoglobin 7.7 GM/DL Hematocrit 23.0 % Mean Corpuscular Volume 89.8 FL Mean Corpuscular Hemoglobin 30.1 PG Mean Corpuscular Hemoglobin Concent 33.6 % Red Cell Distribution Width 18.2 % Platelet Count 315 TH/MM3 Mean Platelet Volume 8.7 FL Neutrophils (%) (Auto) 68.7 % Lymphocytes (%) (Auto) 18.0 % Monocytes (%) (Auto) 7.8 % Eosinophils (%) (Auto) 4.7 % Basophils (%) (Auto) 0.8 % Neutrophils # (Auto) 4.2 TH/MM3 Lymphocytes # (Auto) 1.1 TH/MM3 Monocytes # (Auto) 0.5 TH/MM3 Eosinophils # (Auto) 0.3 TH/MM3 Basophils # (Auto) 0.0 TH/MM3 CBC Comment DIFF FINAL Differential Comment Imaging Last Impressions Abdomen/Pelvis CT 10/07/172052 Signed Impressions: Service Date/Time: Saturday, October 07, 2017 21:19 - CONCLUSION: 1. No acute abnormality seen. 2. Colonic diverticula. Cruz Guadarrama MD Objective Remarks General: NAD, AAOx3 Chest: Good air movement bilaterally Cardiac: Regular Abd: +BS, soft, obese, nontender Ext: LLE bandages are c/d/i Procedures s/p EGD (10/08). Pt found to have gastric ulcers. Pt underwent epi/clip s/p debridement and wound vac placement (10/13) A/P Problem List: (1) Acute blood loss anemia ICD Codes: D62 - Acute posthemorrhagic anemia Status: Acute Plan: - Acute GIB, acute blood loss anemia/symptomatic. - Pt was reportedly using goody powder. - H/H on admission 4.5/13.8. - EGD (10/08) --> Gastritis with gastric ulcer with visible vessel- Endoclipping with epi injection. - EGD (10/15) for significant drop in H/H overnight --> Esophagus normal. Stomach with residual food, active bleeding most likely either the antrum or pyloric channel injection of epinephrine. - Angiogram with embolization (10/15) --> Limited anatomic visualization due to severe respiratory motion artifact. Hemoclips are identified in the expected distribution of the GDA. As the patient was reportedly actively bleeding by GI and patient's systolic blood pressure was in the 80s on presentation to the interventional department, empiric embolization was performed of the GDA. Pressures at the termination of the procedure were approximately 110 systolic. - Pt has received 12 units PRBCs during admission - H/H has been stable over the past few days with Hgb in the 7's - He is tolerating solid foods - No evidence of ongoing bleeding. - Transfuse if symptomatic with exertion prn - PPI BID - PT daily. (2) GI bleed ICD Codes: K92.2 - Gastrointestinal hemorrhage, unspecified Status: Acute Plan: - see above (3) Acute worsening of stage 4 chronic kidney disease ICD Codes: N28.9 - Disorder of kidney and ureter, unspecified; N18.4 - Chronic kidney disease, stage 4 (severe) Status: Acute Plan: - a/ckd 4 - comgmt with Nephrology, Dr. Block - Cr/GFR continues to improve - Cr/GFR continue to improve - Cr 4.7 (10/07), 2.84 (10/23), 2.67 (10/25) - GFR 16 (10/07), 29 (10/23), 31 (10/25) - repeat BMP in AM (4) Skin ulcer ICD Codes: L98.499 - Non-pressure chronic ulcer of skin of other sites with unspecified severity Status: Chronic Plan: - case d/w Dr. Zuri Loya (10/10). - santyl - wound culture (10/10) --> E coli and Proteus mirabilis resistant to Levaquin - will DC ciprofloxacin/doxycycline - Rocephin - Vascular Surgery Consult requested. Case d/w Dr. Victor. - obtain segmental Doppler study reviewed conclusion: Normal CURT and TBI on the right. Abnormal TBI on the left. Multiple segments that could not be occluded in the left lower extremity possibly representing severely calcified vessels. CURT could not be calculated. As the patient is symptomatic in the left lower extremity, CTA abdomen with run off recommended. - Pt underwent left leg debridement and wound vac placement on 10/13/[address] Loya. - Pt underwent Left calf wound debridement and irrigation with graft placement on 10/25/[address] Zaidi (5) Sleep apnea ICD Codes: G47.30 - Sleep apnea, unspecified Status: Chronic Plan: - Pt will need re-evaluation with polysomnogram outpt. - Cont. CPAP (6) HTN (hypertension) ICD Codes: I10 - Essential (primary) hypertension Status: Chronic Plan: - Pt is currently on Metoprolol 50mg Q12H, Hydralazine 100mg Q8H, Procardia XL 60mg Q12H, Isordil 20mg TID - Observe Assessment and Plan Patient examined. Assessment and plan formulated with Alessia Azul PA-C. I agree with the above. Case d/w Podiatry, Dr. Hoffman, (10/25/17) Pt underwent treatment of chronic LLE ulcer with NEOX wound allograft Problem Qualifiers (1) GI bleed: Qualified Codes: K92.2 - Gastrointestinal hemorrhage, unspecified (2) Skin ulcer: Qualified Codes: L98.492 - Non-pressure chronic ulcer of skin of other sites with fat layer exposed (3) Sleep apnea: Qualified Codes: G47.30 - Sleep apnea, unspecified (4) HTN (hypertension): Qualified Codes: I10 - Essential (primary) hypertension Alessia Azul October 25, 2017 16:29 González Tierney DO October 25, 2017 23:23
--- NOTE | 2017-10-25 16:50 | HHI.NPPN ---
Subjective General Problems: Anemia, Edema, Hypertension Renal Failure: Chronic, Stage IV History of Present Illness 46 year old male with a past medical history of chronic kidney disease stage 4, Hypertension, sleep apnea, chronic left lower extremity leg ulcer, obesity, and CHF. Patient presented to the ED with abdominal pain and maroon stools. He was found to have a hemoglobin of 4.5. His blood pressure is elevated now but per records when EMS arrived he was found to be hypotensive with a SBP in the 80 's. Nephrology is consulted for acute on chronic renal failure with a creatinine of 4.72 and potassium of 5.5. His baseline creatinine is at 2.5 to 3.0 and his digital service engineer is Dr. Florez. Additional Remarks Patient has just returned from OR s/p left calf wound debridement and irrigation with graft placement. (Zehra Dela Cruz) Review of Systems General Constitutional: Fatigue (Zehra Dela Cruz) Respiratory Respiratory Remarks Denies SOB (Zehra Dela Cruz) Cardiovascular Cardiac Remarks Denies chest pain (Zehra Dela Cruz) Gastrointestinal GI Remarks denies abdominal pain (Zehra Dela Cruz) Objective Data Data 10/25/17 10/26/17 19:00 07:00 Intake Total 550 ml Output Total 710 ml Balance -160 ml IV Total 50 ml Other 500 ml Output Urine Total 700 ml Estimated Blood Loss 10 ml Vital Signs Date Time Temp Pulse Resp B/P (MAP) Pulse Ox O2 Delivery O2 Flow Rate FiO2 10/25/17 16:00 97.5 63 20 152/88 (109) 93 10/25/17 15:35 97.8 63 16 142/94 (110) 96 Nasal Cannula 3 10/25/17 15:15 62 15 142/93 (109) 97 Bi-Pap 45 10/25/17 15:00 74 15 145/81 (102) 94 Bi-Pap 45 10/25/17 14:45 98.6 79 15 147/80 (102) 91 Nasal Cannula 6 10/25/17 14:30 97 45 10/25/17 08:00 99 Room Air 21 10/25/17 08:00 98.7 75 20 184/101 (128) 99 10/25/17 08:00 76 10/25/17 07:55 100 21 10/25/17 04:00 98.2 70 18 158/81 (106) 96 10/25/17 03:51 65 10/25/17 01:44 18 10/25/17 00:29 98 40 10/25/17 00:26 77 10/25/17 00:00 Room Air 10/24/17 23:35 98.9 73 18 163/95 (117) 97 148/88 (108) 10/24/17 21:20 Room Air 10/24/17 20:19 77 10/24/17 19:55 98.4 73 18 161/77 (105) 98 Automatic Cuff (Zehra Dela Cruz) -: 10/25/17 0520 10/25/17 0500 Tubes & Lines: Vas-Cath Tubes & Lines Comment right IJ (Zehra Dela Cruz) Physical Exam General Appearance: Well Nourished, No Acute Distress, Comfortable, Obese (Zehra Dela Cruz) Throat Throat Exam: Oral Mucosa [place] & Moist (Zehra Dela Cruz) Neck Neck Exam: Neck Supple (Zehra Dela Cruz) Pulmonary Resp Exam: Breath Sounds Equal, No Distress, Decreased Bases, Diminished Breath Sounds (Zehra Dela Cruz) Cardiology CV Exam: Regular, Normal Sinus Rhythm (Zehra Dela Crzu) Gastrointestinal/Abdomen GI Exam: Soft, Non-Tender, Bowel Sounds Present GI Remarks large (Zehra Dela Cruz) Integumentary Skin Exam: Clear, Warm Skin Remarks wound vac left foot (Zehra Dela Cruz) Extremeties Extremities Exam: Trace Edema (left lower leg with dressing.) (Zehra Dela Cruz) Neurologic Neuro Exam: Alert, Awake, Oriented (Zehra Dela Cruz) Psychiatric Psych Exam: Appropriate Responses (Zehra Dela Cruz) Assessment/Plan Problem List: (1) Acute worsening of stage 4 chronic kidney disease ICD Codes: N28.9 - Disorder of kidney and ureter, unspecified; N18.4 - Chronic kidney disease, stage 4 (severe) Status: Acute Plan: Acute kidney injury with admission creatinine of 4.72 and potassium of 5.5 from most likely hypotension with blood loss and NSAID use. Chronic kidney disease stage 4 from most likely uncontrolled hypertension. His baseline creatinine is at 2.5 to 3.0 and his digital service engineer is Dr. Florez. CT of abdomen is noted to have kidney of normal size and shape. There is no mass, stone or hydronephrosis. GI bleed - urgent embolization with IR yesterday on 10/15 Plan Creatinine stable at 2.67 from 2.84 at baseline encourage fluid intake Follow renal panel periodically. Avoid Nephrotoxins. (2) Sleep apnea ICD Codes: G47.30 - Sleep apnea, unspecified Status: Chronic (3) HTN (hypertension) ICD Codes: I10 - Essential (primary) hypertension Status: Chronic Plan: Will monitor (4) Skin ulcer ICD Codes: L98.499 - Non-pressure chronic ulcer of skin of other sites with unspecified severity Status: Chronic Plan: Dressing on (5) Acute blood loss anemia ICD Codes: D62 - Acute posthemorrhagic anemia Status: Acute Plan: On Protonix (Zehra Dela Cruz) Problem List: (1) Acute worsening of stage 4 chronic kidney disease ICD Codes: N28.9 - Disorder of kidney and ureter, unspecified; N18.4 - Chronic kidney disease, stage 4 (severe) Status: Acute Plan: Acute kidney injury with admission creatinine of 4.72 and potassium of 5.5 from most likely hypotension with blood loss and NSAID use. Chronic kidney disease stage 4 from most likely uncontrolled hypertension. His baseline creatinine is at 2.5 to 3.0 and his digital service engineer is Dr. Florez. CT of abdomen is noted to have kidney of normal size and shape. There is no mass, stone or hydronephrosis. GI bleed - urgent embolization with IR yesterday on 10/15 Plan Creatinine stable at 2.67 from 2.84 at baseline encourage fluid intake Follow renal panel periodically. Avoid Nephrotoxins. Patient seen and examined, agree with above. Creatinine almost same,encourage oral fluid intake. (2) Sleep apnea ICD Codes: G47.30 - Sleep apnea, unspecified Status: Chronic (3) HTN (hypertension) ICD Codes: I10 - Essential (primary) hypertension Status: Chronic Plan: Will monitor (4) Skin ulcer ICD Codes: L98.499 - Non-pressure chronic ulcer of skin of other sites with unspecified severity Status: Chronic Plan: Dressing on (5) Acute blood loss anemia ICD Codes: D62 - Acute posthemorrhagic anemia Status: Acute Plan: On Protonix (Aden Block MD) Problem Qualifiers (1) Sleep apnea: Qualified Codes: G47.30 - Sleep apnea, unspecified (2) HTN (hypertension): Qualified Codes: I10 - Essential (primary) hypertension (3) Skin ulcer: Qualified Codes: L98.492 - Non-pressure chronic ulcer of skin of other sites with fat layer exposed Zehra Dela Cruz October 25, 2017 16:50 Adne Block MD October 26, 2017 22:09
[2017-10-25] MEDS: CHLORHEXIDINE 0.12% (ORAL KIT) 15 ML CUP MT SCH (19:59)
[2017-10-26] VITALS (10 sets, daily range): BP systolic 134–185; BP diastolic 73–95; PULSE 70–88; RESP 17–20; TEMP 97.3–98.7; O2SAT 89–99
[2017-10-26] MEDS: ACETAMINOPHEN/HYDROcodone 325 MG/10 MG TAB PO PRN ×3 (02:36→22:40)
[2017-10-26] MEDS: hydrALAZINE HCL 100 MG TAB PO SCH ×3 (05:17→22:39)
[2017-10-26] MEDS: MORPHINE SULFATE 2 MG/ML SYRINGE IV PRN ×2 (05:17→13:25)
[2017-10-26 07:42] LABS: BASOPHIL % 0.7 % (0.0-2.0); EOSINOPHIL # 0.1 TH/MM3 (0-0.4); EOSINOPHIL % 1.9 % (0.0-4.0); HEMATOCRIT 22.6 % (39.0-51.0); HEMOGLOBIN 7.5 GM/DL (13.0-17.0); LYMPH % 15.6 % (9.0-44.0); LYMPHOCYTE # 1.1 TH/MM3 (1.0-4.8); MEAN CELL VOLUME 90.3 FL (80.0-100.0); MEAN CORPUSCULAR HEMOGLOBIN 30.1 PG (27.0-34.0); MEAN CORPUSCULAR HGB CONC 33.3 % (32.0-36.0); MEAN PLATELET VOLUME 8.2 FL (7.0-11.0); MONO % 9.8 % (0.0-8.0); MONOCYTE # 0.7 TH/MM3 (0-0.9); PLATELET COUNT 314 TH/MM3 (150-450); RED CELL DISTRIBUTION WIDTH 18.5 % (11.6-17.2)
[2017-10-26 07:52] LABS: BICARBONATE 26.2 MEQ/L (21.0-32.0); CREATININE 3.71 MG/DL (0.60-1.30); MAGNESIUM 2.3 MG/DL (1.5-2.5)
[2017-10-26] MEDS: PANTOPRAZOLE SODIUM 40 MG VIAL IV PUSH SCH ×2 (09:00→19:42)
[2017-10-26] MEDS: COLLAGENASE OINT 30 GM TUBE TOPICAL SCH (09:00)
[2017-10-26] MEDS: SODIUM CHLORIDE 0.9% FLUSH 10 ML FLUSH IV FLUSH SCH ×2 (09:00→19:44)
[2017-10-26] MEDS: DOCUSATE SODIUM 50 MG/SENNA 8.6 MG TAB PO SCH ×2 (10:03→19:43)
[2017-10-26] MEDS: METOPROLOL TARTRATE 50 MG TAB PO SCH ×2 (10:03→19:42)
[2017-10-26] MEDS: CHOLECALCIFEROL (VIT D3) 5000 UNIT CAP PO SCH (10:03)
[2017-10-26] MEDS: NIFEdipine 60 MG SUSTAINED RELEASE TAB PO SCH ×2 (10:03→19:42)
[2017-10-26] MEDS: ISOSORBIDE DINITRATE 20 MG TAB PO SCH ×3 (10:03→16:58)
--- NOTE | 2017-10-26 10:22 | HHI.NPPN ---
Subjective General Problems: Anemia, Edema, Hypertension Renal Failure: Chronic, Stage IV History of Present Illness 46 year old male with a past medical history of chronic kidney disease stage 4, Hypertension, sleep apnea, chronic left lower extremity leg ulcer, obesity, and CHF. Patient presented to the ED with abdominal pain and maroon stools. He was found to have a hemoglobin of 4.5. His blood pressure is elevated now but per records when EMS arrived he was found to be hypotensive with a SBP in the 80 's. Nephrology is consulted for acute on chronic renal failure with a creatinine of 4.72 and potassium of 5.5. His baseline creatinine is at 2.5 to 3.0 and his electric motor analyst is Dr. Florez. Additional Remarks Eating breakfast. Increase in creatinine at 3.71 from 2.67 (Zehra Dela Cruz) Review of Systems General Constitutional: Fatigue (Zehra Dela Cruz) Respiratory Respiratory Remarks Denies SOB (Zehra Dela Cruz) Cardiovascular Cardiac Remarks Denies chest pain (Zehra Dela Cruz) Gastrointestinal GI Remarks denies abdominal pain (Zehra Dela Cruz) Objective Data Data Vital Signs Date Time Temp Pulse Resp B/P (MAP) Pulse Ox O2 Delivery O2 Flow Rate FiO2 10/26/17 08:00 98.5 84 17 155/88 (110) 89 10/26/17 04:33 18 10/26/17 04:00 Room Air 10/26/17 03:53 88 10/26/17 03:41 98 40 10/26/17 03:28 97.3 70 20 147/82 (103) 99 10/26/17 00:30 99 40 10/26/17 00:00 98.7 80 20 134/73 (93) 95 10/26/17 00:00 Room Air 10/26/17 00:00 77 10/25/17 21:40 Room Air 10/25/17 20:00 73 10/25/17 19:40 98.3 74 20 109/44 (65) 92 10/25/17 16:00 97.5 63 20 152/88 (109) 93 10/25/17 15:35 97.8 63 16 142/94 (110) 96 Nasal Cannula 3 10/25/17 15:15 62 15 142/93 (109) 97 Bi-Pap 45 10/25/17 15:00 74 15 145/81 (102) 94 Bi-Pap 45 10/25/17 14:45 98.6 79 15 147/80 (102) 91 Nasal Cannula 6 10/25/17 14:30 97 45 (Zehra Dela Cruz) -: 10/26/17 0600 10/26/17 0600 Imaging Last Impressions Chest X-Ray 10/16/17 0600 Signed Impressions: Service Date/Time: Monday, October 16, 2017 03:58 - CONCLUSION: 1. Left lower lobe consolidation. 2. ET and central line tips in good position. Lawrence Raya MD Catheter Placement X-Ray 10/15/17 0000 Signed Impressions: Service Date/Time: Sunday, October 15, 2017 17:46 - CONCLUSION: Uncomplicated line placement as above. Pb Orosco MD Abdomen Arteriogram 10/15/17 0000 Signed Impressions: Service Date/Time: Sunday, October 15, 2017 17:46 - CONCLUSION: 1. Limited anatomic visualization due to severe respiratory motion artifact. 2. Hemoclips are identified in the expected distribution of the GDA. As the patient was reportedly actively bleeding by GI and patient's systolic blood pressure was in the 80s on presentation to the interventional department, empiric embolization was performed of the GDA. Pressures at the termination of the procedure were approximately 110 systolic. Pb Orosco MD Abdomen X-Ray 10/10/17 0000 Signed Impressions: Service Date/Time: Tuesday, October 10, 2017 15:26 - CONCLUSION: 1. Findings of mild small bowel ileus in the lower quadrant. Constantino Hagen MD Abdomen/Pelvis CT 10/07/172052 Signed Impressions: Service Date/Time: Saturday, October 07, 2017 21:19 - CONCLUSION: 1. No acute abnormality seen. 2. Colonic diverticula. Cruz Guadarrama MD (Zehra Dela Cruz) Physical Exam General Appearance: Well Nourished, No Acute Distress, Comfortable, Obese (Zehra Dela Cruz) Throat Throat Exam: Oral Mucosa [place] & Moist (Zehra Dela Cruz) Neck Neck Exam: Neck Supple (Zehra Dela Cruz) Pulmonary Resp Exam: Breath Sounds Equal, No Distress, Decreased Bases, Diminished Breath Sounds (Zehra Dela Cruz) Cardiology CV Exam: Regular, Normal Sinus Rhythm (Zehra Dela Cruz) Gastrointestinal/Abdomen GI Exam: Soft, Non-Tender, Bowel Sounds Present GI Remarks large (Zehra Dela Cruz) Integumentary Skin Exam: Clear, Warm Skin Remarks wound vac left foot (Zehra Dela Cruz) Extremeties Extremities Exam: Trace Edema (left lower leg with dressing.) (Zehra Dela Cruz) Neurologic Neuro Exam: Alert, Awake, Oriented (Zehra Dela Cruz) Psychiatric Psych Exam: Appropriate Responses (Zehra Dela Cruz) Assessment/Plan Problem List: (1) Acute worsening of stage 4 chronic kidney disease ICD Codes: N28.9 - Disorder of kidney and ureter, unspecified; N18.4 - Chronic kidney disease, stage 4 (severe) Status: Acute Plan: Acute kidney injury with admission creatinine of 4.72 and potassium of 5.5 from most likely hypotension with blood loss and NSAID use. Chronic kidney disease stage 4 from most likely uncontrolled hypertension. His baseline creatinine is at 2.5 to 3.0 and his electric motor analyst is Dr. Florez. CT of abdomen is noted to have kidney of normal size and shape. There is no mass, stone or hydronephrosis. GI bleed - urgent embolization with IR yesterday on 10/15 R s/p left calf wound debridement and irrigation with graft placement on 10/25/17 Plan Creatinine increased at 3.71 from 2.68 yesterday potassium normal Encourage fluid intake Hemoglobin at 7.5 will give dose of procrit. Follow renal panel periodically. Avoid Nephrotoxins. (2) Sleep apnea ICD Codes: G47.30 - Sleep apnea, unspecified Status: Chronic (3) HTN (hypertension) ICD Codes: I10 - Essential (primary) hypertension Status: Chronic Plan: Will monitor (4) Skin ulcer ICD Codes: L98.499 - Non-pressure chronic ulcer of skin of other sites with unspecified severity Status: Chronic Plan: Dressing on (5) Acute blood loss anemia ICD Codes: D62 - Acute posthemorrhagic anemia Status: Acute Plan: On Protonix (Zehra Dela Cruz) Problem List: (1) Acute worsening of stage 4 chronic kidney disease ICD Codes: N28.9 - Disorder of kidney and ureter, unspecified; N18.4 - Chronic kidney disease, stage 4 (severe) Status: Acute Plan: Acute kidney injury with admission creatinine of 4.72 and potassium of 5.5 from most likely hypotension with blood loss and NSAID use. Chronic kidney disease stage 4 from most likely uncontrolled hypertension. His baseline creatinine is at 2.5 to 3.0 and his electric motor analyst is Dr. Florez. CT of abdomen is noted to have kidney of normal size and shape. There is no mass, stone or hydronephrosis. GI bleed - urgent embolization with IR yesterday on 10/15 R s/p left calf wound debridement and irrigation with graft placement on 10/25/17 Plan Creatinine increased at 3.71 from 2.68 yesterday potassium normal Encourage fluid intake Hemoglobin at 7.5 will give dose of procrit. Follow renal panel periodically. Avoid Nephrotoxins. Patient seen and examined, agree with above. Creatinine increase, possibly pre renal, started IVF, told to increase fluid intake. Procrit for anemia. (2) Sleep apnea ICD Codes: G47.30 - Sleep apnea, unspecified Status: Chronic (3) HTN (hypertension) ICD Codes: I10 - Essential (primary) hypertension Status: Chronic Plan: Will monitor (4) Skin ulcer ICD Codes: L98.499 - Non-pressure chronic ulcer of skin of other sites with unspecified severity Status: Chronic Plan: Dressing on (5) Acute blood loss anemia ICD Codes: D62 - Acute posthemorrhagic anemia Status: Acute Plan: On Protonix (Aden Block MD) Problem Qualifiers (1) Sleep apnea: Qualified Codes: G47.30 - Sleep apnea, unspecified (2) HTN (hypertension): Qualified Codes: I10 - Essential (primary) hypertension (3) Skin ulcer: Qualified Codes: L98.492 - Non-pressure chronic ulcer of skin of other sites with fat layer exposed Zehra Dela Cruz October 26, 2017 10:22 Aden Block MD October 26, 2017 22:17
--- NOTE | 2017-10-26 10:56 | HHI.PR ---
Subjective Remarks No new complaints. Objective Vitals Vital Signs Date Time Temp Pulse Resp B/P (MAP) Pulse Ox O2 Delivery O2 Flow Rate FiO2 10/26/17 08:00 98.5 84 17 155/88 (110) 89 10/26/17 04:33 18 10/26/17 04:00 Room Air 10/26/17 03:53 88 10/26/17 03:41 98 40 10/26/17 03:28 97.3 70 20 147/82 (103) 99 10/26/17 00:30 99 40 10/26/17 00:00 98.7 80 20 134/73 (93) 95 10/26/17 00:00 Room Air 10/26/17 00:00 77 10/25/17 21:40 Room Air 10/25/17 20:00 73 10/25/17 19:40 98.3 74 20 109/44 (65) 92 10/25/17 16:00 97.5 63 20 152/88 (109) 93 10/25/17 15:35 97.8 63 16 142/94 (110) 96 Nasal Cannula 3 10/25/17 15:15 62 15 142/93 (109) 97 Bi-Pap 45 10/25/17 15:00 74 15 145/81 (102) 94 Bi-Pap 45 10/25/17 14:45 98.6 79 15 147/80 (102) 91 Nasal Cannula 6 10/25/17 14:30 97 45 Result Diagram: 10/26/17 0600 10/26/17 0600 Imaging Last Impressions Chest X-Ray 10/16/17 0600 Signed Impressions: Service Date/Time: Monday, October 16, 2017 03:58 - CONCLUSION: 1. Left lower lobe consolidation. 2. ET and central line tips in good position. Lawrence Raya MD Catheter Placement X-Ray 10/15/17 0000 Signed Impressions: Service Date/Time: Sunday, October 15, 2017 17:46 - CONCLUSION: Uncomplicated line placement as above. Pb Orosco MD Abdomen Arteriogram 10/15/17 0000 Signed Impressions: Service Date/Time: Sunday, October 15, 2017 17:46 - CONCLUSION: 1. Limited anatomic visualization due to severe respiratory motion artifact. 2. Hemoclips are identified in the expected distribution of the GDA. As the patient was reportedly actively bleeding by GI and patient's systolic blood pressure was in the 80s on presentation to the interventional department, empiric embolization was performed of the GDA. Pressures at the termination of the procedure were approximately 110 systolic. Pb Orosco MD Abdomen X-Ray 10/10/17 0000 Signed Impressions: Service Date/Time: Tuesday, October 10, 2017 15:26 - CONCLUSION: 1. Findings of mild small bowel ileus in the lower quadrant. Constantino Hagen MD Abdomen/Pelvis CT 10/07/172052 Signed Impressions: Service Date/Time: Saturday, October 07, 2017 21:19 - CONCLUSION: 1. No acute abnormality seen. 2. Colonic diverticula. Cruz Guadarrama MD Objective Remarks GENERAL: This is a well-nourished, well-developed patient, in no apparent distress. CARDIOVASCULAR: Regular rate and rhythm without murmurs, gallops, or rubs. RESPIRATORY: Clear to auscultation. Breath sounds equal bilaterally. No wheezes , rales, or rhonchi. GASTROINTESTINAL: Abdomen soft, non-tender, nondistended. Normal active bowel sounds MUSCULOSKELETAL: LLE bandaged NEURO: Alert & Oriented x4 to person, place, time, situation. Moves all ext x4 Procedures - s/p EGD (10/08). Pt found to have gastric ulcers. Pt underwent epi/clip - s/p debridement and wound vac placement (10/13) - Pt underwent Left calf wound debridement and irrigation with graft placement ( NEOX wound allograft) on 10/25/[address] Zaidi (10/25) A/P Problem List: (1) Acute blood loss anemia ICD Codes: D62 - Acute posthemorrhagic anemia Status: Acute Plan: - Acute GIB, acute blood loss anemia/symptomatic. - Pt was reportedly using goody powder. - H/H on admission 4.5/13.8. - EGD (10/08) --> Gastritis with gastric ulcer with visible vessel- Endoclipping with epi injection. - EGD (10/15) for significant drop in H/H overnight --> Esophagus normal. Stomach with residual food, active bleeding most likely either the antrum or pyloric channel injection of epinephrine. - Angiogram with embolization (10/15) --> Limited anatomic visualization due to severe respiratory motion artifact. Hemoclips are identified in the expected distribution of the GDA. As the patient was reportedly actively bleeding by GI and patient's systolic blood pressure was in the 80s on presentation to the interventional department, empiric embolization was performed of the GDA. Pressures at the termination of the procedure were approximately 110 systolic. - Pt has received 12 units PRBCs during admission - H/H has been stable over the past few days with Hgb in the 7's - He is tolerating solid foods - No evidence of ongoing bleeding. - Transfuse if symptomatic with exertion prn - PPI BID - PT daily. - Pt given Epogen (10/26). Will monitor response - CBC in AM (2) GI bleed ICD Codes: K92.2 - Gastrointestinal hemorrhage, unspecified Status: Acute Plan: - see above (3) Acute worsening of stage 4 chronic kidney disease ICD Codes: N28.9 - Disorder of kidney and ureter, unspecified; N18.4 - Chronic kidney disease, stage 4 (severe) Status: Acute Plan: - a/ckd 4 - comgmt with Nephrology, Dr. Block - Cr/GFR continues to improve - Cr/GFR continue to improve - Cr 4.7 (10/07), 2.84 (/), 2.67 (10/25), 3.71 (10/26) - GFR 16 (10/07), 29 (/6), 31 (/), 21 (10/26) - fluid challenge - repeat BMP/Mag in AM (4) Skin ulcer ICD Codes: L98.499 - Non-pressure chronic ulcer of skin of other sites with unspecified severity Status: Chronic Plan: - case d/w Dr. Zuri Loya (10/10). - santyl - wound culture (10/10) --> E coli and Proteus mirabilis resistant to Levaquin - will DC ciprofloxacin/doxycycline - Rocephin - Vascular Surgery Consult requested. Case d/w Dr. Victor. - obtain segmental Doppler study reviewed conclusion: Normal CURT and TBI on the right. Abnormal TBI on the left. Multiple segments that could not be occluded in the left lower extremity possibly representing severely calcified vessels. CURT could not be calculated. As the patient is symptomatic in the left lower extremity, CTA abdomen with run off recommended. - Pt underwent left leg debridement and wound vac placement on 10/13/[address] Loya. - Pt underwent Left calf wound debridement and irrigation with graft placement ( NEOX wound allograft) on 10/25/[address] Zaidi (10/25) (5) Sleep apnea ICD Codes: G47.30 - Sleep apnea, unspecified Status: Chronic Plan: - Pt will need re-evaluation with polysomnogram outpt. - Cont. CPAP (6) HTN (hypertension) ICD Codes: I10 - Essential (primary) hypertension Status: Chronic Plan: - Pt is currently on Metoprolol 50mg Q12H, Hydralazine 100mg Q8H, Procardia XL 60mg Q12H, Isordil 20mg TID - Observe Problem Qualifiers (1) GI bleed: Qualified Codes: K92.2 - Gastrointestinal hemorrhage, unspecified (2) Skin ulcer: Qualified Codes: L98.492 - Non-pressure chronic ulcer of skin of other sites with fat layer exposed (3) Sleep apnea: Qualified Codes: G47.30 - Sleep apnea, unspecified (4) HTN (hypertension): Qualified Codes: I10 - Essential (primary) hypertension González Tierney DO October 26, 2017 10:56
[2017-10-26] MEDS ORDERED: EPOETIN ALFA 20,000 UNITS/ML VIAL SQ ONE (11:30)
[2017-10-26] MEDS: 1/2 NS + KCL 20 MEQ INJ 1,000 ML IV SCH ×2 (11:32→19:44)
[2017-10-26] MEDS: cloNIDine HCL 0.1 MG TAB PO PRN (16:58)
[2017-10-26] MEDS: CHLORHEXIDINE 0.12% (ORAL KIT) 15 ML CUP MT SCH (19:20)
--- NOTE | 2017-10-26 23:01 | HHI.PR ---
Subjective Remarks Patient seen bedside post op day 1. No complaints. Is out of bed in chair posterior calf offloaded. Objective Vital Signs Date Time Temp Pulse Resp B/P (MAP) Pulse Ox O2 Delivery O2 Flow Rate FiO2 10/26/17 22:48 98.4 71 20 166/95 (118) 95 Manual Cuff/Palpation 10/26/17 16:00 98.3 73 17 185/88 (120) 92 10/26/17 14:00 98.1 80 17 160/74 (102) 94 10/26/17 08:00 98.5 84 17 155/88 (110) 89 10/26/17 08:00 86 10/26/17 08:00 92 Room Air 40 10/26/17 04:33 18 10/26/17 04:00 Room Air 10/26/17 03:53 88 10/26/17 03:41 98 40 10/26/17 03:28 97.3 70 20 147/82 (103) 99 10/26/17 00:30 99 40 10/26/17 00:00 98.7 80 20 134/73 (93) 95 10/26/17 00:00 Room Air 10/26/17 00:00 77 I/O 10/25/17 10/25/17 10/25/17 10/26/17 10/26/17 10/26/17 07:00 15:00 23:00 07:00 15:00 23:00 Intake Total 240 ml 500 ml 50 ml 480 ml 1500 ml Output Total 300 ml 710 ml 0 ml 350 ml 1050 ml Balance -60 ml -210 ml 50 ml 130 ml 450 ml Intake Oral 240 ml 480 ml 1500 ml IV Total 50 ml Other 500 ml Output Urine Total 300 ml 700 ml 0 ml 350 ml 1050 ml Estimated Blood Loss 10 ml # Bowel Movements 0 0 0 Result Diagram: 10/26/17 0600 10/26/17599 Imaging Last Impressions Chest X-Ray 10/16/17 06 Signed Impressions: Service Date/Time: Monday, October 16, 2017 03:58 - CONCLUSION: 1. Left lower lobe consolidation. 2. ET and central line tips in good position. Lawrence Raya MD Catheter Placement X-Ray 10/15/17 0000 Signed Impressions: Service Date/Time: Sunday, October 15, 2017 17:46 - CONCLUSION: Uncomplicated line placement as above. Pb Orosco MD Abdomen Arteriogram 10/15/17 0000 Signed Impressions: Service Date/Time: Sunday, October 15, 2017 17:46 - CONCLUSION: 1. Limited anatomic visualization due to severe respiratory motion artifact. 2. Hemoclips are identified in the expected distribution of the GDA. As the patient was reportedly actively bleeding by GI and patient's systolic blood pressure was in the 80s on presentation to the interventional department, empiric embolization was performed of the GDA. Pressures at the termination of the procedure were approximately 110 systolic. Pb Orosco MD Abdomen X-Ray 10/10/17 0000 Signed Impressions: Service Date/Time: Tuesday, October 10, 2017 15:26 - CONCLUSION: 1. Findings of mild small bowel ileus in the lower quadrant. Constantino Hagen MD Abdomen/Pelvis CT 10/07/172052 Signed Impressions: Service Date/Time: Saturday, October 07, 2017 21:19 - CONCLUSION: 1. No acute abnormality seen. 2. Colonic diverticula. Cruz Guadarrama MD Procedures s/p debridement and irrigation with graft placement DOS: 10/25/17 Other Results Microbiology Date/Time Source Procedure Growth Status 10/10/17 15:45 Wound Leg Gram Stain - Final Complete 10/10/17 15:45 Wound Culture - Final Escherichia Coli Proteus Mirabilis Complete Objective Remarks Lower extremity physical exam: Dressing intact LLE. Sensation intact LLE. Active/Passive DF/PF to digits x5 left LLE. Medications and IVs Current Medications Medications (Trade) Dose Ordered Sig/Stan Route Start Time Stop Time Status Last Admin (Isordil) 20 mg TID PO 10/08/17 09:00 10/26/17 16:58 (NS Flush) 2 ml UNSCH PRN IV FLUSH 10/07/17 23:00 10/11/17 06:14 (NS Flush) 2 ml BID IV FLUSH 10/08/17 09:00 10/26/17 09:00 (Tylenol) 650 mg Q4H PRN PO 10/07/17 23:00 10/17/17 14:26 (Zofran Inj) 4 mg Q6H PRN IVP 10/07/17 23:00 10/21/17 14:13 (Narcan Inj) 0.4 mg UNSCH PRN IV PUSH 10/07/17 23:00 (Alyssa-Colace) 1 tab BID PO 10/08/17 09:00 10/26/17 10:03 (Milk Of Magnesia Liq) 30 ml Q12H PRN PO 10/07/17 23:00 (Senokot) 17.2 mg Q12H PRN PO 10/07/17 23:00 (Dulcolax Supp) 10 mg DAILY PRN RECTAL 10/07/17 23:00 (Lactulose Liq) 30 ml DAILY PRN PO 10/07/17 23:00 Miscellaneous Information Patient in critical care unit? Ass... [id number] .XX 10/08/17 00:30 (Morphine Inj) 2 mg Q2H PRN IV 10/08/17 00:45 10/26/17 13:25 (Catapres) 0.1 mg Q4H PRN PO 10/08/17 09:00 10/26/17 16:58 (Benadryl Inj) 25 mg Q6H PRN IV 10/08/17 20:00 10/22/17 14:42 (Lopressor) 50 mg Q12HR PO 10/10/17 21:00 10/26/17 19:42 (Vitamin D3) 5,000 units DAILY PO 10/11/17 09:00 10/26/17 10:03 (Santyl Oint) 1 applic DAILY TOPICAL 10/11/17 16:00 10/23/17 09:00 (Apresoline) 100 mg Q8HR PO 10/14/17 14:00 10/26/17 22:39 (Procardia Xl) 60 mg Q12HR PO 10/14/17 17:45 10/26/17 19:42 (Protonix Inj) 40 mg Q12HR IV PUSH 10/15/17 12:45 10/26/17 19:42 (NS Flush) UNSCH PRN IV FLUSH 10/15/17 18:45 (Heparin Inj) UNSCH PRN IV FLUSH 10/15/17 18:45 (Peridex 0.12% Liq) 15 ml BID@08,20 MT 10/15/17 20:00 10/16/17 08:55 (Duoneb Neb) 1 ampule Q2HR NEB PRN INH 10/15/17 19:15 ([place] 10-325 Mg) 1 tab Q4H PRN PO 10/20/17 11:00 10/26/17 22:40 (NS Flush) 2 ml UNSCH PRN IV FLUSH 10/25/17 15:00 Potassium Chloride/Sodium Chloride 1,000 ml @ 84 mls/hr [id number] IV 10/26/17 11:00 10/27/17 08:00 10/26/17 19:44 Assessment and Plan Assessment and Plan 46-year-old male posterior calf ulceration status post debridement and irrigation VAC placement performed 10/[address] Loya s/p Debridement and irrigation with graft placement DOS: 10/25/17 Patient examined evaluated with all questions answered Continue offloading posterior leg Will change dressing tomorrow Teodora Zaidi DPM October 26, 2017 23:00
[2017-10-27] VITALS (12 sets, daily range): BP systolic 140–191; BP diastolic 56–100; PULSE 64–81; RESP 19–20; TEMP 97.6–99; O2SAT 93–98
[2017-10-27] MEDS: MORPHINE SULFATE 2 MG/ML SYRINGE IV PRN ×2 (00:46→17:59)
[2017-10-27] MEDS: hydrALAZINE HCL 100 MG TAB PO SCH ×3 (04:56→20:59)
[2017-10-27 06:25] LABS: AUTOMATED NEUTROPHIL # 3.9 TH/MM3 (1.8-7.7); BASOPHIL # 0.1 TH/MM3 (0-0.2); BASOPHIL % 1.1 % (0.0-2.0); EOSINOPHIL # 0.3 TH/MM3 (0-0.4); EOSINOPHIL % 5.1 % (0.0-4.0); HEMATOCRIT 24.7 % (39.0-51.0); HEMOGLOBIN 8.1 GM/DL (13.0-17.0); LYMPH % 21.7 % (9.0-44.0); LYMPHOCYTE # 1.3 TH/MM3 (1.0-4.8); MEAN CELL VOLUME 90.8 FL (80.0-100.0); MEAN CORPUSCULAR HEMOGLOBIN 29.9 PG (27.0-34.0); MEAN CORPUSCULAR HGB CONC 32.9 % (32.0-36.0); MEAN PLATELET VOLUME 8.3 FL (7.0-11.0); MONO % 9.1 % (0.0-8.0); MONOCYTE # 0.6 TH/MM3 (0-0.9); PLATELET COUNT 332 TH/MM3 (150-450); RED BLOOD COUNT 2.72 MIL/MM3 (4.50-5.90); RED CELL DISTRIBUTION WIDTH 18.5 % (11.6-17.2); WHITE BLOOD COUNT 6.2 TH/MM3 (4.0-11.0)
[2017-10-27 06:42] LABS: BICARBONATE 24.5 MEQ/L (21.0-32.0); CREATININE 3.14 MG/DL (0.60-1.30); MAGNESIUM 2.2 MG/DL (1.5-2.5)
[2017-10-27] MEDS: CHLORHEXIDINE 0.12% (ORAL KIT) 15 ML CUP MT SCH ×2 (08:00→20:00)
[2017-10-27] MEDS: COLLAGENASE OINT 30 GM TUBE TOPICAL SCH (09:00)
[2017-10-27] MEDS: DOCUSATE SODIUM 50 MG/SENNA 8.6 MG TAB PO SCH ×2 (09:00→20:59)
[2017-10-27] MEDS: SODIUM CHLORIDE 0.9% FLUSH 10 ML FLUSH IV FLUSH SCH ×2 (09:00→20:59)
[2017-10-27] MEDS: NIFEdipine 60 MG SUSTAINED RELEASE TAB PO SCH ×2 (09:31→20:59)
[2017-10-27] MEDS: METOPROLOL TARTRATE 50 MG TAB PO SCH ×2 (09:31→20:59)
[2017-10-27] MEDS: CHOLECALCIFEROL (VIT D3) 5000 UNIT CAP PO SCH (09:31)
[2017-10-27] MEDS: ISOSORBIDE DINITRATE 20 MG TAB PO SCH ×3 (09:31→17:21)
[2017-10-27] MEDS: PANTOPRAZOLE SODIUM 40 MG VIAL IV PUSH SCH ×2 (09:32→20:59)
--- NOTE | 2017-10-27 10:12 | HHI.NPPN ---
Subjective General Problems: Anemia, Edema, Hypertension Renal Failure: Chronic, Stage IV History of Present Illness 46 year old male with a past medical history of chronic kidney disease stage 4, Hypertension, sleep apnea, chronic left lower extremity leg ulcer, obesity, and CHF. Patient presented to the ED with abdominal pain and maroon stools. He was found to have a hemoglobin of 4.5. His blood pressure is elevated now but per records when EMS arrived he was found to be hypotensive with a SBP in the 80 's. Nephrology is consulted for acute on chronic renal failure with a creatinine of 4.72 and potassium of 5.5. His baseline creatinine is at 2.5 to 3.0 and his industrial robotics mechanic is Dr. Florez. Additional Remarks Slight improvement in creatinine today. Blood pressure is elevated. (Zehra Dela Cruz) Review of Systems General Constitutional: Fatigue (Zehra Dela Cruz) Respiratory Respiratory Remarks Denies SOB (Zehra Dela Cruz) Cardiovascular Cardiac Remarks Denies chest pain (Zehra Dela Cruz) Gastrointestinal GI Remarks denies abdominal pain (Zehra Dela Cruz) Objective Data Data Vital Signs Date Time Temp Pulse Resp B/P (MAP) Pulse Ox O2 Delivery O2 Flow Rate FiO2 10/27/17 08:07 95 21 10/27/17 08:00 98.2 76 20 191/100 (130) 95 Manual Cuff/Auscultation 10/27/17 04:00 97.6 81 19 158/91 (113) 93 10/27/17 04:00 68 10/27/17 01:01 98 BiPAP 10/27/17 00:59 98 40 10/27/17 00:00 64 10/26/17 22:48 98.4 71 20 166/95 (118) 95 Manual Cuff/Palpation 10/26/17 20:00 77 10/26/17 16:00 98.3 73 17 185/88 (120) 92 10/26/17 14:00 98.1 80 17 160/74 (102) 94 (Zehra Dela Cruz) -: 10/27/17 0538 10/27/17 0538 Imaging Last Impressions Chest X-Ray 10/16/17 0600 Signed Impressions: Service Date/Time: Monday, October 16, 2017 03:58 - CONCLUSION: 1. Left lower lobe consolidation. 2. ET and central line tips in good position. Lawrence Raya MD Catheter Placement X-Ray 10/15/17 0000 Signed Impressions: Service Date/Time: Sunday, October 15, 2017 17:46 - CONCLUSION: Uncomplicated line placement as above. Pb Orosco MD Abdomen Arteriogram 10/15/17 0000 Signed Impressions: Service Date/Time: Sunday, October 15, 2017 17:46 - CONCLUSION: 1. Limited anatomic visualization due to severe respiratory motion artifact. 2. Hemoclips are identified in the expected distribution of the GDA. As the patient was reportedly actively bleeding by GI and patient's systolic blood pressure was in the 80s on presentation to the interventional department, empiric embolization was performed of the GDA. Pressures at the termination of the procedure were approximately 110 systolic. Pb Orosco MD Abdomen X-Ray 10/10/17 0000 Signed Impressions: Service Date/Time: Tuesday, October 10, 2017 15:26 - CONCLUSION: 1. Findings of mild small bowel ileus in the lower quadrant. Constantino Hagen MD Abdomen/Pelvis CT 10/07/172052 Signed Impressions: Service Date/Time: Saturday, October 07, 2017 21:19 - CONCLUSION: 1. No acute abnormality seen. 2. Colonic diverticula. Cruz Guadarrama MD (Zehra Dela Cruz) Physical Exam General Appearance: Well Nourished, No Acute Distress, Comfortable, Obese (Zehra Dela Cruz) Throat Throat Exam: Oral Mucosa [place] & Moist (Zehra Dela CruzP) Neck Neck Exam: Neck Supple (Zehra Dela Cruz) Pulmonary Resp Exam: Breath Sounds Equal, No Distress, Decreased Bases, Diminished Breath Sounds (Zehra Dela CruzP) Cardiology CV Exam: Regular, Normal Sinus Rhythm (Zehra Dela Cruz) Gastrointestinal/Abdomen GI Exam: Soft, Non-Tender, Bowel Sounds Present GI Remarks large (Zehra Dela Cruz) Integumentary Skin Exam: Clear, Warm Skin Remarks NAKIA wrap to left leg (Zehra Dela Cruz) Extremeties Extremities Exam: Trace Edema (left lower leg with dressing.) (Zehra Dela Cruz) Neurologic Neuro Exam: Alert, Awake, Oriented (Zehra Dela Cruz) Psychiatric Psych Exam: Appropriate Responses (Zehra Dela Cruz) Assessment/Plan Problem List: (1) Acute worsening of stage 4 chronic kidney disease ICD Codes: N28.9 - Disorder of kidney and ureter, unspecified; N18.4 - Chronic kidney disease, stage 4 (severe) Status: Acute Plan: Acute kidney injury with admission creatinine of 4.72 and potassium of 5.5 from most likely hypotension with blood loss and NSAID use. Chronic kidney disease stage 4 from most likely uncontrolled hypertension. His baseline creatinine is at 2.5 to 3.0 and his industrial robotics mechanic is Dr. Florez. CT of abdomen is noted to have kidney of normal size and shape. There is no mass, stone or hydronephrosis. GI bleed - urgent embolization with IR yesterday on 10/15 R s/p left calf wound debridement and irrigation with graft placement on 10/25/17 Plan Creatinine with slight improvement today at 3.10 from 3.71 potassium remains normal. Increase yesterday possibly prerenal Fluids encouraged Blood pressure elevated partially pain related will add clonidine BID and monitor Follow renal panel periodically. Avoid Nephrotoxins. (2) Sleep apnea ICD Codes: G47.30 - Sleep apnea, unspecified Status: Chronic (3) HTN (hypertension) ICD Codes: I10 - Essential (primary) hypertension Status: Chronic Plan: Will monitor (4) Skin ulcer ICD Codes: L98.499 - Non-pressure chronic ulcer of skin of other sites with unspecified severity Status: Chronic Plan: Dressing on (5) Acute blood loss anemia ICD Codes: D62 - Acute posthemorrhagic anemia Status: Acute Plan: On Protonix (Zehra Dela Cruz) Problem List: (1) Acute worsening of stage 4 chronic kidney disease ICD Codes: N28.9 - Disorder of kidney and ureter, unspecified; N18.4 - Chronic kidney disease, stage 4 (severe) Status: Acute Plan: Acute kidney injury with admission creatinine of 4.72 and potassium of 5.5 from most likely hypotension with blood loss and NSAID use. Chronic kidney disease stage 4 from most likely uncontrolled hypertension. His baseline creatinine is at 2.5 to 3.0 and his industrial robotics mechanic is Dr. Florez. CT of abdomen is noted to have kidney of normal size and shape. There is no mass, stone or hydronephrosis. GI bleed - urgent embolization with IR yesterday on 10/15 R s/p left calf wound debridement and irrigation with graft placement on 10/25/17 Plan Creatinine with slight improvement today at 3.10 from 3.71 potassium remains normal. Increase yesterday possibly prerenal Fluids encouraged Blood pressure elevated partially pain related will add clonidine BID and monitor Follow renal panel periodically. Avoid Nephrotoxins. Patient seen and examined, agree with above. Creatinine is better, Clonidine is started for elevated BP. (2) Sleep apnea ICD Codes: G47.30 - Sleep apnea, unspecified Status: Chronic (3) HTN (hypertension) ICD Codes: I10 - Essential (primary) hypertension Status: Chronic Plan: Will monitor (4) Skin ulcer ICD Codes: L98.499 - Non-pressure chronic ulcer of skin of other sites with unspecified severity Status: Chronic Plan: Dressing on (5) Acute blood loss anemia ICD Codes: D62 - Acute posthemorrhagic anemia Status: Acute Plan: On Protonix (Aden Block MD) Problem Qualifiers (1) Sleep apnea: Qualified Codes: G47.30 - Sleep apnea, unspecified (2) HTN (hypertension): Qualified Codes: I10 - Essential (primary) hypertension (3) Skin ulcer: Qualified Codes: L98.492 - Non-pressure chronic ulcer of skin of other sites with fat layer exposed Zehra Dela Cruz October 27, 2017 10:12 Aden Block MD October 27, 2017 18:37
--- NOTE | 2017-10-27 11:41 | HHI.PR ---
Subjective Remarks No new complaints. Objective Vitals Vital Signs Date Time Temp Pulse Resp B/P (MAP) Pulse Ox O2 Delivery O2 Flow Rate FiO2 10/27/17 08:07 95 21 10/27/17 08:00 95 Room Air 10/27/17 08:00 72 10/27/17 08:00 98.2 76 20 191/100 (130) 95 Manual Cuff/Auscultation 10/27/17 04:00 97.6 81 19 158/91 (113) 93 10/27/17 04:00 68 10/27/17 01:01 98 BiPAP 10/27/17 00:59 98 40 10/27/17 00:00 64 10/26/17 22:48 98.4 71 20 166/95 (118) 95 Manual Cuff/Palpation 10/26/17 20:00 77 10/26/17 16:00 98.3 73 17 185/88 (120) 92 10/26/17 14:00 98.1 80 17 160/74 (102) 94 Result Diagram: 10/27/17 0538 10/27/17 0538 Imaging Last Impressions Chest X-Ray 10/16/17 0600 Signed Impressions: Service Date/Time: Monday, October 16, 2017 03:58 - CONCLUSION: 1. Left lower lobe consolidation. 2. ET and central line tips in good position. Lawrence Raya MD Catheter Placement X-Ray 10/15/17 0000 Signed Impressions: Service Date/Time: Sunday, October 15, 2017 17:46 - CONCLUSION: Uncomplicated line placement as above. Pb Orosco MD Abdomen Arteriogram 10/15/17 0000 Signed Impressions: Service Date/Time: Sunday, October 15, 2017 17:46 - CONCLUSION: 1. Limited anatomic visualization due to severe respiratory motion artifact. 2. Hemoclips are identified in the expected distribution of the GDA. As the patient was reportedly actively bleeding by GI and patient's systolic blood pressure was in the 80s on presentation to the interventional department, empiric embolization was performed of the GDA. Pressures at the termination of the procedure were approximately 110 systolic. Pb Orosco MD Abdomen X-Ray 10/10/17 0000 Signed Impressions: Service Date/Time: Tuesday, October 10, 2017 15:26 - CONCLUSION: 1. Findings of mild small bowel ileus in the lower quadrant. Constantino Hagen MD Abdomen/Pelvis CT 10/07/172052 Signed Impressions: Service Date/Time: Saturday, October 07, 2017 21:19 - CONCLUSION: 1. No acute abnormality seen. 2. Colonic diverticula. Cruz Guadarrama MD Objective Remarks GENERAL: This is a well-nourished, well-developed patient, in no apparent distress. CARDIOVASCULAR: Regular rate and rhythm without murmurs, gallops, or rubs. RESPIRATORY: Clear to auscultation. Breath sounds equal bilaterally. No wheezes , rales, or rhonchi. GASTROINTESTINAL: Abdomen soft, non-tender, nondistended. Normal active bowel sounds MUSCULOSKELETAL: LLE bandaged NEURO: Alert & Oriented x4 to person, place, time, situation. Moves all ext x4 Procedures - s/p EGD (10/08). Pt found to have gastric ulcers. Pt underwent epi/clip - s/p debridement and wound vac placement (10/13) - Pt underwent Left calf wound debridement and irrigation with graft placement ( NEOX wound allograft) on 10/25/[address] Zaidi (10/25) A/P Problem List: (1) Acute blood loss anemia ICD Codes: D62 - Acute posthemorrhagic anemia Status: Acute Plan: - Acute GIB, acute blood loss anemia/symptomatic. - Pt was reportedly using goody powder. - H/H on admission 4.5/13.8. - EGD (10/08) --> Gastritis with gastric ulcer with visible vessel- Endoclipping with epi injection. - EGD (10/15) for significant drop in H/H overnight --> Esophagus normal. Stomach with residual food, active bleeding most likely either the antrum or pyloric channel injection of epinephrine. - Angiogram with embolization (10/15) --> Limited anatomic visualization due to severe respiratory motion artifact. Hemoclips are identified in the expected distribution of the GDA. As the patient was reportedly actively bleeding by GI and patient's systolic blood pressure was in the 80s on presentation to the interventional department, empiric embolization was performed of the GDA. Pressures at the termination of the procedure were approximately 110 systolic. - Pt has received 12 units PRBCs during admission - H/H has been stable over the past few days with Hgb in the 7's - He is tolerating solid foods - No evidence of ongoing bleeding. - Transfuse if symptomatic with exertion prn - PPI BID - PT daily. - Pt given Epogen (10/26). - Hg 7.5 (10/26), 8.1 (10/27) - CBC in AM (2) GI bleed ICD Codes: K92.2 - Gastrointestinal hemorrhage, unspecified Status: Acute Plan: - see above (3) Acute worsening of stage 4 chronic kidney disease ICD Codes: N28.9 - Disorder of kidney and ureter, unspecified; N18.4 - Chronic kidney disease, stage 4 (severe) Status: Acute Plan: - a/ckd 4 - comgmt with Nephrology, Dr. Block - Cr/GFR continues to improve - Cr/GFR continue to improve - Cr 4.7 (10/07), 2.84 (10/23), 2.67 (10/25), 3.71 (10/26), 3.14 (10/27) - GFR 16 (10/07), 29 (10/23), 31 (10/25), 21 (10/26), 26 (10/27) - continue IVFs - repeat BMP in AM (4) Skin ulcer ICD Codes: L98.499 - Non-pressure chronic ulcer of skin of other sites with unspecified severity Status: Chronic Plan: - case d/w Dr. Zuri Loya (10/10). - santyl - wound culture (10/10) --> E coli and Proteus mirabilis resistant to Levaquin - will DC ciprofloxacin/doxycycline - Rocephin - Vascular Surgery Consult requested. Case d/w Dr. Victor. - obtain segmental Doppler study reviewed conclusion: Normal CURT and TBI on the right. Abnormal TBI on the left. Multiple segments that could not be occluded in the left lower extremity possibly representing severely calcified vessels. CURT could not be calculated. As the patient is symptomatic in the left lower extremity, CTA abdomen with run off recommended. - Pt underwent left leg debridement and wound vac placement on 10/13/[address] Loya. - Pt underwent Left calf wound debridement and irrigation with graft placement ( NEOX wound allograft) on 10/25/[address] Zaidi (10/25) - Dressing changed by Dr. Zaidi (10/27) - graft appeared viable/healing - pt painful with dressing change - Continue hospitalization for dressing change with IV pain medication in 48 hours (5) Sleep apnea ICD Codes: G47.30 - Sleep apnea, unspecified Status: Chronic Plan: - Pt will need re-evaluation with polysomnogram outpt. - continue CPAP (6) HTN (hypertension) ICD Codes: I10 - Essential (primary) hypertension Status: Chronic Plan: - Pt is currently on Metoprolol 50mg Q12H --> increase to 75mg BID - Hydralazine 100mg Q8H, - Procardia XL 60mg Q12H, Isordil 20mg TID - Pt started on catapress 0.1mg BID per Nephrology - Observe Problem Qualifiers (1) GI bleed: Qualified Codes: K92.2 - Gastrointestinal hemorrhage, unspecified (2) Skin ulcer: Qualified Codes: L98.492 - Non-pressure chronic ulcer of skin of other sites with fat layer exposed (3) Sleep apnea: Qualified Codes: G47.30 - Sleep apnea, unspecified (4) HTN (hypertension): Qualified Codes: I10 - Essential (primary) hypertension González Tierney DO October 27, 2017 11:41
[2017-10-27] MEDS: 1/2 NS + KCL 20 MEQ INJ 1,000 ML IV SCH ×2 (12:09→23:17)
[2017-10-27] MEDS: cloNIDine HCL 0.1 MG TAB PO SCH ×2 (12:09→20:59)
[2017-10-27] MEDS: ACETAMINOPHEN/HYDROcodone 325 MG/10 MG TAB PO PRN ×3 (12:10→20:59)
--- NOTE | 2017-10-27 20:19 | HHI.PR ---
Subjective Remarks Patient seen bedside post op day 2. Is in bed posterior calf offloaded. Patient is in pain upon dressing change. Nurse and Dr. Tierney bedside. Pain medication given IV prior to dressing change. Objective Vital Signs Date Time Temp Pulse Resp B/P (MAP) Pulse Ox O2 Delivery O2 Flow Rate FiO2 10/27/17 18:17 93 Room Air 10/27/17 18:17 72 10/27/17 17:39 93 21 10/27/17 16:00 98.3 70 20 140/56 (84) 93 Automatic Cuff 10/27/17 13:07 94 Room Air 10/27/17 13:07 70 10/27/17 12:00 98.4 78 20 184/95 (124) 94 170/90 (116) 10/27/17 08:07 95 21 10/27/17 08:00 95 Room Air 10/27/17 08:00 72 10/27/17 08:00 98.2 76 20 191/100 (130) 95 Manual Cuff/Auscultation 10/27/17 04:00 97.6 81 19 158/91 (113) 93 10/27/17 04:00 68 10/27/17 01:01 98 BiPAP 10/27/17 00:59 98 40 10/27/17 00:00 64 10/26/17 22:48 98.4 71 20 166/95 (118) 95 Manual Cuff/Palpation I/O 10/26/17 10/26/17 10/26/17 10/27/17 10/27/17 10/27/17 07:00 15:00 23:00 07:00 15:00 23:00 Intake Total 480 ml 2500 ml 950 ml 1920 ml Output Total 350 ml 1050 ml 600 ml 2050 ml Balance 130 ml 1450 ml 350 ml -130 ml Intake Oral 480 ml 1500 ml 100 ml 1920 ml IV Total 1000 ml 850 ml Output Urine Total 350 ml 1050 ml 600 ml 2050 ml # Bowel Movements 0 0 0 0 Result Diagram: 10/27/1738 10/27/17 05 Imaging Last Impressions Chest X-Ray 10/16/17 0600 Signed Impressions: Service Date/Time: Monday, October 16, 2017 03:58 - CONCLUSION: 1. Left lower lobe consolidation. 2. ET and central line tips in good position. Lawrence Raya MD Catheter Placement X-Ray 10/15/17 0000 Signed Impressions: Service Date/Time: Sunday, October 15, 2017 17:46 - CONCLUSION: Uncomplicated line placement as above. Pb Orosco MD Abdomen Arteriogram 10/15/17 0000 Signed Impressions: Service Date/Time: Sunday, October 15, 2017 17:46 - CONCLUSION: 1. Limited anatomic visualization due to severe respiratory motion artifact. 2. Hemoclips are identified in the expected distribution of the GDA. As the patient was reportedly actively bleeding by GI and patient's systolic blood pressure was in the 80s on presentation to the interventional department, empiric embolization was performed of the GDA. Pressures at the termination of the procedure were approximately 110 systolic. Pb Orosco MD Abdomen X-Ray 10/10/17 0000 Signed Impressions: Service Date/Time: Tuesday, October 10, 2017 15:26 - CONCLUSION: 1. Findings of mild small bowel ileus in the lower quadrant. Constantino Hagen MD Abdomen/Pelvis CT 10/07/172052 Signed Impressions: Service Date/Time: Saturday, October 07, 2017 21:19 - CONCLUSION: 1. No acute abnormality seen. 2. Colonic diverticula. Cruz Guadarrama MD Procedures s/p debridement and irrigation with graft placement DOS: 10/25/17 Other Results Microbiology Date/Time Source Procedure Growth Status 10/10/17 15:45 Wound Leg Gram Stain - Final Complete 10/10/17 15:45 Wound Culture - Final Escherichia Coli Proteus Mirabilis Complete Objective Remarks Lower extremity physical exam: Vascular: Dorsalis pedis diminished, posterior tibial diminished. Capillary refill time within normal limits to digits 5 bilateral foot. Edema present left lower extremity, improvement noted Neuro: Gross sensation intact to bilateral lower extremity. Pinpoint sensation intact. No hyperalgesia noted to bilateral lower extremity. Extreme pain noted to posterior calf upon dressing change, less pain noted and reported after graft placement. Dermatology: Normal temperature and turgor to bilateral lower extremity. Left posterior calf ulceration encompassing 50% of calf with granular base and rolled epithelialized borders noted. Graft taking well. No signs of infection noted. Musculoskeletal: Tender to palpation to left posterior calf. Medications and IVs Current Medications Medications (Trade) Dose Ordered Sig/Stan Route Start Time Stop Time Status Last Admin (Isordil) 20 mg TID PO 10/08/17 09:00 10/27/17 17:21 (NS Flush) 2 ml UNSCH PRN IV FLUSH 10/07/17 23:00 10/11/17 06:14 (NS Flush) 2 ml BID IV FLUSH 10/08/17 09:00 10/27/17 09:00 (Tylenol) 650 mg Q4H PRN PO 10/07/17 23:00 10/17/17 14:26 (Zofran Inj) 4 mg Q6H PRN IVP 10/07/17 23:00 10/21/17 14:13 (Narcan Inj) 0.4 mg UNSCH PRN IV PUSH 10/07/17 23:00 (Alyssa-Colace) 1 tab BID PO 10/08/17 09:00 10/26/17 10:03 (Milk Of Magnesia Liq) 30 ml Q12H PRN PO 10/07/17 23:00 (Senokot) 17.2 mg Q12H PRN PO 10/07/17 23:00 (Dulcolax Supp) 10 mg DAILY PRN RECTAL 10/07/17 23:00 (Lactulose Liq) 30 ml DAILY PRN PO 10/07/17 23:00 Miscellaneous Information Patient in critical care unit? Ass... [id number] .XX 10/08/17 00:30 (Morphine Inj) 2 mg Q2H PRN IV 10/08/17 00:45 10/27/17 17:59 (Catapres) 0.1 mg Q4H PRN PO 10/08/17 09:00 10/26/17 16:58 (Benadryl Inj) 25 mg Q6H PRN IV 10/08/17 20:00 10/22/17 14:42 (Lopressor) 50 mg Q12HR PO 10/10/17 21:00 10/27/17 09:31 (Vitamin D3) 5,000 units DAILY PO 10/11/17 09:00 10/27/17 09:31 (Santyl Oint) 1 applic DAILY TOPICAL 10/11/17 16:00 10/23/17 09:00 (Apresoline) 100 mg Q8HR PO 10/14/17 14:00 10/27/17 14:59 (Procardia Xl) 60 mg Q12HR PO 10/14/17 17:45 10/27/17 09:31 (Protonix Inj) 40 mg Q12HR IV PUSH 10/15/17 12:45 10/27/17 09:32 (NS Flush) UNSCH PRN IV FLUSH 10/15/17 18:45 (Heparin Inj) UNSCH PRN IV FLUSH 10/15/17 18:45 (Peridex 0.12% Liq) 15 ml BID@08,20 MT 10/15/17 20:00 10/16/17 08:55 (Duoneb Neb) 1 ampule Q2HR NEB PRN INH 10/15/17 19:15 ([place] 10-325 Mg) 1 tab Q4H PRN PO 10/20/17 11:00 10/27/17 16:09 (NS Flush) 2 ml UNSCH PRN IV FLUSH 10/25/17 15:00 (Catapres) 0.1 mg Q12HR PO 10/27/17 10:15 10/27/17 12:09 Potassium Chloride/Sodium Chloride 1,000 ml @ 84 mls/hr [id number] IV 10/27/17 10:15 10/28/17 09:00 10/27/17 12:09 Assessment and Plan Assessment and Plan 46-year-old male posterior calf ulceration status post debridement and irrigation VAC placement performed 10/[address] Loya s/p Debridement and irrigation with graft placement DOS: 10/25/17 Patient examined evaluated with all questions answered Patient will need to stay in house for additional dressing change by surgeon secondary to the pain patient is in upon dressing change Will change dressing Tuesday/Tuesday and recommend discharge after second dressing change Patient will follow up with in 1 week of discharge; Patient to follow up Tuesday if discharge Tuesday for dressing change Teodora Zaidi DPM October 27, 2017 20:19
[2017-10-28] VITALS (9 sets, daily range): BP systolic 113–178; BP diastolic 55–86; PULSE 67–82; RESP 18–22; TEMP 97.4–99.1; O2SAT 94–97
[2017-10-28] MEDS: diphenhydrAMINE HCL 50 MG/ML VIAL IV PRN (02:30)
[2017-10-28] MEDS: hydrALAZINE HCL 100 MG TAB PO SCH ×3 (05:42→21:16)
[2017-10-28] MEDS ORDERED: PILL SPLITTER OTHER PRN (07:00)
[2017-10-28] MEDS: CHLORHEXIDINE 0.12% (ORAL KIT) 15 ML CUP MT SCH ×2 (08:00→20:00)
[2017-10-28] MEDS: SODIUM CHLORIDE 0.9% FLUSH 10 ML FLUSH IV FLUSH SCH ×2 (09:00→21:00)
[2017-10-28] MEDS: COLLAGENASE OINT 30 GM TUBE TOPICAL SCH (09:00)
[2017-10-28] MEDS: DOCUSATE SODIUM 50 MG/SENNA 8.6 MG TAB PO SCH ×2 (09:00→21:00)
[2017-10-28] MEDS: ISOSORBIDE DINITRATE 20 MG TAB PO SCH ×3 (09:18→17:27)
[2017-10-28] MEDS: METOPROLOL TARTRATE 50 MG TAB PO SCH ×2 (09:18→21:15)
[2017-10-28] MEDS: cloNIDine HCL 0.1 MG TAB PO SCH ×2 (09:18→21:15)
[2017-10-28] MEDS: NIFEdipine 60 MG SUSTAINED RELEASE TAB PO SCH ×2 (09:19→21:15)
[2017-10-28] MEDS: CHOLECALCIFEROL (VIT D3) 5000 UNIT CAP PO SCH (09:19)
[2017-10-28] MEDS: PANTOPRAZOLE SODIUM 40 MG VIAL IV PUSH SCH ×2 (09:22→21:15)
[2017-10-28 12:03] LABS: BASOPHIL % 0.9 % (0.0-2.0); EOSINOPHIL # 0.3 TH/MM3 (0-0.4); EOSINOPHIL % 5.1 % (0.0-4.0); HEMATOCRIT 24.3 % (39.0-51.0); HEMOGLOBIN 8.1 GM/DL (13.0-17.0); LYMPH % 14.7 % (9.0-44.0); LYMPHOCYTE # 0.8 TH/MM3 (1.0-4.8); MEAN CELL VOLUME 90.5 FL (80.0-100.0); MEAN CORPUSCULAR HEMOGLOBIN 30.1 PG (27.0-34.0); MEAN CORPUSCULAR HGB CONC 33.2 % (32.0-36.0); MEAN PLATELET VOLUME 8.1 FL (7.0-11.0); MONO % 8.4 % (0.0-8.0); MONOCYTE # 0.5 TH/MM3 (0-0.9); NEUT % 70.9 % (16.0-70.0); PLATELET COUNT 329 TH/MM3 (150-450); RED BLOOD COUNT 2.69 MIL/MM3 (4.50-5.90); RED CELL DISTRIBUTION WIDTH 18.5 % (11.6-17.2); WHITE BLOOD COUNT 5.7 TH/MM3 (4.0-11.0)
[2017-10-28 12:29] LABS: BICARBONATE 24.6 MEQ/L (21.0-32.0); CALCIUM 8.2 MG/DL (8.5-10.1); CREATININE 3.04 MG/DL (0.60-1.30); MAGNESIUM 2.1 MG/DL (1.5-2.5)
--- NOTE | 2017-10-28 13:08 | HHI.NPPN ---
Subjective General Problems: Anemia, Edema, Hypertension Renal Failure: Chronic, Stage IV History of Present Illness 46 year old male with a past medical history of chronic kidney disease stage 4, Hypertension, sleep apnea, chronic left lower extremity leg ulcer, obesity, and CHF. Patient presented to the ED with abdominal pain and maroon stools. He was found to have a hemoglobin of 4.5. His blood pressure is elevated now but per records when EMS arrived he was found to be hypotensive with a SBP in the 80 's. Nephrology is consulted for acute on chronic renal failure with a creatinine of 4.72 and potassium of 5.5. His baseline creatinine is at 2.5 to 3.0 and his special procedure tech is Dr. Florez. Additional Remarks Patient is alert, no SOB, mild foot pain. Review of Systems General Constitutional: Fatigue Respiratory Respiratory Remarks Denies SOB Cardiovascular Cardiac Remarks Denies chest pain Gastrointestinal GI Remarks denies abdominal pain Objective Data Data Vital Signs Date Time Temp Pulse Resp B/P (MAP) Pulse Ox O2 Delivery O2 Flow Rate FiO2 10/28/17 12:00 98.1 68 20 132/67 (88) 96 10/28/17 10:18 96 Room Air 10/28/17 10:18 70 10/28/17 08:00 98.8 78 22 141/86 (104) 96 10/28/17 04:00 98.8 74 18 178/84 (115) 94 10/28/17 04:00 72 10/28/17 00:00 67 10/28/17 00:00 99.0 70 19 142/75 (97) 95 10/27/17 20:00 99.0 79 19 167/89 (115) 95 10/27/17 20:00 79 10/27/17 20:00 Room Air 10/27/17 18:17 93 Room Air 10/27/17 18:17 72 10/27/17 17:39 93 21 10/27/17 16:00 98.3 70 20 140/56 (84) 93 Automatic Cuff -: 10/28/17 1113 10/28/17 1113 Physical Exam General Appearance: Well Nourished, No Acute Distress, Comfortable, Obese Throat Throat Exam: Oral Mucosa [place] & Moist Neck Neck Exam: Neck Supple Pulmonary Resp Exam: Breath Sounds Equal, No Distress, Decreased Bases, Diminished Breath Sounds Cardiology CV Exam: Regular, Normal Sinus Rhythm Gastrointestinal/Abdomen GI Exam: Soft, Non-Tender, Bowel Sounds Present Integumentary Skin Exam: Clear, Warm Extremeties Extremities Exam: Trace Edema (left lower leg with dressing.) Neurologic Neuro Exam: Alert, Awake, Oriented Psychiatric Psych Exam: Appropriate Responses Assessment/Plan Problem List: (1) Acute worsening of stage 4 chronic kidney disease ICD Codes: N28.9 - Disorder of kidney and ureter, unspecified; N18.4 - Chronic kidney disease, stage 4 (severe) Status: Acute Plan: Acute kidney injury with admission creatinine of 4.72 and potassium of 5.5 from most likely hypotension with blood loss and NSAID use. Chronic kidney disease stage 4 from most likely uncontrolled hypertension. His baseline creatinine is at 2.5 to 3.0 and his special procedure tech is Dr. Florez. CT of abdomen is noted to have kidney of normal size and shape. There is no mass, stone or hydronephrosis. GI bleed - urgent embolization with IR yesterday on 10/15 R s/p left calf wound debridement and irrigation with graft placement on 10/25/17 Plan Creatinine with slight improvement today at 3.10 from 3.71 potassium remains normal. Increase yesterday possibly prerenal Fluids encouraged Blood pressure elevated partially pain related will add clonidine BID and monitor Follow renal panel periodically. Avoid Nephrotoxins. Non oliguric, Creatinine is improving. Follow the BMP and urine out put. (2) Sleep apnea ICD Codes: G47.30 - Sleep apnea, unspecified Status: Chronic (3) HTN (hypertension) ICD Codes: I10 - Essential (primary) hypertension Status: Chronic Plan: Will monitor (4) Skin ulcer ICD Codes: L98.499 - Non-pressure chronic ulcer of skin of other sites with unspecified severity Status: Chronic Plan: Dressing on (5) Acute blood loss anemia ICD Codes: D62 - Acute posthemorrhagic anemia Status: Acute Plan: On Protonix Problem Qualifiers (1) Sleep apnea: Qualified Codes: G47.30 - Sleep apnea, unspecified (2) HTN (hypertension): Qualified Codes: I10 - Essential (primary) hypertension (3) Skin ulcer: Qualified Codes: L98.492 - Non-pressure chronic ulcer of skin of other sites with fat layer exposed Aden Block MD October 28, 2017 13:08
[2017-10-28] MEDS: 1/2 NS + KCL 20 MEQ INJ 1,000 ML IV SCH (14:15)
[2017-10-29] VITALS (14 sets, daily range): BP systolic 134–194; BP diastolic 75–111; PULSE 62–75; RESP 18–20; TEMP 98.3–98.9; O2SAT 95–99
[2017-10-29] MEDS: 1/2 NS + KCL 20 MEQ INJ 1,000 ML IV SCH (02:10)
[2017-10-29] MEDS: cloNIDine HCL 0.1 MG TAB PO PRN (04:22)
[2017-10-29] MEDS: hydrALAZINE HCL 100 MG TAB PO SCH ×3 (05:39→21:04)
[2017-10-29 06:05] LABS: BASOPHIL # 0.1 TH/MM3 (0-0.2); EOSINOPHIL # 0.3 TH/MM3 (0-0.4); EOSINOPHIL % 5.1 % (0.0-4.0); HEMATOCRIT 25.1 % (39.0-51.0); HEMOGLOBIN 8.3 GM/DL (13.0-17.0); LYMPH % 18.7 % (9.0-44.0); LYMPHOCYTE # 1.1 TH/MM3 (1.0-4.8); MEAN CELL VOLUME 90.1 FL (80.0-100.0); MEAN CORPUSCULAR HEMOGLOBIN 29.7 PG (27.0-34.0); MEAN CORPUSCULAR HGB CONC 32.9 % (32.0-36.0); MEAN PLATELET VOLUME 8.1 FL (7.0-11.0); MONO % 9.5 % (0.0-8.0); MONOCYTE # 0.6 TH/MM3 (0-0.9); NEUT % 65.7 % (16.0-70.0); PLATELET COUNT 297 TH/MM3 (150-450); RED BLOOD COUNT 2.79 MIL/MM3 (4.50-5.90); RED CELL DISTRIBUTION WIDTH 18.4 % (11.6-17.2)
[2017-10-29 06:31] LABS: BICARBONATE 24.4 MEQ/L (21.0-32.0); CALCIUM 7.9 MG/DL (8.5-10.1); CREATININE 2.92 MG/DL (0.60-1.30)
[2017-10-29] MEDS: CHLORHEXIDINE 0.12% (ORAL KIT) 15 ML CUP MT SCH ×2 (08:00→20:00)
[2017-10-29] MEDS: DOCUSATE SODIUM 50 MG/SENNA 8.6 MG TAB PO SCH ×2 (09:00→21:04)
[2017-10-29] MEDS: COLLAGENASE OINT 30 GM TUBE TOPICAL SCH (09:00)
[2017-10-29] MEDS: NIFEdipine 60 MG SUSTAINED RELEASE TAB PO SCH ×2 (09:14→21:04)
[2017-10-29] MEDS: CHOLECALCIFEROL (VIT D3) 5000 UNIT CAP PO SCH (09:15)
[2017-10-29] MEDS: SODIUM CHLORIDE 0.9% FLUSH 10 ML FLUSH IV FLUSH SCH ×2 (09:15→21:04)
[2017-10-29] MEDS: PANTOPRAZOLE SODIUM 40 MG VIAL IV PUSH SCH ×2 (09:15→21:04)
[2017-10-29] MEDS: cloNIDine HCL 0.1 MG TAB PO SCH ×2 (09:15→21:04)
[2017-10-29] MEDS: METOPROLOL TARTRATE 50 MG TAB PO SCH ×2 (09:15→21:04)
[2017-10-29] MEDS: ISOSORBIDE DINITRATE 20 MG TAB PO SCH ×3 (09:15→17:01)
[2017-10-29] MEDS: ACETAMINOPHEN/HYDROcodone 325 MG/10 MG TAB PO PRN ×2 (10:34→14:29)
--- NOTE | 2017-10-29 10:36 | HHI.PR ---
Subjective Remarks LATE ENTRY FOR 10/28/17 NOTE FROM 10/28/17 DID NOT SAVE IN [employer]. Pt with NO new complaints. Objective Vitals Vital Signs Date Time Temp Pulse Resp B/P (MAP) Pulse Ox O2 Delivery O2 Flow Rate FiO2 10/29/17 08:00 98.6 70 20 153/76 (101) 96 10/29/17 04:01 63 10/29/17 04:00 98.6 69 18 194/111 (138) 99 168/98 (121) 10/29/17 04:00 Room Air 10/29/17 00:10 139/87 (104) Manual Cuff/Auscultation 10/29/17 00:07 68 10/29/17 00:06 Room Air 10/29/17 00:06 98.9 72 18 177/91 (119) 96 10/28/17 20:00 99.1 73 18 113/55 (74) 96 10/28/17 20:00 82 10/28/17 20:00 Room Air 10/28/17 18:11 70 10/28/17 18:11 97 Room Air 10/28/17 16:00 97.4 69 20 136/71 (92) 97 10/28/17 13:54 96 Room Air 10/28/17 13:54 72 10/28/17 12:00 98.1 68 20 132/67 (88) 96 Result Diagram: 10/29/17 0522 10/29/17 0522 Imaging Last Impressions Chest X-Ray 10/16/17 0600 Signed Impressions: Service Date/Time: Monday, October 16, 2017 03:58 - CONCLUSION: 1. Left lower lobe consolidation. 2. ET and central line tips in good position. Lawrence Raya MD Catheter Placement X-Ray 10/15/17 0000 Signed Impressions: Service Date/Time: Sunday, October 15, 2017 17:46 - CONCLUSION: Uncomplicated line placement as above. Pb Orosco MD Abdomen Arteriogram 10/15/17 0000 Signed Impressions: Service Date/Time: Sunday, October 15, 2017 17:46 - CONCLUSION: 1. Limited anatomic visualization due to severe respiratory motion artifact. 2. Hemoclips are identified in the expected distribution of the GDA. As the patient was reportedly actively bleeding by GI and patient's systolic blood pressure was in the 80s on presentation to the interventional department, empiric embolization was performed of the GDA. Pressures at the termination of the procedure were approximately 110 systolic. Pb Orosco MD Abdomen X-Ray 10/10/17 0000 Signed Impressions: Service Date/Time: Tuesday, October 10, 2017 15:26 - CONCLUSION: 1. Findings of mild small bowel ileus in the lower quadrant. Constantino Hagen MD Abdomen/Pelvis CT 10/07/172052 Signed Impressions: Service Date/Time: Saturday, October 07, 2017 21:19 - CONCLUSION: 1. No acute abnormality seen. 2. Colonic diverticula. Cruz Guadarrama MD Objective Remarks GENERAL: This is a well-nourished, well-developed patient, in no apparent distress. CARDIOVASCULAR: Regular rate and rhythm without murmurs, gallops, or rubs. RESPIRATORY: Clear to auscultation. Breath sounds equal bilaterally. No wheezes , rales, or rhonchi. GASTROINTESTINAL: Abdomen soft, non-tender, nondistended. Normal active bowel sounds MUSCULOSKELETAL: LLE bandaged NEURO: Alert & Oriented x4 to person, place, time, situation. Moves all ext x4 Procedures - s/p EGD (10/08). Pt found to have gastric ulcers. Pt underwent epi/clip - s/p debridement and wound vac placement (10/13) - Pt underwent Left calf wound debridement and irrigation with graft placement ( NEOX wound allograft) on 10/25/[address] Zaidi (10/25) A/P Problem List: (1) Acute blood loss anemia ICD Codes: D62 - Acute posthemorrhagic anemia Status: Acute Plan: - Acute GIB, acute blood loss anemia/symptomatic. - Pt was reportedly using goody powder. - H/H on admission 4.5/13.8. - EGD (10/08) --> Gastritis with gastric ulcer with visible vessel- Endoclipping with epi injection. - EGD (10/15) for significant drop in H/H overnight --> Esophagus normal. Stomach with residual food, active bleeding most likely either the antrum or pyloric channel injection of epinephrine. - Angiogram with embolization (10/15) --> Limited anatomic visualization due to severe respiratory motion artifact. Hemoclips are identified in the expected distribution of the GDA. As the patient was reportedly actively bleeding by GI and patient's systolic blood pressure was in the 80s on presentation to the interventional department, empiric embolization was performed of the GDA. Pressures at the termination of the procedure were approximately 110 systolic. - Pt has received 12 units PRBCs during admission - H/H has been stable over the past few days with Hgb in the 7's - He is tolerating solid foods - No evidence of ongoing bleeding. - Transfuse if symptomatic with exertion prn - PPI BID - PT daily. - Pt given Epogen (10/26). - Hg 7.5 (10/26), 8.1 (10/27), 8.1 (10/28) - repeat CBC in AM (2) GI bleed ICD Codes: K92.2 - Gastrointestinal hemorrhage, unspecified Status: Acute Plan: - see above (3) Acute worsening of stage 4 chronic kidney disease ICD Codes: N28.9 - Disorder of kidney and ureter, unspecified; N18.4 - Chronic kidney disease, stage 4 (severe) Status: Acute Plan: - a/ckd 4 - comgmt with Nephrology, Dr. Block - Cr/GFR continues to improve - Cr/GFR continue to improve - Cr 4.7 (10/07), 2.84 (10/23), 2.67 (10/25), 3.71 (10/26), 3.14 (10/27), 3.04 (10/28) - GFR 16 (10/07), 29 (10/23), 31 (10/25), 21 (10/26), 26 (10/27), 27 (10/27) - continue IVFs - repeat BMP in AM (4) Skin ulcer ICD Codes: L98.499 - Non-pressure chronic ulcer of skin of other sites with unspecified severity Status: Chronic Plan: - case d/w Dr. Zuri Loya (10/10). - santyl - wound culture (10/10) --> E coli and Proteus mirabilis resistant to Levaquin - will DC ciprofloxacin/doxycycline - Rocephin - Vascular Surgery Consult requested. Case d/w Dr. Victor. - obtain segmental Doppler study reviewed conclusion: Normal CURT and TBI on the right. Abnormal TBI on the left. Multiple segments that could not be occluded in the left lower extremity possibly representing severely calcified vessels. CURT could not be calculated. As the patient is symptomatic in the left lower extremity, CTA abdomen with run off recommended. - Pt underwent left leg debridement and wound vac placement on 10/13/[address] Loya. - Pt underwent Left calf wound debridement and irrigation with graft placement ( NEOX wound allograft) on 10/25/[address] Zaidi (10/25) - Dressing changed by Dr. Zaidi (10/27) - graft appeared viable/healing - pt painful with dressing change - Continue hospitalization for dressing change with IV pain medication in 48 hours (5) Sleep apnea ICD Codes: G47.30 - Sleep apnea, unspecified Status: Chronic Plan: - Pt will need re-evaluation with polysomnogram outpt. - continue CPAP (6) HTN (hypertension) ICD Codes: I10 - Essential (primary) hypertension Status: Chronic Plan: - Pt is currently on Metoprolol 50mg Q12H --> increase to 75mg BID - Hydralazine 100mg Q8H, - Procardia XL 60mg Q12H, Isordil 20mg TID - Pt started on catapress 0.1mg BID per Nephrology - Observe Problem Qualifiers (1) GI bleed: Qualified Codes: K92.2 - Gastrointestinal hemorrhage, unspecified (2) Skin ulcer: Qualified Codes: L98.492 - Non-pressure chronic ulcer of skin of other sites with fat layer exposed (3) Sleep apnea: Qualified Codes: G47.30 - Sleep apnea, unspecified (4) HTN (hypertension): Qualified Codes: I10 - Essential (primary) hypertension González Tierney DO October 29, 2017 10:36
--- NOTE | 2017-10-29 11:08 | PD.POD ---
Subjective Podiatric Problems Left ankle ulcer with Neox wound graft placed by . Pt complains of severe pain before dressing change began. He denies any n/v/f/h/c/sob. Pain score: 7 Past Med/Surg/Social History Social History Smoking Status: Never Smoker Objective Vital Signs Vital Signs Date Time Temp Pulse Resp B/P (MAP) Pulse Ox O2 Delivery O2 Flow Rate FiO2 10/29/17 08:00 98.6 70 20 153/76 (101) 96 10/29/17 04:01 63 10/29/17 04:00 98.6 69 18 194/111 (138) 99 168/98 (121) 10/29/17 04:00 Room Air 10/29/17 00:10 139/87 (104) Manual Cuff/Auscultation 10/29/17 00:07 68 10/29/17 00:06 Room Air 10/29/17 00:06 98.9 72 18 177/91 (119) 96 10/28/17 20:00 99.1 73 18 113/55 (74) 96 10/28/17 20:00 82 10/28/17 20:00 Room Air 10/28/17 18:11 70 10/28/17 18:11 97 Room Air 10/28/17 16:00 97.4 69 20 136/71 (92) 97 10/28/17 13:54 96 Room Air 10/28/17 13:54 72 10/28/17 12:00 98.1 68 20 132/67 (88) 96 Coded Allergies: No Known Allergies (Verified Allergy, Unknown, 10/07/17) Uncoded Allergies: nka (Allergy, Unknown, 02/26/03) Exam-Podiatry Remarks No changes from previous exam, left leg wound appears very granular with no signs of infection Assessment & Plan A/P 1) left leg extensive arterial ulcer, s/p debridement with and grafting with -pt is ok to d/c from podiatry standpoint -f/u with 5-7 days after d/c -dressing changes M/W/F with adaptic and abd pads as previously noted, next change would be Tuesday, changed today by Zuri Alanis DPM October 29, 2017 11:08
--- NOTE | 2017-10-29 12:31 | HHI.NPPN ---
Subjective General Problems: Anemia, Edema, Hypertension Renal Failure: Chronic, Stage IV History of Present Illness 46 year old male with a past medical history of chronic kidney disease stage 4, Hypertension, sleep apnea, chronic left lower extremity leg ulcer, obesity, and CHF. Patient presented to the ED with abdominal pain and maroon stools. He was found to have a hemoglobin of 4.5. His blood pressure is elevated now but per records when EMS arrived he was found to be hypotensive with a SBP in the 80 's. Nephrology is consulted for acute on chronic renal failure with a creatinine of 4.72 and potassium of 5.5. His baseline creatinine is at 2.5 to 3.0 and his organic section technical lead is Dr. Florez. Additional Remarks Patient is sleeping no complaints (Zehra Dela Cruz) Review of Systems General Constitutional: Fatigue (Zehra Dela Cruz) Respiratory Respiratory Remarks Denies SOB (Zehra Dela Cruz) Cardiovascular Cardiac Remarks Denies chest pain (Zehra Dela Cruz) Gastrointestinal GI Remarks denies abdominal pain (Zehra Dela Cruz) Objective Data Data Vital Signs Date Time Temp Pulse Resp B/P (MAP) Pulse Ox O2 Delivery O2 Flow Rate FiO2 10/29/17 08:00 98.6 70 20 153/76 (101) 96 10/29/17 08:00 Room Air 10/29/17 04:01 63 10/29/17 04:00 98.6 69 18 194/111 (138) 99 168/98 (121) 10/29/17 04:00 Room Air 10/29/17 00:10 139/87 (104) Manual Cuff/Auscultation 10/29/17 00:07 68 10/29/17 00:06 Room Air 10/29/17 00:06 98.9 72 18 177/91 (119) 96 10/28/17 20:00 99.1 73 18 113/55 (74) 96 10/28/17 20:00 82 10/28/17 20:00 Room Air 10/28/17 18:11 70 10/28/17 18:11 97 Room Air 10/28/17 16:00 97.4 69 20 136/71 (92) 97 10/28/17 13:54 96 Room Air 10/28/17 13:54 72 (Zehra Dela Cruz) -: 10/29/17 0522 10/29/17 0522 Physical Exam General Appearance: Well Nourished, No Acute Distress, Comfortable, Obese (Zehra Dela Cruz) Throat Throat Exam: Oral Mucosa [place] & Moist (Zehra Dela Cruz) Neck Neck Exam: Neck Supple (Zehra Dela Cruz) Pulmonary Resp Exam: Breath Sounds Equal, No Distress, Decreased Bases, Diminished Breath Sounds (Zehra Dela Cruz) Cardiology CV Exam: Regular, Normal Sinus Rhythm (Zehra Dela Cruz) Gastrointestinal/Abdomen GI Exam: Soft, Non-Tender, Bowel Sounds Present GI Remarks large (Zehra Dela Cruz) Integumentary Skin Exam: Clear, Warm Skin Remarks NAKIA wrap to left leg (Zehra Dela Cruz) Extremeties Extremities Exam: Trace Edema (left lower leg with dressing.) (Zehra Dela Cruz) Neurologic Neuro Exam: Alert, Awake, Oriented (Zehra Dela Cruz) Psychiatric Psych Exam: Appropriate Responses (Zehra Dela Cruz) Assessment/Plan Problem List: (1) Acute worsening of stage 4 chronic kidney disease ICD Codes: N28.9 - Disorder of kidney and ureter, unspecified; N18.4 - Chronic kidney disease, stage 4 (severe) Status: Acute Plan: Acute kidney injury with admission creatinine of 4.72 and potassium of 5.5 from most likely hypotension with blood loss and NSAID use. Chronic kidney disease stage 4 from most likely uncontrolled hypertension. His baseline creatinine is at 2.5 to 3.0 and his organic section technical lead is Dr. Florez. CT of abdomen is noted to have kidney of normal size and shape. There is no mass, stone or hydronephrosis. GI bleed - urgent embolization with IR yesterday on 10/15 R s/p left calf wound debridement and irrigation with graft placement on 10/25/17 Plan Creatinine improving at 2.92 from 3.04 today at baseline Fluids encouraged Avoid Nephrotoxins. Non oliguric Follow the BMP and urine out put. (2) Sleep apnea ICD Codes: G47.30 - Sleep apnea, unspecified Status: Chronic (3) HTN (hypertension) ICD Codes: I10 - Essential (primary) hypertension Status: Chronic Plan: Will monitor (4) Skin ulcer ICD Codes: L98.499 - Non-pressure chronic ulcer of skin of other sites with unspecified severity Status: Chronic Plan: Dressing on (5) Acute blood loss anemia ICD Codes: D62 - Acute posthemorrhagic anemia Status: Acute Plan: On Protonix (Zehra Dela Cruz) Problem List: (1) Acute worsening of stage 4 chronic kidney disease ICD Codes: N28.9 - Disorder of kidney and ureter, unspecified; N18.4 - Chronic kidney disease, stage 4 (severe) Status: Acute Plan: Acute kidney injury with admission creatinine of 4.72 and potassium of 5.5 from most likely hypotension with blood loss and NSAID use. Chronic kidney disease stage 4 from most likely uncontrolled hypertension. His baseline creatinine is at 2.5 to 3.0 and his organic section technical lead is Dr. Florez. CT of abdomen is noted to have kidney of normal size and shape. There is no mass, stone or hydronephrosis. GI bleed - urgent embolization with IR yesterday on 10/15 R s/p left calf wound debridement and irrigation with graft placement on 10/25/17 Plan Creatinine improving at 2.92 from 3.04 today at baseline Fluids encouraged Avoid Nephrotoxins. Non oliguric Follow the BMP and urine out put. Patient seen and examined, agree with above, Creatinine is stable. (2) Sleep apnea ICD Codes: G47.30 - Sleep apnea, unspecified Status: Chronic (3) HTN (hypertension) ICD Codes: I10 - Essential (primary) hypertension Status: Chronic Plan: Will monitor (4) Skin ulcer ICD Codes: L98.499 - Non-pressure chronic ulcer of skin of other sites with unspecified severity Status: Chronic Plan: Dressing on (5) Acute blood loss anemia ICD Codes: D62 - Acute posthemorrhagic anemia Status: Acute Plan: On Protonix (Aden Block MD) Problem Qualifiers (1) Sleep apnea: Qualified Codes: G47.30 - Sleep apnea, unspecified (2) HTN (hypertension): Qualified Codes: I10 - Essential (primary) hypertension (3) Skin ulcer: Qualified Codes: L98.492 - Non-pressure chronic ulcer of skin of other sites with fat layer exposed Zehra Dela Cruz October 29, 2017 12:31 Aden Block MD October 29, 2017 18:45
--- NOTE | 2017-10-29 17:07 | HHI.PR ---
Subjective Remarks No new complaints. Objective Vitals Vital Signs Date Time Temp Pulse Resp B/P (MAP) Pulse Ox O2 Delivery O2 Flow Rate FiO2 10/29/17 16:00 Room Air 10/29/17 16:00 98.4 65 20 136/84 (101) 95 10/29/17 12:00 Room Air 10/29/17 12:00 98.3 63 20 149/75 (99) 97 10/29/17 08:00 98.6 70 20 153/76 (101) 96 10/29/17 08:00 Room Air 10/29/17 04:01 63 10/29/17 04:00 98.6 69 18 194/111 (138) 99 168/98 (121) 10/29/17 04:00 Room Air 10/29/17 00:10 139/87 (104) Manual Cuff/Auscultation 10/29/17 00:07 68 10/29/17 00:06 Room Air 10/29/17 00:06 98.9 72 18 177/91 (119) 96 10/28/17 20:00 99.1 73 18 113/55 (74) 96 10/28/17 20:00 82 10/28/17 20:00 Room Air 10/28/17 18:11 70 10/28/17 18:11 97 Room Air Result Diagram: 10/29/17 0510/29/17 0522 Imaging Last Impressions Chest X-Ray 10/16/17 0600 Signed Impressions: Service Date/Time: Monday, October 16, 2017 03:58 - CONCLUSION: 1. Left lower lobe consolidation. 2. ET and central line tips in good position. Lawrence Raya MD Catheter Placement X-Ray 10/15/17 0000 Signed Impressions: Service Date/Time: Sunday, October 15, 2017 17:46 - CONCLUSION: Uncomplicated line placement as above. Pb Orosco MD Abdomen Arteriogram 10/15/17 0000 Signed Impressions: Service Date/Time: Sunday, October 15, 2017 17:46 - CONCLUSION: 1. Limited anatomic visualization due to severe respiratory motion artifact. 2. Hemoclips are identified in the expected distribution of the GDA. As the patient was reportedly actively bleeding by GI and patient's systolic blood pressure was in the 80s on presentation to the interventional department, empiric embolization was performed of the GDA. Pressures at the termination of the procedure were approximately 110 systolic. Pb Orosco MD Abdomen X-Ray 10/10/17 0000 Signed Impressions: Service Date/Time: Tuesday, October 10, 2017 15:26 - CONCLUSION: 1. Findings of mild small bowel ileus in the lower quadrant. Constantino Hagen MD Abdomen/Pelvis CT [id number]/[id number] Signed Impressions: Service Date/Time: Saturday, October 07, 2017 21:19 - CONCLUSION: 1. No acute abnormality seen. 2. Colonic diverticula. Cruz Guadarrama MD Objective Remarks GENERAL: This is a well-nourished, well-developed patient, in no apparent distress. CARDIOVASCULAR: Regular rate and rhythm without murmurs, gallops, or rubs. RESPIRATORY: Clear to auscultation. Breath sounds equal bilaterally. No wheezes , rales, or rhonchi. GASTROINTESTINAL: Abdomen soft, non-tender, nondistended. Normal active bowel sounds MUSCULOSKELETAL: LLE bandaged NEURO: Alert & Oriented x4 to person, place, time, situation. Moves all ext x4 Procedures - s/p EGD (10/08). Pt found to have gastric ulcers. Pt underwent epi/clip - s/p debridement and wound vac placement (10/13) - Pt underwent Left calf wound debridement and irrigation with graft placement ( NEOX wound allograft) on 10/25/[address] Zaidi (10/25) A/P Problem List: (1) Acute blood loss anemia ICD Codes: D62 - Acute posthemorrhagic anemia Status: Acute Plan: - Acute GIB, acute blood loss anemia/symptomatic. - Pt was reportedly using goody powder. - H/H on admission 4.5/13.8. - EGD (10/08) --> Gastritis with gastric ulcer with visible vessel- Endoclipping with epi injection. - EGD (10/15) for significant drop in H/H overnight --> Esophagus normal. Stomach with residual food, active bleeding most likely either the antrum or pyloric channel injection of epinephrine. - Angiogram with embolization (10/15) --> Limited anatomic visualization due to severe respiratory motion artifact. Hemoclips are identified in the expected distribution of the GDA. As the patient was reportedly actively bleeding by GI and patient's systolic blood pressure was in the 80s on presentation to the interventional department, empiric embolization was performed of the GDA. Pressures at the termination of the procedure were approximately 110 systolic. - Pt has received 12 units PRBCs during admission - He is tolerating solid foods - No evidence of ongoing bleeding. - Transfuse if symptomatic with exertion prn - PPI BID - PT daily. - Pt given Epogen (10/26). - Hg 7.5 (10/26), 8.1 (10/27), 8.1 (10/28), 8.3 (10/29/17) - repeat CBC in AM (2) GI bleed ICD Codes: K92.2 - Gastrointestinal hemorrhage, unspecified Status: Acute Plan: - see above (3) Acute worsening of stage 4 chronic kidney disease ICD Codes: N28.9 - Disorder of kidney and ureter, unspecified; N18.4 - Chronic kidney disease, stage 4 (severe) Status: Acute Plan: - a/ckd 4 - comgmt with Nephrology, Dr. Block - Cr/GFR continues to improve - Cr/GFR continue to improve - Cr 4.7 (10/07), 2.84 (10/23), 2.67 (10/25), 3.71 (10/26), 3.14 (10/27), 3.04 (10/28), 2.92 (10/29) - GFR 16 (10/07), 29 (10/23), 31 (10/25), 21 (10/26), 26 (10/27), 27 (10/27) - continue IVFs - repeat BMP in AM (4) Skin ulcer ICD Codes: L98.499 - Non-pressure chronic ulcer of skin of other sites with unspecified severity Status: Chronic Plan: - case d/w Dr. Zuri Loya (10/10). - santyl - wound culture (10/10) --> E coli and Proteus mirabilis resistant to Levaquin - will DC ciprofloxacin/doxycycline - Rocephin - Vascular Surgery Consult requested. Case d/w Dr. Victor. - obtain segmental Doppler study reviewed conclusion: Normal CURT and TBI on the right. Abnormal TBI on the left. Multiple segments that could not be occluded in the left lower extremity possibly representing severely calcified vessels. CURT could not be calculated. As the patient is symptomatic in the left lower extremity, CTA abdomen with run off recommended. - Pt underwent left leg debridement and wound vac placement on 10/13/[address] Loya. - Pt underwent Left calf wound debridement and irrigation with graft placement ( NEOX wound allograft) on 10/25/[address] Zaidi (10/25) - Dressing changed by Dr. Zaidi (10/27) - graft appeared viable/healing - pt painful with dressing change - Case d/w Dr. Loya (10/29). Graft doing well - anticipate d/c to SNF 10/31 - Pt to f/u at Dr. Zaidi's office for next dressing change. (5) Sleep apnea ICD Codes: G47.30 - Sleep apnea, unspecified Status: Chronic Plan: - Pt will need re-evaluation with polysomnogram outpt. - continue CPAP (6) HTN (hypertension) ICD Codes: I10 - Essential (primary) hypertension Status: Chronic Plan: - Pt is currently on Metoprolol 50mg Q12H --> increase to 75mg BID - Hydralazine 100mg Q8H, - Procardia XL 60mg Q12H, Isordil 20mg TID - Pt started on catapress 0.1mg BID per Nephrology - Observe Problem Qualifiers (1) GI bleed: Qualified Codes: K92.2 - Gastrointestinal hemorrhage, unspecified (2) Skin ulcer: Qualified Codes: L98.492 - Non-pressure chronic ulcer of skin of other sites with fat layer exposed (3) Sleep apnea: Qualified Codes: G47.30 - Sleep apnea, unspecified (4) HTN (hypertension): Qualified Codes: I10 - Essential (primary) hypertension González Tierney DO October 29, 2017 17:07
--- NOTE | 2017-10-29 17:53 | RADRPT ---
EXAM DATE/TIME: 10/29/2017 17:19 [facility] COMPARISON: CHEST SINGLE AP, October 16, 2017, 3:58. INDICATIONS : Shortness of breath. Cough. MEDICAL HISTORY : Cardiovascular disease. Hypertension. SURGICAL HISTORY : Abdominal aortic aneurysm repair. ENCOUNTER: Initial ACUITY: 1 day PAIN SCORE: 1/10 LOCATION: Bilateral chest FINDINGS: There continues to be an infiltrate in the left lung base. Otherwise the lungs are grossly clear. No new infiltrates are seen compared to the prior study. The endotracheal tube has been removed. No pneu mothorax. The heart size is stable. CONCLUSION: Left lower lung infiltrate. Otherwise stable exam compared to the prior study. Dutch Hector MD on October 29, 2017 at 17:50 Board Certified Radiologist. This report was verified electronically.
[2017-10-30] VITALS (10 sets, daily range): BP systolic 133–151; BP diastolic 62–85; PULSE 64–75; RESP 18–20; TEMP 97.6–98.8; O2SAT 94–98
[2017-10-30] MEDS: hydrALAZINE HCL 100 MG TAB PO SCH ×3 (05:48→20:37)
[2017-10-30] MEDS: CHLORHEXIDINE 0.12% (ORAL KIT) 15 ML CUP MT SCH ×2 (08:00→20:00)
[2017-10-30 08:14] LABS: BICARBONATE 26.4 MEQ/L (21.0-32.0); CALCIUM 8.2 MG/DL (8.5-10.1); CREATININE 2.84 MG/DL (0.60-1.30)
[2017-10-30] MEDS: COLLAGENASE OINT 30 GM TUBE TOPICAL SCH (08:51)
[2017-10-30] MEDS: DOCUSATE SODIUM 50 MG/SENNA 8.6 MG TAB PO SCH ×2 (08:59→20:37)
[2017-10-30] MEDS: SODIUM CHLORIDE 0.9% FLUSH 10 ML FLUSH IV FLUSH SCH ×2 (09:00→20:38)
[2017-10-30] MEDS: ISOSORBIDE DINITRATE 20 MG TAB PO SCH ×3 (09:00→19:16)
[2017-10-30] MEDS: cloNIDine HCL 0.1 MG TAB PO SCH ×2 (09:00→20:37)
[2017-10-30] MEDS: NIFEdipine 60 MG SUSTAINED RELEASE TAB PO SCH ×2 (09:00→20:37)
[2017-10-30] MEDS: PANTOPRAZOLE SODIUM 40 MG VIAL IV PUSH SCH ×2 (09:00→20:37)
[2017-10-30] MEDS: METOPROLOL TARTRATE 50 MG TAB PO SCH ×2 (09:00→20:37)
[2017-10-30] MEDS: CHOLECALCIFEROL (VIT D3) 5000 UNIT CAP PO SCH (09:00)
--- NOTE | 2017-10-30 12:05 | HHI.NPPN ---
Subjective General Problems: Anemia, Edema, Hypertension Renal Failure: Chronic, Stage IV History of Present Illness 46 year old male with a past medical history of chronic kidney disease stage 4, Hypertension, sleep apnea, chronic left lower extremity leg ulcer, obesity, and CHF. Patient presented to the ED with abdominal pain and maroon stools. He was found to have a hemoglobin of 4.5. His blood pressure is elevated now but per records when EMS arrived he was found to be hypotensive with a SBP in the 80 's. Nephrology is consulted for acute on chronic renal failure with a creatinine of 4.72 and potassium of 5.5. His baseline creatinine is at 2.5 to 3.0 and his driller brake lining is Dr. Florez. Additional Remarks Patient resting with no complaints. (Zehra Dela Cruz) Review of Systems General Constitutional: Fatigue (Zehra Dela Cruz) Respiratory Respiratory Remarks Denies SOB (Zehra Dela Cruz) Cardiovascular Cardiac Remarks Denies chest pain (Zehra Dela Cruz) Gastrointestinal GI Remarks denies abdominal pain (Zehra Dela Cruz) Objective Data Data Vital Signs Date Time Temp Pulse Resp B/P (MAP) Pulse Ox O2 Delivery O2 Flow Rate FiO2 10/30/17 08:00 98.8 75 18 151/71 (97) 95 10/30/17 08:00 Room Air 10/30/17 04:16 68 10/30/17 04:00 97.6 73 20 144/80 (101) 94 10/30/17 04:00 Room Air 10/30/17 00:00 98.0 64 19 142/74 (96) 97 10/30/17 00:00 Room Air 10/29/17 23:58 62 10/29/17 20:34 67 10/29/17 20:00 98.9 65 20 134/77 (96) 95 10/29/17 20:00 Room Air 10/29/17 16:00 Room Air 10/29/17 16:00 98.4 65 20 136/84 (101) 95 10/29/17 15:30 69 (Zehra Dela Cruz) -: 10/29/17 0522 10/30/17 0702 Imaging Last Impressions Chest X-Ray 10/29/17 0000 Signed Impressions: Service Date/Time: Sunday, October 29, 2017 17:19 - CONCLUSION: Left lower lung infiltrate. Otherwise stable exam compared to the prior study. Dutch Hector MD Catheter Placement X-Ray 10/15/17 0000 Signed Impressions: Service Date/Time: Sunday, October 15, 2017 17:46 - CONCLUSION: Uncomplicated line placement as above. Pb Orosco MD Abdomen Arteriogram 10/15/17 0000 Signed Impressions: Service Date/Time: Sunday, October 15, 2017 17:46 - CONCLUSION: 1. Limited anatomic visualization due to severe respiratory motion artifact. 2. Hemoclips are identified in the expected distribution of the GDA. As the patient was reportedly actively bleeding by GI and patient's systolic blood pressure was in the 80s on presentation to the interventional department, empiric embolization was performed of the GDA. Pressures at the termination of the procedure were approximately 110 systolic. Pb Orosco MD Abdomen X-Ray 10/10/17 0000 Signed Impressions: Service Date/Time: Tuesday, October 10, 2017 15:26 - CONCLUSION: 1. Findings of mild small bowel ileus in the lower quadrant. Constantino Hagen MD Abdomen/Pelvis CT [id number]/07/[id number] Signed Impressions: Service Date/Time: Saturday, October 07, 2017 21:19 - CONCLUSION: 1. No acute abnormality seen. 2. Colonic diverticula. Cruz Guadarrama MD (Zehra Dela Cruz) Physical Exam General Appearance: Well Nourished, No Acute Distress, Comfortable, Obese (Zehra Dela CruzP) Throat Throat Exam: Oral Mucosa [place] & Moist (Zehra Dela CruzP) Neck Neck Exam: Neck Supple (Zehra Dela CruzP) Pulmonary Resp Exam: Breath Sounds Equal, No Distress, Decreased Bases, Diminished Breath Sounds (Zehra Dela CruzP) Cardiology CV Exam: Regular, Normal Sinus Rhythm (Zehra Dela CruzP) Gastrointestinal/Abdomen GI Exam: Soft, Non-Tender, Bowel Sounds Present GI Remarks large (Zehra Dela CruzP) Integumentary Skin Exam: Clear, Warm Skin Remarks NAKIA wrap to left leg (Zehra Dela Cruz) Extremeties Extremities Exam: Trace Edema (left lower leg with dressing.) (Zehra Dela Cruz) Neurologic Neuro Exam: Alert, Awake, Oriented (Zehra Dela Cruz) Psychiatric Psych Exam: Appropriate Responses (Zehra Dela Cruz) Assessment/Plan Problem List: (1) Acute worsening of stage 4 chronic kidney disease ICD Codes: N28.9 - Disorder of kidney and ureter, unspecified; N18.4 - Chronic kidney disease, stage 4 (severe) Status: Acute Plan: Acute kidney injury with admission creatinine of 4.72 and potassium of 5.5 from most likely hypotension with blood loss and NSAID use. Chronic kidney disease stage 4 from most likely uncontrolled hypertension. His baseline creatinine is at 2.5 to 3.0 and his driller brake lining is Dr. Florez. CT of abdomen is noted to have kidney of normal size and shape. There is no mass, stone or hydronephrosis. GI bleed - urgent embolization with IR yesterday on 10/15 R s/p left calf wound debridement and irrigation with graft placement on 10/25/17 Plan Creatinine stable at 2.84 from 2.92 at baseline Fluids encouraged Avoid Nephrotoxins. Non oliguric Follow the BMP and urine out put. (2) Sleep apnea ICD Codes: G47.30 - Sleep apnea, unspecified Status: Chronic (3) HTN (hypertension) ICD Codes: I10 - Essential (primary) hypertension Status: Chronic Plan: Will monitor (4) Skin ulcer ICD Codes: L98.499 - Non-pressure chronic ulcer of skin of other sites with unspecified severity Status: Chronic Plan: Dressing on (5) Acute blood loss anemia ICD Codes: D62 - Acute posthemorrhagic anemia Status: Acute Plan: On Protonix (Zehra Dela Cruz) Problem List: (1) Acute worsening of stage 4 chronic kidney disease ICD Codes: N28.9 - Disorder of kidney and ureter, unspecified; N18.4 - Chronic kidney disease, stage 4 (severe) Status: Acute Plan: Acute kidney injury with admission creatinine of 4.72 and potassium of 5.5 from most likely hypotension with blood loss and NSAID use. Chronic kidney disease stage 4 from most likely uncontrolled hypertension. His baseline creatinine is at 2.5 to 3.0 and his driller brake lining is Dr. Florez. CT of abdomen is noted to have kidney of normal size and shape. There is no mass, stone or hydronephrosis. GI bleed - urgent embolization with IR yesterday on 10/15 R s/p left calf wound debridement and irrigation with graft placement on 10/25/17 Plan Creatinine stable at 2.84 from 2.92 at baseline Fluids encouraged Avoid Nephrotoxins. Non oliguric Follow the BMP and urine out put. Patient seen and examined, agree with above. Creatinine coming close to his baseline. (2) Sleep apnea ICD Codes: G47.30 - Sleep apnea, unspecified Status: Chronic (3) HTN (hypertension) ICD Codes: I10 - Essential (primary) hypertension Status: Chronic Plan: Will monitor (4) Skin ulcer ICD Codes: L98.499 - Non-pressure chronic ulcer of skin of other sites with unspecified severity Status: Chronic Plan: Dressing on (5) Acute blood loss anemia ICD Codes: D62 - Acute posthemorrhagic anemia Status: Acute Plan: On Protonix (Aden Block MD) Problem Qualifiers (1) Sleep apnea: Qualified Codes: G47.30 - Sleep apnea, unspecified (2) HTN (hypertension): Qualified Codes: I10 - Essential (primary) hypertension (3) Skin ulcer: Qualified Codes: L98.492 - Non-pressure chronic ulcer of skin of other sites with fat layer exposed Zehra Dela Cruz October 30, 2017 12:05 Aden Block MD October 30, 2017 13:19
[2017-10-30] MEDS: guaiFENesin E.R. 600 MG TAB PO PRN (14:28)
--- NOTE | 2017-10-30 14:30 | HHI.PR ---
Subjective Remarks No new complaints. Objective Vitals Vital Signs Date Time Temp Pulse Resp B/P (MAP) Pulse Ox O2 Delivery O2 Flow Rate FiO2 10/30/17 12:00 98.6 65 18 133/62 (85) 96 10/30/17 08:00 98.8 75 18 151/71 (97) 95 10/30/17 08:00 Room Air 10/30/17 04:16 68 10/30/17 04:00 97.6 73 20 144/80 (101) 94 10/30/17 04:00 Room Air 10/30/17 00:00 98.0 64 19 142/74 (96) 97 10/30/17 00:00 Room Air 10/29/17 23:58 62 10/29/17 20:34 67 10/29/17 20:00 98.9 65 20 134/77 (96) 95 10/29/17 20:00 Room Air 10/29/17 16:00 Room Air 10/29/17 16:00 98.4 65 20 136/84 (101) 95 10/29/17 15:30 69 Result Diagram: 10/29/17 0522 10/30/17 0702 Imaging Last Impressions Chest X-Ray 10/16/17 0600 Signed Impressions: Service Date/Time: Monday, October 16, 2017 03:58 - CONCLUSION: 1. Left lower lobe consolidation. 2. ET and central line tips in good position. Lawrence Raya MD Catheter Placement X-Ray 10/15/17 0000 Signed Impressions: Service Date/Time: Sunday, October 15, 2017 17:46 - CONCLUSION: Uncomplicated line placement as above. Pb Orosco MD Abdomen Arteriogram 10/15/17 0000 Signed Impressions: Service Date/Time: Sunday, October 15, 2017 17:46 - CONCLUSION: 1. Limited anatomic visualization due to severe respiratory motion artifact. 2. Hemoclips are identified in the expected distribution of the GDA. As the patient was reportedly actively bleeding by GI and patient's systolic blood pressure was in the 80s on presentation to the interventional department, empiric embolization was performed of the GDA. Pressures at the termination of the procedure were approximately 110 systolic. Pb Orosco MD Abdomen X-Ray 10/10/17 0000 Signed Impressions: Service Date/Time: Tuesday, October 10, 2017 15:26 - CONCLUSION: 1. Findings of mild small bowel ileus in the lower quadrant. Constantino Hagen MD Abdomen/Pelvis CT 10/07/[id number] Signed Impressions: Service Date/Time: Saturday, October 07, 2017 21:19 - CONCLUSION: 1. No acute abnormality seen. 2. Colonic diverticula. Cruz Guadarrama MD Objective Remarks GENERAL: This is a well-nourished, well-developed patient, in no apparent distress. CARDIOVASCULAR: Regular rate and rhythm without murmurs, gallops, or rubs. RESPIRATORY: Clear to auscultation. Breath sounds equal bilaterally. No wheezes , rales, or rhonchi. GASTROINTESTINAL: Abdomen soft, non-tender, nondistended. Normal active bowel sounds MUSCULOSKELETAL: LLE bandaged NEURO: Alert & Oriented x4 to person, place, time, situation. Moves all ext x4 Procedures - s/p EGD (10/08). Pt found to have gastric ulcers. Pt underwent epi/clip - s/p debridement and wound vac placement (10/13) - Pt underwent Left calf wound debridement and irrigation with graft placement ( NEOX wound allograft) on 10/25/[address] Zaidi (10/25) A/P Problem List: (1) Acute blood loss anemia ICD Codes: D62 - Acute posthemorrhagic anemia Status: Acute Plan: - Acute GIB, acute blood loss anemia/symptomatic. - Pt was reportedly using goody powder. - H/H on admission 4.5/13.8. - EGD (10/08) --> Gastritis with gastric ulcer with visible vessel- Endoclipping with epi injection. - EGD (10/15) for significant drop in H/H overnight --> Esophagus normal. Stomach with residual food, active bleeding most likely either the antrum or pyloric channel injection of epinephrine. - Angiogram with embolization (10/15) --> Limited anatomic visualization due to severe respiratory motion artifact. Hemoclips are identified in the expected distribution of the GDA. As the patient was reportedly actively bleeding by GI and patient's systolic blood pressure was in the 80s on presentation to the interventional department, empiric embolization was performed of the GDA. Pressures at the termination of the procedure were approximately 110 systolic. - Pt has received 12 units PRBCs during admission - He is tolerating solid foods - No evidence of ongoing bleeding. - Transfuse if symptomatic with exertion prn - PPI BID - PT daily. - Pt given Epogen (10/26). - Hg 7.5 (10/26), 8.1 (10/27), 8.1 (10/28), 8.3 (10/29/17) - repeat CBC in AM - anticipate d/c 10/31 to home with HHC vs SNF Apparently pt's FHCP has . This will need to be clarified Tuesday. (2) GI bleed ICD Codes: K92.2 - Gastrointestinal hemorrhage, unspecified Status: Acute Plan: - see above (3) Acute worsening of stage 4 chronic kidney disease ICD Codes: N28.9 - Disorder of kidney and ureter, unspecified; N18.4 - Chronic kidney disease, stage 4 (severe) Status: Acute Plan: - a/ckd 4 - comgmt with Nephrology, Dr. Block - Cr/GFR continues to improve - Cr/GFR continue to improve - Cr 4.7 (10/07), 2.84 (10/23), 2.67 (10/25), 3.71 (10/26), 3.14 (10/27), 3.04 (10/28), 2.92 (10/29), 2.84 (10/30) - GFR 16 (10/07), 29 (10/23), 31 (10/25), 21 (10/26), 26 (10/27), 27 (10/27), 29 (10/30) - repeat BMP in AM (4) Skin ulcer ICD Codes: L98.499 - Non-pressure chronic ulcer of skin of other sites with unspecified severity Status: Chronic Plan: - case d/w Dr. Zuri Loya (10/10). - santyl - wound culture (10/10) --> E coli and Proteus mirabilis resistant to Levaquin - will DC ciprofloxacin/doxycycline - Rocephin - Vascular Surgery Consult requested. Case d/w Dr. Victor. - obtain segmental Doppler study reviewed conclusion: Normal CURT and TBI on the right. Abnormal TBI on the left. Multiple segments that could not be occluded in the left lower extremity possibly representing severely calcified vessels. CURT could not be calculated. As the patient is symptomatic in the left lower extremity, CTA abdomen with run off recommended. - Pt underwent left leg debridement and wound vac placement on 10/13/[address] Loya. - Pt underwent Left calf wound debridement and irrigation with graft placement ( NEOX wound allograft) on 10/25/[address] Zaidi (10/25) - Dressing changed by Dr. Zaidi (10/27) - graft appeared viable/healing - pt painful with dressing change - Case d/w Dr. Loya (10/29). Graft doing well - Pt to f/u at Dr. Zaidi's office for next dressing change. (5) Sleep apnea ICD Codes: G47.30 - Sleep apnea, unspecified Status: Chronic Plan: - Pt will need re-evaluation with polysomnogram outpt. - continue CPAP (6) HTN (hypertension) ICD Codes: I10 - Essential (primary) hypertension Status: Chronic Plan: - Pt is currently on Metoprolol 50mg Q12H --> increase to 75mg BID - Hydralazine 100mg Q8H, - Procardia XL 60mg Q12H, Isordil 20mg TID - Pt started on catapress 0.1mg BID per Nephrology - Observe Problem Qualifiers (1) GI bleed: Qualified Codes: K92.2 - Gastrointestinal hemorrhage, unspecified (2) Skin ulcer: Qualified Codes: L98.492 - Non-pressure chronic ulcer of skin of other sites with fat layer exposed (3) Sleep apnea: Qualified Codes: G47.30 - Sleep apnea, unspecified (4) HTN (hypertension): Qualified Codes: I10 - Essential (primary) hypertension González Tierney DO October 30, 2017 14:30
[2017-10-30] MEDS: diphenhydrAMINE HCL 50 MG/ML VIAL IV PRN (20:37)
[2017-10-31] VITALS (9 sets, daily range): BP systolic 110–140; BP diastolic 60–82; PULSE 62–70; RESP 16–21; TEMP 97.5–98.7; O2SAT 95–97
[2017-10-31] MEDS: hydrALAZINE HCL 100 MG TAB PO SCH ×3 (05:16→21:40)
[2017-10-31 07:00] LABS: AUTOMATED NEUTROPHIL # 2.9 TH/MM3 (1.8-7.7); BASOPHIL % 0.9 % (0.0-2.0); EOSINOPHIL # 0.3 TH/MM3 (0-0.4); EOSINOPHIL % 6.8 % (0.0-4.0); HEMATOCRIT 25.3 % (39.0-51.0); HEMOGLOBIN 8.5 GM/DL (13.0-17.0); LYMPH % 21.8 % (9.0-44.0); MEAN CELL VOLUME 89.5 FL (80.0-100.0); MEAN CORPUSCULAR HEMOGLOBIN 29.9 PG (27.0-34.0); MEAN CORPUSCULAR HGB CONC 33.5 % (32.0-36.0); MEAN PLATELET VOLUME 7.9 FL (7.0-11.0); MONO % 10.7 % (0.0-8.0); MONOCYTE # 0.5 TH/MM3 (0-0.9); NEUT % 59.8 % (16.0-70.0); PLATELET COUNT 321 TH/MM3 (150-450); RED BLOOD COUNT 2.83 MIL/MM3 (4.50-5.90); RED CELL DISTRIBUTION WIDTH 18.5 % (11.6-17.2); WHITE BLOOD COUNT 4.8 TH/MM3 (4.0-11.0)
[2017-10-31 07:25] LABS: CALCIUM 8.2 MG/DL (8.5-10.1); CREATININE 2.66 MG/DL (0.60-1.30)
[2017-10-31] MEDS: CHLORHEXIDINE 0.12% (ORAL KIT) 15 ML CUP MT SCH ×2 (08:00→20:00)
[2017-10-31] MEDS: PANTOPRAZOLE SODIUM 40 MG VIAL IV PUSH SCH ×2 (09:00→21:00)
[2017-10-31] MEDS: COLLAGENASE OINT 30 GM TUBE TOPICAL SCH (09:00)
[2017-10-31] MEDS: SODIUM CHLORIDE 0.9% FLUSH 10 ML FLUSH IV FLUSH SCH ×2 (09:00→21:00)
[2017-10-31] MEDS: CHOLECALCIFEROL (VIT D3) 5000 UNIT CAP PO SCH (09:18)
[2017-10-31] MEDS: METOPROLOL TARTRATE 50 MG TAB PO SCH ×2 (09:19→21:41)
[2017-10-31] MEDS: cloNIDine HCL 0.1 MG TAB PO SCH ×2 (09:19→21:40)
[2017-10-31] MEDS: DOCUSATE SODIUM 50 MG/SENNA 8.6 MG TAB PO SCH ×2 (09:19→21:40)
[2017-10-31] MEDS: NIFEdipine 60 MG SUSTAINED RELEASE TAB PO SCH ×2 (09:19→21:41)
[2017-10-31] MEDS: ISOSORBIDE DINITRATE 20 MG TAB PO SCH ×3 (09:20→16:36)
--- NOTE | 2017-10-31 10:10 | HHI.NPPN ---
Subjective General Problems: Anemia, Edema, Hypertension Renal Failure: Chronic, Stage IV History of Present Illness 46 year old male with a past medical history of chronic kidney disease stage 4, Hypertension, sleep apnea, chronic left lower extremity leg ulcer, obesity, and CHF. Patient presented to the ED with abdominal pain and maroon stools. He was found to have a hemoglobin of 4.5. His blood pressure is elevated now but per records when EMS arrived he was found to be hypotensive with a SBP in the 80 's. Nephrology is consulted for acute on chronic renal failure with a creatinine of 4.72 and potassium of 5.5. His baseline creatinine is at 2.5 to 3.0 and his artificial flower maker is Dr. Florez. Additional Remarks Patient resting with no complaints. Wants to be discharged. (Zehra Dela Cruz) Review of Systems General Constitutional: Fatigue (Zehra Dela Cruz) Respiratory Respiratory Remarks Denies SOB (Zehra Dela Cruz) Cardiovascular Cardiac Remarks Denies chest pain (Zehra Dela Cruz) Gastrointestinal GI Remarks denies abdominal pain (Zehra Dela Cruz) Objective Data Data Vital Signs Date Time Temp Pulse Resp B/P (MAP) Pulse Ox O2 Delivery O2 Flow Rate FiO2 10/31/17 08:07 Room Air 10/31/17 04:00 Room Air 10/31/17 04:00 97.5 66 20 133/68 (89) 97 10/31/17 04:00 66 10/31/17 04:00 68 10/31/17 00:00 97.8 64 16 130/60 (83) 96 10/31/17 00:00 65 10/31/17 00:00 Room Air 10/30/17 20:00 98.6 70 20 141/85 (103) 98 10/30/17 20:00 73 10/30/17 20:00 Room Air 10/30/17 16:06 66 10/30/17 16:00 98.2 66 18 142/76 (98) 95 10/30/17 16:00 Room Air 10/30/17 12:00 98.6 65 18 133/62 (85) 96 10/30/17 12:00 Room Air 10/30/17 11:45 67 (Zehra Dela Cruz) -: 10/31/17 0530 10/31/17 0530 Physical Exam General Appearance: Well Nourished, No Acute Distress, Comfortable, Obese (Zehra Dela Cruz) Throat Throat Exam: Oral Mucosa Tulsita & Moist (Zehra Dela Cruz) Neck Neck Exam: Neck Supple (Zehra Dela Cruz) Pulmonary Resp Exam: Breath Sounds Equal, No Distress, Decreased Bases, Diminished Breath Sounds (Zehra Dela Cruz) Cardiology CV Exam: Regular, Normal Sinus Rhythm (Zehra Dela Cruz) Gastrointestinal/Abdomen GI Exam: Soft, Non-Tender, Bowel Sounds Present GI Remarks large (Zehra Dela Cruz) Integumentary Skin Exam: Clear, Warm Skin Remarks NAKIA wrap to left leg (Zehra Dela Cruz) Extremeties Extremities Exam: Trace Edema (left lower leg with dressing.) (Zehra Dela Cruz) Neurologic Neuro Exam: Alert, Awake, Oriented (Zehra Dela Cruz) Psychiatric Psych Exam: Appropriate Responses (Zehra Dela Cruz) Assessment/Plan Problem List: (1) Acute worsening of stage 4 chronic kidney disease ICD Codes: N28.9 - Disorder of kidney and ureter, unspecified; N18.4 - Chronic kidney disease, stage 4 (severe) Status: Acute Plan: Acute kidney injury with admission creatinine of 4.72 and potassium of 5.5 from most likely hypotension with blood loss and NSAID use. Chronic kidney disease stage 4 from most likely uncontrolled hypertension. His baseline creatinine is at 2.5 to 3.0 and his artificial flower maker is Dr. Florez. CT of abdomen is noted to have kidney of normal size and shape. There is no mass, stone or hydronephrosis. GI bleed - urgent embolization with IR yesterday on 10/15 R s/p left calf wound debridement and irrigation with graft placement on 10/25/17 Plan Creatinine stable at 2.66 from 2.84 at baseline Fluids encouraged Avoid Nephrotoxins. Non oliguric Blood pressure stable Follow the BMP and urine out put. (2) Sleep apnea ICD Codes: G47.30 - Sleep apnea, unspecified Status: Chronic (3) HTN (hypertension) ICD Codes: I10 - Essential (primary) hypertension Status: Chronic Plan: Will monitor (4) Skin ulcer ICD Codes: L98.499 - Non-pressure chronic ulcer of skin of other sites with unspecified severity Status: Chronic Plan: Dressing on (5) Acute blood loss anemia ICD Codes: D62 - Acute posthemorrhagic anemia Status: Acute Plan: On Protonix (Zehra Dela Cruz) Problem List: (1) Acute worsening of stage 4 chronic kidney disease ICD Codes: N28.9 - Disorder of kidney and ureter, unspecified; N18.4 - Chronic kidney disease, stage 4 (severe) Status: Acute Plan: Acute kidney injury with admission creatinine of 4.72 and potassium of 5.5 from most likely hypotension with blood loss and NSAID use. Chronic kidney disease stage 4 from most likely uncontrolled hypertension. His baseline creatinine is at 2.5 to 3.0 and his artificial flower maker is Dr. Florez. CT of abdomen is noted to have kidney of normal size and shape. There is no mass, stone or hydronephrosis. GI bleed - urgent embolization with IR yesterday on 10/15 R s/p left calf wound debridement and irrigation with graft placement on 10/25/17 Plan Creatinine stable at 2.66 from 2.84 at baseline Fluids encouraged Avoid Nephrotoxins. Non oliguric Blood pressure stable Follow the BMP and urine out put. Patient seen and examined, agree with above. Creatinine continue to improve. (2) Sleep apnea ICD Codes: G47.30 - Sleep apnea, unspecified Status: Chronic (3) HTN (hypertension) ICD Codes: I10 - Essential (primary) hypertension Status: Chronic Plan: Will monitor (4) Skin ulcer ICD Codes: L98.499 - Non-pressure chronic ulcer of skin of other sites with unspecified severity Status: Chronic Plan: Dressing on (5) Acute blood loss anemia ICD Codes: D62 - Acute posthemorrhagic anemia Status: Acute Plan: On Protonix (Aden Block MD) Problem Qualifiers (1) Sleep apnea: Qualified Codes: G47.30 - Sleep apnea, unspecified (2) HTN (hypertension): Qualified Codes: I10 - Essential (primary) hypertension (3) Skin ulcer: Qualified Codes: L98.492 - Non-pressure chronic ulcer of skin of other sites with fat layer exposed Zehra Dela Cruz October 31, 2017 10:10 Aden Block MD October 31, 2017 22:14
--- NOTE | 2017-10-31 11:08 | HHI.PR ---
Subjective Remarks no new complaints Objective Vitals heart reg lung cta abd s/nt ext left leg dressing. Vital Signs Date Time Temp Pulse Resp B/P (MAP) Pulse Ox O2 Delivery O2 Flow Rate FiO2 10/31/17 08:07 Room Air 10/31/17 08:00 98.5 66 20 139/77 (97) 96 10/31/17 04:00 Room Air 10/31/17 04:00 97.5 66 20 133/68 (89) 97 10/31/17 04:00 66 10/31/17 04:00 68 10/31/17 00:00 97.8 64 16 130/60 (83) 96 10/31/17 00:00 65 10/31/17 00:00 Room Air 10/30/17 20:00 98.6 70 20 141/85 (103) 98 10/30/17 20:00 73 10/30/17 20:00 Room Air 10/30/17 16:06 66 10/30/17 16:00 98.2 66 18 142/76 (98) 95 10/30/17 16:00 Room Air 10/30/17 12:00 98.6 65 18 133/62 (85) 96 10/30/17 12:00 Room Air 10/30/17 11:45 67 Result Diagram: 10/31/17 0530 10/31/17 0530 Imaging Last Impressions Chest X-Ray 10/16/17 0600 Signed Impressions: Service Date/Time: Monday, October 16, 2017 03:58 - CONCLUSION: 1. Left lower lobe consolidation. 2. ET and central line tips in good position. Lawrence Raya MD Catheter Placement X-Ray 10/15/17 0000 Signed Impressions: Service Date/Time: Sunday, October 15, 2017 17:46 - CONCLUSION: Uncomplicated line placement as above. Pb Orosco MD Abdomen Arteriogram 10/15/17 0000 Signed Impressions: Service Date/Time: Sunday, October 15, 2017 17:46 - CONCLUSION: 1. Limited anatomic visualization due to severe respiratory motion artifact. 2. Hemoclips are identified in the expected distribution of the GDA. As the patient was reportedly actively bleeding by GI and patient's systolic blood pressure was in the 80s on presentation to the interventional department, empiric embolization was performed of the GDA. Pressures at the termination of the procedure were approximately 110 systolic. Pb Orosco MD Abdomen X-Ray 10/10/17 0000 Signed Impressions: Service Date/Time: Tuesday, October 10, 2017 15:26 - CONCLUSION: 1. Findings of mild small bowel ileus in the lower quadrant. Constantino Hagen MD Abdomen/Pelvis CT 10/07/172052 Signed Impressions: Service Date/Time: Saturday, October 07, 2017 21:19 - CONCLUSION: 1. No acute abnormality seen. 2. Colonic diverticula. Cruz Guadarrama MD Procedures - s/p EGD (10/08). Pt found to have gastric ulcers. Pt underwent epi/clip - s/p debridement and wound vac placement (10/13) - Pt underwent Left calf wound debridement and irrigation with graft placement ( NEOX wound allograft) on 10/25/[address] Zaidi (10/25) A/P Problem List: (1) Acute blood loss anemia ICD Codes: D62 - Acute posthemorrhagic anemia Status: Acute Plan: - Acute GIB, acute blood loss anemia/symptomatic. - Pt was reportedly using goody powder. - H/H on admission 4.5/13.8. - EGD (10/08) --> Gastritis with gastric ulcer with visible vessel- Endoclipping with epi injection. - EGD (10/15) for significant drop in H/H overnight --> Esophagus normal. Stomach with residual food, active bleeding most likely either the antrum or pyloric channel injection of epinephrine. - Angiogram with embolization (10/15) --> Limited anatomic visualization due to severe respiratory motion artifact. Hemoclips are identified in the expected distribution of the GDA. As the patient was reportedly actively bleeding by GI and patient's systolic blood pressure was in the 80s on presentation to the interventional department, empiric embolization was performed of the GDA. Pressures at the termination of the procedure were approximately 110 systolic. - Pt has received 12 units PRBCs during admission - He is tolerating solid foods - No evidence of ongoing bleeding. - Transfuse if symptomatic with exertion prn - PPI BID - PT daily. - Pt given Epogen (10/26). - Hg 7.5 (10/26), 8.1 (10/27), 8.1 (10/28), 8.3 (10/29/17) Pt insurance . unable to get snf. will need twice weekly bandage changes. will try to arrange hhc for him and close f/u podiatry. (2) GI bleed ICD Codes: K92.2 - Gastrointestinal hemorrhage, unspecified Status: Acute Plan: - see above (3) Acute worsening of stage 4 chronic kidney disease ICD Codes: N28.9 - Disorder of kidney and ureter, unspecified; N18.4 - Chronic kidney disease, stage 4 (severe) Status: Acute Plan: - a/ckd 4 - comgmt with Nephrology, Dr. Block - Cr/GFR continues to improve - Cr/GFR continue to improve - Cr 4.7 (10/07), 2.84 (10/23), 2.67 (10/25), 3.71 (10/26), 3.14 (10/27), 3.04 (10/28), 2.92 (10/29), 2.84 (10/30) - GFR 16 (10/07), 29 (10/23), 31 (10/25), 21 (10/26), 26 (10/27), 27 (10/27), 29 (10/30) - repeat BMP in AM (4) Skin ulcer ICD Codes: L98.499 - Non-pressure chronic ulcer of skin of other sites with unspecified severity Status: Chronic Plan: - case d/w Dr. Zuri Loya (10/10). - santyl - wound culture (10/10) --> E coli and Proteus mirabilis resistant to Levaquin - will DC ciprofloxacin/doxycycline - Rocephin - Vascular Surgery Consult requested. Case d/w Dr. Victor. - obtain segmental Doppler study reviewed conclusion: Normal CURT and TBI on the right. Abnormal TBI on the left. Multiple segments that could not be occluded in the left lower extremity possibly representing severely calcified vessels. CURT could not be calculated. As the patient is symptomatic in the left lower extremity, CTA abdomen with run off recommended. - Pt underwent left leg debridement and wound vac placement on 10/13/[address] Loya. - Pt underwent Left calf wound debridement and irrigation with graft placement ( NEOX wound allograft) on 10/25/[address] Zaidi (10/25) - Dressing changed by Dr. Zaidi (10/27) - graft appeared viable/healing - pt painful with dressing change - Case d/w Dr. Loya (10/29). Graft doing well - Pt to f/u at Dr. Zaidi's office for next dressing change. (5) Sleep apnea ICD Codes: G47.30 - Sleep apnea, unspecified Status: Chronic Plan: - Pt will need re-evaluation with polysomnogram outpt. - continue CPAP (6) HTN (hypertension) ICD Codes: I10 - Essential (primary) hypertension Status: Chronic Plan: - Pt is currently on Metoprolol 50mg Q12H --> increase to 75mg BID - Hydralazine 100mg Q8H, - Procardia XL 60mg Q12H, Isordil 20mg TID - Pt started on catapress 0.1mg BID per Nephrology - Observe Problem Qualifiers (1) GI bleed: Qualified Codes: K92.2 - Gastrointestinal hemorrhage, unspecified (2) Skin ulcer: Qualified Codes: L98.492 - Non-pressure chronic ulcer of skin of other sites with fat layer exposed (3) Sleep apnea: Qualified Codes: G47.30 - Sleep apnea, unspecified (4) HTN (hypertension): Qualified Codes: I10 - Essential (primary) hypertension Francisco J Umanzor MD October 31, 2017 11:08
--- NOTE | 2017-10-31 11:10 | HHI.FF ---
Face to Face Verification Diagnosis: (1) Wound cellulitis (2) Cellulitis of left foot (3) Obesity (4) GI bleed Home Health Nursing Order: Wound care and dressing changes Instructions: pt needs adaptic to leg wound with wet/dry dressing twice a week I have seen patient Demetrice Jackson on 10/31/17. My clinical findings support the need for the requested home health care services because: Deconditioned w/ increased weakness Med compliance is questionable Limited ability to care for self I certify that my clinical findings support that this patient is homebound because: Unsafe to leave home unassisted Sandee Perez October 31, 2017 11:10 Francisco J Umanzor MD October 31, 2017 11:11
[2017-10-31] MEDS: ACETAMINOPHEN/HYDROcodone 325 MG/10 MG TAB PO PRN (12:50)
[2017-10-31] MEDS: PANTOPRAZOLE SOD 40 MG DELAYED RELEASE TAB PO SCH (22:07)
[2017-11-01 00:01] VITALS: BP 144/76; PULSE 66; RESP 21; TEMP 98.2; O2SAT 97
[2017-11-01 04:00] VITALS: BP 148/73; PULSE 67; RESP 19; TEMP 97.9; O2SAT 96
[2017-11-01 04:04] VITALS: PULSE 76
[2017-11-01] MEDS: hydrALAZINE HCL 100 MG TAB PO SCH ×2 (05:57→13:04)
[2017-11-01] MEDS: CHLORHEXIDINE 0.12% (ORAL KIT) 15 ML CUP MT SCH (07:22)
[2017-11-01] MEDS: SODIUM CHLORIDE 0.9% FLUSH 10 ML FLUSH IV FLUSH SCH (07:22)
[2017-11-01 08:45] VITALS: BP 150/74; PULSE 105; RESP 18; TEMP 97.7; O2SAT 94
[2017-11-01] MEDS: NIFEdipine 60 MG SUSTAINED RELEASE TAB PO SCH (08:47)
[2017-11-01] MEDS: PANTOPRAZOLE SOD 40 MG DELAYED RELEASE TAB PO SCH (08:47)
[2017-11-01] MEDS: ISOSORBIDE DINITRATE 20 MG TAB PO SCH ×2 (08:47→12:13)
[2017-11-01] MEDS: cloNIDine HCL 0.1 MG TAB PO SCH (08:47)
[2017-11-01] MEDS: COLLAGENASE OINT 30 GM TUBE TOPICAL SCH (08:47)
[2017-11-01] MEDS: METOPROLOL TARTRATE 50 MG TAB PO SCH (08:47)
[2017-11-01] MEDS: CHOLECALCIFEROL (VIT D3) 5000 UNIT CAP PO SCH (08:47)
[2017-11-01] MEDS: DOCUSATE SODIUM 50 MG/SENNA 8.6 MG TAB PO SCH (08:47)
[2017-11-01] MEDS ORDERED: PANT40TA3 PO (09:39)
[2017-11-01] MEDS ORDERED: METO-309 PO (09:39)
[2017-11-01] MEDS ORDERED: NIFE60TA8 PO (09:39)
[2017-11-01] MEDS ORDERED: HYDR-3583 PO (09:39)
[2017-11-01] MEDS ORDERED: CLON.1 PO (09:39)
--- NOTE | 2017-11-01 09:52 | HHI.DS ---
Discharge Summary Admission Date Oct 07, 2017 at 22:45 Discharge Date: November 01, 2017 Admitting Diagnosis Severe anemia. GI bleed. Acute on chronic kidney disease. (1) Acute blood loss anemia Diagnosis: Principal ICD Codes: D62 - Acute posthemorrhagic anemia Status: Acute (2) GI bleed Diagnosis: Principal ICD Codes: K92.2 - Gastrointestinal hemorrhage, unspecified Status: Acute (3) Acute worsening of stage 4 chronic kidney disease Diagnosis: Principal ICD Codes: N28.9 - Disorder of kidney and ureter, unspecified; N18.4 - Chronic kidney disease, stage 4 (severe) Status: Acute (4) Skin ulcer Diagnosis: Principal ICD Codes: L98.499 - Non-pressure chronic ulcer of skin of other sites with unspecified severity Status: Chronic (5) Sleep apnea Diagnosis: Secondary ICD Codes: G47.30 - Sleep apnea, unspecified Status: Chronic (6) HTN (hypertension) Diagnosis: Secondary ICD Codes: I10 - Essential (primary) hypertension Status: Chronic Procedures - s/p EGD (10/08). Pt found to have gastric ulcers. Pt underwent epi/clip - s/p debridement and wound vac placement (10/13) - Pt underwent Left calf wound debridement and irrigation with graft placement ( NEOX wound allograft) on 10/25/[address] Zaidi (10/25) Brief History 46-year-old male complains of abdominal pain and rectal bleeding. Patient was was at a viewing when he started passing blood per rectum. Patient also complained abdominal pain at that time. EMS was called. Patient was found to be hypotensive with blood pressure in the 80s. IV was started and left upper chest. Patient was given normal saline solution 100 cc IV bolus prior to arrival. Upon arrival patient states that he does not have any abdominal pain. Patient denies any headache. Patient denies any chest pain or shortness of breath. Patient denies any dysuria frequency. Patient denies any fever chills. Patient has history chronic left leg ulcer with pain. Patient has been taking tramadol for pain. Patient states that he also takes over-the- counter Aleve for pain. Patient denies any history of GI bleed in the past. Patient denies any history of peptic ulcer. Patient is not on any blood thinner. Patient also on doxycycline for chronic left leg ulcer. Patient states had surgery to left leg ulcer last week. On a scale of 1-10 the left leg pain is a 7. Patient states that he has a history of chronic kidney disease. Patient very poor historian was in hospital recently for anemia required blood transfusion and was told had kidney failure and heart failure does not know what work up was done but does have high blood pressure and is on high dose medication . I will hold them for now in view of the hypotension. History CBC/BMP: 10/31/17 0530 10/31/17 0530 Significant Findings Laboratory Tests Test 10/30/17 07:02 10/31/17 05:30 Blood Urea Nitrogen 24 MG/DL (7-18) 25 MG/DL (7-18) Creatinine 2.84 MG/DL (0.60-1.30) 2.66 MG/DL (0.60-1.30) Calcium Level 8.2 MG/DL (8.5-10.1) 8.2 MG/DL (8.5-10.1) Chloride Level 109 MEQ/L (98-107) Estimat Glomerular Filtration Rate 29 ML/MIN (>89) 31 ML/MIN (>89) Red Blood Count 2.83 MIL/MM3 (4.50-5.90) Hemoglobin 8.5 GM/DL (13.0-17.0) Hematocrit 25.3 % (39.0-51.0) Red Cell Distribution Width 18.5 % (11.6-17.2) Monocytes (%) (Auto) 10.7 % (0.0-8.0) Eosinophils (%) (Auto) 6.8 % (0.0-4.0) Hospital Course (1) Acute blood loss anemia - Acute GIB, acute blood loss anemia/symptomatic. - Pt was reportedly using goody powder. - H/H on admission 4.5/13.8. - EGD (10/08) --> Gastritis with gastric ulcer with visible vessel- Endoclipping with epi injection. - EGD (10/15) for significant drop in H/H overnight --> Esophagus normal. Stomach with residual food, active bleeding most likely either the antrum or pyloric channel injection of epinephrine. - Angiogram with embolization (10/15) --> Limited anatomic visualization due to severe respiratory motion artifact. Hemoclips are identified in the expected distribution of the GDA. As the patient was reportedly actively bleeding by GI and patient's systolic blood pressure was in the 80s on presentation to the interventional department, empiric embolization was performed of the GDA. Pressures at the termination of the procedure were approximately 110 systolic. - Pt has received 12 units PRBCs during admission - He is tolerating solid foods - No evidence of ongoing bleeding. - Transfuse if symptomatic with exertion prn - PPI BID - PT daily. - Pt given Epogen (10/26). - hgb stable on dc Pt insurance . unable to get snf. will need twice weekly bandage changes. [facility] service will help for a few visits informed podiatry who will have him back to clinic. close f/u podiatry. (2) GI bleed ICD Codes: K92.2 - Gastrointestinal hemorrhage, unspecified Status: Acute Plan: - see above (3) Acute worsening of stage 4 chronic kidney disease ICD Codes: N28.9 - Disorder of kidney and ureter, unspecified; N18.4 - Chronic kidney disease, stage 4 (severe) Status: Acute Plan: - a/ckd 4 - comgmt with Nephrology, Dr. Block - Cr/GFR continues to improve - Cr/GFR continue to improve (4) Skin ulcer - case d/w Dr. Zuri Loya (10/10). - santyl - wound culture (10/10) --> E coli and Proteus mirabilis resistant to Levaquin - will DC ciprofloxacin/doxycycline - Rocephin - Vascular Surgery Consult requested. Case d/w Dr. Victor. - obtain segmental Doppler study reviewed conclusion: Normal CURT and TBI on the right. Abnormal TBI on the left. Multiple segments that could not be occluded in the left lower extremity possibly representing severely calcified vessels. CURT could not be calculated. As the patient is symptomatic in the left lower extremity, CTA abdomen with run off recommended. - Pt underwent left leg debridement and wound vac placement on 10/13/[address] Loya. - Pt underwent Left calf wound debridement and irrigation with graft placement ( NEOX wound allograft) on 10/25/[address] Zaidi (10/25) - Dressing changed by Dr. Zaidi (10/27) - graft appeared viable/healing - pt painful with dressing change - Case d/w Dr. Loya (10/29). Graft doing well - Pt to f/u at Dr. Zaidi's office this week wound care per [facility] and to learn. wet/dry and adaptic every 3-4 days (5) Sleep apnea ICD Codes: G47.30 - Sleep apnea, unspecified Status: Chronic Plan: - Pt will need re-evaluation with polysomnogram outpt. - continue CPAP (6) HTN (hypertension) ICD Codes: I10 - Essential (primary) hypertension Status: Chronic Plan: - Pt is currently on Metoprolol 50mg Q12H --> increased to 75mg BID - Hydralazine 100mg Q8H, - Procardia XL 60mg Q12H, Isordil 20mg TID - Pt started on catapress 0.1mg BID per Nephrology -controlled Pt Condition on Discharge: Stable Discharge Disposition: Disch w/ Home Health Serv Discharge Instructions DIET: Follow Instructions for: Heart Healthy Diet Activities you can perform: Weight Bearing as Vlad Follow up Referrals: Gastroenterology - 2 Weeks with Jaden Nino MD Nephrology - [address] Block PCP Follow-up - [address] Zavala Podiatry - 2-3 Days with Teodora Zaidi DPM New Medications: Clonidine (Catapres) 0.1 Mg Tab 0.1 MG PO Q12HR for Blood Pressure Management, #60 TAB 3 Refills Hydrocodone/Acetaminophen (Hydrocodone-Acetamin 10-325 mg) 10 Mg-325 Mg Tablet 1 TAB PO Q6H PRN for PAIN 1-10, #30 TAB 0 Refills Metoprolol Tartrate (Lopressor) 50 Mg Tab 75 MG PO Q12HR for Blood Pressure Management for 30 Days, TAB 3 Refills Nifedipine ER 24 HR (Nifedipine ER 24 HR) 60 Mg Tab 60 MG PO Q12HR for Blood Pressure Management for 60 Days, TAB 3 Refills Pantoprazole (Pantoprazole) 40 Mg Tab 40 MG PO Q12HR for ulcer for 30 Days, TAB 3 Refills Continued Medications: Hydralazine (Hydralazine) 100 Mg Tab 100 MG PO TID for Blood Pressure Management, TAB 0 Refills Take with meals Isosorbide Dinitrate (Isosorbide Dinitrate) 20 Mg Tab 20 MG PO TID, TAB 0 Refills Terazosin (Terazosin) 1 Mg Cap 1 MG PO HS, #30 CAP 0 Refills Discontinued Medications: Aspirin (Aspirin Low Dose) 81 Mg Chew 81 MG CHEW DAILY, TAB 0 Refills Ciprofloxacin (Ciprofloxacin) 250 Mg Tab 250 MG PO BID for Infection, TAB 0 Refills Doxycycline Hyclate (Doxycycline Hyclate) 100 Mg Tab 100 MG PO Q12HR for bacterial infection for 7 Days, #14 TAB Metoprolol Tartrate (Metoprolol Tartrate) 50 Mg Tab 50 MG PO DAILY, #30 TAB 0 Refills Spironolactone (Spironolactone) 25 Mg Tab 25 MG PO HS, #30 TAB 0 Refills Tramadol (Tramadol) 50 Mg Tab 50 MG PO Q8H PRN for PAIN, TAB 0 Refills Francisco J Umanzor MD November 01, 2017 09:52
[2017-11-01 12:00] VITALS: BP 151/86; PULSE 66; RESP 20; TEMP 98.3; O2SAT 97
[2017-11-01] MEDS: guaiFENesin E.R. 600 MG TAB PO PRN (12:34)
--- NOTE | 2017-11-01 14:26 | HHI.NPPN ---
Subjective General Problems: Anemia, Edema, Hypertension Renal Failure: Chronic, Stage IV History of Present Illness 46 year old male with a past medical history of chronic kidney disease stage 4, Hypertension, sleep apnea, chronic left lower extremity leg ulcer, obesity, and CHF. Patient presented to the ED with abdominal pain and maroon stools. He was found to have a hemoglobin of 4.5. His blood pressure is elevated now but per records when EMS arrived he was found to be hypotensive with a SBP in the 80 's. Nephrology is consulted for acute on chronic renal failure with a creatinine of 4.72 and potassium of 5.5. His baseline creatinine is at 2.5 to 3.0 and his supervisor riveting is Dr. Florez. Additional Remarks No shortness of breath. Creatinine is stable. (Zehra Dela Cruz) Review of Systems General Constitutional: Fatigue (Zehra Dela Cruz) Respiratory Respiratory Remarks Denies SOB (Zehra Dela Cruz) Cardiovascular Cardiac Remarks Denies chest pain (Zehra Dela Cruz) Gastrointestinal GI Remarks denies abdominal pain (Zehra Dela Cruz) Objective Data Data Vital Signs Date Time Temp Pulse Resp B/P (MAP) Pulse Ox O2 Delivery O2 Flow Rate FiO2 11/01/17 12:00 98.3 66 20 151/86 (107) 97 11/01/17 08:55 Room Air 21 11/01/17 08:45 97.7 105 18 150/74 (99) 94 11/01/17 04:04 76 11/01/17 04:00 97.9 67 19 148/73 (98) 96 11/01/17 04:00 Room Air 11/01/17 00:01 98.2 66 21 144/76 (98) 97 11/01/17 00:00 Room Air 10/31/17 23:52 66 10/31/17 20:00 Room Air 10/31/17 20:00 98.2 66 21 140/75 (96) 97 Manual Cuff/Auscultation 10/31/17 19:56 70 10/31/17 18:00 63 10/31/17 16:00 98.7 66 20 110/61 (77) 97 (Zehra Dela Cruz) -: 10/31/17 0530 10/31/17 0530 Imaging Last Impressions Chest X-Ray 10/29/17 0000 Signed Impressions: Service Date/Time: Sunday, October 29, 2017 17:19 - CONCLUSION: Left lower lung infiltrate. Otherwise stable exam compared to the prior study. Dutch Hector MD Catheter Placement X-Ray 10/15/17 0000 Signed Impressions: Service Date/Time: Sunday, October 15, 2017 17:46 - CONCLUSION: Uncomplicated line placement as above. Pb Orosco MD Abdomen Arteriogram 10/15/17 0000 Signed Impressions: Service Date/Time: Sunday, October 15, 2017 17:46 - CONCLUSION: 1. Limited anatomic visualization due to severe respiratory motion artifact. 2. Hemoclips are identified in the expected distribution of the GDA. As the patient was reportedly actively bleeding by GI and patient's systolic blood pressure was in the 80s on presentation to the interventional department, empiric embolization was performed of the GDA. Pressures at the termination of the procedure were approximately 110 systolic. Pb Orosco MD Abdomen X-Ray 10/10/17 0000 Signed Impressions: Service Date/Time: Tuesday, October 10, 2017 15:26 - CONCLUSION: 1. Findings of mild small bowel ileus in the lower quadrant. Constantino Hagen MD Abdomen/Pelvis CT [id number] Signed Impressions: Service Date/Time: Saturday, October 07, 2017 21:19 - CONCLUSION: 1. No acute abnormality seen. 2. Colonic diverticula. Cruz Guadarrama MD (Zehra Dela Cruz) Physical Exam General Appearance: Well Nourished, No Acute Distress, Comfortable, Obese (Zehra Dela Cruz) Throat Throat Exam: Oral Mucosa [place] & Moist (Zehra Dela Cruz) Neck Neck Exam: Neck Supple (Zehra Dela Cruz) Pulmonary Resp Exam: Breath Sounds Equal, No Distress, Decreased Bases, Diminished Breath Sounds (Zehra Dela Cruz) Cardiology CV Exam: Regular, Normal Sinus Rhythm (Zehra Dela Cruz) Gastrointestinal/Abdomen GI Exam: Soft, Non-Tender, Bowel Sounds Present GI Remarks large (Zehra Dela Cruz) Integumentary Skin Exam: Clear, Warm Skin Remarks NAKIA wrap to left leg (Zehra Dela Cruz) Extremeties Extremities Exam: Trace Edema (left lower leg with dressing.) (Zehra Dela Cruz) Neurologic Neuro Exam: Alert, Awake, Oriented (Zehra Dela Cruz) Psychiatric Psych Exam: Appropriate Responses (Zehra Dela Cruz) Assessment/Plan Problem List: (1) Acute worsening of stage 4 chronic kidney disease ICD Codes: N28.9 - Disorder of kidney and ureter, unspecified; N18.4 - Chronic kidney disease, stage 4 (severe) Status: Acute Plan: Acute kidney injury with admission creatinine of 4.72 and potassium of 5.5 from most likely hypotension with blood loss and NSAID use. Chronic kidney disease stage 4 from most likely uncontrolled hypertension. His baseline creatinine is at 2.5 to 3.0 and his supervisor riveting is Dr. Florez. CT of abdomen is noted to have kidney of normal size and shape. There is no mass, stone or hydronephrosis. GI bleed - urgent embolization with IR yesterday on 10/15 R s/p left calf wound debridement and irrigation with graft placement on 10/25/17 Plan Creatinine stable at baseline Fluids encouraged Avoid Nephrotoxins. Non oliguric Blood pressure stable Follow the BMP and urine out put. Plans for discharge underway. Will need to be follow up with Nephrology (2) Sleep apnea ICD Codes: G47.30 - Sleep apnea, unspecified Status: Chronic (3) HTN (hypertension) ICD Codes: I10 - Essential (primary) hypertension Status: Chronic Plan: Will monitor (4) Skin ulcer ICD Codes: L98.499 - Non-pressure chronic ulcer of skin of other sites with unspecified severity Status: Chronic Plan: Dressing on (5) Acute blood loss anemia ICD Codes: D62 - Acute posthemorrhagic anemia Status: Acute Plan: On Protonix (Zehra Dela Cruz) Problem List: (1) Acute worsening of stage 4 chronic kidney disease ICD Codes: N28.9 - Disorder of kidney and ureter, unspecified; N18.4 - Chronic kidney disease, stage 4 (severe) Status: Acute Plan: Acute kidney injury with admission creatinine of 4.72 and potassium of 5.5 from most likely hypotension with blood loss and NSAID use. Chronic kidney disease stage 4 from most likely uncontrolled hypertension. His baseline creatinine is at 2.5 to 3.0 and his supervisor riveting is Dr. Florez. CT of abdomen is noted to have kidney of normal size and shape. There is no mass, stone or hydronephrosis. GI bleed - urgent embolization with IR yesterday on 10/15 R s/p left calf wound debridement and irrigation with graft placement on 10/25/17 Plan Creatinine stable at baseline Fluids encouraged Avoid Nephrotoxins. Non oliguric Blood pressure stable Follow the BMP and urine out put. Plans for discharge underway. Will need to be follow up with Nephrology. Patient seen and examined, agree with above. Patient for discharge, has advance renal disease, to follow with Nephrology. (2) Sleep apnea ICD Codes: G47.30 - Sleep apnea, unspecified Status: Chronic (3) HTN (hypertension) ICD Codes: I10 - Essential (primary) hypertension Status: Chronic Plan: Will monitor (4) Skin ulcer ICD Codes: L98.499 - Non-pressure chronic ulcer of skin of other sites with unspecified severity Status: Chronic Plan: Dressing on (5) Acute blood loss anemia ICD Codes: D62 - Acute posthemorrhagic anemia Status: Acute Plan: On Protonix (Aden Block MD) Problem Qualifiers (1) Sleep apnea: Qualified Codes: G47.30 - Sleep apnea, unspecified (2) HTN (hypertension): Qualified Codes: I10 - Essential (primary) hypertension (3) Skin ulcer: Qualified Codes: L98.492 - Non-pressure chronic ulcer of skin of other sites with fat layer exposed Zehra Dela Cruz November 01, 2017 14:26 Aden Block MD November 01, 2017 21:20
[2017-11-01 16:00] VITALS: BP 135/73; PULSE 69; RESP 20; TEMP 98.4; O2SAT 95
== END 2017-11-01 16:50 | disposition home health service (06) | DRG 356 ==
LOC: NEPC 19:34 → NEDA 22:45 → HIMW 10-08 00:10 → N04A 10-09 17:35 → N03B 10-15 17:37 → N03A 10-15 18:56 → N04B 10-19 14:49
PROVIDERS: ADMIT Hospitalist; ATTEND Hospitalist
PROC: 30233N1 Transfusion of Nonautologous Red Blood Cells into Peripheral Vein, Percutaneous Approach (ICD-10-PCS; 2017-10-07)
PROC: 02HV33Z Insertion of Infusion Device into Superior Vena Cava, Percutaneous Approach (ICD-10-PCS; 2017-10-07)
PROC: 0W3P8ZZ Control Bleeding in Gastrointestinal Tract, Via Natural or Artificial Opening Endoscopic (ICD-10-PCS; 2017-10-08)
PROC: 5A09357 Assistance with Respiratory Ventilation, Less than 24 Consecutive Hours, Continuous Positive Airway Pressure (ICD-10-PCS; 2017-10-12)
PROC: 0JDP3ZZ Extraction of Left Lower Leg Subcutaneous Tissue and Fascia, Percutaneous Approach (ICD-10-PCS; 2017-10-13)
PROC: 0W3P8ZZ Control Bleeding in Gastrointestinal Tract, Via Natural or Artificial Opening Endoscopic (ICD-10-PCS; 2017-10-15)
PROC: 04L23DZ Occlusion of Gastric Artery with Intraluminal Device, Percutaneous Approach (ICD-10-PCS; 2017-10-15)
PROC: 5A1945Z Respiratory Ventilation, 24-96 Consecutive Hours (ICD-10-PCS; 2017-10-15)
PROC: 05HM33Z Insertion of Infusion Device into Right Internal Jugular Vein, Percutaneous Approach (ICD-10-PCS; 2017-10-16)
PROC: 2W0MX6Z Change Pressure Dressing on Left Lower Extremity (ICD-10-PCS; 2017-10-17)
PROC: 2W0MX6Z Change Pressure Dressing on Left Lower Extremity (ICD-10-PCS; 2017-10-19)
PROC: 0HRLXK4 Replacement of Left Lower Leg Skin with Nonautologous Tissue Substitute, Partial Thickness, External Approach (ICD-10-PCS; 2017-10-25)
PROC: 0JDP0ZZ Extraction of Left Lower Leg Subcutaneous Tissue and Fascia, Open Approach (ICD-10-PCS; 2017-10-25)
PROC: 0JBP0ZZ Excision of Left Lower Leg Subcutaneous Tissue and Fascia, Open Approach (ICD-10-PCS; principal; 2017-10-25 13:10)
DX: K25.4 Chronic or unspecified gastric ulcer with hemorrhage (principal); R57.8 Other shock; J95.821 Acute postprocedural respiratory failure; N18.4 Chronic kidney disease, stage 4 (severe); D68.9 Coagulation defect, unspecified; N17.9 Acute kidney failure, unspecified; I13.0 Hypertensive heart and chronic kidney disease with heart failure and stage 1 through stage 4 chronic kidney disease, or unspecified chronic kidney disease; I50.9 Heart failure, unspecified; D69.1 Qualitative platelet defects; L97.222 Non-pressure chronic ulcer of left calf with fat layer exposed; K56.7 Ileus, unspecified; D62 Acute posthemorrhagic anemia; Z68.42 Body mass index [BMI] 45.0-49.9, adult; G47.30 Sleep apnea, unspecified; E83.51 Hypocalcemia; Z86.79 Personal history of other diseases of the circulatory system; E66.9 Obesity, unspecified; Z83.3 Family history of diabetes mellitus; Z79.1 Long term (current) use of non-steroidal anti-inflammatories (NSAID); E87.5 Hyperkalemia; I73.9 Peripheral vascular disease, unspecified; I25.10 Atherosclerotic heart disease of native coronary artery without angina pectoris; K20.8 Other esophagitis; K29.70 Gastritis, unspecified, without bleeding; B96.20 Unspecified Escherichia coli [E. coli] as the cause of diseases classified elsewhere; B96.4 Proteus (mirabilis) (morganii) as the cause of diseases classified elsewhere; Z16.23 Resistance to quinolones and fluoroquinolones; Z79.899 Other long term (current) drug therapy
CPT/HCPCS: 31500; 36247; 36430; 36556; 36600; 37244; 71045; 74018; 74176; 75726; 76937; 77001; 80048; 80053; 80069; 82306; 82550; 82805; 83735; 84100; 84165; 85007; 85014; 85018; 85025; 85027; 85384; 85610; 85730; 86021; 86038; 86160; 86850; 86900; 86901; 86920; 87070; 87077; 87186; 87205; 87641; 93005; 93923; 94002; 94003; 94150; 94640; 94664; 94770; 96365; 96366; 96368; 96375; C1752; C1760; C1769; C1887; C1894; C9113; J0131; J0171; J0330; J0610; J0696; J1100; J1170; J1200; J1644; J1940; J2175; J2250; J2270; J2405; J2597; J2710; J3010; J7030; J7050; J7120; P9016; Q4081; Q4148; Q9967

== ENCOUNTER 2017-11-22 11:20 | Inpatient (IN) | payer OTHER ==
[2017-11-22] VITALS (14 sets, daily range): BP systolic 160–188; BP diastolic 87–100; PULSE 66–80; RESP 18–34; TEMP 98.3–99; O2SAT 91–98
[~2017-11-22 11:20] MED LIST changes: -AMLO10 PO; -AUGM500T7 PO; -CARV12.5 PO; +CLON.1 PO; -DOXY100C PO; -DOXY100T PO; -FURO1TAB60 PO; -HYDR-3580 PO; +HYDR-3583 PO; -HYDR-3800 PO; +HYDR-3801 PO; -HYDR25TA35 PO; +ISOS20TA2 PO; +METO-309 PO; +NIFE60TA8 PO; +PANT40TA3 PO; -SPIR25 PO; +TERA1CAP3 PO
--- NOTE | 2017-11-22 11:42 | PD ---
HPI Chief Complaint: Respiratory Distress Time Seen by Provider: 11:35 Travel History International Travel<30 days: No Contact w/Intl Traveler<30days: No Traveled to known affect area: No History of Present Illness HPI 47-year-old male with history of hypertension, CAD, diabetes reported in his record, presents emergency department for evaluation of worsening shortness of breath over the last 2-3 days. Patient states he has not been recently ill. He has not had any fever or chills. He has had a intermittent nonproductive cough throughout today and yesterday. He denies any pain. He states he is unable to lie flat or do any activity without significant shortness of breath. Patient is currently being treated for an ulcer on his left lower extremity. The dressing is in place and intact. He tells me it has been healing well. He denies any nausea, vomiting, or diarrhea. He has no other symptoms to report. PFSH Past Medical History Autoimmune Disease: No Blood Disorders: No Cancer: No Cardiovascular Problems: Yes Diabetes: Yes Gastrointestinal Disorders: Yes (abdominal aneurysm) Genitourinary: No Headaches: Yes Hypertension: Yes Musculoskeletal: No Neurologic: Yes (headache) Psychiatric: No Respiratory: Yes Sleep Apnea: Yes Past Surgical History Abdominal Surgery: Yes (abdominal aortic aneursym repair 2007) AICD: No Cardiac Surgery: No Ear Surgery: No Endocrine Surgery: No Eye Surgery: No Gynecologic Surgery: No Neurologic Surgery: No Pacemaker: No Thoracic Surgery: No Other Surgery: Yes Social History Alcohol Use: Yes (occ) Tobacco Use: No Substance Use: No Allergies-Medications (Allergen,Severity, Reaction): Coded Allergies: No Known Allergies (Verified Allergy, Unknown, 10/07/17) Uncoded Allergies: nka (Allergy, Unknown, 02/26/03) Reported Meds & Prescriptions Reported Meds & Active Scripts Active Pantoprazole (Pantoprazole Sodium) 40 Mg Tab 40 Mg PO Q12HR 30 Days Nifedipine ER 24 HR (Nifedipine) 60 Mg Tab 60 Mg PO Q12HR 60 Days Lopressor (Metoprolol Tartrate) 50 Mg Tab 75 Mg PO Q12HR 30 Days Catapres (Clonidine) 0.1 Mg Tab 0.1 Mg PO Q12HR Hydrocodone-Acetamin 10-325 mg (Hydrocodone/Acetaminophen) 10 Mg-325 Mg Tablet 1 Tab PO Q6H PRN Reported Spironolactone 25 Mg Tab 25 Mg PO HS Triamterene-Hydrochlorothiazide 75-50 Mg Tab 1 Tab PO BID Hydralazine HCl 25 Mg Tablet 50 Mg PO TID Isosorbide Dinitrate 20 Mg Tab 20 Mg PO TID Terazosin (Terazosin HCl) 1 Mg Cap 1 Mg PO HS Review of Systems Except as stated in HPI: all other systems reviewed are Neg Physical Exam Narrative GENERAL: Well-nourished male patient, in mild distress SKIN: Focused skin assessment warm/dry. HEAD: Atraumatic. Normocephalic. EYES: Pupils equal and round. No scleral icterus. No injection or drainage. ENT: No nasal bleeding or discharge. Mucous membranes pink and moist. NECK: Trachea midline. No JVD. CARDIOVASCULAR: Tachycardic rate and rhythm. 2/6 systolic murmur appreciated. RESPIRATORY: Mild accessory muscle use. Diminished throughout, scattered rhonchi, intermittent expiratory wheeze to auscultation. Breath sounds equal bilaterally. GASTROINTESTINAL: Abdomen rotund, soft, nontender. No guarding or rebound tenderness. Hepatic and splenic margins not palpable. MUSCULOSKELETAL: No obvious deformities. No clubbing. No cyanosis. No edema. Distal pulses are palpable. Cap refills within normal limits. Left lower extremity dressing in place. NEUROLOGICAL: Awake and alert. No obvious cranial nerve deficits. Motor grossly within normal limits. Normal speech. PSYCHIATRIC: Appropriate mood and affect; insight and judgment normal. Data Data Last Documented VS Vital Signs Date Time Temp Pulse Resp B/P (MAP) Pulse Ox O2 Delivery O2 Flow Rate FiO2 11/22/17 13:33 78 18 174/98 (123) 98 Nasal Cannula 2.00 11/22/17 11:27 99.0 Orders Orders Electrocardiogram (11/22/17 ) Electrocardiogram (11/22/17 11:41) Basic Metabolic Panel (Bmp) (11/22/17 11:41) B-Type Natriuretic Peptide (11/22/17 11:41) Ckmb (Isoenzyme) Profile (11/22/17 11:41) Complete Blood Count With Diff (11/22/17 11:41) Magnesium (Mg) (11/22/17 11:41) Prothrombin Time / Inr (Pt) (11/22/17 11:41) Act Partial Throm Time (Ptt) (11/22/17 11:41) Troponin I (11/22/17 11:41) Ecg Monitoring (11/22/17 11:41) Bilateral Bp Monitoring (11/22/17 11:41) Iv Access Insert/Monitor (11/22/17 11:41) Oximetry (11/22/17 11:41) Oxygen Administration (11/22/17 11:41) Aspirin Chew (Aspirin Chew) (11/22/17 11:45) Sodium Chloride 0.9% Flush (Ns Flush) (11/22/17 11:45) Chest, Pa & Lat (11/22/17 11:41) Methylprednisolone So Succ Inj (Solumedr (11/22/17 11:45) Albuterol-Ipratropium Neb (Duoneb Neb) (11/22/17 11:45) CKMB (11/22/17 12:01) CKMB% (11/22/17 12:01) Ventilation & Perfusion Scan (11/22/17 ) Arterial Blood Gas (Abg) (11/22/17 ) Furosemide Inj (Lasix Inj) (11/22/17 13:45) Ct Thorax/ Chest Wo Iv Contras (11/22/17 ) Blood Culture (11/22/17 13:46) Ceftriaxone Inj (Rocephin Inj) (11/22/17 14:00) Azithromycin Inj (Zithromax Inj) (11/22/17 14:00) Azithromycin Inj (Zithromax Inj) (11/22/17 15:30) Ceftriaxone Inj (Rocephin Inj) (11/22/17 15:30) Labs Laboratory Tests Test 11/22/17 12:01 11/22/17 13:59 White Blood Count 9.3 TH/MM3 Red Blood Count 3.24 MIL/MM3 Hemoglobin 9.2 GM/DL Hematocrit 28.6 % Mean Corpuscular Volume 88.1 FL Mean Corpuscular Hemoglobin 28.3 PG Mean Corpuscular Hemoglobin Concent 32.1 % Red Cell Distribution Width 17.3 % Platelet Count 300 TH/MM3 Mean Platelet Volume 8.6 FL Neutrophils (%) (Auto) 80.6 % Lymphocytes (%) (Auto) 10.1 % Monocytes (%) (Auto) 8.1 % Eosinophils (%) (Auto) 0.8 % Basophils (%) (Auto) 0.4 % Neutrophils # (Auto) 7.5 TH/MM3 Lymphocytes # (Auto) 0.9 TH/MM3 Monocytes # (Auto) 0.8 TH/MM3 Eosinophils # (Auto) 0.1 TH/MM3 Basophils # (Auto) 0.0 TH/MM3 CBC Comment DIFF FINAL Differential Comment Prothrombin Time 10.4 SEC Prothromb Time International Ratio 1.0 RATIO Activated Partial Thromboplast Time 27.3 SEC Blood Urea Nitrogen 36 MG/DL Creatinine 3.39 MG/DL Random Glucose 135 MG/DL Calcium Level 8.6 MG/DL Magnesium Level 2.5 MG/DL Sodium Level 144 MEQ/L Potassium Level 3.8 MEQ/L Chloride Level 109 MEQ/L Carbon Dioxide Level 25.9 MEQ/L Anion Gap 9 MEQ/L Estimat Glomerular Filtration Rate 24 ML/MIN Total Creatine Kinase 147 U/L Creatine Kinase MB 1.1 NG/ML Troponin I LESS THAN 0.02 NG/ML B-Type Natriuretic Peptide 1215 PG/ML Blood Gas Puncture Site RT RADIAL Blood Gas Patient Temperature 98.6 Blood Gas HCO3 27 mmol/L Blood Gas Base Excess 2.1 mmol/L Blood Gas Oxygen Saturation 82 % Arterial Blood pH 7.39 Arterial Blood Partial Pressure CO2 44 mmHg Arterial Blood Partial Pressure O2 53 mmHG Arterial Blood Oxygen Content 10.7 Vol % Arterial Blood Carboxyhemoglobin 1.7 % Arterial Blood Methemoglobin 0.8 % Blood Gas Hemoglobin 9.2 G/DL Blood Gas Inspired Oxygen 21 % MDM Medical Decision Making Medical Screen Exam Complete: Yes Emergency Medical Condition: Yes Medical Record Reviewed: Yes Differential Diagnosis Acute onset CHF versus pneumonia versus PE versus bronchitis versus pulmonary edema versus sepsis Narrative Course 47-year-old male presents emergency department for evaluation of worsening shortness of breath over the last 2-3 days. Patient appears in mild distress secondary to difficulty breathing. Patient is given DuoNeb treatments and IV Solu-Medrol. Oxygen 2 L nasal cannula is applied. I discussed the patient my attending physician who is also assessed the patient. Laboratory Tests Test 11/22/17 12:01 11/22/17 13:59 White Blood Count 9.3 TH/MM3 Red Blood Count 3.24 MIL/MM3 Hemoglobin 9.2 GM/DL Hematocrit 28.6 % Mean Corpuscular Volume 88.1 FL Mean Corpuscular Hemoglobin 28.3 PG Mean Corpuscular Hemoglobin Concent 32.1 % Red Cell Distribution Width 17.3 % Platelet Count 300 TH/MM3 Mean Platelet Volume 8.6 FL Neutrophils (%) (Auto) 80.6 % Lymphocytes (%) (Auto) 10.1 % Monocytes (%) (Auto) 8.1 % Eosinophils (%) (Auto) 0.8 % Basophils (%) (Auto) 0.4 % Neutrophils # (Auto) 7.5 TH/MM3 Lymphocytes # (Auto) 0.9 TH/MM3 Monocytes # (Auto) 0.8 TH/MM3 Eosinophils # (Auto) 0.1 TH/MM3 Basophils # (Auto) 0.0 TH/MM3 CBC Comment DIFF FINAL Differential Comment Prothrombin Time 10.4 SEC Prothromb Time International Ratio 1.0 RATIO Activated Partial Thromboplast Time 27.3 SEC Blood Urea Nitrogen 36 MG/DL Creatinine 3.39 MG/DL Random Glucose 135 MG/DL Calcium Level 8.6 MG/DL Magnesium Level 2.5 MG/DL Sodium Level 144 MEQ/L Potassium Level 3.8 MEQ/L Chloride Level 109 MEQ/L Carbon Dioxide Level 25.9 MEQ/L Anion Gap 9 MEQ/L Estimat Glomerular Filtration Rate 24 ML/MIN Total Creatine Kinase 147 U/L Creatine Kinase MB 1.1 NG/ML Troponin I LESS THAN 0.02 NG/ML B-Type Natriuretic Peptide 1215 PG/ML Blood Gas Puncture Site RT RADIAL Blood Gas Patient Temperature 98.6 Blood Gas HCO3 27 mmol/L Blood Gas Base Excess 2.1 mmol/L Blood Gas Oxygen Saturation 82 % Arterial Blood pH 7.39 Arterial Blood Partial Pressure CO2 44 mmHg Arterial Blood Partial Pressure O2 53 mmHG Arterial Blood Oxygen Content 10.7 Vol % Arterial Blood Carboxyhemoglobin 1.7 % Arterial Blood Methemoglobin 0.8 % Blood Gas Hemoglobin 9.2 G/DL Blood Gas Inspired Oxygen 21 % Respiratory has placed patient on 6 L oxygen due to hypoxia identified on blood gas. Last Impressions Chest X-Ray 11/22/17 1141 Signed Impressions: CONCLUSION: 1. Abnormal perihilar and lower lung zone interstitial opacity and airspace co nsolidation, new since the prior study from approximately one month ago. The di stribution and appearance are suggestive of pulmonary edema. 2. Stable mild enlargement of the cardiac silhouette. Chest CT 11/22/17 0000 Signed Impressions: CONCLUSION: 1. Patchy infiltrates in the medial right lung, possible multifocal bronchopne umonia Patient is given IV Rocephin and azithromycin. A call was placed to [facility] for [facility]. VQ scan is still pending. Sepsis Criteria SIRS Criteria (2 or more): Heart rate over 90, RR > 20 or PaCO2 < 32 Sepsis Criteria (SIRS+source): Infect source susp/known Diagnosis Primary Impression: Sepsis Qualified Codes: A41.9 - Sepsis, unspecified organism Additional Impressions: Pneumonia Qualified Codes: J18.9 - Pneumonia, unspecified organism Hypoxia Pulmonary edema Qualified Codes: J81.0 - Acute pulmonary edema Admitting Information Admitting Physician Requests: Admit Condition: Stable Shy Kamara Nov 22, 2017 11:42
[2017-11-22] MEDS ORDERED: methylPREDNISolone SOD SUCC 125 MG/2 ML VIAL IV PUSH ONE (11:45)
[2017-11-22] MEDS ORDERED: SODIUM CHLORIDE 0.9% FLUSH 10 ML FLUSH IVF PRN (11:45)
[2017-11-22] MEDS ORDERED: ASPIRIN 81 MG CHEW TAB PO ONE (11:45)
[2017-11-22] MEDS: RESP: ALBUTEROL 2.5 MG/IPRATROPIUM 0.5 MG NEB (SCH) INH ×2 (12:00→12:06)
[2017-11-22] MEDS ORDERED: SPIR25TA PO (12:07)
[2017-11-22] MEDS ORDERED: HYDR-3799 PO (12:07)
[2017-11-22] MEDS ORDERED: TRIA1TAB5 PO (12:07)
[2017-11-22 12:43] LABS: AUTOMATED NEUTROPHIL # 7.5 TH/MM3 (1.8-7.7); BASOPHIL % 0.4 % (0.0-2.0); EOSINOPHIL # 0.1 TH/MM3 (0-0.4); EOSINOPHIL % 0.8 % (0.0-4.0); HEMATOCRIT 28.6 % (39.0-51.0); HEMOGLOBIN 9.2 GM/DL (13.0-17.0); LYMPH % 10.1 % (9.0-44.0); LYMPHOCYTE # 0.9 TH/MM3 (1.0-4.8); MEAN CELL VOLUME 88.1 FL (80.0-100.0); MEAN CORPUSCULAR HEMOGLOBIN 28.3 PG (27.0-34.0); MEAN CORPUSCULAR HGB CONC 32.1 % (32.0-36.0); MEAN PLATELET VOLUME 8.6 FL (7.0-11.0); MONO % 8.1 % (0.0-8.0); MONOCYTE # 0.8 TH/MM3 (0-0.9); NEUT % 80.6 % (16.0-70.0); PLATELET COUNT 300 TH/MM3 (150-450); RED BLOOD COUNT 3.24 MIL/MM3 (4.50-5.90); RED CELL DISTRIBUTION WIDTH 17.3 % (11.6-17.2); WHITE BLOOD COUNT 9.3 TH/MM3 (4.0-11.0)
[2017-11-22 12:59] LABS: PROTHROMBIN TIME - PATIENT 10.4 SEC (9.8-11.6)
[2017-11-22 13:11] LABS: BICARBONATE 25.9 MEQ/L (21.0-32.0); BLOOD UREA NITROGEN 36 MG/DL (7-18); CALCIUM 8.6 MG/DL (8.5-10.1); CHLORIDE 109 MEQ/L (98-107); CREATININE 3.39 MG/DL (0.60-1.30); GLOMERULAR FILTRATION RATE 24 ML/MIN (>89); GLUCOSE,RANDOM 135 MG/DL (74-106); MAGNESIUM 2.5 MG/DL (1.5-2.5); SODIUM (NA) 144 MEQ/L (136-145)
--- NOTE | 2017-11-22 13:14 | RADRPT ---
EXAM DATE: 11/22/2017 1:06 PM EDT AGE/SEX: 47 years / Male INDICATIONS: Short of breath. CLINICAL DATA: This is the patient's initial encounter. Patient reports that signs and symptoms have been present for 1 day and indicates a pain score of Nonresponsive. MEDICAL/SURGICAL HISTORY: Non-responsive. Non-responsive. COMPARISON: [facility] [place], CHEST SINGLE AP, 10/29/2017. . FINDINGS: Frontal and lateral views of the chest demonstrate stable mild enlargement of the cardiac silhouette. There is abnormal perihilar and lower lung zone interstitial opacity bilaterally. No pneumothorax or pleural effusion is identified. Bones and soft tissues demonstrate no acute finding. CONCLUSION: 1. Abnormal perihilar and lower lung zone interstitial opacity and airspace consolidation, new since the prior study from approximately one month ago. The distribution and appearance are suggestive of pulmonary edema. 2. Stable mild enlargement of the cardiac silhouette. Electronically signed by: Cruz Salazar MD 11/22/2017 1:12 PM EDT
[2017-11-22 13:16] LABS: TROPONIN I LESS THAN 0.02 NG/ML (0.02-0.05)
[2017-11-22] MEDS ORDERED: FUROSEMIDE 40 MG/4 ML VIAL IV PUSH ONE (13:45)
--- NOTE | 2017-11-22 13:52 | PD ---
Physical Exam Date Seen by Provider: Nov 22, 2017 Data Data Last Documented VS Vital Signs Date Time Temp Pulse Resp B/P (MAP) Pulse Ox O2 Delivery O2 Flow Rate FiO2 11/22/17 13:33 78 18 174/98 (123) 98 Nasal Cannula 2.00 11/22/17 11:27 99.0 Orders Orders Electrocardiogram (11/22/17 ) Electrocardiogram (11/22/17 11:41) Basic Metabolic Panel (Bmp) (11/22/17 11:41) B-Type Natriuretic Peptide (11/22/17 11:41) Ckmb (Isoenzyme) Profile (11/22/17 11:41) Complete Blood Count With Diff (11/22/17 11:41) Magnesium (Mg) (11/22/17 11:41) Prothrombin Time / Inr (Pt) (11/22/17 11:41) Act Partial Throm Time (Ptt) (11/22/17 11:41) Troponin I (11/22/17 11:41) Ecg Monitoring (11/22/17 11:41) Bilateral Bp Monitoring (11/22/17 11:41) Iv Access Insert/Monitor (11/22/17 11:41) Oximetry (11/22/17 11:41) Oxygen Administration (11/22/17 11:41) Aspirin Chew (Aspirin Chew) (11/22/17 11:45) Sodium Chloride 0.9% Flush (Ns Flush) (11/22/17 11:45) Chest, Pa & Lat (11/22/17 11:41) Methylprednisolone So Succ Inj (Solumedr (11/22/17 11:45) Albuterol-Ipratropium Neb (Duoneb Neb) (11/22/17 11:45) CKMB (11/22/17 12:01) CKMB% (11/22/17 12:01) Ventilation & Perfusion Scan (11/22/17 ) Arterial Blood Gas (Abg) (11/22/17 ) Furosemide Inj (Lasix Inj) (11/22/17 13:45) Ct Thorax/ Chest Wo Iv Contras (11/22/17 ) Blood Culture (11/22/17 13:46) Ceftriaxone Inj (Rocephin Inj) (11/22/17 14:00) Azithromycin Inj (Zithromax Inj) (11/22/17 14:00) Azithromycin Inj (Zithromax Inj) (11/22/17 15:30) Ceftriaxone Inj (Rocephin Inj) (11/22/17 15:30) Labs Laboratory Tests Test 11/22/17 12:01 11/22/17 13:59 White Blood Count 9.3 TH/MM3 Red Blood Count 3.24 MIL/MM3 Hemoglobin 9.2 GM/DL Hematocrit 28.6 % Mean Corpuscular Volume 88.1 FL Mean Corpuscular Hemoglobin 28.3 PG Mean Corpuscular Hemoglobin Concent 32.1 % Red Cell Distribution Width 17.3 % Platelet Count 300 TH/MM3 Mean Platelet Volume 8.6 FL Neutrophils (%) (Auto) 80.6 % Lymphocytes (%) (Auto) 10.1 % Monocytes (%) (Auto) 8.1 % Eosinophils (%) (Auto) 0.8 % Basophils (%) (Auto) 0.4 % Neutrophils # (Auto) 7.5 TH/MM3 Lymphocytes # (Auto) 0.9 TH/MM3 Monocytes # (Auto) 0.8 TH/MM3 Eosinophils # (Auto) 0.1 TH/MM3 Basophils # (Auto) 0.0 TH/MM3 CBC Comment DIFF FINAL Differential Comment Prothrombin Time 10.4 SEC Prothromb Time International Ratio 1.0 RATIO Activated Partial Thromboplast Time 27.3 SEC Blood Urea Nitrogen 36 MG/DL Creatinine 3.39 MG/DL Random Glucose 135 MG/DL Calcium Level 8.6 MG/DL Magnesium Level 2.5 MG/DL Sodium Level 144 MEQ/L Potassium Level 3.8 MEQ/L Chloride Level 109 MEQ/L Carbon Dioxide Level 25.9 MEQ/L Anion Gap 9 MEQ/L Estimat Glomerular Filtration Rate 24 ML/MIN Total Creatine Kinase 147 U/L Creatine Kinase MB 1.1 NG/ML Troponin I LESS THAN 0.02 NG/ML B-Type Natriuretic Peptide 1215 PG/ML Blood Gas Puncture Site RT RADIAL Blood Gas Patient Temperature 98.6 Blood Gas HCO3 27 mmol/L Blood Gas Base Excess 2.1 mmol/L Blood Gas Oxygen Saturation 82 % Arterial Blood pH 7.39 Arterial Blood Partial Pressure CO2 44 mmHg Arterial Blood Partial Pressure O2 53 mmHG Arterial Blood Oxygen Content 10.7 Vol % Arterial Blood Carboxyhemoglobin 1.7 % Arterial Blood Methemoglobin 0.8 % Blood Gas Hemoglobin 9.2 G/DL Blood Gas Inspired Oxygen 21 % [facility] Medical Record Reviewed: Yes Supervised Visit with MONICA: Yes Narrative Course I, Dr. Rocha, have reviewed the advance practice practitioner's documentation and am in agreement, met with the patient face to face, made the diagnosis, and the medical decision making was done by me. *My assessment and Findings: Patient is a 47-year-old male with history of hypertension who presents the emergency room with complaints of shortness of breath. Patient reports that for the past 3 days, he has been feeling shortness of breath at rest as well as on exertion, reports that today he developed pleuritic chest pain. Reports that he has also had a dry cough. Denies any fever/chills. Patient was sent to the emergency room by his foot and ankle specialist for evaluation of shortness of breath as well as for evaluation of his chronic ulcerations to his lower extremities. Patient presents the emergency room hypoxic with a pulse ox of 91% on room air with a respiratory rate of 34. He does have labored breathing. Patient was given 125 mg of Solu-Medrol as well as 3 DuoNeb's, he was also given 60 mg of IV Lasix as x-ray of the chest shows Last Impressions Chest X-Ray 11/22/171140 Signed Impressions: CONCLUSION: 1. Abnormal perihilar and lower lung zone interstitial opacity and airspace co nsolidation, new since the prior study from approximately one month ago. The di stribution and appearance are suggestive of pulmonary edema. 2. Stable mild enlargement of the cardiac silhouette. CT the chest without contrast was ordered as I am concerned for possible consolidation with vangie pulmonary edema. VQ scan ordered for evaluation of possible PE. Patient will be pancultured, antibiotics will be started. He was given 60mg of lasix IV for CHF exacerbation which patient denies history of. Last Impressions Chest X-Ray 11/22/17 114 Signed Impressions: CONCLUSION: 1. Abnormal perihilar and lower lung zone interstitial opacity and airspace co nsolidation, new since the prior study from approximately one month ago. The di stribution and appearance are suggestive of pulmonary edema. 2. Stable mild enlargement of the cardiac silhouette. Chest CT 11/22/17 0000 Signed Impressions: CONCLUSION: 1. Patchy infiltrates in the medial right lung, possible multifocal bronchopne umonia Ct of chest with patchy infiltrates - patient has been pancultured and antibiotics have been given. Patient will require admission to the hospital at this time. Critical Care Narrative Aggregate critical care time was 30 minutes. Time to perform other separately billable procedures was not included in the critical care time. My time did not include minutes spent treating any other patients simultaneously or on activities that did not directly contribute to the patient's treatment. The services I provided to this patient were to treat and/or prevent clinically significant deterioration that could result in: , decompensation, deterioration I provided critical care services requiring my management, as noted below: Chart data review, documentation time, medication orders and management, vital sign assessments/reviewing monitor data, ordering and reviewing lab tests, ordering and interpreting/reviewing x-rays and diagnostic studies, care of the patient and discussion of the patient with the admitting physicians. Diagnosis Primary Impression: Acute exacerbation of CHF (congestive heart failure) Qualified Codes: I50.9 - Heart failure, unspecified Additional Impressions: Pulmonary edema Qualified Codes: J81.0 - Acute pulmonary edema Pneumonia Qualified Codes: J18.9 - Pneumonia, unspecified organism Admitting Information Admitting Physician Requests: Admit Alessia Rocha DO Nov 22, 2017 13:52
[2017-11-22] MEDS ORDERED: AZITHROMYCIN INJ 500 MG in SODIUM CHLOR 0.9% 250 ML INJ 250 ML IV ONE ×2 (14:00→15:30)
[2017-11-22] MEDS ORDERED: cefTRIAXone INJ 1,000 MG in SODIUM CHLORIDE 0.9% INJ 100 ML IV ONE ×2 (14:00→15:30)
--- NOTE | 2017-11-22 15:28 | RADRPT ---
EXAM DATE: 11/22/2017 3:15 PM EDT AGE/SEX: 47 years / Male INDICATIONS: SHORT OF BREATH CLINICAL DATA: This is the patient's initial encounter. Patient reports that signs and symptoms have been present for 1 day and indicates a pain score of 7/10. MEDICAL/SURGICAL HISTORY: Cardiovascular disease. Hypertension. Diabetes. Abdominal aortic aneury sm repair. RADIATION DOSE: 20.84 CTDI (mGy) COMPARISON: No prior [facility] exams available for comparison. TECHNIQUE: Multiple contiguous axial images were obtained through the chest without contrast. Image s were obtained in suspended respiration using multiple row detector helical technique. Using [place] exposure control and adjustment of the mA and/or kV according to patient size, radiation dose was kept as low as reasonably achievable to obtain optimal diagnostic quality images. FINDINGS: Lungs: There are patchy nodular infiltrates in the right perihilar region involving the right middle right lower and right upper lobes. Glenohumeral disease in the lingula. Mediastinum: There is good visualization of the great vessels of the middle mediastinum. No evidenc e of mediastinal or hilar adenopathy/mass. Small pericardial effusion. Heart is slightly enlarged Pleurae: No evidence of focal thickening or pleural effusion. Axillae: Unremarkable. Bony Structures: Unremarkable. Miscellaneous: The examination was extended to include the upper abdomen, and both adrenal glands ar e normal in size and configuration. CONCLUSION: 1. Patchy infiltrates in the medial right lung, possible multifocal bronchopneumonia Electronically signed by: Valentino Rodriguez MD 11/22/2017 3:27 PM EDT
--- NOTE | 2017-11-22 16:30 | RADRPT ---
EXAM DATE: 11/22/2017 3:56 PM EDT AGE/SEX: 47 years / Male INDICATIONS: Short of breath. CLINICAL DATA: This is the patient's initial encounter. Patient reports that signs and symptoms have been present for 1 day and indicates a pain score of 3/10. MEDICAL/SURGICAL HISTORY: Hypertension. Diabetes mellitus type II. . Aortic aneurysm. COMPARISON: No prior [facility] exams available for comparison. DOSE: 1.6 mCi Tc99m DTPA aerosol 8.1 mCi Tc99m MAA IV TECHNIQUE: Following five minutes of tidal breathing of DTPA aerosol, planar images of the lungs wer e performed in eight projections. The patient was then injected with MAA, and eight-view perfusion s can was performed. FINDINGS: Heart is enlarged There is a homogeneous pattern of aerosol delivery to the periphery of both lungs. No focal ventilat ory defects are seen. The perfusion lung scan demonstrates a homogenous pattern of uptake in both lungs. No segmental or s ubsegmental defects are seen. CONCLUSION: 1. Cardiomegaly. No evidence of mismatch is to suggest pulmonary embolus Electronically signed by: Valentino Rodriguez MD 11/22/2017 4:28 PM EDT
[2017-11-22] MEDS ORDERED: SODIUM CHLORIDE 0.9% FLUSH 10 ML FLUSH IV FLUSH PRN (17:00)
[2017-11-22] MEDS: METOLAZONE 2.5 MG TAB PO SCH (17:00)
--- NOTE | 2017-11-22 17:18 | HHI.HP ---
[facility] Service [facility] Primary Care Physician Blayne Zavala M.D. Admission Diagnosis Sepsis; PNA; Hypoxia Diagnoses: Chief Complaint: Shortness of breath Travel History International Travel<30 Days: No Contact w/Intl Traveler <30 Da: No Traveled to Known Affected Are: No History of Present Illness 47-year-old obese male with a history of congestive heart failure, chronic kidney disease stage 3, hypertension, gastritis presents to the emergency room with a 3 day history of worsening shortness of breath and dry cough. Patient reports the shortness of breath is worse with physical exertion and lying flat. He also noted increased swelling in the lower legs along with increased swelling of the abdomen area during the past 3 days. He has not had any increase intake and fluids or unusual food intake. He was seen by nursing officer Dr. Zaidi today who changes bandage for his chronic left lower leg wound and recommended him going to the emergency room for further evaluation and consult to continue with podiatry for local wound care. He had show me a prescription stating that he had recent Pseudomonas in his wound. He was just released from the hospital back in November 01 for GI bleed with findings of gastritis and gastric ulcer requiring embolization and having left lower leg wound growing out Proteus and E. coli. He denies any underlying chills or fever. Review of Systems Constitutional: COMPLAINS OF: Change in appetite, DENIES: Diaphoretic episodes , Fatigue, Fever, Chills Endocrine: DENIES: Heat/cold intolerance Eyes: DENIES: Blurred vision, Eye pain, Vision loss Ears, nose, mouth, throat: DENIES: Hearing loss, Nasal discharge, Throat pain, Ear Pain, Sinus Pain Respiratory: COMPLAINS OF: Cough, Shortness of breath, DENIES: Wheezing, Hemoptysis, Sputum production Cardiovascular: COMPLAINS OF: Dyspnea on Exertion, PND, Lower Extremity Edema, Orthopnea, DENIES: Chest pain, Palpitations Gastrointestinal: DENIES: Abdominal pain, Black stools, Bloody stools, Constipation, Diarrhea, Nausea, Vomiting Musculoskeletal: DENIES: Joint pain, Muscle aches, Stiffness Integumentary: COMPLAINS OF: Rash Hematologic/lymphatic: DENIES: Bruising, Lymphadenopathy Immunologic/allergic: DENIES: Eczema Neurologic: DENIES: Headache, Localized weakness, Paresthesias Psychiatric: DENIES: Anxiety, Depression, Suicidal Ideation Chronic wound the left lower leg Past Family Social History Past Medical History Congestive heart failure Chronic kidney disease stage III Hypertension Chronic left lower extremity wound Gastritis Gastric ulcer Past Surgical History AAA repair Left leg surgery for chronic wound Reported Medications Pantoprazole (Pantoprazole Sodium) 40 Mg Tab 40 Mg PO Q12HR 30 Days Nifedipine ER 24 HR (Nifedipine) 60 Mg Tab 60 Mg PO Q12HR 60 Days Lopressor (Metoprolol Tartrate) 50 Mg Tab 75 Mg PO Q12HR 30 Days Catapres (Clonidine) 0.1 Mg Tab 0.1 Mg PO Q12HR Hydrocodone-Acetamin 10-325 mg (Hydrocodone/Acetaminophen) 10 Mg-325 Mg Tablet 1 Tab PO Q6H PRN Spironolactone 25 Mg Tab 25 Mg PO HS Triamterene-Hydrochlorothiazide 75-50 Mg Tab 1 Tab PO BID Hydralazine HCl 25 Mg Tablet 50 Mg PO TID Isosorbide Dinitrate 20 Mg Tab 20 Mg PO TID Terazosin (Terazosin HCl) 1 Mg Cap 1 Mg PO HS Allergies: Coded Allergies: No Known Allergies (Verified Allergy, Unknown, 10/07/17) Uncoded Allergies: nka (Allergy, Unknown, 02/26/03) Family History Mother had end-stage renal disease requiring hemodialysis Social History Does not smoke cigarettes or drink alcohol Physical Exam Vital Signs Vital Signs Date Time Temp Pulse Resp B/P (MAP) Pulse Ox O2 Delivery O2 Flow Rate FiO2 11/22/17 13:33 78 18 174/98 (123) 98 Nasal Cannula 2.00 11/22/17 11:53 98 Nasal Cannula 2.00 11/22/17 11:39 69 24 178/93 (121) 96 Nasal Cannula 2.00 11/22/17 11:27 99.0 68 34 160/93 (115) 91 Physical Exam GENERAL: This is a well-nourished, obese, well-developed patient, in no apparent distress. SKIN: Left lower leg bandage clean dry and intact, do not remove to examine as patient had dressing just done in nursing officer office this morning. Cool and dry. HEAD: Atraumatic. Normocephalic. No temporal or scalp tenderness. EYES: Pupils equal round and reactive. Extraocular motions intact. No scleral icterus. No injection or drainage. ENT: Nose without bleeding, purulent drainage or septal hematoma. Throat without erythema, tonsillar hypertrophy or exudate. Uvula midline. Airway patent. NECK: Trachea midline. No JVD or lymphadenopathy. Supple, nontender, no meningeal signs. CARDIOVASCULAR: Regular rate and rhythm RESPIRATORY: Diminished breath sounds bilaterally in the bases with few bibasilar crackles GASTROINTESTINAL: Abdomen soft, non-tender, obese, nondistended. No guarding. Normoactive bowel sounds MUSCULOSKELETAL: Extremities without clubbing, cyanosis, 2+ edema left lower leg , bandage clean dry intact NEUROLOGICAL: Awake and alert to person place time. Cranial nerves II through XII intact. Motor and sensory grossly within normal limits although he had generalized weakness and had hard time even sitting up without assistance. Normal speech. Laboratory Laboratory Tests Test 11/22/17 12:01 11/22/17 13:59 White Blood Count 9.3 Red Blood Count 3.24 Hemoglobin 9.2 Hematocrit 28.6 Mean Corpuscular Volume 88.1 Mean Corpuscular Hemoglobin 28.3 Mean Corpuscular Hemoglobin Concent 32.1 Red Cell Distribution Width 17.3 Platelet Count 300 Mean Platelet Volume 8.6 Neutrophils (%) (Auto) 80.6 Lymphocytes (%) (Auto) 10.1 Monocytes (%) (Auto) 8.1 Eosinophils (%) (Auto) 0.8 Basophils (%) (Auto) 0.4 Neutrophils # (Auto) 7.5 Lymphocytes # (Auto) 0.9 Monocytes # (Auto) 0.8 Eosinophils # (Auto) 0.1 Basophils # (Auto) 0.0 CBC Comment DIFF FINAL Differential Comment Prothrombin Time 10.4 Prothromb Time International Ratio 1.0 Activated Partial Thromboplast Time 27.3 Blood Urea Nitrogen 36 Creatinine 3.39 Random Glucose 135 Calcium Level 8.6 Magnesium Level 2.5 Sodium Level 144 Potassium Level 3.8 Chloride Level 109 Carbon Dioxide Level 25.9 Anion Gap 9 Estimat Glomerular Filtration Rate 24 Total Creatine Kinase 147 Creatine Kinase MB 1.1 Troponin I LESS THAN 0.02 B-Type Natriuretic Peptide 1215 Blood Gas Puncture Site RT RADIAL Blood Gas Patient Temperature 98.6 Blood Gas HCO3 27 Blood Gas Base Excess 2.1 Blood Gas Oxygen Saturation 82 Arterial Blood pH 7.39 Arterial Blood Partial Pressure CO2 44 Arterial Blood Partial Pressure O2 53 Arterial Blood Oxygen Content 10.7 Arterial Blood Carboxyhemoglobin 1.7 Arterial Blood Methemoglobin 0.8 Blood Gas Hemoglobin 9.2 Blood Gas Inspired Oxygen 21 Date/Time Source Procedure Growth Status 11/22/17 14:42 Blood Peripheral Aerobic Blood Culture Pending Received 11/22/17 14:42 Blood Peripheral Anaerobic Blood Culture Pending Received Result Diagram: 11/22/17 1201 11/22/17 1201 Imaging Last Impressions Chest X-Ray 11/22/17 1141 Signed Impressions: CONCLUSION: 1. Abnormal perihilar and lower lung zone interstitial opacity and airspace co nsolidation, new since the prior study from approximately one month ago. The di stribution and appearance are suggestive of pulmonary edema. 2. Stable mild enlargement of the cardiac silhouette. Lung Scan-VQ Nuclear Medicine 11/22/17 0000 Signed Impressions: CONCLUSION: 1. Cardiomegaly. No evidence of mismatch is to suggest pulmonary embolus Chest CT 11/22/17 0000 Signed Impressions: CONCLUSION: 1. Patchy infiltrates in the medial right lung, possible multifocal bronchopne umonia Course EKG sinus rhythm with incomplete right bundle branch block Caprini VTE Risk Assessment Caprini VTE Risk Assessment: Mod/High Risk (score >= 2) Caprini Risk Assessment Model Point Value = 1 Point Value = 2 Point Value = 3 Point Value = 5 Age 41-60 Minor surgery BMI > 25 kg/m2 Swollen legs Varicose veins or History of unexplained or recurrent spontaneous Oral contraceptives or hormone replacement Sepsis (< 1 month) Serious lung disease, including pneumonia (< 1 month) Abnormal pulmonary function Acute myocardial infarction Congestive heart failure (< 1 month) History of inflammatory bowel disease Medical patient at bed rest Age 61-74 Arthroscopic surgery Major open surgery (> 45 min) Laparoscopic surgery (> 45 min) Malignancy Confined to bed (> 72 hours) Immobilizing plaster cast Central venous access Age >= 75 History of VTE Family history of VTE Factor V Leiden Prothrombin [id number] Lupus anticoagulant Anticardiolipin antibodies Elevated serum homocysteine Heparin-induced thrombocytopenia Other congenital or acquired thrombophilia Stroke (< 1 month) Elective arthroplasty Hip, pelvis, or leg fracture Acute spinal cord injury (< 1 month) Prophylaxis Regimen Total Risk Factor Score Risk Level Prophylaxis Regimen 0-1 Low Early ambulation 2 Moderate Order ONE of the following: *Sequential Compression Device (SCD) *Heparin 5000 units SQ BID 3-4 Higher Order ONE of the following medications: *Heparin 5000 units SQ TID *Enoxaparin/Lovenox 40 mg SQ daily (WT < 150 kg, CrCl > 30 mL/min) *Enoxaparin/Lovenox 30 mg SQ daily (WT < 150 kg, CrCl > 10-29 mL/min) *Enoxaparin/Lovenox 30 mg SQ BID (WT < 150 kg, CrCl > 30 mL/min) AND/OR *Sequential Compression Device (SCD) 5 or more Highest Order ONE of the following medications: *Heparin 5000 units SQ TID (Preferred with Epidurals) *Enoxaparin/Lovenox 40 mg SQ daily (WT < 150 kg, CrCl > 30 mL/min) *Enoxaparin/Lovenox 30 mg SQ daily (WT < 150 kg, CrCl > 10-29 mL/min) *Enoxaparin/Lovenox 30 mg SQ BID (WT < 150 kg, CrCl > 30 mL/min) AND *Sequential Compression Device (SCD) Assessment and Plan Assessment and Plan 1. Acute exacerbation of diastolic congestive heart failure continue close monitoring of intake and output especially due to his acute kidney injury superimposed on chronic kidney disease stage III. Continue diuretics with Bumex , Zaroxolyn. Wean oxygen as tolerated. 2D echo done in August 2016 revealed diastolic dysfunction with EF of 60% 2. Hospital acquired bronchopneumonia will place the patient on cefepime IV and Zithromax as patient had a recent hospital stay. Continue supportive care and oxygen as needed. 3. Hypertension, chronic essential resume home antihypertensives 4. Gastritis PPI 5. DVT prophylaxis heparin 6. Chronic left lower leg wound obtain podiatry consultation. There was no with possible indications for recent Pseudomonas infection of the wound. Cefepime IV for coverage. 7. Acute kidney injury superimposed on chronic kidney disease stage III - nephrology consultation; monitor closely on diuretics. Avoid nephro toxin. Further recommendations per nephrology. Physician Certification 2 Midnight Certification Type: Admission for Inpatient Services Order for Inpatient Services The services are ordered in accordance with Medicare regulations or non- Medicare payer requirements, as applicable. In the case of services not specified as inpatient-only, they are appropriately provided as inpatient services in accordance with the 2-midnight benchmark. Estimated LOS (days): 4 days is the estimated time the patient will need to remain in the hospital, assuming treatment plan goals are met and no additional complications. Post-Hospital Plan: Home Health Mirian Dejesus MD Nov 22, 2017 17:18
[2017-11-22] MEDS ORDERED: RESP: ALBUTEROL 2.5 MG/3 ML NEB (PRN) INH (18:00)
[2017-11-22] MEDS: ISOSORBIDE DINITRATE 20 MG TAB PO SCH (18:22)
[2017-11-22] MEDS: hydrALAZINE HCL 25 MG TAB PO SCH (18:23)
[2017-11-22] MEDS: cloNIDine HCL 0.1 MG TAB PO SCH (23:06)
[2017-11-22] MEDS: PANTOPRAZOLE SOD 40 MG DELAYED RELEASE TAB PO SCH (23:06)
[2017-11-22] MEDS: TERAZOSIN HCL 1 MG CAP PO SCH (23:06)
[2017-11-22] MEDS: NIFEdipine 60 MG SUSTAINED RELEASE TAB PO SCH (23:06)
[2017-11-22] MEDS: HEPARIN SODIUM - SQ 10,000 UNITS/ML VIAL SQ SCH (23:07)
[2017-11-22] MEDS: SODIUM CHLORIDE 0.9% FLUSH 10 ML FLUSH IV FLUSH SCH (23:07)
[2017-11-22] MEDS: METOPROLOL TARTRATE 25 MG TAB PO SCH (23:07)
[2017-11-23] VITALS (25 sets, daily range): BP systolic 145–165; BP diastolic 59–98; PULSE 61–90; RESP 20–23; TEMP 97.4–98.4; O2SAT 95–100
[2017-11-23] MEDS: CEFEPIME INJ 2,000 MG in SODIUM CHLORIDE 0.9% INJ 100 ML IV SCH ×3 (00:22→20:33)
[2017-11-23] MEDS: SODIUM CHLORIDE 0.9% FLUSH 10 ML FLUSH IV FLUSH SCH ×2 (09:00→20:35)
[2017-11-23] MEDS: hydrALAZINE HCL 25 MG TAB PO SCH ×3 (09:27→18:17)
[2017-11-23] MEDS: NIFEdipine 60 MG SUSTAINED RELEASE TAB PO SCH ×2 (09:27→20:34)
[2017-11-23] MEDS: METOPROLOL TARTRATE 25 MG TAB PO SCH ×2 (09:27→20:34)
[2017-11-23] MEDS: PANTOPRAZOLE SOD 40 MG DELAYED RELEASE TAB PO SCH ×2 (09:27→20:34)
[2017-11-23] MEDS: METOLAZONE 2.5 MG TAB PO SCH (09:27)
[2017-11-23] MEDS: cloNIDine HCL 0.1 MG TAB PO SCH ×2 (09:27→20:34)
[2017-11-23] MEDS: ISOSORBIDE DINITRATE 20 MG TAB PO SCH ×3 (09:28→18:16)
[2017-11-23] MEDS: HEPARIN SODIUM - SQ 10,000 UNITS/ML VIAL SQ SCH ×2 (09:28→20:34)
--- NOTE | 2017-11-23 10:44 | PD.CONS ---
[facility] Service Nephrology Consult Requested By Dr. Dejesus Reason for Consult Acute kidney injury on chronic kidney injury Primary Care Physician Blayne Zavala M.D. History of Present Illness Patient is a 47-year-old obese male with a history of congestive heart failure, chronic kidney disease stage 3, hypertension, sleep apnea, chronic lower extrermity leg ulcer and obesity. Presents to the emergency room with a 3 day history of worsening shortness of breath and dry cough. Patient reports the shortness of breath is worse with physical exertion and lying flat. He was seen by tank pumper Dr. Zaidi today who changes bandage for his chronic left lower leg wound and recommended him going to the emergency room for further evaluation. Nephrology is consulted for acute on chronic renal failure with a creatinine of 3.39. His baseline creatinine is at 2.5 to 3.0 and his mold closer is Dr. Florez. he is currently on lasix BID with elevated BNP and chest xray with possible pulmonary edema. He reports that his shortness of breath is improving. (Zehra Dela Cruz) Review of Systems Constitutional: COMPLAINS OF: Fatigue Respiratory: COMPLAINS OF: Cough, Shortness of breath Cardiovascular: COMPLAINS OF: Dyspnea on Exertion, Orthopnea, DENIES: Chest pain, Palpitations Gastrointestinal: DENIES: Diarrhea, Nausea, Vomiting Musculoskeletal: DENIES: Joint pain Psychiatric: COMPLAINS OF: Anxiety (Zehra Dela Cruz) Past Family Social History Allergies: Coded Allergies: No Known Allergies (Verified Allergy, Unknown, 10/07/17) Uncoded Allergies: nka (Allergy, Unknown, 02/26/03) Past Medical History CHF Anemia Renal failure Hypertension chronic left lower extremity large ulcer Obesity Past Surgical History AAA repair Left leg surgery for chronic wound Active Ordered Medications Current Medications Medications (Trade) Dose Ordered Sig/Stan Route Start Time Stop Time Status Last Admin (NS Flush) 2 ml UNSCH PRN IVF 11/22/17 11:45 (NS Flush) 2 ml BID IV FLUSH 11/22/17 21:00 11/22/17 23:07 (NS Flush) 2 ml UNSCH PRN IV FLUSH 11/22/17 17:00 (Zaroxolyn) 2.5 mg DAILY PO 11/22/17 17:00 11/23/17 09:27 (Heparin Inj) 5,000 units Q12HR SQ 6/5/18 21:00 11/23/17 09:28 (Albuterol Neb) 2.5 mg Q2HR NEB PRN INH 11/22/17 18:00 11/22/17 18:33 Cefepime HCl 2000 mg/Sodium Chloride 100 ml @ 200 mls/hr BID IV 11/22/17 21:00 11/23/17 09:28 (Zithromax) 500 mg Q24H PO 11/23/17 16:00 (Catapres) 0.1 mg Q12HR PO 11/22/17 21:00 11/23/17 09:27 (Apresoline) 50 mg TID PO 11/22/17 18:00 11/23/17 09:27 (Isordil) 20 mg TID PO 11/22/17 18:00 11/23/17 09:28 (Lopressor) 75 mg Q12HR PO 11/22/17 21:00 11/23/17 09:27 (Procardia Xl) 60 mg Q12HR PO 11/22/17 21:00 11/23/17 09:27 (Protonix) 40 mg Q12HR PO 11/22/17 21:00 11/23/17 09:27 (Hytrin) 1 mg HS PO 11/22/17 21:00 11/22/17 23:06 Family History Mother with diabetes Social History non smoker rare ETOH use (Zehra Dela Cruz) Physical Exam Vital Signs Vital Signs Date Time Temp Pulse Resp B/P (MAP) Pulse Ox O2 Delivery O2 Flow Rate FiO2 11/23/17 08:00 63 11/23/17 07:50 97.5 66 20 165/95 (118) 96 11/23/17 07:00 66 11/23/17 05:07 65 11/23/17 05:07 77 20 96 11/23/17 03:00 61 11/23/17 01:00 72 11/23/17 00:00 67 11/23/17 00:00 68 11/23/17 00:00 98.1 66 20 154/59 (90) 99 11/22/17 23:00 70 11/22/17 22:00 74 11/22/17 21:57 Nasal Cannula 2.00 11/22/17 21:00 74 11/22/17 20:00 76 11/22/17 19:30 75 11/22/17 19:30 98.3 66 18 181/87 (118) 94 11/22/17 19:00 72 11/22/17 18:35 98 Nasal Cannula 3.00 11/22/17 18:30 80 22 173/100 (124) 96 11/22/17 18:14 11/22/17 18:00 68 11/22/17 17:39 72 18 188/97 (127) 98 Nasal Cannula 2.00 11/22/17 13:33 78 18 174/98 (123) 98 Nasal Cannula 2.00 11/22/17 11:53 98 Nasal Cannula 2.00 11/22/17 11:39 69 24 178/93 (121) 96 Nasal Cannula 2.00 11/22/17 11:27 99.0 68 34 160/93 (115) 91 Physical Exam GENERAL: Alert and oriented SKIN: Warm and dry. left foot with dressing on HEAD: Normocephalic. EYES: No scleral icterus. No injection or drainage. NECK: Supple, trachea midline. No JVD or lymphadenopathy. CARDIOVASCULAR: Regular rate and rhythm without murmurs, gallops, or rubs. RESPIRATORY: Breath sounds diminished bilaterally. No accessory muscle use. GASTROINTESTINAL: Abdomen soft, large. MUSCULOSKELETAL: No cyanosis, or lower extremity edema BACK: Nontender without obvious deformity. No CVA tenderness. Laboratory Laboratory Tests Test 11/22/17 12:01 11/22/17 13:59 White Blood Count 9.3 Red Blood Count 3.24 Hemoglobin 9.2 Hematocrit 28.6 Mean Corpuscular Volume 88.1 Mean Corpuscular Hemoglobin 28.3 Mean Corpuscular Hemoglobin Concent 32.1 Red Cell Distribution Width 17.3 Platelet Count 300 Mean Platelet Volume 8.6 Neutrophils (%) (Auto) 80.6 Lymphocytes (%) (Auto) 10.1 Monocytes (%) (Auto) 8.1 Eosinophils (%) (Auto) 0.8 Basophils (%) (Auto) 0.4 Neutrophils # (Auto) 7.5 Lymphocytes # (Auto) 0.9 Monocytes # (Auto) 0.8 Eosinophils # (Auto) 0.1 Basophils # (Auto) 0.0 CBC Comment DIFF FINAL Differential Comment Prothrombin Time 10.4 Prothromb Time International Ratio 1.0 Activated Partial Thromboplast Time 27.3 Blood Urea Nitrogen 36 Creatinine 3.39 Random Glucose 135 Calcium Level 8.6 Magnesium Level 2.5 Sodium Level 144 Potassium Level 3.8 Chloride Level 109 Carbon Dioxide Level 25.9 Anion Gap 9 Estimat Glomerular Filtration Rate 24 Total Creatine Kinase 147 Creatine Kinase MB 1.1 Troponin I LESS THAN 0.02 B-Type Natriuretic Peptide 1215 Blood Gas Puncture Site RT RADIAL Blood Gas Patient Temperature 98.6 Blood Gas HCO3 27 Blood Gas Base Excess 2.1 Blood Gas Oxygen Saturation 82 Arterial Blood pH 7.39 Arterial Blood Partial Pressure CO2 44 Arterial Blood Partial Pressure O2 53 Arterial Blood Oxygen Content 10.7 Arterial Blood Carboxyhemoglobin 1.7 Arterial Blood Methemoglobin 0.8 Blood Gas Hemoglobin 9.2 Blood Gas Inspired Oxygen 21 Date/Time Source Procedure Growth Status 11/22/17 14:42 Blood Peripheral Aerobic Blood Culture Pending Received 11/22/17 14:42 Blood Peripheral Anaerobic Blood Culture Pending Received (Zehra Dela Cruz) Result Diagram: 11/22/17 1201 11/22/17 1201 Imaging Last Impressions Chest X-Ray 11/22/17 1141 Signed Impressions: CONCLUSION: 1. Abnormal perihilar and lower lung zone interstitial opacity and airspace co nsolidation, new since the prior study from approximately one month ago. The di stribution and appearance are suggestive of pulmonary edema. 2. Stable mild enlargement of the cardiac silhouette. Lung Scan-VQ Nuclear Medicine 11/22/17 0000 Signed Impressions: CONCLUSION: 1. Cardiomegaly. No evidence of mismatch is to suggest pulmonary embolus Chest CT 11/22/17 0000 Signed Impressions: CONCLUSION: 1. Patchy infiltrates in the medial right lung, possible multifocal bronchopne umonia (Zehra Dela Cruz) Assessment and Plan Problem List: (1) Acute kidney injury superimposed on chronic kidney disease ICD Codes: N17.9 - Acute kidney failure, unspecified; N18.9 - Chronic kidney disease, unspecified Status: Acute Plan: Acute kidney injury with admission creatinine of 3.39 and potassium of 3.8, non oliguric Acute kidney injury possible prerenal related to CHF vs infection Chronic kidney disease stage 4 from most likely hypertension or renovascular disease. His baseline creatinine is at 2.5 to 3.0 and his mold closer is Dr. Florez. Plan Continue Lasix 40 mg IV BID Continue metolazone Renal dose antibiotics Avoid Nephrotoxins including IV contrast, NSAIDS, and aminoglycosides. Will obtain Urinalysis, urine osmolarity, and urine sodium Will monitor Urinary output and BMP (2) Acute exacerbation of CHF (congestive heart failure) ICD Codes: I50.9 - Heart failure, unspecified Status: Acute Plan: Continue lasix (3) Pneumonia ICD Codes: J18.9 - Pneumonia, unspecified organism Status: Acute Plan: Continue antibiotics (4) HTN (hypertension) ICD Codes: I10 - Essential (primary) hypertension Status: Chronic Plan: Home medications continued Hydralazine increased Will monitor (Zehra Dela Cruz) Problem List: (1) Acute kidney injury superimposed on chronic kidney disease ICD Codes: N17.9 - Acute kidney failure, unspecified; N18.9 - Chronic kidney disease, unspecified Status: Acute Plan: Acute kidney injury with admission creatinine of 3.39 and potassium of 3.8, non oliguric Acute kidney injury possible prerenal related to CHF vs infection Chronic kidney disease stage 4 from most likely hypertension or renovascular disease. His baseline creatinine is at 2.5 to 3.0 and his mold closer is Dr. Florez. Plan Continue Lasix 40 mg IV BID Continue metolazone Renal dose antibiotics Avoid Nephrotoxins including IV contrast, NSAIDS, and aminoglycosides. Will obtain Urinalysis, urine osmolarity, and urine sodium Will monitor Urinary output and BMP. Patient seen and examined, agree with above. Chronic kidney disease and develop NASH. If Creatinine is not better, consider holding Lasix. (2) Acute exacerbation of CHF (congestive heart failure) ICD Codes: I50.9 - Heart failure, unspecified Status: Acute Plan: Continue lasix (3) Pneumonia ICD Codes: J18.9 - Pneumonia, unspecified organism Status: Acute Plan: Continue antibiotics (4) HTN (hypertension) ICD Codes: I10 - Essential (primary) hypertension Status: Chronic Plan: Home medications continued Hydralazine increased Will monitor (Aden Block MD) Problem Qualifiers (1) Acute exacerbation of CHF (congestive heart failure): Qualified Codes: I50.9 - Heart failure, unspecified (2) Pneumonia: Qualified Codes: J18.9 - Pneumonia, unspecified organism Zehra Dela Cruz Nov 23, 2017 10:44 Aden Block MD Nov 24, 2017 13:45
[2017-11-23] MEDS ORDERED: FUROSEMIDE 40 MG/4 ML VIAL IV PUSH ONE (10:45)
[2017-11-23 12:13] LABS: BICARBONATE 22.6 MEQ/L (21.0-32.0); CALCIUM 8.4 MG/DL (8.5-10.1); CREATININE 3.56 MG/DL (0.60-1.30)
[2017-11-23] MEDS: AZITHROMYCIN 250 MG TAB PO SCH (15:13)
--- NOTE | 2017-11-23 18:08 | PD.CONS ---
History of Present Illness Service Podiatry/foot and ankle surgery Consult Requested By Reason for Consult Left posterior calf ulceration Primary Care Physician Blayne Zavala M.D. Diagnoses: History of Present Illness Podiatry consulted for this 47-year-old obese male with history of congestive heart failure, chronic kidney disease stage III, hypertension, and gastritis for left posterior calf ulceration. Patient was seen on last admission at which time the posterior calf ulcer was debrided as well as the graft was placed. Patient was seen in office yesterday with worsening shortness of breath , dry cough, and chest pain. Patient also noted increased swelling of abdomen and bilateral lower extremities. Patient was encouraged to proceed to the emergency room and we are being consulted today to manage his left lower extremity ulceration. Review of Systems Constitutional: DENIES: Fever Respiratory: COMPLAINS OF: Cough, Shortness of breath Cardiovascular: COMPLAINS OF: Chest pain Gastrointestinal: DENIES: Abdominal pain Neurologic: DENIES: Abnormal gait Psychiatric: DENIES: Anxiety, Confusion Past Family Social History Allergies: Coded Allergies: No Known Allergies (Verified Allergy, Unknown, 10/07/17) Uncoded Allergies: nka (Allergy, Unknown, 02/26/03) Past Medical History As per HPI Past Surgical History Status post left leg ulceration debridement with graft placement Active Ordered Medications Current Medications Medications (Trade) Dose Ordered Sig/Stan Route Start Time Stop Time Status Last Admin (NS Flush) 2 ml BID IV FLUSH 11/22/17 21:00 11/22/17 23:07 (NS Flush) 2 ml UNSCH PRN IV FLUSH 11/22/17 17:00 (Zaroxolyn) 2.5 mg DAILY PO 11/22/17 17:00 11/23/17 09:27 (Heparin Inj) 5,000 units Q12HR SQ 11/22/17 21:00 11/23/17 09:28 (Albuterol Neb) 2.5 mg Q2HR NEB PRN INH 11/22/17 18:00 11/22/17 18:33 Cefepime HCl 2000 mg/Sodium Chloride 100 ml @ 200 mls/hr BID IV 11/22/17 21:00 11/23/17 09:28 (Zithromax) 500 mg Q24H PO 11/23/17 16:00 11/23/17 15:13 (Catapres) 0.1 mg Q12HR PO 11/22/17 21:00 11/23/17 09:27 (Isordil) 20 mg TID PO 11/22/17 18:00 11/23/17 12:13 (Lopressor) 75 mg Q12HR PO 11/22/17 21:00 11/23/17 09:27 (Procardia Xl) 60 mg Q12HR PO 11/22/17 21:00 11/23/17 09:27 (Protonix) 40 mg Q12HR PO 11/22/17 21:00 11/23/17 09:27 (Hytrin) 1 mg HS PO 11/22/17 21:00 11/22/17 23:06 (Lasix Inj) 40 mg BID@18 IV PUSH 11/23/17 18:00 (Apresoline) 75 mg TID PO 11/23/17 13:00 11/23/17 12:14 Physical Exam Vital Signs Vital Signs Date Time Temp Pulse Resp B/P (MAP) Pulse Ox O2 Delivery O2 Flow Rate FiO2 11/23/17 14:00 61 11/23/17 13:00 68 11/23/17 12:00 68 11/23/17 11:00 66 11/23/17 11:00 98.0 63 20 147/81 (103) 100 11/23/17 10:00 68 11/23/17 09:00 66 11/23/17 08:00 63 11/23/17 07:50 97.5 66 20 165/95 (118) 96 11/23/17 07:00 66 11/23/17 05:07 65 11/23/17 05:07 77 20 96 11/23/17 03:00 61 11/23/17 01:00 72 11/23/17 00:00 67 11/23/17 00:00 68 11/23/17 00:00 98.1 66 20 154/59 (90) 99 11/22/17 23:00 70 11/22/17 22:00 74 11/22/17 21:57 Nasal Cannula 2.00 11/22/17 21:00 74 11/22/17 20:00 76 11/22/17 19:30 75 11/22/17 19:30 98.3 66 18 181/87 (118) 94 11/22/17 19:00 72 11/22/17 18:35 98 Nasal Cannula 3.00 11/22/17 18:30 80 22 173/100 (124) 96 11/22/17 18:14 Physical Exam GENERAL: This is a well-nourished, well-developed patient, in no apparent distress. SKIN: HEAD: Atraumatic. EYES: Pupils equal round and reactive. ENT: Airway patent. NECK: Trachea midline. RESPIRATORY: Nonlabored breathing. MUSCULOSKELETAL:. Negative Homans sign bilaterally. NEUROLOGICAL: Awake and alert. Normal speech. Lower extremity physical exam: Vascular: Dorsalis pedis 1/4, posterior tibial 1/4. Capillary refill time within normal limits to digits 5 bilateral foot. Edema present bilateral lower extremity foot/ankle Neuro: Gross sensation intact to bilateral lower extremity. Pinpoint sensation intact. No hyperalgesia noted to bilateral lower extremity Dermatology: Normal temperature and turgor to bilateral lower extremity. Posterior calf ulceration noted with granular base and skin island present. Musculoskeletal: Tender to palpation to left posterior calf. Laboratory Laboratory Tests Test 11/23/17 10:54 Blood Urea Nitrogen 39 Creatinine 3.56 Random Glucose 146 Calcium Level 8.4 Sodium Level 143 Potassium Level 3.7 Chloride Level 108 Carbon Dioxide Level 22.6 Anion Gap 12 Estimat Glomerular Filtration Rate 22 Date/Time Source Procedure Growth Status 11/22/17 14:42 Blood Peripheral Aerobic Blood Culture - Preliminary NO GROWTH IN 1 DAY Resulted 11/22/17 14:42 Blood Peripheral Anaerobic Blood Culture - Preliminary NO GROWTH IN 1 DAY Resulted Result Diagram: 11/22/17 1201 11/23/17 1054 Imaging Last Impressions Chest X-Ray 11/22/17 1141 Signed Impressions: CONCLUSION: 1. Abnormal perihilar and lower lung zone interstitial opacity and airspace co nsolidation, new since the prior study from approximately one month ago. The di stribution and appearance are suggestive of pulmonary edema. 2. Stable mild enlargement of the cardiac silhouette. Lung Scan-VQ Nuclear Medicine 11/22/17 0000 Signed Impressions: CONCLUSION: 1. Cardiomegaly. No evidence of mismatch is to suggest pulmonary embolus Chest CT 11/22/17 0000 Signed Impressions: CONCLUSION: 1. Patchy infiltrates in the medial right lung, possible multifocal bronchopne umonia Assessment and Plan Assessment and Plan 47-year-old male with posterior calf ulceration to left lower extremity status post graft placement on last admission Patient examined and evaluated all questions answered Unna boot triple layer compression applied to left lower extremity with Adaptic to ulceration site Podiatry to perform dressing change in 48-72 hours Please keep dressing clean dry and intact Please continue antibiotics as drainage is improving however drainage still has some greenish tint to it suggestive of Pseudomonas Teodora Zaidi DPM Nov 23, 2017 18:08
[2017-11-23] MEDS: FUROSEMIDE 40 MG/4 ML VIAL IV PUSH SCH (18:17)
[2017-11-23] MEDS: oxyCODONE/ACETAMINOPHEN 7.5 MG/325 MG TAB PO PRN (19:06)
--- NOTE | 2017-11-23 19:31 | EKG ---
Date Performed: 11/22/2017 Time Performed: 11:41:36 PTAGE: 47 years EKG: Sinus rhythm WITH OCCASIONAL SUPRAVENTRICULAR PREMATURE COMPLEXES INCOMPLETE RIGHT BUNDLE BRANCH BLOCK NONSPECIFI C T-WAVE ABNORMALITY BORDERLINE ECG PREVIOUS TRACING : 10/07/2017 19.44 Since the previous tracing, no significant change noted DOCTOR: Faizan Ruiz Interpretating Date/Time 11/23/2017 19:30:54
[2017-11-23] MEDS: TERAZOSIN HCL 1 MG CAP PO SCH (20:34)
--- NOTE | 2017-11-23 22:18 | RADRPT ---
EXAM DATE: 11/23/2017 10:02 PM EDT AGE/SEX: 47 years / Male INDICATIONS: Increased BUN/Creatinine. CLINICAL DATA: This is the patient's initial encounter. Patient reports that signs and symptoms have been present for 3 days and indicates a pain score of 0/10. MEDICAL/SURGICAL HISTORY: Aneurysm, abdominal. Hypertension. Diabetes. Sleep apnea. History of MRSA. Congestive heart failure. Chronic kidney disease stage 3. Abdominal aortic aneurysm repair. Left leg wound surgery. COMPARISON: Renal ultrasound 03/18/2017. MEASUREMENTS: Right Kidney:__11.6 x 5.7 x 5.2 cm Left Kidney:__11.6 x 5.9 x 5.3 cm FINDINGS: Right Kidney: Kidney is normal in size and shape. Cortical thickness is normal. No hydronephrosis, mass, or suspicious appreciable stone. Left Kidney: Kidney is normal in size and shape. Cortical thickness is normal. No hydronephrosis, mass, or suspicious appreciable stone. Bladder: Within normal limits given the degree of distension. CONCLUSION: 1. No acute abnormality. Electronically signed by: Lawrence Warner MD 11/23/2017 10:17 PM EDT
--- NOTE | 2017-11-23 23:37 | HHI.PR ---
Subjective Remarks Follow up for left lower ext ulcer, pulmonary edema. Patient is currently doing well. Currently requiring O2 via NC. No fever, chills. Objective Vitals Vital Signs Date Time Temp Pulse Resp B/P (MAP) Pulse Ox O2 Delivery O2 Flow Rate FiO2 11/23/17 22:00 66 11/23/17 21:00 70 11/23/17 20:02 18 11/23/17 20:00 72 11/23/17 19:56 98.4 75 23 150/92 (111) 95 11/23/17 19:36 97 Nasal Cannula 2.00 11/23/17 19:03 90 11/23/17 18:00 76 11/23/17 17:00 70 11/23/17 16:00 72 11/23/17 15:00 66 11/23/17 15:00 97.4 65 20 145/70 (95) 97 11/23/17 14:00 61 11/23/17 13:00 68 11/23/17 12:00 68 11/23/17 11:00 66 11/23/17 11:00 98.0 63 20 147/81 (103) 100 11/23/17 10:00 68 11/23/17 09:00 66 11/23/17 08:00 63 11/23/17 07:50 97.5 66 20 165/95 (118) 96 11/23/17 07:00 66 11/23/17 05:07 65 11/23/17 05:07 77 20 96 11/23/17 03:00 61 11/23/17 01:00 72 11/23/17 00:00 67 11/23/17 00:00 68 11/23/17 00:00 98.1 66 20 154/59 (90) 99 I/O 11/23/17 11/23/17 11/23/17 11/24/17 11/24/17 11/24/17 07:00 15:00 23:00 07:00 15:00 23:00 Intake Total 480 ml 240 ml Output Total 700 ml 280 ml Balance 480 ml -700 ml -40 ml Intake Oral 480 ml 240 ml Output Urine Total 700 ml 280 ml # Voids 2 Result Diagram: 11/22/17 1201 11/23/17 1054 Imaging Last Impressions Renal Ultrasound 11/23/17 0000 Signed Impressions: CONCLUSION: 1. No acute abnormality. Chest X-Ray 11/22/17 1141 Signed Impressions: CONCLUSION: 1. Abnormal perihilar and lower lung zone interstitial opacity and airspace co nsolidation, new since the prior study from approximately one month ago. The di stribution and appearance are suggestive of pulmonary edema. 2. Stable mild enlargement of the cardiac silhouette. Lung Scan-VQ Nuclear Medicine 11/22/17 0000 Signed Impressions: CONCLUSION: 1. Cardiomegaly. No evidence of mismatch is to suggest pulmonary embolus Chest CT 11/22/17 0000 Signed Impressions: CONCLUSION: 1. Patchy infiltrates in the medial right lung, possible multifocal bronchopne umonia Objective Remarks GENERAL: Alert, Oriented x 3, NAD. SKIN: Warm and dry. HEAD: Normocephalic. EYES: No scleral icterus. No injection or drainage. NECK: Supple, trachea midline. No JVD or lymphadenopathy. CARDIOVASCULAR: Regular rate and rhythm without murmurs, gallops, or rubs. RESPIRATORY: Breath sounds equal bilaterally. No accessory muscle use. GASTROINTESTINAL: Abdomen soft, non-tender, nondistended. MUSCULOSKELETAL: No cyanosis, or edema. Left lower ext wrapped in dressing. BACK: Nontender without obvious deformity. No CVA tenderness. Procedures None. A/P Problem List: (1) Acute exacerbation of CHF (congestive heart failure) ICD Code: I50.9 - Heart failure, unspecified Status: Acute (2) Pulmonary edema ICD Code: J81.1 - Chronic pulmonary edema Status: Acute (3) Acute worsening of stage 4 chronic kidney disease ICD Code: N28.9 - Disorder of kidney and ureter, unspecified; N18.4 - Chronic kidney disease, stage 4 (severe) Status: Acute (4) Skin ulcer ICD Code: L98.499 - Non-pressure chronic ulcer of skin of other sites with unspecified severity Status: Chronic Assessment and Plan Mr. Jackson is a pleasant 47-year-old obese male with a history of congestive heart failure, chronic kidney disease stage 3, hypertension, gastritis presented to the emergency room with a 3 day history of worsening shortness of breath and dry cough. He was also recommended by his corn cooker to come to the ED due to worsening left lower ext wound. Acute exacerbation of CHF - likely diastolic Pulmonary edema - Will start patient on Lasix 40mg IV BID. - Wean off supplemental O2 - Continue Imdur, Beta gunjan. Possible pneumonia Lower extremity infected ulcer - Will continue Cefepime and Azithromycin - It might be reasonable to switch to Levaquin PO which will cover pseudomonas as well as typical/atypical for PNA Hypertension - Continue Clonidine, Hydralazine, Nifedipine Acute on CKD stage IV - Nephrology following. 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 Full code. Heparin SQ. Problem Qualifiers (1) Acute exacerbation of CHF (congestive heart failure): Qualified Codes: I50.9 - Heart failure, unspecified (2) Pulmonary edema: Qualified Codes: J81.0 - Acute pulmonary edema Can Ash DO Nov 23, 2017 23:36
[2017-11-24] VITALS (25 sets, daily range): BP systolic 117–172; BP diastolic 62–101; PULSE 60–80; RESP 15–20; TEMP 97.8–98.7; O2SAT 95–100
[2017-11-24] MEDS: oxyCODONE/ACETAMINOPHEN 7.5 MG/325 MG TAB PO PRN (01:21)
[2017-11-24 07:23] LABS: AUTOMATED NEUTROPHIL # 4.3 TH/MM3 (1.8-7.7); BASOPHIL % 0.6 % (0.0-2.0); EOSINOPHIL # 0.3 TH/MM3 (0-0.4); EOSINOPHIL % 4.4 % (0.0-4.0); HEMATOCRIT 28.4 % (39.0-51.0); HEMOGLOBIN 9.3 GM/DL (13.0-17.0); LYMPH % 18.1 % (9.0-44.0); LYMPHOCYTE # 1.2 TH/MM3 (1.0-4.8); MEAN CELL VOLUME 87.4 FL (80.0-100.0); MEAN CORPUSCULAR HEMOGLOBIN 28.6 PG (27.0-34.0); MEAN CORPUSCULAR HGB CONC 32.8 % (32.0-36.0); MEAN PLATELET VOLUME 8.7 FL (7.0-11.0); MONO % 9.5 % (0.0-8.0); MONOCYTE # 0.6 TH/MM3 (0-0.9); NEUT % 67.4 % (16.0-70.0); PLATELET COUNT 286 TH/MM3 (150-450); RED BLOOD COUNT 3.25 MIL/MM3 (4.50-5.90); RED CELL DISTRIBUTION WIDTH 17.2 % (11.6-17.2); WHITE BLOOD COUNT 6.4 TH/MM3 (4.0-11.0)
[2017-11-24 07:46] LABS: % SATURATION IRON PROFILE 12.1 % (20-50); ALBUMIN 2.6 GM/DL (3.4-5.0); BICARBONATE 29.2 MEQ/L (21.0-32.0); BLOOD UREA NITROGEN 42 MG/DL (7-18); CALCIUM 8.2 MG/DL (8.5-10.1); CHLORIDE 102 MEQ/L (98-107); GLOMERULAR FILTRATION RATE 23 ML/MIN (>89); GLUCOSE,RANDOM 96 MG/DL (74-106); IRON (FE) 27 MCG/DL (65-175); PHOSPHORUS 3.8 MG/DL (2.5-4.9); SODIUM (NA) 142 MEQ/L (136-145); TOTAL IRON BINDING CAPACITY 223 MCG/DL (250-450)
[2017-11-24 07:49] LABS: FERRITIN 60 NG/ML (26-388)
[2017-11-24] MEDS: CEFEPIME INJ 2,000 MG in SODIUM CHLORIDE 0.9% INJ 100 ML IV SCH ×2 (09:18→19:58)
[2017-11-24] MEDS: SODIUM CHLORIDE 0.9% FLUSH 10 ML FLUSH IV FLUSH SCH ×2 (09:19→19:58)
[2017-11-24] MEDS: FUROSEMIDE 40 MG/4 ML VIAL IV PUSH SCH ×2 (09:20→17:24)
[2017-11-24] MEDS: PANTOPRAZOLE SOD 40 MG DELAYED RELEASE TAB PO SCH ×2 (09:22→19:58)
[2017-11-24] MEDS: HEPARIN SODIUM - SQ 10,000 UNITS/ML VIAL SQ SCH ×2 (09:22→20:00)
[2017-11-24] MEDS: cloNIDine HCL 0.1 MG TAB PO SCH ×2 (09:22→19:59)
[2017-11-24] MEDS: NIFEdipine 60 MG SUSTAINED RELEASE TAB PO SCH ×2 (09:22→19:59)
[2017-11-24] MEDS: hydrALAZINE HCL 25 MG TAB PO SCH ×3 (09:22→17:23)
[2017-11-24] MEDS: METOPROLOL TARTRATE 25 MG TAB PO SCH ×2 (09:22→20:08)
[2017-11-24] MEDS: ISOSORBIDE DINITRATE 20 MG TAB PO SCH ×3 (09:22→17:23)
[2017-11-24] MEDS: METOLAZONE 2.5 MG TAB PO SCH (09:22)
--- NOTE | 2017-11-24 10:20 | HHI.NPPN ---
Subjective Renal Failure: Chronic, Acute, Stage III, Stage IV History of Present Illness Patient is a 47-year-old obese male with a history of congestive heart failure, chronic kidney disease stage 3, hypertension, sleep apnea, chronic lower extrermity leg ulcer and obesity. Presents to the emergency room with a 3 day history of worsening shortness of breath and dry cough. Patient reports the shortness of breath is worse with physical exertion and lying flat. He was seen by claim analyst Dr. Zaidi today who changes bandage for his chronic left lower leg wound and recommended him going to the emergency room for further evaluation. Nephrology is consulted for acute on chronic renal failure with a creatinine of 3.39. His baseline creatinine is at 2.5 to 3.0 and his telephone betting clerk is Dr. Florez. he is currently on lasix BID with elevated BNP and chest xray with possible pulmonary edema. He reports that his shortness of breath is improving. Additional Remarks Denies shortness of breath, edema improving. Creatinine at 3.40 from 3.56 today. (Zehra Dela Cruz) Review of Systems Respiratory Respiratory Remarks Denies shortness of breath (Zehra Dela Cruz) Cardiovascular Cardiac Remarks denies chest pain (Zehra Dela Cruz) Gastrointestinal GI Remarks Denies abdominal pain (Zehra Dela Cruz) Objective Data Data Vital Signs Date Time Temp Pulse Resp B/P (MAP) Pulse Ox O2 Delivery O2 Flow Rate FiO2 11/24/17 06:00 62 11/24/17 05:00 60 11/24/17 04:00 66 11/24/17 03:59 98.4 65 15 159/101 (120) 98 11/24/17 03:03 63 11/24/17 02:20 16 11/24/17 02:00 60 11/24/17 01:00 66 11/24/17 00:00 64 11/23/17 23:41 97.9 68 20 152/98 (116) 99 11/23/17 23:04 63 11/23/17 22:00 66 11/23/17 21:00 70 11/23/17 20:00 72 11/23/17 19:56 98.4 75 23 150/92 (111) 95 11/23/17 19:36 97 Nasal Cannula 2.00 11/23/17 19:03 90 11/23/17 18:00 76 11/23/17 17:00 70 11/23/17 16:00 72 11/23/17 15:00 66 11/23/17 15:00 97.4 65 20 145/70 (95) 97 11/23/17 14:00 61 11/23/17 13:00 68 11/23/17 12:00 68 11/23/17 11:00 66 11/23/17 11:00 98.0 63 20 147/81 (103) 100 (Zehra Dela Cruz) -: 11/24/17 0630 11/24/17 0630 Imaging Last Impressions Renal Ultrasound 11/23/17 0000 Signed Impressions: CONCLUSION: 1. No acute abnormality. Chest X-Ray 11/22/17 1141 Signed Impressions: CONCLUSION: 1. Abnormal perihilar and lower lung zone interstitial opacity and airspace co nsolidation, new since the prior study from approximately one month ago. The di stribution and appearance are suggestive of pulmonary edema. 2. Stable mild enlargement of the cardiac silhouette. Lung Scan-VQ Nuclear Medicine 11/22/17 0000 Signed Impressions: CONCLUSION: 1. Cardiomegaly. No evidence of mismatch is to suggest pulmonary embolus Chest CT 11/22/17 0000 Signed Impressions: CONCLUSION: 1. Patchy infiltrates in the medial right lung, possible multifocal bronchopne umonia (Zehra Dela Cruz) Physical Exam General Appearance: No Acute Distress, Comfortable (Zehra Dela Cruz) Eyes Eye Exam: Pupils Equal (Zehra Dela Cruz) Pulmonary Resp Exam: Breath Sounds Equal, No Distress, Rhonchi, Decreased Bases (Zehra Dela Cruz) Cardiology CV Exam: Regular (Zehra Dela Cruz) Gastrointestinal/Abdomen GI Exam: Soft, Non-Tender, Positive Bowel Movement GI Remarks large (Zehra Dela Cruz) Integumentary Skin Exam: Clear, Warm, Dry (Zehra Dela Cruz) Extremeties Extremities Exam: Moderate Edema (Zehra Dela Cruz) Neurologic Neuro Exam: Alert, Awake, Oriented (Zehra Dela Cruz) Psychiatric Psych Exam: Appropriate Responses (Zehra Dela Cruz) Assessment/Plan Assessment Summary: NASH/Acute Renal Failure, Anemia of CKD Problem List: (1) Acute kidney injury superimposed on chronic kidney disease ICD Codes: N17.9 - Acute kidney failure, unspecified; N18.9 - Chronic kidney disease, unspecified Status: Acute Plan: Acute kidney injury with admission creatinine of 3.39 and potassium of 3.8, non oliguric on day of consulte Acute kidney injury possible prerenal related to CHF vs infection Chronic kidney disease stage 4 from most likely hypertension or renovascular disease. His baseline creatinine is at 2.5 to 3.0 and his telephone betting clerk is Dr. Florez. Plan Continue Lasix 40 mg IV BID Creatinine slightly improved at 3.40 from 3.59 Continue metolazone Renal dose antibiotics Avoid Nephrotoxins including IV contrast, NSAIDS, and aminoglycosides. Will monitor Urinary output and BMP (2) Acute exacerbation of CHF (congestive heart failure) ICD Codes: I50.9 - Heart failure, unspecified Status: Acute Plan: Continue lasix (3) Pneumonia ICD Codes: J18.9 - Pneumonia, unspecified organism Status: Acute Plan: Continue antibiotics (4) HTN (hypertension) ICD Codes: I10 - Essential (primary) hypertension Status: Chronic Plan: Home medications continued Hydralazine increased Will monitor (5) Iron deficiency anemia ICD Codes: D50.9 - Iron deficiency anemia, unspecified Plan: IV iron replacement ordered (Zehra Dela Cruz) Problem List: (1) Acute kidney injury superimposed on chronic kidney disease ICD Codes: N17.9 - Acute kidney failure, unspecified; N18.9 - Chronic kidney disease, unspecified Status: Acute Plan: Acute kidney injury with admission creatinine of 3.39 and potassium of 3.8, non oliguric on day of consulte Acute kidney injury possible prerenal related to CHF vs infection Chronic kidney disease stage 4 from most likely hypertension or renovascular disease. His baseline creatinine is at 2.5 to 3.0 and his telephone betting clerk is Dr. Florez. Plan Continue Lasix 40 mg IV BID Creatinine slightly improved at 3.40 from 3.59 Continue metolazone Renal dose antibiotics Avoid Nephrotoxins including IV contrast, NSAIDS, and aminoglycosides. Will monitor Urinary output and BMP. Patient seen and examined, agree with above. Creatinine is slightly better, continue diuretics. (2) Acute exacerbation of CHF (congestive heart failure) ICD Codes: I50.9 - Heart failure, unspecified Status: Acute Plan: Continue lasix (3) Pneumonia ICD Codes: J18.9 - Pneumonia, unspecified organism Status: Acute Plan: Continue antibiotics (4) HTN (hypertension) ICD Codes: I10 - Essential (primary) hypertension Status: Chronic Plan: Home medications continued Hydralazine increased Will monitor (5) Iron deficiency anemia ICD Codes: D50.9 - Iron deficiency anemia, unspecified Plan: IV iron replacement ordered (Aden Block MD) Problem Qualifiers (1) Acute exacerbation of CHF (congestive heart failure): Qualified Codes: I50.9 - Heart failure, unspecified (2) Pneumonia: Qualified Codes: J18.9 - Pneumonia, unspecified organism Zehra Dela Cruz Nov 24, 2017 10:20 Aden Block MD Nov 24, 2017 13:56
[2017-11-24] MEDS: IRON SUCROSE INJ 200 MG in SODIUM CHLORIDE 0.9% INJ 100 ML IV SCH (12:08)
[2017-11-24] MEDS: AZITHROMYCIN 250 MG TAB PO SCH (15:39)
[2017-11-24] MEDS: TERAZOSIN HCL 1 MG CAP PO SCH (19:59)
--- NOTE | 2017-11-24 23:24 | HHI.PR ---
Subjective Remarks Follow up for left lower ext ulcer, pneumonia, pulmonary edema, NASH. Patient is currently doing well. Resting in bed, no acute concerns. No CP, SOB, fever, chills. Objective Vitals Vital Signs Date Time Temp Pulse Resp B/P (MAP) Pulse Ox O2 Delivery O2 Flow Rate FiO2 11/24/17 20:00 76 11/24/17 19:00 73 11/24/17 18:08 70 11/24/17 17:14 76 11/24/17 16:01 63 11/24/17 15:16 64 11/24/17 15:16 98.4 80 18 144/78 (100) 97 11/24/17 14:02 66 11/24/17 13:10 67 11/24/17 12:02 61 11/24/17 11:39 98.0 71 18 143/89 (107) 98 11/24/17 11:39 65 11/24/17 10:36 71 11/24/17 09:00 67 11/24/17 08:30 97.8 73 20 172/98 (122) 100 11/24/17 08:30 60 11/24/17 06:00 62 11/24/17 05:00 60 11/24/17 04:00 66 11/24/17 03:59 98.4 65 15 159/101 (120) 98 11/24/17 03:03 63 11/24/17 02:20 16 11/24/17 02:00 60 11/24/17 01:00 66 11/24/17 00:00 64 11/23/17 23:41 97.9 68 20 152/98 (116) 99 I/O 11/24/17 11/24/17 11/24/17 11/25/17 11/25/17 11/25/17 07:00 15:00 23:00 07:00 15:00 23:00 Intake Total 810 ml 720 ml Output Total 1650 ml 2700 ml Balance -840 ml -1980 ml Intake Oral 810 ml 720 ml Output Urine Total 1650 ml 2700 ml # Bowel Movements 0 Result Diagram: 11/24/17 0630 11/24/17 0630 Imaging Last Impressions Renal Ultrasound 11/23/17 0000 Signed Impressions: CONCLUSION: 1. No acute abnormality. Chest X-Ray 6/5/18 1141 Signed Impressions: CONCLUSION: 1. Abnormal perihilar and lower lung zone interstitial opacity and airspace co nsolidation, new since the prior study from approximately one month ago. The di stribution and appearance are suggestive of pulmonary edema. 2. Stable mild enlargement of the cardiac silhouette. Lung Scan-VQ Nuclear Medicine 11/22/17 Signed Impressions: CONCLUSION: 1. Cardiomegaly. No evidence of mismatch is to suggest pulmonary embolus Chest CT 11/22/17 Signed Impressions: CONCLUSION: 1. Patchy infiltrates in the medial right lung, possible multifocal bronchopne umonia Objective Remarks GENERAL: Alert, Oriented x 3, NAD. SKIN: Warm and dry. HEAD: Normocephalic. EYES: No scleral icterus. No injection or drainage. NECK: Supple, trachea midline. No JVD or lymphadenopathy. CARDIOVASCULAR: Regular rate and rhythm without murmurs, gallops, or rubs. RESPIRATORY: Breath sounds equal bilaterally. No accessory muscle use. GASTROINTESTINAL: Abdomen soft, non-tender, nondistended. MUSCULOSKELETAL: No cyanosis, or edema. Left lower ext wrapped in dressing. BACK: Nontender without obvious deformity. No CVA tenderness. Procedures None. A/P Problem List: (1) Acute exacerbation of CHF (congestive heart failure) ICD Code: I50.9 - Heart failure, unspecified Status: Acute (2) Pulmonary edema ICD Code: J81.1 - Chronic pulmonary edema Status: Acute (3) Acute worsening of stage 4 chronic kidney disease ICD Code: N28.9 - Disorder of kidney and ureter, unspecified; N18.4 - Chronic kidney disease, stage 4 (severe) Status: Acute (4) Skin ulcer ICD Code: L98.499 - Non-pressure chronic ulcer of skin of other sites with unspecified severity Status: Chronic Assessment and Plan Mr. Jackson is a pleasant 47-year-old obese male with a history of congestive heart failure, chronic kidney disease stage 3, hypertension, gastritis presented to the emergency room with a 3 day history of worsening shortness of breath and dry cough. He was also recommended by his exercise planner to come to the ED due to worsening left lower ext wound. Acute exacerbation of CHF - likely diastolic Pulmonary edema - Lasix 40mg IV BID. Will consider Torsemide upon discharge. - Wean off supplemental O2 - Continue Imdur, Beta gunjan. Possible pneumonia Lower extremity infected ulcer - Will continue Cefepime and Azithromycin - It might be reasonable to switch to Levaquin PO which will cover pseudomonas as well as typical/atypical for PNA Hypertension - Continue Clonidine, Hydralazine, Nifedipine Acute on CKD stage IV - Nephrology following. Creatinine is trending down. 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 Full code. Heparin SQ. Discharge plan: Pending podiatry clearance. Problem Qualifiers (1) Acute exacerbation of CHF (congestive heart failure): Qualified Codes: I50.9 - Heart failure, unspecified (2) Pulmonary edema: Qualified Codes: J81.0 - Acute pulmonary edema Can Ash DO Nov 24, 2017 23:24
[2017-11-25] VITALS (30 sets, daily range): BP systolic 104–188; BP diastolic 60–94; PULSE 56–84; RESP 16; TEMP 97.8–98.9; O2SAT 92–100
[2017-11-25] MEDS ORDERED: cloNIDine HCL 0.1 MG TAB PO ONE (04:00)
[2017-11-25] MEDS: cloNIDine HCL 0.1 MG TAB PO SCH ×2 (10:19→22:41)
[2017-11-25] MEDS: METOPROLOL TARTRATE 25 MG TAB PO SCH ×2 (10:22→22:42)
[2017-11-25] MEDS: oxyCODONE/ACETAMINOPHEN 7.5 MG/325 MG TAB PO PRN (10:23)
[2017-11-25] MEDS: METOLAZONE 2.5 MG TAB PO SCH (10:24)
[2017-11-25] MEDS: ISOSORBIDE DINITRATE 20 MG TAB PO SCH ×3 (10:25→17:46)
[2017-11-25] MEDS: hydrALAZINE HCL 25 MG TAB PO SCH ×3 (10:25→17:46)
[2017-11-25] MEDS: PANTOPRAZOLE SOD 40 MG DELAYED RELEASE TAB PO SCH ×2 (10:26→22:42)
[2017-11-25] MEDS: NIFEdipine 60 MG SUSTAINED RELEASE TAB PO SCH ×2 (10:26→22:41)
[2017-11-25] MEDS: CEFEPIME INJ 2,000 MG in SODIUM CHLORIDE 0.9% INJ 100 ML IV SCH ×2 (11:08→22:41)
[2017-11-25] MEDS: IRON SUCROSE INJ 200 MG in SODIUM CHLORIDE 0.9% INJ 100 ML IV SCH (11:08)
[2017-11-25] MEDS: SODIUM CHLORIDE 0.9% FLUSH 10 ML FLUSH IV FLUSH SCH ×2 (11:08→22:41)
[2017-11-25] MEDS: FUROSEMIDE 40 MG/4 ML VIAL IV PUSH SCH ×2 (11:09→17:47)
[2017-11-25] MEDS: HEPARIN SODIUM - SQ 10,000 UNITS/ML VIAL SQ SCH ×2 (11:09→22:41)
--- NOTE | 2017-11-25 12:18 | HHI.NPPN ---
Subjective Renal Failure: Chronic, Acute, Stage III, Stage IV History of Present Illness Patient is a 47-year-old obese male with a history of congestive heart failure, chronic kidney disease stage 3, hypertension, sleep apnea, chronic lower extrermity leg ulcer and obesity. Presents to the emergency room with a 3 day history of worsening shortness of breath and dry cough. Patient reports the shortness of breath is worse with physical exertion and lying flat. He was seen by paper novelty maker Dr. Zaidi today who changes bandage for his chronic left lower leg wound and recommended him going to the emergency room for further evaluation. Nephrology is consulted for acute on chronic renal failure with a creatinine of 3.39. His baseline creatinine is at 2.5 to 3.0 and his fabricator artificial breast is Dr. Florez. he is currently on lasix BID with elevated BNP and chest xray with possible pulmonary edema. He reports that his shortness of breath is improving. Additional Remarks Denies shortness of breath edema continues to improve. OOB in Chair. (Zehra Dela Cruz) Review of Systems Respiratory Respiratory Remarks Denies shortness of breath (Zehra Dela Cruz) Cardiovascular Cardiac Remarks denies chest pain (Zehra Dela Cruz) Gastrointestinal GI Remarks Denies abdominal pain (Zehra Dela Cruz) Objective Data Data Vital Signs Date Time Temp Pulse Resp B/P (MAP) Pulse Ox O2 Delivery O2 Flow Rate FiO2 11/25/17 09:52 98 21 11/25/17 08:12 98.5 61 16 156/94 (114) 100 11/25/17 08:12 Room Air 11/25/17 06:00 70 11/25/17 05:26 152/94 (113) 11/25/17 05:00 70 11/25/17 04:07 181/93 (122) 11/25/17 04:00 80 11/25/17 03:15 98.9 67 16 188/86 (120) 92 11/25/17 03:00 70 11/25/17 03:00 70 11/25/17 02:00 72 11/25/17 01:00 66 11/25/17 00:00 68 11/25/17 00:00 73 11/24/17 23:02 98.7 78 17 127/82 (97) 97 11/24/17 23:00 97 Nasal Cannula 1.00 11/24/17 23:00 68 11/24/17 22:00 68 11/24/17 21:00 72 11/24/17 21:00 98.5 67 18 117/62 (80) 95 11/24/17 20:00 76 11/24/17 20:00 70 11/24/17 19:00 73 11/24/17 18:08 70 11/24/17 17:14 76 11/24/17 16:01 63 11/24/17 15:16 64 11/24/17 15:16 98.4 80 18 144/78 (100) 97 11/24/17 14:02 66 11/24/17 13:10 67 (Zehra Dela Cruz) -: 11/24/17 0630 11/24/17 0630 Imaging Last Impressions Renal Ultrasound 11/23/17 0000 Signed Impressions: CONCLUSION: 1. No acute abnormality. Chest X-Ray 11/22/17 1141 Signed Impressions: CONCLUSION: 1. Abnormal perihilar and lower lung zone interstitial opacity and airspace co nsolidation, new since the prior study from approximately one month ago. The di stribution and appearance are suggestive of pulmonary edema. 2. Stable mild enlargement of the cardiac silhouette. Lung Scan-V Nuclear Medicine 11/22/17 0000 Signed Impressions: CONCLUSION: 1. Cardiomegaly. No evidence of mismatch is to suggest pulmonary embolus Chest CT 11/22/17 0000 Signed Impressions: CONCLUSION: 1. Patchy infiltrates in the medial right lung, possible multifocal bronchopne umonia (Zehra Dela Cruz) Physical Exam General Appearance: No Acute Distress, Comfortable (Zehra Dela Cruz) Eyes Eye Exam: Pupils Equal (Zehra Dela Cruz) Pulmonary Resp Exam: Breath Sounds Equal, No Distress, Rhonchi, Decreased Bases (Zehra Dela Cruz) Cardiology CV Exam: Regular (Zhera Dela Cruz) Gastrointestinal/Abdomen GI Exam: Soft, Non-Tender, Positive Bowel Movement GI Remarks large (Zehra Dela Cruz) Integumentary Skin Exam: Clear, Warm, Dry (Zehra Dela Cruz) Extremeties Extremities Exam: Moderate Edema (Zehra Dela Cruz) Neurologic Neuro Exam: Alert, Awake, Oriented (Zehra Dela Cruz) Psychiatric Psych Exam: Appropriate Responses (Zehra Dela Cruz) Assessment/Plan Assessment Summary: NASH/Acute Renal Failure, Anemia of CKD Problem List: (1) Acute kidney injury superimposed on chronic kidney disease ICD Codes: N17.9 - Acute kidney failure, unspecified; N18.9 - Chronic kidney disease, unspecified Status: Acute Plan: Acute kidney injury with admission creatinine of 3.39 and potassium of 3.8, non oliguric on day of consulte Acute kidney injury possible prerenal related to CHF vs infection Chronic kidney disease stage 4 from most likely hypertension or renovascular disease. His baseline creatinine is at 2.5 to 3.0 and his fabricator artificial breast is Dr. Florez. Plan Continue Lasix 40 mg IV BID Continue metolazone Renal dose antibiotics Avoid Nephrotoxins including IV contrast, NSAIDS, and aminoglycosides. Will monitor Urinary output and BMP. Labs in AM (2) Acute exacerbation of CHF (congestive heart failure) ICD Codes: I50.9 - Heart failure, unspecified Status: Acute Plan: Continue lasix (3) Pneumonia ICD Codes: J18.9 - Pneumonia, unspecified organism Status: Acute Plan: Continue antibiotics (4) HTN (hypertension) ICD Codes: I10 - Essential (primary) hypertension Status: Chronic Plan: Home medications continued Hydralazine increased yesterday Will monitor (5) Iron deficiency anemia ICD Codes: D50.9 - Iron deficiency anemia, unspecified Plan: IV iron replacement ordered (Zehra Dela Cruz) Problem List: (1) Acute kidney injury superimposed on chronic kidney disease ICD Codes: N17.9 - Acute kidney failure, unspecified; N18.9 - Chronic kidney disease, unspecified Status: Acute Plan: Acute kidney injury with admission creatinine of 3.39 and potassium of 3.8, non oliguric on day of consulte Acute kidney injury possible prerenal related to CHF vs infection Chronic kidney disease stage 4 from most likely hypertension or renovascular disease. His baseline creatinine is at 2.5 to 3.0 and his fabricator artificial breast is Dr. Florez. Plan Continue Lasix 40 mg IV BID Continue metolazone Renal dose antibiotics Avoid Nephrotoxins including IV contrast, NSAIDS, and aminoglycosides. Will monitor Urinary output and BMP. Labs in AM. Patient seen and examined, agree with above. Has Chronic kidney disease, to continue diuretics. If discharge, will need close follow up. (2) Acute exacerbation of CHF (congestive heart failure) ICD Codes: I50.9 - Heart failure, unspecified Status: Acute Plan: Continue lasix (3) Pneumonia ICD Codes: J18.9 - Pneumonia, unspecified organism Status: Acute Plan: Continue antibiotics (4) HTN (hypertension) ICD Codes: I10 - Essential (primary) hypertension Status: Chronic Plan: Home medications continued Hydralazine increased yesterday Will monitor (5) Iron deficiency anemia ICD Codes: D50.9 - Iron deficiency anemia, unspecified Plan: IV iron replacement ordered (Aden Block MD) Problem Qualifiers (1) Acute exacerbation of CHF (congestive heart failure): Qualified Codes: I50.9 - Heart failure, unspecified (2) Pneumonia: Qualified Codes: J18.9 - Pneumonia, unspecified organism Zehra Dela Cruz Nov 25, 2017 12:18 Aden Block MD Nov 29, 2017 00:24
--- NOTE | 2017-11-25 14:07 | HHI.PR ---
Subjective Remarks Follow up for left lower ext ulcer, pneumonia, pulmonary edema, NASH. Patient is currently doing well. He is sitting in his chair. On room air. No chest pain, shortness of breath, fever or chills. Wants to go home. Objective Vitals Vital Signs Date Time Temp Pulse Resp B/P (MAP) Pulse Ox O2 Delivery O2 Flow Rate FiO2 11/25/17 12:22 98.5 60 16 122/83 (96) 97 11/25/17 09:52 98 21 11/25/17 08:12 98.5 61 16 156/94 (114) 100 11/25/17 08:12 Room Air 11/25/17 06:00 70 11/25/17 05:26 152/94 (113) 11/25/17 05:00 70 11/25/17 04:07 181/93 (122) 11/25/17 04:00 80 11/25/17 03:15 98.9 67 16 188/86 (120) 92 11/25/17 03:00 70 11/25/17 03:00 70 11/25/17 02:00 72 11/25/17 01:00 66 11/25/17 00:00 68 11/25/17 00:00 73 11/24/17 23:02 98.7 78 17 127/82 (97) 97 11/24/17 23:00 97 Nasal Cannula 1.00 11/24/17 23:00 68 11/24/17 22:00 68 11/24/17 21:00 72 11/24/17 21:00 98.5 67 18 117/62 (80) 95 11/24/17 20:00 76 11/24/17 20:00 70 11/24/17 19:00 73 11/24/17 18:08 70 11/24/17 17:14 76 11/24/17 16:01 63 11/24/17 15:16 64 11/24/17 15:16 98.4 80 18 144/78 (100) 97 I/O 11/24/17 11/24/17 11/24/17 11/25/17 11/25/17 11/25/17 06:59 14:59 22:59 06:59 14:59 22:59 Intake Total 810 ml 820 ml 960 ml Output Total 1650 ml 2700 ml 2850 ml Balance -840 ml -1880 ml -1890 ml Intake Oral 810 ml 720 ml 960 ml IV Total 100 ml Output Urine Total 1650 ml 2700 ml 2850 ml # Bowel Movements 0 Result Diagram: 11/24/17 0630 11/24/17 0630 Imaging Last Impressions Renal Ultrasound 11/23/17 0000 Signed Impressions: CONCLUSION: 1. No acute abnormality. Chest X-Ray 11/22/17 1141 Signed Impressions: CONCLUSION: 1. Abnormal perihilar and lower lung zone interstitial opacity and airspace co nsolidation, new since the prior study from approximately one month ago. The di stribution and appearance are suggestive of pulmonary edema. 2. Stable mild enlargement of the cardiac silhouette. Lung Scan-VQ Nuclear Medicine 11/22/17 0000 Signed Impressions: CONCLUSION: 1. Cardiomegaly. No evidence of mismatch is to suggest pulmonary embolus Chest CT 11/22/17 0000 Signed Impressions: CONCLUSION: 1. Patchy infiltrates in the medial right lung, possible multifocal bronchopne umonia Objective Remarks GENERAL: Alert, Oriented x 3, NAD. SKIN: Warm and dry. HEAD: Normocephalic. EYES: No scleral icterus. No injection or drainage. NECK: Supple, trachea midline. No JVD or lymphadenopathy. CARDIOVASCULAR: Regular rate and rhythm without murmurs, gallops, or rubs. RESPIRATORY: Breath sounds equal bilaterally. No accessory muscle use. GASTROINTESTINAL: Abdomen soft, non-tender, nondistended. MUSCULOSKELETAL: No cyanosis, or edema. Left lower ext wrapped in dressing. BACK: Nontender without obvious deformity. No CVA tenderness. Procedures None. A/P Problem List: (1) Acute exacerbation of CHF (congestive heart failure) ICD Code: I50.9 - Heart failure, unspecified Status: Acute (2) Pulmonary edema ICD Code: J81.1 - Chronic pulmonary edema Status: Acute (3) Acute worsening of stage 4 chronic kidney disease ICD Code: N28.9 - Disorder of kidney and ureter, unspecified; N18.4 - Chronic kidney disease, stage 4 (severe) Status: Acute (4) Skin ulcer ICD Code: L98.499 - Non-pressure chronic ulcer of skin of other sites with unspecified severity Status: Chronic Assessment and Plan Mr. Jackson is a pleasant 47-year-old obese male with a history of congestive heart failure, chronic kidney disease stage 3, hypertension, gastritis presented to the emergency room with a 3 day history of worsening shortness of breath and dry cough. He was also recommended by his check cashier to come to the ED due to worsening left lower ext wound. Acute exacerbation of CHF - likely diastolic Pulmonary edema - Lasix 40mg IV BID. Will consider Torsemide upon discharge. - Wean off supplemental O2 - Continue Imdur, Beta gunjan. - Currently on room air. Possible pneumonia Lower extremity infected ulcer - Will continue Cefepime and Azithromycin - It might be reasonable to switch to Levaquin PO which will cover pseudomonas as well as typical/atypical for PNA - IF podiatry clears, we will switch abx to Levaquin. Hypertension - Continue Clonidine, Hydralazine, Nifedipine Acute on CKD stage IV - Nephrology following. Creatinine is trending down. 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 - If patient stays today, we will obtain labs in the AM. Full code. Heparin SQ. Discharge: Anticipate discharge today or over the weekend. Problem Qualifiers (1) Acute exacerbation of CHF (congestive heart failure): Qualified Codes: I50.9 - Heart failure, unspecified (2) Pulmonary edema: Qualified Codes: J81.0 - Acute pulmonary edema Can Ash DO Nov 25, 2017 2:07 pm
[2017-11-25] MEDS: AZITHROMYCIN 250 MG TAB PO SCH (16:28)
[2017-11-25] MEDS: TERAZOSIN HCL 1 MG CAP PO SCH (22:42)
[2017-11-26] VITALS (28 sets, daily range): BP systolic 103–163; BP diastolic 58–89; PULSE 57–78; RESP 15–20; TEMP 97.9–98.9; O2SAT 97–100
[2017-11-26 03:16] LABS: SODIUM,RANDOM URINE 108 MEQ/L
[2017-11-26 03:19] LABS: BILIRUBIN, URINE NEG (NEG); BLOOD, URINE NEG (NEG); GLUCOSE,URINE NEG (NEG); KETONE, URINE NEG (NEG); MUCUS URINE FEW /lpf (OCC); NITRITE,URINE NEG (NEG); URINE COLOR LIGHT-YELLOW (YELLW/STRAW); URINE LEUKOCYTE ESTERASE NEG (NEG)
[2017-11-26 03:49] LABS: OSMOLALITY,URINE 335 MOSM/KG (300-1300)
[2017-11-26 05:45] LABS: AUTOMATED NEUTROPHIL # 4.2 TH/MM3 (1.8-7.7); BASOPHIL % 0.4 % (0.0-2.0); EOSINOPHIL # 0.3 TH/MM3 (0-0.4); EOSINOPHIL % 4.5 % (0.0-4.0); HEMATOCRIT 30.5 % (39.0-51.0); HEMOGLOBIN 10.1 GM/DL (13.0-17.0); LYMPH % 13.4 % (9.0-44.0); LYMPHOCYTE # 0.8 TH/MM3 (1.0-4.8); MEAN CELL VOLUME 85.6 FL (80.0-100.0); MEAN CORPUSCULAR HEMOGLOBIN 28.4 PG (27.0-34.0); MEAN CORPUSCULAR HGB CONC 33.2 % (32.0-36.0); MEAN PLATELET VOLUME 8.8 FL (7.0-11.0); MONO % 11.4 % (0.0-8.0); MONOCYTE # 0.7 TH/MM3 (0-0.9); NEUT % 70.3 % (16.0-70.0); PLATELET COUNT 307 TH/MM3 (150-450); RED BLOOD COUNT 3.56 MIL/MM3 (4.50-5.90); RED CELL DISTRIBUTION WIDTH 16.9 % (11.6-17.2)
[2017-11-26 05:58] LABS: ALBUMIN 2.6 GM/DL (3.4-5.0); ALKALINE PHOSPHATASE 83 U/L (45-117); ALT (GPT) 13 U/L (12-78); AST (GOT) 8 U/L (15-37); BICARBONATE 32.5 MEQ/L (21.0-32.0); BLOOD UREA NITROGEN 49 MG/DL (7-18); CALCIUM 8.5 MG/DL (8.5-10.1); CHLORIDE 98 MEQ/L (98-107); CREATININE 3.22 MG/DL (0.60-1.30); GLOMERULAR FILTRATION RATE 25 ML/MIN (>89); GLUCOSE,RANDOM 107 MG/DL (74-106); PHOSPHORUS 3.2 MG/DL (2.5-4.9); SODIUM (NA) 139 MEQ/L (136-145); TOTAL BILIRUBIN ADULT 0.2 MG/DL (0.2-1.0); TOTAL PROTEIN 6.7 GM/DL (6.4-8.2)
[2017-11-26] MEDS: POTASSIUM CHLORIDE 10 MEQ CONTROLLED RELEASE TAB PO SCH ×3 (07:46→09:28)
[2017-11-26] MEDS: SODIUM CHLORIDE 0.9% FLUSH 10 ML FLUSH IV FLUSH SCH ×2 (09:24→21:14)
[2017-11-26] MEDS: IRON SUCROSE INJ 200 MG in SODIUM CHLORIDE 0.9% INJ 100 ML IV SCH (09:26)
[2017-11-26] MEDS: METOPROLOL TARTRATE 25 MG TAB PO SCH ×2 (09:27→21:14)
[2017-11-26] MEDS: PANTOPRAZOLE SOD 40 MG DELAYED RELEASE TAB PO SCH ×2 (09:27→21:12)
[2017-11-26] MEDS: hydrALAZINE HCL 25 MG TAB PO SCH ×3 (09:28→18:17)
[2017-11-26] MEDS: cloNIDine HCL 0.1 MG TAB PO SCH ×2 (09:28→21:12)
[2017-11-26] MEDS: NIFEdipine 60 MG SUSTAINED RELEASE TAB PO SCH ×2 (09:28→21:13)
[2017-11-26] MEDS: METOLAZONE 2.5 MG TAB PO SCH (09:29)
[2017-11-26] MEDS: HEPARIN SODIUM - SQ 10,000 UNITS/ML VIAL SQ SCH ×2 (09:29→21:12)
[2017-11-26] MEDS: FUROSEMIDE 40 MG/4 ML VIAL IV PUSH SCH ×2 (09:31→18:17)
[2017-11-26] MEDS: CEFEPIME INJ 2,000 MG in SODIUM CHLORIDE 0.9% INJ 100 ML IV SCH ×2 (09:32→21:14)
[2017-11-26] MEDS: ISOSORBIDE DINITRATE 20 MG TAB PO SCH ×3 (09:39→18:17)
--- NOTE | 2017-11-26 13:27 | HHI.NPPN ---
Subjective Renal Failure: Chronic, Acute, Stage III, Stage IV History of Present Illness Patient is a 47-year-old obese male with a history of congestive heart failure, chronic kidney disease stage 3, hypertension, sleep apnea, chronic lower extrermity leg ulcer and obesity. Presents to the emergency room with a 3 day history of worsening shortness of breath and dry cough. Patient reports the shortness of breath is worse with physical exertion and lying flat. He was seen by program administrator Dr. Zaidi today who changes bandage for his chronic left lower leg wound and recommended him going to the emergency room for further evaluation. Nephrology is consulted for acute on chronic renal failure with a creatinine of 3.39. His baseline creatinine is at 2.5 to 3.0 and his leaf tier is Dr. Florez. he is currently on lasix BID with elevated BNP and chest xray with possible pulmonary edema. He reports that his shortness of breath is improving. Additional Remarks Denies shortness of breath edema continues to improve. Review of Systems Respiratory Respiratory Remarks Denies shortness of breath Cardiovascular Cardiac Remarks denies chest pain Gastrointestinal GI Remarks Denies abdominal pain Objective Data Data Vital Signs Date Time Temp Pulse Resp B/P (MAP) Pulse Ox O2 Delivery O2 Flow Rate FiO2 11/26/17 11:00 98.7 74 15 115/73 (87) 97 11/26/17 10:00 68 11/26/17 09:00 68 11/26/17 08:00 74 11/26/17 07:34 98.5 60 20 163/89 (113) 97 11/26/17 07:34 97 Room Air 11/26/17 07:00 76 11/26/17 06:23 57 11/26/17 05:00 64 11/26/17 04:48 97.9 66 16 137/84 (101) 100 11/26/17 04:00 66 11/26/17 03:00 68 11/26/17 03:00 67 11/26/17 02:00 72 11/26/17 01:00 74 11/26/17 00:00 75 11/26/17 00:00 72 11/26/17 00:00 98.2 71 18 137/85 (102) 98 11/25/17 23:00 70 11/25/17 22:00 70 11/25/17 21:00 72 11/25/17 20:00 84 11/25/17 19:45 Room Air 21 11/25/17 19:45 97.8 63 16 151/92 (111) 96 11/25/17 19:00 67 11/25/17 17:00 62 11/25/17 16:22 98.1 67 16 126/60 (82) 92 11/25/17 15:00 69 11/25/17 14:00 56 -: 11/26/17 0443 11/26/17 0443 Physical Exam General Appearance: No Acute Distress, Comfortable Eyes Eye Exam: Pupils Equal Pulmonary Resp Exam: Breath Sounds Equal, No Distress, Rhonchi, Decreased Bases Cardiology CV Exam: Regular Gastrointestinal/Abdomen GI Exam: Soft, Non-Tender, Positive Bowel Movement Integumentary Skin Exam: Clear, Warm, Dry Extremeties Extremities Exam: Moderate Edema Neurologic Neuro Exam: Alert, Awake, Oriented Psychiatric Psych Exam: Appropriate Responses Assessment/Plan Assessment Summary: NASH/Acute Renal Failure, Anemia of CKD Problem List: (1) Acute kidney injury superimposed on chronic kidney disease ICD Codes: N17.9 - Acute kidney failure, unspecified; N18.9 - Chronic kidney disease, unspecified Status: Acute Plan: Acute kidney injury with admission creatinine of 3.39 and potassium of 3.8, non oliguric on day of consult Acute kidney injury possible prerenal related to CHF vs infection Chronic kidney disease stage 4 from most likely hypertension or renovascular disease. His baseline creatinine is at 2.5 to 3.0 and his leaf tier is Dr. Florez. Plan Creatinine improved to 3.2 Continue Lasix 40 mg IV BID Continue metolazone Renal dose antibiotics Avoid Nephrotoxins including IV contrast, NSAIDS, and aminoglycosides. Potassium was low this was replaced I will give him 16 mEq of potassium twice a day Follow renal panel (2) Acute exacerbation of CHF (congestive heart failure) ICD Codes: I50.9 - Heart failure, unspecified Status: Acute Plan: Continue lasix (3) Pneumonia ICD Codes: J18.9 - Pneumonia, unspecified organism Status: Acute Plan: Continue antibiotics (4) HTN (hypertension) ICD Codes: I10 - Essential (primary) hypertension Status: Chronic Plan: Home medications continued Hydralazine increased yesterday Will monitor (5) Iron deficiency anemia ICD Codes: D50.9 - Iron deficiency anemia, unspecified Plan: IV iron replacement ordered Problem Qualifiers (1) Acute exacerbation of CHF (congestive heart failure): Qualified Codes: I50.9 - Heart failure, unspecified (2) Pneumonia: Qualified Codes: J18.9 - Pneumonia, unspecified organism Osbaldo Stevens MD Nov 26, 2017 13:27
[2017-11-26] MEDS ORDERED: OXYC1TAB35 PO (15:05)
[2017-11-26] MEDS: AZITHROMYCIN 250 MG TAB PO SCH (15:52)
--- NOTE | 2017-11-26 18:02 | HHI.PR ---
Subjective Remarks Follow up for left lower ext ulcer, pneumonia, pulmonary edema, NASH. Patient is currently doing well. No fever, chills. Currently on room air. Wants to go home. Objective Vitals Vital Signs Date Time Temp Pulse Resp B/P (MAP) Pulse Ox O2 Delivery O2 Flow Rate FiO2 11/26/17 15:30 98.4 63 16 137/78 (97) 99 11/26/17 14:05 65 11/26/17 13:00 62 11/26/17 12:00 64 11/26/17 11:00 73 11/26/17 11:00 98.7 74 15 115/73 (87) 97 11/26/17 10:00 68 11/26/17 09:00 68 11/26/17 08:00 74 11/26/17 07:34 98.5 60 20 163/89 (113) 97 11/26/17 07:34 97 Room Air 11/26/17 07:00 76 11/26/17 06:23 57 11/26/17 05:00 64 11/26/17 04:48 97.9 66 16 137/84 (101) 100 11/26/17 04:00 66 11/26/17 03:00 68 11/26/17 03:00 67 11/26/17 02:00 72 11/26/17 01:00 74 11/26/17 00:00 75 11/26/17 00:00 72 11/26/17 00:00 98.2 71 18 137/85 (102) 98 11/25/17 23:00 70 11/25/17 22:00 70 11/25/17 21:00 72 11/25/17 20:00 84 11/25/17 19:45 Room Air 21 11/25/17 19:45 97.8 63 16 151/92 (111) 96 11/25/17 19:00 67 I/O 11/25/17 11/25/17 11/25/17 11/26/17 11/26/17 11/26/17 07:00 15:00 23:00 07:00 15:00 23:00 Intake Total 960 ml 480 ml Output Total 2850 ml 1350 ml 1875 ml Balance -1890 ml -1350 ml -1395 ml Intake Oral 960 ml 480 ml Output Urine Total 2850 ml 1350 ml 1875 ml # Voids 1 # Bowel Movements 1 Result Diagram: 11/26/1744211/26/17442 Objective Remarks GENERAL: Alert, Oriented x 3, NAD. SKIN: Warm and dry. HEAD: Normocephalic. EYES: No scleral icterus. No injection or drainage. NECK: Supple, trachea midline. No JVD or lymphadenopathy. CARDIOVASCULAR: Regular rate and rhythm without murmurs, gallops, or rubs. RESPIRATORY: Breath sounds equal bilaterally. No accessory muscle use. GASTROINTESTINAL: Abdomen soft, non-tender, nondistended. MUSCULOSKELETAL: No cyanosis, or edema. Left lower ext wrapped in dressing. BACK: Nontender without obvious deformity. No CVA tenderness. Procedures None. A/P Problem List: (1) Acute exacerbation of CHF (congestive heart failure) ICD Code: I50.9 - Heart failure, unspecified Status: Acute (2) Pulmonary edema ICD Code: J81.1 - Chronic pulmonary edema Status: Acute (3) Acute worsening of stage 4 chronic kidney disease ICD Code: N28.9 - Disorder of kidney and ureter, unspecified; N18.4 - Chronic kidney disease, stage 4 (severe) Status: Acute (4) Skin ulcer ICD Code: L98.499 - Non-pressure chronic ulcer of skin of other sites with unspecified severity Status: Chronic Assessment and Plan Mr. Jackson is a pleasant 47-year-old obese male with a history of congestive heart failure, chronic kidney disease stage 3, hypertension, gastritis presented to the emergency room with a 3 day history of worsening shortness of breath and dry cough. He was also recommended by his library associate to come to the ED due to worsening left lower ext wound. Acute exacerbation of CHF - likely diastolic Pulmonary edema - Lasix 40mg IV BID. Will consider Torsemide upon discharge. - Wean off supplemental O2 - Continue Imdur, Beta gunjan. - Currently on room air. Possible pneumonia Lower extremity infected ulcer - Will continue Cefepime and Azithromycin - It might be reasonable to switch to Levaquin PO which will cover pseudomonas as well as typical/atypical for PNA - IF podiatry clears, we will switch abx to Levaquin. - Podiatry cleared patient this evening. If Patient can arrange a ride, he can be discharged. Hypertension - Continue Clonidine, Hydralazine, Nifedipine Acute on CKD stage IV - Nephrology following. Creatinine is trending down. 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 - If patient stays today, we will obtain labs in the AM. Full code. Heparin SQ. Problem Qualifiers (1) Acute exacerbation of CHF (congestive heart failure): Qualified Codes: I50.9 - Heart failure, unspecified (2) Pulmonary edema: Qualified Codes: J81.0 - Acute pulmonary edema Can Ash DO Nov 26, 2017 18:02
--- NOTE | 2017-11-26 19:39 | HHI.PR ---
Subjective Remarks Patient seen bedside. Patient resting comfortably. Leg is in dependent position and not elevated at all. Objective Vital Signs Date Time Temp Pulse Resp B/P (MAP) Pulse Ox O2 Delivery O2 Flow Rate FiO2 11/26/17 18:00 74 11/26/17 17:00 74 11/26/17 16:30 61 11/26/17 15:30 98.4 63 16 137/78 (97) 99 11/26/17 15:00 73 11/26/17 14:05 65 11/26/17 13:00 62 11/26/17 12:00 64 11/26/17 11:00 73 11/26/17 11:00 98.7 74 15 115/73 (87) 97 11/26/17 10:00 68 11/26/17 09:00 68 11/26/17 08:00 74 11/26/17 07:34 98.5 60 20 163/89 (113) 97 11/26/17 07:34 97 Room Air 11/26/17 07:00 76 11/26/17 06:23 57 11/26/17 05:00 64 11/26/17 04:48 97.9 66 16 137/84 (101) 100 11/26/17 04:00 66 11/26/17 03:00 68 11/26/17 03:00 67 11/26/17 02:00 72 11/26/17 01:00 74 11/26/17 00:00 75 11/26/17 00:00 72 11/26/17 00:00 98.2 71 18 137/85 (102) 98 11/25/17 23:00 70 11/25/17 22:00 70 11/25/17 21:00 72 11/25/17 20:00 84 11/25/17 19:45 Room Air 21 11/25/17 19:45 97.8 63 16 151/92 (111) 96 I/O 11/25/17 11/25/17 11/25/17 11/26/17 11/26/17 11/26/17 06:59 14:59 22:59 06:59 14:59 22:59 Intake Total 960 ml 480 ml 1500 ml Output Total 2850 ml 1350 ml 1875 ml 1225 ml Balance -1890 ml -1350 ml -1395 ml 275 ml Intake Oral 960 ml 480 ml 1500 ml Output Urine Total 2850 ml 1350 ml 1875 ml 1225 ml # Voids 1 # Bowel Movements 1 1 Result Diagram: 11/26/17 0443 11/26/17 0443 Imaging Last Impressions Renal Ultrasound 11/23/17 0000 Signed Impressions: CONCLUSION: 1. No acute abnormality. Chest X-Ray 11/22/17 1141 Signed Impressions: CONCLUSION: 1. Abnormal perihilar and lower lung zone interstitial opacity and airspace co nsolidation, new since the prior study from approximately one month ago. The di stribution and appearance are suggestive of pulmonary edema. 2. Stable mild enlargement of the cardiac silhouette. Lung Scan-VQ Nuclear Medicine 11/22/17 0000 Signed Impressions: CONCLUSION: 1. Cardiomegaly. No evidence of mismatch is to suggest pulmonary embolus Chest CT 11/22/17 0000 Signed Impressions: CONCLUSION: 1. Patchy infiltrates in the medial right lung, possible multifocal bronchopne umonia Other Results Microbiology Date/Time Source Procedure Growth Status 11/22/17 14:42 Blood Peripheral Aerobic Blood Culture - Preliminary NO GROWTH IN 4 DAYS Resulted 11/22/17 14:42 Blood Peripheral Anaerobic Blood Culture - Preliminary NO GROWTH IN 4 DAYS Resulted Objective Remarks Lower extremity physical exam: Vascular: Dorsalis pedis 1/4, posterior tibial 1/4. Capillary refill time within normal limits to digits 5 bilateral foot. Edema present bilateral lower extremity foot/ankle Neuro: Gross sensation intact to bilateral lower extremity. Pinpoint sensation intact. No hyperalgesia noted to bilateral lower extremity Dermatology: Normal temperature and turgor to bilateral lower extremity. Posterior calf ulceration noted with granular base and skin island present, improvement noted. Musculoskeletal: Tender to palpation to left posterior calf. Medications and IVs Current Medications Medications (Trade) Dose Ordered Sig/Stan Route Start Time Stop Time Status Last Admin (NS Flush) 2 ml BID IV FLUSH 11/22/17 21:00 11/26/17 09:24 (NS Flush) 2 ml UNSCH PRN IV FLUSH 11/22/17 17:00 (Zaroxolyn) 2.5 mg DAILY PO 11/22/17 17:00 11/26/17 09:29 (Heparin Inj) 5,000 units Q12HR SQ 11/22/17 21:00 11/26/17 09:29 (Albuterol Neb) 2.5 mg Q2HR NEB PRN INH 11/22/17 18:00 11/22/17 18:33 Cefepime HCl 2000 mg/Sodium Chloride 100 ml @ 200 mls/hr BID IV 11/22/17 21:00 11/26/17 09:32 (Zithromax) 500 mg Q24H PO 11/23/17 16:00 11/26/17 15:52 (Catapres) 0.1 mg Q12HR PO 11/22/17 21:00 11/26/17 09:28 (Isordil) 20 mg TID PO 11/22/17 18:00 11/26/17 18:17 (Lopressor) 75 mg Q12HR PO 11/22/17 21:00 11/26/17 09:27 (Procardia Xl) 60 mg Q12HR PO 11/22/17 21:00 11/26/17 09:28 (Protonix) 40 mg Q12HR PO 11/22/17 21:00 11/26/17 09:27 (Hytrin) 1 mg HS PO 11/22/17 21:00 11/25/17 22:42 (Lasix Inj) 40 mg BID@09,18 IV PUSH 11/23/17 18:00 11/26/17 18:17 (Apresoline) 75 mg TID PO 11/23/17 13:00 11/26/17 18:17 (Percocet 7.5-325 Mg) 1 tab Q6H PRN PO 11/23/17 18:45 11/25/17 10:23 (KCl) 16 meq Q12HR PO 11/26/17 21:00 Assessment and Plan Assessment and Plan 47-year-old male with posterior calf ulceration to left lower extremity status post graft placement on last admission Patient examined and evaluated all questions answered Unna boot triple layer compression applied to left lower extremity with Adaptic to ulceration site Patient to follow-up in office once discharged Patient okay to be discharged for podiatry, please discharged on pseudomonal coverage Agree with Levaquin p.o. upon discharge Please keep dressing clean dry and intact Teodora Zaiid DPM Nov 26, 2017 19:39
[2017-11-26] MEDS: oxyCODONE/ACETAMINOPHEN 7.5 MG/325 MG TAB PO PRN (19:54)
[2017-11-26] MEDS ORDERED: POTASSIUM CHLORIDE 8 MEQ CONTROLLED RELEASE TAB PO SCH (21:00)
[2017-11-26] MEDS: TERAZOSIN HCL 1 MG CAP PO SCH (21:13)
[2017-11-26] MEDS ORDERED: LEVA750T9 PO ×2 (22:06→22:20)
[2017-11-26] MEDS ORDERED: TORS10TA2 PO (22:14)
[2017-11-26] MEDS ORDERED: KLOR8TAB PO (22:20)
[2017-11-27] VITALS: PULSE 67; PULSE 72; RESP 16; O2SAT 98
== END 2017-11-27 | disposition home or self-care (01) | DRG 291 ==
LOC: NEPC 11:20 → NEDA 16:12 → HCIS 18:00
PROVIDERS: ADMIT Hospitalist; ATTEND Hospitalist
DX: I13.0 Hypertensive heart and chronic kidney disease with heart failure and stage 1 through stage 4 chronic kidney disease, or unspecified chronic kidney disease (principal); I50.31 Acute diastolic (congestive) heart failure; J18.0 Bronchopneumonia, unspecified organism; N17.9 Acute kidney failure, unspecified; N18.4 Chronic kidney disease, stage 4 (severe); L97.929 Non-pressure chronic ulcer of unspecified part of left lower leg with unspecified severity; G47.30 Sleep apnea, unspecified; D50.9 Iron deficiency anemia, unspecified; K29.70 Gastritis, unspecified, without bleeding; Z79.891 Long term (current) use of opiate analgesic; Z79.899 Other long term (current) drug therapy; Y95 Nosocomial condition
CPT/HCPCS: 36600; 71046; 71250; 76775; 78582; 80048; 80053; 80069; 81001; 82550; 82552; 82728; 82805; 83540; 83550; 83735; 83880; 83935; 84100; 84300; 84484; 84540; 85025; 85610; 85730; 87040; 93005; 94640; 94664; 96365; 96375; A9540; A9567; J0456; J0692; J0696; J1644; J1756; J1940; J2930; J7050; J7613

== ENCOUNTER 2018-02-03 18:07 | Inpatient (IN) ==
--- NOTE | 2018-02-03 19:04 | XR ---
EXAM DATE: 02/03/2018 7:01 PM EDT AGE/SEX: 47 years / Male INDICATIONS: Chest pain. CLINICAL DATA: This is the patient's initial encounter. Patient reports that signs and symptoms have been present for 1 day and indicates a pain score of 8/10. MEDICAL/SURGICAL HISTORY: . COPD, hypertension. None. [place] [facility] [place] . FINDINGS: A single AP view of the chest demonstrates the lungs to be symmetrically aerated without evidence of mass, infiltrate or effusion. The cardiomediastinal contours are unremarkable. Osseous structures a re intact. The retrocardiac region is not well visualized secondary to overlying soft tissue density . CONCLUSION: No acute cardiopulmonary disease. Electronically signed by: Zach Nolan MD 02/03/2018 7:03 PM EDT
[2018-02-03 19:28] LABS: Activated Partial Thrombo Time 24.5 sec (24.3-30.1)
[2018-02-03] MEDS ORDERED: hydrALAZINE 50 MG Tablet PO ONE ×2 (19:28→23:20)
[2018-02-03] MEDS ORDERED: Metoprolol Tartrate 25 MG Tablet PO ONE (19:28)
[2018-02-03 19:35] LABS: Anion Gap 8 meq/L (5-15); Blood Urea Nitrogen 35 mg/dL (7-18); Calcium 8.3 mg/dL (8.5-10.1); Carbon Dioxide 24.6 meq/L (21.0-32.0); Chloride 108 meq/L (98-107); Creatine Kinase 118 U/L (39-308); Glomerular Filtration Rate 23 mL/min (>89); Glucose,Random 102 mg/dL (74-106); Potassium 3.7 meq/L (3.5-5.1); Sodium 141 meq/L (136-145)
--- NOTE | 2018-02-03 19:36 | ED ---
HPI General Chief Complaint: Chest Pain Stated Complaint: chest pain Time Seen by Provider: 02/03/18 18:43 History of Present Illness HPI narrative: This is a 47-year-old male with a history of hypertension, who presented here today with complaints of chest pain. Patient states he has had it intermittently for the last day and a half. Reports it as a pressure-like substernal. There is no radiation. He rates it as a 5-6 on the 10 scale. He denies any nausea or diaphoresis. He does state that occasionally he gets short of breath. The patient reports that he has not been taking his blood pressure medication for the last couple days. He is on multiple medications. There are no other reported complaints at the time of my evaluation. The patient has a chronic left lower extremity wound that he has stressed every week by wound care. He states he did not have this dressing change this week. Complete Quality Measures for STEMI Alert Patients Related Data Home Medications Medication Instructions Recorded Confirmed Additional Bp Meds 02/03/18 clonidine HCl 0.1 mg PO BID 02/03/18 02/03/18 furosemide 20 mg PO BID 02/03/18 02/03/18 Allergies Allergy/AdvReac Type Severity Reaction Status Date / Time nka Allergy Unknown Uncoded 02/26/03 01:23 No Known Allergies Allergy Unknown Uncoded 10/07/17 22:56 Review of Systems ROS: all other systems reviewed are negative Constitutional Denies chills, Denies fatigue, Denies fever(s) and Denies headache(s) Eyes Reports system reviewed and no additional complaints, except as docu ENT Reports system reviewed and no additional complaints, except as docu Cardiovascular Reports chest pain, Denies syncope and Reports dyspnea (Mild with exertion) Respiratory Denies pain on inspiration, Reports dyspnea (With exertion) and Reports dyspnea on exertion Gastrointestinal Denies nausea and Denies vomiting Genitourinary Reports system reviewed and no additional complaints, except as docu Musculoskeletal Reports system reviewed and no additional complaints, except as docu and Reports other (She has a chronic left medial lower leg ulcer.) Neurologic Denies dizziness, Denies headache(s), Denies numbness and Denies weakness PMF Medical History Medical History FHx: brain aneurysm (Acute) Hypertension (Acute) PVD (peripheral vascular disease) (Acute) Social History Social History Substance History: No History of Abuse Second Hand Smoke Exposure: No Smoking Status: Never smoker How Often Do You Have a Drink Containing Alcohol: Monthly or less Recent Travel in [facility] within the Last 8 Weeks: No Recent Out of Country Travel within the Last 8 Weeks: No Immunization History Tetanus Immunization: Unsure Hx Influenza Vaccine This Season: No Exam Narrative Exam Narrative: GENERAL: Well-developed well-nourished male in no acute respiratory distress. SKIN: Focused skin assessment warm/dry. HEAD: Atraumatic. Normocephalic. EYES: Pupils equal and round. No scleral icterus. No injection or drainage. ENT: No nasal bleeding or discharge. Mucous membranes pink and moist. NECK: Trachea midline. Supple. No JVD. CARDIOVASCULAR: Regular rate and rhythm. No murmur appreciated. RESPIRATORY: No accessory muscle use. Clear to auscultation. Breath sounds equal bilaterally. GASTROINTESTINAL: Abdomen soft, non-tender, nondistended. Hepatic and splenic margins not palpable. MUSCULOSKELETAL: Left lower extremity with chronic wound dressing in place. There is a foul odor coming from the wound. NEUROLOGICAL: Awake and alert. No obvious cranial nerve deficits. Motor grossly within normal limits. Normal speech. PSYCHIATRIC: Appropriate mood and affect; insight and judgment normal. Course Initial Documented Vital Signs Temperature 99.1 F 02/03/18 18:19 Pulse Rate 71 02/03/18 18:19 Respiratory Rate 18 02/03/18 18:19 Blood Pressure 251/127 H 02/03/18 18:19 Pulse Oximetry 98 02/03/18 18:19 Last Documented Vital Signs Temperature 99.1 F 02/03/18 18:19 Pulse Rate 55 L 02/03/18 22:31 Respiratory Rate 18 02/03/18 22:31 Blood Pressure 183/108 H 02/03/18 22:31 Pulse Oximetry 96 02/03/18 22:31 Sign Out Sign Out Data: Patient Sign Out occurred on 02/03/18 at 19:47. Patient's care was discussed, and care was transferred from Ciro Hess MD to Meliza Reyes MD. Sign Out Comment: 47-year-old male with history of hypertension, presents today with complaints of intermittent chest pain 2 days. Patient reports it as pressure-like substernal area. Labs are pending at this time. Patient also has a chronic wound to his left lower extremity. He has been given clonidine, hydralazine, metoprolol. He will be signed out to the physician at change of shift. Disposition will be per Dr. Reyes once labs are back. Last updated by Ciro Hess MD at 02/03/18 19:38 Post-Handoff Eval: Patient resting comfortably in stretcher. Ports chest pain started this morning , intermittent, left-sided, nonradiating, approximately 5-6 out of 10, reports pain now. Also reports noncompliance with BP medication. Pressures 209/123. Chest x-ray was negative, coags within normal limits, BUN and creatinine elevated but at baseline, troponin negative, CK within normal limits. The outgoing physician gave patient dose of his blood pressure medication as well as aspirin 325 mg p.o. 2124: BP 219/116. Patient without chest pain, will place 1 in NTG to chest wall. Also given his procardia XL 60mg po. 2220: Repeat BP 188/99, will admit to hospitalist. XR tib/fib: CONCLUSION: Soft tissue prominence with no underlying bony abnormality. Patient has wound culture and gram stain pending. Medical Decision Making MDM Narrative Medical Screen Exam Complete: Yes Emergency Medical Condition: Yes Differential Diagnosis Differential Diagnosis: ACS, HTN urgency, HTN emergency Lab Data Result diagrams: 02/03/18 18:45 02/03/18 18:45 Lab Results 02/03/18 02/03/18 02/03/18 Range/Units 18:45 18:45 18:45 WBC 4.3 (4.0-11.0) th/mm3 RBC 4.24 L (4.50-5.90) mil/mm3 Hgb 11.7 L (13.0-17.0) gm/dL Hct 35.7 L (39.0-51.0) % MCV 84.4 (80.0-100.0) fL MCH 27.7 (27.0-34.0) pg MCHC 32.8 (32.0-36.0) % RDW 17.5 H (11.6-17.2) % Plt Count 212 (150-450) th/mm3 MPV 8.5 (7.0-11.0) fL Neut % (Auto) 49.7 (16.0-70.0) % Lymph % (Auto) 33.2 (9.0-44.0) % Falls % (Auto) 11.8 H (0.0-8.0) % Eos % (Auto) 4.2 H (0.0-4.0) % Baso % (Auto) 1.1 (0.0-2.0) % Neut # (Auto) 2.1 (1.8-7.7) th/mm3 Lymph # (Auto) 1.4 (1.0-4.8) th/mm3 Falls # (Auto) 0.5 (0.0-0.9) th/mm3 Eos # (Auto) 0.2 (0.0-0.4) th/mm3 Baso # (Auto) 0.0 (0.0-0.2) th/mm3 WBC Differential . Differential Comment Auto diff final PT 10.0 (9.8-11.6) sec INR 1.0 Ratio APTT 24.5 (24.3-30.1) sec Sodium 141 (136-145) meq/L Potassium 3.7 (3.5-5.1) meq/L Chloride 108 H (98-107) meq/L Carbon Dioxide 24.6 (21.0-32.0) meq/L Anion Gap 8 (5-15) meq/L BUN 35 H (7-18) mg/dL Creatinine 3.42 H (0.60-1.30) mg/dL Estimated GFR 23 L (>89) mL/min Random Glucose 102 (74-106) mg/dL Calcium 8.3 L (8.5-10.1) mg/dL Total Creatine Kinase 118 (39-308) U/L CK-MB (CK-2) 1.0 (0.5-3.6) ng/mL Troponin I Less than 0.02 L (0.02-0.05) ng/mL Imaging Data Radiologist's impression: Chest X-Ray 02/03/18 18:43 CONCLUSION: No acute cardiopulmonary disease. Tibia/Fibula X-Ray 02/03/18 21:00 CONCLUSION: Soft tissue prominence with no underlying bony abnormality. Discharge Plan Discharge Disposition Patient Disposition: 30 Still Patient Discharge Condition Condition: Stable Discharge Details Diagnosis: Chest pain, Hypertension Physicians Team ED Provider: Meliza Reyes Primary Care Provider: Blayne Zavala Attending Provider: Mara Muhammad Discharge Interventions Interventions: Vital Signs Last Done: 02/03/18 18:36 Status ED Status: Admitted Patient
[2018-02-03 19:51] LABS: Baso % (Auto) 1.1 % (0.0-2.0); Eos # (Auto) 0.2 th/mm3 (0.0-0.4); Eos % (Auto) 4.2 % (0.0-4.0); Hematocrit 35.7 % (39.0-51.0); Hemoglobin 11.7 gm/dL (13.0-17.0); Lymph # (Auto) 1.4 th/mm3 (1.0-4.8); Lymph % (Auto) 33.2 % (9.0-44.0); Mean Corpuscular HGB Conc 32.8 % (32.0-36.0); Mean Corpuscular Hemoglobin 27.7 pg (27.0-34.0); Mean Corpuscular Volume 84.4 fL (80.0-100.0); Mean Platelet Volume 8.5 fL (7.0-11.0); Mono # (Auto) 0.5 th/mm3 (0.0-0.9); Mono % (Auto) 11.8 % (0.0-8.0); Neut # (Auto) 2.1 th/mm3 (1.8-7.7); Neut % (Auto) 49.7 % (16.0-70.0); Platelet Count 212 th/mm3 (150-450); Red Blood Count 4.24 mil/mm3 (4.50-5.90); Red Cell Distribution Width 17.5 % (11.6-17.2); White Blood Count 4.3 th/mm3 (4.0-11.0)
--- NOTE | 2018-02-03 21:49 | XR ---
EXAM DATE: 02/03/2018 9:43 PM EDT AGE/SEX: 47 years / Male INDICATIONS: Patient complains of left lower leg pain due to infected wound. CLINICAL DATA: This is the patient's initial encounter. Patient reports that signs and symptoms have been present for 4 - 6 months and indicates a pain score of 8/10. MEDICAL/SURGICAL HISTORY: . COPD, hypertension. None. COMPARISON: [facility], TIBIA/FIBULA LEFT (AP/LAT), 03/17/2017. . FINDINGS: Bony structures are intact and in normal alignment. Osseous density is normal. There is diffuse soft tissue prominence. No radiopaque foreign bodies seen. CONCLUSION: Soft tissue prominence with no underlying bony abnormality. Electronically signed by: Zach Nolan MD 02/03/2018 9:48 PM EDT
[2018-02-03] MEDS ORDERED: Bisacodyl 10 MG Supp RECTAL PRN (22:56)
[2018-02-03] MEDS ORDERED: Acetaminophen 325 MG Tablet PO PRN (22:56)
[2018-02-03] MEDS ORDERED: Temazepam 15 MG Capsule PO PRN (22:56)
[2018-02-03] MEDS ORDERED: Sod Chloride 0.9% Inj 1,000 ML IV.CONT SCH (23:00)
--- NOTE | 2018-02-03 23:00 | P.HPIM ---
History of Present Illness Primary Care Physician: Blayne Zavala MD History of Present Illness: This is a 47-year-old male with a PMH of HTN, CKD and Non-compliance who presented to the ER w/ complaints of chest pain x1 day. States pain is substernal, moderate, 7/10, non-radiating, associated w/ SOB. On arrival, BP 232/139, HR 63, reports non-compliance w/ meds x1 wk, states has no PCP for follow-up, obtains refills in the ER. CBC essentially unremarkable. INR 1.0. Creatinine 3.42, previously 3.22 on 11/26/2017. Reports no outpatient Nephrology follow up. Trop negative. Also noted to have foul-smelling wound to LLE which patient states is chronic, afebrile, no leukocytosis. CXR w/ no acute findings. Tib/Fib X-ray was soft tissue prominence, no underlying bony abnormality. S/p multiple doses of antihypertensives in the ER including Nifedipine 60mg PO, Metoprolol 75mg PO, Hydralazine 50mg PO, Clonidine 0.1mg PO and NTG w/ minimal improvement in BP, however now chest pain free. - Diagnosis (1) HTN (hypertension) (2) Chest pain (3) CKD (chronic kidney disease) (4) Leg wound, left Inpatient Certification: I certify that the inpatient services were ordered in accordance with Medicare regulations governing the order. This includes certification that hospital inpatient services are reasonable and necessary and in the case of services not specified as inpatient-only under 42 CFR 419.22(n), that they are appropriately provided as inpatient services in accordance to with the 2-midnight benchmark under 43 CFR 412.3(e) Estimated Total Length of Stay (Days): 2 Plans for Post Hospital Care: Not yet determined Review of Systems PAST FAMILY HISTORY: Reviewed. No h/o DM or CAD All other systems reviewed negative except as stated in HPI PMFSH - History History Provided By: Patient - Medical History Medical History: Medical History (Last Updated 02/03/18 @ 18:38 by Inessa Ibarra) FHx: brain aneurysm Hypertension PVD (peripheral vascular disease) - Tobacco History Second Hand Smoke Exposure: No Tobacco Use In Past 30 Days: No Smoking Status: Never smoker - Alcohol History How Often Do You Have a Drink Containing Alcohol: Monthly or less - Substance Use History Substance History: No History of Abuse - Travel History Recent Travel in the [place] Within the Last 8 Weeks: No Recent Travel Out of the Country Within the Last 8 Weeks: No - Immunization History Tetanus Immunization: Unsure Hx Influenza Vaccine This Season: No Medications and Allergies Active Medications: Active Medications Acetaminophen (Tylenol) 650 mg PO Q4H PRN PRN Reason: Temp > 100.4 Al Hydroxide/Mg Hydroxide (Milk Of Magnesia Liq) 30 ml PO Q12H PRN PRN Reason: Mild Constipation Aspirin (Ecotrin) 325 mg PO DAILY RASHAAD Bisacodyl (Dulcolax Supp) 10 mg RECTAL DAILY PRN PRN Reason: SEVERE CONSITIPATION Clonidine HCl (Catapres) 0.2 mg PO Q12HR RASHAAD Heparin Sodium (Porcine) (Heparin Inj) 5,000 units SQ Q12H RASHAAD Sodium Chloride (Ns Inj) 1,000 mls @ 100 mls/hr IV.CONT .Q10H RASHAAD Lactulose (Lactulose Liq) 30 ml PO DAILY PRN PRN Reason: SEVERE CONSITIPATION Morphine Sulfate (Morphine Inj) 2 mg IV.PUSH Q4H PRN PRN Reason: PAIN 6-10 Nifedipine (Procardia Xl) 60 mg PO DAILY [facility] Nitroglycerin (Nitro-Bid 2% Oint) 0.5 inch TOPICAL Q6HR PRN PRN Reason: CHEST PAIN Ondansetron HCl (Zofran Inj) 4 mg IV.PUSH Q6H PRN PRN Reason: NAUSEA OR VOMITING Pravastatin Sodium (Pravachol) 40 mg PO DAILY [facility] Senna/Docusate Sodium (Alyssa-Colace) 1 tab PO BID [facility] Sennosides (Senokot) 17.2 mg PO Q12H PRN PRN Reason: Moderate Constipation Sodium Chloride (Ns Flush) 2 ml IV.FLUSH UNSCH PRN PRN Reason: FLUSH AFTER USING IV ACCESS Temazepam (Restoril) 15 mg PO HS PRN PRN Reason: INSOMNIA Allergies Allergy/AdvReac Type Severity Reaction Status Date / Time nka Allergy Unknown Uncoded 02/26/03 01:23 No Known Allergies Allergy Unknown Uncoded 10/07/17 22:56 Home Medications Medication Instructions Recorded Confirmed Type Additional Bp Meds 02/03/18 History clonidine HCl 0.1 mg PO BID 02/03/18 02/03/18 History furosemide 20 mg PO BID 02/03/18 02/03/18 History Exam Vital signs: Vital Signs 02/03/18 18:19 02/03/18 18:36 02/03/18 20:37 Temperature 99.1 F Pulse Rate 71 65 63 Respiratory Rate 18 18 28 H Blood Pressure 251/127 H 209/123 H 232/139 H Pulse Oximetry 98 96 96 02/03/18 21:16 02/03/18 21:50 02/03/18 22:31 Temperature Pulse Rate 60 58 L 55 L Respiratory Rate 20 20 18 Blood Pressure 219/116 H 206/109 H 183/108 H Pulse Oximetry 96 97 96 Intake & Output 02/03/18 02/03/18 02/04/18 06:59 18:59 06:59 Weight 142.882 kg Narrative: PE: GENERAL: Middle-aged black male in no acute distress. HEENT: PERRLA, EOMI. No scleral icterus or conjunctival pallor. No lid lag or facial droop. CARDIOVASCULAR: Regular rate and rhythm. No obvious murmurs to auscultation. No chest tenderness to palpation. RESPIRATORY: No obvious rhonchi or wheezing. Clear to auscultation. Breath sounds equal bilaterally. GASTROINTESTINAL: Abdomen soft, non-tender, nondistended. BS normal. MUSCULOSKELETAL: Extremities without clubbing, cyanosis, or edema. No obvious deformities. LLE wound w/ foul-smelling drainage. NEUROLOGICAL: Awake, alert and oriented x4. No focal neurologic deficits. Moving both upper and lower extremities spontaneously. Results - Labs CBC & Chem 7: 02/03/18 18:45 02/03/18 18:45 Labs: Short CBC 02/03/18 Range/Units 18:45 WBC 4.3 (4.0-11.0) th/mm3 Hgb 11.7 L (13.0-17.0) gm/dL Hct 35.7 L (39.0-51.0) % Plt Count 212 (150-450) th/mm3 BMP 02/03/18 18:45 Sodium 141 Potassium 3.7 Chloride 108 H Carbon Dioxide 24.6 BUN 35 H Creatinine 3.42 H Calcium 8.3 L Cardiac Enzymes 02/03/18 Range/Units 18:45 Total Creatine Kinase 118 (39-308) U/L CK-MB (CK-2) 1.0 (0.5-3.6) ng/mL Troponin I Less than 0.02 L (0.02-0.05) ng/mL - Imaging Impressions Chest X-Ray 02/03/18 18:43 CONCLUSION: No acute cardiopulmonary disease. Tibia/Fibula X-Ray 02/03/18 21:00 CONCLUSION: Soft tissue prominence with no underlying bony abnormality. Caprini VTE Risk Assessment Caprini VTE Risk Assessment: No/Low Risk (score <= 1) Caprini Risk Assessment Model: Point Value = 1 Point Value = 2 Point Value = 3 Point Value = 5 Age 41-60 Minor surgery BMI > 25 kg/m2 Swollen legs Varicose veins or History of unexplained or recurrent spontaneous Oral contraceptives or hormone replacement Sepsis (< 1 month) Serious lung disease, including pneumonia (< 1 month) Abnormal pulmonary function Acute myocardial infarction Congestive heart failure (< 1 month) History of inflammatory bowel disease Medical patient at bed rest Age 61-74 Arthroscopic surgery Major open surgery (> 45 min) Laparoscopic surgery (> 45 min) Malignancy Confined to bed (> 72 hours) Immobilizing plaster cast Central venous access Age >= 75 History of VTE Family history of VTE Factor V Leiden Prothrombin [id number] Lupus anticoagulant Anticardiolipin antibodies Elevated serum homocysteine Heparin-induced thrombocytopenia Other congenital or acquired thrombophilia Stroke (< 1 month) Elective arthroplasty Hip, pelvis, or leg fracture Acute spinal cord injury (< 1 month) Prophylaxis Regimen: Total Risk Factor Score Risk Level Prophylaxis Regimen 0-1 Low Early ambulation 2 Moderate Order ONE of the following: *Sequential Compression Device (SCD) *Heparin 5000 units SQ BID 3-4 Higher Order ONE of the following medications: *Heparin 5000 units SQ TID *Enoxaparin/Lovenox 40 mg SQ daily (WT < 150 kg, CrCl > 30 mL/min) *Enoxaparin/Lovenox 30 mg SQ daily (WT < 150 kg, CrCl > 10-29 mL/min) *Enoxaparin/Lovenox 30 mg SQ BID (WT < 150 kg, CrCl > 30 mL/min) AND/OR *Sequential Compression Device (SCD) 5 or more Highest Order ONE of the following medications: *Heparin 5000 units SQ TID (Preferred with Epidurals) *Enoxaparin/Lovenox 40 mg SQ daily (WT < 150 kg, CrCl > 30 mL/min) *Enoxaparin/Lovenox 30 mg SQ daily (WT < 150 kg, CrCl > 10-29 mL/min) *Enoxaparin/Lovenox 30 mg SQ BID (WT < 150 kg, CrCl > 30 mL/min) AND *Sequential Compression Device (SCD) Assessment and Plan - Assessment (1) HTN (hypertension) Code(s): I10 - Essential (primary) hypertension Status: Acute (2) Chest pain Code(s): R07.9 - Chest pain, unspecified Status: Acute (3) CKD (chronic kidney disease) Code(s): N18.9 - Chronic kidney disease, unspecified Status: Acute (4) Leg wound, left Code(s): S81.802A - Unspecified open wound, left lower leg, initial encounter Status: Acute - Plan A/P: 1. HTN: Uncontrolled, secondary to Non-Compliance, BP 232/139, HR 63, s/p Nifedipine 60mg PO, Metoprolol 75mg PO, Hydralazine 50mg PO, Clonidine 0.1mg PO and NTG w/ minimal improvement. Lopressor 5mg IV x1 and Hydralazine 50mg PO x1 now, monitor BP closely, antihypertensives as needed for BP >180. 2. Chest Pain: Initial trop negative, EKG w/ no acute ischemia, check serial cardiac enzymes, Lipid Profile, Hgb A1c, start ASA, Statin, B-gunjan if UDS negative. Cardio eval as needed. 3. CKD: Acute on Chronic Renal Failure, likely due to chronically uncontrolled HTN from non-compliance, no outpatient follow-up, Consult Nephrology for further evaluation/recommendations. Check U/a, UDS. Repeat labs in am. 4. LLE Wound: +foul-smelling wound to left lower extremity, X-ray w/ soft tissue prominence, no underlying bony abnormality, images reviewed. Follow up wound cultures, Wound Consult for management, hold antibiotics at this time as afebrile/no leukocytosis. 5. DVT Prophylaxis: Heparin sq 6. Social work for DC planning as needed. 7. Case discussed at length with the ER physician, lab/record/imaging reviewed by me. (2) Chest pain Qualifiers: Chest pain type: unspecified Qualified Code(s): R07.9 - Chest pain, unspecified
[2018-02-03] MEDS ORDERED: Metoprolol Inj 5 MG/5 ML Vial IV.PUSH ONE (23:20)
[2018-02-04 06:40] LABS: Baso # (Auto) 0.1 th/mm3 (0.0-0.2); Eos # (Auto) 0.3 th/mm3 (0.0-0.4); Eos % (Auto) 3.9 % (0.0-4.0); Hematocrit 40.4 % (39.0-51.0); Hemoglobin 13.6 gm/dL (13.0-17.0); Lymph % (Auto) 24.5 % (9.0-44.0); Mean Corpuscular HGB Conc 33.7 % (32.0-36.0); Mean Corpuscular Hemoglobin 28.4 pg (27.0-34.0); Mean Corpuscular Volume 84.3 fL (80.0-100.0); Mean Platelet Volume 8.6 fL (7.0-11.0); Mono # (Auto) 0.6 th/mm3 (0.0-0.9); Neut % (Auto) 62.6 % (16.0-70.0); Platelet Count 210 th/mm3 (150-450); Red Blood Count 4.79 mil/mm3 (4.50-5.90); Red Cell Distribution Width 17.6 % (11.6-17.2)
[2018-02-04 06:51] LABS: Albumin 3.4 g/dL (3.4-5.0); Anion Gap 11 meq/L (5-15); Aspartate Aminotransferase 15 U/L (15-37); Blood Urea Nitrogen 31 mg/dL (7-18); Calcium 8.4 mg/dL (8.5-10.1); Carbon Dioxide 23.3 meq/L (21.0-32.0); Chloride 108 meq/L (98-107); Glomerular Filtration Rate 29 mL/min (>89); Glucose,Random 108 mg/dL (74-106); Potassium 3.5 meq/L (3.5-5.1); Sodium 142 meq/L (136-145)
[2018-02-04 06:52] LABS: Alanine Aminotransferase 16 U/L (12-78); Cholesterol 190 mg/dL (120-200); Triglycerides 135 mg/dL (42-150)
[2018-02-04 06:54] LABS: Alkaline Phosphatase 120 U/L (45-117); Chol/HDL Ratio 6.12 Ratio; LDL Cholesterol,Calculated 132 mg/dL (0-99); Total Protein 7.6 g/dL (6.4-8.2)
[2018-02-04] MEDS: Senna/Docusate Sodium 8.6/50 MG Tablet PO SCH ×2 (08:37→20:39)
[2018-02-04] MEDS: Heparin - SQ 10,000 UNITS/ML Vial SQ SCH ×2 (08:37→20:39)
[2018-02-04 09:09] LABS: Bilirubin,Urine Negative (Negative); Clarity,Urine Clear (Clear); Color,Urine Straw (Yellw/Straw); Glucose,Urine (UA) 50 mg/dL (Negative); Leukocyte Esterase,Urine Negative (Negative); Nitrite,Urine Negative (Negative); Specific Gravity,Urine 1.009 (1.002-1.035)
[2018-02-04 09:49] LABS: Amphetamine Screen,Urine Neg (Neg); Barbiturate Screen,Urine Neg (Neg); Cannabinoid Screen,Urine Neg (Neg); Cocaine Screen,Urine Neg (Neg)
[2018-02-04 09:54] LABS: Opiate Screen,Urine Neg (Neg)
--- NOTE | 2018-02-04 12:41 | MB ---
cc: Dionicio Booker MD DATE: 02/03/2018 REASON FOR CONSULTATION: Chronic kidney disease management. HISTORY OF PRESENT ILLNESS: This is a 47-year-old male with a history of hypertension, CKD, and noncompliance due to lack of insurance. The patient presented to the emergency room last night with chest pain for 1 day. He presented with a blood pressure of 232/139. The patient was treated for blood pressure in the ER and continued on his home medications, which he had not been taking for approximately 1 week. Today, his blood pressures improved to 160/79. He reports the chest pains have improved and he is being evaluated for chest pains with the primary team. The patient also has a chronic left lower extremity wound with no underlying bony issues on the x-rays here. At this time, he is resting in bed comfortably and reports his chest pain symptoms have resolved. Nephrology was consulted for further evaluation. Regarding his renal function, his baseline creatinine has ranged between 2.4 and 4.2 since March of this year. He has underlying CKD stage III-IV. For his renal issues, the patient is followed with Dr. Florez in [place] in the past; however, he has run out of insurance and has not seen a crew member recently. He was last seen here inpatient with Dr. Stevens several months ago and has been seen by numerous nephrologists during his visits here in the past. He had a renal ultrasound, which was within normal limits 2 months ago. At this time, he is resting in bed comfortably. Nephrology was consulted for further evaluation. REVIEW OF SYSTEMS: The patient denies any fevers, chills. No nausea, no vomiting, no diarrhea. The patient did have chest pains and weakness, which are improved at this point. No dizziness or loss of consciousness. No bleeding. Otherwise, review of systems negative. PAST MEDICAL HISTORY: Includes brain aneurysm, hypertension, peripheral vascular disease. PAST SURGICAL HISTORY: Previous gastritis and gastrointestinal bleed with embolization in September of this year with interventional radiology. SOCIAL HISTORY: No tobacco, alcohol, or drug use. The patient lives at home. FAMILY HISTORY: Noncontributory. ALLERGIES: NO KNOWN DRUG ALLERGIES. MEDICATIONS AT HOME: The patient had been noncompliant with his blood pressure medications; however, these were restarted here. ASSESSMENT AND PLAN: 1. Chronic kidney disease stage IV. The patient has a baseline creatinine in this range between 2.4 and 4.2 since March of this year. He previously had a creatinine of 3.22 in November. He presented here with a creatinine of 3.4, which improved to a level of 2.8 overnight. I suspect he has chronic kidney disease secondary primarily to hypertension. There may be an element of proteinuria here. He has urea with more than 500 protein today; however, his previous UA in November showed only 30 protein. I will go ahead and further quantify urine protein to creatinine ratio. He had a renal ultrasound here done only 2 months ago, which was otherwise within normal limits. Hemoglobin A1c is also pending at this point. At this time, his renal function is stable. His creatinine is actually improved to a level of 2.8. Continue with blood pressure medication. Advised compliance as tolerated. The patient was closely followed with Dr. Florez in the past; however, he has recently lost his insurance and has not been able to follow up with outpatient nephrology. Recommend to continue to treat blood pressure. Ideally, the patient can reestablish insurance and follow up with nephrology again; however, at this point, continue to monitor. The patient was advised in the termite treater to follow up with the [facility] and to continue with blood pressure medication management as tolerated. At this point, there is no acute need for any hemodialysis. His blood pressure stabilized. We will continue to monitor closely. 2. Hypertension. Blood pressure is significantly improved with resumption of medications. He had initial systolic blood pressure in the 250s, which is improved to the 150s now. Continue with medications. 3. Chest pains. Continue to follow up with primary team. Troponin is negative at this point. 4. Foot wound. Continue with wound care. No signs of osteomyelitis per x-ray imaging. Continue to monitor. 5. History of sleep apnea. Continue to monitor. 6. History of GI bleed. The patient had embolization of bleeding artery per interventional radiology in September of this year. His hemoglobin is stable at 11.7. He was previously on NSAIDs. Continue to monitor at this point. 7. History of iron-deficiency anemia. He was treated with IV iron in the past. His hemoglobin is stable at this point. Continue to monitor. 8. Noncompliance. The patient has been noncompliant secondary to lack of insurance. Advised the patient to follow up with [facility]. Continue to follow with the primary team. MD NEERU Maher/obi , 11:00 AM , 11:12 AM HERMINIA
--- NOTE | 2018-02-04 13:56 | P.PNIM ---
Subjective Interval history: Patient reports he is feeling okay. Denies chest pain or shortness of breath. We discussed the need to be compliant at length. Physical Exam Vital signs: Vital Signs 02/03/18 18:19 02/03/18 18:36 02/03/18 20:37 Temperature 99.1 F Pulse Rate 71 65 63 Respiratory Rate 18 18 28 H Blood Pressure 251/127 H 209/123 H 232/139 H Pulse Oximetry 98 96 96 02/03/18 21:16 02/03/18 21:50 02/03/18 22:31 Temperature Pulse Rate 60 58 L 55 L Respiratory Rate 20 20 18 Blood Pressure 219/116 H 206/109 H 183/108 H Pulse Oximetry 96 97 96 02/04/18 00:56 02/04/18 01:51 02/04/18 02:27 Temperature Pulse Rate 63 57 L 63 Respiratory Rate 16 18 18 Blood Pressure 217/116 H 194/101 H 188/98 H Pulse Oximetry 96 97 96 02/04/18 04:00 02/04/18 04:30 02/04/18 05:00 Temperature 98.6 F Pulse Rate 66 64 64 Respiratory Rate 22 22 20 Blood Pressure 201/127 H 193/123 H 216/105 H Pulse Oximetry 97 97 97 02/04/18 06:00 02/04/18 07:00 02/04/18 08:00 Temperature 98.9 F Pulse Rate 76 77 72 Respiratory Rate 18 Blood Pressure 163/84 H Pulse Oximetry 99 02/04/18 08:46 02/04/18 09:00 02/04/18 10:00 Temperature Pulse Rate 72 60 Respiratory Rate Blood Pressure Pulse Oximetry 98 02/04/18 10:20 02/04/18 11:00 02/04/18 12:00 Temperature 98.7 F Pulse Rate 62 59 L 62 Respiratory Rate 18 18 Blood Pressure 160/79 H 142/63 H Pulse Oximetry 97 96 02/04/18 13:00 Temperature Pulse Rate 69 Respiratory Rate Blood Pressure Pulse Oximetry Intake & Output 02/03/18 02/04/18 02/04/18 18:59 06:59 18:59 Intake Total 740 / 740 Balance 740 / 740 Weight 142.882 kg 139.8 kg Intake: IV 500 / 500 NS Inj 1,000 ML @ 100 mls/hr IV 500 / 500 .CONT .Q10H RASHAAD Rx#:[id number] Oral 240 / 240 Other: # Voids 1 Date of Last Bowel Movement 02/03/18 Weight On Admission 139.7 kg Narrative: GENERAL: Middle-aged black male in no acute distress. HEENT: PERRLA, EOMI. No scleral icterus or conjunctival pallor. No lid lag or facial droop. CARDIOVASCULAR: Regular rate and rhythm. No obvious murmurs to auscultation. No chest tenderness to palpation. RESPIRATORY: No obvious rhonchi or wheezing. Clear to auscultation. Breath sounds equal bilaterally. GASTROINTESTINAL: Abdomen soft, non-tender, nondistended. BS normal. MUSCULOSKELETAL: Left lower extremity with chronic wound and foul-smelling drainage. Results - Labs CBC & Chem 7: 02/04/18 05:57 02/04/18 05:57 Laboratory Results - last 24 hr 02/03/18 02/03/18 02/03/18 18:45 18:45 18:45 WBC 4.3 RBC 4.24 L Hgb 11.7 L Hct 35.7 L MCV 84.4 MCH 27.7 MCHC 32.8 RDW 17.5 H Plt Count 212 MPV 8.5 Prelim Diff (Auto) Neut % (Auto) 49.7 Lymph % (Auto) 33.2 Aurora % (Auto) 11.8 H Eos % (Auto) 4.2 H Baso % (Auto) 1.1 Neut # (Auto) 2.1 Lymph # (Auto) 1.4 Aurora # (Auto) 0.5 Eos # (Auto) 0.2 Baso # (Auto) 0.0 WBC Differential . Diff Scan Differential Comment Auto diff final PT 10.0 INR 1.0 APTT 24.5 Sodium 141 Potassium 3.7 Chloride 108 H Carbon Dioxide 24.6 Anion Gap 8 BUN 35 H Creatinine 3.42 H Estimated GFR 23 L Random Glucose 102 Calcium 8.3 L Total Bilirubin AST ALT Alkaline Phosphatase Total Creatine Kinase 118 CK-MB (CK-2) 1.0 Troponin I Less than 0.02 L Total Protein Albumin Triglycerides Cholesterol LDL Cholesterol, Calc HDL Cholesterol Cholesterol/HDL Ratio Urine Color Urine Clarity Urine pH Ur Specific Parshall Urine Protein Urine Glucose (UA) Urine Ketones Urine Occult Blood Urine Nitrate Urine Bilirubin Urine Urobilinogen Ur Leukocyte Esterase Urine RBC Urine WBC Micro UA Comment Urine Culture Comments Urine Opiates Screen Ur Barbiturates Screen Ur Amphetamines Screen U Benzodiazepines Scrn Urine Cocaine Screen U Cannabinoids Screen 02/04/18 02/04/18 02/04/18 00:47 05:57 05:57 WBC 8.0 D RBC 4.79 Hgb 13.6 Hct 40.4 MCV 84.3 MCH 28.4 MCHC 33.7 RDW 17.6 H Plt Count 210 MPV 8.6 Prelim Diff (Auto) Slide review pending Neut % (Auto) 62.6 Lymph % (Auto) 24.5 Aurora % (Auto) 8.0 Eos % (Auto) 3.9 Baso % (Auto) 1.0 Neut # (Auto) 5.0 Lymph # (Auto) 2.0 Aurora # (Auto) 0.6 Eos # (Auto) 0.3 Baso # (Auto) 0.1 WBC Differential . Diff Scan Auto diff confirmed Differential Comment . PT INR APTT Sodium 142 Potassium 3.5 Chloride 108 H Carbon Dioxide 23.3 Anion Gap 11 BUN 31 H Creatinine 2.87 H Estimated GFR 29 L Random Glucose 108 H Calcium 8.4 L Total Bilirubin 0.5 AST 15 ALT 16 Alkaline Phosphatase 120 H Total Creatine Kinase CK-MB (CK-2) Troponin I Less than 0.02 L Total Protein 7.6 Albumin 3.4 Triglycerides 135 Cholesterol 190 LDL Cholesterol, Calc 132 H HDL Cholesterol 31.0 L Cholesterol/HDL Ratio 6.12 Urine Color Urine Clarity Urine pH Ur Specific Parshall Urine Protein Urine Glucose (UA) Urine Ketones Urine Occult Blood Urine Nitrate Urine Bilirubin Urine Urobilinogen Ur Leukocyte Esterase Urine RBC Urine WBC Micro UA Comment Urine Culture Comments Urine Opiates Screen Ur Barbiturates Screen Ur Amphetamines Screen U Benzodiazepines Scrn Urine Cocaine Screen U Cannabinoids Screen 02/04/18 02/04/18 02/04/18 05:57 08:34 08:34 WBC RBC Hgb Hct MCV MCH MCHC RDW Plt Count MPV Prelim Diff (Auto) Neut % (Auto) Lymph % (Auto) Aurora % (Auto) Eos % (Auto) Baso % (Auto) Neut # (Auto) Lymph # (Auto) Aurora # (Auto) Eos # (Auto) Baso # (Auto) WBC Differential Diff Scan Differential Comment PT INR APTT Sodium Potassium Chloride Carbon Dioxide Anion Gap BUN Creatinine Estimated GFR Random Glucose Calcium Total Bilirubin AST ALT Alkaline Phosphatase Total Creatine Kinase CK-MB (CK-2) Troponin I Less than 0.02 L Total Protein Albumin Triglycerides Cholesterol LDL Cholesterol, Calc HDL Cholesterol Cholesterol/HDL Ratio Urine Color Straw Urine Clarity Clear Urine pH 6.0 Ur Specific Parshall 1.009 Urine Protein 500 or greater Urine Glucose (UA) 50 Urine Ketones Negative Urine Occult Blood Negative Urine Nitrate Negative Urine Bilirubin Negative Urine Urobilinogen Less than 2 Ur Leukocyte Esterase Negative Urine RBC Less than 1 Urine WBC Less than 1 Micro UA Comment Culture not ind Urine Culture Comments Culture not ind Urine Opiates Screen Neg Ur Barbiturates Screen Neg Ur Amphetamines Screen Neg U Benzodiazepines Scrn Neg Urine Cocaine Screen Neg U Cannabinoids Screen Neg Microbiology 02/03/18 21:15 Wound - Leg Gram Stain - Final - Imaging Impressions Chest X-Ray 02/03/18 18:43 CONCLUSION: No acute cardiopulmonary disease. Tibia/Fibula X-Ray 02/03/18 21:00 CONCLUSION: Soft tissue prominence with no underlying bony abnormality. Assessment and Plan - Assessment (1) HTN (hypertension) Code(s): I10 - Essential (primary) hypertension Status: Acute (2) Chest pain Code(s): R07.9 - Chest pain, unspecified Status: Acute (3) CKD (chronic kidney disease) Code(s): N18.9 - Chronic kidney disease, unspecified Status: Acute (4) Leg wound, left Code(s): S81.802A - Unspecified open wound, left lower leg, initial encounter Status: Acute - Plan 47-year-old male with: HTN urgency: Uncontrolled, secondary to Non-Compliance, BP 232/139, HR 63, s/p Nifedipine 60mg PO, Metoprolol 75mg PO, Hydralazine 50mg PO, Clonidine 0.1mg PO and NTG w/ minimal improvement. -We will continue on clonidine and Procardia. Blood pressure improved. Chest Pain: Likely demand ischemia from accelerated hypertension. Serial cardiac enzymes and EKG negative. CKD: Acute on Chronic Renal Failure, likely due to chronically uncontrolled HTN from non-compliance, no outpatient follow-up -Appreciate nephrology input. Recommends controlling blood pressure and conservative management for now. Outpatient follow-up. LLE Wound: +foul-smelling wound to left lower extremity, X-ray w/ soft tissue prominence, no underlying bony abnormality, images reviewed. Follow up wound cultures -Podiatry consulted. Dr. Zaidi. Noncompliance: The patient was counseled at length today about the risk of stroke, heart failure, heart attack from uncontrolled hypertension and lack of medical follow-up. He voiced understanding. DVT Prophylaxis: Heparin sq Discharge Planning: Possible discharge in the next 1-2 days. Podiatry consult appreciated. (2) Chest pain Qualifiers: Chest pain type: unspecified Qualified Code(s): R07.9 - Chest pain, unspecified
--- NOTE | 2018-02-04 16:05 | ECG ---
Date Performed: 02/03/2018 Time Performed: 18:33:28 PTAGE: 47 years EKG: Sinus rhythm POSSIBLE LEFT ATRIAL ENLARGEMENT NONSPECIFIC T-WAVE ABNORMALITY When compared to previous tracing, p remature atrial contractions Are no longer present, otherwise no significant change. BORDERLINE ECG PREVIOUS TRACING : 11/22/2017 11.41 DOCTOR: Francisco J Canas Interpretating Date/Time 02/04/2018 16:05:21
--- NOTE | 2018-02-04 16:06 | ECG ---
Date Performed: 02/04/2018 Time Performed: 01:30:28 PTAGE: 47 years EKG: SINUS BRADYCARDIA NONSPECIFIC T-WAVE ABNORMALITY Since previous tracing, no significant miguelito nge noted BORDERLINE ECG PREVIOUS TRACING : 02/03/2018 18.33 DOCTOR: Francisco J Canas Interpretating Date/Time 02/04/2018 16:05:48
[2018-02-04 18:33] LABS: Protein/Creatinine Ratio,Urine 2.29 (0.00-0.14)
--- NOTE | 2018-02-04 20:45 | P.CON ---
History of Present Illness Service: Foot and ankle surgery/podiatry Consult date: 02/04/18 Primary Care Provider: Blayne Zavala MD Family Provider: Blayne Zavala MD History of Present Illness: Podiatry consulted for this 47 year old male with PMHx of HTN, CKD and Non- compliance who presented to the ER w/ complaints of chest pain x1 day. Patient is well known to the service as he had had multiple surgical debridements with graft placement to left posterior leg. He has been followed in office and has made significant progress however he has failed out patient antibiotics and is unabel to tolerate office debridements. He denies any N,V,F,Ch or SOB. Review of Systems All other systems reviewed negative except as stated in HPI PMFSH - History History Provided By: Patient - Medical History Medical History: Medical History (Last Reviewed 02/04/18 @ 20:39 by Teodora Zaidi DPM) FHx: brain aneurysm Hypertension PVD (peripheral vascular disease) - Tobacco History Second Hand Smoke Exposure: No Tobacco Use In Past 30 Days: No Smoking Status: Never smoker - Alcohol History How Often Do You Have a Drink Containing Alcohol: Monthly or less - Substance Use History Substance History: No History of Abuse - Travel History Recent Travel in the [place] Within the Last 8 Weeks: No Recent Travel Out of the Country Within the Last 8 Weeks: No - Immunization History Tetanus Immunization: Unsure Hx Influenza Vaccine This Season: No Medications and Allergies Active Medications: Active Medications Acetaminophen (Tylenol) 650 mg PO Q4H PRN PRN Reason: Temp > 100.4 Al Hydroxide/Mg Hydroxide (Milk Of Magnesia Liq) 30 ml PO Q12H PRN PRN Reason: Mild Constipation Aspirin (Ecotrin) 325 mg PO DAILY [facility] Last Admin: 02/04/18 08:36 Dose: 325 mg Bisacodyl (Dulcolax Supp) 10 mg RECTAL DAILY PRN PRN Reason: SEVERE CONSITIPATION Clonidine HCl (Catapres) 0.2 mg PO Q12HR [facility] Last Admin: 02/04/18 08:37 Dose: 0.2 mg Heparin Sodium (Porcine) (Heparin Inj) 5,000 units SQ Q12H RASHAAD Last Admin: 02/04/18 08:37 Dose: 5,000 units Lactulose (Lactulose Liq) 30 ml PO DAILY PRN PRN Reason: SEVERE CONSITIPATION Morphine Sulfate (Morphine Inj) 2 mg IV.PUSH Q4H PRN PRN Reason: PAIN 6-10 Nifedipine (Procardia Xl) 60 mg PO DAILY [facility] Last Admin: 02/04/18 08:36 Dose: 60 mg Nitroglycerin (Nitro-Bid 2% Oint) 0.5 inch TOPICAL Q6HR PRN PRN Reason: CHEST PAIN Ondansetron HCl (Zofran Inj) 4 mg IV.PUSH Q6H PRN PRN Reason: NAUSEA OR VOMITING Pravastatin Sodium (Pravachol) 40 mg PO DAILY [facility] Last Admin: 02/04/18 08:36 Dose: 40 mg Senna/Docusate Sodium (Alyssa-Colace) 1 tab PO BID [facility] Last Admin: 02/04/18 08:37 Dose: Not Given Sennosides (Senokot) 17.2 mg PO Q12H PRN PRN Reason: Moderate Constipation Sodium Chloride (Ns Flush) 2 ml IV.FLUSH UNSCH PRN PRN Reason: FLUSH AFTER USING IV ACCESS Temazepam (Restoril) 15 mg PO HS PRN PRN Reason: INSOMNIA Allergies Allergy/AdvReac Type Severity Reaction Status Date / Time nka Allergy Unknown Uncoded 02/26/03 01:23 No Known Allergies Allergy Unknown Uncoded 10/07/17 22:56 Home Medications Medication Instructions Recorded Confirmed Type Additional Bp Meds 02/03/18 History clonidine HCl 0.1 mg PO BID 02/03/18 02/03/18 History furosemide 20 mg PO BID 02/03/18 02/03/18 History Physical Exam Vital signs: Vital Signs 02/03/18 20:37 02/03/18 21:16 02/03/18 21:50 Temperature Pulse Rate 63 60 58 L Respiratory Rate 28 H 20 20 Blood Pressure 232/139 H 219/116 H 206/109 H Pulse Oximetry 96 96 97 02/03/18 22:31 02/04/18 00:56 02/04/18 01:51 Temperature Pulse Rate 55 L 63 57 L Respiratory Rate 18 16 18 Blood Pressure 183/108 H 217/116 H 194/101 H Pulse Oximetry 96 96 97 02/04/18 02:27 02/04/18 04:00 02/04/18 04:30 Temperature 98.6 F Pulse Rate 63 66 64 Respiratory Rate 18 22 22 Blood Pressure 188/98 H 201/127 H 193/123 H Pulse Oximetry 96 97 97 02/04/18 05:00 02/04/18 06:00 02/04/18 07:00 Temperature Pulse Rate 64 76 77 Respiratory Rate 20 Blood Pressure 216/105 H Pulse Oximetry 97 02/04/18 08:00 02/04/18 08:46 02/04/18 09:00 Temperature 98.9 F Pulse Rate 72 72 Respiratory Rate 18 Blood Pressure 163/84 H Pulse Oximetry 99 98 02/04/18 10:00 02/04/18 10:20 02/04/18 11:00 Temperature Pulse Rate 60 62 59 L Respiratory Rate 18 Blood Pressure 160/79 H Pulse Oximetry 97 02/04/18 12:00 02/04/18 13:00 02/04/18 14:00 Temperature 98.7 F Pulse Rate 62 69 74 Respiratory Rate 18 Blood Pressure 142/63 H Pulse Oximetry 96 02/04/18 15:00 02/04/18 16:00 02/04/18 17:00 Temperature 98.7 F Pulse Rate 63 70 72 Respiratory Rate 18 Blood Pressure 129/91 H Pulse Oximetry 97 97 02/04/18 18:00 Temperature Pulse Rate 72 Respiratory Rate Blood Pressure Pulse Oximetry Intake & Output 02/04/18 02/04/18 02/05/18 06:59 18:59 06:59 Intake Total 740 / 740 720 / 720 Output Total 500 / 500 Balance 740 / 740 220 / 220 Weight 139.8 kg Intake: IV 500 / 500 NS Inj 1,000 ML @ 100 mls/hr IV 500 / 500 .CONT .Q10H RASHAAD Rx#:[id number] Oral 240 / 240 720 / 720 Output: Urine 500 / 500 Other: # Voids 1 Date of Last Bowel Movement 02/03/18 Weight On Admission 139.7 kg Narrative: GENERAL: This is a well-nourished, well-developed patient, in no apparent distress. SKIN: Left posterior leg ulceration HEAD: Atraumatic. EYES: Pupils equal round and reactive. ENT: Airway patent. NECK: Trachea midline. RESPIRATORY: Nonlabored breathing. MUSCULOSKELETAL:. Negative Homans sign bilaterally. NEUROLOGICAL: Awake and alert. Normal speech. Lower extremity physical exam: Vascular: Dorsalis pedis palpable, posterior tibial palpable. Capillary refill time within normal limits to digits 5 bilateral foot. Edema present left lower extremity. Neuro: Gross sensation intact to bilateral lower extremity. Pinpoint sensation intact. No hyperalgesia noted to bilateral lower extremity Dermatology: Left posterior leg ulceration with rolled epithelialized borders and fibrotic granular base, multiple skin islands noted. Hyper granulation noted to left posterior leg. Serous drainage noted with positive malodor. No probe to bone. Musculoskeletal: Tender to palpation to posterior left leg ulceration. Assessment and Plan - Plan 47-year-old male with left posterior calf ulceration Medical optimization Patient to OR tomorrow if cleared by hospitalist and anesthesia left lower extremity Debridement and irrigation Anticipate return to OR for graft placement following debridement irrigation, early next week Consent to read Left posterior leg debridement and irrigation with possible graft placement NPO after midnight
[2018-02-05] MEDS ORDERED: Metoprolol Tartrate 25 MG Tablet PO SCH (01:00)
[2018-02-05] MEDS ORDERED: Chlorhexidine Gluconate 2% 1 Pack (2 Cloths) TOPICAL SCH (01:00)
[2018-02-05] MEDS ORDERED: Sodium Chlor 0.9% Inj 500 ML IV.SIG SCH (01:00)
[2018-02-05] MEDS: Morphine Inj 4 MG/ML Vial IV.PUSH PRN (01:48)
[2018-02-05 06:12] LABS: Alanine Aminotransferase 14 U/L (12-78); Albumin 2.9 g/dL (3.4-5.0); Anion Gap 9 meq/L (5-15); Aspartate Aminotransferase 9 U/L (15-37); Blood Urea Nitrogen 29 mg/dL (7-18); Calcium 8.1 mg/dL (8.5-10.1); Carbon Dioxide 22.9 meq/L (21.0-32.0); Chloride 108 meq/L (98-107); Glomerular Filtration Rate 27 mL/min (>89); Glucose,Random 104 mg/dL (74-106); Potassium 3.7 meq/L (3.5-5.1)
[2018-02-05 06:14] LABS: Alkaline Phosphatase 103 U/L (45-117); Total Protein 6.7 g/dL (6.4-8.2)
[2018-02-05 06:31] LABS: Sodium 140 meq/L (136-145)
[2018-02-05 07:17] LABS: Hematocrit 36.4 % (39.0-51.0); Mean Corpuscular HGB Conc 32.9 % (32.0-36.0); Mean Corpuscular Hemoglobin 28.1 pg (27.0-34.0); Mean Corpuscular Volume 85.2 fL (80.0-100.0); Platelet Count 190 th/mm3 (150-450); Red Blood Count 4.28 mil/mm3 (4.50-5.90); Red Cell Distribution Width 17.4 % (11.6-17.2); White Blood Count 3.8 th/mm3 (4.0-11.0)
[2018-02-05] MEDS: Senna/Docusate Sodium 8.6/50 MG Tablet PO SCH ×2 (08:14→21:35)
[2018-02-05] MEDS: Heparin - SQ 10,000 UNITS/ML Vial SQ SCH ×2 (10:06→21:34)
--- NOTE | 2018-02-05 10:21 | P.PNNP ---
Subjective Interval history: no acute complaints, no chest pains Physical Exam Vital signs: Vital Signs 02/04/18 10:20 02/04/18 11:00 02/04/18 12:00 Temperature 98.7 F Pulse Rate 62 59 L 62 Respiratory Rate 18 18 Blood Pressure 160/79 H 142/63 H Pulse Oximetry 97 96 02/04/18 13:00 02/04/18 14:00 02/04/18 15:00 Temperature Pulse Rate 69 74 63 Respiratory Rate Blood Pressure Pulse Oximetry 02/04/18 16:00 02/04/18 17:00 02/04/18 18:00 Temperature 98.7 F Pulse Rate 70 72 72 Respiratory Rate 18 Blood Pressure 129/91 H Pulse Oximetry 97 97 02/04/18 19:00 02/04/18 20:00 02/04/18 21:00 Temperature 97.7 F Pulse Rate 70 68 68 Respiratory Rate 24 Blood Pressure 154/91 H Pulse Oximetry 96 02/04/18 22:00 02/04/18 23:00 02/05/18 00:00 Temperature 98.4 F Pulse Rate 66 59 L 60 Respiratory Rate 22 Blood Pressure 154/96 H Pulse Oximetry 93 L 02/05/18 01:00 02/05/18 02:00 02/05/18 03:00 Temperature Pulse Rate 60 62 72 Respiratory Rate Blood Pressure Pulse Oximetry 02/05/18 03:29 02/05/18 04:00 02/05/18 05:00 Temperature 98.2 F Pulse Rate 71 75 72 Respiratory Rate 20 Blood Pressure 165/91 H Pulse Oximetry 98 02/05/18 06:00 02/05/18 08:00 02/05/18 09:13 Temperature 98.2 F Pulse Rate 61 62 Respiratory Rate 18 Blood Pressure 195/118 H 149/79 H Pulse Oximetry 18 L Intake & Output 02/04/18 02/05/18 02/05/18 18:59 06:59 18:59 Intake Total 720 / 720 240 / 240 Output Total 500 / 500 300 / 300 Balance 220 / 220 -60 / -60 Weight 140.6 kg Intake: Oral 720 / 720 240 / 240 Output: Urine 500 / 500 300 / 300 Other: Date of Last Bowel Movement 02/03/18 02/03/18 02/03/18 - Constitutional no acute distress - Routine HEENT Exam Head: Present: normocephalic Eye: Present: EOMI ENT: Present: mucous membranes moist - Routine Neck Exam Present: supple - Routine Respiratory Exam Present: decreased breath sounds - Routine Cardiovascular Exam Present: RRR - Routine Abdominal Exam Present: soft - Routine Extremities Exam Comments: lle wound with dressing - Routine Skin Exam Present: intact - Routine Neurological Exam Present: alert, oriented X3 - Detailed Neurological Exam: Coma Scale Eye Opening: Spontaneous - Routine Psychiatric Exam Present: normal affect Assessment and Plan - Assessment (1) CKD (chronic kidney disease) Code(s): N18.9 - Chronic kidney disease, unspecified Status: Acute Plan: CKD 4 Baseline between 2.4 and 4.2 since 03/2017. Creatinine of 3.22 in November. Creatinine 3.4 -> 2.8 -> 3 today. Appears to be near baseline renal function. CKD attributed to HTN in past. Renal USX done 11/2017 with signs of CKD. New findings of proteinuria on U/A: Only 30 protein on U/A 11/2017 Now with 2.2g protein. Hemoglobin A1c is also pending at this point, and there may be an element of diabetic nephropathy present. Will repeat protein/creatinine testing, follow A1C level. The patient was closely followed with Dr. Florez in the past; however, he has recently lost his insurance and has not been able to follow up with outpatient nephrology. Recommend to continue to treat blood pressure. Ideally the patient can reestablish insurance and follow up with nephrology again; however, at this point, continue to monitor. The patient was advised in the bed bug exterminator to follow up with the [facility] and to continue with blood pressure medication management as tolerated. (2) Chest pain Code(s): R07.9 - Chest pain, unspecified Status: Acute Qualifiers: Chest pain type: unspecified Qualified Code(s): R07.9 - Chest pain, unspecified Plan: symptoms resolved with HTN management and re-starting medications. Encouraged compliance, continue to monitor (3) Hypertension Code(s): I10 - Essential (primary) hypertension Status: Acute Qualifiers: Hypertension type: unspecified Qualified Code(s): I10 - Essential (primary ) hypertension (4) Leg wound, left Code(s): S81.802A - Unspecified open wound, left lower leg, initial encounter Status: Acute Plan: follow with Podiatry - for debridement Tuesday in OR (5) GI bleed Code(s): K92.2 - Gastrointestinal hemorrhage, unspecified Status: Acute Plan: History of GI bleed. The patient had embolization of bleeding artery per interventional radiology in September of this year. His hemoglobin is stable at 12. He was previously on NSAIDs. Continue to monitor at this point.
[2018-02-05] MEDS ORDERED: Lidocaine PF 1% Inj 5 ML Syringe INFILTRATN ONE (12:00)
[2018-02-05] MEDS ORDERED: Neostigmine Inj 5 MG/5 ML Syringe IV.PUSH ONE (12:00)
[2018-02-05] MEDS ORDERED: Sodium Chlor 0.9% Inj 500 ML IV.SIG ONE (12:00)
[2018-02-05] MEDS ORDERED: Glycopyrrolate Inj 1 MG/5 ML Syringe IV.PUSH ONE (12:00)
[2018-02-05] MEDS ORDERED: Phenylephrine/NS 1000 MCG/10ML Syringe IV.PUSH ONE (12:00)
--- NOTE | 2018-02-05 12:49 | P.PNPOD ---
Subjective Interval history: Patient seen bedside preoperatively. Patient is in agreement with left posterior leg ulcer debridement and irrigation. Physical Exam Vital signs: Vital Signs 02/04/18 13:00 02/04/18 14:00 02/04/18 15:00 Temperature Pulse Rate 69 74 63 Respiratory Rate Blood Pressure Pulse Oximetry 02/04/18 16:00 02/04/18 17:00 02/04/18 18:00 Temperature 98.7 F Pulse Rate 70 72 72 Respiratory Rate 18 Blood Pressure 129/91 H Pulse Oximetry 97 97 02/04/18 19:00 02/04/18 20:00 02/04/18 21:00 Temperature 97.7 F Pulse Rate 70 68 68 Respiratory Rate 24 Blood Pressure 154/91 H Pulse Oximetry 96 02/04/18 22:00 02/04/18 23:00 02/05/18 00:00 Temperature 98.4 F Pulse Rate 66 59 L 60 Respiratory Rate 22 Blood Pressure 154/96 H Pulse Oximetry 93 L 02/05/18 01:00 02/05/18 02:00 02/05/18 03:00 Temperature Pulse Rate 60 62 72 Respiratory Rate Blood Pressure Pulse Oximetry 02/05/18 03:29 02/05/18 04:00 02/05/18 05:00 Temperature 98.2 F Pulse Rate 71 75 72 Respiratory Rate 20 Blood Pressure 165/91 H Pulse Oximetry 98 02/05/18 06:00 02/05/18 08:00 02/05/18 09:13 Temperature 98.2 F Pulse Rate 61 62 Respiratory Rate 18 Blood Pressure 195/118 H 149/79 H Pulse Oximetry 18 L Intake & Output 02/04/18 02/05/18 02/05/18 18:59 06:59 18:59 Intake Total 720 / 720 240 / 240 Output Total 500 / 500 300 / 300 Balance 220 / 220 -60 / -60 Weight 140.6 kg Intake: Oral 720 / 720 240 / 240 Output: Urine 500 / 500 300 / 300 Other: Date of Last Bowel Movement 02/03/18 02/03/18 02/03/18 Narrative: Dressing to left lower extremity saturated with drainage. Capillary refill time intact digits 5 left lower extremity. Edema noted to left lower extremity. Medications and Allergies Active Medications: Active Medications Acetaminophen (Tylenol) 650 mg PO Q4H PRN PRN Reason: Temp > 100.4 Al Hydroxide/Mg Hydroxide (Milk Of Magnesia Liq) 30 ml PO Q12H PRN PRN Reason: Mild Constipation Aspirin (Ecotrin) 325 mg PO DAILY [facility] Last Admin: 02/05/18 08:13 Dose: 325 mg Bisacodyl (Dulcolax Supp) 10 mg RECTAL DAILY PRN PRN Reason: SEVERE CONSITIPATION Chlorhexidine Gluconate (Chlorhexidine 2% Cloth) 3 pack TOPICAL PSYCHOLOGIST PERSONNEL [facility] Stop: 02/08/18 00:47 Clonidine HCl (Catapres) 0.2 mg PO Q12HR [facility] Last Admin: 02/05/18 08:13 Dose: 0.2 mg Heparin Sodium (Porcine) (Heparin Inj) 5,000 units SQ Q12H [facility] Last Admin: 02/05/18 10:06 Dose: Not Given Lactated Ringer's (Lr 1000 Ml Inj) 1,000 mls @ 30 mls/hr IV.SIG .Q24H [facility] Stop: 02/08/18 00:47 Last Admin: 02/05/18 02:36 Dose: Not Given Sodium Chloride (Ns Inj) 500 mls @ 30 mls/hr IV.SIG .Q10H [facility] Stop: 02/08/18 00:47 Lactulose (Lactulose Liq) 30 ml PO DAILY PRN PRN Reason: SEVERE CONSITIPATION Metoprolol Tartrate (Lopressor) 25 mg PO PSYCHOLOGIST PERSONNEL [facility] Stop: 02/08/18 00:47 Last Admin: 02/05/18 06:29 Dose: 25 mg Morphine Sulfate (Morphine Inj) 2 mg IV.PUSH Q4H PRN PRN Reason: PAIN 6-10 Last Admin: 02/05/18 01:48 Dose: 2 mg Nifedipine (Procardia Xl) 60 mg PO DAILY [facility] Last Admin: 02/05/18 08:13 Dose: 60 mg Nitroglycerin (Nitro-Bid 2% Oint) 0.5 inch TOPICAL Q6HR PRN PRN Reason: CHEST PAIN Ondansetron HCl (Zofran Inj) 4 mg IV.PUSH Q6H PRN PRN Reason: NAUSEA OR VOMITING Povidone Iodine (Betadine 5% Antisepsis Kit) 1 applicatio EACH NARE PSYCHOLOGIST PERSONNEL [facility] Stop: 02/08/18 00:47 Pravastatin Sodium (Pravachol) 40 mg PO DAILY [facility] Last Admin: 02/05/18 08:14 Dose: 40 mg Senna/Docusate Sodium (Alyssa-Colace) 1 tab PO BID [facility] Last Admin: 02/05/18 08:14 Dose: Not Given Sennosides (Senokot) 17.2 mg PO Q12H PRN PRN Reason: Moderate Constipation Sodium Chloride (Ns Flush) 2 ml IV.FLUSH UNSCH PRN PRN Reason: FLUSH AFTER USING IV ACCESS Temazepam (Restoril) 15 mg PO HS PRN PRN Reason: INSOMNIA Allergies Allergy/AdvReac Type Severity Reaction Status Date / Time nka Allergy Unknown Uncoded 02/26/03 01:23 No Known Allergies Allergy Unknown Uncoded 10/07/17 22:56 Home Medications Medication Instructions Recorded Confirmed Type Additional Bp Meds 02/03/18 History clonidine HCl 0.1 mg PO BID 02/03/18 02/03/18 History furosemide 20 mg PO BID 02/03/18 02/03/18 History Results - Labs CBC & Chem 7: 02/05/18 06:47 02/05/18 04:40 Laboratory Results - last 24 hr 02/04/1818 18 17:15 17:15 04:40 WBC RBC Hgb Hct MCV MCH MCHC RDW Plt Count MPV Sodium 140 Potassium 3.7 Chloride 108 H Carbon Dioxide 22.9 Anion Gap 9 BUN 29 H Creatinine 3.03 H Estimated GFR 27 L Random Glucose 104 Calcium 8.1 L Total Bilirubin 0.5 AST 9 L ALT 14 Alkaline Phosphatase 103 Total Protein 6.7 D Albumin 2.9 L Ur Random Creatinine 250 U Random Total Protein 571.8 H Ur Random Sodium 31 Protein/Creatinin Ratio 2.29 H 02/05/18 06:47 WBC 3.8 L RBC 4.28 L Hgb 12.0 L Hct 36.4 L MCV 85.2 MCH 28.1 MCHC 32.9 RDW 17.4 H Plt Count 190 MPV 8.0 Sodium Potassium Chloride Carbon Dioxide Anion Gap BUN Creatinine Estimated GFR Random Glucose Calcium Total Bilirubin AST ALT Alkaline Phosphatase Total Protein Albumin Ur Random Creatinine U Random Total Protein Ur Random Sodium Protein/Creatinin Ratio Microbiology 02/03/18 21:15 Wound - Leg Gram Stain - Final 02/03/18 21:15 Wound - Leg Wound Culture - Preliminary gram negative rods Group D Enterococcus Assessment and Plan - Plan 47-year-old male with left posterior leg ulceration To OR for debridement irrigation of left posterior leg ulceration Patient is agreement with procedure understands the risks benefits complications associated with procedure Consent signed and obtained Left lower extremity marked Anticipate return to OR later this week for graft placement We will follow OR cultures
[2018-02-05 13:19] LABS: Hemoglobin A1c 5.6 % (4.3-6.0)
--- NOTE | 2018-02-05 13:27 | P.PNIM ---
Subjective Interval history: Patient reports he is doing okay today. Will have a left leg ulcer debridement today. No chest pain or shortness of breath. Physical Exam Vital signs: Vital Signs 02/04/18 14:00 02/04/18 15:00 02/04/18 16:00 Temperature 98.7 F Pulse Rate 74 63 70 Respiratory Rate 18 Blood Pressure 129/91 H Pulse Oximetry 97 02/04/18 17:00 02/04/18 18:00 02/04/18 19:00 Temperature Pulse Rate 72 72 70 Respiratory Rate Blood Pressure Pulse Oximetry 97 02/04/18 20:00 02/04/18 21:00 02/04/18 22:00 Temperature 97.7 F Pulse Rate 68 68 66 Respiratory Rate 24 Blood Pressure 154/91 H Pulse Oximetry 96 02/04/18 23:00 02/05/18 00:00 02/05/18 01:00 Temperature 98.4 F Pulse Rate 59 L 60 60 Respiratory Rate 22 Blood Pressure 154/96 H Pulse Oximetry 93 L 02/05/18 02:00 02/05/18 03:00 02/05/18 03:29 Temperature 98.2 F Pulse Rate 62 72 71 Respiratory Rate 20 Blood Pressure 165/91 H Pulse Oximetry 98 02/05/18 04:00 02/05/18 05:00 02/05/18 06:00 Temperature Pulse Rate 75 72 61 Respiratory Rate Blood Pressure Pulse Oximetry 02/05/18 08:00 02/05/18 09:13 Temperature 98.2 F Pulse Rate 62 Respiratory Rate 18 Blood Pressure 195/118 H 149/79 H Pulse Oximetry 18 L Intake & Output 02/04/18 02/05/18 02/05/18 18:59 06:59 18:59 Intake Total 720 / 720 240 / 240 Output Total 500 / 500 300 / 300 Balance 220 / 220 -60 / -60 Weight 140.6 kg Intake: Oral 720 / 720 240 / 240 Output: Urine 500 / 500 300 / 300 Other: Date of Last Bowel Movement 02/03/18 02/03/18 02/03/18 Narrative: GENERAL: Obese male, in no apparent distress. CARDIOVASCULAR: Normal rate and regular rhythm without murmurs, gallops, or rubs. RESPIRATORY: Good respiratory efforts. Breath sounds equal and clear to auscultation bilaterally. GASTROINTESTINAL: Abdomen soft, non-tender, non-distended. Normal active bowel sounds MUSCULOSKELETAL: Left lower extremity has a dressing that is soaked with malodorous drainage. NEURO: Alert & Oriented x4 to person, place, time, situation. Moves all ext x4 PSYCH: Appropriate mood and affect. Results - Labs CBC & Chem 7: 02/05/18 06:47 02/05/18 04:40 Laboratory Results - last 24 hr 02/04/18 02/04/18 02/05/18 17:15 17:15 04:40 WBC RBC Hgb Hct MCV MCH MCHC RDW Plt Count MPV Sodium 140 Potassium 3.7 Chloride 108 H Carbon Dioxide 22.9 Anion Gap 9 BUN 29 H Creatinine 3.03 H Estimated GFR 27 L Random Glucose 104 Calcium 8.1 L Total Bilirubin 0.5 AST 9 L ALT 14 Alkaline Phosphatase 103 Total Protein 6.7 D Albumin 2.9 L Ur Random Creatinine 250 U Random Total Protein 571.8 H Ur Random Sodium 31 Protein/Creatinin Ratio 2.29 H 02/05/18 06:47 WBC 3.8 L RBC 4.28 L Hgb 12.0 L Hct 36.4 L MCV 85.2 MCH 28.1 MCHC 32.9 RDW 17.4 H Plt Count 190 MPV 8.0 Sodium Potassium Chloride Carbon Dioxide Anion Gap BUN Creatinine Estimated GFR Random Glucose Calcium Total Bilirubin AST ALT Alkaline Phosphatase Total Protein Albumin Ur Random Creatinine U Random Total Protein Ur Random Sodium Protein/Creatinin Ratio Microbiology 02/03/18 21:15 Wound - Leg Gram Stain - Final 02/03/18 21:15 Wound - Leg Wound Culture - Preliminary gram negative rods Group D Enterococcus Assessment and Plan - Assessment (1) HTN (hypertension) Code(s): I10 - Essential (primary) hypertension Status: Acute (2) Chest pain Code(s): R07.9 - Chest pain, unspecified Status: Acute (3) CKD (chronic kidney disease) Code(s): N18.9 - Chronic kidney disease, unspecified Status: Acute (4) Leg wound, left Code(s): S81.802A - Unspecified open wound, left lower leg, initial encounter Status: Acute - Plan 47-year-old male with: HTN urgency: Uncontrolled, secondary to Non-Compliance, BP 232/139, HR 63, s/p Nifedipine 60mg PO, Metoprolol 75mg PO, Hydralazine 50mg PO, Clonidine 0.1mg PO and NTG w/ minimal improvement. -We will continue on clonidine and Procardia. Blood pressure improved. Chest Pain: Likely demand ischemia from accelerated hypertension. Serial cardiac enzymes and EKG negative. CKD: Acute on Chronic Renal Failure, likely due to chronically uncontrolled HTN from non-compliance, no outpatient follow-up -Appreciate nephrology input. Recommends controlling blood pressure and conservative management for now. Outpatient follow-up. LLE Wound: +foul-smelling wound to left lower extremity, X-ray w/ soft tissue prominence, no underlying bony abnormality, images reviewed. -Podiatry following. Dr. Zaidi. -Plan for debridement today and possible graft next week. -Wound cultures growing E. coli and enterococcus. Ampicillin and ceftriaxone ordered per sensitivity profile. Noncompliance: The patient was counseled at length today about the risk of stroke, heart failure, heart attack from uncontrolled hypertension and lack of medical follow-up. He voiced understanding. DVT Prophylaxis: Heparin sq Discharge Planning: Possible discharge in the next 1-2 days. Podiatry consult appreciated. (2) Chest pain Qualifiers: Chest pain type: unspecified Qualified Code(s): R07.9 - Chest pain, unspecified
--- NOTE | 2018-02-05 14:14 | P.PCN ---
Date of procedure: 02/05/18 Pre-op diagnosis: Left posterior leg ulceration Post-op diagnosis: same Procedure: Left posterior leg debridement irrigation Anesthesia: AGNIESZKA Surgeon: Teodora Zaidi Pathology: other (Wound culture, soft tissue left posterior ulceration for path) Condition: stable Disposition: PACU (With vital signs stable and neurovascular status intact to left lower extremity)
[2018-02-05] MEDS ORDERED: fentaNYL Citrate Inj 100 MCG/2 ML Ampul ONE (14:17)
[2018-02-05] MEDS ORDERED: Misc Info for Pharmacy OTHER STA (14:17)
--- NOTE | 2018-02-05 15:42 | MR ---
cc: Teodora Zaidi DPM DATE: 02/05/2018 This is a 47-year-old male. SURGEON: Teodora Zaidi DPM STIPPLER: None. PREOPERATIVE DIAGNOSIS: Left posterior leg ulceration. POSTOPERATIVE DIAGNOSIS: Left posterior leg ulceration. PROCEDURE: Debridement, irrigation of left posterior leg ulceration. ANESTHESIA: General. HEMOSTASIS: None. ESTIMATED BLOOD LOSS: 10 mL MATERIALS: None. INJECTABLES: 20 mL of 0.5% Marcaine plain infiltrated in V block fashion about the posterior calf ulceration. COMPLICATIONS: None. INDICATIONS FOR PROCEDURE: The patient is a 47-year-old male who underwent debridement and irrigation with graft placement for left posterior leg ulceration. The patient has been treated in the office with Unna boot and compression therapy, and there has been improvement noted to posterior leg ulceration. However recently, there has been increased drainage, malodor, as well as erythema and edema. The patient was sent to the emergency room, and he is here today for debridement and irrigation of left posterior leg ulceration. He understands all complications, benefits, alternatives, complications associated with the procedure. He would still like to proceed. DESCRIPTION OF PROCEDURE: The patient was brought back to the operating room. General anesthesia was induced. The patient was then placed in the prone position with all bony prominences well padded. The left lower extremity was prepped and draped in the usual sterile fashion. Attention was then directed to the left lower extremity, where 0.5% Marcaine plain, 20 mL total was infiltrated periwound in V block fashion. The wound was measuring 18.0 x 17.0 cm. There were noted to be multiple skin islands present. Full-thickness excisional debridement was performed to the subcutaneous tissue with a 15 blade. Versajet was also utilized to perform debridement. Following debridement with Versajet, Adaptic, gauze fluffs, 4 x 4's, cast padding, and Kwan were applied to the left lower extremity, compression to the knee was applied. The patient was placed on bed and extubated. The patient tolerated procedure and anesthesia well. He was transferred from the OR to PACU with vital signs stable and neurovascular status intact. He will remain in house and will consider graft placement to left posterior calf ulceration within the week pending OR cultures. Teodora Zaidi DPM JIFred/rm/ll , 02:11 PM , 02:19 PM [facility]
[2018-02-06] MEDS ORDERED: hydrALAZINE 50 MG Tablet PO ONE (00:06)
[2018-02-06 05:49] LABS: White Blood Count 3.8 th/mm3 (4.0-11.0)
[2018-02-06 05:50] LABS: Hematocrit 34.9 % (39.0-51.0); Hemoglobin 11.5 gm/dL (13.0-17.0); Mean Corpuscular HGB Conc 32.9 % (32.0-36.0); Mean Corpuscular Hemoglobin 28.2 pg (27.0-34.0); Mean Corpuscular Volume 85.8 fL (80.0-100.0); Mean Platelet Volume 8.2 fL (7.0-11.0); Platelet Count 197 th/mm3 (150-450); Red Blood Count 4.07 mil/mm3 (4.50-5.90)
[2018-02-06 06:08] LABS: Albumin 2.8 g/dL (3.4-5.0); Anion Gap 6 meq/L (5-15); Aspartate Aminotransferase 10 U/L (15-37); Blood Urea Nitrogen 30 mg/dL (7-18); Calcium 8.2 mg/dL (8.5-10.1); Carbon Dioxide 27.1 meq/L (21.0-32.0); Chloride 109 meq/L (98-107); Glomerular Filtration Rate 26 mL/min (>89); Glucose,Random 93 mg/dL (74-106); Potassium 3.8 meq/L (3.5-5.1); Sodium 142 meq/L (136-145)
[2018-02-06 06:12] LABS: Alanine Aminotransferase 11 U/L (12-78); Alkaline Phosphatase 103 U/L (45-117); Total Protein 6.3 g/dL (6.4-8.2)
--- NOTE | 2018-02-06 08:18 | P.PNPOD ---
Subjective Interval history: Doing well no pain over night Physical Exam Vital signs: Vital Signs 02/05/18 09:00 02/05/18 09:13 02/05/18 10:00 Temperature Pulse Rate 52 L 52 L Respiratory Rate Blood Pressure 149/79 H Pulse Oximetry 02/05/18 11:00 02/05/18 14:11 02/05/18 14:26 Temperature 98.0 F 97.4 F L Pulse Rate 51 L 80 72 Respiratory Rate 18 16 16 Blood Pressure 138/80 146/92 H 148/76 H Pulse Oximetry 98 95 100 02/05/18 14:48 02/05/18 14:59 02/05/18 15:00 Temperature 97.6 F Pulse Rate 71 68 Respiratory Rate 16 20 Blood Pressure 144/71 H 151/96 H Pulse Oximetry 94 L 94 L 91 L 02/05/18 15:34 02/05/18 16:00 02/05/18 17:00 Temperature 97.6 F Pulse Rate 60 62 Respiratory Rate 18 Blood Pressure 151/96 H Pulse Oximetry 94 L 91 L 02/05/18 18:00 02/05/18 19:00 02/05/18 20:00 Temperature 97.6 F Pulse Rate 62 70 58 L Respiratory Rate 22 Blood Pressure 173/86 H Pulse Oximetry 94 L 94 L 02/05/18 21:00 02/05/18 22:00 02/05/18 23:00 Temperature 97.4 F L Pulse Rate 74 62 51 L Respiratory Rate 20 Blood Pressure 174/110 H Pulse Oximetry 95 02/06/18 00:00 02/06/18 01:00 02/06/18 02:00 Temperature Pulse Rate 56 L 58 L 56 L Respiratory Rate Blood Pressure Pulse Oximetry 02/06/18 03:00 02/06/18 04:00 02/06/18 05:00 Temperature 98.1 F Pulse Rate 57 L 58 L 68 Respiratory Rate 20 Blood Pressure 168/99 H Pulse Oximetry 98 02/06/18 06:00 02/06/18 07:00 Temperature 98.6 F Pulse Rate 77 56 L Respiratory Rate 20 Blood Pressure 187/109 H Pulse Oximetry 98 Intake & Output 02/05/18 02/06/18 02/06/18 18:59 06:59 18:59 Intake Total 1420 / 1420 640 / 640 Output Total 400 / 400 600 / 600 Balance 1020 / 1020 40 / 40 Weight 141.1 kg Intake: IV 200 / 200 400 / 400 Ampicillin Inj 2,000 MG In NS 100 / 100 300 / 300 Inj 100 ML @ 400 mls/hr IV.SIG Q4H [facility] Rx#:[id number] Rocephin Inj 1,000 MG In NS Inj 100 / 100 100 / 100 100 ML @ 200 mls/hr IV.SIG Q12H [facility] Rx#:[id number] Oral 720 / 720 240 / 240 Anesthesia Amount 500 / 500 Output: Urine 390 / 390 600 / 600 Estimated Blood Loss Other: # Voids 3 Date of Last Bowel Movement 02/03/18 02/03/18 Narrative: Left LE: Fully red beefy posterior medial and lateral ankle ulcers with no exposed bone or tendon, minimal drainage, no odor, venous stasis hyperpigmentation, pedal pulses palpable sensation decreased to light touch, good muscle strength noted. Medications and Allergies Active Medications: Active Medications Acetaminophen (Tylenol) 650 mg PO Q4H PRN PRN Reason: Temp > 100.4 Al Hydroxide/Mg Hydroxide (Milk Of Jasbir Arechiga) 30 ml PO Q12H PRN PRN Reason: Mild Constipation Aspirin (Ecotrin) 325 mg PO DAILY [facility] Last Admin: 02/05/18 08:13 Dose: 325 mg Bisacodyl (Dulcolax Supp) 10 mg RECTAL DAILY PRN PRN Reason: SEVERE CONSITIPATION Chlorhexidine Gluconate (Chlorhexidine 2% Cloth) 3 pack TOPICAL [employer] [facility] Stop: 02/08/18 00:47 Clonidine HCl (Catapres) 0.2 mg PO Q12HR [facility] Last Admin: 02/05/18 21:33 Dose: 0.2 mg Heparin Sodium (Porcine) (Heparin Inj) 5,000 units SQ Q12H [facility] Last Admin: 02/05/18 21:34 Dose: 5,000 units Lactated Ringer's (Lr 1000 Ml Inj) 1,000 mls @ 30 mls/hr IV.SIG .Q24H [facility] Stop: 02/08/18 00:47 Last Admin: 02/06/18 01:26 Dose: Not Given Sodium Chloride (Ns Inj) 500 mls @ 30 mls/hr IV.SIG .Q10H [facility] Stop: 02/08/18 00:47 Ceftriaxone Sodium 1,000 mg/ (Sodium Chloride) 100 mls @ 200 mls/hr IV.SIG Q12H [facility] Last Infusion: 02/06/18 05:32 Dose: Infused Ampicillin Sodium 2,000 mg/ (Sodium Chloride) 100 mls @ 400 mls/hr IV.SIG Q4H [facility] Last Infusion: 02/06/18 06:04 Dose: Infused Lactulose (Lactulose Liq) 30 ml PO DAILY PRN PRN Reason: SEVERE CONSITIPATION Metoprolol Tartrate (Lopressor) 25 mg PO [employer] [facility] Stop: 02/08/18 00:47 Last Admin: 02/05/18 06:29 Dose: 25 mg Morphine Sulfate (Morphine Inj) 2 mg IV.PUSH Q4H PRN PRN Reason: PAIN 6-10 Last Admin: 02/05/18 01:48 Dose: 2 mg Nifedipine (Procardia Xl) 60 mg PO DAILY [facility] Last Admin: 02/05/18 08:13 Dose: 60 mg Nitroglycerin (Nitro-Bid 2% Oint) 0.5 inch TOPICAL Q6HR PRN PRN Reason: CHEST PAIN Ondansetron HCl (Zofran Inj) 4 mg IV.PUSH Q6H PRN PRN Reason: NAUSEA OR VOMITING Povidone Iodine (Betadine 5% Antisepsis Kit) 1 applicatio EACH NARE [employer] [facility] Stop: 02/08/18 00:47 Pravastatin Sodium (Pravachol) 40 mg PO DAILY [facility] Last Admin: 02/05/18 08:14 Dose: 40 mg Senna/Docusate Sodium (Alyssa-Colace) 1 tab PO BID [facility] Last Admin: 02/05/18 21:35 Dose: Not Given Sennosides (Senokot) 17.2 mg PO Q12H PRN PRN Reason: Moderate Constipation Sodium Chloride (Ns Flush) 2 ml IV.FLUSH UNSCH PRN PRN Reason: FLUSH AFTER USING IV ACCESS Temazepam (Restoril) 15 mg PO HS PRN PRN Reason: INSOMNIA Allergies Allergy/AdvReac Type Severity Reaction Status Date / Time nka Allergy Unknown Uncoded 02/26/03 01:23 No Known Allergies Allergy Unknown Uncoded 10/07/17 22:56 Home Medications Medication Instructions Recorded Confirmed Type Additional Bp Meds 02/03/18 History clonidine HCl 0.1 mg PO BID 02/03/18 02/03/18 History furosemide 20 mg PO BID 02/03/18 02/03/18 History Results - Labs CBC & Chem 7: 02/06/18 05:23 02/06/18 05:23 Laboratory Results - last 24 hr 02/04/18 02/06/18 02/06/18 05:57 05:23 05:23 WBC 3.8 L RBC 4.07 L Hgb 11.5 L Hct 34.9 L MCV 85.8 MCH 28.2 MCHC 32.9 RDW 17.0 Plt Count 197 MPV 8.2 Sodium 142 Potassium 3.8 Chloride 109 H Carbon Dioxide 27.1 Anion Gap 6 BUN 30 H Creatinine 3.13 H Estimated GFR 26 L Random Glucose 93 Hemoglobin A1c 5.6 Calcium 8.2 L Total Bilirubin 0.3 AST 10 L ALT 11 L Alkaline Phosphatase 103 Total Protein 6.3 L Albumin 2.8 L Microbiology 02/03/18 21:15 Wound - Leg Gram Stain - Final 02/03/18 21:15 Wound - Leg Wound Culture - Final Escherichia coli Enterococcus faecalis Assessment and Plan - Assessment (1) Ulcer of left lower extremity Code(s): L97.929 - Non-pressure chronic ulcer of unspecified part of left lower leg with unspecified severity Status: Acute (2) Venous stasis of lower extremity Code(s): I87.8 - Other specified disorders of veins Status: Acute - Plan Consult to woundcare nurse for Hernandez/ Luz Maria rose, needs to be changed q-3-5 days. Awaiting tissue and micro from surgery. Continue IV ABX and medical management. Will FU 2-3 days, improving.
[2018-02-06] MEDS: Senna/Docusate Sodium 8.6/50 MG Tablet PO SCH ×2 (08:19→22:34)
[2018-02-06] MEDS: Heparin - SQ 10,000 UNITS/ML Vial SQ SCH ×2 (08:21→22:34)
--- NOTE | 2018-02-06 13:25 | P.PNIM ---
Subjective Interval history: Patient reports he is feeling okay. Left leg wound dressing changed this morning by podiatry. Physical Exam Vital signs: Vital Signs 02/05/18 14:11 02/05/18 14:26 02/05/18 14:48 Temperature 97.4 F L Pulse Rate 80 72 71 Respiratory Rate 16 16 16 Blood Pressure 146/92 H 148/76 H 144/71 H Pulse Oximetry 95 100 94 L 02/05/18 14:59 02/05/18 15:00 02/05/18 15:34 Temperature 97.6 F Pulse Rate 68 Respiratory Rate 20 Blood Pressure 151/96 H Pulse Oximetry 94 L 91 L 94 L 02/05/18 16:00 02/05/18 17:00 02/05/18 18:00 Temperature 97.6 F Pulse Rate 60 62 62 Respiratory Rate 18 Blood Pressure 151/96 H Pulse Oximetry 91 L 02/05/18 19:00 02/05/18 20:00 02/05/18 21:00 Temperature 97.6 F Pulse Rate 70 58 L 74 Respiratory Rate 22 Blood Pressure 173/86 H Pulse Oximetry 94 L 94 L 02/05/18 22:00 02/05/18 23:00 02/06/18 00:00 Temperature 97.4 F L Pulse Rate 62 51 L 56 L Respiratory Rate 20 Blood Pressure 174/110 H Pulse Oximetry 95 02/06/18 01:00 02/06/18 02:00 02/06/18 03:00 Temperature 98.1 F Pulse Rate 58 L 56 L 57 L Respiratory Rate 20 Blood Pressure 168/99 H Pulse Oximetry 98 02/06/18 04:00 02/06/18 05:00 02/06/18 06:00 Temperature Pulse Rate 58 L 68 77 Respiratory Rate Blood Pressure Pulse Oximetry 02/06/18 07:00 02/06/18 08:00 02/06/18 09:28 Temperature 98.6 F Pulse Rate 56 L 58 L Respiratory Rate 20 Blood Pressure 187/109 H 157/104 H Pulse Oximetry 98 02/06/18 10:00 02/06/18 10:51 02/06/18 11:00 Temperature 98.3 F Pulse Rate 62 66 54 L Respiratory Rate 18 Blood Pressure 153/98 H 161/106 H Pulse Oximetry 99 02/06/18 12:00 02/06/18 13:00 Temperature Pulse Rate 58 L 52 L Respiratory Rate Blood Pressure Pulse Oximetry Intake & Output 02/05/18 02/06/18 02/06/18 18:59 06:59 18:59 Intake Total 1420 / 1420 640 / 640 100 / 100 Output Total 400 / 400 600 / 600 Balance 1020 / 1020 40 / 40 100 / 100 Weight 141.1 kg Intake: IV 200 / 200 400 / 400 100 / 100 Ampicillin Inj 2,000 MG In NS 100 / 100 300 / 300 100 / 100 Inj 100 ML @ 400 mls/hr IV.SIG Q4H [facility] Rx#:[id number] Rocephin Inj 1,000 MG In NS Inj 100 / 100 100 / 100 100 ML @ 200 mls/hr IV.SIG Q12H [facility] Rx#:[id number] Oral 720 / 720 240 / 240 Anesthesia Amount 500 / 500 Output: Urine 390 / 390 600 / 600 Estimated Blood Loss Other: # Voids 3 Date of Last Bowel Movement 02/03/18 02/03/18 02/03/18 Narrative: GENERAL: Obese male, in no apparent distress. CARDIOVASCULAR: Normal rate and regular rhythm without murmurs, gallops, or rubs. RESPIRATORY: Good respiratory efforts. Breath sounds equal and clear to auscultation bilaterally. GASTROINTESTINAL: Abdomen soft, non-tender, non-distended. Normal active bowel sounds MUSCULOSKELETAL: Left lower extremity has intact dressing. NEURO: Alert & Oriented x4 to person, place, time, situation. Moves all ext x4 PSYCH: Appropriate mood and affect. Results - Labs CBC & Chem 7: 02/06/18 05:23 02/06/18 05:23 Laboratory Results - last 24 hr 02/04/18 02/06/18 02/06/18 05:57 05:23 05:23 WBC 3.8 L RBC 4.07 L Hgb 11.5 L Hct 34.9 L MCV 85.8 MCH 28.2 MCHC 32.9 RDW 17.0 Plt Count 197 MPV 8.2 Sodium 142 Potassium 3.8 Chloride 109 H Carbon Dioxide 27.1 Anion Gap 6 BUN 30 H Creatinine 3.13 H Estimated GFR 26 L Random Glucose 93 Hemoglobin A1c 5.6 Calcium 8.2 L Total Bilirubin 0.3 AST 10 L ALT 11 L Alkaline Phosphatase 103 Total Protein 6.3 L Albumin 2.8 L Microbiology 02/05/18 13:50 Wound - Leg Gram Stain - Final 02/05/18 13:50 Wound - Leg Wound Culture - Preliminary 02/05/18 13:50 Wound - Leg Fungal Smear - Final No fungal elements seen 02/03/18 21:15 Wound - Leg Gram Stain - Final 02/03/18 21:15 Wound - Leg Wound Culture - Final Escherichia coli Enterococcus faecalis Assessment and Plan - Assessment (1) HTN (hypertension) Code(s): I10 - Essential (primary) hypertension Status: Acute (2) Chest pain Code(s): R07.9 - Chest pain, unspecified Status: Acute (3) CKD (chronic kidney disease) Code(s): N18.9 - Chronic kidney disease, unspecified Status: Acute (4) Leg wound, left Code(s): S81.802A - Unspecified open wound, left lower leg, initial encounter Status: Acute - Plan 47-year-old male with: HTN urgency: Uncontrolled, secondary to Non-Compliance, BP 232/139, HR 63, s/p Nifedipine 60mg PO, Metoprolol 75mg PO, Hydralazine 50mg PO, Clonidine 0.1mg PO and NTG w/ minimal improvement. -We will continue on clonidine and Procardia. Blood pressure improved. Chest Pain: Likely demand ischemia from accelerated hypertension. Serial cardiac enzymes and EKG negative. Resolved. LLE Wound: +foul-smelling wound to left lower extremity on presentation, X-ray w/ soft tissue prominence, no underlying bony abnormality, images reviewed. -Podiatry following. Dr. Zaidi. -Status post debridement. Wound care nurse for Ng/ Luz Maria rose, dressing change q-3-5 days. Awaiting tissue and micro from surgery. Continue IV ABX and medical management. Podiatry to follow in a couple of days. -Wound cultures growing E. coli and enterococcus. Ampicillin and ceftriaxone ordered per sensitivity profile. Change Ampicillin to Q8hrs given renal functions. CKD: Acute on Chronic Renal Failure, likely due to chronically uncontrolled HTN from non-compliance, no outpatient follow-up -Appreciate nephrology input. Recommends controlling blood pressure and conservative management for now. Outpatient follow-up. Noncompliance: The patient was counseled at length about the risk of stroke, heart failure, heart attack from uncontrolled hypertension and lack of medical follow-up. He voiced understanding. DVT Prophylaxis: Heparin sq Discharge Planning: Continue current treatment. May need graft per Podiatry. (2) Chest pain Qualifiers: Chest pain type: unspecified Qualified Code(s): R07.9 - Chest pain, unspecified
[2018-02-06] MEDS: Morphine Inj 4 MG/ML Vial IV.PUSH PRN ×2 (16:24→22:33)
--- NOTE | 2018-02-06 18:00 | P.PNWCN ---
Wound Care Nurse Consult Description: Received wound management consult of L ankle wound for Ng boot to be placed on patient from Doctor Gonsalves [facility] Communicated with: KYLAH Burnett and other therapeutic support staff in room Recommendation: Please leave Ng boots in place and wound care will change every 3 to 5 days Wound/Pressure Injury - Patient Status Premedicated for Pain Prior to Dressing Change: No - Wound Left Leg Wound Assessment: Ongoing Wound Type: Traumatic Wound Is This a Chronic Wound: Yes Requested from Provider a Wound Care Consult: Yes (Wound care saw patinet today) Length: 15 (~15cm) Width: 20 (~20cm) Depth: 0.1 (~0.1cm) Wound Bed Appearance: Red Surrounding Tissue Appearance: [place] Surrounding Tissue Temperature: Warm Drainage Description: Serosanguinous Drainage Amount: Moderate Dressing Status: Dry & Intact, Changed Cleansing Solution: Saline Primary Dressing: Optilock and unna boot Cover Dressing: Rolled gauze and 4 inch Coban (Unna boot with coban is a Ng boot) Tape Type: Paper Wound Dressing Change Date: 02/06/18 Wound Margin Description: Well DEfined and open - Additional Information Patient seen for wound management of L ankle fro Ng/unna boot application. Spoke with Doctor Gonsalves before applying Ng boot to patient, inquired about order for Ankle brachial index (CURT) before compression. Doctor Major did not want CURT on patient, due to good blood flow during surgery and good pedal pulses. Removed dressings in place to L lower leg to reveal wound that presents with 100% red non granulation tissue. Wound is large, but shallow.Other wound measurements and description noted above. Wound has moderate sero-sanguinous drainage. Wound was cleansed with normal saline. Three Optilock dressings were applied over open draining wound to L lower leg. Unna boot tender wrap was then applied to two finger widths below the bend of the knee. Applied rolled gauze in place to secure. Then applied Coban to further secure. Patient tolerated Ng boot application well.
--- NOTE | 2018-02-06 18:27 | P.PNNP ---
Subjective Interval history: Patient is sitting in the chair denies shortness of breath Physical Exam Vital signs: Vital Signs 02/05/18 19:00 02/05/18 20:00 02/05/18 21:00 Temperature 97.6 F Pulse Rate 70 58 L 74 Respiratory Rate 22 Blood Pressure 173/86 H Pulse Oximetry 94 L 94 L 02/05/18 22:00 02/05/18 23:00 02/06/18 00:00 Temperature 97.4 F L Pulse Rate 62 51 L 56 L Respiratory Rate 20 Blood Pressure 174/110 H Pulse Oximetry 95 02/06/18 01:00 02/06/18 02:00 02/06/18 03:00 Temperature 98.1 F Pulse Rate 58 L 56 L 57 L Respiratory Rate 20 Blood Pressure 168/99 H Pulse Oximetry 98 02/06/18 04:00 02/06/18 05:00 02/06/18 06:00 Temperature Pulse Rate 58 L 68 77 Respiratory Rate Blood Pressure Pulse Oximetry 02/06/18 07:00 02/06/18 08:00 02/06/18 09:28 Temperature 98.6 F Pulse Rate 56 L 58 L Respiratory Rate 20 Blood Pressure 187/109 H 157/104 H Pulse Oximetry 98 02/06/18 10:00 02/06/18 10:51 02/06/18 11:00 Temperature 98.3 F Pulse Rate 62 66 54 L Respiratory Rate 18 Blood Pressure 153/98 H 161/106 H Pulse Oximetry 99 02/06/18 12:00 02/06/18 13:00 02/06/18 14:00 Temperature Pulse Rate 58 L 52 L 72 Respiratory Rate Blood Pressure Pulse Oximetry 02/06/18 14:18 02/06/18 15:00 02/06/18 16:00 Temperature 97.4 F L Pulse Rate 57 L 56 L Respiratory Rate 18 Blood Pressure 158/111 H Pulse Oximetry 96 96 02/06/18 17:36 02/06/18 18:00 Temperature Pulse Rate 54 L 57 L Respiratory Rate Blood Pressure Pulse Oximetry Intake & Output 02/05/18 02/06/18 02/06/18 18:59 06:59 18:59 Intake Total 1420 / 1420 640 / 640 2160 / 2160 Output Total 400 / 400 600 / 600 640 / 640 Balance 1020 / 1020 40 / 40 1520 / 1520 Weight 141.1 kg Intake: IV 200 / 200 400 / 400 400 / 400 Ampicillin Inj 2,000 MG In NS 100 / 100 300 / 300 300 / 300 Inj 100 ML @ 400 mls/hr IV.SIG Q8H [facility] Rx#:[id number] Rocephin Inj 1,000 MG In NS Inj 100 / 100 100 / 100 100 / 100 100 ML @ 200 mls/hr IV.SIG Q12H [facility] Rx#:[id number] Oral 720 / 720 240 / 240 1760 / 1760 Anesthesia Amount 500 / 500 Output: Urine 390 / 390 600 / 600 640 / 640 Estimated Blood Loss Other: # Voids 3 Date of Last Bowel Movement 02/03/18 02/03/18 02/03/18 - Constitutional no acute distress - Routine HEENT Exam Eye: Present: EOMI - Routine Neck Exam Present: lymphadenopathy - Routine Respiratory Exam Present: CTA bilaterally - Routine Cardiovascular Exam Present: bradycardia - Routine Abdominal Exam Present: soft, normoactive bowel sounds - Routine Extremities Exam Present: edema Assessment and Plan - Assessment (1) Hypertension Code(s): I10 - Essential (primary) hypertension Status: Acute Qualifiers: Hypertension type: unspecified Qualified Code(s): I10 - Essential (primary ) hypertension (2) CKD (chronic kidney disease) Code(s): N18.9 - Chronic kidney disease, unspecified Status: Acute - Plan Controlled blood pressure is creatinine is higher patient has hypertensive crisis Add minoxidil 2.5 mg daily Continue monitor BMP Follow renal functions
[2018-02-06] MEDS: Minoxidil 2.5 MG Tablet PO SCH (19:00)
[2018-02-07 08:02] LABS: Hematocrit 35.7 % (39.0-51.0); Hemoglobin 11.7 gm/dL (13.0-17.0); Mean Corpuscular HGB Conc 32.7 % (32.0-36.0); Mean Corpuscular Volume 85.5 fL (80.0-100.0); Mean Platelet Volume 8.1 fL (7.0-11.0); Platelet Count 193 th/mm3 (150-450); Red Blood Count 4.17 mil/mm3 (4.50-5.90); Red Cell Distribution Width 17.7 % (11.6-17.2); White Blood Count 4.2 th/mm3 (4.0-11.0)
[2018-02-07 08:37] LABS: Alanine Aminotransferase 10 U/L (12-78); Albumin 2.7 g/dL (3.4-5.0); Anion Gap 7 meq/L (5-15); Aspartate Aminotransferase 10 U/L (15-37); Blood Urea Nitrogen 28 mg/dL (7-18); Calcium 8.1 mg/dL (8.5-10.1); Carbon Dioxide 25.9 meq/L (21.0-32.0); Chloride 111 meq/L (98-107); Glomerular Filtration Rate 30 mL/min (>89); Glucose,Random 91 mg/dL (74-106); Potassium 3.7 meq/L (3.5-5.1); Sodium 144 meq/L (136-145)
[2018-02-07 08:39] LABS: Alkaline Phosphatase 108 U/L (45-117); Total Protein 6.4 g/dL (6.4-8.2)
[2018-02-07] MEDS: Minoxidil 2.5 MG Tablet PO SCH ×2 (08:45→18:26)
[2018-02-07] MEDS: Senna/Docusate Sodium 8.6/50 MG Tablet PO SCH ×2 (08:45→21:50)
[2018-02-07] MEDS: Heparin - SQ 10,000 UNITS/ML Vial SQ SCH ×2 (08:45→21:50)
--- NOTE | 2018-02-07 11:17 | P.PNIM ---
Subjective Interval history: Patient reports he is feeling okay. Blood pressure still not well controlled. Physical Exam Vital signs: Vital Signs 02/06/18 12:00 02/06/18 13:00 02/06/18 14:00 Temperature Pulse Rate 58 L 52 L 72 Respiratory Rate Blood Pressure Pulse Oximetry 02/06/18 14:18 02/06/18 15:00 02/06/18 16:00 Temperature 97.4 F L Pulse Rate 57 L 56 L Respiratory Rate 18 Blood Pressure 158/111 H Pulse Oximetry 96 96 02/06/18 17:36 02/06/18 18:00 02/06/18 19:00 Temperature Pulse Rate 54 L 57 L 54 L Respiratory Rate Blood Pressure Pulse Oximetry 02/06/18 20:00 02/06/18 21:00 02/06/18 22:00 Temperature Pulse Rate 54 L 62 58 L Respiratory Rate Blood Pressure Pulse Oximetry 98 02/06/18 23:00 02/07/18 00:00 02/07/18 01:00 Temperature 97.7 F Pulse Rate 56 L 62 86 Respiratory Rate 20 Blood Pressure 176/112 H Pulse Oximetry 98 02/07/18 02:00 02/07/18 03:00 02/07/18 04:00 Temperature 97.7 F Pulse Rate 62 78 74 Respiratory Rate 20 Blood Pressure 148/96 H Pulse Oximetry 96 02/07/18 05:00 02/07/18 06:00 02/07/18 07:00 Temperature 98.2 F Pulse Rate 62 72 68 Respiratory Rate 22 Blood Pressure 151/98 H Pulse Oximetry 98 02/07/18 08:00 02/07/18 09:00 02/07/18 10:00 Temperature Pulse Rate 60 61 57 L Respiratory Rate Blood Pressure Pulse Oximetry 02/07/18 11:00 Temperature 98.4 F Pulse Rate 59 L Respiratory Rate 20 Blood Pressure 183/114 H Pulse Oximetry 99 Intake & Output 02/06/18 02/07/18 02/07/18 18:59 06:59 18:59 Intake Total 2160 / 2160 440 / 440 100 / 100 Output Total 640 / 640 500 / 500 Balance 1520 / 1520 -60 / -60 100 / 100 Weight 142 kg Intake: IV 400 / 400 200 / 200 100 / 100 Ampicillin Inj 2,000 MG In NS 300 / 300 100 / 100 100 / 100 Inj 100 ML @ 400 mls/hr IV.SIG Q8H [facility] Rx#:[id number] Rocephin Inj 1,000 MG In NS Inj 100 / 100 100 / 100 100 ML @ 200 mls/hr IV.SIG Q12H [facility] Rx#:[id number] Oral 1760 / 1760 240 / 240 Output: Urine 640 / 640 500 / 500 Other: Date of Last Bowel Movement 02/03/18 02/03/18 02/03/18 Narrative: GENERAL: Obese male, in no apparent distress. CARDIOVASCULAR: Normal rate and regular rhythm without murmurs, gallops, or rubs. RESPIRATORY: Good respiratory efforts. Breath sounds equal and clear to auscultation bilaterally. GASTROINTESTINAL: Abdomen soft, non-tender, non-distended. Normal active bowel sounds MUSCULOSKELETAL: Left lower extremity has intact dressing. NEURO: Alert & Oriented x4 to person, place, time, situation. Moves all ext x4 PSYCH: Appropriate mood and affect. Results - Labs CBC & Chem 7: 02/07/18 06:42 02/07/18 06:42 Laboratory Results - last 24 hr 02/07/18 02/07/18 06:42 06:42 WBC 4.2 RBC 4.17 L Hgb 11.7 L Hct 35.7 L MCV 85.5 MCH 28.0 MCHC 32.7 RDW 17.7 H Plt Count 193 MPV 8.1 Sodium 144 Potassium 3.7 Chloride 111 H Carbon Dioxide 25.9 Anion Gap 7 BUN 28 H Creatinine 2.71 H Estimated GFR 30 L Random Glucose 91 Calcium 8.1 L Total Bilirubin 0.2 AST 10 L ALT 10 L Alkaline Phosphatase 108 Total Protein 6.4 Albumin 2.7 L Microbiology 02/05/18 13:50 Wound - Leg Gram Stain - Final 02/05/18 13:50 Wound - Leg Wound Culture - Preliminary Enterococcus faecalis gram negative rods 02/05/18 13:50 Wound - Leg Acid Fast Bacilli Smear - Final No acid fast bacilli seen 02/05/18 13:50 Wound - Leg Fungal Smear - Final No fungal elements seen Assessment and Plan - Assessment (1) HTN (hypertension) Code(s): I10 - Essential (primary) hypertension Status: Acute (2) Chest pain Code(s): R07.9 - Chest pain, unspecified Status: Acute (3) CKD (chronic kidney disease) Code(s): N18.9 - Chronic kidney disease, unspecified Status: Acute (4) Leg wound, left Code(s): S81.802A - Unspecified open wound, left lower leg, initial encounter Status: Acute - Plan 47-year-old male with: HTN urgency: Uncontrolled, secondary to Non-Compliance, BP 232/139, HR 63, s/p Nifedipine 60mg PO, Metoprolol 75mg PO, Hydralazine 50mg PO, Clonidine 0.1mg PO and NTG w/ minimal improvement. -We will continue on clonidine and Procardia. Blood pressure still labile. -Minoxidil was added per nephrology. Clonidine as needed. Chest Pain: Likely demand ischemia from accelerated hypertension. Serial cardiac enzymes and EKG negative. Resolved. LLE Wound: +foul-smelling wound to left lower extremity on presentation, X-ray w/ soft tissue prominence, no underlying bony abnormality, images reviewed. -Podiatry following. Dr. Zaidi. -Status post debridement. Wound care nurse for Ng/ Luz Maria rose, dressing change q-3-5 days. Awaiting tissue and micro from surgery. Continue IV ABX and medical management. Podiatry to follow in a couple of days. -Wound cultures growing E. coli and enterococcus. Ampicillin and ceftriaxone ordered per sensitivity profile. Change Ampicillin to Q8hrs given renal functions. -Podiatry planning for repeat debridement tomorrow and wound graft. CKD: Acute on Chronic Renal Failure, likely due to chronically uncontrolled HTN from non-compliance, no outpatient follow-up -Appreciate nephrology input. Recommends controlling blood pressure and conservative management for now. Outpatient follow-up. Noncompliance: The patient was counseled at length about the risk of stroke, heart failure, heart attack from uncontrolled hypertension and lack of medical follow-up. He voiced understanding. DVT Prophylaxis: Heparin sq Discharge Planning: Continue current treatment. Repeat debridement and graft per podiatry tomorrow. (2) Chest pain Qualifiers: Chest pain type: unspecified Qualified Code(s): R07.9 - Chest pain, unspecified
--- NOTE | 2018-02-07 15:29 | P.PNPOD ---
Subjective Interval history: Doing well minimal pain Physical Exam Vital signs: Vital Signs 02/06/18 16:00 02/06/18 17:36 02/06/18 18:00 Temperature Pulse Rate 56 L 54 L 57 L Respiratory Rate Blood Pressure Pulse Oximetry 02/06/18 19:00 02/06/18 20:00 02/06/18 21:00 Temperature Pulse Rate 54 L 54 L 62 Respiratory Rate Blood Pressure Pulse Oximetry 98 02/06/18 22:00 02/06/18 23:00 02/07/18 00:00 Temperature 97.7 F Pulse Rate 58 L 56 L 62 Respiratory Rate 20 Blood Pressure 176/112 H Pulse Oximetry 98 02/07/18 01:00 02/07/18 02:00 02/07/18 03:00 Temperature 97.7 F Pulse Rate 86 62 78 Respiratory Rate 20 Blood Pressure 148/96 H Pulse Oximetry 96 02/07/18 04:00 02/07/18 05:00 02/07/18 06:00 Temperature Pulse Rate 74 62 72 Respiratory Rate Blood Pressure Pulse Oximetry 02/07/18 07:00 02/07/18 08:00 02/07/18 09:00 Temperature 98.2 F Pulse Rate 68 60 61 Respiratory Rate 22 Blood Pressure 151/98 H Pulse Oximetry 98 02/07/18 10:00 02/07/18 11:00 02/07/18 11:56 Temperature 98.4 F Pulse Rate 57 L 59 L Respiratory Rate 20 Blood Pressure 183/114 H 181/125 H Pulse Oximetry 99 02/07/18 12:00 02/07/18 13:00 02/07/18 14:00 Temperature Pulse Rate 55 L 65 57 L Respiratory Rate Blood Pressure 161/92 H Pulse Oximetry Intake & Output 02/06/18 02/07/18 02/07/18 18:59 06:59 18:59 Intake Total 2160 / 2160 440 / 440 100 / 100 Output Total 640 / 640 500 / 500 Balance 1520 / 1520 -60 / -60 100 / 100 Weight 142 kg Intake: IV 400 / 400 200 / 200 100 / 100 Ampicillin Inj 2,000 MG In NS 300 / 300 100 / 100 100 / 100 Inj 100 ML @ 400 mls/hr IV.SIG Q8H [facility] Rx#:[id number] Rocephin Inj 1,000 MG In NS Inj 100 / 100 100 / 100 100 ML @ 200 mls/hr IV.SIG Q12H [facility] Rx#:[id number] Oral 1760 / 1760 240 / 240 Output: Urine 640 / 640 500 / 500 Other: Date of Last Bowel Movement 02/03/18 02/03/18 02/03/18 Narrative: Left LE: Unna boot intact good ROM of digits good CFT no strike through Medications and Allergies Active Medications: Active Medications Acetaminophen (Tylenol) 650 mg PO Q4H PRN PRN Reason: Temp > 100.4 Al Hydroxide/Mg Hydroxide (Milk Of Jasbir Arechiga) 30 ml PO Q12H PRN PRN Reason: Mild Constipation Aspirin (Ecotrin) 325 mg PO DAILY [facility] Last Admin: 02/07/18 08:45 Dose: 325 mg Bisacodyl (Dulcolax Supp) 10 mg RECTAL DAILY PRN PRN Reason: SEVERE CONSITIPATION Chlorhexidine Gluconate (Chlorhexidine 2% Cloth) 3 pack TOPICAL DOCTOR OF NURSE ANESTHESIA [facility] Stop: 02/08/18 00:47 Clonidine HCl (Catapres) 0.2 mg PO Q12HR [facility] Last Admin: 02/07/18 08:45 Dose: 0.2 mg Clonidine HCl (Catapres) 0.1 mg PO Q6H PRN PRN Reason: SEE LABEL COMMENTS Last Admin: 02/07/18 15:11 Dose: 0.1 mg Heparin Sodium (Porcine) (Heparin Inj) 5,000 units SQ Q12H [facility] Last Admin: 02/07/18 08:45 Dose: 5,000 units Lactated Ringer's (Lr 1000 Ml Inj) 1,000 mls @ 30 mls/hr IV.SIG .Q24H [facility] Stop: 02/08/18 00:47 Last Admin: 02/07/18 04:33 Dose: Not Given Sodium Chloride (Ns Inj) 500 mls @ 30 mls/hr IV.SIG .Q10H [facility] Stop: 02/08/18 00:47 Ceftriaxone Sodium 1,000 mg/ (Sodium Chloride) 100 mls @ 200 mls/hr IV.SIG Q12H [facility] Last Infusion: 02/07/18 06:03 Dose: Infused Ampicillin Sodium 2,000 mg/ (Sodium Chloride) 100 mls @ 400 mls/hr IV.SIG Q8H [facility] Last Infusion: 02/07/18 10:32 Dose: Infused Lactulose (Lactulose Liq) 30 ml PO DAILY PRN PRN Reason: SEVERE CONSITIPATION Metoprolol Tartrate (Lopressor) 25 mg PO DOCTOR OF NURSE ANESTHESIA [facility] Stop: 02/08/18 00:47 Last Admin: 02/05/18 06:29 Dose: 25 mg Minoxidil (Loniten) 2.5 mg PO DAILY [facility] Last Admin: 02/07/18 08:45 Dose: 2.5 mg Morphine Sulfate (Morphine Inj) 2 mg IV.PUSH Q4H PRN PRN Reason: PAIN 6-10 Last Admin: 02/06/18 22:33 Dose: 2 mg Nifedipine (Procardia Xl) 60 mg PO DAILY [facility] Last Admin: 02/07/18 08:45 Dose: 60 mg Nitroglycerin (Nitro-Bid 2% Oint) 0.5 inch TOPICAL Q6HR PRN PRN Reason: CHEST PAIN Ondansetron HCl (Zofran Inj) 4 mg IV.PUSH Q6H PRN PRN Reason: NAUSEA OR VOMITING Povidone Iodine (Betadine 5% Antisepsis Kit) 1 applicatio EACH NARE DOCTOR OF NURSE ANESTHESIA [facility] Stop: 02/08/18 00:47 Pravastatin Sodium (Pravachol) 40 mg PO DAILY [facility] Last Admin: 02/07/18 08:45 Dose: 40 mg Senna/Docusate Sodium (Alyssa-Colace) 1 tab PO BID [facility] Last Admin: 02/07/18 08:45 Dose: 1 tab Sennosides (Senokot) 17.2 mg PO Q12H PRN PRN Reason: Moderate Constipation Sodium Chloride (Ns Flush) 2 ml IV.FLUSH UNSCH PRN PRN Reason: FLUSH AFTER USING IV ACCESS Last Admin: 02/06/18 22:34 Dose: 2 ml Temazepam (Restoril) 15 mg PO HS PRN PRN Reason: INSOMNIA Allergies Allergy/AdvReac Type Severity Reaction Status Date / Time nka Allergy Unknown Uncoded 02/26/03 01:23 No Known Allergies Allergy Unknown Uncoded 10/07/17 22:56 Home Medications Medication Instructions Recorded Confirmed Type Additional Bp Meds 02/03/18 History clonidine HCl 0.1 mg PO BID 02/03/18 02/03/18 History furosemide 20 mg PO BID 02/03/18 02/03/18 History Results - Labs CBC & Chem 7: 02/07/18 06:42 02/07/18 06:42 Laboratory Results - last 24 hr 02/07/18 02/07/18 06:42 06:42 WBC 4.2 RBC 4.17 L Hgb 11.7 L Hct 35.7 L MCV 85.5 MCH 28.0 MCHC 32.7 RDW 17.7 H Plt Count 193 MPV 8.1 Sodium 144 Potassium 3.7 Chloride 111 H Carbon Dioxide 25.9 Anion Gap 7 BUN 28 H Creatinine 2.71 H Estimated GFR 30 L Random Glucose 91 Calcium 8.1 L Total Bilirubin 0.2 AST 10 L ALT 10 L Alkaline Phosphatase 108 Total Protein 6.4 Albumin 2.7 L Microbiology 02/05/18 13:50 Wound - Leg Gram Stain - Final 02/05/18 13:50 Wound - Leg Wound Culture - Preliminary Enterococcus faecalis gram negative rods 02/05/18 13:50 Wound - Leg Acid Fast Bacilli Smear - Final No acid fast bacilli seen 02/05/18 13:50 Wound - Leg Fungal Smear - Final No fungal elements seen Assessment and Plan - Assessment (1) Ulcer of left lower extremity Code(s): L97.929 - Non-pressure chronic ulcer of unspecified part of left lower leg with unspecified severity Status: Acute (2) Venous stasis of lower extremity Code(s): I87.8 - Other specified disorders of veins Status: Acute - Plan Reviewed case with Dr Zaidi, requested repeat debridement with application of artificial skin graft given the size of the wounds, plan for OR tomorrow..
--- NOTE | 2018-02-07 18:14 | P.PNNP ---
Subjective Interval history: Patient treated for wound infection Physical Exam Vital signs: Vital Signs 02/06/18 19:00 02/06/18 20:00 02/06/18 21:00 Temperature Pulse Rate 54 L 54 L 62 Respiratory Rate Blood Pressure Pulse Oximetry 98 02/06/18 22:00 02/06/18 23:00 02/07/18 00:00 Temperature 97.7 F Pulse Rate 58 L 56 L 62 Respiratory Rate 20 Blood Pressure 176/112 H Pulse Oximetry 98 02/07/18 01:00 02/07/18 02:00 02/07/18 03:00 Temperature 97.7 F Pulse Rate 86 62 78 Respiratory Rate 20 Blood Pressure 148/96 H Pulse Oximetry 96 02/07/18 04:00 02/07/18 05:00 02/07/18 06:00 Temperature Pulse Rate 74 62 72 Respiratory Rate Blood Pressure Pulse Oximetry 02/07/18 07:00 02/07/18 08:00 02/07/18 09:00 Temperature 98.2 F Pulse Rate 68 60 61 Respiratory Rate 22 Blood Pressure 151/98 H Pulse Oximetry 98 02/07/18 10:00 02/07/18 11:00 02/07/18 11:56 Temperature 98.4 F Pulse Rate 57 L 59 L Respiratory Rate 20 Blood Pressure 183/114 H 181/125 H Pulse Oximetry 99 02/07/18 12:00 02/07/18 13:00 02/07/18 14:00 Temperature Pulse Rate 55 L 65 57 L Respiratory Rate Blood Pressure 161/92 H Pulse Oximetry 02/07/18 15:00 02/07/18 16:00 02/07/18 17:10 Temperature 97.9 F Pulse Rate 58 L 64 Respiratory Rate 18 Blood Pressure 181/120 H Pulse Oximetry 97 97 Intake & Output 02/06/18 02/07/18 02/07/18 18:59 06:59 18:59 Intake Total 2160 / 2160 440 / 440 1960 / 1960 Output Total 640 / 640 500 / 500 725 / 725 Balance 1520 / 1520 -60 / -60 1235 / 1235 Weight 142 kg Intake: IV 400 / 400 200 / 200 200 / 200 Ampicillin Inj 2,000 MG In NS 300 / 300 100 / 100 100 / 100 Inj 100 ML @ 400 mls/hr IV.SIG Q8H [facility] Rx#:[id number] Rocephin Inj 1,000 MG In NS Inj 100 / 100 100 / 100 100 / 100 100 ML @ 200 mls/hr IV.SIG Q12H [facility] Rx#:[id number] Oral 1760 / 1760 240 / 240 1760 / 1760 Output: Urine 640 / 640 500 / 500 725 / 725 Other: Date of Last Bowel Movement 02/03/18 02/03/18 02/03/18 - Constitutional no acute distress - Routine HEENT Exam Eye: Present: EOMI - Routine Neck Exam Present: supple - Routine Respiratory Exam Present: CTA bilaterally - Routine Cardiovascular Exam Present: RRR - Routine Abdominal Exam Present: soft - Routine Extremities Exam Present: edema Assessment and Plan - Assessment (1) Hypertension Code(s): I10 - Essential (primary) hypertension Status: Acute Qualifiers: Hypertension type: unspecified Qualified Code(s): I10 - Essential (primary ) hypertension (2) CKD (chronic kidney disease) Code(s): N18.9 - Chronic kidney disease, unspecified Status: Acute - Plan Control his blood pressure has hypertensive crisis Increase minoxidil 5 mg to twice daily Continue monitor BMP Follow renal functions Cr better
[2018-02-08] MEDS ORDERED: hydrALAZINE 50 MG Tablet PO ONE (03:11)
[2018-02-08] MEDS ORDERED: Sodium Chlor 0.9% Inj 500 ML IV.SIG SCH (07:00)
[2018-02-08] MEDS ORDERED: Metoprolol Tartrate 25 MG Tablet PO SCH (07:00)
[2018-02-08] MEDS ORDERED: Chlorhexidine Gluconate 2% 1 Pack (2 Cloths) TOPICAL SCH (07:00)
--- NOTE | 2018-02-08 08:12 | P.PNIM ---
Subjective Interval history: f/u; hypertension/ LLE wound in no acute distress. denies pain and with no fever. awaiting surgery today. Physical Exam Vital signs: Vital Signs 02/07/18 09:00 02/07/18 10:00 02/07/18 11:00 Temperature 98.4 F Pulse Rate 61 57 L 59 L Respiratory Rate 20 Blood Pressure 183/114 H Pulse Oximetry 99 02/07/18 11:56 02/07/18 12:00 02/07/18 13:00 Temperature Pulse Rate 55 L 65 Respiratory Rate Blood Pressure 181/125 H 161/92 H Pulse Oximetry 02/07/18 14:00 02/07/18 15:00 02/07/18 16:00 Temperature 97.9 F Pulse Rate 57 L 58 L 64 Respiratory Rate 18 Blood Pressure 181/120 H Pulse Oximetry 97 02/07/18 17:00 02/07/18 17:10 02/07/18 18:00 Temperature Pulse Rate 58 L 62 Respiratory Rate Blood Pressure Pulse Oximetry 97 02/07/18 20:00 02/07/18 21:55 02/08/18 00:00 Temperature 97.7 F Pulse Rate 59 L 70 64 Respiratory Rate 18 Blood Pressure 188/107 H Pulse Oximetry 97 02/08/18 04:00 Temperature 97.3 F L Pulse Rate 67 Respiratory Rate 18 Blood Pressure 169/93 H Pulse Oximetry 98 Intake & Output 02/07/18 02/08/18 02/08/18 18:59 06:59 18:59 Intake Total 2060 / 2060 200 / 200 Output Total 725 / 725 Balance 1335 / 1335 200 / 200 Weight 143.7 kg Intake: IV 300 / 300 200 / 200 Ampicillin Inj 2,000 MG In NS 200 / 200 100 / 100 Inj 100 ML @ 400 mls/hr IV.SIG Q8H [facility] Rx#:[id number] Rocephin Inj 1,000 MG In NS Inj 100 / 100 100 / 100 100 ML @ 200 mls/hr IV.SIG Q12H [facility] Rx#:[id number] Oral 1760 / 1760 Output: Urine 725 / 725 Other: Date of Last Bowel Movement 02/03/18 02/07/18 - Constitutional no acute distress - Routine Respiratory Exam Present: CTA bilaterally - Routine Cardiovascular Exam Present: RRR - Routine Abdominal Exam Present: soft - Routine Extremities Exam Comments: left lower extremity covered with clean dressing. - Routine Neurological Exam Present: alert, oriented X3 Results - Labs CBC & Chem 7: 02/07/18 06:42 02/07/18 06:42 Laboratory Results - last 24 hr 02/07/18 06:42 Sodium 144 Potassium 3.7 Chloride 111 H Carbon Dioxide 25.9 Anion Gap 7 BUN 28 H Creatinine 2.71 H Estimated GFR 30 L Random Glucose 91 Calcium 8.1 L Total Bilirubin 0.2 AST 10 L ALT 10 L Alkaline Phosphatase 108 Total Protein 6.4 Albumin 2.7 L Microbiology 02/05/18 13:50 Wound - Leg Gram Stain - Final 02/05/18 13:50 Wound - Leg Wound Culture - Preliminary Enterococcus faecalis gram negative rods Assessment and Plan - Assessment (1) HTN (hypertension) Code(s): I10 - Essential (primary) hypertension Status: Acute (2) Chest pain Code(s): R07.9 - Chest pain, unspecified Status: Acute (3) CKD (chronic kidney disease) Code(s): N18.9 - Chronic kidney disease, unspecified Status: Acute (4) Leg wound, left Code(s): S81.802A - Unspecified open wound, left lower leg, initial encounter Status: Acute - Plan HTN urgency: Uncontrolled, secondary to Non-Compliance -We will continue on clonidine and Procardia. Blood pressure still labile. -Minoxidil was added per nephrology. Clonidine as needed. Chest Pain: Likely demand ischemia from accelerated hypertension. Serial cardiac enzymes and EKG negative. Resolved. LLE Wound: +foul-smelling wound to left lower extremity on presentation, X-ray w/ soft tissue prominence, no underlying bony abnormality, images reviewed. -Podiatry following. Dr. Zaidi. -Status post debridement. Wound care nurse for Hernandez/ Luz Maria rose, dressing change q-3-5 days. Awaiting tissue and micro from surgery. Continue IV ABX and medical management. -Wound cultures growing E. coli and enterococcus. Ampicillin and ceftriaxone ordered per sensitivity profile. Change Ampicillin to Q8hrs given renal functions. -Podiatry planning for repeat debridement and wound graft today. CKD: Acute on Chronic Renal Failure, likely due to chronically uncontrolled HTN from non-compliance, no outpatient follow-up -Appreciate nephrology input. Recommends controlling blood pressure and conservative management for now. Outpatient follow-up. Noncompliance: The patient was counseled at length about the risk of stroke, heart failure, heart attack from uncontrolled hypertension and lack of medical follow-up. He voiced understanding. DVT Prophylaxis: Heparin sq Discharge Planning: for LLE debridement and graft placement today. (2) Chest pain Qualifiers: Chest pain type: unspecified Qualified Code(s): R07.9 - Chest pain, unspecified
[2018-02-08] MEDS: Heparin - SQ 10,000 UNITS/ML Vial SQ SCH ×2 (08:17→23:07)
[2018-02-08 08:18] LABS: Hematocrit 33.7 % (39.0-51.0); Hemoglobin 11.4 gm/dL (13.0-17.0); Mean Corpuscular HGB Conc 33.9 % (32.0-36.0); Mean Corpuscular Hemoglobin 28.2 pg (27.0-34.0); Mean Corpuscular Volume 83.4 fL (80.0-100.0); Mean Platelet Volume 8.1 fL (7.0-11.0); Platelet Count 214 th/mm3 (150-450); Red Blood Count 4.04 mil/mm3 (4.50-5.90); Red Cell Distribution Width 17.3 % (11.6-17.2); White Blood Count 3.8 th/mm3 (4.0-11.0)
[2018-02-08] MEDS: Senna/Docusate Sodium 8.6/50 MG Tablet PO SCH ×2 (08:19→23:07)
[2018-02-08 08:42] LABS: Alanine Aminotransferase 7 U/L (12-78); Albumin 2.7 g/dL (3.4-5.0); Anion Gap 7 meq/L (5-15); Aspartate Aminotransferase 9 U/L (15-37); Blood Urea Nitrogen 25 mg/dL (7-18); Calcium 8.2 mg/dL (8.5-10.1); Carbon Dioxide 26.8 meq/L (21.0-32.0); Chloride 109 meq/L (98-107); Glomerular Filtration Rate 32 mL/min (>89); Glucose,Random 99 mg/dL (74-106); Potassium 3.7 meq/L (3.5-5.1); Sodium 143 meq/L (136-145)
[2018-02-08 08:43] LABS: Alkaline Phosphatase 106 U/L (45-117); Total Protein 6.4 g/dL (6.4-8.2)
[2018-02-08] MEDS: Minoxidil 2.5 MG Tablet PO SCH (09:14)
[2018-02-08] MEDS ORDERED: Minoxidil 2.5 MG Tablet PO SCH (13:58)
--- NOTE | 2018-02-08 14:00 | P.PNNP ---
Subjective Interval history: Patient is doing okay wound care per podiatry Physical Exam Vital signs: Vital Signs 02/07/18 14:00 02/07/18 15:00 02/07/18 16:00 Temperature 97.9 F Pulse Rate 57 L 58 L 64 Respiratory Rate 18 Blood Pressure 181/120 H Pulse Oximetry 97 02/07/18 17:00 02/07/18 17:10 02/07/18 18:00 Temperature Pulse Rate 58 L 62 Respiratory Rate Blood Pressure Pulse Oximetry 97 02/07/18 20:00 02/07/18 21:55 02/08/18 00:00 Temperature 97.7 F Pulse Rate 59 L 70 64 Respiratory Rate 18 Blood Pressure 188/107 H Pulse Oximetry 97 02/08/18 04:00 02/08/18 08:00 02/08/18 08:20 Temperature 97.3 F L 97.8 F Pulse Rate 67 78 Respiratory Rate 18 17 Blood Pressure 169/93 H 117/109 H Pulse Oximetry 98 98 98 Intake & Output 02/07/18 02/08/18 02/08/18 18:59 06:59 18:59 Intake Total 2060 / 2060 200 / 200 100 / 100 Output Total 725 / 725 Balance 1335 / 1335 200 / 200 100 / 100 Weight 143.7 kg Intake: IV 300 / 300 200 / 200 100 / 100 Ampicillin Inj 2,000 MG In NS 200 / 200 100 / 100 100 / 100 Inj 100 ML @ 400 mls/hr IV.SIG Q8H [facility] Rx#:[id number] Rocephin Inj 1,000 MG In NS Inj 100 / 100 100 / 100 100 ML @ 200 mls/hr IV.SIG Q12H [facility] Rx#:[id number] Oral 1760 / 1760 Output: Urine 725 / 725 Other: Date of Last Bowel Movement 02/03/18 02/07/18 - Constitutional no acute distress - Routine HEENT Exam Eye: Present: EOMI - Routine Neck Exam Present: supple - Routine Respiratory Exam Present: CTA bilaterally - Routine Cardiovascular Exam Present: RRR - Routine Abdominal Exam Present: soft, normoactive bowel sounds - Routine Extremities Exam Present: edema Assessment and Plan - Assessment (1) Hypertension Code(s): I10 - Essential (primary) hypertension Status: Acute Qualifiers: Hypertension type: unspecified Qualified Code(s): I10 - Essential (primary ) hypertension (2) CKD (chronic kidney disease) Code(s): N18.9 - Chronic kidney disease, unspecified Status: Acute - Plan Control his blood pressure has hypertensive crisis Increase minoxidil 10 mg to twice daily Continue monitor BMP Follow renal functions Cr better
[2018-02-08] MEDS ORDERED: Succinylcholine Inj 100 MG/5 ML Syringe IV.PUSH ONE (16:28)
[2018-02-08] MEDS ORDERED: Lidocaine PF 1% Inj 5 ML Syringe INFILTRATN ONE (16:28)
[2018-02-08] MEDS ORDERED: Glycopyrrolate Inj 1 MG/5 ML Syringe IV.PUSH ONE (16:28)
--- NOTE | 2018-02-08 22:52 | P.BOP ---
- Preoperative Diagnosis (1) Ulcer of left lower extremity (2) Venous stasis of lower extremity - Postoperative Diagnosis (1) Ulcer of left lower extremity (2) Venous stasis of lower extremity Date of procedure: 02/08/18 Procedure: Left ankle wound debridement application of skin,Amniox graft x3 Implants: AMNIOX graft Surgeon: Herminio Cheng DPM Estimated blood loss (mL): 10 (mL) Tourniquet time (min): 0 Pathology: none sent Condition: stable Disposition: floor
[2018-02-08] MEDS ORDERED: Morphine Inj 4 MG/ML Vial ONE (22:54)
[2018-02-08] MEDS ORDERED: fentaNYL Citrate Inj 100 MCG/2 ML Ampul ONE (22:54)
[2018-02-08] MEDS: Minoxidil 10 MG Tablet PO SCH (23:07)
--- NOTE | 2018-02-09 07:51 | MP ---
cc: Herminio Gonsalves DPM DATE OF OPERATION: 02/08/2018 PREOPERATIVE DIAGNOSES: Expansile left lower extremity distal leg ankle ulcer. Venous stasis dermatitis and venous stasis ulceration. POSTOPERATIVE DIAGNOSES: Expansile left lower extremity distal leg ankle ulcer. Venous stasis dermatitis and venous stasis ulceration. PROCEDURE PERFORMED: Sharp excisional thickness debridement with application of Amniox graft. COMPLICATIONS: None. ESTIMATED BLOOD LOSS: Less than 10 mL ANESTHESIA: General. SPECIMENS: None. DISPOSITION: Return to floor for careful wound evaluation. Daily bandage changes need to take place to make sure the graft change is adequately monitored. Of note, Adaptic needs to stay intact for at least 7-10 days. The outer bandage can be changed daily. This will likely be done with only a member of the podiatry team. JUSTIFICATION FOR PROCEDURE: This is a 47-year-old male with chronic history of lower extremity wounds. He has been treated by my associate, Dr. Zaidi. There has been some improvement with graft. We are attempting to close these large expansile wounds to prevent limb loss and sepsis. No guarantees given or implied regarding the outcome. PROCEDURE IN DETAIL: Under mild sedation, the patient was brought to the operating room, placed on the operating table in supine position. Following the induction of general anesthesia, the left lower extremity was scrubbed, prepped, and draped in the usual aseptic fashion. The wound was examined. There was noted to be mainly granular tissue with minimal fibrotic edges. Wound measurements: It was a large expansile ulceration which had a small central island in the posterior aspect of the ankle. The medial wound measurements were 14 cm, the lateral wound measurements were 13 cm. The circumferential width was 14 cm, and there was a small pretibial ulcer measuring approximately 3.2 x 3 cm. All the wounds ranged in 1-3 mm in thickness. There was no obvious bone exposure or tendon exposure. Upon curettage and sharp debridement, there was viable bleeding tissue. Amniox umbilical cord graft was then sectioned and spread out diffusely across the wound and sutured in place utilizing Prolene. Adaptic was then placed over the wounds serving as a wet-to-dry bandage. A compressive Kwan wrap from the calf down to the foot was applied. The patient tolerated anesthesia and procedure well. Bandage will be changed in the next 24 hours. It should be kept in place and undisturbed. We will advise pending the rounding and the progress of the wound. However, I do think the patient needs to be monitored for a minimum of 2-3 days and will need excellent home health care to be certain the graft takes. MIKALA Sevilla/stan , 10:52 PM , 10:59 PM
[2018-02-09] MEDS: Heparin - SQ 10,000 UNITS/ML Vial SQ SCH ×2 (09:49→21:35)
[2018-02-09] MEDS: Senna/Docusate Sodium 8.6/50 MG Tablet PO SCH ×2 (09:51→21:35)
[2018-02-09] MEDS: Minoxidil 10 MG Tablet PO SCH ×2 (09:52→21:35)
--- NOTE | 2018-02-09 10:52 | P.PNIM ---
Subjective Interval history: f/u; left leg wound in no acute distress. pain is controlled. no new complaints. d/q the RN and no acute issues over night. Physical Exam Vital signs: Vital Signs 02/08/18 12:00 02/08/18 16:00 02/08/18 17:48 Temperature 97.9 F 98.0 F Pulse Rate 60 60 Respiratory Rate 18 16 Blood Pressure 118/72 118/80 Pulse Oximetry 98 98 98 02/08/18 18:30 02/08/18 18:40 02/08/18 19:00 Temperature 98.4 F Pulse Rate 74 74 72 Respiratory Rate 24 24 22 Blood Pressure 215/107 H 179/86 H 185/113 H Pulse Oximetry 95 95 95 02/08/18 22:45 02/08/18 23:00 02/09/18 00:00 Temperature 98.1 F 98.0 F 98.1 F Pulse Rate 102 H 99 H 96 H Respiratory Rate 14 16 20 Blood Pressure 146/94 H 146/88 H 169/85 H Pulse Oximetry 99 99 98 02/09/18 04:00 02/09/18 08:00 Temperature 97.9 F 97.7 F Pulse Rate 80 71 Respiratory Rate 20 18 Blood Pressure 140/72 132/71 Pulse Oximetry 96 99 Intake & Output 02/08/18 02/09/18 02/09/18 18:59 06:59 18:59 Intake Total 300 / 300 1140 / 1140 Output Total 1999 405 / 405 Balance -1700 / -1700 735 / 735 Weight 145.3 kg Intake: IV 300 / 300 200 / 200 Ampicillin Inj 2,000 MG In NS 200 / 200 100 / 100 Inj 100 ML @ 400 mls/hr IV.SIG Q8H [facility] Rx#:[id number] Rocephin Inj 1,000 MG In NS Inj 100 / 100 100 / 100 100 ML @ 200 mls/hr IV.SIG Q12H [facility] Rx#:[id number] Oral 0 / 0 Oral Supplement 240 / 240 Anesthesia Amount 700 / 700 Output: Urine 1999 400 / 400 Estimated Blood Loss 5 / 5 Other: Date of Last Bowel Movement 02/07/18 # Bowel Movements 1 0 - Constitutional no acute distress - Routine Respiratory Exam Present: CTA bilaterally - Routine Cardiovascular Exam Present: RRR - Routine Abdominal Exam Present: soft - Routine Extremities Exam Comments: left leg covered with clean dressing. - Routine Neurological Exam Present: alert, oriented X3 Results - Labs CBC & Chem 7: 02/08/18 07:38 02/08/18 07:38 Microbiology 02/05/18 13:50 Wound - Leg Gram Stain - Final 02/05/18 13:50 Wound - Leg Wound Culture - Final Enterococcus faecalis Escherichia coli - Procedures debridement of the left leg wound/ skin graft placement. Assessment and Plan - Assessment (1) HTN (hypertension) Code(s): I10 - Essential (primary) hypertension Status: Acute (2) Chest pain Code(s): R07.9 - Chest pain, unspecified Status: Acute (3) CKD (chronic kidney disease) Code(s): N18.9 - Chronic kidney disease, unspecified Status: Acute (4) Leg wound, left Code(s): S81.802A - Unspecified open wound, left lower leg, initial encounter Status: Acute - Plan HTN urgency: Uncontrolled, secondary to Non-Compliance -We will continue on clonidine and Procardia. Blood pressure overall improved. -Minoxidil was added per nephrology. Clonidine as needed. Chest Pain: Likely demand ischemia from accelerated hypertension. Serial cardiac enzymes and EKG negative. Resolved. LLE Wound: +foul-smelling wound to left lower extremity on presentation, X-ray w/ soft tissue prominence, no underlying bony abnormality, images reviewed. -Podiatry following. Dr. Zaidi. -Status post debridement and skin graft placement. - Continue IV ABX and medical management. -Wound cultures growing E. coli and enterococcus. Ampicillin and ceftriaxone ordered per sensitivity profile. Change Ampicillin to Q8hrs given renal functions. CKD: Acute on Chronic Renal Failure, likely due to chronically uncontrolled HTN from non-compliance, no outpatient follow-up -Appreciate nephrology input. Recommends controlling blood pressure and conservative management for now. Outpatient follow-up. Noncompliance: The patient was counseled at length about the risk of stroke, heart failure, heart attack from uncontrolled hypertension and lack of medical follow-up. He voiced understanding. DVT Prophylaxis: Heparin sq Discharge Planning: when cleared by podiatry. (2) Chest pain Qualifiers: Chest pain type: unspecified Qualified Code(s): R07.9 - Chest pain, unspecified
[2018-02-09 11:02] LABS: Hemoglobin 10.9 gm/dL (13.0-17.0); Mean Corpuscular HGB Conc 33.1 % (32.0-36.0); Mean Corpuscular Hemoglobin 28.5 pg (27.0-34.0); Mean Corpuscular Volume 86.3 fL (80.0-100.0); Mean Platelet Volume 8.4 fL (7.0-11.0); Platelet Count 211 th/mm3 (150-450); Red Blood Count 3.83 mil/mm3 (4.50-5.90); Red Cell Distribution Width 17.2 % (11.6-17.2); White Blood Count 5.5 th/mm3 (4.0-11.0)
[2018-02-09 11:32] LABS: Albumin 2.7 g/dL (3.4-5.0); Anion Gap 11 meq/L (5-15); Aspartate Aminotransferase 8 U/L (15-37); Blood Urea Nitrogen 29 mg/dL (7-18); Calcium 8.2 mg/dL (8.5-10.1); Carbon Dioxide 23.9 meq/L (21.0-32.0); Chloride 107 meq/L (98-107); Glomerular Filtration Rate 27 mL/min (>89); Glucose,Random 143 mg/dL (74-106); Potassium 4.2 meq/L (3.5-5.1); Sodium 142 meq/L (136-145)
[2018-02-09 12:16] LABS: Alanine Aminotransferase 7 U/L (12-78); Alkaline Phosphatase 102 U/L (45-117); Total Protein 6.7 g/dL (6.4-8.2)
--- NOTE | 2018-02-09 17:47 | P.PNNP ---
Subjective Interval history: Feels okay Physical Exam Vital signs: Vital Signs 02/08/18 17:48 02/08/18 18:30 02/08/18 18:40 Temperature 98.4 F Pulse Rate 74 74 Respiratory Rate 24 24 Blood Pressure 215/107 H 179/86 H Pulse Oximetry 98 95 95 02/08/18 19:00 02/08/18 22:45 02/08/18 23:00 Temperature 98.1 F 98.0 F Pulse Rate 72 102 H 99 H Respiratory Rate 22 14 16 Blood Pressure 185/113 H 146/94 H 146/88 H Pulse Oximetry 95 99 99 02/09/18 00:00 02/09/18 04:00 02/09/18 08:00 Temperature 98.1 F 97.9 F 97.7 F Pulse Rate 96 H 80 96 H Respiratory Rate 20 20 18 Blood Pressure 169/85 H 140/72 132/71 Pulse Oximetry 98 96 99 02/09/18 12:00 Temperature 97.4 F L Pulse Rate 70 Respiratory Rate 20 Blood Pressure 175/85 H Pulse Oximetry 100 Intake & Output 02/08/18 02/09/18 02/09/18 18:59 06:59 18:59 Intake Total 300 / 300 1140 / 1140 200 / 200 Output Total 1999 / 1999 405 / 405 Balance -1700 / -1700 735 / 735 200 / 200 Weight 145.3 kg Intake: IV 300 / 300 200 / 200 200 / 200 Ampicillin Inj 2,000 MG In NS 200 / 200 100 / 100 100 / 100 Inj 100 ML @ 400 mls/hr IV.SIG Q8H [facility] Rx#:[id number] Rocephin Inj 1,000 MG In NS Inj 100 / 100 100 / 100 100 / 100 100 ML @ 200 mls/hr IV.SIG Q12H [facility] Rx#:[id number] Oral 0 / 0 Oral Supplement 240 / 240 Anesthesia Amount 700 / 700 Output: Urine 1999 400 / 400 Estimated Blood Loss 5 / 5 Other: Date of Last Bowel Movement 02/07/18 # Bowel Movements 1 0 - Constitutional no acute distress - Routine HEENT Exam Head: Present: normocephalic - Routine Neck Exam Present: supple - Routine Respiratory Exam Present: CTA bilaterally - Routine Cardiovascular Exam Present: RRR - Routine Abdominal Exam Present: soft, normoactive bowel sounds - Routine Extremities Exam Present: edema Assessment and Plan - Assessment (1) Hypertension Code(s): I10 - Essential (primary) hypertension Status: Acute Qualifiers: Hypertension type: unspecified Qualified Code(s): I10 - Essential (primary ) hypertension (2) CKD (chronic kidney disease) Code(s): N18.9 - Chronic kidney disease, unspecified Status: Acute - Plan Control his blood pressure has hypertensive crisis Blood pressure improved minoxidil 10 mg to twice daily Continue monitor BMP Follow renal functions Cr 3.05 worsening symptoms Drink water
--- NOTE | 2018-02-09 22:13 | P.PNPOD ---
Subjective Interval history: s/p I&D with graft left leg, Major 02/08/18 Physical Exam Vital signs: Vital Signs 02/08/18 22:45 02/08/18 23:00 02/09/18 00:00 Temperature 98.1 F 98.0 F 98.1 F Pulse Rate 102 H 99 H 96 H Respiratory Rate 14 16 20 Blood Pressure 146/94 H 146/88 H 169/85 H Pulse Oximetry 99 99 98 02/09/18 04:00 02/09/18 08:00 02/09/18 12:00 Temperature 97.9 F 97.7 F 97.4 F L Pulse Rate 80 96 H 70 Respiratory Rate 20 18 20 Blood Pressure 140/72 132/71 175/85 H Pulse Oximetry 96 99 100 02/09/18 16:00 02/09/18 20:00 Temperature 97.8 F 98 F Pulse Rate 75 73 Respiratory Rate 18 18 Blood Pressure 179/89 H 151/78 H Pulse Oximetry 99 100 Intake & Output 02/09/18 02/09/18 02/10/18 06:59 18:59 06:59 Intake Total 1140 / 1140 840 / 840 Output Total 405 / 405 300 / 300 Balance 735 / 735 540 / 540 Weight 145.3 kg Intake: IV 200 / 200 300 / 300 Ampicillin Inj 2,000 MG In NS 100 / 100 200 / 200 Inj 100 ML @ 400 mls/hr IV.SIG Q8H [facility] Rx#:[id number] Rocephin Inj 1,000 MG In NS Inj 100 / 100 100 / 100 100 ML @ 200 mls/hr IV.SIG Q12H [facility] Rx#:[id number] Oral 540 / 540 Oral Supplement 240 / 240 Anesthesia Amount 700 / 700 Output: Urine 400 / 400 300 / 300 Estimated Blood Loss 5 / 5 Other: Date of Last Bowel Movement 02/07/18 # Bowel Movements 0 0 Medications and Allergies Active Medications: Active Medications Acetaminophen (Tylenol) 650 mg PO Q4H PRN PRN Reason: Temp > 100.4 Al Hydroxide/Mg Hydroxide (Milk Of Magnesia Liq) 30 ml PO Q12H PRN PRN Reason: Mild Constipation Aspirin (Ecotrin) 325 mg PO DAILY [facility] Last Admin: 02/09/18 09:50 Dose: 325 mg Bisacodyl (Dulcolax Supp) 10 mg RECTAL DAILY PRN PRN Reason: SEVERE CONSITIPATION Chlorhexidine Gluconate (Chlorhexidine 2% Cloth) 3 pack [facility] Stop: 02/11/18 06:47 Clonidine HCl (Catapres) 0.2 mg PO Q12HR [facility] Last Admin: 02/09/18 21:35 Dose: 0.2 mg Clonidine HCl (Catapres) 0.1 mg PO Q6H PRN PRN Reason: SEE LABEL COMMENTS Last Admin: 02/09/18 17:33 Dose: 0.1 mg Heparin Sodium (Porcine) (Heparin Inj) 5,000 units SQ Q12H [facility] Last Admin: 02/09/18 21:35 Dose: 5,000 units Ceftriaxone Sodium 1,000 mg/ (Sodium Chloride) 100 mls @ 200 mls/hr IV.SIG Q12H [facility] Last Infusion: 02/09/18 16:49 Dose: Infused Ampicillin Sodium 2,000 mg/ (Sodium Chloride) 100 mls @ 400 mls/hr IV.SIG Q8H [facility] Last Infusion: 02/09/18 18:10 Dose: Infused Lactated Ringer's (Lr 1000 Ml Inj) 1,000 mls @ 30 mls/hr IV.SIG .Q24H [facility] Stop: 02/11/18 06:47 Last Admin: 02/09/18 07:24 Dose: Not Given Sodium Chloride (Ns Inj) 500 mls @ 30 mls/hr IV.SIG .Q10H [facility] Stop: 02/11/18 06:47 Lactulose (Lactulose Liq) 30 ml PO DAILY PRN PRN Reason: SEVERE CONSITIPATION Metoprolol Tartrate (Lopressor) 25 mg PO [facility] Stop: 02/11/18 06:47 Last Admin: 02/08/18 08:18 Dose: 25 mg Minoxidil (Loniten) 10 mg PO BID [facility] Last Admin: 02/09/18 21:35 Dose: 10 mg Miscellaneous Information ([facility] Nursing Information) 1 each OTHER UNSCH PRN PRN Reason: SEE LABEL COMMENTS Stop: 02/09/18 23:06 Morphine Sulfate (Morphine Inj) 2 mg IV.PUSH Q4H PRN PRN Reason: PAIN 6-10 Last Admin: 02/06/18 22:33 Dose: 2 mg Nifedipine (Procardia Xl) 60 mg PO DAILY [facility] Last Admin: 02/09/18 09:50 Dose: 60 mg Nitroglycerin (Nitro-Bid 2% Oint) 0.5 inch TOPICAL Q6HR PRN PRN Reason: CHEST PAIN Ondansetron HCl (Zofran Inj) 4 mg IV.PUSH Q6H PRN PRN Reason: NAUSEA OR VOMITING Povidone Iodine (Betadine 5% Antisepsis Kit) 1 applicatio EACH [facility] Stop: 02/11/18 06:47 Pravastatin Sodium (Pravachol) 40 mg PO DAILY [facility] Last Admin: 02/09/18 09:50 Dose: 40 mg Senna/Docusate Sodium (Alyssa-Colace) 1 tab PO BID [facility] Last Admin: 02/09/18 21:35 Dose: 1 tab Sennosides (Senokot) 17.2 mg PO Q12H PRN PRN Reason: Moderate Constipation Sodium Chloride (Ns Flush) 2 ml IV.FLUSH UNSCH PRN PRN Reason: FLUSH AFTER USING IV ACCESS Last Admin: 02/06/18 22:34 Dose: 2 ml Temazepam (Restoril) 15 mg PO HS PRN PRN Reason: INSOMNIA Allergies Allergy/AdvReac Type Severity Reaction Status Date / Time nka Allergy Unknown Uncoded 02/26/03 01:23 No Known Allergies Allergy Unknown Uncoded 10/07/17 22:56 Home Medications Medication Instructions Recorded Confirmed Type Additional Bp Meds 02/03/18 History clonidine HCl 0.1 mg PO BID 02/03/18 02/03/18 History furosemide 20 mg PO BID 02/03/18 02/03/18 History Results - Labs CBC & Chem 7: 02/09/18 10:15 02/09/18 10:15 Laboratory Results - last 24 hr 02/09/18 02/09/18 10:15 10:15 WBC 5.5 RBC 3.83 L Hgb 10.9 L Hct 33.0 L MCV 86.3 MCH 28.5 MCHC 33.1 RDW 17.2 Plt Count 211 MPV 8.4 Sodium 142 Potassium 4.2 Chloride 107 Carbon Dioxide 23.9 Anion Gap 11 BUN 29 H Creatinine 3.05 H Estimated GFR 27 L Random Glucose 143 H Calcium 8.2 L Total Bilirubin 0.3 AST 8 L ALT 7 L Alkaline Phosphatase 102 Total Protein 6.7 Albumin 2.7 L - Procedures debridement of the left leg wound/ skin graft placement. Grafts in place. granulation tissue throughout large lateral/posterior/medial calf wound. Assessment and Plan - Assessment (1) Ulcer of left lower extremity Code(s): L97.929 - Non-pressure chronic ulcer of unspecified part of left lower leg with unspecified severity Status: Acute Plan: Will continue with daily dressing changes while in-house. Keep clean, dry, intact. Will need home health for daily dressing changes upon discharge in order for graft to take to reduce moisture on graft. (2) Venous stasis of lower extremity Code(s): I87.8 - Other specified disorders of veins Status: Acute
[2018-02-10] MEDS: Minoxidil 10 MG Tablet PO SCH ×2 (09:22→21:14)
[2018-02-10] MEDS: Heparin - SQ 10,000 UNITS/ML Vial SQ SCH ×2 (09:22→21:14)
[2018-02-10] MEDS: Senna/Docusate Sodium 8.6/50 MG Tablet PO SCH ×2 (09:23→21:13)
--- NOTE | 2018-02-10 11:05 | P.PNIM ---
Subjective Interval history: f/u; left leg wound in no acute distress. no fever. pain is controlled. has slight headache. Physical Exam Vital signs: Vital Signs 02/09/18 12:00 02/09/18 16:00 02/09/18 20:00 Temperature 97.4 F L 97.8 F 98 F Pulse Rate 70 75 72 Respiratory Rate 20 18 18 Blood Pressure 175/85 H 179/89 H 151/78 H Pulse Oximetry 100 99 100 02/09/18 23:49 02/10/18 00:00 02/10/18 04:00 Temperature 97.7 F 97.6 F Pulse Rate 94 H 76 79 Respiratory Rate 18 18 Blood Pressure 154/79 H 148/70 H Pulse Oximetry 100 99 02/10/18 08:00 Temperature 97.9 F Pulse Rate 78 Respiratory Rate 20 Blood Pressure 142/70 H Pulse Oximetry 97 Intake & Output 02/09/18 02/10/18 02/10/18 18:59 06:59 18:59 Intake Total 840 / 840 560 / 560 Output Total 300 / 300 200 / 200 Balance 540 / 540 360 / 360 Weight 146.4 kg Intake: IV 300 / 300 200 / 200 Ampicillin Inj 2,000 MG In NS 200 / 200 100 / 100 Inj 100 ML @ 400 mls/hr IV.SIG Q8H [facility] Rx#:[id number] Rocephin Inj 1,000 MG In NS Inj 100 / 100 100 / 100 100 ML @ 200 mls/hr IV.SIG Q12H [facility] Rx#:[id number] Oral 540 / 540 360 / 360 Output: Urine 300 / 300 200 / 200 Urine/Stool Mix 0 / 0 Other: # Bowel Movements 0 - Constitutional no acute distress - Routine Respiratory Exam Present: CTA bilaterally - Routine Cardiovascular Exam Present: RRR - Routine Abdominal Exam Present: soft - Routine Extremities Exam Comments: left leg covered with clean dressing. - Routine Neurological Exam Present: alert, oriented X3 Results - Labs CBC & Chem 7: 02/09/18 10:15 02/09/18 10:15 Laboratory Results - last 24 hr 02/09/18 10:15 Sodium 142 Potassium 4.2 Chloride 107 Carbon Dioxide 23.9 Anion Gap 11 BUN 29 H Creatinine 3.05 H Estimated GFR 27 L Random Glucose 143 H Calcium 8.2 L Total Bilirubin 0.3 AST 8 L ALT 7 L Alkaline Phosphatase 102 Total Protein 6.7 Albumin 2.7 L - Procedures debridement of the left leg wound/ skin graft placement. Grafts in place. granulation tissue throughout large lateral/posterior/medial calf wound. Assessment and Plan - Assessment (1) HTN (hypertension) Code(s): I10 - Essential (primary) hypertension Status: Acute (2) Chest pain Code(s): R07.9 - Chest pain, unspecified Status: Acute (3) CKD (chronic kidney disease) Code(s): N18.9 - Chronic kidney disease, unspecified Status: Acute (4) Leg wound, left Code(s): S81.802A - Unspecified open wound, left lower leg, initial encounter Status: Acute - Plan HTN urgency: secondary to Non-Compliance- BP overall better controlled. -We will continue on clonidine and Procardia. Blood pressure overall improved. -Minoxidil was added per nephrology. Clonidine as needed. Chest Pain: Likely demand ischemia from accelerated hypertension. Serial cardiac enzymes and EKG negative. Resolved. LLE Wound: +foul-smelling wound to left lower extremity on presentation, X-ray w/ soft tissue prominence, no underlying bony abnormality, images reviewed. --Status post debridement and skin graft placement. - Continue IV ABX and medical management. -Wound cultures growing E. coli and enterococcus. Ampicillin and ceftriaxone ordered per sensitivity profile. Changed Ampicillin to Q8hrs given renal functions. -podiatry following. CKD: Acute on Chronic Renal Failure, likely due to chronically uncontrolled HTN from non-compliance, no outpatient follow-up -Appreciate nephrology input. Recommends controlling blood pressure and conservative management for now. Outpatient follow-up. Noncompliance: The patient was counseled at length about the risk of stroke, heart failure, heart attack from uncontrolled hypertension and lack of medical follow-up. He voiced understanding. DVT Prophylaxis: Heparin sq Discharge Planning: when cleared by podiatry and nephrology. (2) Chest pain Qualifiers: Chest pain type: unspecified Qualified Code(s): R07.9 - Chest pain, unspecified
--- NOTE | 2018-02-10 17:38 | P.PNNP ---
Subjective Interval history: Patient is doing okay denies major complaints Physical Exam Vital signs: Vital Signs 02/09/18 20:00 02/09/18 23:49 02/10/18 00:00 Temperature 98 F 97.7 F Pulse Rate 72 94 H 76 Respiratory Rate 18 18 Blood Pressure 151/78 H 154/79 H Pulse Oximetry 100 100 02/10/18 04:00 02/10/18 08:00 02/10/18 12:00 Temperature 97.6 F 97.9 F Pulse Rate 79 78 82 Respiratory Rate 18 20 20 Blood Pressure 148/70 H 142/70 H 166/83 H Pulse Oximetry 99 97 97 Intake & Output 02/09/18 02/10/18 02/10/18 18:59 06:59 18:59 Intake Total 840 / 840 560 / 560 Output Total 300 / 300 200 / 200 Balance 540 / 540 360 / 360 Weight 146.4 kg Intake: IV 300 / 300 200 / 200 Ampicillin Inj 2,000 MG In NS 200 / 200 100 / 100 Inj 100 ML @ 400 mls/hr IV.SIG Q8H [facility] Rx#:[id number] Rocephin Inj 1,000 MG In NS Inj 100 / 100 100 / 100 100 ML @ 200 mls/hr IV.SIG Q12H [facility] Rx#:[id number] Oral 540 / 540 360 / 360 Output: Urine 300 / 300 200 / 200 Urine/Stool Mix 0 / 0 Other: # Bowel Movements 0 - Constitutional no acute distress - Routine HEENT Exam Head: Present: normocephalic Eye: Present: EOMI - Routine Neck Exam Present: supple - Routine Respiratory Exam Present: CTA bilaterally - Routine Abdominal Exam Present: soft, normoactive bowel sounds - Routine Extremities Exam Present: edema Assessment and Plan - Assessment (1) Hypertension Code(s): I10 - Essential (primary) hypertension Status: Acute Qualifiers: Hypertension type: unspecified Qualified Code(s): I10 - Essential (primary ) hypertension (2) CKD (chronic kidney disease) Code(s): N18.9 - Chronic kidney disease, unspecified Status: Acute - Plan Control his blood pressure has hypertensive crisis Blood pressure improved minoxidil 10 mg to twice daily and labetalol 100 mg twice daily Continue monitor BMP Follow renal functions Cr 3.05 yesterday BMP ordered for tomorrow
[2018-02-10] MEDS: Labetalol 100 MG Tablet PO SCH (21:13)
[2018-02-11 08:43] LABS: Calcium 7.9 mg/dL (8.5-10.1); Carbon Dioxide 24.8 meq/L (21.0-32.0)
[2018-02-11 09:15] VITALS: RESP 20
[2018-02-11] MEDS: Minoxidil 10 MG Tablet PO SCH (09:39)
[2018-02-11] MEDS: Senna/Docusate Sodium 8.6/50 MG Tablet PO SCH (09:39)
[2018-02-11] MEDS: Heparin - SQ 10,000 UNITS/ML Vial SQ SCH (09:39)
[2018-02-11] MEDS: Labetalol 100 MG Tablet PO SCH (09:39)
--- NOTE | 2018-02-11 11:06 | P.PNPOD ---
Review of Systems All other systems reviewed negative except as stated in HPI Physical Exam Vital signs: Vital Signs 02/10/18 12:00 02/10/18 16:00 02/10/18 18:05 Temperature 97.2 F L Pulse Rate 82 79 Respiratory Rate 20 20 Blood Pressure 166/83 H 167/92 H Pulse Oximetry 97 99 97 02/10/18 20:00 02/11/18 00:00 02/11/18 04:00 Temperature 98.4 F 98.3 F 98.3 F Pulse Rate 98 H 99 H 89 Respiratory Rate 18 20 16 Blood Pressure 177/91 H 172/81 H 105/68 Pulse Oximetry 95 96 98 02/11/18 08:00 Temperature 98.6 F Pulse Rate 89 Respiratory Rate 20 Blood Pressure 129/60 Pulse Oximetry 97 Intake & Output 02/10/18 02/11/18 02/11/18 18:59 06:59 18:59 Intake Total 1100 / 1100 200 / 200 100 / 100 Output Total 650 / 650 450 / 450 Balance 450 / 450 -250 / -250 100 / 100 Weight 148.8 kg Intake: IV 200 / 200 200 / 200 100 / 100 Ampicillin Inj 2,000 MG In NS 100 / 100 200 / 200 100 / 100 Inj 100 ML @ 400 mls/hr IV.SIG Q8H [facility] Rx#:[id number] Rocephin Inj 1,000 MG In NS Inj 100 / 100 100 ML @ 200 mls/hr IV.SIG Q12H [facility] Rx#:[id number] Oral 900 / 900 Output: Urine 650 / 650 450 / 450 Other: Date of Last Bowel Movement 02/08/18 Narrative: Dressing clean, dry, intact. Graft in place to wounds L leg. Medications and Allergies Active Medications: Active Medications Acetaminophen (Tylenol) 650 mg PO Q4H PRN PRN Reason: Temp > 100.4 Al Hydroxide/Mg Hydroxide (Milk Of Magnesia Liq) 30 ml PO Q12H PRN PRN Reason: Mild Constipation Aspirin (Ecotrin) 325 mg PO DAILY [facility] Last Admin: 02/11/18 09:39 Dose: 325 mg Bisacodyl (Dulcolax Supp) 10 mg RECTAL DAILY PRN PRN Reason: SEVERE CONSITIPATION Clonidine HCl (Catapres) 0.2 mg PO Q12HR [facility] Last Admin: 02/11/18 09:39 Dose: 0.2 mg Clonidine HCl (Catapres) 0.1 mg PO Q6H PRN PRN Reason: SEE LABEL COMMENTS Last Admin: 02/09/18 17:33 Dose: 0.1 mg Heparin Sodium (Porcine) (Heparin Inj) 5,000 units SQ Q12H [facility] Last Admin: 02/11/18 09:39 Dose: 5,000 units Ceftriaxone Sodium 1,000 mg/ (Sodium Chloride) 100 mls @ 200 mls/hr IV.SIG Q12H [facility] Last Admin: 02/11/18 04:09 Dose: Not Given Ampicillin Sodium 2,000 mg/ (Sodium Chloride) 100 mls @ 400 mls/hr IV.SIG Q8H [facility] Last Infusion: 02/11/18 09:55 Dose: Infused Labetalol HCl (Trandate) 100 mg PO BID [facility] Last Admin: 02/11/18 09:39 Dose: 100 mg Lactulose (Lactulose Liq) 30 ml PO DAILY PRN PRN Reason: SEVERE CONSITIPATION Minoxidil (Loniten) 10 mg PO BID [facility] Last Admin: 02/11/18 09:39 Dose: 10 mg Nifedipine (Procardia Xl) 60 mg PO DAILY [facility] Last Admin: 02/11/18 09:39 Dose: 60 mg Nitroglycerin (Nitro-Bid 2% Oint) 0.5 inch TOPICAL Q6HR PRN PRN Reason: CHEST PAIN Ondansetron HCl (Zofran Inj) 4 mg IV.PUSH Q6H PRN PRN Reason: NAUSEA OR VOMITING Pravastatin Sodium (Pravachol) 40 mg PO DAILY [facility] Last Admin: 02/11/18 09:39 Dose: 40 mg Senna/Docusate Sodium (Alyssa-Colace) 1 tab PO BID [facility] Last Admin: 02/11/18 09:39 Dose: 1 tab Sennosides (Senokot) 17.2 mg PO Q12H PRN PRN Reason: Moderate Constipation Sodium Chloride (Ns Flush) 2 ml IV.FLUSH UNSCH PRN PRN Reason: FLUSH AFTER USING IV ACCESS Last Admin: 02/06/18 22:34 Dose: 2 ml Temazepam (Restoril) 15 mg PO HS PRN PRN Reason: INSOMNIA Allergies Allergy/AdvReac Type Severity Reaction Status Date / Time nka Allergy Unknown Uncoded 02/26/03 01:23 No Known Allergies Allergy Unknown Uncoded 10/07/17 22:56 Home Medications Medication Instructions Recorded Confirmed Type Additional Bp Meds 02/03/18 History clonidine HCl 0.1 mg PO BID 02/03/18 02/03/18 History furosemide 20 mg PO BID 02/03/18 02/03/18 History Results - Labs CBC & Chem 7: 02/09/18 10:15 02/11/18 08:07 Laboratory Results - last 24 hr 02/11/18 08:07 Sodium 142 Potassium 4.0 Chloride 109 H Carbon Dioxide 24.8 Anion Gap 8 BUN 34 H Creatinine 3.26 H Estimated GFR 25 L Random Glucose 106 Calcium 7.9 L - Procedures debridement of the left leg wound/ skin graft placement. Grafts in place. granulation tissue throughout large lateral/posterior/medial calf wound. Assessment and Plan - Assessment (1) Ulcer of left lower extremity Code(s): L97.929 - Non-pressure chronic ulcer of unspecified part of left lower leg with unspecified severity Status: Acute Plan: Ok with discharge home today with home health for every other day dressing changes as follows: Left leg: Adaptic over all open areas and graft (do not disturb graft) ABD pads over wounds, cling from toes to below knee, tonya from toes to below knee with mild compression. Follow up with Dr Zaidi in 1 week (2) Venous stasis of lower extremity Code(s): I87.8 - Other specified disorders of veins Status: Acute
--- NOTE | 2018-02-11 13:00 | P.DS ---
Date of admission: 02/03/18 22:55 Primary care physician: Blayne Zavala MD Brief History from admission: This is a 47-year-old male with a PMH of HTN, CKD and Non-compliance who presented to the ER w/ complaints of chest pain x1 day. States pain is substernal, moderate, 7/10, non-radiating, associated w/ SOB. On arrival, BP 232/139, HR 63, reports non-compliance w/ meds x1 wk, states has no PCP for follow-up, obtains refills in the ER. CBC essentially unremarkable. INR 1.0. Creatinine 3.42, previously 3.22 on 11/26/2017. Reports no outpatient Nephrology follow up. Trop negative. Also noted to have foul-smelling wound to LLE which patient states is chronic, afebrile, no leukocytosis. CXR w/ no acute findings. Tib/Fib X-ray was soft tissue prominence, no underlying bony abnormality. S/p multiple doses of antihypertensives in the ER including Nifedipine 60mg PO, Metoprolol 75mg PO, Hydralazine 50mg PO, Clonidine 0.1mg PO and NTG w/ minimal improvement in BP, however now chest pain free. DS: Diagnosis - Discharge Diagnosis (1) Leg wound, left Status: Acute (2) Ulcer of left lower extremity Status: Acute DS: Medications - Discharge Medications Prescriptions: amoxicillin 875 mg PO Q12HR #8 tab labetalol 100 mg PO BID #60 tab minoxidil 10 mg PO BID #60 tab nifedipine 60 mg PO DAILY #30 tab pravastatin 40 mg PO DAILY #30 tab DS: Summary Hospital Course: Patient was admitted. Underwent debridement of left lower extremity ulcer w/ culture which showed e. coli and enterococcus with podiatry. He underwent repeat debridement this time with amnion graft placement. Patient's wound was healing well with good granulation tissue. Patient's blood pressure has stabilized with minoxidil and labetalol under nephrology's comanagement. Patient's chest pressure that he had initially had self resolved. Patient has been maximal benefit from hospitalization and is clinically stable for discharge. - Time Spent with Patient Total time spent providing and/or coordinating discharge services: Less than 30 minutes - Quality: VTE Deep Vein Thrombosis/Pulmonary Embolism Present on Admission: No Exam Vital signs: Vital Signs 02/10/18 16:00 02/10/18 18:05 02/10/18 20:00 Temperature 97.2 F L 98.4 F Pulse Rate 79 98 H Respiratory Rate 20 18 Blood Pressure 167/92 H 177/91 H Pulse Oximetry 99 97 95 02/11/18 00:00 02/11/18 04:00 02/11/18 08:00 Temperature 98.3 F 98.3 F 98.6 F Pulse Rate 99 H 89 89 Respiratory Rate 20 16 20 Blood Pressure 172/81 H 105/68 129/60 Pulse Oximetry 96 98 97 Intake & Output 02/10/18 02/11/18 02/11/18 18:59 06:59 18:59 Intake Total 1100 / 1100 200 / 200 100 / 100 Output Total 650 / 650 450 / 450 Balance 450 / 450 -250 / -250 100 / 100 Weight 148.8 kg Intake: IV 200 / 200 200 / 200 100 / 100 Ampicillin Inj 2,000 MG In NS 100 / 100 200 / 200 100 / 100 Inj 100 ML @ 400 mls/hr IV.SIG Q8H [facility] Rx#:[id number] Rocephin Inj 1,000 MG In NS Inj 100 / 100 100 ML @ 200 mls/hr IV.SIG Q12H [facility] Rx#:[id number] Oral 900 / 900 Output: Urine 650 / 650 450 / 450 Other: Date of Last Bowel Movement 02/08/18 Narrative: Patient lying in bed, left lower leg wound appears to be healing well, healthy granulation tissue Results Procedures completed during hospitalization: debridement of the left leg wound/ skin graft placement. Grafts in place. granulation tissue throughout large lateral/posterior/medial calf wound. Completed studies during hospitalization: Pending at discharge 02/05/18 07:35 Surgical [PTH] Routine Labs on day of discharge: Labs from last 24 hours 02/11/18 08:07 Sodium 142 Potassium 4.0 Chloride 109 H Carbon Dioxide 24.8 Anion Gap 8 BUN 34 H Creatinine 3.26 H Estimated GFR 25 L Random Glucose 106 Calcium 7.9 L - Impressions ITS Impressions Chest X-Ray 02/03/18 18:43 CONCLUSION: No acute cardiopulmonary disease. Tibia/Fibula X-Ray 02/03/18 21:00 CONCLUSION: Soft tissue prominence with no underlying bony abnormality. Discharge Plan - Discharge Disposition Patient Disposition: 01 Discharge Home - Discharge Condition Condition: Stable - Discharge Order Discharge Orders: Discharge Order (Routine); Ordered 02/11/18 Ordered By: William Castellanos - Physicians Team Primary Care Provider: Blayne Zavala Attending Provider: William Castellanos Other Providers: Dionicio Booker MD ; Teodora Zaidi DPM
[2018-02-11 13:27] VITALS: BP 108/53; TEMP 97.8
[2018-02-11 14:35] VITALS: O2SAT 93
[2018-02-11 14:57] VITALS: PULSE 80
[2018-02-11] MEDS ORDERED: Minoxidil 10 MG Tablet PO SCH (15:00)
--- NOTE | 2018-02-11 15:04 | P.PNNP ---
Subjective Interval history: Patient is doing okay denies complaint Physical Exam Vital signs: Vital Signs 02/10/18 16:00 02/10/18 18:05 02/10/18 20:00 Temperature 97.2 F L 98.4 F Pulse Rate 79 98 H Respiratory Rate 20 18 Blood Pressure 167/92 H 177/91 H Pulse Oximetry 99 97 95 02/11/18 00:00 02/11/18 04:00 02/11/18 08:00 Temperature 98.3 F 98.3 F 98.6 F Pulse Rate 99 H 89 89 Respiratory Rate 20 16 20 Blood Pressure 172/81 H 105/68 129/60 Pulse Oximetry 96 98 97 02/11/18 12:00 02/11/18 14:35 Temperature 97.8 F Pulse Rate 80 Respiratory Rate 20 Blood Pressure 108/53 L Pulse Oximetry 98 93 L Intake & Output 02/10/18 02/11/18 02/11/18 18:59 06:59 18:59 Intake Total 1100 / 1100 200 / 200 100 / 100 Output Total 650 / 650 450 / 450 Balance 450 / 450 -250 / -250 100 / 100 Weight 148.8 kg Intake: IV 200 / 200 200 / 200 100 / 100 Ampicillin Inj 2,000 MG In NS 100 / 100 200 / 200 100 / 100 Inj 100 ML @ 400 mls/hr IV.SIG Q8H RASHAAD Rx#:[id number] Rocephin Inj 1,000 MG In NS Inj 100 / 100 100 ML @ 200 mls/hr IV.SIG Q12H RASHAAD Rx#:[id number] Oral 900 / 900 Output: Urine 650 / 650 450 / 450 Other: Date of Last Bowel Movement 02/08/18 - Constitutional no acute distress - Routine HEENT Exam Eye: Present: EOMI - Routine Neck Exam Present: supple - Routine Respiratory Exam Present: CTA bilaterally - Routine Cardiovascular Exam Present: RRR - Routine Abdominal Exam Present: soft, normoactive bowel sounds - Routine Extremities Exam Present: edema Assessment and Plan - Assessment (1) Hypertension Code(s): I10 - Essential (primary) hypertension Status: Acute Qualifiers: Hypertension type: unspecified Qualified Code(s): I10 - Essential (primary ) hypertension (2) CKD (chronic kidney disease) Code(s): N18.9 - Chronic kidney disease, unspecified Status: Acute - Plan Control his blood pressure has hypertensive crisis Blood pressure improved change minoxidil 5 mg to twice daily and labetalol 100 mg twice daily Continue monitor BMP Follow renal functions Cr 3.2 Patient blood pressure can be monitored as outpatient along with kidney function
== END 2018-02-11 16:29 | disposition home or self-care (01) ==
LOC: NEPE 18:07 → NEDA 22:55 → HCIS 02-04 03:42 → N04 02-07 19:40
PROVIDERS: ADMIT Hospitalist; ATTEND Hospitalist